=== PATIENT | female | born 1960 | race Caucasian/White ===

== ENCOUNTER 2019-04-28 18:33 | Emergency (ER) | payer SELFPAY ==
[2019-04-28] MEDS ORDERED: MORPHINE 4 MG/ML SYR ONE (19:11)
[2019-04-28] MEDS ORDERED: ONDANSETRON 4 MG (ODT) TAB ONE (19:12)
--- NOTE | 2019-04-28 19:28 | ER ---
Nurse's Notes [facility] Name: Emilee Wright Age: 59 yrs Sex: Female : 1960 Arrival Date: 04/28/2019 Time: 18:36 Bed 18 Private MD: Diagnosis: Zoster [herpes zoster] Presentation: 04/28 18:39 Presenting complaint: Painful rash on left flank and abdomen x 1 week. Seen by PCP, hb told she has shingles. Transition of care: patient was not received from another setting of care. Onset of symptoms was April 28, 2019. Risk Assessment: Do you want to hurt yourself or someone else? Patient reports no desire to harm self or others. Initial Sepsis Screen: Does the patient meet any 2 criteria? No. Patient's initial sepsis screen is negative. Does the patient have a suspected source of infection? No. Patient's initial sepsis screen is negative. Care prior to arrival: None. 18:39 Method Of Arrival: Ambulatory hb 18:39 Acuity: CARLYLE 4 hb Historical: - Allergies: 18:41 diphenhydramine HCl; hb 18:41 loratadine; hb - Home Meds: 18:41 Metformin Oral [Active]; indapamide oral oral [Active]; unknown insulin [Active]; hb unknown HTN med [Active]; - PMHx: 18:41 Diabetes - IDDM; Hypertension; hb - PSHx: 18:41 Cholecystectomy; hb - Immunization history:: Adult Immunizations up to date. - Social history:: Smoking status: Patient/guardian denies using tobacco. - Ebola Screening: : No symptoms or risks identified at this time. Screenin:20 Abuse screen: Denies threats or abuse. Nutritional screening: No deficits noted. ea Tuberculosis screening: No symptoms or risk factors identified. Fall Risk None identified. Assessment: 19:18 General: Appears in no apparent distress. Behavior is calm, cooperative, appropriate ea for age. Pain: Complains of pain in left flank. Neuro: Level of Consciousness is awake, alert, obeys commands, Oriented to person, place, time, situation. Respiratory: Airway is patent Respiratory effort is even, unlabored, Respiratory pattern is regular, symmetrical. Derm: Skin is pink, warm \T\ dry. 19:52 Reassessment: Patient and/or family updated on plan of care and expected duration. Pain ea level reassessed. Patient is alert, oriented x 3, equal unlabored respirations, skin warm/dry/pink. Discharge instruction given to patient, verbalized the understanding of instruction. Pt left ED ambulatory accompanied by family, tolerating well. Vital Signs: 18:41 BP 165 / 74; Pulse 83; Resp 16; Temp 97.5; Pulse Ox 100% on R/A; Weight 65.32 kg; hb Height 5 ft. 3 in. (160.02 cm); Pain 10/10; 18:41 Body Mass Index 25.51 (65.32 kg, 160.02 cm) hb ED Course: 18:36 Patient arrived in ED. as 18:40 Triage completed. hb 18:41 Arm band placed on. hb 18:51 Evgeny Carrillo NP is PHCP. pm1 18:51 Lazaro Simpson MD is Attending Physician. pm1 19:20 Patient has correct armband on for positive identification. Bed in low position. Call ea light in reach. 19:53 No provider procedures requiring assistance completed. Patient did not have IV access ea during this emergency room visit. 19:55 Chrissy West RN is Primary Nurse. ea Administered Medications: 19:20 Drug: morphine 4 mg {Note: RASS 0.} Route: IM; Site: right deltoid; ea 19:52 Follow up: Response: No adverse reaction; RASS: Alert and Calm (0) ea 19:20 Drug: Zofran 4 mg Route: PO; ea 19:52 Follow up: Response: No adverse reaction; Nausea is decreased ea 19:52 Drug: Neurontin 300 mg Route: PO; ea 19:53 Follow up: Response: Medication administered at discharge. ea 19:52 Drug: Valtrex 1000 mg Route: PO; ea 19:53 Follow up: Response: Medication administered at discharge. ea Outcome: 19:27 Discharge ordered by MD. pm1 19:54 Discharged to home ambulatory, with family. ea 19:54 Condition: stable 19:54 Discharge instructions given to patient, Instructed on discharge instructions, follow up and referral plans. medication usage, Demonstrated understanding of instructions, follow-up care, medications, Prescriptions given X 3. 19:55 Patient left the ED. ea Signatures: Parul Daniel Patrick, NP PASSENGER SERVICE AGENT pm1 Stephanie Guadarrama RN RN Chrissy West RN RN ea Corrections: (The following items were deleted from the chart) 19:34 19:20 morphine 4 mg IM in right deltoid angelika 19:52 19:52 Response: No adverse reaction angelika carney
--- NOTE | 2019-04-28 19:28 | EDPHYS ---
Physician Documentation [facility] Name: Emilee Wright Age: 59 yrs Sex: Female : 1960 Arrival Date: 04/28/2019 Time: 18:36 Bed 18 Private MD: ED Physician Lazaro Simpson HPI: 04/28 19:15 This 59 yrs old Female presents to ER via Ambulatory with complaints of pm1 Shingles. 19:15 The patient's rash thought to be caused by shingles. The rash is located on the left pm1 mid back and left side abdomen. The rash can be described as vesicular. Onset: The symptoms/episode began/occurred 9 day(s) ago. Associated signs and symptoms: Pertinent negatives: fever. Severity of symptoms: in the emergency department the symptoms are worse. Treatment given at home: Has been taking Tramadol but not effective. The patient has not experienced similar symptoms in the past. The patient has been recently seen by a physician: the patient's primary care provider, Dr. Whitfield. Recommended continuation of Tramadol for shingles. Historical: - Allergies: 18:41 diphenhydramine HCl; hb 18:41 loratadine; hb - Home Meds: 18:41 Metformin Oral [Active]; indapamide oral oral [Active]; unknown insulin [Active]; hb unknown HTN med [Active]; - PMHx: 18:41 Diabetes - IDDM; Hypertension; hb - PSHx: 18:41 Cholecystectomy; hb - Immunization history:: Adult Immunizations up to date. - Social history:: Smoking status: Patient/guardian denies using tobacco. - Ebola Screening: : No symptoms or risks identified at this time. ROS: 19:16 Constitutional: Negative for fever, chills, and weight loss, Eyes: Negative for injury, pm1 pain, redness, and discharge, ENT: Negative for injury, pain, and discharge, Neck: Negative for injury, pain, and swelling, Cardiovascular: Negative for chest pain, palpitations, and edema, Respiratory: Negative for shortness of breath, cough, wheezing, and pleuritic chest pain, Abdomen/GI: Negative for abdominal pain, nausea, vomiting, diarrhea, and constipation, Back: Negative for injury and pain, MS/Extremity: Negative for injury and deformity. 19:16 Neuro: Negative for headache, weakness, numbness, tingling, and seizure. 19:16 Skin: Positive for rash, of the left mid back and left side of abdomen. Exam: 19:16 Constitutional: This is a well developed, well nourished patient who is awake, alert, pm1 and in no acute distress. Head/Face: Normocephalic, atraumatic. Chest/axilla: Normal chest wall appearance and motion. Nontender with no deformity. No lesions are appreciated. Cardiovascular: Regular rate and rhythm with a normal S1 and S2. No gallops, murmurs, or rubs. Normal PMI, no JVD. No pulse deficits. Respiratory: Lungs have equal breath sounds bilaterally, clear to auscultation and percussion. No rales, rhonchi or wheezes noted. No increased work of breathing, no retractions or nasal flaring. Abdomen/GI: Soft, non-tender, with normal bowel sounds. No distension or tympany. No guarding or rebound. No evidence of tenderness throughout. Back: No spinal tenderness. No costovertebral tenderness. Full range of motion. 19:16 Skin: Appearance: normal except for affected area, consistent with zoster. Vital Signs: 18:41 BP 165 / 74; Pulse 83; Resp 16; Temp 97.5; Pulse Ox 100% on R/A; Weight 65.32 kg; hb Height 5 ft. 3 in. (160.02 cm); Pain 10/10; 18:41 Body Mass Index 25.51 (65.32 kg, 160.02 cm) hb MDM: 19:02 Patient medically screened. pm1 19:26 Data reviewed: vital signs. Data interpreted: Pulse oximetry: on room air is 100 %. pm1 Interpretation: normal. Counseling: I had a detailed discussion with the patient and/or guardian regarding: the historical points, exam findings, and any diagnostic results supporting the discharge/admit diagnosis, the need for outpatient follow up, to return to the emergency department if symptoms worsen or persist or if there are any questions or concerns that arise at home. 19:44 ED course: Patient reports increased pain with new blister to left back area. Will pm1 discharge patient with valtrex and gabapentin . Administered Medications: 19:20 Drug: morphine 4 mg {Note: RASS 0.} Route: IM; Site: right deltoid; ea 19:52 Follow up: Response: No adverse reaction; RASS: Alert and Calm (0) ea 19:20 Drug: Zofran 4 mg Route: PO; ea 19:52 Follow up: Response: No adverse reaction; Nausea is decreased ea 19: Drug: Neurontin 300 mg Route: PO; ea 19:53 Follow up: Response: Medication administered at discharge. ea 19: Drug: Valtrex 1000 mg Route: PO; ea 19:53 Follow up: Response: Medication administered at discharge. ea Disposition: 04/28/19 19:27 Discharged to Home. Impression: Zoster [herpes zoster]. - Condition is Stable. - Discharge Instructions: Shingles. - Prescriptions for Neurontin 300 mg Oral Capsule - take 1 capsule by ORAL route every 8 hours; 30 capsule. Valtrex 1 g Oral Tablet - take 1 tablet by ORAL route every 8 hours for 7 days; 21 tablet. Tylenol- Codeine #3 300-30 mg Oral Tablet - take 2 tablets by ORAL route every 6 hours As needed; 20 tablet. - Medication Reconciliation Form, Thank You Letter, Antibiotic Education, Prescription Opioid Use form. - Follow up: Emergency Department; When: As needed; Reason: Worsening of condition. Follow up: Private Physician; When: 2 - 3 days; Reason: Recheck today's complaints, Continuance of care, Re-evaluation by your physician. - Problem is new. - Symptoms have improved. Addendum: 04/30/2019 07:40 Co-signature as Attending Physician, Lazaro Simpson MD. r n Signatures: Lazaro Simpson MD MD rn Marinas, Patrick, MERA CHEESE GRADER pm1 Stephanie Guadarrama RN RN hb Antunez, Elena, RN RN ea Corrections: (The following items were deleted from the chart) 04/28 19:55 19:27 04/28/2019 19:27 Discharged to Home. Impression: Zoster [herpes zoster]. ea Condition is Stable. Forms are Medication Reconciliation Form, Thank You Letter, Antibiotic Education, Prescription Opioid Use. Follow up: Emergency Department; When: As needed; Reason: Worsening of condition. Follow up: Private Physician; When: 2 - 3 days; Reason: Recheck today's complaints, Continuance of care, Re-evaluation by your physician. Problem is new. Symptoms have improved. pm1
[2019-04-28] MEDS ORDERED: VALACYCLOVIR 500 MG TAB ONE (19:48)
[2019-04-28] MEDS ORDERED: GABAPENTIN 300 MG CAP ONE (19:48)
[2019-04-28 20:11] VITALS: BP 165/74; TEMP 97.5; O2SAT 100
== END 2019-04-28 19:55 | disposition home or self-care (01) ==
LOC: ER 18:33
DX: B02.9 Zoster without complications (principal); I10 Essential (primary) hypertension; E11.9 Type 2 diabetes mellitus without complications; Z88.8 Allergy status to other drugs, medicaments and biological substances; Z79.4 Long term (current) use of insulin
CPT/HCPCS: 96372; 99283

== ENCOUNTER 2019-12-23 14:52 | Emergency (ER) | payer SELFPAY ==
--- OUTSIDE RECORDS SUMMARY | 2019-12-23 14:54 | XMS REPORT | Summary of Care ---
:1960 Author Organization [facility] Address [address] [place] [id number] Care Team Providers Name Role Phone Chandra Hopson MD Primary Care Provider Reason for Visit Reason Comments Results Encounter Details Date Type Department Care Team Description 09/27/2019 Telephone [facility] Family Medicine Chandra Espinoza MD Results - [place] [address] [address] [facility] [address] [facility] [place] [address] [place] [address] [phone] Allergies Active Allergy Reactions Severity Noted Date Comments Diphenhydramine Hcl Swelling 07/25/2015 Loratadine Other - See comments 07/25/2015 documented as of this encounter (statuses as of 09/27/2019) Medications Medication Sig Dispensed Refills Start Date End Date Status ondansetron (ZOFRAN, Take 1 Tab by 12 Tab 0 07/25/2015 Active HYDROCHLORIDE,) 4 mouth every 8 mg tablet (eight) hours as needed for Nausea and Vomiting (N/V). pioglitazone 15 mg Take 1 tablet by 90 tablet 3 04/04/2018 Active tabletIndications: mouth daily. Type 2 diabetes mellitus, uncontrolled, with neuropathy Lancets (ONETOUCH Use as directed. E 300 Each 3 04/04/2018 Active ULTRASOFT LANCETS) 11.40. Three times MiscIndications: Type daily 2 diabetes mellitus, uncontrolled, with neuropathy blood sugar Use as directed. E 300 Strip 3 04/04/2018 Active diagnostic (ONETOUCH 11.40. Check three VERIO) times daily stripIndications: Type 2 diabetes mellitus, uncontrolled, with neuropathy Blood-Glucose Meter Use as directed 1 Each 0 04/04/2018 Active (ADAPTIX VERIO IQ METER) MiscIndications: Type 2 diabetes mellitus, uncontrolled, with neuropathy Insulin NPH-Regular inject 30 Units 54 mL 1 04/10/2018 Active Human Rec (HUMULIN under the skin 2 70/30 U-100 KWIKPEN) (two) times daily 100 unit/mL (70-30) before breakfast injectionIndications: and dinner. Type 2 diabetes mellitus, uncontrolled, with neuropathy aspirin 81 mg Take 1 tablet by 30 tablet 2 05/12/2018 Active chewable tablet mouth daily. rosuvastatin 20 mg Take 1 tablet by 90 tablet 1 06/29/2018 Active tabletIndications: mouth at bedtime. Dyslipidemia lisinopril 5 mg Take 1 tablet by 90 tablet 1 06/29/2018 Active tabletIndications: mouth daily. Essential hypertension metformin ER 500 mg Take 1 tablet by 180 tablet 3 08/15/2018 Active 24 hr mouth 2 (two) tabletIndications: times daily with Type 2 diabetes meals. mellitus, uncontrolled, with neuropathy Insulin Use as directed 60 Syringe 5 04/23/2019 Ac tive Syringe-Needle U-100 0.3 mL 30 SyrgIndications: Type 2 diabetes mellitus, uncontrolled, with neuropathy INDAPAMIDE 2.5 mg TAKE 1 TABLET BY 90 tablet 1 05/21/2019 Active tabletIndications: MOUTH DAILY Essential hypertension TRAMADOL 50 mg TAKE 1 TABLET BY 120 tablet 0 09/24/2019 Active tabletIndications: MOUTH EVERY 6 Arthritis HOURS NEEDED FOR PAIN. insulin NPH and ADMINISTER 30 10 mL 0 09/22/2019 Active regular human 70-30 UNITS UNDER THE (NOVOLIN 70/30 U-100 SKIN TWICE DAILY INSULIN) 100 unit/mL BEFORE BREAKFAST (70-30) AND DINNER injectionIndications: Type 2 diabetes mellitus, uncontrolled, with neuropathy documented as of this encounter (statuses as of 09/27/2019) Active Problems Problem Noted Date Chest pain 05/10/2018 Family history of coronary artery disease 05/10/2018 Type 2 diabetes mellitus, uncontrolled, with neuropath y 04/04/2018 Neuropathy 04/04/2018 Dyslipidemia 04/04/2018 Arthritis 11/25/2015 Essential hypertension 05/28/2015 documented as of this encounter (statuses as of 09/27/2019) Resolved Problems Problem Noted Date Resolved Date Type 2 diabetes mellitus without complication 05/28/2015 04/04/2018 documented as of this encounter (statuses as of 09/27/2019) Immunizations Name Administration Dates Next Due Influenza Virus Vaccine Quad IM Multi-dose 6+ MO 04/04/2018 documented as of this encounter Social History Tobacco Use Types Packs/Day Years Used Date Former Smoker Smokeless Tobacco: Never Used Sex Assigned at Date Recorded Not on file Job Start Date Occupation Industry Not on file Not on file Not on file Travel History Travel Start Travel End No recent travel history available. COVID-19 Exposure Response Date Recorded In the last month, have you been in contact with No / Unsure 09/25/2019 8:11 AM CDT someone who was confirmed or suspected to have Coronavirus / COVID-19? documented as of this encounter Last Filed Vital Signs Not on filedocumented in this encounter Plan of Treatment Date Type Specialty Care Team Description 10/04/2019 Telemedicine Visit Family Medicine Jyotsna Hopson MD [address] [id number] [phone] Health Maintenance Due Date Last Done Comments HEPATITIS C (HCV) SCREEN 1960 PNEUMOCOCCAL 0-64 YEARS COMBINED 1967 SERIES (1 of 1 - PPSV23) DTaP,Tdap,and Td Vaccines (1 - 1972 Tdap) PAP SMEAR 1982 Breast Cancer Screening 2001 (MAMMOGRAM) COLONOSCOPY 2011 Zoster Recombinant Vaccine 2011 (SHINGRIX) (1 of 2) LUNG CANCER SCREEN: Recommended 2016 for age 55-80 with 30 + pack year history URINE MICROALBUMIN 10/26/2018 10/26/2017 INFLUENZA VACCINE (#1) 2019 04/04/2018 FOOT EXAM 04/04/2019 04/04/2018, 04/04/2018, 10/26/2017, Additional history exists LDL-C 04/04/2019 04/04/2018, 10/21/2017, 04/26/2017, Additional history exists EYE EXAM 04/07/2019 04/07/2018 CREATININE (SERUM) 05/11/2019 05/11/2018, 05/10/2018, 04/04/2018, Additional history exists HgA1C 03/26/2020 09/25/2019, 05/11/2018, 04/04/2018, Additional history exists documented as of this encounter Results Not on filedocumented in this encounter
--- OUTSIDE RECORDS SUMMARY | 2019-12-23 14:54 | XMS REPORT | Summary of Care ---
:1960 Author Organization [facility] Address [address] [place] [address] Care Team Providers Name Role Phone Chandra Hopson MD Primary Care Provider Reason for Visit Reason Comments LAB Encounter Details Date Type Department Care Team Description 09/25/2019 Color Control Supervisor Visit [facility] Chandra Hopson MD [address] [place] [address] Type 2 diabetes Professional Office 2, Adc Lab mellitus, Building Phlebotomy [facility], with Lab neuropathy Professional Office Building [address] , [address] [place] [address] Allergies Active Allergy Reactions Severity Noted Date Comments Diphenhydramine Hcl Swelling 07/25/2015 Loratadine Other - See comments 07/25/2015 documented as of this encounter (statuses as of 09/25/2019) Medications Medication Sig Dispensed Refills Start Date [...] as directed 1 Each 0 04/04/2018 Active (AmiareTOUCH VERIO IQ METER) MiscIndications: Type 2 diabetes [...] as of this encounter (statuses as of 09/25/2019) Active Problems Problem Noted Date Chest pain 05/10/2018 Family history of coronary artery disease 05/10/2018 Type 2 diabetes mellitus, uncontrolled, with neuropath y 04/04/2018 Neuropathy 04/04/2018 Dyslipidemia 04/04/2018 Arthritis 11/25/2015 Essential hypertension 05/28/2015 documented as of this encounter (statuses as of 09/25/2019) Resolved Problems Problem Noted Date Resolved Date Type 2 diabetes mellitus without complication 05/28/2015 04/04/2018 documented as of this encounter (statuses as of 09/25/2019) Immunizations Name Administration Dates Next Due Influenza [...] filedocumented in this encounter Plan of Treatment Health Maintenance Due Date Last Done Comments [...] pack year history URINE MICROALBUMIN 10/26/2018 10/26/2017 HgA1C 11/09/2018 05/11/2018, 04/04/2018, 10/21/2017, Additional history exists INFLUENZA VACCINE (#1) 2019 04/04/2018 FOOT EXAM 04/04/2019 04/04/2018, 04/04/2018, 10/26/2017, Additional history exists LDL-C 04/04/2019 04/04/2018, 10/21/2017, 04/26/2017, Additional history exists EYE EXAM 04/07/2019 04/07/2018 CREATININE (SERUM) 05/11/2019 05/11/2018, 05/10/2018, 04/04/2018, Additional history exists documented as of this encounter Results Not on filedocumented in this encounter Visit Diagnoses Diagnosis Type 2 diabetes mellitus, uncontrolled, with neuropathy Type II or unspecified type diabetes albaro litus with neurological manifestations, uncontrolled documented in this encounter
--- OUTSIDE RECORDS SUMMARY | 2019-12-23 14:54 | XMS REPORT | Continuity of Care Document ---
:1960 Author Organization [facility] t Address [address] [place] [place] [address] Care Team Providers Name Role Phone Mark Anthony SCHREIBER Attending Clinician 2, Lab Attending Clinician Unavailable Doctor Unassigned, Name Attending Clinician Unavailable Problems This patient has no known problems. Allergies, Adverse Reactions, Alerts This patient has no known allergies or adverse reactions. Medications This patient has no known medications. Procedures This patient has no known procedures. Encounters Start End Encounter Admission Attending Care Care Encounter Source Date/Time Date/Time Type Type Clinicians Facility Department ID 2019-12-18 2019-12-18 JIL Figueredo [id number] 00:00:00 00:00:00 [facility] [id number] [place] [id number] Professio [phone] nal [facility] Office Building One 2019-10-22 2019-10-22 JIL Figueredo [id number] 00:00:00 00:00:00 [facility] [id number] [place] [id number] Professio [phone] nal 044 Office Building One 2019-10-05 2019-10-05 YEIMI Figueredo [id number] 00:00:00 00:00:00 Chandra POPE [id number] [facility] [id number] [id number] 2019-10-04 2019-10-04 Telemedici Mark Anthony [facility] [id number] 07:10:36 07:25:36 ne Visit Chandra Chun [id number] [place] [id number] Professio [phone] 2019-09-27 2019-09-27 Telephone Mark Anthony [facility] [id number] 00:00:00 00:00:00 Chandra [facility] [id number] [place] [id number] Professio [phone] [place] [address] [address] One 2019-09-25 2019-09-25 Commissary Steward 2, Adc Lab [facility] [id number] 08:11:42 08:26:42 Visit Lay [id number] [place] [id number] Professio [phone] [address] 2019-09-04 2019-09-04 Refill Mark Anthony [facility] [id number] 00:00:00 00:00:00 Chandra [facility] [id number] [place] [id number] Professio [phone] [place] [address] Office [address] One 2019-08-16 2019-08-16 Refshu Hopson [facility] [id number] 00:00:00 00:00:00 [facility]andra [facility] [id number] [place] [id number] Professio [phone] [place] [address] Office [address] One 2019-08-16 2019-08-16 Refshu Hopson [facility] [id number] 00:00:00 00:00:00 [facility] [id number] [place] [id number] Professio [phone] [place] [address] Office [address] One 2019-08-07 2019-08-07 Refshu Hopson [facility] [id number] 00:00:00 00:00:00 [facility]andra [facility] [id number] [place] [id number] Professio [phone] [place] [address] Office [address] One 2019-06-24 2019-06-24 JIL Figueredo [id number] 00:00:00 00:00:00 Chandra [facility] [id number] [place] [id number] Professio [phone] nal 044 Office Building One 2019-05-21 2019-05-21 Orders Doctor YEIMI [id number] 00:00:00 00:00:00 Only Unassigned, TOSHIA [id number] [place] [facility] [id number] [phone] 009 2019-05-02 2019-05-02 Orders Doctor YEIMI [id number] 00:00:00 00:00:00 Only Unassigned, TOSHIA [id number] [place] [facility] [id number] [id number] 2019-01-18 2019-01-18 Brii Hopson [place] [id number] 00:00:00 00:00:00 Chandra [facility] [id number] [place] [id number] Professio [phone] nal 044 Office Building One Results This patient has no known results.
--- OUTSIDE RECORDS SUMMARY | 2019-12-23 14:55 | XMS REPORT | Summary of Care ---
:1960 Author Organization [facility] Address [address] [place] [id number] Care Team Providers Name Role Phone Chandra Hopson MD Primary Care Provider Reason for Visit Reason Comments Diabetes Mellitus II Encounter Details Date Type Department Care Team Description 10/04/2019 Telemedicine Visit [facility] Chadnra Hopson, Type 2 diabetes Pediatric and Adult MD mellitus, Primary Care- [address] uncontrolled , with [employer] [address] neuropathy (Primary [address] [place], [place]) , [address] [address] [place], [place] [phone] [address] Allergies Active Allergy Reactions Severity Noted Date Comments Diphenhydramine Hcl Swelling 07/25/2015 Loratadine Other - See comments 07/25/2015 documented as of this encounter (statuses as of 10/04/2019) Medications Medication Sig Dispensed Refills Start Date [...] as directed 1 Each 0 04/04/2018 Active ([employer] Pharm[employer]TOUCH VERIO IQ METER) MiscIndications: Type 2 diabetes [...] as of this encounter (statuses as of 10/04/2019) Active Problems Problem Noted Date Chest pain 05/10/2018 Family history of coronary artery disease 05/10/2018 Type 2 diabetes mellitus, uncontrolled, with neuropath y 04/04/2018 Neuropathy 04/04/2018 Dyslipidemia 04/04/2018 Arthritis 11/25/2015 Essential hypertension 05/28/2015 documented as of this encounter (statuses as of 10/04/2019) Resolved Problems Problem Noted Date Resolved Date Type 2 diabetes mellitus without complication 05/28/2015 04/04/2018 documented as of this encounter (statuses as of 10/04/2019) Immunizations Name Administration Dates Next Due Influenza [...] Signs Not on filedocumented in this encounter Progress Notes Chandra Hopson MD - 10/04/2019 8:45 AM CDT TELEHEALTH NOTE Verbal consent obtained from Patient: Emilee Wright due to the COVID-19 pandemic for telehealth services provided below. Communication with patient was conducted via Telephone due to patient unable to obtain video call option. Location of Patient: Home Location of Provider: Office Date of Service: 10/04/2019 Chief Complaint: DM HPI: Emilee Wright is a 59 year old female with DMII, on insulin, glucose running high Past Medical History: Diagnosis Date Diabetes mellitus Hx of cholecystectomy Hypertension MEDICATIONS: Current Outpatient Medications Medication Sig Dispense Refill TRAMADOL 50 mg tablet TAKE 1 TABLET BY MOUTH EVERY 6 HOURS NEEDED FOR PAIN. 120 tablet 0 insulin NPH and regular human 70-30 (NOVOLIN 70/30 U-100 INSULIN) 100 unit/mL (70-30) injection ADMINISTER 30 UNITS UNDER THE SKIN TWICE DAILY BEFORE BREAKFAST AND DINNER 10 mL 0 INDAPAMIDE 2.5 mg tablet TAKE 1 TABLET BY MOUTH DAILY 90 tablet 1 Insulin Syringe-Needle U-100 0.3 mL 30 Syrg Use as directed 60 Syringe 5 metformin ER 500 mg 24 hr tablet Take 1 tablet by mouth 2 (two) times daily with meals. 180 tablet 3 lisinopril 5 mg tablet Take 1 tablet by mouth daily. 90 tablet 1 rosuvastatin 20 mg tablet Take 1 tablet by mouth at bedtime. 90 tablet 1 aspirin 81 mg chewable tablet Take 1 tablet by mouth daily. 30 tablet 2 Insulin NPH-Regular Human Rec (HUMULIN 70/30 U-100 KWIKPEN) 100 unit/mL (70- 30) injection [id number] Units under the skin 2 (two) times daily before breakfast and dinner. 54 mL 1 blood sugar diagnostic (ONETOUCH VERIO) strip Use as directed. E 11.40. Check three times daily 300 Strip 3 Blood-Glucose Meter (ONETOUCH VERIO IQ METER) Misc Use as directed 1 Each 0 Lancets (ONETOUCH ULTRASOFT LANCETS) Misc Use as directed. E 11.40. Three times daily 300 Each 3 pioglitazone 15 mg tablet Take 1 tablet by mouth daily. 90 tablet 3 ondansetron (ZOFRAN, HYDROCHLORIDE,) 4 mg tablet Take 1 Tab by mouth every 8 (eight) hours asneeded for Nausea and Vomiting (N/V). 12 Tab 0 No current facility-administered medications for this visit. ROS negative TELEHEALTH EXAM Alert, no distress ASSESSMENT/ PLAN Emilee Wright is a 59 year old female with PMH as above presenting with: poorly controlled diabetes, will increase insulin, moniter glucose, f/u 3 months. After visit summary (AVS ) documentation will be available through [employer] for this encounter. A total of 15 minutes was spent on the Telephone due to patient unable to obtain video call option. Chandra Hopson MD documented in this encounter Plan of Treatment Health [...] pack year history URINE MICROALBUMIN 10/26/2018 10/26/2017 FOOT EXAM 04/04/2019 04/04/2018, 04/04/2018, 10/26/2017, Additional history exists LDL-C 04/04/2019 04/04/2018, 10/21/2017, 04/26/2017, Additional history exists EYE EXAM 04/07/2019 04/07/2018 CREATININE (SERUM) 05/11/2019 05/11/2018, 05/10/2018, 04/04/2018, Additional history exists INFLUENZA VACCINE (Season Ended) 2020 04/04/2018 HgA1C 03/26/2020 09/25/2019, 05/11/2018, 04/04/2018, Additional history exists documented as of this encounter Results Not on filedocumented in this encounter Visit Diagnoses Diagnosis Type 2 diabetes mellitus, uncontrolled, with neuropathy - Primary Type II or unspecified type diabetes albaro litus with neurological manifestations, uncontrolled documented in this encounter
--- OUTSIDE RECORDS SUMMARY | 2019-12-23 14:55 | XMS REPORT | Summary of Care ---
:1960 Author Organization [facility] Address [address] [place] [id number] Care Team Providers Name Role Phone Chandra Hopson MD Primary Care Provider Reason for Visit Reason Comments Refill Request Encounter Details Date Type Department Care Team Description 10/05/2019 Refill [facility] Chandra Hopson MD Refill Request [address] [address] [place] [phone] Allergies Active Allergy Reactions Severity Noted Date Comments Diphenhydramine Hcl Swelling 07/25/2015 Loratadine Other - See comments 07/25/2015 documented as of this encounter (statuses as of 10/08/2019) Medications Medication Sig Dispensed Refills Start End Date Status Date ondansetron Take 1 Tab by mouth 12 Tab 0 Active (ZOFRAN, every 8 (eight) 6 HYDROCHLORIDE,) 4 hours as needed for mg tablet Nausea and Vomiting (N/V). pioglitazone 15 Take 1 tablet by 90 tablet 3 Active mg mouth daily. 8 tabletIndications : Type 2 diabetes mellitus, uncontrolled, with neuropathy Lancets (ONETOUCH Use as directed. E 300 Each 3 Active ULTRASOFT 11.40. Three times 8 LANCETS) daily MiscIndications: Type 2 diabetes mellitus, uncontrolled, with neuropathy blood sugar Use as directed. E 300 Strip 3 Active diagnostic 11.40. Check three 8 (ONETOUCH VERIO) times daily stripIndications: Type 2 diabetes mellitus, uncontrolled, with neuropathy Blood-Glucose Use as directed 1 Each 0 Active Meter (ONETOUCH 8 VERIO IQ METER) MiscIndications: Type 2 diabetes mellitus, uncontrolled, with neuropathy Insulin inject 30 Units 54 mL 1 Acti ve NPH-Regular Human under the skin 2 8 Rec (HUMULIN (two) times daily 70/30 U-100 before breakfast KWIKPEN) 100 and dinner. unit/mL (70-30) injectionIndicati ons: Type 2 diabetes mellitus, uncontrolled, with neuropathy aspirin 81 mg Take 1 tablet by 30 tablet 2 Active chewable tablet mouth daily. 8 rosuvastatin 20 Take 1 tablet by 90 tablet 1 Active mg mouth at bedtime. 9 tabletIndications : Dyslipidemia lisinopril 5 mg Take 1 tablet by 90 tablet 1 Active tabletIndications mouth daily. 9 : Essential hypertension metformin ER 500 Take 1 tablet by 180 tablet 3 Active mg 24 hr mouth 2 (two) times 9 tabletIndications daily with meals. : Type 2 diabetes mellitus, uncontrolled, with neuropathy Insulin Use as directed 60 Syringe 5 Act genet Syringe-Needle 9 U-100 0.3 mL 30 SyrgIndications: Type 2 diabetes mellitus, uncontrolled, with neuropathy INDAPAMIDE 2.5 mg TAKE 1 TABLET BY 90 tablet 1 Active tabletIndications MOUTH DAILY 9 : Essential hypertension TRAMADOL 50 mg TAKE 1 TABLET BY 120 tablet 0 Active tabletIndications MOUTH EVERY 6 HOURS 0 : Arthritis NEEDED FOR PAIN. insulin NPH and INJECT 30 UNITS 10 mL 0 Active regular human SUBCUTANEOUSLY 0 70-30 (NOVOLIN TWICE DAILY BEFORE 70/30 U-100 BREAKFAST AND INSULIN) 100 BEFORE SUPPER unit/mL (70-30) injectionIndicati ons: Type 2 diabetes mellitus, uncontrolled, with neuropathy insulin NPH and ADMINISTER 30 UNITS 10 mL 0 09/27 Discontinued regular human UNDER THE SKIN 0 20 70-30 (NOVOLIN TWICE DAILY BEFORE 70/30 U-100 BREAKFAST AND INSULIN) 100 DINNER unit/mL (70-30) injectionIndicati ons: Type 2 diabetes mellitus, uncontrolled, with neuropathy documented as of this encounter (statuses as of 10/08/2019) Active Problems Problem Noted Date Chest pain 05/10/2018 Family history of coronary artery disease 05/10/2018 Type 2 diabetes mellitus, uncontrolled, with neuropath y 04/04/2018 Neuropathy 04/04/2018 Dyslipidemia 04/04/2018 Arthritis 11/25/2015 Essential hypertension 05/28/2015 documented as of this encounter (statuses as of 10/08/2019) Resolved Problems Problem Noted Date Resolved Date Type 2 diabetes mellitus without complication 05/28/2015 04/04/2018 documented as of this encounter (statuses as of 10/08/2019) Immunizations Name Administration Dates Next Due Influenza [...] neurological manifestations, uncontrolled documented in this encounter Insurance Payer Benefit Plan / Subscriber ID Effective Dates Phone Addre ss Type Group [id number] HRSA [id number] HRSA [id number] Through Emiliana cy UNINSURED TESTING UNINSURED 2019 AND TREATMENT FUND documented as of this encounter
--- OUTSIDE RECORDS SUMMARY | 2019-12-23 14:56 | XMS REPORT | Summary of Care ---
:1960 Author Organization [facility] Address [address] [place] [address] Care Team Providers Name Role Phone Chandra Hopson MD Primary Care Provider Reason for Visit Reason Comments Refill Request Encounter Details Date Type Department Care Team Description 10/22/2019 Refill [facility] Chandra Espinoza MD Refill Request - [address] [address] [place] [address] [place] [address] [phone] Allergies Active Allergy Reactions Severity Noted Date Comments Diphenhydramine Hcl Swelling 07/25/2015 Loratadine Other - See comments 07/25/2015 documented as of this encounter (statuses as of 10/23/2019) Medications Medication Sig Dispensed Refills Start End [...] tabletIndications MOUTH DAILY 9 : Essential hypertension insulin NPH and INJECT 30 UNITS 10 mL 0 Active regular human SUBCUTANEOUSLY 0 70-30 (NOVOLIN TWICE DAILY BEFORE 70/30 U-100 BREAKFAST AND INSULIN) 100 BEFORE SUPPER unit/mL (70-30) injectionIndicati ons: Type 2 diabetes mellitus, uncontrolled, with neuropathy TRAMADOL 50 mg TAKE 1 TABLET BY 120 tablet 1 Active tabletIndications MOUTH EVERY 6 HOURS 0 : Arthritis NEEDED FOR PAIN TRAMADOL 50 mg TAKE 1 TABLET BY 120 tablet 0 0 Discontinued tabletIndications MOUTH EVERY 6 HOURS 0 20 : Arthritis NEEDED FOR PAIN. documented as of this encounter (statuses as of 10/23/2019) Active Problems Problem Noted Date Chest pain 05/10/2018 Family history of coronary artery disease 05/10/2018 Type 2 diabetes mellitus, uncontrolled, with neuropath y 04/04/2018 Neuropathy 04/04/2018 Dyslipidemia 04/04/2018 Arthritis 11/25/2015 Essential hypertension 05/28/2015 documented as of this encounter (statuses as of 10/23/2019) Resolved Problems Problem Noted Date Resolved Date Type 2 diabetes mellitus without complication 05/28/2015 04/04/2018 documented as of this encounter (statuses as of 10/23/2019) Immunizations Name Administration Dates Next Due Influenza [...] filedocumented in this encounter Visit Diagnoses Diagnosis Arthritis Arthropathy, unspecified, site unspecifi ed documented in this encounter Insurance Payer Benefit Plan / Subscriber ID Effective Dates Phone Addre ss Type Group [id number] HRSA [id number] HRSA [id number] Through Emiliana sanders UNINSURED TESTING UNINSURED 2019 AND TREATMENT FUND documented as of this encounter
--- OUTSIDE RECORDS SUMMARY | 2019-12-23 14:56 | XMS REPORT | Summary of Care ---
:1960 Author Organization [facility] Address [address] [place] [address] Care Team Providers Name Role Phone Chandra Hopson MD Primary Care Provider Reason for Visit Reason Comments Refill Request Encounter Details Date Type Department Care Team Description 12/18/2019 Refill [facility] Chandra Espinoza MD Refill Request - [address] [place] [address] [place] [address] [phone] Allergies Active Allergy Reactions Severity Noted Date Comments Diphenhydramine Hcl Swelling 07/25/2015 Loratadine Other - See comments 07/25/2015 documented as of this encounter (statuses as of 12/19/2019) Medications Medication Sig Dispensed Refills Start End [...] TAKE 1 TABLET BY 120 tablet 1 0 Discontinued tabletIndications MOUTH EVERY 6 HOURS 0 20 : Arthritis NEEDED FOR PAIN documented as of this encounter (statuses as of 12/19/2019) Active Problems Problem Noted Date Chest pain 05/10/2018 Family history of coronary artery disease 05/10/2018 Type 2 diabetes mellitus, uncontrolled, with neuropath y 04/04/2018 Neuropathy 04/04/2018 Dyslipidemia 04/04/2018 Arthritis 11/25/2015 Essential hypertension 05/28/2015 documented as of this encounter (statuses as of 12/19/2019) Resolved Problems Problem Noted Date Resolved Date Type 2 diabetes mellitus without complication 05/28/2015 04/04/2018 documented as of this encounter (statuses as of 12/19/2019) Immunizations Name Administration Dates Next Due Influenza [...] Travel End No recent travel history available. documented as of this encounter Last Filed Vital Signs Not on filedocumented in this encounter Plan of Treatment Health Maintenance Due Date Last Done Comments HEPATITIS C (HCV) SCREEN 1960 PNEUMOCOCCAL 0-64 YEARS COMBINED 1967 SERIES (1 of 1 - PPSV23) DTaP,Tdap,and Td Vaccines (1 - 1972 Tdap) Depression Screening 1973 PAP SMEAR 1982 Breast Cancer Screening 2001 [...] 05/10/2018, 04/04/2018, Additional history exists INFLUENZA VACCINE (#1) 2020 04/04/2018 HgA1C 03/26/2020 09/25/2019, 05/11/2018, 04/04/2018, Additional history exists documented as of this encounter Results Not on filedocumented in this encounter Visit Diagnoses Diagnosis Arthritis Arthropathy, unspecified, site unspecifi ed documented in this encounter
[2019-12-23] MEDS ORDERED: LIDOCAINE 1% MPF 30 ML VIAL ONE (16:05)
--- NOTE | 2019-12-23 16:20 | ER ---
Nurse's Notes [facility] Name: Emilee Wright Age: 59 yrs Sex: Female : 1960 Arrival Date: 12/23/2019 Time: 14:56 Bed 13 Private MD: Chandra Hopson S Diagnosis: Cutaneous abscess of groin Presentation: 12/22 15:13 Chief complaint: Right groin abscess x 1 week. Coronavirus screen: Proceed with normal hb triage. Ebola Screen: No symptoms or risks identified at this time. Initial Sepsis Screen: Does the patient meet any 2 criteria? No. Patient's initial sepsis screen is negative. Does the patient have a suspected source of infection? No. Patient's initial sepsis screen is negative. Risk Assessment: Do you want to hurt yourself or someone else? Patient reports no desire to harm self or others. Onset of symptoms was December 16, 2019. 15:13 Method Of Arrival: Ambulatory hb 15:13 Acuity: CARLYLE 4 hb Historical: - Allergies: 15:14 diphenhydramine HCl; hb 15:14 loratadine; hb - PMHx: 15:14 Diabetes - IDDM; Hypertension; hb - PSHx: 15:14 Cholecystectomy; hb - Immunization history:: Adult Immunizations up to date. - Social history:: Smoking status: Patient denies any tobacco usage or history of. Screenin:22 Abuse screen: Denies threats or abuse. Denies injuries from another. Nutritional ca1 screening: No deficits noted. Tuberculosis screening: No symptoms or risk factors identified. Fall Risk None identified. Assessment: 15:22 General: Appears in no apparent distress. comfortable, Behavior is calm, cooperative, ca1 appropriate for age. Pain: Complains of pain in groin Pain currently is 6 out of 10 on a pain scale. Pain began 5 days ago. Neuro: Level of Consciousness is awake, alert, obeys commands. GI: Abdomen is round non-distended, Bowel sounds present X 4 quads. Abd is soft and non tender X 4 quads. : No signs and/or symptoms were reported regarding the genitourinary system. EENT: No signs and/or symptoms were reported regarding the EENT system. Derm: Skin is intact, is healthy with good turgor, Skin is pink, warm \T\ dry. Abscess located on groin is dime sized, has no drainage, is hot to touch, is red, is raised. Musculoskeletal: Circulation, motion, and sensation intact. Capillary refill < 3 seconds. 16:20 Reassessment: Patient appears in no apparent distress at this time. Patient and/or ca1 family updated on plan of care and expected duration. Pain level reassessed. Patient is alert, oriented x 3, equal unlabored respirations, skin warm/dry/pink. Vital Signs: 15:13 BP 153 / 68; Pulse 84; Resp 16; Temp 100(TE); Pulse Ox 98% on R/A; Weight 68.04 kg; hb Height 5 ft. 3 in. (160.02 cm); Pain 8/10; 16:15 BP 120 / 99; Pulse 81; Resp 15 S; Pulse Ox 98% on R/A; ca1 15:13 Body Mass Index 26.57 (68.04 kg, 160.02 cm) hb ED Course: 14:56 Patient arrived in ED. ag5 14:57 Chandra Hopson MD is Private Physician. [facility] 15:08 Carlos Rucker [facility] 15:08 Sherman Schwartz MD is Attending Physician. [facility] 15:09 Micki Pierce RN is Primary Nurse. ca1 15:14 Triage completed. hb 15:22 Patient has correct armband on for positive identification. Placed in gown. Bed in low ca1 position. Call light in reach. Side rails up X 1. Pulse ox on. NIBP on. Warm blanket given. 15:24 Arm band placed on. ca1 16:27 Assist provider with I \T\ D: of an abscess on right groin area Set up I\T\D tray. ca 1 Performed by Carlos AUGUSTINE Wound packed. iodoform gauze, Patient tolerated well. 16:38 Patient did not have IV access during this emergency room visit. ca1 Administered Medications: 16:13 Drug: Lidocaine (1 %) 20 ml {Note: by FAWN Gonzalez.} Volume: 20 ml; Route: Infiltration; ca1 Outcome: 16:19 Discharge ordered by . [facility] 16:38 Discharged to home ambulatory. ca1 16:38 Condition: stable 16:38 Discharge instructions given to patient, Instructed on discharge instructions, follow up and referral plans. medication usage, wound care, Demonstrated understanding of instructions, follow-up care, medications, wound care, Prescriptions given X 2. 16:39 Patient left the ED. ca1 Signatures: Carlos Rucker PA PA jmm Baxter, Heather, JULIO RN Micki Pierce RN RN ca1 Jaimee Mena ag5
--- NOTE | 2019-12-23 16:20 | EDPHYS ---
Physician Documentation [facility] Name: Emilee Wright Age: 59 yrs Sex: Female : 1960 Arrival Date: 12/23/2019 Time: 14:56 Bed 13 Private MD: Chandra Hopson S ED Physician Sherman Schwartz HPI: 12/22 15:37 This 59 yrs old Female presents to ER via Ambulatory with complaints of Groin jmm Pain, Leg Pain, Abdominal Pain. 15:37 The patient presents with cellulitis of the groin. Onset: The symptoms/episode jmm began/occurred gradually, 1 week(s) ago. Possible cause(s): unknown. Associated signs and symptoms: Pertinent positives: erythema, Pertinent negatives: fever. This is a 59 year old female with a history of DM, HTN that presents to the ED with complaints of right groin pain for the past week. Patient is concerned it may be due to insulin injection. Denies fever. . Historical: - Allergies: 15:14 diphenhydramine HCl; hb 15:14 loratadine; hb - PMHx: 15:14 Diabetes - IDDM; Hypertension; hb - PSHx: 15:14 Cholecystectomy; hb - Immunization history:: Adult Immunizations up to date. - Social history:: Smoking status: Patient denies any tobacco usage or history of. ROS: 15:37 Constitutional: Negative for fever, chills, and weight loss, Cardiovascular: Negative jmm for chest pain, palpitations, and edema, Respiratory: Negative for shortness of breath, cough, wheezing, and pleuritic chest pain. 15:37 Skin: Positive for erythema. 15:37 All other systems are negative. Exam: 15:37 Constitutional: This is a well developed, well nourished patient who is awake, alert, jmm and in no acute distress. Head/Face: atraumatic. Eyes: EOMI, no conjunctival erythema appreciated ENT: Moist Mucus Membranes Neck: Trachea midline, Supple Chest/axilla: Normal chest wall appearance and motion. Cardiovascular: Regular rate and rhythm. No edema appreciated Respiratory: Normal respirations, no respiratory distress appreciated Abdomen/GI: Non distended, soft Back: Normal ROM 15:37 Skin: erythema noted to the right groin. 15:37 Neuro: Orientation: is normal, Mentation: is normal, Memory: is normal. 15:37 Psych: Behavior/mood is pleasant, cooperative. Vital Signs: 15:13 BP 153 / 68; Pulse 84; Resp 16; Temp 100(TE); Pulse Ox 98% on R/A; Weight 68.04 kg; hb Height 5 ft. 3 in. (160.02 cm); Pain 8/10; 16:15 BP 120 / 99; Pulse 81; Resp 15 S; Pulse Ox 98% on R/A; ca1 15:13 Body Mass Index 26.57 (68.04 kg, 160.02 cm) hb Procedures: 16:13 I \T\ D: Incision and drainage was performed for an abscess of the groin Prepped with [facility] Betadine, Incised with #11 blade. Drained moderate amount purulent fluid. Packed with sterile gauze, Dressing: sterile 4x4 gauze, the patient tolerated the procedure well. MDM: 15:09 Patient medically screened. gilbert 16:13 Data reviewed: vital signs, nurses notes. Counseling: I had a detailed discussion with [facility] the patient and/or guardian regarding: the historical points, exam findings, and any diagnostic results supporting the discharge/admit diagnosis, the need for outpatient follow up, to return to the emergency department if symptoms worsen or persist or if there are any questions or concerns that arise at home. ED course: Patient is alert and non toxic in appearance in the ED. Patient is advised to follow up with gen surgery for reevaluation. Patient is otherwise given strict return precautions. Patient understood and agrees with the plan of care. . 12/22 15:26 Order name: Incision \T\ Drainage Setup; Complete Time: 15:56 [facility] Administered Medications: 16:13 Drug: Lidocaine (1 %) 20 ml {Note: by PA. Carlos} Volume: 20 ml; Route: Infiltration; ca1 Disposition: 12/23 05:36 Co-signature as Attending Physician, Sherman Schwartz MD I agree with the assessment and [facility] plan of care. Disposition: 12/23/19 16:19 Discharged to Home. Impression: Cutaneous abscess of groin. - Condition is Stable. - Discharge Instructions: Skin Abscess, Incision and Drainage, Care After. - Prescriptions for Doxycycline Hyclate 100 mg Oral Tablet - take 1 tablet by ORAL route every 12 hours; 20 tablet. Bactrim DS 800- 160 mg Oral Tablet - take 1 tablet by ORAL route every 12 hours for 10 days; 20 tablet. - Medication Reconciliation Form, Thank You Letter, Antibiotic Education, Prescription Opioid Use form. - Follow up: Private Physician; When: 2 - 3 days; Reason: Recheck today's complaints, Continuance of care, Re-evaluation by your physician. Signatures: Sherman Schwartz MD MD cha Mickail, Joel, PA PA jmm Baxter, Heather, RN RN Micki Pierce RN RN ca1 Corrections: (The following items were deleted from the chart) 12/22 16:39 16:19 12/23/2019 16:19 Discharged to Home. Impression: Cutaneous abscess of groin. ca1 Condition is Stable. Forms are Medication Reconciliation Form, Thank You Letter, Antibiotic Education, Prescription Opioid Use. Follow up: Private Physician; When: 2 - 3 days; Reason: Recheck today's complaints, Continuance of care, Re-evaluation by your physician. cheikh
[2019-12-23 16:45] VITALS: TEMP 100; O2SAT 98
[2019-12-23 16:47] VITALS: BP 120/99
== END 2019-12-23 16:39 | disposition home or self-care (01) ==
LOC: ER 14:52
PROC: 0J9C0ZZ Drainage of Pelvic Region Subcutaneous Tissue and Fascia, Open Approach (ICD-10-PCS; principal; 2019-12-23)
DX: L02.214 Cutaneous abscess of groin (principal); I10 Essential (primary) hypertension; Z88.8 Allergy status to other drugs, medicaments and biological substances
CPT/HCPCS: 99284

== ENCOUNTER 2019-12-24 08:32 | Emergency (ER) | payer SELFPAY ==
[2019-12-24] MEDS ORDERED: NA CHLORIDE 0.9% 500 ML ONE (09:08)
[2019-12-24] MEDS ORDERED: ONDANSETRON 4 MG/2 ML VIAL ONE (09:08)
[2019-12-24 09:16] LABS: Absolute Lymphocytes (CBC) 1.3 K/uL (0.7-4.9); Basophils % 0.3 % (0-1.3); Hematocrit 36.9 % (36.0-45.0); Lymphocytes % 22.1 % (15.3-44.8); MPV 8.6 fL (7.6-11.3); RBC Red Blood Cell Count 4.34 M/uL (3.86-4.86)
[2019-12-24 09:35] LABS: Albumin 2.9 g/dL (3.4-5.0); Bilirubin Direct 0.1 mg/dL (0-0.2); Bilirubin Total 0.4 mg/dL (0.2-1.0); Potassium 3.6 mmol/L (3.5-5.1); Protein, Total 7.8 g/dL (6.4-8.2)
[2019-12-24] MEDS ORDERED: MEPERIDINE HCL 50 MG/ML ONE (09:41)
--- OUTSIDE RECORDS SUMMARY | 2019-12-24 09:47 | XMS REPORT | Continuity of Care Document ---
:1960 Author Organization [facility] t Address [address] [place] [address] Care Team Providers Name Role Phone Mark [...] Type Clinicians Facility Department ID 2019-12-18 2019-12-18 Brii Hopson [facility] 1.2.840.114 [id number] 80 00:00:00 00:00:00 [facility] [id number] [place] [id number] Professio [phone] nal 044 Office Building One 2019-10-22 2019-10-22 Brii Hopson [place] 1.2.840.114 [id number] 00:00:00 00:00:00 [facility] [id number] [place] [id number] Professio [phone] nal 044 Office Building One 2019-10-05 2019-10-05 Brii Hopson YEIMI 1.2.840.114 [id number] 00:00:00 00:00:00 Chandra POPE [id number] [facility] [id number] [phone] [id number] 2019-10-04 2019-10-04 Telemedici Mark Anthony [facility] 1.2.840.114 [id number] 07:10:36 07:25:36 ne Visit Chandra Chun [id number] [place] [id number] Professio [phone] [address] 2019-09-27 2019-09-27 [facility]phone [facility] [id number] 00:00:00 00:00:00 [facility] [id number] [place] [id number] Professio [phone] [place] [address] Office [facility] 2019-09-25 2019-09-25 Wire Bound Box Machine Helper 2, Adc Lab [facility] 1.2.840.114 [id number] 08:11:42 08:26:42 Visit Lay [id number] [place] [id number] Professio [phone] [address] 2019-09-04 2019-09-04 [facility] 1.2.840.114 [id number] 69 00:00:00 00:00:00 [facility] [id number] [place] [id number] Professio [phone] [place] [address] Office [facility] 2019-08-16 2019-08-16 [facility] 1.2.840.114 [id number] 00:00:00 00:00:00 [facility] [id number] [place] [id number] Professio [phone] [place] [address] Office [facility] 2019-08-16 2019-08-16 [facility] 1.2.840.114 [id number] 89 00:00:00 00:00:00 [facility] [id number] [place] [id number] Professio [phone] [place] [address] Office [facility] 2019-08-07 2019-08-07 [facility] 1.2.840.114 [id number] 95 00:00:00 00:00:00 [facility] [id number] [place] [id number] Professio [phone] [place] [address] Office [address] One 2019-06-24 2019-06-24 Brii Hopson [facility] 1.2.840.114 [id number] 95 00:00:00 00:00:00 [facility] [id number] [place] [id number] Professio [phone] [place] [address] Office [address] One 2019-05-21 2019-05-21 Orders Doctor YEIMI 1.2.840.114 [id number] 00:00:00 00:00:00 Only Unassigned, TOSHIA [id number] [place] [facility] [id number] [phone] 009 2019-05-02 2019-05-02 Orders Doctor YEIMI 1.2.840.114 [id number] 00:00:00 00:00:00 Only Unassigned, TOSHIA [id number] [place] [facility] [id number] [phone] [phone] 2019-01-18 [facility] 1.2.840.114 [id number] 00:00:00 00:00:00 [facility] [id number] [place] [id number] Professio [phone] [place] [address] Office [address] One Results This patient has no known results.
--- NOTE | 2019-12-24 10:01 | EDPHYS ---
Physician Documentation [facility] Name: Emilee Wright Age: 59 yrs Sex: Female : 1960 Arrival Date: 12/24/2019 Time: 08:37 Bed 7 Private MD: Chandra Hopson S ED Physician Lazaro Simpson HPI: 12/23 08:51 This 59 yrs old Female presents to ER via Unassigned with complaints of rn Vomiting. 08:51 The patient presents to the emergency department with nausea, vomiting. Onset: The rn symptoms/episode began/occurred 1 week(s) ago. Possible causes: unknown. The symptoms are aggravated by nothing. The symptoms are alleviated by nothing. Severity of symptoms: At their worst the symptoms were mild in the emergency department the symptoms are unchanged. The patient has not experienced similar symptoms in the past. Reports seen here yesterday, + s/p I\T\D vaginal abscess, which is improving, 1 week of nausea, worsened she thinks by abx, not able to hold anything down, has not had nausea medication. NO fever, no loss of taste/smell. No diarrhea. . Historical: - Allergies: 08:53 diphenhydramine HCl; iw 08:53 loratadine; iw 08:54 Phenergan; iw - PMHx: 08:53 Diabetes - IDDM; Hypertension; Pancreatitis; iw - PSHx: 08:53 Cholecystectomy; iw - Immunization history:: Adult Immunizations up to date. - Family history:: not pertinent. - Social history:: Smoking status: Patient/guardian denies using tobacco, but has a distant history of tobacco abuse. - Hospitalizations: : No recent hospitalization is reported. ROS: 08:51 Constitutional: Negative for fever, chills, and weight loss, Eyes: Negative for injury, rn pain, redness, and discharge, Cardiovascular: Negative for chest pain, palpitations, and edema, Respiratory: Negative for shortness of breath, cough, wheezing, and pleuritic chest pain, Abdomen/GI: Negative for diarrhea, and constipation, Back: Negative for injury and pain, MS/Extremity: Negative for injury and deformity, Skin: Negative for injury, rash, and discoloration, Neuro: Negative for headache, weakness, numbness, tingling, and seizure. Exam: 08:51 Constitutional: This is a well developed, well nourished patient who is awake, alert, rn and in no acute distress. Ambulatory to room without assistance or difficulty Head/Face: Normocephalic, atraumatic. Cardiovascular: Regular rate and rhythm. No pulse deficits. Respiratory: No increased work of breathing, no retractions or nasal flaring. Abdomen/GI: soft, non-tender Female : + right paravaginal/labial abscess s/p I\T\D with gauze packing, looks good. MS/ Extremity: Pulses equal, no cyanosis. Neurovascular intact. Full, normal range of motion. Equal circumference. Neuro: Awake and alert, GCS 15, oriented to person, place, time, and situation. Cranial nerves II-XII grossly intact. Motor strength 5/5 in all extremities. Sensory grossly intact. Cerebellar exam normal. Normal gait. Vital Signs: 08:52 BP 156 / 72; Pulse 89; Resp 16; Temp 98.4; Pulse Ox 97% on R/A; Weight 68.04 kg; Height iw 5 ft. 3 in. (160.02 cm); Pain 8/10; 09:27 BP 147 / 64; Pulse 88; Resp 18; Pulse Ox 95% ; sv 08:52 Body Mass Index 26.57 (68.04 kg, 160.02 cm) iw MDM: 08:40 Patient medically screened. rn 09:58 Differential diagnosis: medication side effect, DKA, viral syndrome. Data reviewed: rn vital signs, nurses notes, lab test result(s), and as a result, I will discharge patient. Counseling: I had a detailed discussion with the patient and/or guardian regarding: the historical points, exam findings, and any diagnostic results supporting the discharge/admit diagnosis, lab results, the need for outpatient follow up, to return to the emergency department if symptoms worsen or persist or if there are any questions or concerns that arise at home. Response to treatment: the patient's symptoms have markedly improved after treatment, and as a result, I will discharge patient. Special discussion: I discussed with the patient/guardian in detail that at this point there is no indication for admission to the hospital. It is understood, however, that if the symptoms persist or worsen the patient needs to return immediately for re-evaluation. ED course: Improved, tolerating PO, will dc home with prn zofran, no elevation of WBC or Creatinine, needs abx given location of infection and diabetic, return precautions given if still cannot keep abx down will return here. . 12/23 08:50 Order name: Basic Metabolic Panel; Complete Time: 09:36 rn 12/23 08:50 Order name: CBC with Diff; Complete Time: 09:28 rn 12/23 08:50 Order name: Hepatic Function; Complete Time: 09:36 rn 12/23 08:50 Order name: Lipase; Complete Time: 09:36 rn 12/23 09:01 Order name: Glucose, Ancillary Testing; Complete Time: 09:28 EDMS 12/23 08:50 Order name: IV Saline Lock; Complete Time: 09: rn 12/23 08:50 Order name: Labs collected and sent; Complete Time: : rn 12/23 08:50 Order name: Glucose Level; Complete Time: 08:52 rn Administered Medications: 09:02 Drug: Zofran (Ondansetron) 4 mg Route: IVP; Site: right forearm; iw 09:34 Follow up: Response: No adverse reaction; Marked relief of symptoms sv 09:02 Drug: NS 0.9% 500 ml Route: IV; Rate: bolus; Site: right forearm; iw 09:34 Drug: Demerol 12.5 mg {Note: rass0.} Route: IVP; Site: right forearm; sv 10:10 Follow up: Response: No adverse reaction; Pain is decreased iw Point of Care Testing: Blood Glucose: 08:52 Blood Glucose: 146 mg/dL; iw Ranges: Critical Glucose Levels:Adult <50 mg/dl or >400 mg/dl <40 mg/dl or >180 mg/dl Disposition: 12/24/19 10:00 Discharged to Home. Impression: Nausea with vomiting, unspecified. - Condition is Stable. - Discharge Instructions: Nausea and Vomiting, Adult. - Prescriptions for Zofran ODT 4 mg Oral tablet,disintegrating - place 1 tablet by TRANSLINGUAL route every 8 hours As needed; 20 tablet. - Medication Reconciliation Form, Thank You Letter, Antibiotic Education, Prescription Opioid Use form. - Follow up: Private Physician; When: As needed; Reason: Recheck today's complaints, Re-evaluation by your physician. - Problem is new. - Symptoms have improved. Signatures: Dispatcher [employer] EDOpal Arce, RN RN sv Alyson Portillo RN RN iw Lazaro Simpson MD MD welder journeyman: (The following items were deleted from the chart) 10: 10:00 12/24/2019 10:00 Discharged to Home. Impression: Nausea with vomiting, iw unspecified. Condition is Stable. Forms are Medication Reconciliation Form, Thank You Letter, Antibiotic Education, Prescription Opioid Use. Follow up: Private Physician; When: As needed; Reason: Recheck today's complaints, Re-evaluation by your physician. Problem is new. Symptoms have improved. rn
--- NOTE | 2019-12-24 10:01 | ER ---
Nurse's Notes [facility] Name: Emilee Wright Age: 59 yrs Sex: Female : 1960 Arrival Date: 12/24/2019 Time: 08:37 Bed 7 Private MD: Chandra Hopson S Diagnosis: Nausea with vomiting, unspecified Presentation: 12/23 08:50 Chief complaint: Patient states: was seen here yesterday and had boil lanced in her iw genital area, vomited 4 times last night, was nauseated before she came in since last Tuesday. Coronavirus screen: Patient denies a cough. Patient denies shortness of breath or difficulty breathing. Patient denies measured and/or subjective temperature greater than 100.4F prior to today's visit. Patient denies travel on a cruise ship or to a country the [facility] currently lists as an affected area. Patient denies contact with known and/or suspected case of COVID-19. Proceed with normal triage. 08:50 Method Of Arrival: Ambulatory iw 08:55 Ebola Screen: Patient negative for fever greater than or equal to 101.5 degrees iw Fahrenheit, and additional compatible Ebola Virus Disease symptoms Patient denies exposure to infectious person. Patient denies travel to an Ebola-affected area in the 21 days before illness onset. No symptoms or risks identified at this time. Initial Sepsis Screen: Does the patient meet any 2 criteria? No. Patient's initial sepsis screen is negative. Does the patient have a suspected source of infection? No. Patient's initial sepsis screen is negative. Risk Assessment: Do you want to hurt yourself or someone else? Patient reports no desire to harm self or others. Onset of symptoms was December 17, 2019. 08:55 Acuity: CARLYLE 3 iw Historical: - Allergies: 08:53 diphenhydramine HCl; iw 08:53 loratadine; iw 08:54 Phenergan; iw - PMHx: 08:53 Diabetes - IDDM; Hypertension; Pancreatitis; iw - PSHx: 08:53 Cholecystectomy; iw - Immunization history:: Adult Immunizations up to date. - Family history:: not pertinent. - Social history:: Smoking status: Patient/guardian denies using tobacco, but has a distant history of tobacco abuse. - Hospitalizations: : No recent hospitalization is reported. Screenin:56 Abuse screen: Denies threats or abuse. Denies injuries from another. Nutritional iw screening: No deficits noted. Tuberculosis screening: No symptoms or risk factors identified. Fall Risk IV access (20 points). Assessment: 08:55 General: Appears in no apparent distress. Behavior is calm, cooperative. Pain: iw Complains of pain in abdomen. Neuro: Level of Consciousness is awake, alert, obeys commands, Oriented to person, place, time, situation, Moves all extremities. Full function. Cardiovascular: Patient's skin is warm and dry. Respiratory: Respiratory effort is even, unlabored, Respiratory pattern is regular, symmetrical. GI: Abdomen is non-distended, Reports nausea, vomiting. Derm: Skin is intact, is healthy with good turgor. Musculoskeletal: Range of motion: intact in all extremities. Vital Signs: 08:52 BP 156 / 72; Pulse 89; Resp 16; Temp 98.4; Pulse Ox 97% on R/A; Weight 68.04 kg; Height iw 5 ft. 3 in. (160.02 cm); Pain 8/10; 09:27 BP 147 / 64; Pulse 88; Resp 18; Pulse Ox 95% ; sv 08:52 Body Mass Index 26.57 (68.04 kg, 160.02 cm) iw ED Course: 08:37 Patient arrived in ED. mr 08:37 Chandra Hopson MD is Private Physician. mr 08:40 Lazaro Simpson MD is Attending Physician. rn 08:49 Alyson Portillo, JULIO is Primary Nurse. iw 08:55 Triage completed. iw 08:58 Initial lab(s) drawn, by me, sent to lab. Inserted saline lock: 20 gauge in right dh3 forearm, using aseptic technique. Blood collected. 09:00 Arm band placed on. sv 09:00 Patient has correct armband on for positive identification. Bed in low position. Call sv light in reach. Pulse ox on. NIBP on. 10:21 No provider procedures requiring assistance completed. IV discontinued, intact, iw bleeding controlled, No redness/swelling at site. Pressure dressing applied. Administered Medications: 09:02 Drug: Zofran (Ondansetron) 4 mg Route: IVP; Site: right forearm; iw 09:34 Follow up: Response: No adverse reaction; Marked relief of symptoms sv 09:02 Drug: NS 0.9% 500 ml Route: IV; Rate: bolus; Site: right forearm; iw 09:34 Drug: Demerol 12.5 mg {Note: rass0.} Route: IVP; Site: right forearm; sv 10:10 Follow up: Response: No adverse reaction; Pain is decreased iw Point of Care Testing: Blood Glucose: 08:52 Blood Glucose: 146 mg/dL; iw Ranges: Outcome: 10:00 Discharge ordered by . rn 10:21 Discharged to home ambulatory. iw 10:21 Condition: good 10:21 Discharge instructions given to patient, Instructed on discharge instructions, follow up and referral plans. medication usage, Demonstrated understanding of instructions, follow-up care, medications, Prescriptions given X 1. 10:22 Patient left the ED. iw Signatures: Opal Gorman RN Jalyn Alex, Alyson, RN JULIO iw Lazaro Simpson MD MD rn Herrera, Ryanne dh3 Corrections: (The following items were deleted from the chart) 09:03 08:52 BP 156 / 72; Pulse 89bpm; Resp 16bpm; Pulse Ox 97% RA; Temp 98.4F; iw iw
[2019-12-24 10:28] VITALS: BP 147/64; O2SAT 95
[2019-12-24 10:29] VITALS: TEMP 98.4
== END 2019-12-24 10:22 | disposition home or self-care (01) ==
LOC: ER 08:32
DX: R11.2 Nausea with vomiting, unspecified (principal); I10 Essential (primary) hypertension; Z88.8 Allergy status to other drugs, medicaments and biological substances
CPT/HCPCS: 36415; 80048; 80076; 82947; 83690; 85025; 96374; 96375; 99284; J2175; J2405; J7040

== ENCOUNTER 2019-12-26 17:29 | Emergency (ER) | payer SELFPAY ==
--- OUTSIDE RECORDS SUMMARY | 2019-12-26 17:31 | XMS REPORT | Continuity of Care Document ---
:1960 Author Organization [facility] t Address [address] [place] [address] Care Team Providers Name Role Phone Mark [...] Department ID 2019-12-18 2019-12-18 JIL Figueredo 1.2.840.114 [id number] 00:00:00 00:00:00 [facility] [id number] [place] [id number] Professio [phone] nal [facility] Office Building One 2019-10-22 2019-10-22 Brii Hopson [place] 1.2.840.114 [id number] 00:00:00 00:00:00 [facility] [id number] [place] [id number] Professio [phone] nal 044 Office Building One 2019-10-05 2019-10-05 YEIMI Figueredo 1.2.840.114 [id number] 00:00:00 00:00:00 Chandra POPE 350.1.13.10 [facility] [phone] [id number] 2019-10-04 2019-10-04 Telemedici Mark Anthony [facility] 1.2.840.114 [id number] 07:10:36 07:25:36 ne Visit Chandra Chun 350.1.13.10 [place] [id number] Professio [phone] [place] [address] Building 2019-09-27 2019-09-27 [facility]phone [facility] [id number] 00:00:00 00:00:00 [facility] 350.1.13.10 [place] [id number] Professio [phone] [place] [address] Office Building One 2019-09-25 2019-09-25 Roof Slater 2, Adc Lab [facility] 1.2.840.114 [id number] 08:11:42 08:26:42 Visit Lay 350.1.13.10 [place] [id number] Professio [phone] [address] 2019-09-04 2019-09-04 [facility]ill [facility] 1.2.840.114 [id number] 00:00:00 00:00:00 [facility] 350.1.13.10 [place] [id number] Professio [phone] [place] [address] Office Building One 2019-08-16 2019-08-16 [facility]ill [facility] 1.2.840.114 [id number] 00:00:00 00:00:00 [facility] 350.1.13.10 [place] [id number] Professio [phone] [place] [address] Office Building One 2019-08-16 2019-08-16 Refill [facility] 1.2.840.114 [id number] 89 00:00:00 00:00:00 [facility] 350.1.13.10 [place] 4.2.7.2.686 Professio [phone] [place] [address] Office Building One 2019-08-07 2019-08-07 Refshu Hopson [facility] 1.2.840.114 [id number] 95 00:00:00 00:00:00 [facility] 350.1.13.10 [place] 4.2.7.2.686 Professio [phone] [place] [address] Office Building One 2019-06-24 2019-06-24 Refshu Hopson [facility] 1.2.840.114 [id number] 95 00:00:00 00:00:00 [facility] 350.1.13.10 [place] [id number] Professio [phone] nal 044 Office Building One 2019-05-21 2019-05-21 Orders Doctor YEIMI 1.2.840.114 [id number] 05 00:00:00 00:00:00 Only Unassigned, TOSHIA 350.1.13.10 [place] [facility] 4.2.7.2.686 [phone] [id number] 2019-05-02 2019-05-02 Orders Doctor YEIMI 1.2.840.114 [id number] 64 00:00:00 00:00:00 Only Unassigned, TOSHIA 350.1.13.10 [place] [facility] 4.2.7.2.686 [id number] [id number] 2019-01-18 2019-01-18 Marcelinashu [facility] 1.2.840.114 [id number] 00:00:00 00:00:00 [facility] 350.1.13.10 [place] [id number] Professio [phone] nal 044 Office Building One Results This patient has no known results.
[2019-12-26] MEDS ORDERED: NA CHLORIDE 0.9% 1,000 ML ONE (19:13)
[2019-12-26 19:16] LABS: Absolute Lymphocytes (CBC) 1.9 K/uL (0.7-4.9); Basophils % 0.4 % (0-1.3); Hematocrit 35.7 % (36.0-45.0); Lymphocytes % 33.9 % (15.3-44.8); MPV 8.7 fL (7.6-11.3); RBC Red Blood Cell Count 4.21 M/uL (3.86-4.86)
[2019-12-26 19:26] LABS: ALT/SGPT 22 U/L (12-78); AST/SGOT 30 U/L (15-37); Albumin 2.9 g/dL (3.4-5.0); Alkaline Phosphatase 75 U/L (45-117); BUN Blood Urea Nitrogen 19 mg/dL (7-18); Bicarbonate 28 mmol/L (21-32); Bilirubin Direct < 0.1 mg/dL (0-0.2); Bilirubin Total 0.3 mg/dL (0.2-1.0); Glucose Level 87 mg/dL (74-106); Lipase 81 U/L (73-393); Potassium 3.4 mmol/L (3.5-5.1); Protein, Total 7.7 g/dL (6.4-8.2); Sodium Level 140 mmol/L (136-145)
[2019-12-26] MEDS ORDERED: D50W 25 GM/50 ML SYRINGE/VIAL IV ONE (19:38)
--- NOTE | 2019-12-26 23:39 | ER ---
Nurse's Notes [facility] Name: Emilee Wright Age: 59 yrs Sex: Female : 1960 Arrival Date: 12/26/2019 Time: 17:30 Bed 24 Private MD: Chandra Hopson S Diagnosis: Hypoglycemia, unspecified;Upper abdominal pain, unspecified Presentation: 12/25 17:43 Chief complaint: Patient states: Upper abdominal pain x 3-4 days, worst in the last 2 ca1 days. Reports N/V/constipation. Last BM Tuesday. Coronavirus screen: Patient denies a cough. Patient denies shortness of breath or difficulty breathing. Patient denies measured and/or subjective temperature greater than 100.4F prior to today's visit. Patient denies travel on a cruise ship or to a country the [facility] currently lists as an affected area. Patient denies contact with known and/or suspected case of COVID-19. Proceed with normal triage. Ebola Screen: Patient negative for fever greater than or equal to 101.5 degrees Fahrenheit, and additional compatible Ebola Virus Disease symptoms Patient denies exposure to infectious person. Patient denies travel to an Ebola-affected area in the 21 days before illness onset. No symptoms or risks identified at this time. Initial Sepsis Screen: Does the patient meet any 2 criteria? No. Patient's initial sepsis screen is negative. Does the patient have a suspected source of infection? No. Patient's initial sepsis screen is negative. Risk Assessment: Do you want to hurt yourself or someone else? Patient reports no desire to harm self or others. Onset of symptoms was December 26, 2019. 17:43 Method Of Arrival: Ambulatory ca1 17:43 Acuity: CARLYLE 2 ca1 Triage Assessment: 17:52 General: Appears in no apparent distress. comfortable, Behavior is calm, cooperative, ca1 appropriate for age. Neuro: Level of Consciousness is awake, alert, obeys commands, Oriented to person, place, time, situation. Historical: - Allergies: 17:46 diphenhydramine HCl; ca1 17:46 loratadine; ca1 17:46 Phenergan; ca1 - PMHx: 17:46 Diabetes - IDDM; Hypertension; Pancreatitis; ca1 - PSHx: 17:46 Cholecystectomy; ca1 - Immunization history:: Adult Immunizations up to date. - Social history:: Smoking status: Patient denies any tobacco usage or history of. Screenin:41 Abuse screen: Denies threats or abuse. Denies injuries from another. Nutritional ls4 screening: No deficits noted. Tuberculosis screening: No symptoms or risk factors identified. Fall Risk None identified. Assessment: 19:40 Pain: Complains of pain in left upper quadrant and epigastric area Pain currently is 9 ls4 out of 10 on a pain scale. GI: Bowel sounds present X 4 quads. Abd is soft X 4 quads Abdomen is tender to palpation in right upper quadrant and left upper quadrant. 21:05 Reassessment: pt sitting up in bed, c/o of continued abd pain 8/10. ks7 22:05 Reassessment: Patient and/or family updated on plan of care and expected duration. Pain ls4 level reassessed. Patient is alert, oriented x 3, equal unlabored respirations, skin warm/dry/pink. 23:05 Reassessment: Patient appears in no apparent distress at this time. Patient and/or ls4 family updated on plan of care and expected duration. Pain level reassessed. Patient is alert, oriented x 3, equal unlabored respirations, skin warm/dry/pink. Patient states feeling better. Patient states symptoms have improved. Vital Signs: 17:43 BP 99 / 68; Pulse 73; Resp 15 S; Temp 97.3(TE); Pulse Ox 95% on R/A; Weight 68.04 kg ca1 (R); Height 5 ft. 3 in. (160.02 cm) (R); Pain 9/10; 18:00 BP 178 / 70; Pulse 74; Resp 16; Pulse Ox 98% on R/A; Pain 6/10; ls4 19:00 BP 136 / 78; Pulse 78; Resp 16; Temp 97.5(O); Pulse Ox 98% on R/A; Pain 6/10; ls4 21:04 BP 188 / 71; Pulse 72; Resp 18; Pulse Ox 93% ; Pain 8/10; ks7 23:22 BP 138 / 60; Pulse 72; Resp 16; Temp 97.4(O); Pulse Ox 99% on R/A; Pain 5/10; ls4 17:43 Body Mass Index 26.57 (68.04 kg, 160.02 cm) ca1 ED Course: 17:30 Patient arrived in ED. as 17:30 Chandra Hopson MD is Private Physician. as 17:45 Triage completed. ca1 17:46 Arm band placed on right wrist. ca1 17:53 Diet: Patient given juice. ca1 18:06 Katia Domínguez, JULIO is Primary Nurse. ls4 18:32 Deysi Wang F[facility]-C [facility]. snw 18:32 Chavo Bryan MD is Attending Physician. snw 18:42 Inserted saline lock: 18 gauge in right antecubital area, using aseptic technique. ls4 Blood collected. 18:42 Patient maintains SpO2 saturation greater than 95% on room air. ls4 19:41 Patient has correct armband on for positive identification. Bed in low position. Call ls4 light in reach. Side rails up X 1. quality assurance monitor body on. Pulse ox on. NIBP on. Warm blanket given. Pillow given. 19:41 No provider procedures requiring assistance completed. Initial lab(s) drawn, by al, ls4 sent to lab. 23:22 Diet: Patient given snack. Patient given water. Tolerated well. ls4 12/26 00:01 IV discontinued, intact, bleeding controlled, No redness/swelling at site. Pressure ls4 dressing applied. Administered Medications: 12/25 19:31 Drug: NS 0.9% 1000 ml Route: IV; Rate: 75 ml/hr; Site: right antecubital; ls4 23:30 Follow up: IV Status: Completed infusion; IV Intake: 300ml ls4 19:31 Drug: NS 0.9% 500 ml Route: IV; Rate: bolus; Site: right antecubital; ls4 20:08 Follow up: IV Status: Completed infusion; IV Intake: 500ml ls4 19:38 Drug: D50W 25 ml Route: IVP; Site: right antecubital; ls4 20:10 Follow up: Response: No adverse reaction; Blood sugar is elevated ls4 23:10 Drug: D50W 25 ml Route: IVP; Site: right antecubital; ls4 23:19 Follow up: Response: No adverse reaction; Marked relief of symptoms ls4 Point of Care Testing: Blood Glucose: 17:49 Blood Glucose: 69 mg/dL; ca1 Ranges: Intake: 20:08 IV: 500ml; Total: 500ml. ls4 23:30 IV: 300ml; Total: 800ml. ls4 Outcome: 23:38 Discharge ordered by MD. jackson 12/26 00:01 Patient left the ED. ls4 00:01 Discharged to home ambulatory. ls4 00:01 Condition: good 00:01 Discharge instructions given to patient, Instructed on discharge instructions, follow up and referral plans. safety practices. Signatures: Deysi Wang, TEENAGE BABYSITTER-C TEENAGE BABYSITTER-CsnParul Mahmood Lisa, RN RN ls4 Micki Pierce RN RN ca1 Aicha Morelos RN RN ks7 Corrections: (The following items were deleted from the chart) 12/25 17:49 17:43 Acuity: CARLYLE 3 ca1 ca1 19:42 19:41 Inserted saline lock: 18 gauge in right antecubital area, using aseptic ls4 technique. Blood collected. ls4 12/26 00:16 12/25 23:00 IV Status: Completed infusion; IV Intake: 300ml ls4 ls4 12/26 00:16 12/25 23:30 Response: No adverse reaction; Blood sugar is elevated ls4 ls4 12/26 00:17 12/25 23:30 IV Status: Completed infusion; IV Intake: 300ml ls4 ls4 12/26 00:17 00:13 Patient left the ED. ls4 ls4
--- NOTE | 2019-12-26 23:39 | EDPHYS ---
Physician Documentation [facility] Name: Emilee Wright Age: 59 yrs Sex: Female : 1960 Arrival Date: 12/26/2019 Time: 17:30 Bed 24 Private MD: Chandra Hopson S ED Physician Chavo Bryan HPI: 12/25 18:48 This 59 yrs old Female presents to ER via Ambulatory with complaints of snw Abdominal Pain, Vomiting. 18:48 The patient presents with abdominal pain in the epigastric area, in the upper abdomen. snw Onset: The symptoms/episode began/occurred suddenly, yesterday. The symptoms do not radiate. Associated signs and symptoms: Pertinent positives: nausea and vomiting. The symptoms are described as achy, sharp, stabbing. Severity of pain: At its worst the pain was moderate severe. The patient has experienced similar episodes in the past. It is unknown whether or not the patient has recently seen a physician. Historical: - Allergies: 17:46 diphenhydramine HCl; ca1 17:46 loratadine; ca1 17:46 Phenergan; ca1 - PMHx: 17:46 Diabetes - IDDM; Hypertension; Pancreatitis; ca1 - PSHx: 17:46 Cholecystectomy; ca1 - Immunization history:: Adult Immunizations up to date. - Social history:: Smoking status: Patient denies any tobacco usage or history of. ROS: 18:46 Constitutional: Negative for fever, chills, and weight loss, Eyes: Negative for injury, snw pain, redness, and discharge, ENT: Negative for injury, pain, and discharge, Neck: Negative for injury, pain, and swelling, Cardiovascular: Negative for chest pain, palpitations, and edema, Respiratory: Negative for shortness of breath, cough, wheezing, and pleuritic chest pain, Back: Negative for injury and pain, : Negative for injury, bleeding, discharge, and swelling, MS/Extremity: Negative for injury and deformity, Skin: Negative for injury, rash, and discoloration, Neuro: Negative for headache, weakness, numbness, tingling, and seizure. 18:46 Abdomen/GI: Positive for abdominal pain, nausea and vomiting, of the epigastric area and left upper quadrant. Exam: 18:46 Constitutional: This is a well developed, well nourished patient who is awake, alert, snw and in no acute distress. Head/Face: Normocephalic, atraumatic. Eyes: Pupils equal round and reactive to light, extra-ocular motions intact. Lids and lashes normal. Conjunctiva and sclera are non-icteric and not injected. Cornea within normal limits. Periorbital areas with no swelling, redness, or edema. ENT: Nares patent. No nasal discharge, no septal abnormalities noted. Tympanic membranes are normal and external auditory canals are clear. Oropharynx with no redness, swelling, or masses, exudates, or evidence of obstruction, uvula midline. Mucous membranes moist. Neck: Trachea midline, no thyromegaly or masses palpated, and no cervical lymphadenopathy. Supple, full range of motion without nuchal rigidity, or vertebral point tenderness. No Meningismus. Chest/axilla: Normal chest wall appearance and motion. Nontender with no deformity. No lesions are appreciated. Cardiovascular: Regular rate and rhythm with a normal S1 and S2. No gallops, murmurs, or rubs. Normal PMI, no JVD. No pulse deficits. Respiratory: Lungs have equal breath sounds bilaterally, clear to auscultation and percussion. No rales, rhonchi or wheezes noted. No increased work of breathing, no retractions or nasal flaring. Back: No spinal tenderness. No costovertebral tenderness. Full range of motion. Skin: Warm, dry with normal turgor. Normal color with no rashes, no lesions, and no evidence of cellulitis. MS/ Extremity: Pulses equal, no cyanosis. Neurovascular intact. Full, normal range of motion. Neuro: Awake and alert, GCS 15, oriented to person, place, time, and situation. Cranial nerves II-XII grossly intact. Motor strength 5/5 in all extremities. Sensory grossly intact. Cerebellar exam normal. Normal gait. Psych: Awake, alert, with orientation to person, place and time. Behavior, mood, and affect are within normal limits. 18:46 Abdomen/GI: Inspection: abdomen appears normal, Bowel sounds: normal, Palpation: moderate abdominal tenderness, in the epigastric area, no appreciated organomegaly. Vital Signs: 17:43 BP 99 / 68; Pulse 73; Resp 15 S; Temp 97.3(TE); Pulse Ox 95% on R/A; Weight 68.04 kg ca1 (R); Height 5 ft. 3 in. (160.02 cm) (R); Pain 9/10; 18:00 BP 178 / 70; Pulse 74; Resp 16; Pulse Ox 98% on R/A; Pain 6/10; ls4 19:00 BP 136 / 78; Pulse 78; Resp 16; Temp 97.5(O); Pulse Ox 98% on R/A; Pain 6/10; ls4 21:04 BP 188 / 71; Pulse 72; Resp 18; Pulse Ox 93% ; Pain 8/10; ks7 23:22 BP 138 / 60; Pulse 72; Resp 16; Temp 97.4(O); Pulse Ox 99% on R/A; Pain 5/10; ls4 17:43 Body Mass Index 26.57 (68.04 kg, 160.02 cm) ca1 MDM: 18:38 Patient medically screened. snw 23:40 Data reviewed: vital signs, nurses notes. Data interpreted: Pulse oximetry: on room air snw is 99 %. Interpretation: normal. Counseling: I had a detailed discussion with the patient and/or guardian regarding: the historical points, exam findings, and any diagnostic results supporting the discharge/admit diagnosis, lab results, the need for outpatient follow up, to return to the emergency department if symptoms worsen or persist or if there are any questions or concerns that arise at home. Response to treatment: the patient's symptoms have markedly improved after treatment. Special discussion: Based on the patient's Hx, exam, and Dx evaluation, there is no indication for emergent surgery or inpatient Tx. It is understood by the patient/guardian that if the Sx's persist or worsen they need to return immediately for re-evaluation. Based on the history and exam findings, there is no indication for further emergent testing or inpatient evaluation. I discussed with the patient/guardian the need to see the primary care provider for further evaluation of the symptoms. ED course: evaluate blood sugar in am before administering insulin. . 12/25 18:00 Order name: Glucose, Ancillary Testing; Complete Time: 18:32 EDMS 12/25 18:33 Order name: Basic Metabolic Panel; Complete Time: 19:28 snw 12/25 18:33 Order name: CBC with Diff; Complete Time: 19:20 snw 12/25 18:33 Order name: Hepatic Function; Complete Time: 19:28 snw 12/25 18:33 Order name: Lipase; Complete Time: 19:28 snw 12/25 22:47 Order name: Glucose, Ancillary Testing; Complete Time: 23:23 EDMS 12/25 18:33 Order name: IV Saline Lock; Complete Time: 19:17 snw 12/25 18:33 Order name: Labs collected and sent; Complete Time: 19:17 snw 12/25 21:48 Order name: FSBS; Complete Time: 23:20 snw 12/25 23:37 Order name: Glucose, Ancillary Testing; Complete Time: 23:41 EDMS 12/25 22:43 Order name: PO challenge; Complete Time: 23:10 snw Administered Medications: 19:31 Drug: NS 0.9% 1000 ml Route: IV; Rate: 75 ml/hr; Site: right antecubital; ls4 23:30 Follow up: IV Status: Completed infusion; IV Intake: 300ml ls4 19:31 Drug: NS 0.9% 500 ml Route: IV; Rate: bolus; Site: right antecubital; ls4 20:08 Follow up: IV Status: Completed infusion; IV Intake: 500ml ls4 19:38 Drug: D50W 25 ml Route: IVP; Site: right antecubital; ls4 20:10 Follow up: Response: No adverse reaction; Blood sugar is elevated ls4 23:10 Drug: D50W 25 ml Route: IVP; Site: right antecubital; ls4 23:19 Follow up: Response: No adverse reaction; Marked relief of symptoms ls4 Point of Care Testing: Blood Glucose: 17:49 Blood Glucose: 69 mg/dL; ca1 Ranges: Critical Glucose Levels:Adult <50 mg/dl or >400 mg/dl <40 mg/dl or >180 mg/dl Disposition: 12/26 05:47 Co-signature as Attending Physician, Chavo Bryan MD I agree with the assessment and kdr plan of care. Disposition: 12/26/19 23:38 Discharged to Home. Impression: Hypoglycemia, unspecified, Upper abdominal pain, unspecified. - Condition is Stable. - Discharge Instructions: Abdominal Pain, Adult, Hypoglycemia, Form - Daily Diabetes Record, Rehydration, Adult. - Prescriptions for Zofran 4 mg Oral Tablet - take 1 tablet by ORAL route every 12 hours As needed; 6 tablet. - Work release form, Medication Reconciliation Form, Thank You Letter, Antibiotic Education, Prescription Opioid Use form. - Follow up: Emergency Department; When: As needed; Reason: Worsening of condition. Follow up: Private Physician; When: 1 - 2 days; Reason: Recheck today's complaints, Continuance of care, Re-evaluation by your physician. Signatures: Dispatcher [employer] EDMS Chavo Bryan MD MD [facility] Deysi Wang, PREDATORY HUNTER-C PREDATORY HUNTER-CsnKatia Marcus, RN RN ls4 Micki Pierce RN RN ca1 Corrections: (The following items were deleted from the chart) 00:13 12/25 23:38 12/26/2019 23:38 Discharged to Home. Impression: Hypoglycemia, unspecified; ls4 Upper abdominal pain, unspecified. Condition is Stable. Forms are Medication Reconciliation Form, Thank You Letter, Antibiotic Education, Prescription Opioid Use. Follow up: Emergency Department; When: As needed; Reason: Worsening of condition. Follow up: Private Physician; When: 1 - 2 days; Reason: Recheck today's complaints, Continuance of care, Re-evaluation by your physician. snw
[2019-12-27 00:26] VITALS: BP 138/60; TEMP 97.4; O2SAT 99
== END 2019-12-27 00:13 | disposition home or self-care (01) ==
LOC: ER 17:29
DX: E11.649 Type 2 diabetes mellitus with hypoglycemia without coma (principal); I10 Essential (primary) hypertension; Z88.8 Allergy status to other drugs, medicaments and biological substances
CPT/HCPCS: 36415; 80048; 80076; 82947; 83690; 85025; 96361; 96374; 99285; J7030

== ENCOUNTER 2024-09-02 07:48 | Emergency (ER) | payer SELFPAY ==
--- OUTSIDE RECORDS SUMMARY | 2024-09-02 08:10 | XMS REPORT | Continuity of Care Document ---
Author Name Unknown Address [address] [facility] [address] [facility] [address] [place] [address] [facility] Address [address] [facility] 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 Role Phone YANETH HOPSON Primary Care Physician Unavailab DAHLIA Buck Attending Clinician Unavailable DAHLIA MOHR Attending Clinician Unavailable YAKOV CUADRA Attending Clinician Unav JOHN Quesada Attending Clinician Unava ilYANETH Neal Attending Clinician Unavailable JOSE ALBERTO SIU Attending Clinician Unavailable JOSE ALBERTO SIU Attending Clinician Unavailable Salbador SCHREIBER, Jose Alberto Attending Clinician [phone] Hedy Dempsey MD Attending Clinician +[phone] Yaneth Hopson MD Attending Clinician + [phone] Concepcion Tierney Attending Clinician Unavailable Missy Zhou Attending Clinician Unavailable José Dickson Attending Clinician Unavailable Winifred Marion Attending Clinician UnavailMushtaq Norris Attending Clinician Unavailable Yakov Wilson Attending Clinician Unavailable CARLA GAYLE Attending Clinician Unavailable Luis Armando SCHREIBER, Dahlia Attending Clinician + Yakov Cuadra MD Attending Clinician + Rubens SCHREIBER, John Cordero Attending Clinician [phone] Mitch SCHREIBER, Carla Attending Clinician + [phone] Resource, [facility] Attending Clinician Unavailable Services, [facility], [facility] Attending Clinician Unav ailable DEBBIE COBB Attending Clinician Unavailable Jaime Paris PA-C Attending Clinician + Unknown, Attending Attending Clinician Unavailab JAIME Marr Attending Clinician Unavailable HEDY DEMPSEY Attending Clinician Unavailable Jaden Fam MD Attending Clinician + Bailey Brandt Attending Clinician + [phone] Yaneth Hopson MD Attending Clinician + [phone] DIO VARGAS Attending Clinician Unavailable Pepe BROOKE Attending Clinician Unavailable Pepe Fatima Attending Clinician + [phone] Nurse, Garfield Cohen Attending Clinician Unavailable [email or web address] Attending Clinician Unavailjoe Vargas MD, Renae Fletcher Attending Clinician Jaden Fam MD Attending Clinician +[phone] Bailey Brandt Attending Clinician + [phone] BAILEY CATHERINE Attending Clinician Unavailable Joanne Travis RN Attending Clinician Unavailable Only, Ang Db Test Attending Clinician Unavailabl e Unknown, Attending Attending Clinician Unavailab samira Doctor Unassigned, [place] Attending Clinician U navailable Kat SAUSAGE LINKER, Paula Ace Attending Clinician Unava ilable Pob, [facility] Attending Clinician Unavailabl e Lab, Ad[facility] Fam Pob I Attending Clinician Unavailab samira Dempsey MD, Hedy Attending Clinician [phone] Monik Carranza RN Attending Clinician Unavailabl e Ashly CAD DESIGN ENGINEERJani Attending Clinician + [phone] JANI KLEIN Attending Clinician Unavailable 2, [facility] Attending Clinician Unavailable UNKNOWN, ATTENDING Attending Clinician Unavailab YAKOV Johnson Admitting Clinician Unav JOSE ALBERTO Ayers Admitting Clinician Unavailable Concepcion Tierney Admitting Clinician Unavailable Yaneth Hopson Admitting Clinician Unavailabl Winifred Phillips Admitting Clinician Unavailabl Mushtaq Cortes Admitting Clinician Unavailable Khalif SCHREIBER, Yakov Callaway Admitting Clinician + [email or web address] Admitting Clinician Unavaila ble Payers Payer Name Policy Type Policy Number Effective Date Expirati on Date Source HIM [facility] BL[facility] ADVANTAGE O [id number] 2024 00:00:00 Problems Condition Name Condition Details Condition Category Status Onset Date Resolution Date Last Treatment Date Treating Clinician Comments Source Pleuritic chest pain Pleuritic chest pain Disease Active 2023-05 00:00: [address] elevation myocardial infarction (STEMI) of inferior wall ST elevation myocardial infarction (STEMI) of inferior wall Disease Active 2023-05 00:00: 00 Alfonso Jeffries On mechanical ly assisted ventilatio n (CMS/HCC) On mechanical ly assisted ventilatio n (CMS/HCC) Disease Active 2023-05 00:00: 00 Alfonso Jeffries Fall Fall Disease Active 2023-05 00:00: 00 Alfonso Jeffries GUILHERME (acute kidney injury) GUILHERME (acute kidney injury) Disease Active 2023-05 0 00:00: 00 Alfonso Jeffries Acute respirator y alkalosis Acute respirator y alkalosis Disease Active 2023-05 00:00: 00 Alfonso Jeffries Anemia of chronic disease Anemia of chronic disease Disease Active 2023-05 00:00: 00 Alfonso Jeffries Toxic metabolic encephalop athy Toxic metabolic encephalop athy Disease Active 2023-05 00:00: 00 Alfonso Jeffries Acute hypoxemic respirator y failure Acute hypoxemic respirator y failure Disease Active 2023-05 00:00: 00 Alfonso Jeffries Atelectasi s Atelectasi s Disease Active 2023-05 00:00: 00 Alfonso Jeffries Cardiogeni c shock Cardiogeni c shock Disease Active 2023-05 00:00: 00 Alfonso Jeffries Severe sepsis Severe sepsis Disease Active 2023-05 00:00: 00 Alfonso Jeffries Shock liver Shock liver Disease Active 2023-05 00:00: 00 Alfonso Jeffries Hyperkalem ia Hyperkalem ia Disease Active 2023-05 00:00: 00 Alfonso Jeffries Pleural effusion, bilateral Pleural effusion, bilateral Disease Active 2023-05 00:00: 00 Alfonso Jeffries Adrenal nodule Adrenal nodule Disease Active 2023-05 00:00: 00 Alfonso Jeffries Shock (CMS/HCC) Shock (CMS/HCC) Disease Active 2023-05 00:00: 00 Alfonso Jeffries Heart block Heart block Disease Active 2023-05 00:00: 00 Alfonso Jeffries 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) 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) Disease Active 2023-05 00:00: 00 Alfonso Jeffries Type 2 diabetes mellitus without complicati on, with long-term current use of insulin Type 2 diabetes mellitus without complicati on, with long-term current use of insulin Disease Active 09-14 00:00: 00 [facility] Type 2 diabetes mellitus without complicati on, with long-term current use of insulin Type 2 diabetes mellitus without complicati on, with long-term current use of insulin Disease Active 09-14 00:00: 00 [facility] Chest pain Chest pain Disease Active 2017-05 00:00: 00 [facility] Family history of coronary artery disease Family history of coronary artery disease Disease Active 2017-05 00:00: 00 [facility] Neuropathy Neuropathy Disease Active 2017-05 00:00: 00 [facility] Dyslipidem ia Dyslipidem ia Disease Active 2017-05 00:00: 00 [facility] Arthritis Arthritis Disease Active 11-24 00:00: 00 [facility] Essential hypertensi on Essential hypertensi on Disease Active 2014-05 00:00: 00 [facility] Type 2 diabetes mellitus, uncontroll ed, with neuropathy Type 2 diabetes mellitus, uncontroll ed, with neuropathy Disease Resolve d 2017-05 00:00: 00 2023-09-15 00:00:00 2023-09-15 12:29:06 [facility] Type 2 diabetes mellitus, uncontroll ed, with neuropathy Type 2 diabetes mellitus, uncontroll ed, with neuropathy Disease Resolve d 2017-05 00:00: 00 2023-09-15 00:00:00 2023-09-15 12:29:06 [facility] Type 2 diabetes mellitus without complicati on Type 2 diabetes mellitus without complicati on Disease Resolve d 2014-05 00:00: 00 2018-04-04 00:00:00 2018-04-04 09:24:08 [facility] Type 2 diabetes mellitus without complicati on Type 2 diabetes mellitus without complicati on Disease Resolve d 2014-05 00:00: 00 2018-04-04 00:00:00 2018-04-04 09:24:08 [facility] Allergies, Adverse Reactions, Alerts Allergy Name Allergy Type Status Severity Reaction(s) Onset Date Inactive Date Treating Clinician Comments Source No Known Allergie s DA Active U 2023-05 00:00: 00 [facility] are [facility] No Known Allergie s DA Active U 2023-05 00:00: 00 [facility] DRUG INGREDI Active Unknown-Cmnt 2022-05 00:00: 00 [facility] Fentanyl Propensi ty to adverse reaction s Active 2022-05 00:00: 00 Other Reaction( s): Unknown - See comments Alfonso Jeffries DIPHENHY DRAMINE HCL DRUG INGREDI Active Swelling 07-25 00:00: 00 [facility] LORATADI NE DRUG INGREDI Active Other-Cmnt 07-25 00:00: 00 [facility] Loratadi ne Propensi ty to adverse reaction s Active Other - See comments 07-25 00:00: 00 [facility] Diphenhy dramine Propensi ty to adverse reaction s Active Swelling 07-25 00:00: 00 Alfonso Jeffries Loratadi ne Propensi ty to adverse reaction s Active Other 07-25 00:00: 00 Alfonso Jeffries Social History Social Habit Start Date Stop Date Quantity Comments Source History of tobacco use Current smoker [facility] ASSERTION Possible [facility] Gender identity Parviz carlene Daniels [facility] Sexual orientation [facility] History of Social function 2024-03-28 00:00:00 2024-03-28 00:00:00 [facility] Exposure to SARS-CoV-2 (event) 2022-09-26 00:00:00 2022-10-06 06:48:00 Not sure [facility] Tobacco use and exposure 2022-10-06 00:00:00 2022-10-06 00:00:00 Smokeless tobacco non-user [facility] Sex assigned at 1960 00:00:00 1960 00:00:00 [facility] Smoking Status Start Date Stop Date Source Tobacco smoking consumption unknown [facility] c Ex-smoker 2022-10-06 00:00:00 2022-10-06 00:00:00 [facility] Medications Ordered Medication Name Filled Medication Name Start Date Stop Date Current Medication? Ordering Clinician Indication Dosage Frequency Signature (SIG) Comments Components Source ondansetron 4 mg disintegrat ing tablet 08-22 00:00: 00 Yes [id number] 4mg Take 1 tablet by mouth every 4 (four) hours as needed for Nausea and Vomiting (N/V). [facility] traMADoL 50 mg tablet 08-22 00:00: 00 Yes [id number] 50mg Take 1 tablet by mouth every 6 (six) hours as needed for Pain (scale 4-6). Indication s: acute pain [facility] mupirocin 2 % ointment 08-14 00:00: 00 Yes [id number] Apply to area(s) 3 (three) times daily. [facility] cephALEXin 500 mg capsule 08-14 00:00: 00 08-25 04:59 :00 Yes [id number] 500mg Take 1 capsule by mouth 4 (four) times daily for 10 days. [facility] TRAMADOL 50 mg tablet 06-18 00:00: 00 08-22 00:00 :00 No [id number] TAKE 1 TABLET BY MOUTH EVERY 6 HOURS NEEDED FOR MODERATE OR CHRONIC PAIN INDICATION S: CHRONIC PAIN [facility] sodium zirconium cyclosilica te (Lokelma) packet 10 g sodium zirconium cyclosilica te (Lokelma) packet 10 g 2023-05 09:00: 00 Yes 10g QD 10 g, Oral, Daily, First dose (after last modificati on) on Tue04/12/24 at 0900, Empty entire contents of packet(s) into 45 mL water. Stir well and administer immediatel y. If powder remains, rinse glass with water and administer . Alfonso Daniels [facility] clopidogrel (Plavix) 75 MG tablet clopidogrel (Plavix) 75 MG tablet 2023-05 00:00: 00 07-11 23:59 :00 No 75mg QD Take 1 tablet by mouth 1 time each day. Alfonso Daniels [facility] sodium zirconium cyclosilica te (Lokelma) 10 g packet sodium zirconium cyclosilica te (Lokelma) 10 g packet 2023-05 00:00: 00 04-11 00:00 :00 No 10g QD Take 10 g by mouth 1 time each day. Do not start before April 12, 2024. Alfonso Daniels [facility] apixaban (Eliquis) tablet 5 mg apixaban (Eliquis) tablet 5 mg 2023-05 21:00: 00 Yes 5mg Q.5D 5 mg, Oral, Every 12 hours scheduled, First dose (after last modificati on) on Tue04/11/24 at 2100 Alfonso Daniels [facility] indapamide (Lozol) 2.5 MG tablet indapamide (Lozol) 2.5 MG tablet 2023-05 11:46: 11 Yes 2.5mg Take 2.5 mg by mouth every morning. Alfonso Daniels [facility] bumetanide (Bumex) tablet 2 mg bumetanide (Bumex) tablet 2 mg 2023-05 11:45: 00 Yes 2mg 2 mg, Oral, Once, On Tue04/11/24 at 1145, For 1 dose Alfonso Daniels [facility] sodium bicarbonate tablet 650 mg sodium bicarbonate tablet 650 mg 2023-05 10:30: 00 Yes 650mg Q.25D 650 mg, Oral, 4 times daily, First dose on Tue04/11/24 at 1030 Alfonso Daniels [facility] aspirin EC EC tablet 81 mg aspirin EC EC tablet 81 mg 2023-05 09:45: 00 Yes 81mg QD 81 mg, Oral, Daily, First dose on Tue04/11/24 at 0945, Do not crush, chew, or split. Alfonso Daniels [facility] insulin syringe-nee dle U-100 31G X 5/16" 1 mL misc insulin syringe-nee dle U-100 31G X 5/16" 1 mL misc 2023-05 00:00: 00 04-11 23:59 :00 No Use to inject 1-4 times daily as directed. Alfonso Daniels [employer] Blood Glucose Monitoring Suppl (Blood Glucose Monitor System) w/Device kit Blood Glucose Monitoring Suppl (Blood Glucose Monitor System) w/Device kit 2023-05 00:00: 00 04-11 23:59 :00 No Use daily or as directed for monitoring of diabetes. Alfonso Daniels [facility] apixaban (Eliquis) 5 MG tablet apixaban (Eliquis) 5 MG tablet 2023-05 00:00: 00 07-10 23:59 :00 No 5mg Q.5D Take 1 tablet by mouth in the morning and 1 tablet before bedtime. Alfonso Jeffries gabapentin (Neurontin) 100 MG capsule gabapentin (Neurontin) 100 MG capsule 2023-05 00:00: 00 07-10 23:59 :00 No 200mg Q.5D Take 2 capsules by mouth in the morning and 2 capsules in the evening. Alfonso Jeffries insulin NPH-insulin regular (NovoLIN 70/30) (70-30) 100 UNIT/ML injection [id number] 1-13 00:00: 00 07-10 23:59 :00 No 15U Inject 15 Units under the skin in the morning and 15 Units in the evening. Inject before meals. Alfonso Jeffries methocarbam ol (Robaxin) 500 MG tablet methocarbam ol (Robaxin) 500 MG tablet 2023-05 00:00: 00 07-10 23:59 :00 No 500mg Q.25D Take 1 tablet by mouth in the morning and 1 tablet at noon and 1 tablet in the evening and 1 tablet before bedtime. Alfonso Jeffries bumetanide (Bumex) 2 MG tablet bumetanide (Bumex) 2 MG tablet 2023-05 00:00: 00 07-10 23:59 :00 No 2mg QD Take 1 tablet by mouth 1 time each day. Alfonso Jeffries rosuvastati n (Crestor) 20 MG tablet rosuvastati n (Crestor) 20 MG tablet 2023-05 00:00: 00 07-10 23:59 :00 No 20mg QD Take 1 tablet by mouth 1 time each day. Alfonso Jeffries ezetimibe (Zetia) 10 MG tablet ezetimibe (Zetia) 10 MG tablet 2023-05 00:00: 00 07-10 23:59 :00 No 10mg QD Take 1 tablet by mouth 1 time each day. Alfonso Jeffries sevelamer carbonate (Renvela) 800 MG tablet sevelamer carbonate (Renvela) 800 MG tablet 2023-05 00:00: 00 07-10 23:59 :00 No 800mg Take 1 tablet by mouth in the morning and 1 tablet at noon and 1 tablet in the evening. Take with meals. Swallow tablet whole; do not crush, break, or chew.. Alfonso Daniels Epic sodium bicarbonate 650 MG tablet sodium bicarbonate 650 MG tablet 2023-05 00:00: 00 04-11 00:00 :00 No 650mg Q.25D Take 1 tablet by mouth in the morning and 1 tablet at noon and 1 tablet in the evening and 1 tablet before bedtime. Alfonso Daniels Epic insulin glargine (Lantus) injection 23 Units insulin glargine (Lantus) injection 23 Units 2023-05 18:00: 00 Yes 23U 23 Units, Subcutaneo us, User specified (Daily), First dose (after last modificati on) on Tue04/10/24 at 1800, Check with prescriber prior to holding the dose. Alfonso Daniels [facility] sodium zirconium cyclosilica te (Lokelma) packet 5 g sodium zirconium cyclosilica te (Lokelma) packet 5 g 2023-05 11:45: 00 04-11 10:24 :39 No 5g QD 5 g, Oral, Daily, First dose on Tue04/10/24 at 1145, Empty entire contents of packet(s) into 45 mL water. Stir well and administer immediatel y. If powder remains, rinse glass with water and administer . Administer other meds at least 2 hours before or after dose to prevent decreases in their absorption . Alfonso Daniels Epic insulin glargine (Lantus) injection 20 Units insulin glargine (Lantus) injection 20 Units 2023-05 18:00: 00 04-10 10:57 :05 No 20U 20 Units, Subcutaneo us, User specified (Daily), First dose on Tue04/09/24 at 1800, Check with prescriber prior to holding the dose. Alfonso Daniels Epic insulin lispro (HumaLOG, Admelog) injection 3-12 Units insulin lispro (HumaLOG, Admelog) injection 3-12 Units 2023-05 12:58: 12 Yes 3U [id number] 3D 3-12 Units, Subcutaneo us, 3 times daily PRN, high blood sugar, with meals, Starting on Tue04/09/24 at 1258, For BG < 70, follow hypoglycem ia protocol and notify ordering provider. If patient can eat or drink, give oral carbohydra te as ordered per hypoglycem ia protocol. If patient NPO, give dextrose 50 % IV as ordered per hypoglycem ia protocol. If NPO and no IV access, give glucagon IM as ordered per hypoglycem ia protocol. Check BG every 15 minutes and repeat treatment if continued BG < 80., Correction Insulin Dosing: (DO NOT CHANGE DEFAULT SELECTION/ VALUES): Medium, BG < 70 instructio ns: Follow Hypoglycem ia Orders, BG 70-149 instructio ns: No Dose Needed, BG 150-199: 3, BG 200-249: 6, BG 250-299: 9, BG >/= 300: 12, BG > 300 instructio ns: Contact Provider Alfonso Jeffries glucagon injection 1 mg glucagon injection 1 mg 2023-05 12:57: 24 Yes 1mg 1 mg, Intramuscu lar, As needed, For BG < 70 mg/dL if no IV access and patient is either Unconsciou s, unable to swallow or npo, Starting on Tue04/09/24 at 1257, For BG < 70 mg/dL if no IV access and patient is either Unconsciou s, unable to swallow or npo and notify . Alfonso Daniels Epic dextrose 50 % solution 25 g dextrose 50 % solution 25 g 2023-05 12:57: 24 Yes 25g 25 g, Intravenou s, As needed, other, if Blood Glucose </= 50 mg/dL, Starting on Tue04/09/24 at 1257, If BG </=50 mg/dL, give 50 mL of D50W IV push STAT and notify MD. Alfonso Daniels Epic dextrose 50 % solution 12.5 g dextrose 50 % solution 12.5 g 2023-05 12:57: 24 Yes 12.5g 12.5 g, Intravenou s, As needed, low blood sugar, if Blood Glucose 51- 69 mg/dL, Starting on Tue04/09/24 at 1257, For BG 51-69 mg/dL and patient UNCONSCIOU S OR UNABLE TO SWALLOW OR NPO: Give 25 mL of D50W IV push and notify MD. Alfonso Jeffries calcium gluconate in NaCl 50mL IVPB 1 g calcium gluconate in NaCl 50mL IVPB 1 g 2023-05 03:45: 00 04-09 07:00 :00 No 1g 1 g, Intravenou s, Administer over 30 Minutes, Once, On Tue04/09/24 at 0345, For 1 dose Alfonso Daniels Epic sodium zirconium cyclosilica te (Lokelma) packet 5 g sodium zirconium cyclosilica te (Lokelma) packet 5 g 2023-05 07:00: 00 04-08 07:57 :00 No 5g 5 g, Oral, Once, On Tue04/08/24 at 0700, For 1 dose, Empty entire contents of packet(s) into 45 mL water. Stir well and administer immediatel y. If powder remains, rinse glass with water and administer . Administer other meds at least 2 hours before or after dose to prevent decreases in their absorption . Alfonso Jeffries insulin lispro (Humalog, Admelog) injection 9 Units insulin lispro (Humalog, Admelog) injection 9 Units 2023-05 21:45: 00 04-06 21:41 :00 No 9U 9 Units, Subcutaneo us, Once, On Tue04/06/24 at 2145, For 1 dose Alfonso Jeffries apixaban (Eliquis) tablet 2.5 mg apixaban (Eliquis) tablet 2.5 mg 2023-05 21:00: 00 04-11 09:33 :33 No 2.5mg Q.5D 2.5 mg, Oral, Every 12 hours scheduled, First dose on Tue04/06/24 at 2100 Alfonso Jeffries insulin glargine (Lantus) injection 20 Units insulin glargine (Lantus) injection 20 Units 2023-05 18:00: 00 04-09 12:59 :00 No 20U 20 Units, Subcutaneo us, Every evening, First dose on Tue04/06/24 at 1800 Alfonso Jeffries heparin flush injection heparin flush injection 2023-05 15:40: 00 04-06 16:20 :[address], As needed, Starting on Tue04/06/24 at 1540, Intraproce dure Alfonso Jeffries lidocaine (Xylocaine) 1 % injection lidocaine (Xylocaine) 1 % injection 2023-05 15:28: 00 04-06 16:20 :00 No As needed, Starting on Tue04/06/24 at 1528, Intraproce dure Alfonso Jeffries midazolam (Versed) injection midazolam (Versed) injection 2023-05 15:28: 00 04-06 16:20 :00 No Intravenou s, As needed, Starting on Tue04/06/24 at 1528, Intraproce dure Alfonso Jeffries ceFAZolin (Ancef) injection ceFAZolin (Ancef) injection 2023-05 15:26: 00 04-06 16:20 :00 No As needed, Starting on Tue04/06/24 at 1526, Intraproce dure Alfonso Jeffries clopidogrel (Plavix) tablet 75 mg clopidogrel (Plavix) tablet 75 mg 2023-05 09:00: 00 Yes 75mg QD 75 mg, Oral, Daily, First dose on Tue04/06/24 at 0900 Alfonso Jeffries aspirin EC EC tablet 162 mg aspirin EC EC tablet 162 mg 2023-05 21:45: 00 04-11 09:33 :32 No 162mg Q8H 162 mg, Oral, Every 8 hours, First dose on Tue04/05/24 at 2145, Do not crush, chew, or split. Alfonso Jeffries gabapentin (Neurontin) capsule 200 mg gabapentin (Neurontin) capsule 200 mg 2023-05 12:26: 06 Yes 200mg Q.5D 200 mg, Oral, 2 times daily, First dose (after last modificati on) on Tue04/05/24 at 1700 Alfonso Jeffries clopidogrel (Plavix) tablet 600 mg clopidogrel (Plavix) tablet 600 mg 2023-05 09:00: 00 Yes 600mg 600 mg, Oral, Once, On Tue04/05/24 at 0900, For 1 dose Alfonso Jeffries melatonin tablet 3 mg melatonin tablet 3 mg 2023-05 03:04: 13 Yes 3mg Q24H 3 mg, Oral, Daily PRN, sleep, Starting on Tue04/05/24 at 0304 Alfonso Jeffries aspirin 81 MG chewable tablet - Pyxis Override Pull aspirin 81 MG chewable tablet - Pyxis Override Pull 2023-05 22:35: 40 04-04 22:51 :00 No Starting on Tue04/04/24 at 2235, For 1 dose, Created by cabinet override Alfonso Jeffries ticagrelor (Brilinta) tablet 90 mg ticagrelor (Brilinta) tablet 90 mg 2023-05 21:00: 00 04-04 22:38 :00 No 90mg 90 mg, Oral, Once, On Tue04/04/24 at 2100, For 1 dose Alfonso Jeffries insulin glargine (Lantus) injection 15 Units insulin glargine (Lantus) injection 15 Units 2023-05 17:00: 00 04-06 03:25 :07 No 15U 15 Units, Subcutaneo us, Every evening, First dose (after last modificati on) on Tue04/04/24 at 1700 Alfonso Jeffries bisacodyl (Dulcolax) suppository 10 mg bisacodyl (Dulcolax) suppository 10 mg 2023-05 11:45: 00 Yes 10mg QD 10 mg, Rectal, Daily, First dose on Tue04/04/24 at 1145 Alfonso Jeffries GI cocktail (aluminum hydroxide/m agnesium hydroxide/l idocaine/si methicone) GI cocktail (aluminum hydroxide/m agnesium hydroxide/l idocaine/si methicone) 2023-05 19:45: 00 04-03 19:55 :00 No 30mL 30 mL, Oral, Once, On Tue04/03/24 at 1945, For 1 dose Alfonso Daniels Epic insulin lispro (HumaLOG, Admelog) injection 3-12 Units [id number] 1-05 18:29: 11 04-09 12:59 :00 No 3U [id number] 3D 3-12 Units, Subcutaneo us, 3 times daily PRN, high blood sugar, with meals, Starting on Tue04/03/24 at 1829, 1. IF 2 consecutiv e BG are >160 mg/dL, notify provider. 2. IF 2 consecutiv e BG are < 110 mg/dL, notify provider. 3. IF 2 consecutiv e BG are >200 mg/dL or 1 BG is > or = to 300 mg/dL, notify provider then INITIATE Insulin drip 4. When initiating the Insulin Infusion Orders for ICU MPP, please discontinu e the ICU insulin Sub Q lexi ection dose MPP and any orders for basal SQ insulin. Select the order communicat ion type as secondary. 5. When transferri ng out of ICU please inform MD to discontinu e critical care Sub-Q orders and initiate floor Sub-Q orders , Correction Insulin Dosing: (DO NOT CHANGE DEFAULT SELECTION/ VALUES): Medium, BG < 70 instructio ns: Follow Hypoglycem ia Orders, BG 70-149 instructio ns: No Dose Needed, BG 150-199: 3, BG 200-249: 6, BG 250-299: 9, BG >/= 300: 12, BG > 300 instructio ns: Contact Provider Alfonso Daniels Epic insulin glargine (Lantus) injection 10 Units insulin glargine (Lantus) injection 10 Units 2023-05 17:00: 00 04-03 17:15 :01 No 10U 10 Units, Subcutaneo us, Every evening, First dose (after last modificati on) on Tue04/03/24 at 1700 Alfonso Daniels Epic insulin glargine (Lantus) injection 5 Units insulin glargine (Lantus) injection 5 Units 2023-05 16:30: 00 04-03 17:27 :00 No 5U 5 Units, Subcutaneo us, Once, On Tue04/03/24 at 1630, For 1 dose Alfonso Jeffries ipratropium -albuterol (Duo-Neb) 0.5-2.5 mg/3 mL nebulizer solution 3 mL ipratropium -albuterol (Duo-Neb) 0.5-2.5 mg/3 mL nebulizer solution 3 mL 2023-05 10:52: 47 Yes 3mL Q6H 3 mL, Nebulizati on, Every 6 hours PRN, wheezing, Starting on Tue04/03/24 at 1052 Alfonso Jeffries heparin 1000 units/mL injection 500 Units heparin 1000 units/mL injection 500 Units 2023-05 06:05: 33 Yes 500U 500 Units, Intracathe ter, As needed, Line Care, Starting on Tue04/03/24 at 0605, To pack IV Catheter , not flush Alfonso Jeffries hydrALAZINE (Apresoline ) tablet 25 mg hydrALAZINE (Apresoline ) tablet 25 mg 2023-05 04:15: 00 04-03 04:27 :00 No 25mg 25 mg, Oral, Once, On Tue04/03/24 at 0415, For 1 dose Alfonso Jeffries oxyCODONE (Roxicodone ) immediate release tablet 5 mg oxyCODONE (Roxicodone ) immediate release tablet 5 mg 2023-05 04:00: 00 04-03 04:10 :00 No 5mg 5 mg, Oral, Once, On Tue04/03/24 at 0400, For 1 dose Alfonso Jeffries hydrALAZINE (Apresoline ) tablet 25 mg hydrALAZINE (Apresoline ) tablet 25 mg 2023-05 15:30: 00 04-09 11:56 :57 No 25mg Q8H 25 mg, Oral, Every 8 hours, First dose (after last modificati on) on Tue04/02/24 at 1530, On hold since Tue04/05/2024 at 0933 until manually unheld Alfonso Jeffries iohexol (OMNIPaque) 350 MG/ML injection 100 mL iohexol (OMNIPaque) 350 MG/ML injection 100 mL 2023-05 14:09: 38 04-02 14:09 :00 No 100mL 100 mL, Intravenou s, Once in imaging, Starting on Tue04/02/24 at 1409, [facility] Ensure Enlive liquid 1 Container Ensure Enlive liquid 1 Container 2023-05 13:45: 00 Yes 1{conta iner} Q.5D 1 Container, Oral, 2 times daily, First dose on Tue04/02/24 at 1345 [facility] polyethylen e glycol (PEG) 3350 (Miralax) packet 17 g polyethylen e glycol (PEG) 3350 (Miralax) packet 17 g 2023-05 13:15: 00 Yes 17g QD 17 g, Oral, Daily, First dose on Tue04/02/24 at 1315, Dissolve 17 g in 120 to 240 mL (4 to 8 ounces) of beverage. [facility] sennosides (Senokot) tablet 17.2 mg sennosides (Senokot) tablet 17.2 mg 2023-05 13:15: 00 Yes 2{tbl} QD 17.2 mg (2 tablet), Oral, Daily, First dose on Tue04/02/24 at 1315 [facility] vancomycin (Vancocin) 500 mg in sodium chloride 0.9 % 100 mL IVPB-MB+ vancomycin (Vancocin) 500 mg in sodium chloride 0.9 % 100 mL IVPB-MB+ 2023-05 18:00: 00 04-03 08:50 :31 No 500mg Q12H 500 mg, Intravenou s, at 100 mL/hr, Administer over 60 Minutes, Every 12 hours, First dose on Tue04/01/24 at 1800, For 7 days, Mini-Bag Plus bag. Break seal and mix before use, as follows: For liquid drug vials, skip to step 2. 1. Hold bag with vial down. Squeeze solution into vial until half-full. Shake to suspend drug in solution. 2. Hold bag with vial upside down. Squeeze bag to force air into vial, then release to drain suspended drug from vial into bag. 3. Repeat above until vial is empty of drug and solution is thoroughly mixed. Ensure drug is completely dissolved. Do not remove drug vial. 4. Remove port protector, attach admin set per its instructio ns, then hang container from IV pole and prime set per directions . Do not use in series connection s. 5. Ensure the vial is empty of drug and in solution, then administer medication as ordered. Use within specified BUD., Suspected Indication (Select all that apply): Bloodstrea m Infection Alfonso Daniels Epic hydrALAZINE (Apresoline ) tablet 50 mg hydrALAZINE (Apresoline ) tablet 50 mg 2023-05 05:00: 00 04-02 14:28 :58 No 50mg QD 50 mg, Oral, Daily, First dose on 04/01/24 at 0500 Alfonso shavon Jeronimo Epic hydrALAZINE (Apresoline ) tablet 25 mg hydrALAZINE (Apresoline ) tablet 25 mg 2023-05 01:30: 00 04-01 01:50 :00 No 25mg 25 mg, Oral, Once, On 04/01/24 at 0130, For 1 dose Alfonso shavon [place] Epic heparin 50 units/mL in sodium chloride 0.45 % heparin 50 units/mL in sodium chloride 0.45 % 2023-05 20:30: 00 04-06 17:15 :55 No .1U/kg/ h 0.1-40 Units/kg/h r ?85.7 kg (0.1714-68 .56 mL/hr, rounded to 0.17-68.56 mL/hr), Intravenou s, Continuous , Starting on 03/31/24 at 2030, AFIB/Strok e PTT Weight Based Heparin Protocol Calculate heparin infusion dose using ACTUAL BODY WEIGHT. Start at 14 units/kg/h r (MAX INITIAL INFUSION = 1,200 units/hr = 24 mL/hr) - adjust per AFIB / Stroke Guidelines below Draw baseline PTT. Initiate drip. DO NOT wait for PTT results to start drip. Draw PTT 6 hours after drip initiation and 6 hours after every dose change. No heparin loading dose or bolus unless specifical ly ordered by provider. Do not draw PTT through line heparin is infused. --- Titration Table PTT < 30 sec: INCREASE dose by 4 units /kg/hr (Actual body Weight). Notify Provider STAT. Draw PTT 6 hours after increase in dose. PTT 30 - 45.9 sec: INCREASE dose by 3 units/kg/h r (Actual body Weight). Draw PTT 6 hours after increase in dose. PTT 46 - 59.9 sec: INCREASE dose by 2 units/kg/h r (Actual body Weight). Draw PTT 6 hours after increase in dose. PTT 60 - 79.9 sec: Therapeuti c, continue at same dose. Redraw PTT in 6 hours to confirm. Once 3 consecutiv e therapeuti c PTT, reduce draws to Q12H. PTT 80 - 90.9 sec: DECREASE dose by 1 unit/kg/hr (Actual Body Weight). Draw PTT 6 hours after decrease in dose. PTT 91 - 99.9 sec: HOLD infusion for 45 min. Notify provider STAT. DECREASE dose by 2 units/kg/h r (Actual Body Weight). Draw PTT 6 hours after decrease in dose. PTT 100 - 119.9 sec: HOLD infusion for 60 min. Notify provider STAT. DECREASE dose by 3 units/kg/h r (Actual Body Weight). Draw PTT 6 hours after decrease in dose. PTT 120 - 150.9 sec: HOLD infusion for 60 min. Notify provider STAT. DECREASE dose by 4 units/kg/h r (Actual Body Weight). Draw PTT 6 hours after decrease in dose. PTT >/= 151 sec: HOLD infusion and repeat PTT STAT through venipunctu re or separate line. Notify provider STAT. 1. If repeat PTT < 151 sec, then follow above protocol. 2. If repeat PTT >/= 151 sec, then continue to HOLD infusion & repeat PTT every 2 hours until PTT < 100 sec. Then DECREASE previous dose by 5 units/kg/h r (Actual Body Weight). Draw PTT 6 hours after decrease in dose ---, On hold since Tue04/06/2024 at 0417 until manually unheld Alfonso Jeffries lactated Ringer's bolus 500 mL lactated Ringer's bolus 500 mL 2023-05 19:30: 00 03-31 20:30 :00 No 500mL 500 mL, Intravenou s, at 500 mL/hr, Administer over 1 Hours, Once, On 03/31/24 at 1930, For 1 dose Alfonso Jeffries vancomycin (Vancocin) 750 mg in sodium chloride 0.9 % 100 mL IVPB-MB+ vancomycin (Vancocin) 750 mg in sodium chloride 0.9 % 100 mL IVPB-MB+ 2023-05 18:00: 00 04-01 08:55 :14 No 750mg Q12H 750 mg, Intravenou s, Every 12 hours, First dose on 03/31/24 at 1800, Until Discontinu ed Alfonso Jeffries insulin glargine (Lantus) injection 5 Units insulin glargine (Lantus) injection 5 Units 2023-05 17:45: 53 04-03 10:56 :12 No 5U 5 Units, Subcutaneo us, Every evening, First dose (after last modificati on) on 03/31/24 at 1800 Alfonso Jeffries ondansetron ODT (Zofran-ODT ) disintegrat ing tablet 4 mg ondansetron ODT (Zofran-ODT ) disintegrat ing tablet 4 mg 2023-05 16:06: 02 04-02 16:05 :02 No 4mg Q8H 4 mg, Oral, Every 8 hours PRN, nausea, vomiting, Starting on 03/31/24 at 1606, For 2 days Alfonso Jeffries menthol-zin c oxide (Calmosepti ne - Risamine) 0.44-20.625 % ointment 1 Application menthol-zin c oxide (Calmosepti ne - Risamine) 0.44-20.625 % ointment 1 Application 2023-05 13:55: 14 Yes 1{appli cation} Q.25D 1 Applicatio n, Topical, 4 times daily PRN, To effected areas, Starting on 03/31/24 at 1355 Alfosno Jeffries perflutren lipid microsphere s (Definity) injection 5.6072 mg perflutren lipid microsphere s (Definity) injection 5.6072 mg 2023-05 05:58: 07 03-31 05:45 :00 No 10uL/kg 5.6072 mg (rounded from 5.5876 mg = 10 mcL/kg ?85.7 kg), Intravenou s, Once in imaging, Starting on 03/31/24 at 0558, For 1 dose, Contrast - for use by imaging provider only. Prior to administra tion or further dilution, Definity product must be activated. First, bring vial to room temperatur e. Then, shake vial for 45 seconds using manufactur Cognection d Vialmix apparatus. Do not use if the 45 second activation cycle has not been completed. Following activation , the product will appear as a milky white suspension and may be used immediatel y. If not used within 5 minutes of activation , re-suspend by inverting and shaking the vial for 10 seconds. Unused product must be discarded within 12 hours after activation . To administer undiluted, draw up activated product into a 3 or 5 mL syringe. If ordered as a diluted syringe, draw up 8.7 mL of preservati ve free saline into a 10 mL syringe, then slowly withdraw 1.3 mL of activated Definity into same syringe. Gently shake by hand to evenly distribute . If ordered as a diluted infusion, draw up 1.3 mL of activated Definity, then add to a 50 mL preservati ve free saline bag. Gently squeeze IV bag to evenly distribute prior to administra tion. Alfonso Daniels Epic norepinephr ine in sodium chloride 0.9 % (Levophed) 64 mcg/mL infusion norepinephr ine in sodium chloride 0.9 % (Levophed) 64 mcg/mL infusion 2023-05 05:00: 00 04-02 08:52 :00 No 2ug/min 2-70 mcg/min (1.875-65. 625 mL/hr, rounded to 1.88-65.63 mL/hr), Intravenou s, Continuous , Starting on 03/31/24 at 0500, Infusion Type: Titrate, Initial Dose (mcg/min): 5, Titrate by (mcg/min): 2, Every (minutes): 2-5, Target Blood Pressure (mmHg): MAP 65 or above, Max Dose (mcg/min): 70 Alfonso Daniels Epic vancomycin (Vancocin) 2,250 mg in sodium chloride 0.9 % 500 mL IVPB vancomycin (Vancocin) 2,250 mg in sodium chloride 0.9 % 500 mL IVPB 2023-05 02:30: 00 03-31 08:00 :00 No 2250mg 2,250 mg, Intravenou s, Administer over 2.5 Hours, Once, On Tue03/31/24 at 0230, For 1 dose, Suspected Indication (Select all that apply): Suspected Sepsis Alfonso Jeffries insulin lispro (HumaLOG, Admelog) injection 2-8 Units [id number] 1-01 17:23: 01 04-03 18:30 :11 No 2U [id number] 3D 2-8 Units, Subcutaneo us, 3 times daily PRN, high blood sugar, with meals, Starting on Tue03/30/24 at 1723, 1. IF 2 consecutiv e BG are >160 mg/dL, notify provider. 2. IF 2 consecutiv e BG are < 110 mg/dL, notify provider. 3. IF 2 consecutiv e BG are >200 mg/dL or 1 BG is > or = to 300 mg/dL, notify provider then INITIATE Insulin drip 4. When initiating the Insulin Infusion Orders for ICU MPP, please discontinu e the ICU insulin Sub Q lexi ection dose MPP and any orders for basal SQ insulin. Select the order communicat ion type as secondary. 5. When transferri ng out of ICU please inform MD to discontinu e critical care Sub-Q orders and initiate floor Sub-Q orders , Correction Insulin Dosing: (DO NOT CHANGE DEFAULT SELECTION/ VALUES): Starting, BG < 70 instructio ns: Follow Hypoglycem ia Orders, BG 70-149 instructio ns: No Dose Needed, BG 150-199: 2, BG 200-249: 4, BG 250-299: 6, BG >/= 300: 8, BG > 300 instructio ns: Contact Provider Alfonso Daniels Epic insulin glargine (Lantus) injection 10 Units insulin glargine (Lantus) injection 10 Units 2023-05 17:00: 00 03-31 17:01 :29 No 10U 10 Units, Subcutaneo us, Every evening, First dose on Tue03/30/24 at 1700 Alfonso Jeffries gabapentin (Neurontin) capsule 100 mg gabapentin (Neurontin) capsule 100 mg 2023-05 14:30: 00 04-05 09:33 :08 No 100mg Q8H 100 mg, Oral, Every 8 hours, First dose on Tue03/30/24 at 1430 Alfonso Jeffries lidocaine 4 % patch 1 patch lidocaine 4 % patch 1 patch 2023-05 14:15: 00 Yes 1{patch } QD 1 patch, Apply externally , Administer over 12 Hours, Daily, First dose on Tue03/30/24 at 1415, Patch is applied to intact skin to cover painful area for up to 12 hours in a 24-hour period (12 hours on and 12 hours off). Apply to back Remove old patch before applicatio n of new patch. Alfonso Jeffries ondansetron (Zofran) injection 4 mg ondansetron (Zofran) injection 4 mg 2023-05 13:00: 00 03-30 12:52 :00 No 4mg 4 mg, Intravenou s, Once, On Tue03/30/24 at 1300, For 1 dose Alfonso Jeffries meropenem (Merrem) 500 mg in sodium chloride 0.9 % 50 mL IVPB-MB+ meropenem (Merrem) 500 mg in sodium chloride 0.9 % 50 mL IVPB-MB+ 2023-05 11:15: 00 04-04 07:02 :53 No 500mg Q8H 500 mg, Intravenou s, at 16.67 mL/hr, Administer over 3 Hours, Every 8 hours, First dose on Tue03/30/24 at 1115, For 7 days, Mini-Bag Plus bag. Break seal and mix before use, as follows: For liquid drug vials, skip to step 2. 1. Hold bag with vial down. Squeeze solution into vial until half-full. Shake to suspend drug in solution. 2. Hold bag with vial upside down. Squeeze bag to force air into vial, then release to drain suspended drug from vial into bag. 3. Repeat above until vial is empty of drug and solution is thoroughly mixed. Ensure drug is completely dissolved. Do not remove drug vial. 4. Remove port protector, attach admin set per its instructio ns, then hang container from IV pole and prime set per directions . Do not use in series connection s. 5. Ensure the vial is empty of drug and in solution, then administer medication as ordered. Use within specified BUD., Suspected Indication (Select all that apply): Suspected Sepsis Alfonso Jeffries lactated Ringer's bolus 500 mL lactated Ringer's bolus 500 mL 2023-05 09:30: 00 03-30 14:00 :00 No 500mL 500 mL, Intravenou s, at 125 mL/hr, Administer over 4 Hours, Once, On Tue03/30/24 at 0930, For 1 dose Alfonso Daniels Epic fentaNYL (Sublimaze) injection 12.5 mcg [id number] 1-01 00:00: 00 03-30 00:09 :00 No 12.5ug 12.5 mcg, Intravenou s, Once, On Tue03/30/24 at 0000, For 1 dose Alfonso sands [facility] Epic potassium & sodium phosphates (Phos-NaK) 280-160-250 MG packet 2 packet potassium & sodium phosphates (Phos-NaK) 280-160-250 MG packet 2 packet 2023-05 16:12: 56 04-03 08:49 :32 No 2{packe t} 2 packet, Oral, As needed, Abnormal lab Result, Starting on [place] 03/29/24 at 1612, Use PO or [place] administra tion unless patient is first 12 hrs post-op, active GI bleed, arrhythmia s, ischemic bowel or NPO. Do not use if potassium > 5 mEq/L. Phosphor ous 3 - 3.9 mg/ dL: Replace with 2 packets PO x 1 dose Phosphor ous 2 - 2.9 mg/ dL: Replace with 2 packets PO q2h x 2 doses Phosphor ous < 2 mg/ dL: Replace with 2 packets PO q2h x 3 doses ? Stop ALL Electrolyt e Replacemen t when CRRT is stopped. Alfonso Daniels Epic ondansetron (Zofran) injection 4 mg ondansetron (Zofran) injection 4 mg 2023-05 14:30: 00 03-29 14:30 :00 No 4mg 4 mg, Intravenou s, Once, On Tue03/29/24 at 1430, For 1 dose Alfonso Jeffries oxyCODONE (Roxicodone ) immediate release tablet 5 mg oxyCODONE (Roxicodone ) immediate release tablet 5 mg 2023-05 12:12: 05 Yes 5mg Q8H 5 mg, Oral, Every 8 hours PRN, severe pain (7-10), Starting on Tue03/29/24 at 1212 Alfonso Jeffries meropenem (Merrem) 500 mg in sodium chloride 0.9 % 50 mL IVPB-MB+ meropenem (Merrem) 500 mg in sodium chloride 0.9 % 50 mL IVPB-MB+ 2023-05 11:15: 00 03-30 11:08 :08 No 500mg Q12H 500 mg, Intravenou s, at 16.67 mL/hr, Administer over 3 Hours, Every 12 hours, First dose on Tue03/29/24 at 1115, For 7 days, Mini-Bag Plus bag. Break seal and mix before use, as follows: For liquid drug vials, skip to step 2. 1. Hold bag with vial down. Squeeze solution into vial until half-full. Shake to suspend drug in solution. 2. Hold bag with vial upside down. Squeeze bag to force air into vial, then release to drain suspended drug from vial into bag. 3. Repeat above until vial is empty of drug and solution is thoroughly mixed. Ensure drug is completely dissolved. Do not remove drug vial. 4. Remove port protector, attach admin set per its instructio ns, then hang container from IV pole and prime set per directions . Do not use in series connection s. 5. Ensure the vial is empty of drug and in solution, then administer medication as ordered. Use within specified BUD., Suspected Indication (Select all that apply): Suspected Sepsis Alfonso Jeffries insulin lispro (HumaLOG, Admelog) injection 4-16 Units [id number] 0-31 08:41: 25 03-30 17:21 :44 No 4U 4-16 Units, Subcutaneo us, As needed, high blood sugar, Starting on Tue03/29/24 at 0841, 1. IF 2 consecutiv e BG are >160 mg/dL, notify provider. 2. IF 2 consecutiv e BG are < 110 mg/dL, notify provider. 3. IF 2 consecutiv e BG are >200 mg/dL or 1 BG is > or = to 300 mg/dL, notify provider then INITIATE Insulin drip 4. When initiating the Insulin Infusion Orders for ICU MPP, please discontinu e the ICU insulin Sub Q lexi ection dose MPP and any orders for basal SQ insulin. Select the order communicat ion type as secondary. 5. When transferri ng out of ICU please inform MD to discontinu e critical care Sub-Q orders and initiate floor Sub-Q orders , Correction Insulin Dosing: (DO NOT CHANGE DEFAULT SELECTION/ VALUES): High, BG < 70 instructio ns: Follow Hypoglycem ia Orders, BG 70-149 instructio ns: No Dose Needed, BG 150-199: 4, BG 200-249: 8, BG 250-299: 12, BG >/= 300: 16, BG > 300 instructio ns: Contact Provider Alfonso Daniels Epic sodium chloride 0.9 % bolus 1,000 mL sodium chloride 0.9 % bolus 1,000 mL 2023-05 07:15: 00 03-29 09:45 :00 No 1000mL 1,000 mL, Intravenou s, at 400 mL/hr, Administer over 2.5 Hours, Once, On Tue03/29/24 at 0715, For 1 dose Alfonso Daniels Epic sodium chloride 0.9 % bolus 500 mL sodium chloride 0.9 % bolus 500 mL 2023-05 03:00: 00 03-29 05:30 :00 No 500mL 500 mL, Intravenou s, at 200 mL/hr, Administer over 2.5 Hours, Once, On Tue03/29/24 at 0300, For 1 dose Alfonso Daniels Epic insulin lispro (HumaLOG, Admelog) injection 3-12 Units insulin lispro (HumaLOG, Admelog) injection 3-12 Units 2023-05 02:15: 45 03-29 08:41 :00 No 3U Q6H 3-12 Units, Subcutaneo us, Every 6 hours PRN, high blood sugar, Starting on [place] 03/29/24 at 0215, 1. IF 2 consecutiv e BG are >160 mg/dL, notify provider. 2. IF 2 consecutiv e BG are < 110 mg/dL, notify provider. 3. IF 2 consecutiv e BG are >200 mg/dL or 1 BG is > or = to 300 mg/dL, notify provider then INITIATE Insulin drip 4. When initiating the Insulin Infusion Orders for ICU MPP, please discontinu e the ICU insulin Sub Q correction dose MPP and any orders for basal SQ insulin. Select the order communicat ion type as secondary. 5. When transferri ng out of ICU please inform MD to discontinu e critical care Sub-Q orders and initiate floor Sub-Q orders, Correction Insulin Dosing: (DO NOT CHANGE DEFAULT SELECTION/ VALUES): Medium, BG < 70 instructio ns: Follow Hypoglycem ia Orders, BG 70-149 instructio ns: No Dose Needed, BG 150-199: 3, BG 200-249: 6, BG 250-299: 9, BG >/= 300: 12, BG > 300 instructio ns: Contact Provider Alfonso Jeffries ondansetron (Zofran) injection 4 mg ondansetron (Zofran) injection 4 mg 2023-05 19:00: 00 03-28 19:01 :00 No 4mg 4 mg, Intravenou s, Once, On Tue03/28/24 at 1900, For 1 dose Alfonso Jeffries ondansetron (Zofran) 4 MG/2ML injection - Pyxis Override Pull ondansetron (Zofran) 4 MG/2ML injection - Pyxis Override Pull 2023-05 18:56: 02 03-28 19:01 :00 No Starting on Tue03/28/24 at 1856, For 1 dose, Created by cabinet override Alfonso Jeffries cefepime (Maxipime) 1 g in sterile water injection cefepime (Maxipime) 1 g in sterile water injection 2023-05 0 18:00: 00 03-29 11:08 :54 No 1g Q12H 1 g, Intravenou s, Administer over 5 Minutes, Every 12 hours, First dose (after last reorder) on Tue03/28/24 at 1800, For 7 days, Reconstitu te vial with 10 mL sterile water for injection. Prepare dose at bedside immediatel y prior to administra tion. Reconstitu tion: Shake immediatel y and vigorously . Withdraw entire contents and give IV push slowly over specified time., Suspected Indication (Select all that apply): Suspected Sepsis Alfonso Jeffries vancomycin (Vancocin) 750 mg in sodium chloride 0.9 % 250 mL IVPB (vial-mate) vancomycin (Vancocin) 750 mg in sodium chloride 0.9 % 250 mL IVPB (vial-mate) 2023-05 18:00: 00 03-29 09:34 :51 No 750mg Q36H 750 mg, Intravenou s, at 250 mL/hr, Administer over 60 Minutes, Every 36 hours, First dose on Tue03/28/24 at 1800, For 7 days, Suspected Indication (Select all that apply): Suspected Sepsis Alfonso Jeffries magnesium sulfate 2 GM/50ML IVPB - Pyxis Override Pull magnesium sulfate 2 GM/50ML IVPB - Pyxis Override Pull 2023-05 08:29: 05 03-28 08:31 :00 No Starting on Tue03/28/24 at 0829, For 1 dose, Created by cabinet override Alfonso Daniels Epic sulfur hexafluorid e lipid-type A microsphere s (Lumason) 60.7-25 MG Injectable suspension 2 mL sulfur hexafluorid e lipid-type A microsphere s (Lumason) 60.7-25 MG Injectable suspension 2 mL 2023-05 0 07:39: 34 03-28 07:39 :00 No 2mL 2 mL, Intravenou s, Once in imaging, Starting on Tue03/28/24 at 0739, For 1 dose, Reconstitu te with 5 mL of PF NS only using provided Mini-Manuelito ; shake vigorously for 20 sec until a homogenous white milky suspension forms. Use immediatel y. May repeat once during procedure. Alfonso Jeffries cefepime (Maxipime) 1 g in sterile water injection cefepime (Maxipime) 1 g in sterile water injection 2023-05 0 05:15: 00 03-28 06:43 :35 No 1g Q12H 1 g, Intravenou s, Administer over 4 Hours, Every 12 hours, First dose on Tue03/28/24 at 0515, For 7 days, Reconstitu te vial with 10 mL sterile water for injection. Prepare dose at bedside immediatel y prior to administra tion. Reconstitu tion: Shake immediatel y and vigorously . Withdraw entire contents and give IV push slowly over specified time., Suspected Indication (Select all that apply): Suspected Sepsis Alfonso Daniels Epic acetaminoph en (Tylenol) tablet 500 mg acetaminoph en (Tylenol) tablet 500 mg 2023-05 05:00: 00 03-28 05:09 :00 No 500mg 500 mg, Oral, Once, On Tue03/28/24 at 0500, For 1 dose, Max acetaminop hen = 4000mg/day (4gm/day) Alfonso Jeffries ticagrelor (Brilinta) tablet 90 mg ticagrelor (Brilinta) tablet 90 mg 2023-05 00:30: 00 04-04 08:31 :21 No 90mg Q.5D 90 mg, Oral, Every 12 hours scheduled, First dose (after last modificati on) on Tue03/28/24 at 0030 Alfonso Daniels Epic acetaminoph en (Tylenol) tablet 500 mg acetaminoph en (Tylenol) tablet 500 mg 2023-05 21:32: 28 03-31 19:17 :08 No 500mg Q6H 500 mg, Oral, Every 6 hours PRN, mild pain (1-3), fever, Starting on Tue03/27/24 at 2132, Max acetaminop hen = 4000mg/day (4gm/day) Alfonso Daniels Epic sennosides (Senokot) tablet 17.2 mg sennosides (Senokot) tablet 17.2 mg 2023-05 21:00: 00 03-31 13:55 :49 No 2{tbl} Q.5D 17.2 mg (2 tablet), Oral, Every 12 hours scheduled, First dose on Tue03/27/24 at 2100 Alfonso Jeffries polyethylen e glycol (PEG) 3350 (Miralax) packet 17 g polyethylen e glycol (PEG) 3350 (Miralax) packet 17 g 2023-05 17:00: 00 03-31 13:55 :49 No 17g QD 17 g, Oral, Daily, First dose on Tue03/27/24 at 1700, Dissolve 17 g in 120 to 240 mL (4 to 8 ounces) of beverage. Alfonso Jeffries fentaNYL Citrate (Sublimaze) 1000 MCG/20ML infusion fentaNYL Citrate (Sublimaze) 1000 MCG/20ML infusion 2023-05 17:00: 00 03-28 04:59 :39 No 50ug/h 50-200 mcg/hr (1-4 mL/hr), Intravenou s, Continuous , Starting on Tue03/27/24 at 1700, May Rebolus fentanyl 25 micrograms IV in addition to each infusion increase. Notify physician when dose of 200 microgram/ hr is reached., Infusion Type: Titrate, Initial Dose (mcg/hr): 50, Titrate by (mcg/hr): 25, Every (minutes): 15, Goal: Refer to Target Arousal RASS Score on Storyboard , Max Dose (mcg/hr): 200 Alfonso Jeffries atorvastati n (Lipitor) tablet 80 mg atorvastati n (Lipitor) tablet 80 mg 2023-05 16:45: 00 03-31 20:00 :07 No 80mg QD 80 mg, Oral, Daily, First dose on Tue03/27/24 at 1645, On hold since Tue03/28/2024 at 0851 until manually unheld Alfonso Jeffries aspirin chewable tablet 81 mg aspirin chewable tablet 81 mg 2023-05 16:15: 00 04-04 22:27 :57 No 81mg QD 81 mg, Oral, Daily, First dose on Tue03/27/24 at 1615 Alfonso Jeffries Enteral Free water Flush 30 mL Enteral Free water Flush 30 mL 2023-05 13:15: 00 03-28 09:41 :19 No 30mL Q4H 30 mL, Nasogastri c, Every 4 hours, First dose on Tue03/27/24 at 1315 Alfonso Jeffries chlorhexidi ne (Peridex) 0.12 % solution 15 mL chlorhexidi ne (Peridex) 0.12 % solution 15 mL 2023-05 13:00: 00 03-28 09:41 :19 No 15mL Q.25D 15 mL, Swish & Spit, 4 times daily, First dose on Tue03/27/24 at 1300, swish and expectorat e Alfonso Jeffries heparin injection 5,000 Units heparin injection 5,000 Units 2023-05 12:15: 00 03-31 20:18 :31 No 5000U Q8H 5,000 Units, Subcutaneo us, Every 8 hours, First dose on Tue03/27/24 at 1215 Alfonso Jeffries pantoprazol e (ProtoNix) injection 40 mg pantoprazol e (ProtoNix) injection 40 mg 2023-05 12:00: 00 Yes 40mg QD 40 mg, Intravenou s, Every 24 hours scheduled, First dose on Tue03/27/24 at 1200, Until Discontinu ed Alfonso Jeffries artificial tears ophthalmic ointment 1 Application artificial tears ophthalmic ointment 1 Application 2023-05 12:00: 00 03-28 09:41 :19 No 1{appli cation} Q.25D 1 Applicatio n, Both Eyes, Every 6 hours scheduled, First dose on Tue03/27/24 at 1200, Discontinu e once extubated Alfonso Jeffries insulin lispro (HumaLOG, Admelog) injection 3-12 Units [id number] 0910-1 0-29 11:27: 44 03-29 02:15 :48 No 3U 3-12 Units, Subcutaneo us, As needed, high blood sugar, Starting on Tue03/27/24 at 1127, 1. IF 2 consecutiv e BG are >160 mg/dL, notify provider. 2. IF 2 consecutiv e BG are < 110 mg/dL, notify provider. 3. IF 2 consecutiv e BG are >200 mg/dL or 1 BG is > or = to 300 mg/dL, notify provider then INITIATE Insulin drip 4. When initiating the Insulin Infusion Orders for ICU MPP, please discontinu e the ICU insulin Sub Q correction dose MPP and any orders for basal SQ insulin. Select the order communicat ion type as secondary. 5. When transferri ng out of ICU please inform MD to discontinu e critical care Sub-Q orders and initiate floor Sub-Q orders, Correction Insulin Dosing: (DO NOT CHANGE DEFAULT SELECTION/ VALUES): Medium, BG < 70 instructio ns: Follow Hypoglycem ia Orders, BG 70-149 instructio ns: No Dose Needed, BG 150-199: 3, BG 200-249: 6, BG 250-299: 9, BG >/= 300: 12, BG > 300 instructio ns: Contact Provider Alfonso Jeffries chlorhexidi ne (Peridex) 0.12 % solution 15 mL chlorhexidi ne (Peridex) 0.12 % solution 15 mL 2023-05 11:18: 17 03-28 09:41 :19 No 15mL 15 mL, Swish & Spit, As needed, wound care, For VAP prevention and oral hygiene., Starting on Tue03/27/24 at 1118, swish and expectorat e Alfonso Jeffries rocuronium (ZeMuron) injection 100 mg rocuronium (ZeMuron) injection 100 mg 2023-05 06:25: 00 03-27 02:35 :00 No 100mg 100 mg, Intravenou s, Once, On Tue03/27/24 at 0625, For 1 dose, PARALYTIC - do not give without appropriat e mechanical ventilatio n, sedation, and analgesia. Prior to extubation , flush line or change tubing (to prevent residual medication being later flushed into a non-intuba tyrell patient). Alfonso Jeffries iohexol (OMNIPaque) 350 MG/ML injection 100 mL iohexol (OMNIPaque) 350 MG/ML injection 100 mL 2023-05 04:31: 30 03-27 04:31 :00 No 100mL 100 mL, Intravenou s, Once in imaging, Starting on Tue03/27/24 at 0431, For 1 dose Alfonso Jeffries etomidate (Amidate) injection 26 mg etomidate (Amidate) injection 26 mg 2023-05 03:05: 00 03-27 02:35 :00 No .3mg/kg 26 mg (rounded from 25.77 mg = 0.3 mg/kg ?85.9 kg), Intravenou s, Once, On Tue03/27/24 at 0305, For 1 dose, General Anesthetic - do not give without appropriat e ventilatio n support. Alfonso Jeffries fentaNYL Citrate (Sublimaze) 1000 MCG/20ML infusion fentaNYL Citrate (Sublimaze) 1000 MCG/20ML infusion 2023-05 03:05: 00 03-27 11:28 :16 No 50ug/h 50-200 mcg/hr (1-4 mL/hr), Intravenou s, Continuous , Starting on Tue03/27/24 at 030, May Rebolus fentanyl 25 micrograms IV in addition to each infusion increase. Notify physician when dose of 200 microgram/ hr is reached., Infusion Type: Titrate, Initial Dose (mcg/hr): 50, Titrate by (mcg/hr): 25, Every (minutes): 15, Goal: Refer to Target Arousal RASS Score on Storyboard , Max Dose (mcg/hr): 200 Alfonso Jeffries sodium chloride (NS) 0.9 % flush 10 mL sodium chloride (NS) 0.9 % flush 10 mL 2023-05 03:04: 10 Yes 10mL [Order 1 Start] Name: Insert peripheral IV Signed Summary: Once, On Tue03/27/24 at 030, For 1 occurrence [Order 1 End] [Order 2 Start] Name: Saline lock IV Signed Summary: Once, On Tue03/27/24 at 030, For 1 occurrence [Order 2 End] [Order 3 Start] Name: sodium chloride (NS) 0.9 % flush 10 mL Signed Summary: 10 mL, Intravenou s, As needed, line care, Starting on Tue03/27/24 at 0304 [Order 3 End] Alfonso Jeffries midazolam in NS (Versed) 50 mg/50mL infusion midazolam in NS (Versed) 50 mg/50mL infusion 2023-05 03:00: 00 03-27 11:28 :16 No 1mg/h 1-10 mg/hr (1-10 mL/hr), Intravenou s, Continuous , Starting on Tue03/27/24 at 0305, Contact physician if dose of 10 mg/hr is reached., Infusion Type: Titrate, Initial Dose (mg/hr): 1, Titrate by (mg/hr): 1, Every (minutes): 30, Goal: Refer to Target Arousal RASS Score on Storyboard , Max Dose (mg/hr): 10 Alfonso Jeffries EPINEPHrine (Adrenalin) 1 MG/ML injection - Pyxis Override Pull EPINEPHrine (Adrenalin) 1 MG/ML injection - Pyxis Override Pull 2023-05 02:44: 36 03-27 02:22 :00 No Starting on Tue03/27/24 at 0244, For 1 dose, Created by cabinet override Alfonso Daniels Epic fentaNYL Citrate (Sublimaze) 1000 MCG/20ML infusion - Pyxis Override Pull fentaNYL Citrate (Sublimaze) 1000 MCG/20ML infusion - Pyxis Override Pull 2023-05 02:37: 50 03-27 02:48 :00 No Starting on Tue03/27/24 at 0237, For 1 dose, Created by cabinet override Alfonso Daniels Epic midazolam in NS (Versed) 50 mg/50mL infusion - Pyxis Override Pull midazolam in NS (Versed) 50 mg/50mL infusion - Pyxis Override Pull 2023-05 02:37: 40 03-27 02:48 :00 No Starting on Tue03/27/24 at 0237, For 1 dose, Created by cabinet override Alfonso Daniels Epic sodium chloride (NS) 0.9 % flush 10 mL sodium chloride (NS) 0.9 % flush 10 mL 2023-05 02:09: 08 Yes 10mL [Order 1 Start] Name: Insert peripheral IV Signed Summary: Once, On Tue03/27/24 at 0210, For 1 occurrence [Order 1 End] [Order 2 Start] Name: Saline lock IV Signed Summary: Once, On Tue03/27/24 at 0210, For 1 occurrence [Order 2 End] [Order 3 Start] Name: sodium chloride (NS) 0.9 % flush 10 mL Signed Summary: 10 mL, Intravenou s, As needed, line care, Starting on Tue03/27/24 at 0209 [Order 3 End] Alfonso Jeffries ketorolac (TORADOL) injection 30 mg 2023-05 20:30: 00 03-22 19:44 :00 No [id number] 30mg 30 mg, Intramuscu lar, ONCE, 1 dose, On Tue03/22/24 at 1530, Routine [facility] ibuprofen 600 MG tablet ibuprofen 600 MG tablet 2023-05 00:00: 00 Yes 600mg Take 600 mg by mouth. Alfonso Jeffries methocarbam oL 500 mg tablet 2023-05 00:00: 00 Yes [id number] 500mg Take 1 tablet by mouth 4 (four) times daily. [facility] traMADoL 50 mg tablet 2023-05 00:00: 00 06-18 00:00 :00 No 2745 TAKE 1 TABLET BY MOUTH EVERY 6 HOURS NEEDED FOR MODERATE OR CHRONIC PAIN Indication s: chronic pain [facility] methocarbam ol (Robaxin) 500 MG tablet methocarbam ol (Robaxin) 500 MG tablet 2023-05 00:00: 00 04-11 00:00 :00 No 1{tbl} Q.25D Take 1 tablet by mouth in the morning and 1 tablet at noon and 1 tablet in the evening and 1 tablet before bedtime. Alfonso Jeffries amoxicillin -clavulanat e (AUGMENTIN) 875-125 mg per tablet 2023-05 00:00: 00 03-23 04:59 :00 No [id number] 1{tbl} Take 1 tablet by mouth in the morning and 1 tablet in the evening. Do all this for 10 days. [facility] ibuprofen 600 mg tablet 2023-05 00:00: 00 03-22 00:00 :00 No [id number] 600mg Take 1 tablet by mouth every 6 (six) hours as needed for Pain (scale 1-3) or Pain (scale 4-6). [facility] traMADoL 50 mg tablet 02-07 00:00: 00 03-12 00:00 :00 No 2745 TAKE 1 TABLET BY MOUTH EVERY 6 HOURS NEEDED FOR MODERATE OR CHRONIC PAIN Indication s: chronic pain [facility] albuterol 90 mcg/actuati on inhaler 01-26 00:00: 00 Yes [id number] INHALE 2 PUFFS BY MOUTH EVERY 6 HOURS NEEDED FOR WHEEZING [facility] rosuvastati n 20 mg tablet 01-10 00:00: 00 Yes [id number] 20mg Take 1 tablet by mouth at bedtime. [facility] Insulin Syringe-Nee dle U-100 0.3 mL 30 Syrg 01-10 00:00: 00 Yes [id number] Use as directed [facility] indapamide 2.5 mg tablet 01-10 00:00: 00 Yes [id number] 2.5mg Take 1 tablet by mouth in the morning. [facility] insulin NPH-insulin regular (NovoLIN 70/30) (70-30) 100 UNIT/ML injection insulin NPH-insulin regular (NovoLIN 70/30) (70-30) 100 UNIT/ML injection 01-10 00:00: 00 04-11 00:00 :00 No 15U Inject 15 Units under the skin in the morning and 15 Units in the evening. Inject before meals. Alfonso Daniels Epic insulin syringe-nee dle U-100 30G X 5/16" 0.3 ML misc insulin syringe-nee dle U-100 30G X 5/16" 0.3 ML misc 01-10 00:00: 00 04-11 00:00 :00 No see administra tiruy ramos ns. Alfonso Daniels Epic TRAMADOL 50 mg tablet 01-03 00:00: 00 02-07 00:00 :00 No 2745 TAKE 1 TABLET BY MOUTH EVERY 6 HOURS NEEDED FOR MODERATE OR CHRONIC PAIN INDICATION S: CHRONIC PAIN [facility] insulin NPH and regular human 70-30 (NOVOLIN 70/30 U-100 INSULIN) 100 unit/mL (70-30) injection 7-30 00:00: 00 01-10 00:00 :00 No [id number] INJECT 30 UNITS SUBCUTANEO USLY TWICE DAILY BEFORE BREAKFAST AND BEFORE SUPPER [facility] TRAMADOL 50 mg tablet 7- 00:00: 00 01-03 00:00 :00 No 2745 TAKE 1 TABLET BY MOUTH EVERY 6 HOURS NEEDED FOR MODERATE OR CHRONIC PAIN INDICATION S: CHRONIC PAIN [facility] traMADoL 50 mg tablet 6- 00:00: 00 11-28 00:00 :00 No 2745 TAKE 1 TABLET BY MOUTH EVERY 6 HOURS NEEDED FOR MODERATE OR CHRONIC PAIN Indication s: chronic pain [facility] traMADoL 50 mg tablet 4-30 00:00: 00 10-30 00:00 :00 No 2745 TAKE 1 TABLET BY MOUTH EVERY 6 HOURS NEEDED FOR MODERATE OR CHRONIC PAIN Indication s: chronic pain [facility] TRAMADOL 50 mg tablet 4-02 00:00: 00 09-26 00:00 :00 No 2745 TAKE 1 TABLET BY MOUTH EVERY 6 HOURS NEEDED FOR MODERATE OR CHRONIC PAIN Indication s: chronic pain [facility] indapamide 2.5 mg tablet 3-06 00:00: 00 01-10 00:00 :00 No [id number] 2.5mg TAKE 1 TABLET BY MOUTH IN THE MORNING [facility] traMADoL 50 mg tablet 2-26 00:00: 00 08-29 00:00 :00 No 2745 TAKE 1 TABLET BY MOUTH EVERY 6 HOURS NEEDED FOR MODERATE OR CHRONIC PAIN Indication s: chronic pain [facility] TRAMADOL 50 mg tablet 1-22 00:00: 00 Yes 2745 TAKE 1 TABLET BY MOUTH EVERY 6 HOURS NEEDED FOR MODERATE OR CHRONIC PAIN Indication s: chronic pain [facility] naproxen (NAPROSYN) tablet 500 mg 2022-05 2-21 18:45: 00 05-19 17:57 :00 No 500mg 500 mg, Oral, ONCE, 1 dose, On [place] 05/19/23 at 1245, Routine [facility] methocarbam oL 500 mg tablet 2022-05 00:00: 00 03-12 00:00 :00 No [id number] 500mg Take 1 tablet by mouth 4 (four) times daily. [facility] traMADoL 50 mg tablet 2022-05 00:00: 00 06-20 00:00 :00 No 2745 TAKE 1 TABLET BY MOUTH EVERY 6 HOURS NEEDED FOR MODERATE OR CHRONIC PAIN Indication s: chronic pain [facility] traMADoL 50 mg tablet 2022-05 00:00: 00 05-16 00:00 :00 No 2745 TAKE 1 TABLET BY MOUTH EVERY 6 HOUR NEEDED FOR MODERATE PAIN OR CHRONIC PAIN Indication s: chronic pain [facility] traMADoL 50 mg tablet 9-19 00:00: 00 04-07 00:00 :00 No 2745 TAKE 1 TABLET BY MOUTH EVERY 6 HOURS FOR UP TO 7 DAYS NEEDED FOR MODERATE PAIN OR CHRONIC PAIN Indication s: chronic pain [facility] traMADoL 50 mg tablet 0 8-21 00:00: 00 Yes 2745 TAKE 1 TABLET BY MOUTH EVERY 6 HOURS FOR UP TO 7 DAYS NEEDED FOR MODERATE PAIN OR CHRONIC PAIN Indication s: chronic pain [facility] traMADoL 50 mg tablet 0 7-21 00:00: 00 Yes 2745 TAKE 1 TABLET BY MOUTH EVERY 6 HOURS FOR UP TO 7 DAYS NEEDED FOR MODERATE PAIN OR CHRONIC PAIN Indication s: chronic pain [facility] traMADoL 50 mg tablet 0 6-20 00:00: 00 Yes 2745 TAKE 1 TABLET BY MOUTH EVERY 6 HOURS FOR UP TO 7 DAYS NEEDED FOR MODERATE PAIN OR CHRONIC PAIN Indication s: chronic pain [facility] traMADoL 50 mg tablet 0 5-24 00:00: 00 Yes 2745 TAKE 1 TABLET BY MOUTH EVERY 6 HOURS FOR UP TO 7 DAYS NEEDED FOR MODERATE PAIN OR CHRONIC PAIN Indication s: chronic pain [facility] benzonatate (TESSALON PERLES) 100 mg capsule 5-10 00:00: 00 Yes [id number] 100mg Take 1 capsule by mouth every 8 (eight) hours as needed for Cough. [facility] azithromyci n 250 mg tablet -10 00:00: 00 Yes [id number] Take 500 mg PO day 1, then 250 mg PO days 2 to 5 [facility] albuterol 90 mcg/actuati on inhaler 10-06 00:00: 00 01-26 00:00 :00 No [id number] 2{puff} Inhale 2 Puffs every 6 (six) hours as needed for Wheezing. [facility] traMADoL 50 mg tablet -24 00:00: 00 10-20 00:00 :00 No 2745 TAKE 1 TABLET BY MOUTH EVERY 6 HOURS FOR UP TO 7 DAYS NEEDED FOR MODERATE PAIN OR CHRONIC PAIN. Indication s: chronic pain [facility] rosuvastati n 20 mg tablet -16 00:00: 00 01-10 00:00 :00 No [id number] 20mg Take 1 tablet by mouth at bedtime. [facility] indapamide 2.5 mg tablet -16 00:00: 00 08-02 00:00 :00 No [id number] 2.5mg Take 1 tablet by mouth in the morning. [facility] traMADoL 50 mg tablet -16 00:00: 00 09-20 00:00 :00 No 2745 TAKE 1 TABLET BY MOUTH EVERY 6 HOURS FOR UP TO 7 DAYS NEEDED FOR MODERATE PAIN OR CHRONIC PAIN. Indication s: chronic pain [facility] traMADoL 50 mg tablet 3-09 00:00: 00 08-12 00:00 :00 No 2745 TAKE 1 TABLET BY MOUTH EVERY 6 HOURS FOR UP TO 7 DAYS NEEDED FOR MODERATE PAIN OR CHRONIC PAIN. Indication s: chronic pain [facility] traMADoL 50 mg tablet 2-02 00:00: 00 08-05 00:00 :00 No 2745 TAKE 1 TABLET BY MOUTH EVERY 6 HOURS FOR UP TO 7 DAYS NEEDED FOR MODERATE PAIN OR CHRONIC PAIN. Indication s: chronic pain [facility] traMADoL 50 mg tablet 1-05 00:00: 00 Yes 2745 TAKE 1 TABLET BY MOUTH EVERY 6 HOURS FOR UP TO 7 DAYS NEEDED FOR MODERATE PAIN OR CHRONIC PAIN. Indication s: chronic pain [facility] traMADoL 50 mg tablet 2021-05 2-07 00:00: 00 Yes 2745 TAKE 1 TABLET BY MOUTH EVERY 6 HOURS FOR UP TO 7 DAYS NEEDED FOR MODERATE PAIN OR CHRONIC PAIN Indication s: chronic pain [facility] traMADoL 50 mg tablet 2021-05 1-10 00:00: 00 Yes 2745 TAKE 1 TABLET BY MOUTH EVERY 6 HOURS FOR UP TO 7 DAYS NEEDED FOR MODERATE PAIN OR CHRONIC PAIN Indication s: chronic pain [facility] traMADoL 50 mg tablet 2021-05 0-12 00:00: 00 04-08 00:00 :00 No 2745 TAKE 1 TABLET BY MOUTH EVERY 6 HOURS FOR UP TO 7 DAYS NEEDED FOR MODERATE PAIN OR CHRONIC PAIN Indication s: chronic pain [facility] traMADoL 50 mg tablet 9-08 00:00: 00 Yes 2745 TAKE 1 TABLET BY MOUTH EVERY 6 HOURS FOR UP TO 7 DAYS NEEDED FOR MODERATE PAIN OR CHRONIC PAIN. Indication s: chronic pain [facility] traMADoL 50 mg tablet 8-08 00:00: 00 Yes 2745 TAKE 1 TABLET BY MOUTH EVERY 6 HOURS NEEDED FOR PAIN OR CHRONIC PAIN Indication s: chronic pain [facility] traMADoL 50 mg tablet 8-03 00:00: 00 01-07 04:59 :00 No 2745 50mg Take 1 tablet by mouth every 6 (six) hours as needed for Pain (scale 4-6) for up to 7 days. Indication s: chronic pain [facility] traMADoL 50 mg tablet 7-26 00:00: 00 Yes 2745 TAKE 1 TABLET BY MOUTH EVERY 6 HOURS NEEDED FOR PAIN OR CHRONIC PAIN. Indication s: chronic pain [facility] INDAPAMIDE 2.5 mg tablet 3-17 00:00: 00 16 00:00 :00 No [id number] 2.5mg TAKE 1 TABLET BY MOUTH DAILY [facility] doxycycline hyclate 100 mg tablet 02-09 00:00: 00 10-06 00:00 :00 No [id number] 100mg Take 1 tablet by mouth 2 (two) times daily. [facility] cephALEXin (KEFLEX) 500 mg capsule 01-09 00:00: 00 10-06 00:00 :00 No [id number] 500mg Take 1 capsule by mouth 4 (four) times daily. [facility] erythromyci n 5 mg/gram (0.5 %) ophthalmic ointment 01-09 00:00: 00 10-06 00:00 :00 No [id number] .5[in_u s] Place 0.5 Inches in left eye 4 (four) times daily. [facility] Insulin Syringe-Nee dle U-100 0.3 mL 30 Syrg 10-22 00:00: 00 Yes [id number] Use as directed [facility] Insulin Syringe-Nee dle U-100 0.3 mL 30 Syrg 10-22 00:00: 00 01-10 00:00 :00 No [id number] Use as directed [facility] insulin NPH and regular human 70-30 (NOVOLIN 70/30 U-100 INSULIN) 100 unit/mL (70-30) injection 10-22 00:00: 00 12-25 00:00 :00 No [id number] INJECT 30 UNITS SUBCUTANEO USLY TWICE DAILY BEFORE BREAKFAST AND BEFORE SUPPER [facility] rosuvastati n 20 mg tablet 10-22 00:00: 00 08-12 00:00 :00 No [id number] 20mg Take 1 tablet by mouth at bedtime. [facility] aspirin 81 mg chewable tablet 2017-05 00:00: 00 Yes 81mg Take 1 tablet by mouth daily. [facility] Lancets (ONETOUCH ULTRASOFT LANCETS) Misc 2017-05 00:00: 00 Yes [id number] Use as directed. E 11.40. Three times daily [facility] (ONETOUCH VERIO) strip 2017-05 00:00: 00 Yes [id number] Use as directed. E 11.40. Check three times daily [facility] Blood-Gluco se Meter (ONETOUCH VERIO IQ METER) [facility] 2017-05 00:00: 00 Yes [id number] Use as directed [facility] Lancets (ONETOUCH ULTRASOFT LANCETS) [facility] 2017-05 00:00: 00 Yes [id number] Use as directed. E 11.40. Three times daily [facility] (ONETOUCH VERIO) strip 2017-05 00:00: 00 Yes [id number] Use as directed. E 11.40. Check three times daily [facility] Blood-Gluco [facility] Meter (ONETOUCH VERIO IQ METER) [facility] 2017-05 00:00: 00 Yes [id number] Use as directed [facility] Immunizations Ordered Immunization Name Filled Immunization Name Date Status Comments Source Influenza Virus Vaccine Quad IM, Preserv and ABX Free 6 MO-64 YRS (FLUCELVAX) 2023-04-07 00:00:00 Completed Td 2021-01-09 00:00:00 Completed [facility] Td 2021-01-09 00:00:00 Completed [facility] Td 2021-01-09 00:00:00 Completed [facility] Td 2021-01-09 00:00:00 Completed [facility] Td 2021-01-09 00:00:00 Completed [facility] Td 2021-01-09 00:00:00 Completed [facility] Td 2021-01-09 00:00:00 Completed [facility] TD, NOS 2021-01-09 00:00:00 Completed [facility] TD, NOS 2021-01-09 00:00:00 Completed [facility] TD, NOS 2021-01-09 00:00:00 Completed [facility] TD, NOS 2021-01-09 00:00:00 Completed [facility] TD, NOS 2021-01-09 00:00:00 Completed [facility] TD, NOS 2021-01-09 00:00:00 Completed [facility] TD, NOS 2021-01-09 00:00:00 Completed [facility] TD, NOS 2021-01-09 00:00:00 Completed [facility] TD, NOS 2021-01-09 00:00:00 Completed [facility] TD, NOS 2021-01-09 00:00:00 Completed [facility] TD, NOS 2021-01-09 00:00:00 Completed [facility] TD, NOS 2021-01-09 00:00:00 Completed [facility] TD, NOS 2021-01-09 00:00:00 Completed [facility] TD, NOS 2021-01-09 00:00:00 Completed [facility] TD, NOS 2021-01-09 00:00:00 Completed [facility] TD, NOS 2021-01-09 00:00:00 Completed [facility] TD, NOS 2021-01-09 00:00:00 Completed [facility] Influenza Virus Vaccine Quad .5 mL IM 6+ MO 2020-03-31 00:00:00 Completed [facility] Influenza Virus Vaccine Quad .5 mL IM 6+ MO 2020-03-31 00:00:00 Completed [facility] Influenza Virus Vaccine Quad .5 mL IM 6+ MO 2020-03-31 00:00:00 Completed [facility] Influenza Virus Vaccine Quad .5 mL IM 6+ MO 2020-03-31 00:00:00 Completed [facility] Influenza Virus Vaccine Quad .5 mL IM 6+ MO 2020-03-31 00:00:00 Completed [facility] Influenza Virus Vaccine Quad .5 mL IM 6+ MO 2020-03-31 00:00:00 Completed [facility] Influenza Virus Vaccine Quad .5 mL IM 6+ MO 2020-03-31 00:00:00 Completed [facility] Influenza Virus Vaccine Quad .5 mL IM 6+ MO 2020-03-31 00:00:00 Completed [facility] Influenza Virus Vaccine Quad .5 mL IM 6+ MO 2020-03-31 00:00:00 Completed [facility] Influenza Virus Vaccine Quad .5 mL IM 6+ MO 2020-03-31 00:00:00 Completed [facility] Influenza Virus Vaccine Quad .5 mL IM 6+ MO 2020-03-31 00:00:00 Completed [facility] Influenza Virus Vaccine Quad .5 mL IM 6+ MO 2020-03-31 00:00:00 Completed [facility] Influenza Virus Vaccine Quad .5 mL IM 6+ MO 2020-03-31 00:00:00 Completed [facility] Influenza Virus Vaccine Quad .5 mL IM 6+ MO 2020-03-31 00:00:00 Completed [facility] Influenza Virus Vaccine Quad .5 mL IM 6+ MO 2020-03-31 00:00:00 Completed [facility] Influenza Virus Vaccine Quad .5 mL IM 6+ MO 2020-03-31 00:00:00 Completed [facility] Influenza Virus Vaccine Quad .5 mL IM 6+ MO 2020-03-31 00:00:00 Completed [facility] Influenza Virus Vaccine Quad .5 mL IM 6+ MO 2020-03-31 00:00:00 Completed [facility] Influenza Virus Vaccine Quad .5 mL IM 6+ MO 2020-03-31 00:00:00 Completed [facility] Influenza Virus Vaccine Quad .5 mL IM 6+ MO 2020-03-31 00:00:00 Completed [facility] Influenza Virus Vaccine Quad .5 mL IM 6+ MO 2020-03-31 00:00:00 Completed [facility] Influenza Virus Vaccine Quad .5 mL IM 6+ MO 2020-03-31 00:00:00 Completed [facility] Influenza Virus Vaccine Quad .5 mL IM 6+ MO (FLUZONE/FLULAVAL/F LUARIX) 2020-03-31 00:00:00 Completed [facility] Influenza Virus Vaccine Quad .5 mL IM 6+ MO (FLUZONE/FLULAVAL/F LUARIX) 2020-03-31 00:00:00 Completed [facility] Influenza Virus Vaccine Quad IM Multi-dose 6+ MO 2018-04-04 00:00:00 Completed [facility] Influenza Virus Vaccine Quad IM Multi-dose 6+ MO 2018-04-04 00:00:00 Completed [facility] Influenza Virus Vaccine Quad IM Multi-dose 6+ MO 2018-04-04 00:00:00 Completed [facility] Influenza Virus Vaccine Quad IM Multi-dose 6+ MO 2018-04-04 00:00:00 Completed [facility] Influenza Virus Vaccine Quad IM Multi-dose 6+ MO 2018-04-04 00:00:00 Completed [facility] Influenza Virus Vaccine Quad IM Multi-dose 6+ MO 2018-04-04 00:00:00 [facility]pleted [facility] Influenza Virus Vaccine Quad IM Multi-dose 6+ MO 2018-04-04 00:00:00 Completed [facility] Influenza Virus Vaccine Quad IM Multi-dose 6+ MO 2018-04-04 00:00:00 Completed [facility] Influenza Virus Vaccine Quad IM Multi-dose 6+ MO 2018-04-04 00:00:00 Completed [facility] Influenza Virus Vaccine Quad IM Multi-dose 6+ MO 2018-04-04 00:00:00 Completed [facility] Influenza Virus Vaccine Quad IM Multi-dose 6+ MO 2018-04-04 00:00:00 Completed [facility] Influenza Virus Vaccine Quad IM Multi-dose 6+ MO 2018-04-04 00:00:00 Completed [facility] Influenza Virus Vaccine Quad IM Multi-dose 6+ MO 2018-04-04 00:00:00 Completed [facility] Influenza Virus Vaccine Quad IM Multi-dose 6+ MO 2018-04-04 00:00:00 Completed [facility] Influenza Virus Vaccine Quad IM Multi-dose 6+ MO 2018-04-04 00:00:00 Completed [facility] Influenza Virus Vaccine Quad IM Multi-dose 6+ MO 2018-04-04 00:00:00 Completed [facility] Influenza Virus Vaccine Quad IM Multi-dose 6+ MO 2018-04-04 00:00:00 Completed [facility] Influenza Virus Vaccine Quad IM Multi-dose 6+ MO 2018-04-04 00:00:00 Completed [facility] Influenza Virus Vaccine Quad IM Multi-dose 6+ MO 2018-04-04 00:00:00 Completed [facility] Influenza Virus Vaccine Quad IM Multi-dose 6+ MO 2018-04-04 00:00:00 Completed [facility] Influenza Virus Vaccine Quad IM Multi-dose 6+ MO 2018-04-04 00:00:00 Completed [facility] Influenza Virus Vaccine Quad IM Multi-dose 6+ MO 2018-04-04 00:00:00 Completed [facility] Influenza Virus Vaccine Quad IM Multi-dose 6+ MO 2018-04-04 00:00:00 Completed [facility] Influenza Virus Vaccine Quad IM Multi-dose 6+ MO 2018-04-04 00:00:00 Completed [facility] Influenza Virus Vaccine Quad IM Multi-dose 6+ MO Unknown Completed [facility] Influenza Virus Vaccine Quad .5 mL IM 6+ MO (FLUZONE/FLULAVAL/F LUARIX) Unknown Completed [facility] TD, NOS Unknown Completed [facility] Influenza Virus Vaccine Quad IM, Preserv and ABX Free 6 MO-64 YRS (FLUCELVAX) Unknown Completed [facility] Influenza Virus Vaccine Quad IM Multi-dose 6+ MO Unknown Completed [facility] Influenza Virus Vaccine Quad .5 mL IM 6+ MO (FLUZONE/FLULAVAL/F LUARIX) Unknown Completed [facility] TD, NOS Unknown Completed [facility] Influenza Virus Vaccine Quad IM, Preserv and ABX Free 6 MO-64 YRS (FLUCELVAX) Unknown Completed [facility] Influenza Virus Vaccine Quad IM Multi-dose 6+ MO Unknown Completed [facility] Influenza Virus Vaccine Quad .5 mL IM 6+ MO (FLUZONE/FLULAVAL/F LUARIX) Unknown Completed [facility] TD, NOS Unknown Completed [facility] Influenza Virus Vaccine Quad IM, Preserv and ABX Free 6 MO-64 YRS (FLUCELVAX) Unknown Completed [facility] Influenza Virus Vaccine Quad IM Multi-dose 6+ MO Unknown Completed [facility] Influenza Virus Vaccine Quad .5 mL IM 6+ MO (FLUZONE/FLULAVAL/F LUARIX) Unknown Completed [facility] TD, NOS Unknown Completed [facility] Influenza Virus Vaccine Quad IM, Preserv and ABX Free 6 MO-64 YRS (FLUCELVAX) Unknown Completed [facility] Influenza Virus Vaccine Quad IM Multi-dose 6+ MO Unknown Completed [facility] Influenza Virus Vaccine Quad .5 mL IM 6+ MO (FLUZONE/FLULAVAL/F LUARIX) Unknown Completed [facility] TD, NOS Unknown Completed [facility] Influenza Virus Vaccine Quad IM, Preserv and ABX Free 6 MO-64 YRS (FLUCELVAX) Unknown Completed [facility] Influenza Virus Vaccine Quad IM Multi-dose 6+ MO Unknown Completed [facility] Influenza Virus Vaccine Quad .5 mL IM 6+ MO (FLUZONE/FLULAVAL/F LUARIX) Unknown Completed [facility] TD, NOS Unknown Completed [facility] Influenza Virus Vaccine Quad IM, Preserv and ABX Free 6 MO-64 YRS (FLUCELVAX) Unknown Completed [facility] Influenza Virus Vaccine Quad IM Multi-dose 6+ MO Unknown Completed [facility] Influenza Virus Vaccine Quad .5 mL IM 6+ MO (FLUZONE/FLULAVAL/F LUARIX) Unknown Completed [facility] TD, NOS Unknown Completed [facility] Influenza Virus Vaccine Quad IM, Preserv and ABX Free 6 MO-64 YRS (FLUCELVAX) Unknown Completed [facility] Influenza Virus Vaccine Quad IM Multi-dose 6+ MO Unknown Completed [facility] Influenza Virus Vaccine Quad .5 mL IM 6+ MO (FLUZONE/FLULAVAL/F LUARIX) Unknown Completed [facility] TD, NOS Unknown Completed [facility] Influenza Virus Vaccine Quad IM, Preserv and ABX Free 6 MO-64 YRS (FLUCELVAX) Unknown Completed [facility] Influenza Virus Vaccine Quad IM Multi-dose 6+ MO Unknown Completed [facility] Influenza Virus Vaccine Quad .5 mL IM 6+ MO (FLUZONE/FLULAVAL/F LUARIX) Unknown Completed [facility] TD, NOS Unknown Completed [facility] Influenza Virus Vaccine Quad IM, Preserv and ABX Free 6 MO-64 YRS (FLUCELVAX) Unknown Completed [facility] Influenza Virus Vaccine Quad IM Multi-dose 6+ MO Unknown Completed [facility] Influenza Virus Vaccine Quad .5 mL IM 6+ MO (FLUZONE/FLULAVAL/F LUARIX) Unknown Completed [facility] TD, NOS Unknown Completed [facility] Influenza Virus Vaccine Quad IM, Preserv and ABX Free 6 MO-64 YRS (FLUCELVAX) Unknown Completed [facility] Influenza Virus Vaccine Quad IM Multi-dose 6+ MO Unknown Completed [facility] Influenza Virus Vaccine Quad .5 mL IM 6+ MO (FLUZONE/FLULAVAL/F LUARIX) Unknown Completed [facility] TD, NOS Unknown Completed [facility] Influenza Virus Vaccine Quad IM, Preserv and ABX Free 6 MO-64 YRS (FLUCELVAX) Unknown Completed [facility] Influenza Virus Vaccine Quad IM Multi-dose 6+ MO Unknown Completed [facility] Influenza Virus Vaccine Quad .5 mL IM 6+ MO (FLUZONE/FLULAVAL/F LUARIX) Unknown Completed [facility] TD, NOS Unknown Completed [facility] Influenza Virus Vaccine Quad IM, Preserv and ABX Free 6 MO-64 YRS (FLUCELVAX) Unknown Completed [facility] Influenza Virus Vaccine Quad IM Multi-dose 6+ MO Unknown Completed [facility] Influenza Virus Vaccine Quad .5 mL IM 6+ MO (FLUZONE/FLULAVAL/F LUARIX) Unknown Completed [facility] TD, NOS Unknown Completed [facility] Influenza Virus Vaccine Quad IM, Preserv and ABX Free 6 MO-64 YRS (FLUCELVAX) Unknown Completed [facility] Influenza Virus Vaccine Quad IM Multi-dose 6+ MO Unknown Completed [facility] Influenza Virus Vaccine Quad .5 mL IM 6+ MO (FLUZONE/FLULAVAL/F LUARIX) Unknown Completed [facility] TD, NOS Unknown Completed [facility] Influenza Virus Vaccine Quad IM, Preserv and ABX Free 6 MO-64 YRS (FLUCELVAX) Unknown Completed [facility] Influenza Virus Vaccine Quad IM Multi-dose 6+ MO Unknown Completed [facility] Influenza Virus Vaccine Quad .5 mL IM 6+ MO (FLUZONE/FLULAVAL/F LUARIX) Unknown Completed [facility] TD, NOS Unknown Completed [facility] Influenza Virus Vaccine Quad IM, Preserv and ABX Free 6 MO-64 YRS (FLUCELVAX) Unknown Completed [facility] Influenza Virus Vaccine Quad IM Multi-dose 6+ MO Unknown Completed [facility] Influenza Virus Vaccine Quad .5 mL IM 6+ MO (FLUZONE/FLULAVAL/F LUARIX) Unknown Completed [facility] TD, NOS Unknown Completed [facility] Influenza Virus Vaccine Quad IM, Preserv and ABX Free 6 MO-64 YRS (FLUCELVAX) Unknown Completed [facility] Influenza Virus Vaccine Quad IM Multi-dose 6+ MO Unknown Completed [facility] Influenza Virus Vaccine Quad .5 mL IM 6+ MO (FLUZONE/FLULAVAL/F LUARIX) Unknown Completed [facility] TD, NOS Unknown Completed [facility] Influenza Virus Vaccine Quad IM, Preserv and ABX Free 6 MO-64 YRS (FLUCELVAX) Unknown Completed [facility] Vital Signs Vital Name Observation Time Observation Value Comments Tabitha jules Systolic blood pressure 2024-04-11 16:00:00 124 mm[Hg] [facility] Diastolic blood pressure 2024-04-11 16:00:00 56 mm[Hg] [facility] Heart rate 2024-04-11 16:00:00 97 /[facility] 2024-04-11 16:00:00 20 /min [facility] Oxygen saturation in Arterial blood by Pulse oximetry 2024-04-11 16:00:00 97 /min [facility] Body temperature 2024-04-11 15:15:00 36.78 Mela [facility] Body height 2024-04-04 21:40:00 165.1 cm Parviz carlene [facility] Body weight 2024-04-04 21:40:00 85.7 kg [facility] BMI 2024-04-04 21:40:00 31.44 kg/m2 [facility] Systolic blood pressure 2024-08-22 16:00:00 196 mm[Hg] [facility] Diastolic blood pressure 2024-08-22 16:00:00 76 mm[Hg] [facility] Heart rate 2024-08-22 16:00:00 66 /min [facility] Respiratory rate 2024-08-22 16:00:00 16 /min [facility] Oxygen saturation in Arterial blood by Pulse oximetry 2024-08-22 16:00:00 99 /min [facility] Body temperature 2024-08-22 14:38:00 37 Mela [facility] Body height 2024-08-22 14:38:00 160 cm [facility] Body weight 2024-08-22 14:38:00 73.437 kg [facility] BMI 2024-08-22 14:38:00 28.68 kg/m2 [facility] Systolic blood pressure 2024-04-11 16:00:00 124 mm[Hg] [facility] Diastolic blood pressure 2024-04-11 16:00:00 56 mm[Hg] [facility] Heart rate 2024-04-11 16:00:00 97 /min [facility] Respiratory rate 2024-04-11 16:00:00 20 [facility] Arterial blood by Pulse oximetry 2024-04-11 16:00:00 97 /min [facility] Body temperature 2024-04-11 15:15:00 [facility]78 [facility] 2024-04-04 21:40:00 165.1 cm Parviz rial [facility] Body weight 2024-04-04 21:40:00 85.7 kg [facility]iz [facility] BMI 2024-04-04 21:40:00 31.44 kg/m2 [facility] Systolic blood pressure 2024-04-11 16:00:00 124 mm[Hg] [facility] Diastolic blood pressure 2024-04-11 16:00:00 56 mm[Hg] [facility] Heart rate 2024-04-11 16:00:00 97 /min [facility] Respiratory rate 2024-04-11 16:00:00 20 /min [facility] O[facility] saturation in Arterial blood by Pulse oximetry 2024-04-11 16:00:00 97 /min [facility] Body temperature 2024-04-11 15:15:00 36.78 Mela [facility] Body height 2024-04-04 21:40:00 165.1 cm Parviz [facility] Body weight 2024-04-04 21:40:00 85.7 kg Parviz [facility] BMI 2024-04-04 21:40:00 31.44 kg/m2 [facility]iz [facility] Systolic blood pressure 2024-03-22 19:16:00 201 mm[Hg] [facility] Diastolic blood pressure 2024-03-22 19:16:00 78 mm[Hg] [facility] Heart rate 2024-03-22 19:15:00 92 /min [facility] Body temperature 2024-03-22 19:15:00 37.06 Mela [facility] Respiratory rate 2024-03-22 19:15:00 18 /min [facility] Body height 2024-03-22 19:15:00 160 cm [facility] Body weight 2024-03-22 19:15:00 77.701 kg [facility] BMI 2024-03-22 19:15:00 30.34 kg/m2 [facility] Oxygen saturation in Arterial blood by Pulse oximetry 2024-03-22 19:15:00 98 /min [facility] Systolic blood pressure 2024-03-12 14:20:00 215 mm[Hg] [facility] Diastolic blood pressure 2024-03-12 14:20:00 87 mm[Hg] [facility] Heart rate 2024-03-12 14:18:00 93 /min [facility] Body temperature 2024-03-12 14:18:00 36.94 Mela [facility] Respiratory rate 2024-03-12 14:18:00 16 /min [facility] Body height 2024-03-12 14:18:00 160 cm [facility] Body weight 2024-03-12 14:18:00 74.39 kg [facility] BMI 2024-03-12 14:18:00 29.05 kg/m2 [facility] Oxygen saturation in Arterial blood by Pulse oximetry 2024-03-12 14:18:00 98 /min [facility] Systolic blood pressure 2024-01-11 20:02:00 183 mm[Hg] [facility] Diastolic blood pressure 2024-01-11 20:02:00 76 mm[Hg] [facility] Heart rate 2024-01-11 20:01:00 63 /min [facility] Body height 2024-01-11 20:01:00 160 cm [facility] Body weight 2024-01-11 20:01:00 78.881 kg [facility] BMI 2024-01-11 20:01:00 30.81 kg/m2 [facility] Oxygen saturation in Arterial blood by Pulse oximetry 2024-01-11 20:01:00 97 /min [facility] Systolic blood pressure 2023-09-15 17:09:00 180 mm[Hg] [facility] Diastolic blood pressure 2023-09-15 17:09:00 80 mm[Hg] [facility] Heart rate 2023-09-15 17:08:00 80 /min [facility] Body height 2023-09-15 17:08:00 160 cm [facility] Body weight 2023-09-15 17:08:00 75.524 kg [facility] BMI 2023-09-15 17:08:00 29.49 kg/m2 [facility] Oxygen saturation in Arterial blood by Pulse oximetry 2023-09-15 17:08:00 96 /min [facility] Systolic blood pressure 2023-05-19 17:07:00 170 mm[Hg] [facility] Diastolic blood pressure 2023-05-19 17:07:00 82 mm[Hg] [facility] Heart rate 2023-05-19 17:07:00 83 /min [facility] Body temperature 2023-05-19 17:07:00 36.5 Mela [facility] Respiratory rate 2023-05-19 17:07:00 18 /min [facility] Body height 2023-05-19 17:07:00 160 cm [facility] Body weight 2023-05-19 17:07:00 74.844 kg [facility] BMI 2023-05-19 17:07:00 29.23 kg/m2 [facility] Oxygen saturation in Arterial blood by Pulse oximetry 2023-05-19 17:07:00 98 /min [facility] Systolic blood pressure 2023-04-07 13:23:00 184 mm[Hg] [facility] Diastolic blood pressure 2023-04-07 13:23:00 90 mm[Hg] [facility] Heart rate 2023-04-07 13:22:00 81 /min [facility] 2023-04-07 13:22:00 18 /min [facility] Body height 2023-04-07 13:22:00 160 cm [facility] Body weight 2023-04-07 13:22:00 76.204 kg [facility] BMI 2023-04-07 13:22:00 29.76 kg/m2 [facility] Oxygen saturation in Arterial blood by Pulse oximetry 2023-04-07 13:22:00 98 /min [facility] Systolic blood pressure 2022-10-06 12:16:00 182 mm[Hg] [facility] Diastolic blood pressure 2022-10-06 12:16:00 80 mm[Hg] [facility] Heart rate 2022-10-06 12:15:00 72 /min [facility] Body temperature 2022-10-06 12:15:00 36.78 Mela [facility] Body height 2022-10-06 12:15:00 160 cm [facility] Body weight 2022-10-06 12:15:00 75.66 kg [facility] BMI 2022-10-06 12:15:00 29.55 kg/m2 [facility] Oxygen saturation in Arterial blood by Pulse oximetry 2022-10-06 12:15:00 98 /min [facility] Systolic blood pressure 2022-08-12 19:34:00 177 mm[Hg] [facility] Diastolic blood pressure 2022-08-12 19:34:00 78 mm[Hg] [facility] Heart rate 2022-08-12 19:30:00 81 /min [facility] Body weight 2022-08-12 19:30:00 76.34 kg [facility] BMI 2022-08-12 19:30:00 29.81 [facility]m2 [facility] Oxygen saturation in Arterial blood by Pulse oximetry 2022-08-12 19:30:00 96 /min [facility] Systolic blood pressure 2021-12-30 18:53:00 144 mm[Hg] [facility] Diastolic blood pressure 2021-12-30 18:53:00 74 mm[Hg] [facility] Heart rate 2021-12-30 18:52:00 79 /min [facility] Body height 2021-12-30 18:52:00 160 cm [facility] Body weight 2021-12-30 18:52:00 74.844 kg [facility] BMI 2021-12-30 18:52:00 29.23 kg/m2 [facility] Procedures Procedure Date / Time Performed Performing Clinician Source CT ABDOMEN PELVIS WO CONTRAST 2024-08-22 15:52:50 Salbador [facility] LIPASE 2024-08-22 15:22:00 Salbador [facility] COMP. METABOLIC PANEL (47315) 2024-08-22 15:22:00 Salbador [facility] CBC WITH DIFF 2024-08-22 15:22:00 Salbador [facility] URINALYSIS 2024-08-22 15:22:00 Salbador [facility] PERFORMANCE OF URINARY FILTRATION, <6 HRS/DAY 2024-06-05 00:00:00 RASSU [facility] PERFORMANCE OF URINARY FILTRATION, <6 HRS/DAY 2024-05-11 00:00:00 SAMKA.01 [facility] DILATION OF CORONARY ARTERY, ONE ARTERY, PERC APPR 2024-05-10 00:00:00 KUMAR01 [facility] MEASURE CARDIAC SAMPL PRESSURE, BILATERAL, PERC 2024-05-10 00:00:00 [id number] [facility] ULTRASONOGRAPHY OF SINGLE CORONARY ARTERY, INTRAVA 2024-05-10 00:00:00 [id number] [facility] FLUOROSCOPY OF MULT COR ART USING L OSM CONTRAST 2024-05-10 00:00:00 [id number] [facility] ULTRASONOGRAPHY OF LEFT HEART 2024-05-10 00:00:00 [id number] [facility] POCT Glucose 2024-05-09 00:00:00 [facility] PERFORMANCE OF URINARY FILTRATION, <6 HRS/DAY 2024-05-09 00:00[facility]00 [facility] PERFORMANCE OF URINARY FILTRATION, <6 HRS/DAY 2024-05-07 00:00:00 [facility] INSERTION OF INFUSION DEV INTO R SUBCLAV VEIN, PER 2024-05-05 00:00:00 [facility] PERFORMANCE OF URINARY FILTRATION, <6 HRS/DAY 2024-05-03 00:00:[address] PERFORMANCE OF URINARY FILTRATION, <6 HRS/DAY 2024-05-02 00:00:[address] PERFORMANCE OF URINARY FILTRATION, <6 HRS/DAY 2024-05-01 00:00:[address] PERFORMANCE OF URINARY FILTRATION, <6 HRS/DAY 2024-04-30 00:00:[address] POCT Glucose 2024-04-29 00:00:00 [facility] PERFORMANCE OF URINARY FILTRATION, <6 HRS/DAY 2024-04-29 00:00:[address] ECG 12-LEAD 2024-04-18 16:40:15 Henrique Oh [facility] ECG 12-LEAD 2024-04-18 16:38:51 Eleno Ohstantinos [facility] Basic metabolic panel 2024-04-18 00:00:00 [facility] POC GLUCOSE UNSOLICITED RESULTS 2024-04-11 07:34:00 Carla Gayle [facility] BASIC METABOLIC PANEL 2024-04-11 02:20:00 Soo Gregg [facility] COMPLETE BLOOD COUNT W/DIFF AND PLATELET 2024-04-11 02:20:00 Soo Gregg [facility] PT AND PTT 2024-04-11 02:20:00 Yakov Cuadra [facility] COMPLETE BLOOD COUNT 2024-04-11 02:20:00 Soo Gregg [facility] AUTOMATED DIFFERENTIAL 2024-04-11 02:20:00 Soo Gregg [facility] HEMODIALYSIS INPATIENT 2024-04-11 00:30:23 EileenKirt metz Andre [facility] Cardiac event monitor 2024-04-11 00:00:00 [facility] POC GLUCOSE UNSOLICITED RESULTS 2024-04-10 21:30:00 Darius Gaylejeet [facility] ECG 12-LEAD 2024-04-10 16:48:22 ArronTabitha foreman [facility] POC GLUCOSE UNSOLICITED RESULTS 2024-04-10 16:44:00 Ab Mitchhijeet [facility] BASIC METABOLIC PANEL 2024-04-10 14:35:00 Maria Victoria Jorge Luisomid Mota [facility] ECG 12-LEAD 2024-04-10 13:44:41 Ab Mitchhijeet [facility] POC GLUCOSE UNSOLICITED RESULTS 2024-04-10 11:44:00 Ab Mitchhijeet [facility] POC GLUCOSE UNSOLICITED RESULTS 2024-04-10 07:42:00 Ab Mitchhijeet [facility] COMPREHENSIVE METABOLIC PANEL 2024-04-10 04:16:00 Uri [facility] COMPLETE BLOOD COUNT W/DIFF AND PLATELET 2024-04-10 04:16:00 Uri [facility] COMPLETE BLOOD COUNT 2024-04-10 04:16:00 Uri [facility] AUTOMATED DIFFERENTIAL 2024-04-10 04:16:00 Uri [facility] POC GLUCOSE UNSOLICITED RESULTS 2024-04-09 20:18:00 Ab Mitchhijeet [facility] POC GLUCOSE UNSOLICITED RESULTS 2024-04-09 16:18:00 Ab Mitchhijeet [facility] BASIC METABOLIC PANEL 2024-04-09 14:45:00 Shashank Pizano [facility] CREATINE KINASE (CK TOTAL) 2024-04-09 14:45:00 Uri [facility] POC GLUCOSE UNSOLICITED RESULTS 2024-04-09 13:24:00 Ab Mitchhijeet [facility] XR CHEST 1 VIEW 2024-04-09 11:28:31 Uri [facility] POC GLUCOSE UNSOLICITED RESULTS 2024-04-09 10:58:00 [facility] 2024-04-09 10:10:10 Kirt Hall [facility] ECG 12-LEAD 2024-04-09 10:06:39 Jayla Grewal [facility] Epic POC GLUCOSE UNSOLICITED RESULTS 2024-04-09 07:25:00 Darius Gaylejeet [facility] ECG 12-LEAD 2024-04-09 06:03:14 Soo Gregg [facility] BASIC METABOLIC PANEL 2024-04-09 06:02:00 Soo Gregg [facility] CREATINE KINASE (CK TOTAL) 2024-04-09 06:02:00 Arturo Guillen [facility] ECG 12-LEAD 2024-04-09 03:16:11 Soo Gregg [facility] COMPREHENSIVE METABOLIC PANEL 2024-04-09 01:15:00 Uri Jayla [facility] COMPLETE BLOOD COUNT W/DIFF AND PLATELET 2024-04-09 01:15:00 Uri Jayla [facility] COMPLETE BLOOD COUNT 2024-04-09 01:15:00 Uri Jayla [facility] AUTOMATED DIFFERENTIAL 2024-04-09 01:15:00 Uri [facility] POC GLUCOSE UNSOLICITED RESULTS 2024-04-08 22:02:00 Mitch [facility] Epic POC GLUCOSE UNSOLICITED RESULTS 2024-04-08 16:56:00 [facility] POC GLUCOSE UNSOLICITED RESULTS 2024-04-08 11:16:00 Ab Mitchhijeet [facility] ECG 12-LEAD 2024-04-08 07:31:16 Uri [facility] POC GLUCOSE UNSOLICITED RESULTS 2024-04-08 07:09:00 Mitch Carla [facility] COMPREHENSIVE METABOLIC PANEL 2024-04-08 00:09:00 Uri [facility] COMPLETE BLOOD COUNT W/DIFF AND PLATELET 2024-04-08 00:09:00 UriJayla [facility] COMPLETE BLOOD COUNT 2024-04-08 00:09:00 Uri Jayla White [facility] AUTOMATED DIFFERENTIAL 2024-04-08 00:09:00 Uri Jayla White [facility] Cardiac event monitor 2024-04-08 00:00:00 [facility] POC GLUCOSE UNSOLICITED RESULTS 2024-04-07 21:02:00 Yakov Cuadra [facility] POC GLUCOSE UNSOLICITED RESULTS 2024-04-07 17:28:00 Ab Mitchhijeet [facility] ECG 12-LEAD 2024-04-07 12:36:02 Niels Verdugo [facility] POC GLUCOSE UNSOLICITED RESULTS 2024-04-07 12:34:00 Ab Mitchhijeet [facility] HEMODIALYSIS INPATIENT 2024-04-07 09:22:40 Kirt Hall [facility] POC GLUCOSE UNSOLICITED RESULTS 2024-04-07 07:52:00 Ab Mitchhijeet [facility] POC GLUCOSE UNSOLICITED RESULTS 2024-04-07 06:46:00 Ab Mitchhijeet [facility] COMPREHENSIVE METABOLIC PANEL 2024-04-07 02:15:00 Uri Jayla Gonzalezbles [facility] MAGNESIUM LEVEL 2024-04-07 02:15:00 Ivette Bond [facility] PHOSPHORUS LEVEL 2024-04-07 02:15:00 Ivette Bond [facility] COMPLETE BLOOD COUNT W/DIFF AND PLATELET 2024-04-07 02:15:00 Ivette Bond [facility] CALCIUM LEVEL IONIZED WHOLE BLOOD 2024-04-07 02:15:00 Ivette Bond [facility] COMPLETE BLOOD COUNT 2024-04-07 02:15:00 Ivette Bodn [facility] AUTOMATED DIFFERENTIAL 2024-04-07 02:15:00 Ivette Bond [facility] Check puncture site for bleeding or hematoma with each vital sign check. If bleeding or hematoma occurs, apply manual pressure immediately. 2024-04-07 00:00:00 [facility] POC GLUCOSE UNSOLICITED RESULTS 2024-04-06 21:31:00 Mitch Carla [facility] POC GLUCOSE UNSOLICITED RESULTS 2024-04-06 18:44:00 Ab Mitchhijeet [facility] IR CVC TUNNELED 2024-04-06 16:01:35 Soo Gregg [facility] POC GLUCOSE UNSOLICITED RESULTS 2024-04-06 12:24:00 Mitch Carla [facility] HEMODIALYSIS INPATIENT 2024-04-06 09:43:14 Shashank Pizano [facility] XR CHEST 1 VIEW 2024-04-06 04:40:00 Ronda Ivette Bethany [facility] COMPREHENSIVE METABOLIC PANEL 2024-04-06 01:47:00 Ivette Bond [facility] MAGNESIUM LEVEL 2024-04-06 01:47:00 Ronda, Ivette Chisholmn [facility] PHOSPHORUS LEVEL 2024-04-06 01:47:00 Alicia Bondica Bethany [facility] TYPE AND SCREEN 2024-04-06 01:47:00 Isaac BondIvette Bethany [facility] COMPLETE BLOOD COUNT W/DIFF AND PLATELET 2024-04-06 01:47:00 Ivette Bond [facility] PTT 2024-04-06 01:47:00 Ivette Bond [facility] CALCIUM LEVEL IONIZED WHOLE BLOOD 2024-04-06 01:47:00 Ronda Ivette Chisholmn [facility] COMPLETE BLOOD COUNT 2024-04-06 01:47:00 Ronda Ivette Bethany [facility] AUTOMATED DIFFERENTIAL 2024-04-06 01:47:00 Ronda Ivette Chisholmn [facility] POC GLUCOSE UNSOLICITED RESULTS 2024-04-05 22:21:00 Mitch Carla [facility] POC GLUCOSE UNSOLICITED RESULTS 2024-04-05 18:05:00 Mitch [facility] PT AND PTT 2024-04-05 17:26:00 Mitch, [facility] PT AND PTT 2024-04-05 11:52:00 Mitch [facility] FERRITIN 2024-04-05 11:49:00 Arturo Guillen [facility] IRON + TRANSFERRIN + TIBC 2024-04-05 11:49:00 Arturo Guillen [facility] HEPATITIS B CORE ANTIBODY 2024-04-05 11:49:00 Brent Ирина Radha [facility] HEPATITIS B SURFACE ANTIBODY, QUALITATIVE 2024-04-05 11:49:00 David Kennedyison Radha [facility] HEMODIALYSIS INPATIENT 2024-04-05 06:35:49 Kiara Hall [facility] POC GLUCOSE UNSOLICITED RESULTS 2024-04-05 06:21:00 Carla Gayle [facility] MAGNESIUM LEVEL 2024-04-05 05:16:00 Tabitha Bedoya [facility] PHOSPHORUS LEVEL 2024-04-05 05:16:00 [facility]24-04-05 05:16:00 [facility] P[facility] VENOUS BLOOD GAS AND COMPREHENSIVE PANEL UNSOLICITED RESULTS 2024-04-05 03:50:00 Carla Gayle [facility] COMPREHENSIVE METABOLIC PANEL 2024-04-05 00:32:00 Uri [facility] COMPLETE BLOOD COUNT W/DIFF AND PLATELET 2024-04-05 00:32:00 Uri [facility] TROPONIN I HIGH SENSITIVITY (SINGLE ORDER) 2024-04-05 00:32:00 Tabitha Bedoya [facility] COMPLETE BLOOD COUNT 2024-04-05 00:32:00 Uri [facility] AUTOMATED DIFFERENTIAL 2024-04-05 00:32:00 Uri [facility] TRANSTHORACIC ECHO (TTE) COMPLETE 2024-04-04 23:00:00 Uri [facility] ECG 12-LEAD 2024-04-04 22:29:56 Tabitha Bedoya [facility] XR CHEST 1 VIEW 2024-04-04 21:27:00 [facility] VENOUS BLOOD GAS AND COMPREHENSIVE PANEL UNSOLICITED RESULTS 2024-04-04 20:40:00 Carla Gayle [facility] IRON + TRANSFERRIN + TIBC 2024-04-04 20:17:00 Ирина Kennedy [facility] TROPONIN I HIGH SENSITIVITY CARESET 2024-04-04 20:17:00 Arronrosalvaaaliyah Tabitha [facility] TROPONIN I HIGH SENSITIVITY CARESET (BASELINE) 2024-04-04 20:17:00 Elke [facility] PT AND PTT 2024-04-04 20:17:00 Irina Barreto [facility] ECG 12-LEAD 2024-04-04 20:16:53 Elke Tabitha [facility] POC GLUCOSE UNSOLICITED RESULTS 2024-04-04 19:48:00 Mitch Carla [facility] POC GLUCOSE UNSOLICITED RESULTS 2024-04-04 16:51:00 Ab Mitchhijeet [facility] XR CHEST 1 VIEW 2024-04-04 14:31:31 Ирина Kennedy [facility] POC GLUCOSE UNSOLICITED RESULTS 2024-04-04 11:09:00 Carla Gayle [facility] PT AND PTT 2024-04-04 09:04:00 Irina Barreto [facility] ECG 12-LEAD 2024-04-04 07:27:13 Madisyn Prather [facility] HEMODIALYSIS INPATIENT 2024-04-04 07:15:16 Kirt Hall [facility] POC GLUCOSE UNSOLICITED RESULTS 2024-04-04 05:47:00 Carla Gayle [facility] COMPLETE BLOOD COUNT W/DIFF AND PLATELET 2024-04-04 05:42:[address] [facility] MANUAL DIFFERENTIAL 2024-04-04 05:42:[address] [facility] COMPLETE BLOOD COUNT 2024-04-04 05:42:00 Alexia [facility] AUTOMATED DIFFERENTIAL 2024-04-04 05:42:00 Alexia [facility] REFLEX MAN DIFF AND MORPH - DO NOT ORDER 2024-04-04 05:42:[address] [facility] COMPREHENSIVE METABOLIC PANEL 2024-04-04 00:11:00 Smithhart, [facility] MAGNESIUM LEVEL 2024-04-04 00:11:00 Tabitha Bedoya [facility] PHOSPHORUS LEVEL 2024-04-04 00:11:00 Tabitha Bedoya [facility] COMPLETE BLOOD COUNT W/DIFF AND PLATELET 2024-04-04 00:11:00 Uri [facility] MANUAL DIFFERENTIAL 2024-04-04 00:11:00 Uri [facility] HIV 4TH GEN WITH REFLEX 2024-04-04 00:11:00 Madyson Sutton [facility] HEPATITIS B SURFACE ANTIBODY, QUALITATIVE 2024-04-04 00:11:00 Madyson Sutton [facility] PT AND PTT 2024-04-04 00:11:00 Tabitha Bedoya [facility] COMPLETE BLOOD COUNT 2024-04-04 00:11:00 Uri [facility] AUTOMATED DIFFERENTIAL 2024-04-04 00:11:00 Uri [facility] REFLEX MAN DIFF AND MORPH - DO NOT ORDER 2024-04-04 00:11:00 Uri [facility] POC GLUCOSE UNSOLICITED RESULTS 2024-04-03 19:38:00 Ab Mitchhijeet [facility] PT AND PTT 2024-04-03 18:14:00 Ab Mitchhijeet [facility] POC GLUCOSE UNSOLICITED RESULTS 2024-04-03 16:19:00 Carla Gayle [facility] HEMODIALYSIS INPATIENT 2024-04-03 12:50:55 Shashank [facility]iz[facility] Epic PT AND PTT 2024-04-03 11:41:00 [facility] 2024-04-03 11:31:00 Ирина Kennedy [facility] POC GLUCOSE UNSOLICITED RESULTS 2024-04-03 11:11:00 Ab Mitchhijeet [facility] POC GLUCOSE UNSOLICITED RESULTS 2024-04-03 07:23:00 Ab Mitchhijeet [facility] VANCOMYCIN LEVEL 2024-04-03 05:22:00 Doug Hale [facility] PT AND PTT 2024-04-03 05:22:00 TaveraChandlerraissa Andrew Mitchell [facility] ECG 12-LEAD 2024-04-03 03:41:34 Dung Wells [facility] COMPLETE BLOOD COUNT W/DIFF AND PLATELET 2024-04-03 00:16:00 [facility] Andrew Stephen [facility] COMPLETE BLOOD COUNT 2024-04-03 00:16:00 Odalys Andrew [facility] AUTOMATED DIFFERENTIAL 2024-04-03 00:16:00 [facility] System[facility] Andrew [facility] COMPREHENSIVE METABOLIC PANEL 2024-04-03 00:15:00 Andrew Morrow [facility] MAGNESIUM LEVEL 2024-04-03 00:15:00 Odalys Andrew [facility] PHOSPHORUS LEVEL 2024-04-03 00:15:00 Odalys [place] [facility] CALCIUM LEVEL IONIZED WHOLE BLOOD 2024-04-03 00:15:00 Odalys [place] [facility] PT AND PTT 2024-04-03 00:15:00 Odalys [place] [facility] POC GLUCOSE UNSOLICITED RESULTS 2024-04-02 20:50:00 Darius Gaylejeet [facility] POC GLUCOSE UNSOLICITED RESULTS 2024-04-02 16:17:00 Carla Gayle [facility] PTT 2024-04-02 16:11:00 [facility]ILL[facility]AC[facility] W IV CONTRAST 2024-04-02 14:08:47 Madyson Sutton [facility] POC ARTERIAL BLOOD GAS AND COMPREHENSIVE PANEL UNSOLICITED RESULTS 2024-04-02 11:25:00 Yakov Cuadra [facility] MAGNESIUM LEVEL 2024-04-02 11:14:00 Josh Vanessa [facility] PHOSPHORUS LEVEL 2024-04-02 11:14:00 Josh Vanessa [facility] CALCIUM LEVEL IONIZED WHOLE BLOOD 2024-04-02 11:14:00 Josh Vanessa [facility] BASIC METABOLIC PANEL 2024-04-02 11:14:00 Josh Vanessa [facility] COMPLETE BLOOD COUNT W/DIFF AND PLATELET 2024-04-02 10:48:00 [facility] 2024-04-02 10:48:00 Yakov Cuadra [facility] COMPLETE BLOOD COUNT 2024-04-02 10:48:[address] [facility] AUTOMATED DIFFERENTIAL 2024-04-02 10:48:00 [facility] ARTERIAL BLOOD GAS AND COMPREHENSIVE PANEL UNSOLICITED RESULTS 2024-04-02 03:23:00 Yakov Cuadra [facility] COMPREHENSIVE METABOLIC PANEL 2024-04-02 03:14:00 Yakov Cuadra [facility] MAGNESIUM LEVEL 2024-04-02 03:14:00 Yakov Cuadra [facility] COMPLETE BLOOD COUNT W/DIFF AND PLATELET 2024-04-02 03:14:00 Yakov Cuadra [facility] CALCIUM LEVEL IONIZED WHOLE BLOOD 2024-04-02 03:14:00 Yakov Cuadra [facility] PT AND PTT 2024-04-02 03:14:00 Yakov Cuadra [facility] COMPLETE BLOOD COUNT 2024-04-02 03:14:00 Yakov Cuadra [facility] AUTOMATED DIFFERENTIAL 2024-04-02 03:14:00 Yakov Cuadra [facility] POC ARTERIAL BLOOD GAS AND COMPREHENSIVE PANEL UNSOLICITED RESULTS 2024-04-01 19:41:00 Yakov Cuadra [facility] MAGNESIUM LEVEL 2024-04-01 19:33:00 Yakov Cuadra [facility] PHOSPHORUS LEVEL 2024-04-01 19:33:00 Yakov Cuadra [facility] PTT 2024-04-01 19:33:00 Yakov Cuadra [facility] CALCIUM LEVEL IONIZED WHOLE BLOOD 2024-04-01 19:33:00 Yakov Cuadra [facility] BASIC METABOLIC PANEL 2024-04-01 19:33:00 Yakov Cuadra [facility] POC ARTERIAL BLOOD GAS AND COMPREHENSIVE PANEL UNSOLICITED RESULTS 2024-04-01 18:20:00 Yakov Cuadra [facility] POC GLUCOSE UNSOLICITED RESULTS 2024-04-01 17:24:00 Yakov Cuadra [facility] POC ARTERIAL BLOOD GAS AND COMPREHENSIVE PANEL UNSOLICITED RESULTS 2024-04-01 11:46:00 Yakov Cuadra [facility] MAGNESIUM LEVEL 2024-04-01 11:40:00 Yakov Cuadra [facility] PHOSPHORUS LEVEL 2024-04-01 11:40:00 Yakov Cuadra [facility] PTT 2024-04-01 11:40:00 Yakov Cuadra [facility] CALCIUM LEVEL IONIZED WHOLE BLOOD 2024-04-01 11:40:00 Yakov Cuadra [facility] POC GLUCOSE UNSOLICITED RESULTS 2024-04-01 11:40:00 Yakov Cuadra [facility] BASIC METABOLIC PANEL 2024-04-01 11:40:00 Yakov Cuadra [facility] POC GLUCOSE UNSOLICITED RESULTS 2024-04-01 08:58:00 Yakov Cuadra [facility] XR CHEST 1 VIEW 2024-04-01 08:10:00 Tabitha Bedoya [facility] POC ARTERIAL BLOOD GAS AND COMPREHENSIVE PANEL UNSOLICITED RESULTS 2024-04-01 03:32:00 Yakov Cuadra [facility] COMPREHENSIVE METABOLIC PANEL 2024-04-01 03:22:00 Yakov Cuadra [facility] VANCOMYCIN LEVEL 2024-04-01 03:22:00 Doug Hale [facility] LACTIC ACID LEVEL 2024-04-01 03:22:00 Yakov Cuadra [facility] MAGNESIUM LEVEL 2024-04-01 03:22:00 Yakov Cuadra [facility] B-TYPE NATRIURETIC PEPTIDE 2024-04-01 03:22:00 Quang Lay [facility] PHOSPHORUS LEVEL 2024-04-01 03:22:00 [facility] W/DIFF AND PLATELET 2024-04-01 03:22:[address] [facility] CALCIUM LEVEL IONIZED WHOLE BLOOD 2024-04-01 03:22:00 Yakov Cuadra [facility] TROPONIN I HIGH SENSITIVITY (SINGLE ORDER) 2024-04-01 03:22:00 Yakov Cuadra [facility] PT AND PTT 2024-04-01 03:22:00 Yakov Cuadra [facility] COMPLETE BLOOD COUNT 2024-04-01 03:22:00 Alexia[facility] 2024-04-01 03:22:00 Alexia, [facility] TROPONIN I HIGH SENSITIVITY (SINGLE ORDER) 2024-03-31 21:41:00 Yakov Cuadra [facility] PROTIME-INR 2024-03-31 20:58:00 Alexia[facility] 2024-03-31 20:58:00 Alexia, [facility] COMPLETE BLOOD COUNT 2024-03-31 20:58:00 Alexia, [facility] Complete Blood Count w/Manual Diff 2024-03-31 20:58:00 Alexia, [facility] MANUAL DIFFERENTIAL (FOR CBC W/MAN DIFF) 2024-03-31 20:58:00 [facility] POC GLUCOSE UNSOLICITED RESULTS 2024-03-31 20:24:00 [facility] LACTIC ACID LEVEL 2024-03-31 19:41:00 Yakov Cuadra [facility] MAGNESIUM LEVEL 2024-03-31 19:41:00 [facility]CI[facility] LEVEL IONIZED WHOLE BLOOD 2024-03-31 19:41:00 [facility] BASIC METABOLIC PANEL 2024-03-31 19:41:00 Yakov Cuadra [facility] POC ARTERIAL BLOOD GAS AND COMPREHENSIVE PANEL UNSOLICITED RESULTS 2024-03-31 19:22:00 Yakov Cuadra [facility] TYPE AND SCREEN 2024-03-31 19:17:00 Yakov Cuadra [facility] POC VENOUS BLOOD GAS AND COMPREHENSIVE PANEL UNSOLICITED RESULTS 2024-03-31 18:12:00 Yakov Cuadra [facility] MAGNESIUM LEVEL 2024-03-31 18:09:00 Yakov Cuadra [facility] PHOSPHORUS LEVEL 2024-03-31 18:09:00 Yakov Cuadra [facility] TROPONIN I HIGH SENSITIVITY (SINGLE ORDER) 2024-03-31 18:09:00 Soo Gregg [facility] BASIC METABOLIC PANEL 2024-03-31 18:09:00 Arturo Guillen [facility] POC GLUCOSE UNSOLICITED RESULTS 2024-03-31 18:07:00 Yakov Cuadra [facility] XR ABDOMEN 1 VIEW 2024-03-31 17:30:00 Soo Gregg [facility] POC GLUCOSE UNSOLICITED RESULTS 2024-03-31 16:43:00 Yakov Cuadra [facility] MAGNESIUM LEVEL 2024-03-31 12:18:00 Saroj Hernández [facility] PHOSPHORUS LEVEL 2024-03-31 12:18:00 Saroj Hernández [facility] CALCIUM LEVEL IONIZED WHOLE BLOOD 2024-03-31 12:18:00 Saroj Hernández [facility] BASIC METABOLIC PANEL 2024-03-31 12:18:00 Arturo Guillen [facility] TRANSTHORACIC ECHO (TTE) COMPLETE W/ STRAIN 2024-03-31 12:00:00 Madyson Sutton [facility] TRANSPLANT RESPIRATORY VIRAL PANEL [facility] 2024-03-31 11:38:00 Saroj Hernández [facility] POC GLUCOSE UNSOLICITED RESULTS 2024-03-31 11:18:00 Yakov Cuadra [facility] POC ARTERIAL BLOOD GAS AND COMPREHENSIVE PANEL UNSOLICITED RESULTS 2024-03-31 09:07:00 Yakov Cuadra [facility] LACTIC ACID LEVEL 2024-03-31 08:11:00 Yakov Cuadra [facility] TROPONIN I HIGH SENSITIVITY (SINGLE ORDER) 2024-03-31 08:11:00 Jayla Grewal [facility] BASIC METABOLIC PANEL 2024-03-31 08:11:00 Arturo Guillen [facility] ECG 12-LEAD 2024-03-31 07:14:30 Arturo Guillen Chavo [facility] POC GLUCOSE UNSOLICITED RESULTS 2024-03-31 07:06:00 [facility] TRANSTHORACIC ECHO (TTE) LIMITED W/ DOPPLER, COLOR AND CONTRAST 2024-03-31 05:58:00 Arturo Guillen [facility] ECG 12-LEAD 2024-03-31 05:29:10 Arturo Guillen Chavo [facility] SARAH/PEDS INSERT ARTERIAL LINE 2024-03-31 05:15:19 Doug Hale [facility] POC ARTERIAL BLOOD GAS AND COMPREHENSIVE PANEL UNSOLICITED RESULTS 2024-03-31 04:25:00 Yakov Cuadra [facility] COMPREHENSIVE METABOLIC PANEL 2024-03-31 04:14:00 Jayla Grewal [facility] LACTIC ACID LEVEL 2024-03-31 04:14:00 Yakov Cuadra [facility] MAGNESIUM LEVEL 2024-03-31 04:14:00 Yakov Cuadra [facility] PHOSPHORUS LEVEL 2024-03-31 04:14:00 Yakov Cuadra [facility] COMPLETE BLOOD COUNT W/DIFF AND PLATELET 2024-03-31 04:14:00 Yakov Cuadra [facility] CALCIUM LEVEL IONIZED WHOLE BLOOD 2024-03-31 04:14:00 [facility] 2024-03-31 04:14:00 Yakov Cuadra [facility] COMPLETE BLOOD COUNT 2024-03-31 04:14:00 Yakov Cuadra [facility] AUTOMATED DIFFERENTIAL 2024-03-31 04:14:00 Yakov Cuadra [facility] POC ARTERIAL BLOOD GAS AND COMPREHENSIVE PANEL UNSOLICITED RESULTS 2024-03-31 01:57:00 Y[facility]ra [facility] [facility] LACTIC ACID LEVEL 2024-03-31 01:53:00 Yakov Cuadra [facility] TROPONIN I HIGH SENSITIVITY (SINGLE ORDER) 2024-03-31 01:53:00 Yakov Cuadra [facility] XR CHEST 1 VIEW 2024-03-31 00:12:00 Kameron Mccarty [facility] POC VENOUS BLOOD GAS AND COMPREHENSIVE PANEL UNSOLICITED RESULTS 2024-03-30 22:57:00 Yakov Cuadra [facility] POC VENOUS BLOOD GAS AND COMPREHENSIVE PANEL UNSOLICITED RESULTS 2024-03-30 21:53:00 Yakov Cuadra [facility] LACTIC ACID LEVEL 2024-03-30 21:47:00 Arturo Guillen [facility] POC VENOUS BLOOD GAS AND COMPREHENSIVE PANEL UNSOLICITED RESULTS 2024-03-30 20:24:00 Yakov Cuadra [facility] MAGNESIUM LEVEL 2024-03-30 20:09:00 Yakov Cuadra [facility] PHOSPHORUS LEVEL 2024-03-30 20:09:00 Yakov Cuadra [facility] CALCIUM LEVEL IONIZED WHOLE BLOOD 2024-03-30 20:09:00 Yakov Cuadra [facility] TROPONIN I HIGH SENSITIVITY (SINGLE ORDER) 2024-03-30 20:09:00 Jayla Grewal [facility] BASIC METABOLIC PANEL 2024-03-30 20:09:00 Arturo Guillen [facility] POC GLUCOSE UNSOLICITED RESULTS 2024-03-30 16:25:00 Yakov Cuadra [facility] PARAINFLUENZA 1-4 PCR 2024-03-30 14:19:00 Yakov Cuadra [facility] INFLUENZA A/B/RSV PCR 2024-03-30 14:19:00 Yakov Cuadra [facility] POC GLUCOSE UNSOLICITED RESULTS 2024-03-30 13:01:00 Yakov Cuadra [facility] MAGNESIUM LEVEL 2024-03-30 12:58:00 Darline Cuadraomar ArizaCallaway [facility] PHOSPHORUS LEVEL 2024-03-30 12:58:00 Darline Cuadray Callaway [facility] CALCIUM LEVEL IONIZED WHOLE BLOOD 2024-03-30 12:58:00 Darline Cuadraomar ArizaCallaway [facility] BASIC METABOLIC PANEL 2024-03-30 12:58:00 Yakov Cuadra [facility] US UPPER EXTREMITY VENOUS DOPPLER RIGHT 2024-03-30 12:00:00 Ирина Kennedy [facility] ECG 12-LEAD 2024-03-30 11:46:39 Soo Gregg [facility] POC GLUCOSE UNSOLICITED RESULTS 2024-03-30 11:36:00 Yakov Cuadra Callaway [facility] TROPONIN I HIGH SENSITIVITY (SINGLE ORDER) 2024-03-30 10:18:00 Soo Gregg [facility] POC GLUCOSE UNSOLICITED RESULTS 2024-03-30 08:29:00 Yakov Cuadra [facility] LACTIC ACID LEVEL 2024-03-30 03:05:00 Yakov Cuadra [facility] COMPREHENSIVE METABOLIC PANEL 2024-03-30 03:01:00 Uri [facility] MAGNESIUM LEVEL 2024-03-30 03:01:00 Kirt Hall Andre [facility] PHOSPHORUS LEVEL 2024-03-30 03:01:00 Kirt Hall Andre [facility] COMPLETE BLOOD COUNT W/DIFF AND PLATELET 2024-03-30 03:01:00 Uri [facility] IRON + TRANSFERRIN + TIBC 2024-03-30 03:01:00 Leonila Olsen [facility] CALCIUM LEVEL IONIZED WHOLE BLOOD 2024-03-30 03:01:00 Kirt Hall Andre [facility] COMPLETE BLOOD COUNT 2024-03-30 03:01:00 Uri [facility] AUTOMATED DIFFERENTIAL 2024-03-30 03:01:00 Uri [facility] BASIC METABOLIC PANEL 2024-03-30 03:01:00 Kirt Hall [facility] Potassium Level Urine 2024-03-30 00:00:00 [facility] Sodium Level Urine 2024-03-30 00:00:00 [facility] Chloride Level Urine 2024-03-30 00:00:00 [facility] Creatinine Urine 2024-03-30 00:00:00 [facility] Albumin-Creatinine Ratio Urine 2024-03-30 00:00:00 [facility] Osmolality Urine 2024-03-30 00:00:00 [facility] CONTINUOUS VENOVENOUS HEMODIALYSIS 2024-03-29 21:20:10 Wesley Cristina [facility] POC GLUCOSE UNSOLICITED RESULTS 2024-03-29 18:01:00 Yakov Cuadra [facility] MAGNESIUM LEVEL 2024-03-29 16:39:00 Kirt Hall Andre [facility] PHOSPHORUS LEVEL 2024-03-29 16:39:00 Kirt Hall Andre [facility] BASIC METABOLIC PANEL 2024-03-29 16:39:00 Kirt Hall [facility] CALCIUM LEVEL IONIZED WHOLE BLOOD 2024-03-29 16:38:00 Kirt Hall [facility] XR CHEST 1 VIEW 2024-03-29 14:05:00 Ирина Kennedy [facility] POC GLUCOSE UNSOLICITED RESULTS 2024-03-29 12:04:00 Yakov Cuadra [facility] POC ARTERIAL BLOOD GAS AND COMPREHENSIVE PANEL UNSOLICITED RESULTS 2024-03-29 11:31:00 Yakov Cuadra [facility] COMPLETE BLOOD COUNT W/DIFF AND PLATELET 2024-03-29 08:57:00 Yakov Cuadra [facility] COMPLETE BLOOD COUNT 2024-03-29 08:57:00 Yakov Cuadra [facility] AUTOMATED DIFFERENTIAL 2024-03-29 08:57:00 Yakov Cuadra [facility] POC GLUCOSE UNSOLICITED RESULTS 2024-03-29 07:22:00 Yakov Cuadra [facility] PREPARE RBC 2024-03-29 03:51:22 John Jeffers [facility] Transfuse RBC 2024-03-29 03:49:00 John Jeffers [facility] POC GLUCOSE UNSOLICITED RESULTS 2024-03-29 03:40:00 Yakov Cuadra [facility] POTASSIUM LEVEL 2024-03-29 03:31:00 KinjalMary haynesisrael [facility] TROPONIN I HIGH SENSITIVITY (SINGLE ORDER) 2024-03-29 03:31:00 Yakov Cuadra [facility] POC ARTERIAL BLOOD GAS AND COMPREHENSIVE PANEL UNSOLICITED RESULTS 2024-03-29 02:04:00 Yakov Cuadra [facility] XR CHEST 1 VIEW 2024-03-29 01:42:00 Isaac BondIvettedon Sims [facility] TROPONIN I HIGH SENSITIVITY CARESET (1ST HR) 2024-03-29 01:29:00 John Jeffers [facility] COMPREHENSIVE METABOLIC PANEL 2024-03-29 01:27:00 Jayla Grewal Christopher [facility] VANCOMYCIN LEVEL 2024-03-29 01:27:00 Madyson Sutton [facility] LACTATE DEHYDROGENASE 2024-03-29 01:27:00 Yakov Cuadra [facility] TYPE AND SCREEN 2024-03-29 01:27:00 Madyson Sutton [facility] COMPLETE BLOOD COUNT W/DIFF AND PLATELET 2024-03-29 01:27:00 Jayla Grewal [facility] CALCIUM LEVEL IONIZED WHOLE BLOOD 2024-03-29 01:27:00 Yakov Cuadra [facility] PT AND PTT 2024-03-29 01:27:00 Yakov Cuadra [facility] COMPLETE BLOOD COUNT 2024-03-29 01:27:00 Jayla Grewal Christopher [facility] AUTOMATED DIFFERENTIAL 2024-03-29 01:27:00 Jayla Grewal Christopher [facility] POC VENOUS BLOOD GAS AND COMPREHENSIVE PANEL UNSOLICITED RESULTS 2024-03-29 01:21:00 Yakov Cuadra [facility] POC GLUCOSE UNSOLICITED RESULTS 2024-03-29 00:42:00 Yakov Cuadra [facility] Troponin I High Sensitivity Panel with 1 hour reflex 2024-03-29 00:00:00 [facility] Troponin I High Sensitivity Careset (Baseline) 2024-03-29 00:00:00 [facility] Basic Metabolic Panel 2024-03-29 00:00:00 [facility] Calcium Level Ionized Whole Blood 2024-03-29 00:00:00 [facility] MAGNESIUM LEVEL 2024-03-28 22:20:00 Yakov Cuadra [facility] PHOSPHORUS LEVEL 2024-03-28 22:20:00 Yakov Cuadra [facility] POTASSIUM LEVEL 2024-03-28 22:20:00 Mary Tolentino [facility] COMPLETE BLOOD COUNT W/DIFF AND PLATELET 2024-03-28 22:20:00 Arturo Guillen [facility] COMPLETE BLOOD COUNT 2024-03-28 22:20:00 Arturo Guillen Chavo [facility] AUTOMATED DIFFERENTIAL 2024-03-28 22:20:00 Arturo Guillen [facility] POC GLUCOSE UNSOLICITED RESULTS 2024-03-28 16:36:00 Yakov Cuadra [facility] US LIVER W VESSELS DOPPLER 2024-03-28 12:20:00 Mary Tolentino [facility] US RENAL COMPLETE 2024-03-28 12:10:00 Ирина Kennedy Radha [facility] STREP PNEUMONIAE ANTIGEN 2024-03-28 09:54:00 Ирина Kennedy [facility] RESPIRATORY CULTURE W/GRAM STAIN 2024-03-28 09:54:00 Ирина Kennedy [facility] VANCOMYCIN LEVEL 2024-03-28 09:53:00 Madyson Sutton [facility] FERRITIN 2024-03-28 09:53:00 Soo Gregg [facility] ACUTE HEPATITIS PANEL 2024-03-28 09:53:00 Mary Tolentino [facility] PROCALCITONIN LEVEL 2024-03-28 09:53:00 Ирина Kennedy [facility] IRON + TRANSFERRIN + TIBC 2024-03-28 09:53:00 Soo Gregg [facility] HEPATITIS C ANTIBODY W/HCV RNA PCR IF INDICATED 2024-03-28 09:53:00 Kinjaldallas Kyrieisrael Teshabessy [facility] MRSA BY PCR 2024-03-28 09:52:00 Brent Иринаbranden Garcia [facility] POC GLUCOSE UNSOLICITED RESULTS 2024-03-28 08:00:00 Yakov Cuadra [facility] TRANSTHORACIC ECHO (TTE) COMPLETE W/ CONTRAST 2024-03-28 07:39:20 Jayla Grewal [facility] XR CHEST 1 VIEW 2024-03-28 06:44:00 Ivette Bond [facility] URINE CULTURE 2024-03-28 05:55:00 Ivette Bond [facility] UA WITH CULTURE IF INDICATED 2024-03-28 05:55:00 Ivette Bond [facility] BLOOD CULTURE 2024-03-28 05:49:00 Madyson Sutton [facility] COMPREHENSIVE METABOLIC PANEL 2024-03-28 01:59:00 Uri [facility] MAGNESIUM LEVEL 2024-03-28 01:59:00 John Jeffers [facility] PHOSPHORUS LEVEL 2024-03-28 01:59:00 [facility] W/DIFF AND PLATELET 2024-03-28 01:59:00 Uri [facility] CALCIUM LEVEL IONIZED WHOLE BLOOD 2024-03-28 01:59:00 John Jeffers [facility] COMPLETE BLOOD COUNT 2024-03-28 01:59:00 Uri [facility] AUTOMATED DIFFERENTIAL 2024-03-28 01:59:00 Uri [facility] MANUAL DIFFERENTIAL (FOR CBC W/MAN DIFF) 2024-03-28 01:59:00 John Jeffers [facility] Complete Blood Count w/Manual Diff 2024-03-28 00:00:00 [facility] Complete Blood Count 2024-03-28 00:00:00 [facility] Protein and Creatinine Random Urine with Ratio 2024-03-28 00:00:00 [facility] Sodium Level Urine 2024-03-28 00:00:00 [facility] Chloride Level Urine 2024-03-28 00:00:00 [facility] Potassium Level Urine 2024-03-28 00:00:00 [facility] Creatinine Urine 2024-03-28 00:00:00 [facility] Osmolality Urine 2024-03-28 00:00:00 [facility] Basic Metabolic Panel AM 2024-03-28 00:00:00 [facility] XR ABDOMEN 1 VIEW 2024-03-27 17:40:30 Mary Tolentino [facility] POC GLUCOSE UNSOLICITED RESULTS 2024-03-27 17:10:00 Yakov Cuadra [facility] LEFT HEART CATH 2024-03-27 16:19:56 Leonila Olsen [facility] POC ARTERIAL BLOOD GAS AND COMPREHENSIVE PANEL UNSOLICITED RESULTS 2024-03-27 15:56:00 Yakov Cuadra [facility] POC ACTIVATED CLOTTING TIME UNSOLICITED RESULTS 2024-03-27 15:55:00 Yakov Cuadra [facility] POCT Glucose 2024-03-27 15:33:59 Ирина Kennedy [facility] POC GLUCOSE UNSOLICITED RESULTS 2024-03-27 15:31:00 Yakov Cuadra [facility] TROPONIN I HIGH SENSITIVITY CARESET (1ST HR) 2024-03-27 14:41:00 Saroj Hernández [facility] LACTIC ACID LEVEL 2024-03-27 12:23:00 Saroj Hernández [facility] Troponin I High Sensitivity Panel with 1 hour reflex 2024-03-27 12:23:00 Saroj Hernández [facility] TROPONIN I HIGH SENSITIVITY CARESET (BASELINE) 2024-03-27 12:23:00 Saroj Hernández [facility] LIPID PANEL W/CALCULATED LDL 2024-03-27 12:20:00 Hermann Birch [facility] HEMOGLOBIN A1C 2024-03-27 12:20:00 Mary Tolentino [facility] MAGNESIUM LEVEL 2024-03-27 12:20:00 AicMary haynes [facility] PHOSPHORUS LEVEL 2024-03-27 12:20:00 KinjalMary haynes [facility] POTASSIUM LEVEL 2024-03-27 12:20:00 RajanMaryhiisrael [facility] THYROID STIMULATING HORMONE W/ REFLEX FREE T4 2024-03-27 12:20:00 Richard Lobo [facility] TROPONIN I HIGH SENSITIVITY (SINGLE ORDER) 2024-03-27 12:20:00 Jayla Grewal [facility] POC GLUCOSE UNSOLICITED RESULTS 2024-03-27 12:01:00 Yakov Cuadra [facility] POC ARTERIAL BLOOD GAS AND COMPREHENSIVE PANEL UNSOLICITED RESULTS 2024-03-27 11:17:00 Yakov Cuadra [facility] BLOOD GAS, VENOUS 2024-03-27 08:37:00 Tricia Grant [facility] MAGNESIUM LEVEL 2024-03-27 08:37:00 Aicdallas Kyrieisrael Diya [facility] PHOSPHORUS LEVEL 2024-03-27 08:37:00 KinjalMary hayneshiisrael [facility] TROPONIN I HIGH SENSITIVITY (SINGLE ORDER) 2024-03-27 08:37:00 Tricia Grant [facility] BASIC METABOLIC PANEL 2024-03-27 08:37:00 Tricia Grant [facility] CORONAVIRUS (COVID-19) POONAM ICU/ISOLATION 2024-03-27 06:37:00 Tricia Grant [facility] BLOOD CULTURE 2024-03-27 04:29:00 Dahlia Mohr [facility] BLOOD GAS, ARTERIAL 2024-03-27 04:23:00 Dahlia Mohr [facility] ELECTROLYTE PANEL 2024-03-27 04:20:00 Dahlia Mohr [facility] BLOOD CULTURE 2024-03-27 04:20:00 Dahlia Mohr [facility] PROCALCITONIN LEVEL WITH REFLEX IF ABNORMAL 2024-03-27 04:20:00 Dahlia Mohr [facility] LACTIC ACID WITH 2 HOUR REFLEX 2024-03-27 04:20:00 Dahlia Mohr [facility] DRUG SCREEN URINE (8 DRUGS) 2024-03-27 04:10:00 Dahlia Mohr [facility] UA WITH CULTURE IF INDICATED 2024-03-27 04:10:00 Dhalia Mohr [facility] CT BRAIN WO IV CONTRAST 2024-03-27 03:30:00 Madisyn Prather [facility] CT CERVICAL SPINE WO IV CONTRAST 2024-03-27 03:30:00 Madisyn Prather [facility] CT CHEST ABDOMEN PELVIS W IV CONTRAST 2024-03-27 03:30:00 Dahlia Mohr [facility] PROTIME-INR 2024-03-27 03:28:00 Dahlia Mohr [facility] PTT 2024-03-27 03:28:00 Dahlia Mohr [facility] POTASSIUM WHOLE BLOOD 2024-03-27 03:17:00 Dahlia Mohr [facility] HEPATIC FUNCTION PANEL 2024-03-27 03:13:00 Dahlia Mohr [facility] TROPONIN I HIGH SENSITIVITY (SINGLE ORDER) 2024-03-27 03:13:00 Dahlia Mohr [facility] XR ABDOMEN 1 VIEW 2024-03-27 02:55:00 Dahlia Mohr [facility] XR CHEST 1 VIEW 2024-03-27 02:53:00 Dahlia Mohr [facility] XR CHEST 1 VIEW 2024-03-27 02:50:00 Dahlia Mohr [facility] BLOOD GAS, VENOUS 2024-03-27 02:21:00 Dahlia Mohr [facility] ETHANOL LEVEL 2024-03-27 02:20:00 Dahlia Mohr [facility] CREATINE KINASE (CK TOTAL) 2024-03-27 02:20:00 Dahlia Mohr [facility] TYPE AND SCREEN 2024-03-27 02:20:00 Dahlia Mohr [facility] COMPLETE BLOOD COUNT W/DIFF AND PLATELET 2024-03-27 02:20:00 Dahlia Mohr [facility] THROMBOELASTOGRAPH RAPID 2024-03-27 02:20:00 [facility] L[facility] WITH 2 HOUR REFLEX 2024-03-27 02:20:00 Dalhia Mohr [facility] COMPLETE BLOOD COUNT 2024-03-27 02:20:00 Dahlia Mohr [facility] AUTOMATED DIFFERENTIAL 2024-03-27 02:20:00 Dahlia Mohr [facility] BASIC METABOLIC PANEL 2024-03-27 02:20:00 Dahlia Mohr [facility] HC INSERT NON-TUNNEL CV CATH 2024-03-27 02:14:00 Madisyn Prather [facility] HC INSERT EMERGENCY ENDOTRACH AIRWAY 2024-03-27 02:14:00 Madisyn Prather [facility] HC INSERT CATH,ART,PERCUT,SHORTTERM 2024-03-27 02:14:00 Madisyn Prather [facility] UA with microscopic no culture 2024-03-27 00:00:00 [facility] POCT URINALYSIS 2024-03-22 19:19:00 Jaime Paris [facility] NOTICE OF PRIVACY PRACTICES 2023-05-19 16:46:49 Doctor Unassigned, [place] [facility] CONSENT/REFUSAL FOR DIAGNOSIS AND TREATMENT 2023-05-19 16:43:52 Doctor Unassigned, [place] [facility] FLU VACC ([id number]), 6 MO-64 YRS, .5ML, IM, QUAD (FLUCELVAX) 2023-04-07 13:55:17 Doctor Unassigned, [place] [facility] EXTERNAL PROVIDER RECORDS 2022-03-22 05:01:00 Doctor Unassigned, [place] [facility] Oxygen Therapy - Patient Type: Adult; Device: Nasal Cannula; Rate in liters per minute: 5 Lpm; Follow Respiratory Pathway: Yes [facility] Complete Blood Count w/Diff and Platelet AM [facility] ECG 12 lead [facility] Encounters Start Date/Time End Date/Time Encounter Type Admission Type Attending Clinicians Care Facility Care Department Encounter ID Source 2024-03-27 02:14:00 Inpatient Trauma Center DAHLIA MOHR VICTORIA OWEN, JOHN HERNANDEZ [facility] General Medicine [id number] [facility] 2021-03-30 15:17:44 Emergency [facility] [id number] [facility] 2024-08-22 09:43:00 2024-08-22 11:38:00 Emergency Shahbaz [facility], JOSE ALBERTO [facility]ERS [facility] ERT [id number] [facility] 2024-08-22 09:43:00 2024-08-22 11:38:00 Emergency Jose Alberto Siu [facility] [id number] [facility] 2024-08-14 04:40:00 2024-08-14 06:05:00 Emergency X JOSE ALBERTO SIU DONNELL [facility] ERT [id number] [facility] 2024-06-25 00:00:00 2024-06-25 10:32:39 Refill Hedy Dempsey [facility]?[employer] [facility] [id number] [facility] 2024-06-16 00:00:00 2024-06-18 10:05:29 Refill Yaneth Hopson [facility]?[employer] [facility] [id number] [facility] 2024-06-05 08:30:00 2024-06-06 15:10:00 Inpatient EM Concepcion Tierney [facility] [id number] [facility] 2024-06-05 00:56:00 2024-06-05 06:24:00 Emergency EM Missy Zhou [facility] [id number] [facility] 2024-05-06 05:22:00 2024-05-06 05:22:00 Outpatient [facility]cepcion Tierney [facility] [id number] [facility] 2024-05-05 15:24:00 2024-05-05 22:06:00 Emergency EM José Dickson [facility] MELY [id number] [facility] 2024-05-05 17:38:00 2024-05-05 17:38:00 Outpatient oJsé Dickson HCACL LABO [id number] 49 [facility] 2024-04-30 14:23:00 2024-05-03 17:55:00 Inpatient EM Winifred Marion HCAPM INTE.02 [id number] [facility] 2024-04-19 16:11:00 2024-04-24 19:45:00 Inpatient EM Mushtaq Mayorga HCAPM INTE.02 [id number] [facility] 2024-04-23 00:00:00 2024-04-23 13:11:30 Referral Triage Yakov Wilson Brittany Larry D. [facility] [id number] [id number] Memoria l Jeronimo [facility] 2024-03-27 02:14:00 2024-04-11 16:56:00 Inpatient Elective [facility] [id number] [facility] 2024-03-27 02:14:00 2024-04-11 16:56:00 Hospital Encounter Dahlia Mohr Brittany McDonald Bower, Rachel Chevraux Dhoble, Abhijeet Larry D. [facility] 1.840.114 [id number] [id number] Memoria l Jeronimo [facility] 2024-04-18 16:40:15 2024-04-09 23:59:00 Inpatient [facility] E[facility]VI [id number] [facility] 2024-04-09 14:35:00 2024-04-09 23:59:00 Hospital Encounter Resource, Hvi V Ecg Icu Ecg Dontae Quintanilla [facility] 1.840.114 [id number] [id number] Memoria l Jeronimo Epic 2024-04-18 16:38:51 2024-04-07 23:59:00 Inpatient [facility] [id number] [facility] 2024-04-07 12:20:00 2024-04-07 23:59:00 Hospital Encounter Resource, Hvi V Ecg Icu Ecg Dontae [facility] [id number] [id number] Alfonso Daniels [facility] 2024-03-29 17:44:55 2024-03-27 02:13:00 Outpatient Elective [facility] [id number] [facility] 2024-03-27 01:15:00 2024-03-27 02:13:00 Hospital Encounter Services, [facility] [id number] Alfonso Daniels [facility] 2024-03-23 13:00:00 2024-03-23 13:00:00 Outpatient DEBBIE AGUIRRE [facility] [id number] [facility] 2024-03-22 14:00:00 2024-03-22 14:20:00 Urgent Care Jaime Paris Unknown, Attending [facility] MEDICAL OFFICE BUILDING 1.2.840.114 350.1.13.10 4.2.7.2.686 [id number] [facility] 2024-03-22 14:00:00 2024-03-22 14:00:00 Outpatient JAIME REDMAN [facility] [id number] [facility] 2024-03-12 09:00:00 2024-03-12 09:38:37 Outpatient HEDY ACEVEDO [facility] [id number] [facility] 2024-03-12 09:00:00 2024-03-12 09:38:37 Urgent Care Hedy Dempsey Unknown, Attending [facility] MEDICAL OFFICE BUILDING 1.2.840.114 350.1.13.10 4.2.7.2.686 [id number] [facility] 2024-03-10 00:00:00 2024-03-12 08:19:59 Refill Sarwat Jaden Dumontvangie [facility] MEDICAL OFFICE BUILDING 1.2.840.114 350.1.13.10 4.2.7.2.686 [id number] 044 [id number] [facility] 2024-02-08 00:00:00 2024-02-08 16:48:36 Refill Mark Anthony Yaneth [facility] MEDICAL OFFICE BUILDING 1.2.840.114 350.1.13.10 4.2.7.2.686 [id number] 044 [id number] [facility] 2024-01-26 00:00:00 2024-01-27 08:29:02 Refill Bailey Catherine [facility] MEDICAL OFFICE BUILDING 1.2.840.114 350.1.13.10 4.2.7.2.686 [id number] 044 [id number] [facility] 2024-01-11 15:15:00 2024-01-11 15:30:00 Office Visit Yaneth Hopson [facility] MEDICAL OFFICE BUILDING 1.2.840.114 350.1.13.10 4.2.7.2.686 [id number] 044 [id number] [facility] 2024-01-11 15:15:00 2024-01-11 15:15:00 Outpatient YANETH TENORIO [facility] [id number] [facility] 2024-01-05 10:00:00 2024-01-05 10:00:00 Outpatient YANETH TENORIO [facility] [id number] [facility] 2024-01-03 00:00:00 2024-01-04 08:32:36 [facility] BU[facility] 1.2.840.114 350.1.13.10 4.2.7.2.686 [id number] 044 [id number] [facility] 2023-12-26 00:00:00 2023-12-27 06:49:51 Telephone [facility] 1.2.840.114 350.1.13.10 4.2.7.2.686 [id number] 044 [id number] [facility] 2023-11-29 00:00:00 2023-11-29 09:34:54 RefYaneth Alexis [facility] BU[facility] 1.2.840.114 350.1.13.10 4.2.7.2.686 [id number] 044 [id number] [facility] 2023-10-28 00:00:00 2023-10-31 07:53:42 [facility]u [facility] [employer] [facility] MEDICAL OFFICE BUILDING 1.2.840.114 350.1.13.10 4.2.7.2.686 [id number] [id number] [facility] 2023-09-30 08:30:00 2023-09-30 08:30:00 Outpatient DIO VELAZQUEZ [facility] [id number] [facility] 2023-09-26 00:00:00 2023-09-26 00:00:00 Refshu Hopson [facility] VINCE?[employer] [facility] MEDICAL OFFICE BUILDING 1.2.840.114 350.1.13.10 4.2.7.2.686 [id number] 044 [id number] [facility] 2023-09-15 12:15:00 2023-09-15 14:27:16 Outpatient YANETH TENORIO [facility] [id number] [facility] 2023-09-15 12:15:00 2023-09-15 14:27:16 Office Visit Yaneth Hopson [facility] 1.2.840.114 350.1.13.10 4.2.7.2.686 [id number] 044 [id number] [facility] 2023-08-29 00:00:00 2023-08-29 00:00:00 [facility] BU[facility] 1.2.840.114 350.1.13.10 4.2.7.2.686 [id number] 044 [id number] [facility] 2023-08-03 00:00:00 2023-08-03 00:00:00 Refill Mark Anthony Yaneth [facility] MEDICAL OFFICE BUILDING 1.2.840.114 350.1.13.10 4.2.7.2.686 [id number] 044 [id number] [facility] 2023-07-25 00:00:00 2023-07-25 00:00:00 Refill Mark Anthony Yaneth [facility] 1.2.840.114 350.1.13.10 4.2.7.2.686 [id number] 044 [id number] [facility] 2023-06-18 00:00:00 2023-06-18 00:00:00 Refill Mark Anthony [facility] VINCE?[facility] MEDICAL OFFICE BUILDING 1.2.840.114 350.1.13.10 4.2.7.2.686 [id number] 044 [id number] [facility] 2023-05-19 11:09:00 2023-05-19 12:08:00 Emergency X Pepe BROOKE [facility] [id number] [facility] 2023-05-19 11:09:00 2023-05-19 12:08:00 Emergency Pepe Brooke [facility] 1.840.114 350.1.13.10 4.2.7.2.686 [id number] 084 [id number] [facility] 2023-05-12 00:00:00 2023-05-12 00:00:00 [facility] 1.84.114 350.1.13.10 4.2.7.2.686 [id number] 044 [id number] [facility] 2023-04-07 08:20:00 2023-04-07 08:40:00 Imm/Inj Visit Nurse, Garfield Cohen Mark Anthony [facility]?[employer] MEDICAL OFFICE BUILDING 1.84.114 350.1.13.10 4.2.7.2.686 [id number] 044 [id number] [facility] 2023-04-07 07:45:00 2023-04-07 07:56:09 Outpatient R YANETH HOPSON [facility] [id number] [facility] 2023-04-07 07:45:00 2023-04-07 07:56:09 Office Visit [facility] OFF[facility] BUILD[facility] 1.84.114 350.1.13.10 4.2.7.2.686 [id number] 044 [id number] [facility] 2023-03-29 00:00:00 2023-03-29 00:00:00 Outpatient GC_[id number] diyala_S PRIV PRIV [id number] [facility] 2023-02-15 00:00:00 2023-02-15 00:00:00 Refill Mark Anthony [facility] 1.84.114 350.1.13.10 4.2.7.2.686 [id number] 044 [id number] [facility] 2023-01-17 00:00:00 2023-01-17 00:00:00 Refill Sam Renae M [facility]?[employer] [facility] MEDICAL OFFICE BUILDING 1.2.840.114 350.1.13.10 4.2.7.2.686 [id number] 044 [id number] [facility] 2022-12-17 00:00:00 2022-12-17 00:00:00 Refill Sarwat Jaden Dumontvangie [facility] MEDICAL OFFICE BUILDING 1.2.840.114 350.1.13.10 4.2.7.2.686 [id number] 044 [id number] [facility] 2022-11-15 00:00:00 2022-11-15 00:00:00 Refill Mark Anthony Yaneth [facility] MEDICAL OFFICE BUILDING 1.2.840.114 350.1.13.10 4.2.7.2.686 [id number] 044 [id number] [facility] 2022-10-19 00:00:00 2022-10-19 00:00:00 Refill Mark Anthony Yaneth [facility] MEDICAL OFFICE BUILDING 1.2.840.114 350.1.13.10 4.2.7.2.686 [id number] 044 [id number] [facility] 2022-10-11 00:00:00 2022-10-11 00:00:00 Telephone Bailey Catherine [facility]?[employer] [facility] MEDICAL OFFICE BUILDING 1.2.840.114 350.1.13.10 4.2.7.2.686 [id number] 044 [id number] [facility] 2022-10-06 07:41:58 2022-10-06 23:59:00 Outpatient R BAILEY CATHERINE [facility] [id number] [facility] 2022-10-06 07:00:00 2022-10-06 07:40:23 Office Visit Bailey Catherine [facility] MEDICAL OFFICE BUILDING 1.840.114 350.1.13.10 4.2.7.2.686 [id number] 044 [id number] [facility] 2022-10-05 00:00:00 2022-10-05 00:00:00 Letter (Out) Joanne Travis [facility] 1.840.114 350.1.13.10 4.2.7.2.686 [id number] [facility] 2022-10-04 09:15:00 2022-10-04 09:30:00 Laboratory Only Only, Ang Db Test Unknown, Attending [facility]?[employer] [facility] MEDICAL OFFICE BUILDING 1.84.114 350.1.13.10 4.2.7.2.686 [id number] [facility] 2022-10-04 09:15:00 2022-10-04 09:24:15 Outpatient HEDY ACEVEDO [facility] [id number] [facility] 2022-09-16 00:00:00 2022-09-16 00:00:00 Jaden Yeh [facility] V[facility]CE?[employer] [facility] MEDICAL OFFICE BUILDING 1.114 350.1.13.10 4.2.7.2.686 [id number] 044 [id number] [facility] 2022-08-16 00:00:00 2022-08-16 00:00:00 Jaden Yeh [facility]?[employer] [facility] MEDICAL OFFICE BUILDING 1..114 350.1.13.10 4.2.7.2.686 [id number] 044 [id number] [facility] 2022-08-12 14:45:00 2022-08-12 15:00:00 Office Visit Yaneth Hopson [facility]?[employer] [facility] MEDICAL OFFICE BUILDING 1.840.114 350.1.13.10 4.2.7.2.686 [id number] 044 [id number] [facility] 2022-08-12 14:45:00 2022-08-12 14:45:00 Outpatient R YANETH HOPSON [facility] [id number] [facility] 2022-08-02 00:00:00 2022-08-02 00:00:00 [facility] [facility] MEDICAL OFFICE BUILDING 1.2840.114 350.1.13.10 4.2.7.2.686 [id number] 044 [id number] [facility] 2022-07-30 00:00:00 2022-07-30 00:00:00 Refill Yaneth [facility] MEDICAL OFFICE BUILDING 1.2840.114 350.1.13.10 4.2.7.2.686 [id number] 044 [id number] [facility] 2022-06-30 00:00:00 2022-06-30 00:00:00 Refill Yaneth Hopson [facility]?[employer] [facility] MEDICAL OFFICE BUILDING 1.20.114 350.1.13.10 4.2.7.2.686 [id number] 044 [id number] [facility] 2022-06-03 00:00:00 2022-06-03 00:00:00 Refill Yaneth Hopson [facility] MEDICAL OFFICE BUILDING 1.2840.114 350.1.13.10 4.2.7.2.686 [id number] 044 [id number] [facility] 2022-05-04 00:00:00 2022-05-04 00:00:00 Refill Jaden Fam [facility] [employer] [facility] MEDICAL OFFICE BUILDING 1.2840.114 350.1.13.10 4.2.7.2.686 [id number] 044 [id number] [facility] 2022-04-07 00:00:00 2022-04-07 00:00:00 Refill Jaden Fam [facility] MED[facility] OFFICE BUILDING 1.2840.114 350.1.13.10 4.2.7.2.686 [id number] 044 [id number] [facility] 2022-03-22 00:00:00 2022-03-22 00:00:00 Orders Only Doctor Unassigned, [place] [facility] 1.2840.114 350.1.13.10 4.2.7.2.686 [id number] [facility] 2022-03-09 00:00:00 2022-03-09 00:00:00 Refill Jaden Fam [facility] 1.2840.114 350.1.13.10 4.2.7.2.686 [id number] 044 [id number] [facility] 2022-02-04 00:00:00 2022-02-04 00:00:00 Refill Mark Anthony [facility] OFF[facility] BUILD[facility] 1.2840.114 350.1.13.10 4.2.7.2.686 [id number] 044 [id number] [facility] 2022-01-01 00:00:00 2022-01-01 00:00:00 Refill Yaneth Hopson [facility] BUILD[facility] 1.2840.114 350.1.13.10 4.2.7.2.686 [id number] 044 [id number] [facility] 2021-12-30 13:45:00 2021-12-30 14:00:00 Office Visit Yaneth [facility] OFF[facility] BUILDING 1.2840.114 350.1.13.10 4.2.7.2.686 [id number] 044 [id number] [facility] 2021-12-30 13:45:00 2021-12-30 13:45:00 Outpatient R YANETH HOPSON [facility] [id number] [facility] 2021-12-30 00:00:00 2021-12-30 00:00:00 Orders Only Doctor Unassigned, [place] [facility] 1.2840.114 350.1.13.10 4.2.7.2.686 [id number] [facility] 2021-12-29 00:00:00 2021-12-29 00:00:00 Letter (Out) Mark Anthony Yaneth [facility] MEDICAL OFFICE BUILDING 1.2840.114 350.1.13.10 4.2.7.2.686 [id number] 044 [id number] [facility] 2021-12-22 00:00:00 2021-12-22 00:00:00 Telephone Mark Anthony Yaneth [facility] MEDICAL OFFICE BUILDING 1.840.114 350.1.13.10 4.2.7.2.686 [id number] 044 [id number] [facility] 2021-12-18 00:00:00 2021-12-18 00:00:00 Refill Hopson Yaneth [facility] MEDICAL OFFICE BUILDING 1.2840.114 350.1.13.10 4.2.7.2.686 [id number] 044 [id number] [facility] 2021-12-14 00:00:00 2021-12-14 00:00:00 Refill [facility] [facility] MEDICAL OFFICE BUILDING 1.2840.114 350.1.13.10 4.2.7.2.686 [id number] 044 [id number] [facility] 2021-11-15 00:00:00 2021-11-15 00:00:00 Refill [facility] MEDICAL OFFICE BUILDING 1.2.840.114 350.1.13.10 4.2.7.2.686 [id number] 044 [id number] [facility] 2021-10-17 00:00:00 2021-10-17 00:00:00 Brii Hopson [facility] 1.840.114 350.1.13.10 4.2.7.2.686 [id number] 044 [id number] [facility] 2021-09-17 00:00:00 2021-09-17 00:00:00 Brii Hopson [facility] OFFICE BUILDING ONE 1.0.114 350.1.13.10 4.2.7.2.686 [id number] 044 [id number] [facility] 2021-08-21 00:00:00 2021-08-21 00:00:00 Brii Hopson [facility] OFFICE BUILDING ONE 1.0.114 350.1.13.10 4.2.7.2.686 [id number] 044 [id number] [facility] 2021-08-13 00:00:00 2021-08-13 00:00:00 Brii Hopson [facility] OFFICE BUILDING ONE ..114 350.1.13.10 4.2.7.2.686 [id number] 044 [id number] [facility] 2021-08-10 00:00:00 2021-08-10 00:00:00 Case Management Paula Stephens 1.840.114 350.1.13.10 4.2.7.2.686 [id number] [facility] 2021-07-19 00:00:00 2021-07-19 00:00[facility] 1.114 350.1.13.10 4.2.7.2.686 [id number] 044 [id number] [facility] 2021-06-26 10:30:00 2021-06-26 10:45:00 Medical Office Scheduler Visit Pob, Adc Lab Main Yaneth Hopson [facility] BUILDING 1.114 350.1.13.10 4.2.7.2.686 [id number] [facility] 2021-06-26 10:30:00 2021-06-26 10:30:00 Outpatient YANETH TENORIO [facility] [id number] [facility] 2021-06-26 00:00:00 2021-06-26 00:00:00 Orders Only Doctor Unassigned, [place] [facility] 1.114 350.1.13.10 4.2.7.2.686 [id number] [facility] 2021-06-25 15:00:00 2021-06-25 15:15:00 Office Visit Yaneht Hopson [facility] OFFICE BUILDING 1.114 350.1.13.10 4.2.7.2.686 [id number] 044 [id number] [facility] 2021-06-25 15:00:00 2021-06-25 15:09:58 Outpatient YANETH TENORIO [facility] [id number] [facility] 2021-06-25 15:00:00 2021-06-25 15:00:00 Outpatient YANETH TENORIO [facility] [id number] [facility] 2021-06-21 00:00:00 2021-06-21 00:00:00 Refill Yaneth Hopson [facility] OFFICE BUILDING ONE 1.114 350.1.13.10 4.2.7.2.686 [id number] 044 [id number] [facility] 2021-05-19 00:00:00 2021-05-19 00:00:00 Refill Yaneth Hopson [facility] OFFICE BUILDING ONE 1.2840.114 350.1.13.10 4.2.7.2.686 [id number] 044 [id number] [facility] 2021-04-20 00:00:00 2021-04-20 00:00:00 Refill Mark Anthony [facility] OFFICE BUILDING ONE 1.840.114 350.1.13.10 4.2.7.2.686 [id number] 044 [id number] [facility] 2021-03-20 00:00:00 2021-03-20 00:00:00 Refill Mark Anthony [facility] Office Building One 1.840.114 350.1.13.10 4.2.7.2.686 [id number] 044 [id number] [facility] 2021-02-16 00:00:00 2021-02-16 00:00:00 Refill Mark Anthony Yaneth [facility] Office Building One 1.2840.114 350.1.13.10 4.2.7.2.686 [id number] 044 [id number] [facility] 2021-02-09 13:32:33 2021-02-09 13:47:33 Office Visit Yaneth Hopson [facility] Vince?[facility] 1.2840.114 350.1.13.10 4.2.7.2.686 [id number] 044 [id number] [facility] 2021-02-09 13:45:00 2021-02-09 13:45:00 Outpatient R YANETH HOPSON [facility] [id number] [facility] 2021-02-09 00:00:00 2021-02-09 00:00:00 Orders Only Doctor Unassigned, [place] [facility] 1.2.840.114 350.1.13.10 4.2.7.2.686 [id number] [id number] [facility] 2021-01-20 00:00:00 2021-01-20 00:00:00 Refshu Hopson [facility] Office Building One 1.840.114 350.1.13.10 4.2.7.2.686 [id number] 044 [id number] [facility] 2021-01-20 00:00:00 2021-01-20 00:00:00 Refill Mark Anthony [facility] Office Building One 1.0.114 350.1.13.10 4.2.7.2.686 [id number] 044 [id number] [facility] 2021-01-09 09:09:00 2021-01-09 10:06:00 Emergency Jose Alberto Siu [facility] 1.840.114 350.1.13.10 4.2.7.2.686 [id number] 084 [id number] [facility] 2021-01-09 08:21:05 2021-01-09 09:08:06 Office Visit Bailey Catherine [facility] Office Building One 1.840.114 350.1.13.10 4.2.7.2.686 [id number] 044 [id number] [facility] 2021-01-09 08:30:00 2021-01-09 08:30:00 Outpatient R BAILEY CATHERINE [facility] [id number] [facility] 2021-01-09 00:00:00 2021-01-09 00:00:00 Orders Only Doctor Unassigned, [place] [facility] 1.840.114 350.1.13.10 4.2.7.2.686 [id number] [facility] 2021-01-07 18:09:21 2021-01-07 18:29:21 Laboratory Only Lab, Adc Fam [facility] .114 350.1.13.10 4.2.7.2.686 [id number] 044 [id number] [facility] 2021-01-07 18:20:00 2021-01-07 18:20:00 Outpatient R KESHIRLEYHEDY [facility] [id number] [facility] 2021-01-07 00:00:00 2021-01-07 00:00:00 Letter (Out) Doctor Unassigned, [place] [facility] 1..114 350.1.13.10 4.2.7.2.686 [id number] 044 [id number] [facility] 2021-01-07 00:00:00 2021-01-07 00:00:00 Letter (Out) Doctor Unassigned, [place] [facility] 1.114 350.1.13.10 4.2.7.2.686 [id number] 044 [id number] [facility] 2020-12-21 00:00:00 2020-12-21 00:00:00 [facility] .114 350.1.13.10 4.2.7.2.686 [id number] 044 [id number] [facility] 2020-10-25 00:00:00 2020-10-25 00:00:00 [facility] .114 350.1.13.10 4.2.7.2.686 [id number] 044 [id number] [facility] 2020-10-22 14:19:08 2020-10-22 14:34:08 Office Visit Hopson [facility] Office Building One 1.2.840.114 350.1.13.10 4.2.7.2.686 [id number] 044 [id number] [facility] 2020-10-22 14:30:00 2020-10-22 14:30:00 Outpatient YANETH TENORIO [facility] [id number] [facility] 2020-10-22 00:00:00 2020-10-22 00:00:00 Orders Only Doctor Unassigned, [place] [facility] 1.2840.114 350.1.13.10 4.2.7.2.686 [id number] [facility] 2020-10-20 12:30:00 2020-10-20 12:30:00 Outpatient YANETH TENORIO [facility] [id number] [facility] 2020-10-10 00:00:00 2020-10-10 00:00:00 Refshu Ngers [facility] Office Building One 1..114 350.1.13.10 4.2.7.2.686 [id number] 044 [id number] [facility] 2020-10-07 00:00:00 2020-10-07 00:00:00 Refshu [facility] 1..114 350.1.13.10 4.2.7.2.686 [id number] [facility] 2020-10-06 00:00:00 2020-10-06 00:00:00 Refshu [facility] 1.0.114 350.1.13.10 4.2.7.2.686 [id number] [id number] [facility] 2020-08-28 00:00:00 2020-08-28 00:00:00 Refshu [facility] 1..114 350.1.13.10 4.2.7.2.686 [id number] [facility] 2020-07-30 00:00:00 2020-07-30 00:00:00 Refill Mark Anthony Yaneth [facility] 1.840.114 350.1.13.10 4.2.7.2.686 [id number] [facility] 2020-06-30 00:00:00 2020-06-30 00:00:00 Refill [facility] 1.0.114 350.1.13.10 4.2.7.2.686 [id number] [facility] 2020-06-02 00:00:00 2020-06-02 00:00:00 Refill Mark Anthony Yaneth [facility] 1.0.114 350.1.13.10 4.2.7.2.686 [id number] [id number] [facility] 2020-03-31 15:14:02 2020-03-31 15:59:37 Office Visit Yaneth Hopson [facility] 1..114 350.1.13.10 4.2.7.2.686 [id number] [facility] 2020-03-31 15:15:00 2020-03-31 15:15:00 Outpatient R YANETH HOPSON [facility] [id number] [facility] 2020-03-26 00:00:00 2020-03-26 00:00:00 Refill [facility] 1..114 350.1.13.10 4.2.7.2.686 [id number] [id number] [facility] 2020-03-24 00:00:00 2020-03-24 00:00:00 Refill [facility] 1.0.114 350.1.13.10 4.2.7.2.686 [id number] [id number] [facility] 2020-01-17 00:00:00 2020-01-17 00:00:00 Refill [facility] 1.0.114 350.1.13.10 4.2.7.2.686 [id number] [id number] [facility] 2020-01-02 10:30:00 2020-01-02 10:30:00 Outpatient R [facility] [id number] [facility] 2019-12-31 00:00:00 2019-12-31 00:00:00 [facility] 1.[facility].114 350.1.13.10 4.2.7.2.686 [id number] [id number] [facility] 2019-12-30 00:00:00 2019-12-30 00:00:[facility] 1.2.840.114 350.1.13.10 4.2.7.2.686 [id number] [facility] 2019-12-30 00:00:00 2019-12-30 00:00:00 [facility] 1.2840.114 350.1.13.10 4.2.7.2.686 [id number] [facility] 2019-12-28 15:57:08 2019-12-28 16:17:08 Laboratory Only Lab, Adc Fam Pob Jani Bowens [facility] Office Building One 1..114 350.1.13.10 4.2.7.2.686 [id number] [id number] [facility] 2019-12-28 16:00:00 2019-12-28 16:00:00 Outpatient JANI RAMSEY [facility] [id number] [facility] 2019-12-18 00:00:00 2019-12-18 00:00:00 [facility] 1.2.840.114 350.1.13.10 4.2.7.2.686 [id number] 044 [id number] 2019-12-18 00:00:00 2019-12-18 00:00:00 [facility] 1.2.840.114 350.1.13.10 4.2.7.2.686 [id number] 044 [id number] [facility] 2019-10-22 00:00:00 2019-10-22 00:00:00 [facility] 1.2.840.114 350.1.13.10 4.2.7.2.686 [id number] 044 [id number] 2019-10-22 00:00:00 2019-10-22 00:00:00 [facility] 1.2.840.114 350.1.13.10 4.2.7.2.686 [id number] [facility] 2019-10-05 00:00:00 2019-10-05 00:00:00 Refill [facility] 1.2.840.114 350.1.13.10 4.2.7.2.686 [id number] [id number] 2019-10-05 00:00:00 2019-10-05 00:00:00 [facility] 1.2.840.114 350.1.13.10 4.2.7.2.686 [id number] [id number] [facility] 2019-10-04 08:45:00 2019-10-04 08:45:00 Outpatient R YANETH HOPSON [facility] [id number] [facility] 2019-10-04 07:10:36 2019-10-04 07:25:36 Telemedici ne Visit Yaneth Hopson [facility] Building 1.2.840.114 350.1.13.10 4.2.7.2.686 [id number] 2019-10-04 07:10:36 2019-10-04 07:25:36 Telemedici ne Visit Yaneth Hopson [facility] Building 1.2.840.114 350.1.13.10 4.2.7.2.686 [id number] 044 [id number] [facility] 2019-09-27 00:00:00 2019-09-27 00:00:00 Telephone Yaneth Hopson [facility] Office Building One 1.2.840.114 350.1.13.10 4.2.7.2.686 [id number] 044 [id number] 2019-09-27 00:00:00 2019-09-27 00:00:00 Telephone Yaneth Hopson [facility] Office Building One 1.2.840.114 350.1.13.10 4.2.7.2.686 [id number] 044 [id number] [facility] 2019-09-25 08:11:42 2019-09-25 08:26:42 Medical Office Scheduler Visit 2, Adc Lab [facility] Building 1.2.840.114 350.1.13.10 4.2.7.2.686 [id number] 2019-09-25 08:11:42 2019-09-25 08:26:42 Medical Office Scheduler Visit 2, Adc Lab Yaneth Hopson [facility] Building 1.2.840.114 350.1.13.10 4.2.7.2.686 [id number] [facility] 2019-09-25 08:00:00 2019-09-25 08:00:00 Outpatient R YANETH HOPSON [facility] [id number] [facility] 2019-09-22 12:20:00 2019-09-22 12:20:00 Outpatient R UNKNOWN, SRAVANTHI [facility] [id number] [facility] 2019-09-04 00:00:00 2019-09-04 00:00:00 Refill Yaneth Hopson [facility] Office [facility] One 1.840.114 350.1.13.10 4.2.7.2.686 [id number] 2019-09-04 00:00:00 2019-09-04 00:00:00 RefYaneth Alexis [facility] Office Building One 1.840.114 350.1.13.10 4.2.7.2.686 [id number] [facility] 2019-08-16 00:00:00 2019-08-16 00:00:00 RefYaneth Alexis [facility] Office [facility] One 1.2840.114 350.1.13.10 4.2.7.2.686 [id number] 2019-08-16 00:00:00 2019-08-16 00:00:00 RefYaneth Alexis [facility] Office [facility] One 1.2840.114 350.1.13.10 4.2.7.2.686 [id number] [id number] 2019-08-16 00:00:00 2019-08-16 00:00:00 Refill Yaneth Hopson [facility] Office Building One 1.2840.114 350.1.13.10 4.2.7.2.686 [id number] 044 [id number] [facility] 2019-08-16 00:00:00 2019-08-16 00:00:00 Refill Mark Anthony [facility] Office Building One 1.2.840.114 350.1.13.10 4.2.7.2.686 [id number] 044 [id number] [facility] 2019-08-07 00:00:00 2019-08-07 00:00:00 Brii Hopson [facility] Office Building One 1.2.840.114 350.1.13.10 4.2.7.2.686 [id number] 2019-08-07 00:00:00 2019-08-07 00:00:00 Brii Hopson [facility] Building One 1.2.840.114 350.1.13.10 4.2.7.2.686 [id number] [facility] 2019-06-24 00:00:00 2019-06-24 00:00:00 Brii Hopson [facility] Office Building One 1.2.840.114 350.1.13.10 4.2.7.2.686 [id number] 2019-06-24 00:00:00 2019-06-24 00:00:00 Brii Hopson [facility] Office Building One 1.2.840.114 350.1.13.10 4.2.7.2.686 [id number] 044 [id number] [facility] 2019-05-21 00:00:00 2019-05-21 00:00:00 Orders Only Doctor Unassigned, [place] [facility] 1.2.840.114 350.1.13.10 4.2.7.2.686 [id number] 2019-05-21 00:00:00 2019-05-21 00:00:00 Orders Only Doctor Unassigned, [place] [facility] 1.2.840.114 350.1.13.10 4.2.7.2.686 [id number] [facility] 2019-05-02 00:00:00 2019-05-02 00:00:00 Orders Only Doctor Unassigned, [place] [facility] 1.2.840.114 350.1.13.10 4.2.7.2.686 [id number] 2019-05-02 00:00:00 2019-05-02 00:00:00 Orders Only Doctor Unassigned, [place] [facility] 1.2.840.114 350.1.13.10 4.2.7.2.686 [id number] [facility] 2019-01-18 00:00:00 2019-01-18 00:00:00 [facility] 1.2.840.114 350.1.13.10 4.2.7.2.686 [id number] 044 [id number] 2019-01-18 00:00:00 2019-01-18 00:00:00 [facility] 1.2.840.114 350.1.13.10 4.2.7.2.686 [id number] 044 [id number] [facility] Results Test Description Test Time Test Comments Results Result Co mments Source [facility] 16:17:37* Test Item Value Reference Range Interpretation Comme nts LIPASE (test code = 4687200545) 81 U/L 0-220 Lab Interpretation (test cod e = 86933-5) Normal [facility] ResourcesCT Abdomen pelvis wo [id number] 16:00:31CT Abdomen and Pelvis without contrast. CLINICAL HISTORY: Nausea and vomiting. TECHNIQUE: Multidetector helical CT acquisition was obtained from the lungbases to the greater trochanters without oral and IV contrast. ?The imageswere reviewed in lung, bone, and soft tissue windows. FINDINGS: ?Absenceof intravenous contrast limits evaluation of the solidorgans. Evaluation of the bowel is also limited by lack of oral contrast. Lower lungs: Minimal fibrosis in right lower lung. Small hiatal herniasuspected. Minimal pericardial effusion suspected. No pleural effusion.Cardiac permanent pacemakers and mitral annular calcifications noted. Liver, Gallbladder and Spleen: S/P cholecystectomy. Liver isenlarged, 22.1cm in length. Spleen is approximately 12 x 4.9 cm in size. No focal liverlesions appreciated. Small amount of fluid is seen surrounding the liverand there is minimal fluid noted surrounding the spleen. Peritoneum: ?No free air. Small amount of free fluid is seen in the pelvis.No lymphadenopathy. Pancreas and Adrenals: ?Unremarkable pancreas and right adrenal gland. Leftadrenal glandshowed 3.4 cm sized tumor of uncertain etiology but likelyincidental benign adenoma. Kidneys and Ureters: Multiple calcifications in both kidneys, mostlyvascular but some 2 to 3 mm nonobstructing stones also suspected. Nohydroureter or hydronephrosis. ? Vessels: Moderate diffuse atherosclerosis. Noabdominal aortic aneurysm. Retroperitoneum: No abnormal fluid. Subcentimeter lymph nodes are seenthroughout retroperitoneum, likely nonspecific reactive lymphadenopathy. Bowel: ?Mild constipation. Normal appendix visualized. Dense fecal materialis seen in the sigmoid colon. Minimal diverticulosis is noted in thesigmoid/descending colon without any acute changes. Small bowel gas patternis unremarkable. Food material and fluid is seen in the stomach which couldbe due to recent meal. Bladder ?and Reproductive Organs: Thickened bladder rai could be due toincomplete luminal distention. Bulky uterus noted for the patient's age. Bones: ?No acute bony abnormalities. Degenerative changes are seen in bothhip joints. Soft tissues: Congested appearance of the abdominal wall fat could besecondary moon disease. CONCLUSION:1. Hepatomegaly with small amount of fluid surrounding the liver, in thepelvis and minimal fluid surrounding the spleen.2. S/P cholecystectomy.3. Multiple calcifications in both kidneys, mostly vascular but some 2 to 3mm size nonobstructing stones also suspected. No hydronephrosis.4. 3.4 cm left adrenal gland tumor, of uncertain etiology but likelyincidental nonfunctioning adenoma. [facility] WITH [id number] 15:59:56* Test Item Value Reference Range Interpretation Comme nts WBC (test code = 6690-2) 7.94 4.30-11.10 RBC (test code = 789-8) 3.76 3.93-5.25 L HGB (test code = 718-7) 10.6 g/dL 11.6-15.0 L HCT (test code = 4544-3) 35.4 % 35.7-45.2 L MCV (test code = 787-2) 94.1 fL 80.6-95.5 MCH (test code = 785-6) 28.2 pg 25.9-32.8 MCHC (test code = 786-4) 29.9 g/dL 31.6-35.1 L RDW-SD (test code = 53843-3) 61.5 fL 39.0-49.9 H RDW-CV (test code = 788-0) 18.7 % 12.0-15.5 H PLT (test code = 777-3) 309 166-358 MPV (test code = 47242-5) 10.9 fL 9.5-12.9 NRBC/100 WBC (test code = 9167472606) 0.0 0.0-10.0 NRBC x10^3 (test code = 1568464930) See_Comment [Automated messa ge] The system which generated this result transmitted reference range: 10*3/?L. The reference range was not used to interpret this result as normal/abnormal. GRAN MAT (NEUT) % (test code = 770-8) 65.4 % IMM GRAN % (test code = 8218621845) 0.50 % LYMPH % (test code = 736-9) 21.3 % MONO % (test code = 5905-5) 10.3 % EOS % (test code = 713-8) 2.0 % BASO % (test code = 706-2) 0.5 % GRAN MAT x10^3(ANC) (test code = 4624477769) 5.19 10*3/uL 1.88-7.09 IMM GRAN x10^3 (test code = 7060629553) 0.04 10*3/uL 0.00-0.06 LYMPH x10^3 (test code = 731-0) 1.69 10*3/uL 1.32-3.29 MONO x10^3 (test code = 742-7) 0.82 10*3/uL 0.33-0.92 EOS x10^3 (test code = 711-2) 0.16 10*3/uL 0.03-0.39 BASO x10^3 (test code = 704-7) 0.04 10*3/uL 0.01-0.07 Lab Interpretation (test code = 58585-4) Abnormal [facility]MIS[facility]LLANEOUS LAB SEND [id number] 02:37:00 * Test Item Value Reference Range Interpretation Comme nts MISCELLANEOUS LAB SEND OUT (test code = MISCLABSO) APPROVED-IN LAB MOD Test: Fibersure testOrdering physician contact information: Deyvi Melchor Jr.,BORAZJUN4525-56-31 11:05:00* Test Item Value Reference Range Interpretation Comme nts GLUBED (test code = GLUBED) 301 MG/DL 70-105 HH [id number] 07:18:00* Test Item Value Reference Range Interpretation Comme nts GLUBED (test code = GLUBED) 175 MG/DL 70-105 H [id number] 20:51:00* Test Item Value Reference Range Interpretation Comme nts GLUBED (test code = GLUBED) 283 MG/DL 70-105 H [id number] 17:02:00* Test Item Value Reference Range Interpretation Comme nts GLUBED (test code = GLUBED) 221 MG/DL 70-105 H [id number] 15:12:00* Test Item Value Reference Range Interpretation Comme nts TROPONIN-I (test code = TROPI) 124.4 pg/mL 27.36-66.23 HH Critical Value r eported toFirst Name:JOSHUA Last Name:RESULTS READ BACK AND VERIFIEDby [id number], on 06/05/24, @ 1512. [id number] 14:52:00* Test Item Value Reference Range Interpretation Comme nts GLUBED (test code = GLUBED) 130 MG/DL 70-105 H [id number] 12:17:00* Test Item Value Reference Range Interpretation Comme nts TROPONIN-I (test code = TROPI) 123.5 pg/mL 27.36-66.23 HH Critical Value r eported toFirst Name:JOSHUA Last Name:BUSHRESULTS READ BACK AND VERIFIEDby [id number], on 06/05/24, @ 1217. AB HEPATITIS B [id number] 10:29:00* Test Item Value Reference Range Interpretation Comme nts AB HEPATITIS B SURFACE (test code = HBSAB) REACTIVE Nonreactive A AG HEPATITIS B [id number] 10:29:00* Test Item Value Reference Range Interpretation Comme nts AG HEPATITIS B SURFACE (test code = HBSAG) Nonreactive Nonreactive AB HEPATITIS B [id number] 10:29:00* Test Item Value Reference Range Interpretation Comme nts AB HEPATITIS B CORE (test co de = HBCAB) Nonreactive Nonreactive [id number] 09:54:00* Test Item Value Reference Range Interpretation Comme nts TROPONIN-I (test code = TROPI) 125.5 pg/mL 27.36-66.23 HH Critical Value r eported toFirst Name:EVON Last Name:K RESULTS READ BACK AND VERIFIEDby [id number], on 06/05/24, @ 0952. [id number] 09:01:00* Test Item Value Reference Range Interpretation Comme nts TROPONIN-I (test code = TROPI) 126.3 pg/mL 27.36-66.23 HH Critical Value r eported toFirst Name:JOSHUA Last Name:QUINCYRESULTS READ BACK AND VERIFIEDby [id number], on 06/05/24, @ 0901. BASIC METABOLIC [id number] 08:59:00* Test Item Value Reference Range Interpretation Comme nts SODIUM (test code = NA) 138 mmol/L 136-145 N POTASSIUM (test code = K) 3.4 mmol/L 3.5-5.1 L CHLORIDE (test code = CL) 98 mmol/l 98-107 N CARBON DIOXIDE (test code = CO2) 31 mmol/L 20-31 N GLUCOSE (test code = GLU) 110 mg/dL 74-106 H BLOOD UREA NITROGEN (test code = BUN) 19 mg/dL 9-23 N GLOMERULAR FILTRATION RATE (test code = GFR) 20 mL/min >60 L The Glomerular Filtration Rate is a calculated parameterbased on serum Creatinine, patient age and sex. GFR valuesless than 60 mL/min/1.73 square meters are indicative ofChronic Kidney Disease. Values less than 15 mL/min/1.73square meters indicate Kidney failure. The calculation forGFR is based on the CKD-EPI (2020) calculation. This formulais race indifferent and is the recommended formula for GFRby the National Kidney Foundation for Adults.The GFR will not calculate if the sex is unknown or if thepatient's age is <18 years. CREATININE (test code = CREAT) 2.60 mg/dL 0.55-1.02 H CALCIUM (test code = CA) 8.5 mg/dL 8.7-10.4 L LIPID PROFILE (CORONARY RISK)2024-06-05 08:59:00* Test Item Value Reference Range Interpretation Comme nts TRIGLYCERIDES (test code = TRIG) 104 mg/dL <150 N CHOLESTEROL (test code = CHOL) 76 mg/dL <200 N HDL CHOLESTEROL (test code = HDL) 39 mg/dL >60 L Please note New Reference Interval Jan 2023 REFERENCE INTERVALLow (undesirable, high risk): < 40 mg/dLHigh (desirable, low risk): >/= 60 mg/dL LIPOPROTEIN LDL (test code = LDLC) 17 mg/dL <100 N INTERPRETATIVE DATA:LDL Cholesterol: Reference RangesOptimal: <100 mg/dLNear Optimal: 100 -129 mg/dLBorderline High: 130 - 159 mg/dLHigh: 160 - 189 mg/dLVery High: = or > 190 mg/dL CORONARY RISK FACTOR (test code = RISK) 1.95 CHOL/HDL RISK MALE: 1/2 AVG 3.43 FEMALE: 1/2 AVG 3.27 AVG 4.97 AVG 4.44 2X AVG 9.55 2X AVG 7.05 3X AVG 23.39 3X AVG 11.04~~~~~~~~~~~~~~~~~ ~~~~~~~~~~~~~~~~~~~~~~ ~~~~~~~~~~~~~~~~~~~~~N ational Cholesterol Education (NCEP) Guidelines:~~~~~~~~~~~ ~~~~~~~~~~~~~~~~~~~~~~ ~~~~~~~~~~~~~~~~~~~~~~ ~~~~~ HDL Cholesterol<40mg/dL: HDL Cholesterol (Major risk factor for CHD)>60mg/dL: HDL Cholesterol (Negative risk factor for CHD)40-59mg/dL: Borderline Risk LDL Cholesterol<100mg/dL : Desirable LDL-C sefvufhmbzdtu889-077th /dL: Borderline High Risk LDL-C yagsfosuzprdn883-613zh /dL: High risk LDL-C concentration HDL-LDL Cholesterol is affected by a number of factors suchas smoking, age and sex.~~~~~~~~~~~~~~~~~~ ~~~~~~~~~~~~~~~~~~~~~~ ~~~~~~~~~~~~~~~~~~~~ B-TYPE NATRIURETIC [id number] 08:59:00* Test Item Value Reference Range Interpretation Comme nts B-TYPE NATRIURETIC PEPTIDE ( test code = BNP) 600 pg/mL <100 H CBC W/O [id number] 08:43:00* Test Item Value Reference Range Interpretation Comme nts WHITE BLOOD CELL (test code = WBC) 9.3 x10 3/uL 4.8-10.8 N RED BLOOD CELL (test code = RBC) 3.40 x10 6/uL 4.20-5.40 L HEMOGLOBIN (test code = HGB) 8.4 g/dL 12.0-16.0 L HEMATOCRIT (test code = HCT) 29.1 % 37.0-47.0 L MEAN CELL VOLUME (test code = MCV) 85.6 fL 81.0-99.0 N MEAN CELL HGB (test code = MCH) 24.7 pg 27-31 L MEAN CELL HGB CONCENTRATION (test code = MCHC) 28.9 G/DL 33-36.5 L RED CELL DISTRIBUTION WIDTH (test code = RDW) 17.5 % 12.9-16.9 H PLATELET COUNT (test code = PLT) 298 x10 3/uL 150-440 N BASIC METABOLIC [id number] 02:24:00* Test Item Value Reference Range Interpretation Comme nts SODIUM (test code = NA) 136 mmol/L 136-145 N POTASSIUM (test code = K) 3.7 mmol/L 3.4-5.0 N CHLORIDE (test code = CL) 97 mmol/L 98-107 L CARBON DIOXIDE (test code = CO2) 34 mmol/L 21-32 H ANION GAP (test code = GAP) 5 GAP calc 4-15 N GLUCOSE (test code = GLU) 185 MG/DL 70-110 H BLOOD UREA NITROGEN (test code = BUN) 20 MG/DL 7-18 H GLOMERULAR FILTRATION RATE (test code = GFR) 19 estGFR >60 L The Glomerular Filtration Rate is a calculated parameterbased on serum Creatinine, patient age and sex. GFR valuesless than 60 mL/min/1.73 square meters are indicative ofChronic Kidney Disease. Values less than 15 mL/min/1.73square meters indicate Kidney failure. The calculation forGFR is based on the CKD-EPI (2020) calculation. This formulais race indifferent and is the recommended formula for GFRby the National Kidney Foundation for Adults.The GFR will not calculate if the sex is unknown or if thepatient's age is <18 years. CREATININE (test code = CREAT) 2.7 MG/DL 0.6-1.0 H CALCIUM (test code = CA) 9.6 MG/DL 8.5-10.1 N HEPATIC FUNCTION [id number] 02:24:00* Test Item Value Reference Range Interpretation Comme nts TOTAL PROTEIN (test code = PROT) 7.7 G/DL 6.4-8.2 N ALBUMIN (test code = ALB) 2.7 G/DL 3.4-5.0 L BILIRUBIN TOTAL (test code = BILT) 0.4 MG/DL 0.0-1.0 N BILIRUBIN DIRECT (test code = BILD) 0.2 MG/DL 0.0-0.3 N BILIRUBIN INDIRECT (test cod e = BILIND) 0.20 MG/DL 0.2-1.2 N SGOT/AST (test code = AST) 27 Unit/L 15-37 N SGPT/ALT (test code = ALT) 38 Unit/L 30-65 N ALKALINE PHOSPHATASE TOTAL ( test code = ALKP) 126 Unit/L 50-136 N [id number] 02:24:00* Test Item Value Reference Range Interpretation Comme nts PHOSPHOROUS (test code = PHOS) 3.1 MG/DL 2.5-4.9 N CREATINE KINASE (CK)2024-06-05 02:24:00* Test Item Value Reference Range Interpretation Comme nts CREATINE KINASE (CK) (test c ode = CK) 37 Unit/L 21-215 N [id number] 02:24:00* Test Item Value Reference Range Interpretation Comme nts LIPASE (test code = LIP) 83 Unit/L 13-75 H [id number] 02:24:00* Test Item Value Reference Range Interpretation Comme nts MAGNESIUM (test code = MAG) 1.7 MG/DL 1.8-2.4 L TROP-I HIGH [id number] 02:24:00* Test Item Value Reference Range Interpretation Comme nts TROP-I HIGH SENSITIVITY (test code = TROPIHS) 233.3 ng/L 0-54 HH RESULTS CALLED Mónica BARROSO RNREAD BACK & CONFIRMED? YESBY [id number] 06/05/24 0224CAUTION: Units of the current test methodology (ng/L) differfrom the prior test methodology (ng/mL) by a factor of 1000. 99th Percentile Upper Reference Limit (URL):Females: 54 ng/LMales: 79 ng/L In order to distinguish acute elevations of high sensitivitytroponin from other clinical conditions, the FourthUniversal Definition of Myocardial Infarction stressesclinical assessment and the demonstration of a rise and/orfall in serial troponin results above the URL. Results from different methodologies should not be comparedto one another as quantitative results and URLs may varyby method. CBC W/O [id number] 02:19:00* Test Item Value Reference Range Interpretation Comme nts WHITE BLOOD CELL (test code = WBC) 9.7 K/mm3 3.5-11.0 N RED BLOOD CELL (test code = RBC) 3.66 M/mm3 4.70-6.10 L HEMOGLOBIN (test code = HGB) 9.1 G/DL 10.4-14.9 L HEMATOCRIT (test code = HCT) 31.1 % 31.5-44.1 L MEAN CELL VOLUME (test code = MCV) 85.0 Fl 84.5-98.6 N MEAN CELL HGB (test code = MCH) 24.9 pg 27.0-34.2 L MEAN CELL HGB CONCETRATION ( test code = MCHC) 29.3 G/DL 31.5-34.0 L RED CELL DISTRIBUTION WIDTH (test code = RDW) 17.6 SD 11.5-14.5 H PLATELET COUNT (test code = PLT) 336 K/mm3 150-450 N MEAN PLATELET VOLUME (test c ode = MPV) 12.00 fL 7.0-10.5 H PROTHROMBIN [id number] 02:09:00* Test Item Value Reference Range Interpretation Comme nts PT PATIENT (test code = PTP) 14.4 SECONDS 9.3-12.9 H INTERNATIONAL NORMAL RATIO (test code = INR) 1.29 INR Unit 0.8-1.2 H TARGET INR BY INDICATION Indication INR1. Prophylaxis of venous thrombosis 2.0 - 3.0 (orthopedic surgery), Prophylaxis of venous thrombosis (other than high-risk surgery), Treatment of Deep Vein Thrombosis/Pulmonary Embolism, Prevention of systemic embolism - Tissue heart valves, Acute Myocardial Infarction (to prevent systemic embolism), Valvular heart disease, Acute Myocardial Infarction (to prevent systemic embolism), Valvular heart disease, Atrial Fibrillation, Bileaflet mechanical valve in aortic position.2. Mechanical prosthetic valves (high risk), 2.5 - 3.5 Presence of Lupus Anticoagulant or Antiphospholipid Antibodies, Prevention of systemic embolism - Acute Myocardial Infarction (to prevent recurrent infarct). THROMBOPLASTIN TIME [id number] 02:09:00* Test Item Value Reference Range Interpretation Comme nts THROMBOPLASTIN TIME PARTIAL (test code = PTT) 32.7 SECONDS 26-35 N RESPIRATORY VIRUS PANEL [id number] 09:33:00* Test Item Value Reference Range Interpretation Comme nts RSV A PCR (test code = RSV A) NEGATIVE RSV B PCR (test code = RSV B) NEGATIVE INFLUENZA A PCR (test code = FLUAPCR) POSITIVE INFLUENZA A SUBTYPE H1 (test code = FLUAH1) POSITIVE Not Detected Previously reported result: Not Detected Edited by: [id number] on 05/16/24:0932 INFLUENZA A SUBTYPE H3 (test code = FLUAH3) Not Detected Not Detected INFLUENZA B PCR (test code = FLUBPCR) NEGATIVE PARAINFLUENZA TYPE 1 PCR (test code = PIF1) NEGATIVE PARAINFLUENZA TYPE 2 PCR (test code = PIF2) NEGATIVE PARAINFLUENZA TYPE 3 PCR (test code = PIF3) NEGATIVE PARAINFLUENZA TYPE 4 PCR (test code = PIF4) NEGATIVE RHINOVIRUS PCR (test code = RHINO) NEGATIVE METAPNEUMOVIRUS PCR (test code = METAPNEU) NEGATIVE ADENOVIRUS PCR (test code = ADENOPCR) NEGATIVE BORDETELLA PERTUSSIS DNA PCR (test code = BORDPERDNA) NEGATIVE B PARAPERTUSSIS DNA (test code = BPARAPCR) NEGATIVE BORDETELLA HOLMESII (test code = BORDHOLM) Test not performed RVP RESULT COMMENT (test code = RVPCOMM) Test not performed PER GORDY WILL DO A REPLACEMENT CODE FOR RVP PCRIs the plan to admit the patient: YesFLU/COVID +/-RSV result negative prior to ordering RVP: YesDesired post - result action: De-escalate antibioticsCMV DNA [id number] 19:08:00* Test Item Value Reference Range Interpretation Comme nts CMV DNA PCR (test code = CMVDNA) Positive < 200 IU/mL Negative CMV DNA detected.The quantitative range of this assay is 200 to 1 millionIU/mL. JAMISON-ATWOOD DNA [id number] 20:07:00* Test Item Value Reference Range Interpretation Comme nts JAMISON-ATWOOD DNA QUANT (test code = EBVDNAQTT) Negative IU/mL Negative No EBV DNA detected.The linear range of this assay is 35 - 100,000,000 IU/mLPerformed At: [facility] travelfoxChandler Regional Medical [id number] [id number] Lu MD Ph:[phone] HSV DNA QUAL [id number] 15:11:00* Test Item Value Reference Range Interpretation Comme nts HSV 1 BY PCR (test code = [id number]) Negative Negative HSV 2 BY PCR (test code = EPS2XBO) Negative Negative This test was de veloped and its performance characteristicsdetermined by [facility]. It has not been clearedor approved by the U.S. Food and Drug Administration. TheFDA has determined that such clearance or approval is notnecessary. This test is used for clinical purposes. Itshould not be regarded as investigational or research.Performed At: [facility] LabSoutheastern [facility] Behavior[facility] Health Servicesx5005 [address] [id number] Earle S MD Ph:[phone] [id number] 12:53:00* Test Item Value Reference Range Interpretation Comme nts GLUBED (test code = GLUBED) 101 MG/DL 70-105 N [id number] 07:33:00* Test Item Value Reference Range Interpretation Comme nts GLUBED (test code = GLUBED) 124 MG/DL 70-105 H THROMBOPLASTIN TIME [id number] 04:39:00* Test Item Value Reference Range Interpretation Comme nts THROMBOPLASTIN TIME PARTIAL (test code = PTT) 38.9 secs 23.8-34.8 H INTERPRETATIVE D MARIA DE JESUS: Therapeutic range: Unfractionated Heparin: 60-90 seconds Argatroban: 60-90 seconds CBC W/AUTO [id number] 04:27:00* Test Item Value Reference Range Interpretation Comme nts WHITE BLOOD CELL (test code = WBC) 7.0 x10 3/uL 4.8-10.8 N RED BLOOD CELL (test code = RBC) 3.19 x10 6/uL 4.20-5.40 L HEMOGLOBIN (test code = HGB) 7.6 g/dL 12.0-16.0 L HEMATOCRIT (test code = HCT) 27.0 % 37.0-47.0 L MEAN CELL VOLUME (test code = MCV) 84.6 fL 81.0-99.0 N MEAN CELL HGB (test code = MCH) 23.8 pg 27-31 L MEAN CELL HGB CONCENTRATION (test code = MCHC) 28.1 G/DL 33-36.5 L RED CELL DISTRIBUTION WIDTH (test code = RDW) 17.7 % 12.9-16.9 H PLATELET COUNT (test code = PLT) 350 x10 3/uL 150-440 N MEAN PLATELET VOLUME (test c ode = MPV) 10.8 fL 8.9-12.4 N NEUTROPHIL % (test code = NT%) 52.1 % 42.2-75.2 N LYMPHOCYTE % (test code = LY%) 37.2 % 20.5-51.1 N MONOCYTE % (test code = MO%) 8.3 % 1.7-9.3 N EOSINOPHIL % (test code = EO%) 0.7 % 0.0-7.0 N BASOPHIL % (test code = BA%) 0.7 % 0-2.5 N NEUTROPHIL # (test code = NT#) 3.66 x10 3/uL 1.80-7.70 N LYMPHOCYTE # (test code = LY#) 2.61 x10 3/uL 1.00-4.80 N MONOCYTE # (test code = MO#) 0.58 x10 3/uL 0.00-0.80 N EOSINOPHIL # (test code = EO#) 0.05 x10 3/uL 0.00-0.45 N BASOPHIL # (test code = BA#) 0.05 x10 3/uL 0.0-0.20 N QUANTIFERON TB [id number] 22:07:00* Test Item Value Reference Range Interpretation Comme nts QFT INCUBATION (test code = QFTI) INFCE Result: Incubation performed.INFCE Result Reference Range: () QUANTIFERON TEST (test code = QFTT) Negative Negative No response t o M tuberculosis antigens detected.Infection with M tuberculosis is unlikely, but high riskindividuals should be considered for additional testing(ATS/IDSA/CDC Clinical Practice Guidelines, 2017). Thereference range is an Antigen minus Nil result of <0.35IU/mL.Chemiluminescen ce immunoassay methodologyPerformed At: [facility] [address] [id number] Kyle L MD Ph:[phone] At: [facility] CenterDhdfueb0249 [address] [id number] Earle MD Ph:[phone] QFT POSITIVE CRITERIA (test code = QFTPOS) Comment See_Comment QuantiFERON-TB G old Plus is a qualitative indirect test forM tuberculosis infection (including disease) and isintended for use in conjunction with risk assessment,radiography, and other medical and diagnostic evaluations.The QuantiFERON-TB Gold Plus result is determined bysubtracting the Nil value from either TB antigen (Ag)value. The Mitogen tube serves as a control for the test. [Automated message] The system which generated this result transmitted reference range: (). The reference range was not used to interpret this result as normal/abnormal. QFT TB AG VALUE (test code = QFTTB) 0.05 IU/mL See_Comment [Automated messa ge] The system which generated this result transmitted reference range: (). The reference range was not used to interpret this result as normal/abnormal. QFT NIL VALUE (test code = QFTNIL) 0.04 IU/mL See_Comment [Automated messa ge] The system which generated this result transmitted reference range: (). The reference range was not used to interpret this result as normal/abnormal. QFT MITOGEN VALUE (test code = QFTMIT) 7.82 IU/mL See_Comment [Automated messa ge] The system which generated this result transmitted reference range: (). The reference range was not used to interpret this result as normal/abnormal. QFT TB AG MINUS NIL VALUE (test code = QFTTBAG) 0.04 IU/mL See_Comment [Automated messa ge] The system which generated this result transmitted reference range: (). The reference range was not used to interpret this result as normal/abnormal. [id number] 20:48:00* Test Item Value Reference Range Interpretation Comme nts GLUBED (test code = GLUBED) 180 MG/DL 70-105 H [id number] 16:46:00* Test Item Value Reference Range Interpretation Comme nts GLUBED (test code = GLUBED) 127 MG/DL 70-105 H COAGULATION TIME [id number] 12:23:00* Test Item Value Reference Range Interpretation Comme nts COAGULATION TIME ACTIVATED ( test code = ACT) 251 SECONDS 74-137 H THROMBOPLASTIN TIME [id number] 08:54:00* Test Item Value Reference Range Interpretation Comme nts THROMBOPLASTIN TIME PARTIAL (test code = PTT) 70.1 secs 23.8-34.8 H INTERPRETATIVE D MARIA DE JESUS: Therapeutic range: Unfractionated Heparin: 60-90 seconds Argatroban: 60-90 seconds THROMBOPLASTIN TIME [id number] 07:52:00* Test Item Value Reference Range Interpretation Comme nts THROMBOPLASTIN TIME PARTIAL (test code = PTT) 119.7 secs 23.8-34.8 HH Critical Value reported toFirst Name:CALI Last Name:BRENESRESULTS READ BACK AND VERIFIEDby [id number], on 05/10/24, @ 3591.INTERPRETATIVE DATA: Therapeutic range: Unfractionated Heparin: 60-90 seconds Argatroban: 60-90 seconds [id number] 07:48:00* Test Item Value Reference Range Interpretation Comme nts GLUBED (test code = GLUBED) 78 MG/DL 70-105 N BASIC METABOLIC [id number] 05:28:00* Test Item Value Reference Range Interpretation Comme nts SODIUM (test code = NA) 133 mmol/L 136-145 L POTASSIUM (test code = K) 4.4 mmol/L 3.5-5.1 N CHLORIDE (test code = CL) 101 mmol/l 98-107 N CARBON DIOXIDE (test code = CO2) 29 mmol/L 20-31 N GLUCOSE (test code = GLU) 81 mg/dL 74-106 N BLOOD UREA NITROGEN (test code = BUN) 22 mg/dL 9-23 N GLOMERULAR FILTRATION RATE (test code = GFR) 12 mL/min >60 L The Glomerular Filtration Rate is a calculated parameterbased on serum Creatinine, patient age and sex. GFR valuesless than 60 mL/min/1.73 square meters are indicative ofChronic Kidney Disease. Values less than 15 mL/min/1.73square meters indicate Kidney failure. The calculation forGFR is based on the CKD-EPI (2020) calculation. This formulais race indifferent and is the recommended formula for GFRby the National Kidney Foundation for Adults.The GFR will not calculate if the sex is unknown or if thepatient's age is <18 years. CREATININE (test code = CREAT) 3.90 mg/dL 0.55-1.02 H CALCIUM (test code = CA) 8.4 mg/dL 8.7-10.4 L THROMBOPLASTIN TIME [id number] 05:22:00* Test Item Value Reference Range Interpretation Comme nts THROMBOPLASTIN TIME PARTIAL (test code = PTT) 273.5 secs 23.8-34.8 HH Critical Value reported toFirst Name:RAJANI Last Name:TRA READ BACK AND VERIFIEDby [id number], on 05/10/24, @ 7010.INTERPRETATIVE DATA: Therapeutic range: Unfractionated Heparin: 60-90 seconds Argatroban: 60-90 seconds CBC W/AUTO [id number] 04:51:00* Test Item Value Reference Range Interpretation Comme nts WHITE BLOOD CELL (test code = WBC) 5.8 x10 3/uL 4.8-10.8 N RED BLOOD CELL (test code = RBC) 3.31 x10 6/uL 4.20-5.40 L HEMOGLOBIN (test code = HGB) 8.0 g/dL 12.0-16.0 L HEMATOCRIT (test code = HCT) 28.2 % 37.0-47.0 L MEAN CELL VOLUME (test code = MCV) 85.2 fL 81.0-99.0 N MEAN CELL HGB (test code = MCH) 24.2 pg 27-31 L MEAN CELL HGB CONCENTRATION (test code = MCHC) 28.4 G/DL 33-36.5 L RED CELL DISTRIBUTION WIDTH (test code = RDW) 17.5 % 12.9-16.9 H PLATELET COUNT (test code = PLT) 390 x10 3/uL 150-440 N MEAN PLATELET VOLUME (test c ode = MPV) 10.6 fL 8.9-12.4 N NEUTROPHIL % (test code = NT%) 40.2 % 42.2-75.2 L LYMPHOCYTE % (test code = LY%) 46.0 % 20.5-51.1 N MONOCYTE % (test code = MO%) 11.0 % 1.7-9.3 H EOSINOPHIL % (test code = EO%) 0.9 % 0.0-7.0 N BASOPHIL % (test code = BA%) 0.9 % 0-2.5 N NEUTROPHIL # (test code = NT#) 2.35 x10 3/uL 1.80-7.70 N LYMPHOCYTE # (test code = LY#) 2.68 x10 3/uL 1.00-4.80 N MONOCYTE # (test code = MO#) 0.64 x10 3/uL 0.00-0.80 N EOSINOPHIL # (test code = EO#) 0.05 x10 3/uL 0.00-0.45 N BASOPHIL # (test code = BA#) 0.05 x10 3/uL 0.0-0.20 N HCV LIVER FIBROSIS [id number] 02:07:00* Test Item Value Reference Range Interpretation Comments FIBROSIS SCORE (test code = HCVFSC) 0.32 0.00-0.21 H FIBROSIS STAGE (test code = HCVFST) F1-F2 See_Comment [Automated messa ge] The system which generated this result transmitted reference range: (). The reference range was not used to interpret this result as normal/abnormal. ACTIVITY SCORE (test code = HCVFNAS) 0.10 0.00-0.17 ACTIVITY GRADE (test code = HCVFGR) A0-No activity See_Comment [Automated message] The system which generated this result transmitted reference range: (). The reference range was not used to interpret this result as normal/abnormal. HAPTAOGLOBIN HCVF (test code = HCVFHAP) 184 mg/dL 37-355 BILIRUBIN TOTAL (test code = BILT) 0.3 mg/dL 0.0-1.2 SGPT/ALT (test code = ALT) 23 IU/L 0-40 GAMMA GLUTAMYL TRANSPEPTIDASE (test code = GGT) 26 IU/L 0-60 APOLIPOPROTEIN A1 (test code = APOA1) 97 mg/dL 116-209 L ROOWO-9-NCANACPFFRB IN (test code = ALPH2) 261 mg/dL 110-276 INTERPRETATIONS (test code = HCVFINT) Comment See_Comment Quantitative res ults of 6 biochemical tests are analyzedusing a computational algorithm to provide a quantitativesurrogate marker (0.0-1.0) for liver fibrosis (METAVIR F0-F4) and for necroinflammatory activity (METAVIR A0-A3). [Automated message] The system which generated this result transmitted reference range: (). The reference range was not used to interpret this result as normal/abnormal. SCORE COMMENT (test code = HCVFSCC) Comment See_Comment <=0.21 = Stage F 0 - No fibrosis0.21 - 0.27 = Stage F0 - F10.27 - 0.31 = Stage F1 - Portal fibrosis0.31 - 0.48 = Stage F1 - F20.48 - 0.58 = Stage F2 - Bridging fibrosis with few septa0.58 - 0.72 = Stage F3 - Bridging fibrosis with many septa0.72 - 0.74 = Stage F3 - F4 >0.74 = Stage F4 - Cirrhosis [Automated message] The system which generated this result transmitted reference range: (). The reference range was not used to interpret this result as normal/abnormal. ACTIVITY COMMENT (test code = HCVFNASC) Comment See_Comment <0.17 = Grade A0 - No Activity0.17 - 0.29 = Grade A0 - A10.29 - 0.36 = Grade A1 - Minimal activity0.36 - 0.52 = Grade A1 - A20.52 - 0.60 = Grade A2 - Moderate activity0.60 - 0.62 = Grade A2 - A3 >0.62 = Grade A3 - Severe activity [Automated message] The system which generated this result transmitted reference range: (). The reference range was not used to interpret this result as normal/abnormal. LIMITATIONS (test code = HCVFLIM) Comment See_Comment The negative pre dictive value of a Fibrotest score <0.31(absence of clinically significant fibrosis) was 85% whencompared to liver biopsy in 1,270 HCV infected patientswith a 38% prevalence of significant liver fibrosis (F2, 3or 4). The positive predictive value of a Fibro-test score>0.48 (F2, 3, 4) was 61% in that same patient cohort. HCVFibroSURE is not recommended in patients with GilbertDisease, acute hemolysis (e.g. HCV ribavirin therapymediated hemolysis) acute hepa-titis of the liver, extra-hepatic cholestasis, transplant patients, and/or renalinsufficiency patients. Any of these clinical situationsmay lead to inaccurate quantitative predictions offibrosis and necroinflammatory activity in the liver. [Automated message] The system which generated this result transmitted reference range: (). The reference range was not used to interpret this result as normal/abnormal. COMMENT HCVF (test code = HCVFCMT) Comment See_Comment This test was de veloped and its performance characteristicsdetermined by [employer]. It has not been cleared or approvedby the Food and Drug Administration. The FDA hasdetermined that such clearance or approval is notnecessary.For questions regarding this report please contact customerservice at .Performed At: [address] [id number] Lyons MD Ph:[phone] [Automated message] The system which generated this result transmitted reference range: (). The reference range was not used to interpret this result as normal/abnormal. THROMBOPLASTIN TIME [id number] 22:14:00* Test Item Value Reference Range Interpretation Comme nts THROMBOPLASTIN TIME PARTIAL (test code = PTT) 94.6 secs 23.8-34.8 H INTERPRETATIVE D MARIA DE JESUS: Therapeutic range: Unfractionated Heparin: 60-90 seconds Argatroban: 60-90 seconds [id number] 20:19:00* Test Item Value Reference Range Interpretation Comme nts GLUBED (test code = GLUBED) 143 MG/DL 70-105 H THROMBOPLASTIN TIME [id number] 19:36:00* Test Item Value Reference Range Interpretation Comme nts THROMBOPLASTIN TIME PARTIAL (test code = PTT) 213.4 secs 23.8-34.8 HH Critical Value reported toFirst Name:POLY Last Name:VIK Lu READ BACK AND VERIFIEDby P.LAB.IXH, on 05/09/24, @ 1935.INTERPRETATIVE DATA: Therapeutic range: Unfractionated Heparin: 60-90 seconds Argatroban: 60-90 seconds THROMBOPLASTIN TIME [id number] 18:22:00* Test Item Value Reference Range Interpretation Comme nts THROMBOPLASTIN TIME PARTIAL (test code = PTT) > 400.0 secs 23.8-34.8 HH Critical Value reported toFirst Name:GORDY Last Name:ABIDA READ BACK AND VERIFIEDby P.LAB.IXH, on 05/09/24, @ 6982.INTERPRETATIVE DATA: Therapeutic range: Unfractionated Heparin: 60-90 seconds Argatroban: 60-90 seconds [id number] 16:49:00* Test Item Value Reference Range Interpretation Comme nts GLUBED (test code = GLUBED) 173 MG/DL 70-105 H THROMBOPLASTIN TIME [id number] 15:56:00* Test Item Value Reference Range Interpretation Comme nts THROMBOPLASTIN TIME PARTIAL (test code = PTT) > 400.0 secs 23.8-34.8 HH Critical Value reported toFirst Name:JOSE R Last Name:UZMA READ BACK AND VERIFIEDby P.LAB.IXH, on 05/09/24, @ 6816.INTERPRETATIVE DATA: Therapeutic range: Unfractionated Heparin: 60-90 seconds Argatroban: 60-90 seconds [id number] 12:13:00* Test Item Value Reference Range Interpretation Comme nts GLUBED (test code = GLUBED) 79 MG/DL 70-105 N AB [id number] 09:12:00* Test Item Value Reference Range Interpretation Comme nts AB TREPONEMA (test code = TREPAB) NONREACTIVE NONREACTIVE [id number] 07:46:00* Test Item Value Reference Range Interpretation Comme nts GLUBED (test code = GLUBED) 70 MG/DL 70-105 N [id number] 05:42:00* Test Item Value Reference Range Interpretation Comme nts AMMONIA (test code = AMM) 27 mcmol/L 11-32 N COMPREHENSIVE METABOLIC [id number] 05:42:00* Test Item Value Reference Range Interpretation Comme nts SODIUM (test code = NA) 132 mmol/L 136-145 L POTASSIUM (test code = K) 4.1 mmol/L 3.5-5.1 N CHLORIDE (test code = CL) 98 mmol/l 98-107 N CARBON DIOXIDE (test code = CO2) 28 mmol/L 20-31 N GLUCOSE (test code = GLU) 78 mg/dL 74-106 N BLOOD UREA NITROGEN (test code = BUN) 29 mg/dL 9-23 H GLOMERULAR FILTRATION RATE (test code = GFR) 9 mL/min >60 L The Glomerular Filtration Rate is a calculated parameterbased on serum Creatinine, patient age and sex. GFR valuesless than 60 mL/min/1.73 square meters are indicative ofChronic Kidney Disease. Values less than 15 mL/min/1.73square meters indicate Kidney failure. The calculation forGFR is based on the CKD-EPI (2020) calculation. This formulais race indifferent and is the recommended formula for GFRby the National Kidney Foundation for Adults.The GFR will not calculate if the sex is unknown or if thepatient's age is <18 years. CREATININE (test code = CREAT) 5.20 mg/dL 0.55-1.02 H TOTAL PROTEIN (test code = PROT) 5.8 g/dL 5.7-8.2 N ALBUMIN (test code = ALB) 3.2 g/dL 3.2-4.8 N CALCIUM (test code = CA) 8.3 mg/dL 8.7-10.4 L BILIRUBIN TOTAL (test code = BILT) 0.3 mg/dL 0.3-1.2 N SGOT/AST (test code = AST) 25 U/L <34 N SGPT/ALT (test code = ALT) 9 U/L 10-49 L ALKALINE PHOSPHATASE (test code = ALKP) 66.0 U/L 46-116 N THROMBOPLASTIN TIME [id number] 05:41:00* Test Item Value Reference Range Interpretation Comme nts THROMBOPLASTIN TIME PARTIAL (test code = PTT) 54.8 secs 23.8-34.8 H INTERPRETATIVE D MARIA DE JESUS: Therapeutic range: Unfractionated Heparin: 60-90 seconds Argatroban: 60-90 seconds CBC W/AUTO [id number] 05:29:00* Test Item Value Reference Range Interpretation Comme nts WHITE BLOOD CELL (test code = WBC) 5.5 x10 3/uL 4.8-10.8 N RED BLOOD CELL (test code = RBC) 3.13 x10 6/uL 4.20-5.40 L HEMOGLOBIN (test code = HGB) 7.5 g/dL 12.0-16.0 L HEMATOCRIT (test code = HCT) 26.4 % 37.0-47.0 L MEAN CELL VOLUME (test code = MCV) 84.3 fL 81.0-99.0 N MEAN CELL HGB (test code = MCH) 24.0 pg 27-31 L MEAN CELL HGB CONCENTRATION (test code = MCHC) 28.4 G/DL 33-36.5 L RED CELL DISTRIBUTION WIDTH (test code = RDW) 17.4 % 12.9-16.9 H PLATELET COUNT (test code = PLT) 393 x10 3/uL 150-440 N MEAN PLATELET VOLUME (test c ode = MPV) 10.9 fL 8.9-12.4 N NEUTROPHIL % (test code = NT%) 36.1 % 42.2-75.2 L LYMPHOCYTE % (test code = LY%) 49.4 % 20.5-51.1 N MONOCYTE % (test code = MO%) 11.9 % 1.7-9.3 H EOSINOPHIL % (test code = EO%) 0.6 % 0.0-7.0 N BASOPHIL % (test code = BA%) 0.7 % 0-2.5 N NEUTROPHIL # (test code = NT#) 1.97 x10 3/uL 1.80-7.70 N LYMPHOCYTE # (test code = LY#) 2.69 x10 3/uL 1.00-4.80 N MONOCYTE # (test code = MO#) 0.65 x10 3/uL 0.00-0.80 N EOSINOPHIL # (test code = EO#) 0.03 x10 3/uL 0.00-0.45 N BASOPHIL # (test code = BA#) 0.04 x10 3/uL 0.0-0.20 N THROMBOPLASTIN TIME [id number] 22:34:00* Test Item Value Reference Range Interpretation Comme nts THROMBOPLASTIN TIME PARTIAL (test code = PTT) 62.7 secs 23.8-34.8 H INTERPRETATIVE D MARIA DE JESUS: Therapeutic range: Unfractionated Heparin: 60-90 seconds Argatroban: 60-90 seconds [id number] 21:04:00* Test Item Value Reference Range Interpretation Comme nts GLUBED (test code = GLUBED) 83 MG/DL 70-105 N [id number] 16:32:00* Test Item Value Reference Range Interpretation Comme nts GLUBED (test code = GLUBED) 125 MG/DL 70-105 H THROMBOPLASTIN TIME [id number] 15:02:00* Test Item Value Reference Range Interpretation Comme nts THROMBOPLASTIN TIME PARTIAL (test code = PTT) 36.8 secs 23.8-34.8 H INTERPRETATIVE D MARIA DE JESUS: Therapeutic range: Unfractionated Heparin: 60-90 seconds Argatroban: 60-90 seconds [id number] 15:02:00* Test Item Value Reference Range Interpretation Comme nts AMMONIA (test code = AMM) 55 mcmol/L 11-32 H [id number] 11:54:00* Test Item Value Reference Range Interpretation Comme nts GLUBED (test code = GLUBED) 128 MG/DL 70-105 H FE W/TOTAL IRON BINDING [id number] 07:19:00* Test Item Value Reference Range Interpretation Comme nts IRON (test code = IRON) 19 mcg/dL 50-175 L TOTAL IRON BINDING CAPACITY (test code = TIBC) 314 mcg/dL 250-425 N IRON SATURATION (test code = FESAT) 6 % 15-50 L THROMBOPLASTIN TIME [id number] 06:19:00* Test Item Value Reference Range Interpretation Comme nts THROMBOPLASTIN TIME PARTIAL (test code = PTT) 35.0 secs 23.8-34.8 H INTERPRETATIVE D MARIA DE JESUS: Therapeutic range: Unfractionated Heparin: 60-90 seconds Argatroban: 60-90 seconds COMPREHENSIVE METABOLIC [id number] 05:58:00* Test Item Value Reference Range Interpretation Comme nts SODIUM (test code = NA) 137 mmol/L 136-145 N POTASSIUM (test code = K) 4.7 mmol/L 3.5-5.1 N CHLORIDE (test code = CL) 102 mmol/l 98-107 N CARBON DIOXIDE (test code = CO2) 24 mmol/L 20-31 N GLUCOSE (test code = GLU) 83 mg/dL 74-106 N BLOOD UREA NITROGEN (test code = BUN) 14 mg/dL 9-23 N GLOMERULAR FILTRATION RATE (test code = GFR) 13 mL/min >60 L The Glomerular Filtration Rate is a calculated parameterbased on serum Creatinine, patient age and sex. GFR valuesless than 60 mL/min/1.73 square meters are indicative ofChronic Kidney Disease. Values less than 15 mL/min/1.73square meters indicate Kidney failure. The calculation forGFR is based on the CKD-EPI (2020) calculation. This formulais race indifferent and is the recommended formula for GFRby the National Kidney Foundation for Adults.The GFR will not calculate if the sex is unknown or if thepatient's age is <18 years. CREATININE (test code = CREAT) 3.70 mg/dL 0.55-1.02 H TOTAL PROTEIN (test code = PROT) 6.5 g/dL 5.7-8.2 N ALBUMIN (test code = ALB) 3.5 g/dL 3.2-4.8 N CALCIUM (test code = CA) 9.0 mg/dL 8.7-10.4 N BILIRUBIN TOTAL (test code = BILT) 0.4 mg/dL 0.3-1.2 N SGOT/AST (test code = AST) 26 U/L <34 N SGPT/ALT (test code = ALT) 12 U/L 10-49 N ALKALINE PHOSPHATASE (test code = ALKP) 75.0 U/L 46-116 N CBC W/AUTO [id number] 05:28:00* Test Item Value Reference Range Interpretation Comme nts WHITE BLOOD CELL (test code = WBC) 6.3 x10 3/uL 4.8-10.8 N RED BLOOD CELL (test code = RBC) 3.24 x10 6/uL 4.20-5.40 L HEMOGLOBIN (test code = HGB) 7.8 g/dL 12.0-16.0 L HEMATOCRIT (test code = HCT) 28.1 % 37.0-47.0 L MEAN CELL VOLUME (test code = MCV) 86.7 fL 81.0-99.0 N MEAN CELL HGB (test code = MCH) 24.1 pg 27-31 L MEAN CELL HGB CONCENTRATION (test code = MCHC) 27.8 G/DL 33-36.5 L RED CELL DISTRIBUTION WIDTH (test code = RDW) 17.3 % 12.9-16.9 H PLATELET COUNT (test code = PLT) 416 x10 3/uL 150-440 N MEAN PLATELET VOLUME (test c ode = MPV) 11.2 fL 8.9-12.4 N NEUTROPHIL % (test code = NT%) 47.3 % 42.2-75.2 N LYMPHOCYTE % (test code = LY%) 36.3 % 20.5-51.1 N MONOCYTE % (test code = MO%) 13.2 % 1.7-9.3 H EOSINOPHIL % (test code = EO%) 1.6 % 0.0-7.0 N BASOPHIL % (test code = BA%) 0.8 % 0-2.5 N NEUTROPHIL # (test code = NT#) 2.97 x10 3/uL 1.80-7.70 N LYMPHOCYTE # (test code = LY#) 2.28 x10 3/uL 1.00-4.80 N MONOCYTE # (test code = MO#) 0.83 x10 3/uL 0.00-0.80 H EOSINOPHIL # (test code = EO#) 0.10 x10 3/uL 0.00-0.45 N BASOPHIL # (test code = BA#) 0.05 x10 3/uL 0.0-0.20 N THROMBOPLASTIN TIME [id number] 21:25:00* Test Item Value Reference Range Interpretation Comme nts THROMBOPLASTIN TIME PARTIAL (test code = PTT) 119.3 secs 23.8-34.8 HH First Name:Kerri Name:FAVIOLA READ BACK AND VERIFIEDby CONSTANCE, on 05/07/24, @ 3851.INTERPRETATIVE DATA: Therapeutic range: Unfractionated Heparin: 60-90 seconds Argatroban: 60-90 seconds [id number] 21:14:00* Test Item Value Reference Range Interpretation Comme nts GLUBED (test code = GLUBED) 93 MG/DL 70-105 N [id number] 16:34:00* Test Item Value Reference Range Interpretation Comme nts GLUBED (test code = GLUBED) 102 MG/DL 70-105 N THROMBOPLASTIN TIME [id number] 13:33:00* Test Item Value Reference Range Interpretation Comme nts THROMBOPLASTIN TIME PARTIAL (test code = PTT) 31.1 secs 23.8-34.8 N INTERPRETATIVE D MARIA DE JESUS: Therapeutic range: Unfractionated Heparin: 60-90 seconds Argatroban: 60-90 seconds [id number] 11:56:00* Test Item Value Reference Range Interpretation Comme nts GLUBED (test code = GLUBED) 78 MG/DL 70-105 N WINTROBE SED [id number] 10:36:00* Test Item Value Reference Range Interpretation Comme nts WINTROBE SED RATE (test code = SEDWI) 44 mm/HR 0-20 H AB HEPATITIS B [id number] 10:34:00* Test Item Value Reference Range Interpretation Comme nts AB HEPATITIS B SURFACE (test code = HBSAB) REACTIVE Nonreactive A AG HEPATITIS B [id number] 10:34:00* Test Item Value Reference Range Interpretation Comme nts AG HEPATITIS B SURFACE (test code = HBSAG) Nonreactive Nonreactive AB HEPATITIS B [id number] 10:34:00* Test Item Value Reference Range Interpretation Comme nts AB HEPATITIS B CORE (test co de = HBCAB) Nonreactive Nonreactive AB HEPATITIS [id number] 10:34:00* Test Item Value Reference Range Interpretation Comme nts AB HEPATITIS C (test code = HCVAB) Nonreactive Nonreactive C REACTIVE [id number] 09:55:00* Test Item Value Reference Range Interpretation Comme nts C REACTIVE PROTEIN (test code = CRP) 25 mg/L <10 H COVID 19 INHOUSE [id number] 08:14:00* Test Item Value Reference Range Interpretation Comme nts COVID 19 INHOUSE AG (test co de = [id number]) NEGATIVE NEGATIVE PROTHROMBIN [id number] 05:07:00* Test Item Value Reference Range Interpretation Comme nts PROTHROMBIN TIME PATIENT (test code = PTP) 23.7 SECONDS 10.3-12.9 H INTERNATIONAL NORMAL RATIO (test code = INR) 2.15 0.9-1.11 H INR goals are individualized based on patient specificfactors. The following are only general guidelines: Indications: INR Goal:1. Treatment of venous thromboembolism and 2.0 - 3.0 systemic anticoagulation in a variety of conditions, including atrial fibrillation and mechanical heart valves 2. Mechanical mitral and tricuspid valves, 2.5 - 3.5 systemic anticoagulation for high-risk conditions COMPREHENSIVE METABOLIC [id number] 04:53:00* Test Item Value Reference Range Interpretation Comme nts SODIUM (test code = NA) 134 mmol/L 136-145 L POTASSIUM (test code = K) 4.7 mmol/L 3.5-5.1 N CHLORIDE (test code = CL) 101 mmol/l 98-107 N CARBON DIOXIDE (test code = CO2) 27 mmol/L 20-31 N GLUCOSE (test code = GLU) 82 mg/dL 74-106 N BLOOD UREA NITROGEN (test code = BUN) 19 mg/dL 9-23 N GLOMERULAR FILTRATION RATE (test code = GFR) 11 mL/min >60 L The Glomerular Filtration Rate is a calculated parameterbased on serum Creatinine, patient age and sex. GFR valuesless than 60 mL/min/1.73 square meters are indicative ofChronic Kidney Disease. Values less than 15 mL/min/1.73square meters indicate Kidney failure. The calculation forGFR is based on the CKD-EPI (2020) calculation. This formulais race indifferent and is the recommended formula for GFRby the National Kidney Foundation for Adults.The GFR will not calculate if the sex is unknown or if thepatient's age is <18 years. CREATININE (test code = CREAT) 4.30 mg/dL 0.55-1.02 H TOTAL PROTEIN (test code = PROT) 6.4 g/dL 5.7-8.2 N ALBUMIN (test code = ALB) 3.5 g/dL 3.2-4.8 N CALCIUM (test code = CA) 9.1 mg/dL 8.7-10.4 N BILIRUBIN TOTAL (test code = BILT) 0.4 mg/dL 0.3-1.2 N SGOT/AST (test code = AST) 20 U/L <34 N SGPT/ALT (test code = ALT) 13 U/L 10-49 N ALKALINE PHOSPHATASE (test code = ALKP) 81.0 U/L 46-116 N CBC W/AUTO [id number] 04:36:00* Test Item Value Reference Range Interpretation Comme nts WHITE BLOOD CELL (test code = WBC) 9.1 x10 3/uL 4.8-10.8 N RED BLOOD CELL (test code = RBC) 3.00 x10 6/uL 4.20-5.40 L HEMOGLOBIN (test code = HGB) 7.2 g/dL 12.0-16.0 L HEMATOCRIT (test code = HCT) 25.6 % 37.0-47.0 L MEAN CELL VOLUME (test code = MCV) 85.3 fL 81.0-99.0 N MEAN CELL HGB (test code = MCH) 24.0 pg 27-31 L MEAN CELL HGB CONCENTRATION (test code = MCHC) 28.1 G/DL 33-36.5 L RED CELL DISTRIBUTION WIDTH (test code = RDW) 17.1 % 12.9-16.9 H PLATELET COUNT (test code = PLT) 450 x10 3/uL 150-440 H MEAN PLATELET VOLUME (test c ode = MPV) 11.1 fL 8.9-12.4 N NEUTROPHIL % (test code = NT%) 68.8 % 42.2-75.2 N LYMPHOCYTE % (test code = LY%) 16.4 % 20.5-51.1 L MONOCYTE % (test code = MO%) 13.0 % 1.7-9.3 H EOSINOPHIL % (test code = EO%) 0.2 % 0.0-7.0 N BASOPHIL % (test code = BA%) 0.8 % 0-2.5 N NEUTROPHIL # (test code = NT#) 6.29 x10 3/uL 1.80-7.70 N LYMPHOCYTE # (test code = LY#) 1.50 x10 3/uL 1.00-4.80 N MONOCYTE # (test code = MO#) 1.19 x10 3/uL 0.00-0.80 H EOSINOPHIL # (test code = EO#) 0.02 x10 3/uL 0.00-0.45 N BASOPHIL # (test code = BA#) 0.07 x10 3/uL 0.0-0.20 N [id number] 20:24:00* Test Item Value Reference Range Interpretation Comme nts GLUBED (test code = GLUBED) 106 MG/DL 70-105 H LACTIC [id number] 17:21:00* Test Item Value Reference Range Interpretation Comme nts LACTIC ACID (test code = LACT) 1.10 mmol/L 0.5-2.0 N [id number] 16:58:00* Test Item Value Reference Range Interpretation Comme nts GLUBED (test code = GLUBED) 197 MG/DL 70-105 H [id number] 11:50:00* Test Item Value Reference Range Interpretation Comme nts GLUBED (test code = GLUBED) 199 MG/DL 70-105 H AB HEPATITIS B [id number] 09:55:00* Test Item Value Reference Range Interpretation Comme nts AB HEPATITIS B SURFACE (test code = HBSAB) REACTIVE Nonreactive A AG HEPATITIS B [id number] 09:55:00* Test Item Value Reference Range Interpretation Comme nts AG HEPATITIS B SURFACE (test code = HBSAG) Nonreactive Nonreactive AB HEPATITIS [id number] 09:55:00* Test Item Value Reference Range Interpretation Comme nts AB HEPATITIS C (test code = HCVAB) Nonreactive Nonreactive [id number] 07:24:00* Test Item Value Reference Range Interpretation Comme nts GLUBED (test code = GLUBED) 126 MG/DL 70-105 H B-TYPE NATRIURETIC [id number] 01:46:00* Test Item Value Reference Range Interpretation Comme nts B-TYPE NATRIURETIC PEPTIDE ( test code = BNP) 953 pg/mL <100 H LIVER FUNCTION [id number] 01:42:00* Test Item Value Reference Range Interpretation Comme nts BILIRUBIN DIRECT (test code = BILD) 0.2 mg/dL <0.3 N [id number] 01:42:00* Test Item Value Reference Range Interpretation Comme nts PHOSPHOROUS (test code = PHOS) 3.8 mg/dL 2.4-5.1 N URIC [id number] 01:42:00* Test Item Value Reference Range Interpretation Comme nts URIC ACID (test code = URIC) 3.3 mg/dL 3.1-7.8 N CREATINE KINASE (CK)2024-05-06 01:42:00* Test Item Value Reference Range Interpretation Comme nts CREATINE KINASE (CK) (test code = CK) 40 U/L 34-171 N [id number] 01:42:00* Test Item Value Reference Range Interpretation Comme nts MAGNESIUM (test code = MAG) 2.4 mg/dL 1.6-2.6 N THYROID STIMULATING [id number] 01:42:00* Test Item Value Reference Range Interpretation Comme nts THYROID STIMULATING HORMONE (test code = TSH) 0.66 uIU/mL 0.55-4.78 N [id number] 01:42:00* Test Item Value Reference Range Interpretation Comme nts AMMONIA (test code = AMM) 108 mcmol/L 11-32 HH Critical Value reported toFirst Name:FLOYD Last Name:DUNGORESULTS READ BACK AND VERIFIEDby [id number], on 05/06/24, @ 0142. [id number] 01:42:00* Test Item Value Reference Range Interpretation Comme nts TROPONIN-I (test code = TROPI) 72.5 pg/mL 27.36-66.23 HH Critical Value r eported toFirst Name:FLOYD Last Name:IMORESULTS READ BACK AND VERIFIEDby [id number], on 05/06/24, @ 0142. COMPREHENSIVE METABOLIC [id number] 01:42:00* Test Item Value Reference Range Interpretation Comme nts SODIUM (test code = NA) 136 mmol/L 136-145 N POTASSIUM (test code = K) 4.6 mmol/L 3.5-5.1 N CHLORIDE (test code = CL) 102 mmol/l 98-107 N CARBON DIOXIDE (test code = CO2) 27 mmol/L 20-31 N GLUCOSE (test code = GLU) 176 mg/dL 74-106 H BLOOD UREA NITROGEN (test code = BUN) 11 mg/dL 9-23 N GLOMERULAR FILTRATION RATE (test code = GFR) 18 mL/min >60 L The Glomerular Filtration Rate is a calculated parameterbased on serum Creatinine, patient age and sex. GFR valuesless than 60 mL/min/1.73 square meters are indicative ofChronic Kidney Disease. Values less than 15 mL/min/1.73square meters indicate Kidney failure. The calculation forGFR is based on the CKD-EPI (2020) calculation. This formulais race indifferent and is the recommended formula for GFRby the National Kidney Foundation for Adults.The GFR will not calculate if the sex is unknown or if thepatient's age is <18 years. CREATININE (test code = CREAT) 2.80 mg/dL 0.55-1.02 H TOTAL PROTEIN (test code = PROT) 6.6 g/dL 5.7-8.2 N ALBUMIN (test code = ALB) 3.5 g/dL 3.2-4.8 N CALCIUM (test code = CA) 8.4 mg/dL 8.7-10.4 L BILIRUBIN TOTAL (test code = BILT) 0.4 mg/dL 0.3-1.2 N SGOT/AST (test code = AST) 24 U/L <34 N SGPT/ALT (test code = ALT) 18 U/L 10-49 N ALKALINE PHOSPHATASE (test code = ALKP) 93.0 U/L 46-116 N LIPID PROFILE (CORONARY RISK)2024-05-06 01:42:00* Test Item Value Reference Range Interpretation Comme nts TRIGLYCERIDES (test code = TRIG) 78 mg/dL <150 N CHOLESTEROL (test code = CHOL) 65 mg/dL <200 N HDL CHOLESTEROL (test code = HDL) 34 mg/dL >60 L Please note New Reference Interval Jan 2023 REFERENCE INTERVALLow (undesirable, high risk): < 40 mg/dLHigh (desirable, low risk): >/= 60 mg/dL LIPOPROTEIN LDL (test code = LDLC) 15 mg/dL <100 N INTERPRETATIVE D MARIA DE JESUS:LDL Cholesterol: Reference RangesOptimal: <100 mg/dLNear Optimal: 100 -129 mg/dLBorderline High: 130 - 159 mg/dLHigh: 160 - 189 mg/dLVery High: = or > 190 mg/dL CORONARY RISK FACTOR (test code = RISK) 1.91 CHOL/HDL RISK MALE: 1/2 AVG 3.43 FEMALE: 1/2 AVG 3.27 AVG 4.97 AVG 4.44 2X AVG 9.55 2X AVG 7.05 3X AVG 23.39 3X AVG 11.04~~~~~~~~~~~~~~~~~~ ~~~~~~~~~~~~~~~~~~~~~~~ ~~~~~~~~~~~~~~~~~~~Yen onal Cholesterol Education (NCEP) Guidelines:~~~~~~~~~~~~ ~~~~~~~~~~~~~~~~~~~~~~~ ~~~~~~~~~~~~~~~~~~~~~~~ ~~ HDL Cholesterol<40mg/dL: HDL Cholesterol (Major risk factor for CHD)>60mg/dL: HDL Cholesterol (Negative risk factor for CHD)40-59mg/dL: Borderline Risk LDL Cholesterol<100mg/dL: Desirable LDL-C [id number]/ dL: Borderline High Risk LDL-C [id number]/ dL: High risk LDL-C concentration HDL-LDL Cholesterol is affected by a number of factors suchas smoking, age and sex.~~~~~~~~~~~~~~~~~~~ ~~~~~~~~~~~~~~~~~~~~~~~ ~~~~~~~~~~~~~~~~~~ HGBA1C - GLYCOSYLATED [id number] 01:40:00* Test Item Value Reference Range Interpretation Comme nts GLYCOSYLATED HEMOGLOBIN (HA1C) (test code = GLYHGB) 8.0 % <5.7 H Diabetic >/= 6.5%Prediabetes 5.7-6.4%Normal < 5.7% PROTHROMBIN [id number] 01:39:00* Test Item Value Reference Range Interpretation Comme nts PROTHROMBIN TIME PATIENT (test code = PTP) 32.4 SECONDS 10.3-12.9 H INTERNATIONAL NORMAL RATIO (test code = INR) 2.95 0.9-1.11 H INR goals are individualized based on patient specificfactors. The following are only general guidelines: Indications: INR Goal:1. Treatment of venous thromboembolism and 2.0 - 3.0 systemic anticoagulation in a variety of conditions, including atrial fibrillation and mechanical heart valves 2. Mechanical mitral and tricuspid valves, 2.5 - 3.5 systemic anticoagulation for high-risk conditions CBC W/O [id number] 01:22:00* Test Item Value Reference Range Interpretation Comme nts WHITE BLOOD CELL (test code = WBC) 9.9 x10 3/uL 4.8-10.8 N RED BLOOD CELL (test code = RBC) 3.08 x10 6/uL 4.20-5.40 L HEMOGLOBIN (test code = HGB) 7.4 g/dL 12.0-16.0 L HEMATOCRIT (test code = HCT) 25.8 % 37.0-47.0 L MEAN CELL VOLUME (test code = MCV) 83.8 fL 81.0-99.0 N MEAN CELL HGB (test code = MCH) 24.0 pg 27-31 L MEAN CELL HGB CONCENTRATION (test code = MCHC) 28.7 G/DL 33-36.5 L RED CELL DISTRIBUTION WIDTH (test code = RDW) 16.9 % 12.9-16.9 N PLATELET COUNT (test code = PLT) 511 x10 3/uL 150-440 H CBC W/AUTO [id number] 17:59:00* Test Item Value Reference Range Interpretation Comme nts WHITE BLOOD CELL (test code = WBC) 12.8 K/mm3 3.5-11.0 H RED BLOOD CELL (test code = RBC) 3.14 M/mm3 4.70-6.10 L HEMOGLOBIN (test code = HGB) 7.6 G/DL 10.4-14.9 L HEMATOCRIT (test code = HCT) 26.4 % 31.5-44.1 L MEAN CELL VOLUME (test code = MCV) 84.1 Fl 84.5-98.6 L MEAN CELL HGB (test code = MCH) 24.2 pg 27.0-34.2 L MEAN CELL HGB CONCETRATION (test code = MCHC) 28.8 G/DL 31.5-34.0 L RED CELL DISTRIBUTION WIDTH (test code = RDW) 16.9 SD 11.5-14.5 H PLATELET COUNT (test code = PLT) 483 K/mm3 150-450 H MEAN PLATELET VOLUME (test c ode = MPV) 10.70 fL 7.0-10.5 H NEUTROPHIL % (test code = NT%) 81.2 % 40-76 H IMMATURE GRANULOCYTE % (test code = IG%) 0.6 % 0.0-5.0 N LYMPHOCYTE % (test code = LY%) 10.6 % 20.5-51.1 L MONOCYTE % (test code = MO%) 5.8 % 1.7-9.3 N EOSINOPHIL % (test code = EO%) 1.0 % 0.0-6.0 N BASOPHIL % (test code = BA%) 0.8 % 0.0-2.0 N NUCLEATED RBC % (test code = NRBC%) 0.0 /100WBC% 0.0-1.0 N NEUTROPHIL # (test code = NT#) 10.4 K/mm3 1.8-7.6 H IMMATURE GRANULOCYTE # (test code = IG#) 0.08 x10 3/uL 0.00-0.03 H LYMPHOCYTE # (test code = LY#) 1.4 K/mm3 0.6-3.2 N MONOCYTE # (test code = MO#) 0.7 K/mm3 0.3-1.1 N EOSINOPHIL # (test code = EO#) 0.1 K/mm3 0.0-0.4 N BASOPHIL # (test code = BA#) 0.1 K/mm3 0.0-0.1 N NUCLEATED RBC # (test code = NRBC#) 0.0 K/mm3 0.0-0.1 N MANUAL DIFF REQUIRED (test c ode = MDIFF) NO DIFF/SCN CRITERIA RBC [id number] 17:59:00* Test Item Value Reference Range Interpretation Comme nts HYPOCHROMIA (test code = HYPO) 1+ ON SCAN NONE PLATELET ESTIMATE (test code = PLTEST) ADEQUATE THOUSAND ADEQUATE PLATELET MORPHOLOGY (test code = PLTMORPH) NORMAL BASIC METABOLIC [id number] 16:47:00* Test Item Value Reference Range Interpretation Comme nts SODIUM (test code = NA) 136 mmol/L 136-145 N POTASSIUM (test code = K) 3.6 mmol/L 3.4-5.0 N CHLORIDE (test code = CL) 97 mmol/L 98-107 L CARBON DIOXIDE (test code = CO2) 27 mmol/L 21-32 N ANION GAP (test code = GAP) 12 GAP calc 4-15 N GLUCOSE (test code = GLU) 174 MG/DL 70-110 H BLOOD UREA NITROGEN (test code = BUN) 9 MG/DL 7-18 N GLOMERULAR FILTRATION RATE (test code = GFR) 23 estGFR >60 L The Glomerular Filtration Rate is a calculated parameterbased on serum Creatinine, patient age and sex. GFR valuesless than 60 mL/min/1.73 square meters are indicative ofChronic Kidney Disease. Values less than 15 mL/min/1.73square meters indicate Kidney failure. The calculation forGFR is based on the CKD-EPI (2020) calculation. This formulais race indifferent and is the recommended formula for GFRby the National Kidney Foundation for Adults.The GFR will not calculate if the sex is unknown or if thepatient's age is <18 years. CREATININE (test code = CREAT) 2.3 MG/DL 0.6-1.0 H CALCIUM (test code = CA) 8.6 MG/DL 8.5-10.1 N HEPATIC FUNCTION [id number] 16:47:00* Test Item Value Reference Range Interpretation Comme nts TOTAL PROTEIN (test code = PROT) 7.2 G/DL 6.4-8.2 N ALBUMIN (test code = ALB) 2.5 G/DL 3.4-5.0 L BILIRUBIN TOTAL (test code = BILT) 0.5 MG/DL 0.0-1.0 N BILIRUBIN DIRECT (test code = BILD) 0.2 MG/DL 0.0-0.3 N BILIRUBIN INDIRECT (test cod e = BILIND) 0.30 MG/DL 0.2-1.2 N SGOT/AST (test code = AST) 31 Unit/L 15-37 N SGPT/ALT (test code = ALT) 30 Unit/L 30-65 N ALKALINE PHOSPHATASE TOTAL ( test code = ALKP) 102 Unit/L 50-136 N [id number] 16:47:00* Test Item Value Reference Range Interpretation Comme nts LIPASE (test code = LIP) 61 Unit/L 13-75 N NT PRO-BRAIN NATRIURETIC [id number] 16:47:00* Test Item Value Reference Range Interpretation [facility] NT PRO-BRAIN NATRIURETIC PEP TI (test code = PROBNP) 7204 PG/ML 0-100 H TROP-I HIGH [id number] 16:47:00* Test Item Value Reference Range Interpretation [facility] TROP-I HIGH SENSITIVITY (test code = TROPIHS) 97.7 ng/L 0-54 H CAUTION: Units o f the current test methodology (ng/L) differfrom the prior test methodology (ng/mL) by a factor of 1000. 99th Percentile Upper Reference Limit (URL):Females: 54 ng/LMales: 79 ng/L In order to distinguish acute elevations of high sensitivitytroponin from other clinical conditions, the FourthUniversal Definition of Myocardial Infarction stressesclinical assessment and the demonstration of a rise and/orfall in serial troponin results above the URL. Results from different methodologies should not be comparedto one another as quantitative results and URLs may varyby method. LACTIC [id number] 16:40:00* Test Item Value Reference Range Interpretation [facility] LACTIC ACID (test code = LACT) 1.6 mmol/L 0.4-1.9 N PROTHROMBIN [id number] 16:20:00* Test Item Value Reference Range Interpretation [facility] PT PATIENT (test code = PTP) 32.4 SECONDS 9.3-12.9 H INTERNATIONAL NORMAL RATIO (test code = INR) 3.01 INR Unit 0.8-1.2 H TARGET INR BY INDICATION Indication INR1. Prophylaxis of venous thrombosis 2.0 - 3.0 (orthopedic surgery), Prophylaxis of venous thrombosis (other than high-risk surgery), Treatment of Deep Vein Thrombosis/Pulmonary Embolism, Prevention of systemic embolism - Tissue heart valves, Acute Myocardial Infarction (to prevent systemic embolism), Valvular heart disease, Acute Myocardial Infarction (to prevent systemic embolism), Valvular heart disease, Atrial Fibrillation, Bileaflet mechanical valve in aortic position.2. Mechanical prosthetic valves (high risk), 2.5 - 3.5 Presence of Lupus Anticoagulant or Antiphospholipid Antibodies, Prevention of systemic embolism - Acute Myocardial Infarction (to prevent recurrent infarct). THROMBOPLASTIN TIME [id number] 16:20:00* Test Item Value Reference Range Interpretation Comme nts THROMBOPLASTIN TIME PARTIAL (test code = PTT) 44.6 SECONDS 26-35 H GLUCOSE BEDSIDE [id number] 17:10:00* Test Item Value Reference Range Interpretation Comme nts GLUCOSE BEDSIDE TESTING (micha t code = GLUBED) 102 mg/dL 70-110 N GLUCOSE BEDSIDE [id number] 11:45:00* Test Item Value Reference Range Interpretation Comme nts GLUCOSE BEDSIDE TESTING (micha t code = GLUBED) 203 mg/dL 70-110 H GLUCOSE BEDSIDE [id number] 08:12:00* Test Item Value Reference Range Interpretation Comme nts GLUCOSE BEDSIDE TESTING (micha t code = GLUBED) 163 mg/dL 70-110 H RBC [id number] 06:51:00* Test Item Value Reference Range Interpretation Comme nts HYPOCHROMIA (test code = HYPO) 2+ ON SCAN NONE A ANISOCYTOSIS (test code = ANISO) 2+ NONE A TEAR DROP CELLS (test code = TEAR) 1+ ON SCAN NONE STOMATOCYTES (test code = STO) 1+ ON SCAN NONE A PLATELET ESTIMATE (test code = PLTEST) INCREASED THOUSAND ADEQUATE PLATELET MORPHOLOGY (test code = PLTMORPH) NORMAL CBC W/AUTO [id number] 06:50:00* Test Item Value Reference Range Interpretation Comme nts WHITE BLOOD CELL (test code = WBC) 10.4 K/mm3 3.5-11.0 N RED BLOOD CELL (test code = RBC) 2.94 M/mm3 4.70-6.10 L HEMOGLOBIN (test code = HGB) 7.0 G/DL 10.4-14.9 L HEMATOCRIT (test code = HCT) 24.6 % 31.5-44.1 L MEAN CELL VOLUME (test code = MCV) 83.7 Fl 84.5-98.6 L MEAN CELL HGB (test code = MCH) 23.8 pg 27.0-34.2 L MEAN CELL HGB CONCETRATION (test code = MCHC) 28.5 G/DL 31.5-34.0 L RED CELL DISTRIBUTION WIDTH (test code = RDW) 16.7 SD 11.5-14.5 H PLATELET COUNT (test code = PLT) 499 K/mm3 150-450 H MEAN PLATELET VOLUME (test c ode = MPV) 11.00 fL 7.0-10.5 H NEUTROPHIL % (test code = NT%) 63.8 % 40-76 N IMMATURE GRANULOCYTE % (test code = IG%) 0.5 % 0.0-5.0 N LYMPHOCYTE % (test code = LY%) 23.1 % 20.5-51.1 N MONOCYTE % (test code = MO%) 9.8 % 1.7-9.3 H EOSINOPHIL % (test code = EO%) 2.0 % 0.0-6.0 N BASOPHIL % (test code = BA%) 0.8 % 0.0-2.0 N NUCLEATED RBC % (test code = NRBC%) 0.0 /100WBC% 0.0-1.0 N NEUTROPHIL # (test code = NT#) 6.7 K/mm3 1.8-7.6 N IMMATURE GRANULOCYTE # (test code = IG#) 0.05 x10 3/uL 0.00-0.03 H LYMPHOCYTE # (test code = LY#) 2.4 K/mm3 0.6-3.2 N MONOCYTE # (test code = MO#) 1.0 K/mm3 0.3-1.1 N EOSINOPHIL # (test code = EO#) 0.2 K/mm3 0.0-0.4 N BASOPHIL # (test code = BA#) 0.1 K/mm3 0.0-0.1 N NUCLEATED RBC # (test code = NRBC#) 0.0 K/mm3 0.0-0.1 N BASIC METABOLIC [id number] 03:38:00* Test Item Value Reference Range Interpretation Comme nts SODIUM (test code = NA) 135 mmol/L 136-145 L POTASSIUM (test code = K) 3.9 mmol/L 3.4-5.0 N CHLORIDE (test code = CL) 99 mmol/L 98-107 N CARBON DIOXIDE (test code = CO2) 26 mmol/L 21-32 N ANION GAP (test code = GAP) 10 GAP calc 4-15 N GLUCOSE (test code = GLU) 233 MG/DL 70-110 H BLOOD UREA NITROGEN (test code = BUN) 16 MG/DL 7-18 N GLOMERULAR FILTRATION RATE (test code = GFR) 16 estGFR >60 L The Glomerular Filtration Rate is a calculated parameterbased on serum Creatinine, patient age and sex. GFR valuesless than 60 mL/min/1.73 square meters are indicative ofChronic Kidney Disease. Values less than 15 mL/min/1.73square meters indicate Kidney failure. The calculation forGFR is based on the CKD-EPI (2020) calculation. This formulais race indifferent and is the recommended formula for GFRby the National Kidney Foundation for Adults.The GFR will not calculate if the sex is unknown or if thepatient's age is <18 years. CREATININE (test code = CREAT) 3.2 MG/DL 0.6-1.0 H CALCIUM (test code = CA) 8.7 MG/DL 8.5-10.1 N GLUCOSE BEDSIDE [id number] 20:27:00* Test Item Value Reference Range Interpretation Comme nts GLUCOSE BEDSIDE TESTING (micha t code = GLUBED) 192 mg/dL 70-110 H GLUCOSE BEDSIDE [id number] 17:02:00* Test Item Value Reference Range Interpretation Comme nts GLUCOSE BEDSIDE TESTING (micha t code = GLUBED) 128 mg/dL 70-110 H GLUCOSE BEDSIDE [id number] 12:12:00* Test Item Value Reference Range Interpretation Comme nts GLUCOSE BEDSIDE TESTING (micha t code = GLUBED) 171 mg/dL 70-110 H GLUCOSE BEDSIDE [id number] 09:06:00* Test Item Value Reference Range Interpretation Comme nts GLUCOSE BEDSIDE TESTING (micha t code = GLUBED) 307 mg/dL 70-110 H CBC W/AUTO [id number] 07:34:00* Test Item Value Reference Range Interpretation Comme nts WHITE BLOOD CELL (test code = WBC) 11.2 K/mm3 3.5-11.0 H RED BLOOD CELL (test code = RBC) 3.13 M/mm3 4.70-6.10 L HEMOGLOBIN (test code = HGB) 7.5 G/DL 10.4-14.9 L HEMATOCRIT (test code = HCT) 26.4 % 31.5-44.1 L MEAN CELL VOLUME (test code = MCV) 84.3 Fl 84.5-98.6 L MEAN CELL HGB (test code = MCH) 24.0 pg 27.0-34.2 L MEAN CELL HGB CONCETRATION ( test code = MCHC) 28.4 G/DL 31.5-34.0 L RED CELL DISTRIBUTION WIDTH (test code = RDW) 16.7 SD 11.5-14.5 H PLATELET COUNT (test code = PLT) 546 K/mm3 150-450 H MEAN PLATELET VOLUME (test c ode = MPV) 11.10 fL 7.0-10.5 H NEUTROPHIL % (test code = NT%) % 40-76 N IMMATURE GRANULOCYTE % (test code = IG%) % 0.0-5.0 N LYMPHOCYTE % (test code = LY%) % 20.5-51.1 L MONOCYTE % (test code = MO%) % 1.7-9.3 H EOSINOPHIL % (test code = EO%) % 0.0-6.0 N BASOPHIL % (test code = BA%) % 0.0-2.0 N NUCLEATED RBC % (test code = NRBC%) /100WBC% 0.0-1.0 N NEUTROPHIL # (test code = NT#) K/mm3 1.8-7.6 N IMMATURE GRANULOCYTE # (test code = IG#) x10 3/uL 0.00-0.03 H LYMPHOCYTE # (test code = LY#) K/mm3 0.6-3.2 N MONOCYTE # (test code = MO#) K/mm3 0.3-1.1 H EOSINOPHIL # (test code = EO#) K/mm3 0.0-0.4 N BASOPHIL # (test code = BA#) K/mm3 0.0-0.1 N NUCLEATED RBC # (test code = NRBC#) K/mm3 0.0-0.1 N MANUAL DIFF REQUIRED (test c ode = MDIFF) YES DIFF/SCN CRITERIA WBC [id number] 07:34:00* Test Item Value Reference Range Interpretation Comme nts SEGMENTED NEUTROPHILS (test code = SEG) 74 % 40-75 N LYMPHOCYTE (test code = LYMPH) 13 % 18.7-40.6 L ATYPICAL LYMPH (test code = ALYMPH) 3 % 0-0 H MONOCYTE (test code = MON) 8 % 3.8-11.4 N HYPOCHROMIA (test code = HYPO) 2+ ON SCAN NONE A ANISOCYTOSIS (test code = ANISO) 1+ NONE MICROCYTOSIS (test code = MICR) 1+ ON SCAN NONE MACROCYTOSIS (test code = MACR) 1+ ON SCAN NONE TEAR DROP CELLS (test code = TEAR) 1+ ON SCAN NONE PLATELET ESTIMATE (test code = PLTEST) ADEQUATE THOUSAND ADEQUATE PLATELET MORPHOLOGY (test code = PLTMORPH) NORMAL BASIC METABOLIC [id number] 05:59:00* Test Item Value Reference Range Interpretation Comme nts SODIUM (test code = NA) 134 mmol/L 136-145 L POTASSIUM (test code = K) 4.5 mmol/L 3.4-5.0 N CHLORIDE (test code = CL) 99 mmol/L 98-107 N CARBON DIOXIDE (test code = CO2) 27 mmol/L 21-32 N ANION GAP (test code = GAP) 8 GAP calc 4-15 N GLUCOSE (test code = GLU) 180 MG/DL 70-110 H BLOOD UREA NITROGEN (test code = BUN) 15 MG/DL 7-18 N GLOMERULAR FILTRATION RATE (test code = GFR) 18 estGFR >60 L The Glomerular Filtration Rate is a calculated parameterbased on serum Creatinine, patient age and sex. GFR valuesless than 60 mL/min/1.73 square meters are indicative ofChronic Kidney Disease. Values less than 15 mL/min/1.73square meters indicate Kidney failure. The calculation forGFR is based on the CKD-EPI (2020) calculation. This formulais race indifferent and is the recommended formula for GFRby the National Kidney Foundation for Adults.The GFR will not calculate if the sex is unknown or if thepatient's age is <18 years. CREATININE (test code = CREAT) 2.9 MG/DL 0.6-1.0 H CALCIUM (test code = CA) 9.3 MG/DL 8.5-10.1 N [id number] 05:59:00* Test Item Value Reference Range Interpretation Comme nts MAGNESIUM (test code = MAG) 1.9 MG/DL 1.8-2.4 N GLUCOSE BEDSIDE [id number] 21:31:00* Test Item Value Reference Range Interpretation Comme nts GLUCOSE BEDSIDE TESTING (micha t code = GLUBED) 219 mg/dL 70-110 H GLUCOSE BEDSIDE [id number] 16:18:00* Test Item Value Reference Range Interpretation Comme nts GLUCOSE BEDSIDE TESTING (micha t code = GLUBED) 208 mg/dL 70-110 H GLUCOSE BEDSIDE [id number] 11:50:00* Test Item Value Reference Range Interpretation Comme nts GLUCOSE BEDSIDE TESTING (micha t code = GLUBED) 193 mg/dL 70-110 H BASIC METABOLIC [id number] 09:51:00* Test Item Value Reference Range Interpretation Comme nts SODIUM (test code = NA) 134 mmol/L 136-145 L POTASSIUM (test code = K) 3.8 mmol/L 3.4-5.0 N CHLORIDE (test code = CL) 100 mmol/L 98-107 N CARBON DIOXIDE (test code = CO2) 31 mmol/L 21-32 N ANION GAP (test code = GAP) 3 GAP calc 4-15 L GLUCOSE (test code = GLU) 219 MG/DL 70-110 H BLOOD UREA NITROGEN (test code = BUN) 15 MG/DL 7-18 N GLOMERULAR FILTRATION RATE (test code = GFR) 20 estGFR >60 L The Glomerular Filtration Rate is a calculated parameterbased on serum Creatinine, patient age and sex. GFR valuesless than 60 mL/min/1.73 square meters are indicative ofChronic Kidney Disease. Values less than 15 mL/min/1.73square meters indicate Kidney failure. The calculation forGFR is based on the CKD-EPI (2020) calculation. This formulais race indifferent and is the recommended formula for GFRby the National Kidney Foundation for Adults.The GFR will not calculate if the sex is unknown or if thepatient's age is <18 years. CREATININE (test code = CREAT) 2.6 MG/DL 0.6-1.0 H CALCIUM (test code = CA) 8.5 MG/DL 8.5-10.1 N [id number] 09:51:00* Test Item Value Reference Range Interpretation Comme nts PHOSPHOROUS (test code = PHOS) 3.3 MG/DL 2.5-4.9 N [id number] 09:51:00* Test Item Value Reference Range Interpretation Comme nts MAGNESIUM (test code = MAG) 1.6 MG/DL 1.8-2.4 L GLUCOSE BEDSIDE [id number] 08:01:00* Test Item Value Reference Range Interpretation Comme nts GLUCOSE BEDSIDE TESTING (micha t code = GLUBED) 123 mg/dL 70-110 H AB HEPATITIS B [id number] 00:07:00* Test Item Value Reference Range Interpretation Comme nts AB HEPATITIS B SURFACE (test code = HBSAB) 232.0 mIU/mL See_Comment Status of Immuni ty Anti-HBs Level Inconsi stent with Immunity 0.0 - 10.0Consistent with Immunity >10.0Performed At: [facility] [address] [id number] Kyle L MD Ph:[phone] [Automated message] The system which generated this result transmitted reference range: Immunity>10. The reference range was not used to interpret this result as normal/abnormal. AG HEPATITIS B [id number] 00:07:00* Test Item Value Reference Range Interpretation Comme nts AG HEPATITIS B SURFACE (test code = HBSAG) NEGATIVE SCREEN NEGATIVE SED [id number] 21:49:00* Test Item Value Reference Range Interpretation Comme nts SED RATE (test code = SEDW) 62 mm/hr 0-20 H SED RATE [id number] 21:48:00* Test Item Value Reference Range Interpretation Comme nts SED RATE WESTERGREN (test co de = SEDW) 62 mm/hr 0-20 H GLUCOSE BEDSIDE [id number] 20:25:00* Test Item Value Reference Range Interpretation Comme nts GLUCOSE BEDSIDE TESTING (micha t code = GLUBED) 193 mg/dL 70-110 H C REACTIVE [id number] 18:35:00* Test Item Value Reference Range Interpretation Comme nts C REACTIVE PROTEIN (test cod e = CRP) 3.8 MG/DL 0-0.9 H [id number] 18:32:00* Test Item Value Reference Range Interpretation Comme nts MAGNESIUM (test code = MAG) 1.8 MG/DL 1.8-2.4 N GLUCOSE BEDSIDE [id number] 16:56:00* Test Item Value Reference Range Interpretation Comme nts GLUCOSE BEDSIDE TESTING (micha t code = GLUBED) 111 mg/dL 70-110 H GLUCOSE BEDSIDE [id number] 12:20:00* Test Item Value Reference Range Interpretation Comme nts GLUCOSE BEDSIDE TESTING (micha t code = GLUBED) 237 mg/dL 70-110 H GLUCOSE BEDSIDE [id number] 08:26:00* Test Item Value Reference Range Interpretation Comme nts GLUCOSE BEDSIDE TESTING (micha t code = GLUBED) 262 mg/dL 70-110 H GLUCOSE BEDSIDE [id number] 21:09:00* Test Item Value Reference Range Interpretation Comme nts GLUCOSE BEDSIDE TESTING (micha t code = GLUBED) 325 mg/dL 70-110 H GLUCOSE BEDSIDE [id number] 16:44:00* Test Item Value Reference Range Interpretation Comme nts GLUCOSE BEDSIDE TESTING (micha t code = GLUBED) 187 mg/dL 70-110 H COVID 19 INHOUSE [id number] 15:51:00* Test Item Value Reference Range Interpretation Comme nts COVID 19 INHOUSE AG (test code = [id number]) NEGATIVE Negative Per [employer]ometric[employer] professor , negative results should be treated aspresumptive and, if inconsistent with clinical signs andsymptoms or necessary for patient management, should betested with an alternative molecular assay. Negative resultsdo not preclude SARS-CoV-2 infection and should not be usedas the sole basis for patient management decisions. Negative results should be considered in the context of apatient's recent exposures, history, presence of clinicalsigns and symptoms consistent with COVID-19. [id number] 09:07:00* Test Item Value Reference Range Interpretation Comme [facility] D-DIMER (test code = DDIMER) 6653 ng/mLFEU 215-500 HH THROMBOSIS AND/O R PULMONARY EMBOLISM AND THE CLINICAL CUT-OFF VALUE FOR EXCLUSION (500 ng/mL FEU) OF THESE CONDITIONSIS VALIDATED BY THE OPERATIONS RESEARCH DIRECTOR OF THE METHOD. A NEGATIVE D-DIMER RESULT WHEN COMBINED WITH A CLINICALASSESSMENT OF LOW PRETEST PROBABILITY HAS BEEN SHOWN TO HAVEA HIGH NEGATIVE PREDICTIVE VALUE OF DVT OR PE. D-DIMER VALUES >500 ng/mL FEU ARE NOT DIAGNOSTIC FOR DVT, PEor DIC WITHOUT OTHER CONFIRMATORY TESTS AND APPROPRIATECLINICAL EUALUATIONS. GLUCOSE BEDSIDE [id number] 09:04:00* Test Item Value Reference Range Interpretation Comme nts GLUCOSE BEDSIDE TESTING (micha t code = GLUBED) 379 mg/dL 70-110 H TROP-I HIGH [id number] 07:04:00* Test Item Value Reference Range Interpretation Comme nts TROP-I HIGH SENSITIVITY (test code = TROPIHS) 119.4 ng/L 0-54 H CAUTION: Units o f the current test methodology (ng/L) differfrom the prior test methodology (ng/mL) by a factor of 1000. 99th Percentile Upper Reference Limit (URL):Females: 54 ng/LMales: 79 ng/L In order to distinguish acute elevations of high sensitivitytroponin from other clinical conditions, the FourthUniversal Definition of Myocardial Infarction stressesclinical assessment and the demonstration of a rise and/orfall in serial troponin results above the URL. Results from different methodologies should not be comparedto one another as quantitative results and URLs may varyby method. BASIC METABOLIC [id number] 05:59:00* Test Item Value Reference Range Interpretation Comme nts SODIUM (test code = NA) 133 mmol/L 136-145 L POTASSIUM (test code = K) 4.1 mmol/L 3.4-5.0 N CHLORIDE (test code = CL) 96 mmol/L 98-107 L CARBON DIOXIDE (test code = CO2) 30 mmol/L 21-32 N ANION GAP (test code = GAP) 7 GAP calc 4-15 N GLUCOSE (test code = GLU) 428 MG/DL 70-110 H BLOOD UREA NITROGEN (test code = BUN) 25 MG/DL 7-18 H GLOMERULAR FILTRATION RATE (test code = GFR) 17 estGFR >60 L The Glomerular Filtration Rate is a calculated parameterbased on serum Creatinine, patient age and sex. GFR valuesless than 60 mL/min/1.73 square meters are indicative ofChronic Kidney Disease. Values less than 15 mL/min/1.73square meters indicate Kidney failure. The calculation forGFR is based on the CKD-EPI (2020) calculation. This formulais race indifferent and is the recommended formula for GFRby the National Kidney Foundation for Adults.The GFR will not calculate if the sex is unknown or if thepatient's age is <18 years. CREATININE (test code = CREAT) 3.0 MG/DL 0.6-1.0 H CALCIUM (test code = CA) 8.7 MG/DL 8.5-10.1 N NT PRO-BRAIN NATRIURETIC [id number] 05:59:00* Test Item Value Reference Range Interpretation Comme nts NT PRO-BRAIN NATRIURETIC PEP TI (test code = PROBNP) 8899 PG/ML 0-100 H TROP-I HIGH [id number] 05:59:00* Test Item Value Reference Range Interpretation Comme nts TROP-I HIGH SENSITIVITY (test code = TROPIHS) 134.7 ng/L 0-54 HH RESULTS CALLED Mónica SHERIDAN RNREAD BACK & CONFIRMED? [facility] 04/29/24 0558CAUTION: Units of the current test methodology (ng/L) differfrom the prior test methodology (ng/mL) by a factor of 1000. 99th Percentile Upper Reference Limit (URL):Females: 54 ng/LMales: 79 ng/L In order to distinguish acute elevations of high sensitivitytroponin from other clinical conditions, the FourthUniversal Definition of Myocardial Infarction stressesclinical assessment and the demonstration of a rise and/orfall in serial troponin results above the URL. Results from different methodologies should not be comparedto one another as quantitative results and URLs may varyby method. CBC W/AUTO [id number] 05:47:00* Test Item Value Reference Range Interpretation Comme nts WHITE BLOOD CELL (test code = WBC) 9.2 K/mm3 3.5-11.0 N RED BLOOD CELL (test code = RBC) 3.19 M/mm3 4.70-6.10 L HEMOGLOBIN (test code = HGB) 7.8 G/DL 10.4-14.9 L HEMATOCRIT (test code = HCT) 27.0 % 31.5-44.1 L MEAN CELL VOLUME (test code = MCV) 84.6 Fl 84.5-98.6 N MEAN CELL HGB (test code = MCH) 24.5 pg 27.0-34.2 L MEAN CELL HGB CONCETRATION (test code = MCHC) 28.9 G/DL 31.5-34.0 L RED CELL DISTRIBUTION WIDTH (test code = RDW) 16.3 SD 11.5-14.5 H PLATELET COUNT (test code = PLT) 412 K/mm3 150-450 N MEAN PLATELET VOLUME (test c ode = MPV) 11.40 fL 7.0-10.5 H NEUTROPHIL % (test code = NT%) 66.3 % 40-76 N IMMATURE GRANULOCYTE % (test code = IG%) 0.7 % 0.0-5.0 N LYMPHOCYTE % (test code = LY%) 17.8 % 20.5-51.1 L MONOCYTE % (test code = MO%) 12.0 % 1.7-9.3 H EOSINOPHIL % (test code = EO%) 2.2 % 0.0-6.0 N BASOPHIL % (test code = BA%) 1.0 % 0.0-2.0 N NUCLEATED RBC % (test code = NRBC%) 0.0 /100WBC% 0.0-1.0 N NEUTROPHIL # (test code = NT#) 6.1 K/mm3 1.8-7.6 N IMMATURE GRANULOCYTE # (test code = IG#) 0.06 x10 3/uL 0.00-0.03 H LYMPHOCYTE # (test code = LY#) 1.6 K/mm3 0.6-3.2 N MONOCYTE # (test code = MO#) 1.1 K/mm3 0.3-1.1 N EOSINOPHIL # (test code = EO#) 0.2 K/mm3 0.0-0.4 N BASOPHIL # (test code = BA#) 0.1 K/mm3 0.0-0.1 N NUCLEATED RBC # (test code = NRBC#) 0.0 K/mm3 0.0-0.1 N GLUCOSE BEDSIDE [id number] 12:02:00* Test Item Value Reference Range Interpretation Comme nts GLUCOSE BEDSIDE TESTING (micha t code = GLUBED) 249 mg/dL 70-110 H BASIC METABOLIC [id number] 05:43:00* Test Item Value Reference Range Interpretation Comme nts SODIUM (test code = NA) 133 mmol/L 136-145 L POTASSIUM (test code = K) 4.0 mmol/L 3.4-5.0 N CHLORIDE (test code = CL) 98 mmol/L 98-107 N CARBON DIOXIDE (test code = CO2) 29 mmol/L 21-32 N ANION GAP (test code = GAP) 6 GAP calc 4-15 N GLUCOSE (test code = GLU) 142 MG/DL 70-110 H BLOOD UREA NITROGEN (test code = BUN) 20 MG/DL 7-18 H GLOMERULAR FILTRATION RATE (test code = GFR) 12 estGFR >60 L The Glomerular Filtration Rate is a calculated parameterbased on serum Creatinine, patient age and sex. GFR valuesless than 60 mL/min/1.73 square meters are indicative ofChronic Kidney Disease. Values less than 15 mL/min/1.73square meters indicate Kidney failure. The calculation forGFR is based on the CKD-EPI (2020) calculation. This formulais race indifferent and is the recommended formula for GFRby the National Kidney Foundation for Adults.The GFR will not calculate if the sex is unknown or if thepatient's age is <18 years. CREATININE (test code = CREAT) 4.1 MG/DL 0.6-1.0 H CALCIUM (test code = CA) 8.7 MG/DL 8.5-10.1 N [id number] 05:43:00* Test Item Value Reference Range Interpretation Comme nts VANCOMYCIN (test code = VANCO) 8 mcG/ML 5-40 N THROMBOPLASTIN TIME [id number] 05:37:00* Test Item Value Reference Range Interpretation Comme nts THROMBOPLASTIN TIME PARTIAL (test code = PTT) 53.6 SECONDS 26-35 H CBC W/AUTO [id number] 05:30:00* Test Item Value Reference Range Interpretation Comme nts WHITE BLOOD CELL (test code = WBC) 10.6 K/mm3 3.5-11.0 N RED BLOOD CELL (test code = RBC) 3.01 M/mm3 4.70-6.10 L HEMOGLOBIN (test code = HGB) 7.4 G/DL 10.4-14.9 L HEMATOCRIT (test code = HCT) 25.2 % 31.5-44.1 L MEAN CELL VOLUME (test code = MCV) 83.7 Fl 84.5-98.6 L MEAN CELL HGB (test code = MCH) 24.6 pg 27.0-34.2 L MEAN CELL HGB CONCETRATION (test code = MCHC) 29.4 G/DL 31.5-34.0 L RED CELL DISTRIBUTION WIDTH (test code = RDW) 16.6 SD 11.5-14.5 H PLATELET COUNT (test code = PLT) 331 K/mm3 150-450 N MEAN PLATELET VOLUME (test c ode = MPV) 10.80 fL 7.0-10.5 H NEUTROPHIL % (test code = NT%) 67.2 % 40-76 N IMMATURE GRANULOCYTE % (test code = IG%) 0.4 % 0.0-5.0 N LYMPHOCYTE % (test code = LY%) 17.8 % 20.5-51.1 L MONOCYTE % (test code = MO%) 13.1 % 1.7-9.3 H EOSINOPHIL % (test code = EO%) 0.9 % 0.0-6.0 N BASOPHIL % (test code = BA%) 0.6 % 0.0-2.0 N NUCLEATED RBC % (test code = NRBC%) 0.0 /100WBC% 0.0-1.0 N NEUTROPHIL # (test code = NT#) 7.1 K/mm3 1.8-7.6 N IMMATURE GRANULOCYTE # (test code = IG#) 0.04 x10 3/uL 0.00-0.03 H LYMPHOCYTE # (test code = LY#) 1.9 K/mm3 0.6-3.2 N MONOCYTE # (test code = MO#) 1.4 K/mm3 0.3-1.1 H EOSINOPHIL # (test code = EO#) 0.1 K/mm3 0.0-0.4 N BASOPHIL # (test code = BA#) 0.1 K/mm3 0.0-0.1 N NUCLEATED RBC # (test code = NRBC#) 0.0 K/mm3 0.0-0.1 N AB MYCOPLASMA [id number] 23:07:00* Test Item Value Reference Range Interpretation Comme nts AB MYCOPLASMA IGM (test code = MYCOMAB) <770 U/mL 0-769 Negative < 770Clinically significant amount of M. pneumoniae antibodynot detected. Low Positive 770 - 950M. pneumoniae specific IgM presumptively detected. Itis recommended that another sample be collected 1-2weeks later to assure reactivity. Positive >950Highly significant amount of M. pneumoniae specificIgM antibody detected.Performed At: [address] [id number] Lyons MD Ph:[phone] AB MYCOPLASMA [id number] 23:07:00* Test Item Value Reference Range Interpretation Comme nts AB MYCOPLASMA IGM (test code = MYCOMAB) <770 U/mL 0-769 Negative < 770Clinically significant amount of M. pneumoniae antibodynot detected. Low Positive 770 - 950M. pneumoniae specific IgM presumptively detected. Itis recommended that another sample be collected 1-2weeks later to assure reactivity. Positive >950Highly significant amount of M. pneumoniae specificIgM antibody detected.Performed At: [address] [id number] Lyons MD Ph:[phone] GLUCOSE BEDSIDE [id number] 21:18:00* Test Item Value Reference Range Interpretation Comme nts GLUCOSE BEDSIDE TESTING (micha t code = GLUBED) 264 mg/dL 70-110 H GLUCOSE BEDSIDE [id number] 16:32:00* Test Item Value Reference Range Interpretation Comme nts GLUCOSE BEDSIDE TESTING (micha t code = GLUBED) 267 mg/dL 70-110 H GLUCOSE BEDSIDE [id number] 12:18:00* Test Item Value Reference Range Interpretation Comme nts GLUCOSE BEDSIDE TESTING (micha t code = GLUBED) 184 mg/dL 70-110 H GLUCOSE BEDSIDE [id number] 09:05:00* Test Item Value Reference Range Interpretation Comme nts GLUCOSE BEDSIDE TESTING (micha t code = GLUBED) 164 mg/dL 70-110 H THROMBOPLASTIN TIME [id number] 06:01:00* Test Item Value Reference Range Interpretation Comme nts THROMBOPLASTIN TIME PARTIAL (test code = PTT) 51.1 SECONDS 26-35 H CBC W/AUTO [id number] 05:48:00* Test Item Value Reference Range Interpretation Comme nts WHITE BLOOD CELL (test code = WBC) 10.4 K/mm3 3.5-11.0 N RED BLOOD CELL (test code = RBC) 3.16 M/mm3 4.70-6.10 L HEMOGLOBIN (test code = HGB) 7.8 G/DL 10.4-14.9 L HEMATOCRIT (test code = HCT) 26.6 % 31.5-44.1 L MEAN CELL VOLUME (test code = MCV) 84.2 Fl 84.5-98.6 L MEAN CELL HGB (test code = MCH) 24.7 pg 27.0-34.2 L MEAN CELL HGB CONCETRATION (test code = MCHC) 29.3 G/DL 31.5-34.0 L RED CELL DISTRIBUTION WIDTH (test code = RDW) 16.4 SD 11.5-14.5 H PLATELET COUNT (test code = PLT) 365 K/mm3 150-450 N MEAN PLATELET VOLUME (test c ode = MPV) 10.60 fL 7.0-10.5 H NEUTROPHIL % (test code = NT%) 65.2 % 40-76 N IMMATURE GRANULOCYTE % (test code = IG%) 0.3 % 0.0-5.0 N LYMPHOCYTE % (test code = LY%) 19.5 % 20.5-51.1 L MONOCYTE % (test code = MO%) 12.1 % 1.7-9.3 H EOSINOPHIL % (test code = EO%) 1.9 % 0.0-6.0 N BASOPHIL % (test code = BA%) 1.0 % 0.0-2.0 N NUCLEATED RBC % (test code = NRBC%) 0.0 /100WBC% 0.0-1.0 N NEUTROPHIL # (test code = NT#) 6.8 K/mm3 1.8-7.6 N IMMATURE GRANULOCYTE # (test code = IG#) 0.03 x10 3/uL 0.00-0.03 N LYMPHOCYTE # (test code = LY#) 2.0 K/mm3 0.6-3.2 N MONOCYTE # (test code = MO#) 1.3 K/mm3 0.3-1.1 H EOSINOPHIL # (test code = EO#) 0.2 K/mm3 0.0-0.4 N BASOPHIL # (test code = BA#) 0.1 K/mm3 0.0-0.1 N NUCLEATED RBC # (test code = NRBC#) 0.0 K/mm3 0.0-0.1 N GLUCOSE BEDSIDE [id number] 21:23:00* Test Item Value Reference Range Interpretation Comme nts GLUCOSE BEDSIDE TESTING (micha t code = GLUBED) 309 mg/dL 70-110 H GLUCOSE BEDSIDE [id number] 17:04:00* Test Item Value Reference Range Interpretation Comme nts GLUCOSE BEDSIDE TESTING (micha t code = GLUBED) 289 mg/dL 70-110 H GLUCOSE BEDSIDE [id number] 12:06:00* Test Item Value Reference Range Interpretation Comme nts GLUCOSE BEDSIDE TESTING (micha t code = GLUBED) 221 mg/dL 70-110 H GLUCOSE BEDSIDE [id number] 08:12:00* Test Item Value Reference Range Interpretation Comme nts GLUCOSE BEDSIDE TESTING (micha t code = GLUBED) 179 mg/dL 70-110 H RBC [id number] 06:10:00* Test Item Value Reference Range Interpretation Comme nts POLYCHROMASIA (test code = POLC) TRACE ON SCAN NONE HYPOCHROMIA (test code = HYPO) 2+ ON SCAN NONE A ANISOCYTOSIS (test code = ANISO) 2+ NONE A MICROCYTOSIS (test code = MICR) 1+ ON SCAN NONE MACROCYTOSIS (test code = MACR) 2+ ON SCAN NONE A SPHEROCYTES (test code = SPH) TRACE ON SCAN NONE TARGET CELLS (test code = TGT) 2+ ON SCAN NONE A TEAR DROP CELLS (test code = TEAR) 1+ ON SCAN NONE OVALOCYTES (test code = OVAL) 1+ ON SCAN NONE SCHISTOCYTES (test code = DIRK) TRACE ON SCAN NONE PLATELET ESTIMATE (test code = PLTEST) ADEQUATE THOUSAND ADEQUATE PLATELET MORPHOLOGY (test code = PLTMORPH) NORMAL CBC W/AUTO [id number] 06:09:00* Test Item Value Reference Range Interpretation Comme nts WHITE BLOOD CELL (test code = WBC) 9.7 K/mm3 3.5-11.0 N RED BLOOD CELL (test code = RBC) 3.12 M/mm3 4.70-6.10 L HEMOGLOBIN (test code = HGB) 7.6 G/DL 10.4-14.9 L HEMATOCRIT (test code = HCT) 26.5 % 31.5-44.1 L MEAN CELL VOLUME (test code = MCV) 84.9 Fl 84.5-98.6 N MEAN CELL HGB (test code = MCH) 24.4 pg 27.0-34.2 L MEAN CELL HGB CONCETRATION (test code = MCHC) 28.7 G/DL 31.5-34.0 L RED CELL DISTRIBUTION WIDTH (test code = RDW) 16.4 SD 11.5-14.5 H PLATELET COUNT (test code = PLT) 386 K/mm3 150-450 N MEAN PLATELET VOLUME (test c ode = MPV) 10.50 fL 7.0-10.5 N NEUTROPHIL % (test code = NT%) 65.2 % 40-76 N IMMATURE GRANULOCYTE % (test code = IG%) 0.3 % 0.0-5.0 N LYMPHOCYTE % (test code = LY%) 20.4 % 20.5-51.1 L MONOCYTE % (test code = MO%) 10.8 % 1.7-9.3 H EOSINOPHIL % (test code = EO%) 2.0 % 0.0-6.0 N BASOPHIL % (test code = BA%) 1.3 % 0.0-2.0 N NUCLEATED RBC % (test code = NRBC%) 0.0 /100WBC% 0.0-1.0 N NEUTROPHIL # (test code = NT#) 6.3 K/mm3 1.8-7.6 N IMMATURE GRANULOCYTE # (test code = IG#) 0.03 x10 3/uL 0.00-0.03 N LYMPHOCYTE # (test code = LY#) 2.0 K/mm3 0.6-3.2 N MONOCYTE # (test code = MO#) 1.1 K/mm3 0.3-1.1 N EOSINOPHIL # (test code = EO#) 0.2 K/mm3 0.0-0.4 N BASOPHIL # (test code = BA#) 0.1 K/mm3 0.0-0.1 N NUCLEATED RBC # (test code = NRBC#) 0.0 K/mm3 0.0-0.1 N BASIC METABOLIC [id number] 05:26:00* Test Item Value Reference Range Interpretation Comme nts SODIUM (test code = NA) 135 mmol/L 136-145 L POTASSIUM (test code = K) 3.6 mmol/L 3.4-5.0 N CHLORIDE (test code = CL) 98 mmol/L 98-107 N CARBON DIOXIDE (test code = CO2) 28 mmol/L 21-32 N ANION GAP (test code = GAP) 9 GAP calc 4-15 N GLUCOSE (test code = GLU) 176 MG/DL 70-110 H BLOOD UREA NITROGEN (test code = BUN) 14 MG/DL 7-18 N GLOMERULAR FILTRATION RATE (test code = GFR) 15 estGFR >60 L The Glomerular Filtration Rate is a calculated parameterbased on serum Creatinine, patient age and sex. GFR valuesless than 60 mL/min/1.73 square meters are indicative ofChronic Kidney Disease. Values less than 15 mL/min/1.73square meters indicate Kidney failure. The calculation forGFR is based on the CKD-EPI (2020) calculation. This formulais race indifferent and is the recommended formula for GFRby the National Kidney Foundation for Adults.The GFR will not calculate if the sex is unknown or if thepatient's age is <18 years. CREATININE (test code = CREAT) 3.3 MG/DL 0.6-1.0 H CALCIUM (test code = CA) 8.3 MG/DL 8.5-10.1 L THROMBOPLASTIN TIME [id number] 05:23:00* Test Item Value Reference Range Interpretation Comme nts THROMBOPLASTIN TIME PARTIAL (test code = PTT) 53.3 SECONDS 26-35 H THROMBOPLASTIN TIME [id number] 23:35:00* Test Item Value Reference Range Interpretation Comme nts THROMBOPLASTIN TIME PARTIAL (test code = PTT) 55.6 SECONDS 26-35 H GLUCOSE BEDSIDE [id number] 21:22:00* Test Item Value Reference Range Interpretation Comme nts GLUCOSE BEDSIDE TESTING (micha t code = GLUBED) 213 mg/dL 70-110 H THROMBOPLASTIN TIME [id number] 18:28:00* Test Item Value Reference Range Interpretation Comme nts THROMBOPLASTIN TIME PARTIAL (test code = PTT) 57.8 SECONDS 26-35 H GLUCOSE BEDSIDE [id number] 17:05:00* Test Item Value Reference Range Interpretation Comme nts GLUCOSE BEDSIDE TESTING (micha t code = GLUBED) 296 mg/dL 70-110 H GLUCOSE BEDSIDE [id number] 11:50:00* Test Item Value Reference Range Interpretation Comme nts GLUCOSE BEDSIDE TESTING (micha t code = GLUBED) 183 mg/dL 70-110 H THROMBOPLASTIN TIME [id number] 11:03:00* Test Item Value Reference Range Interpretation Comme nts THROMBOPLASTIN TIME PARTIAL (test code = PTT) 44.8 SECONDS 26-35 H GLUCOSE BEDSIDE [id number] 07:55:00* Test Item Value Reference Range Interpretation Comme nts GLUCOSE BEDSIDE TESTING (micha t code = GLUBED) 197 mg/dL 70-110 H AG HEPATITIS B [id number] 07:19:00* Test Item Value Reference Range Interpretation Comme nts AG HEPATITIS B SURFACE (test code = HBSAG) NEGATIVE SCREEN NEGATIVE AB HEPATITIS B [id number] 07:19:00* Test Item Value Reference Range Interpretation Comme nts AB HEPATITIS B CORE (test code = HBCAB) Negative Negative Performed At : [facility] [id number] Sands MD Ph:[phone] AB HEPATITIS B [id number] 07:19:00* Test Item Value Reference Range Interpretation Comme nts AB HEPATITIS B SURFACE (test code = HBSAB) 153.0 mIU/mL See_Comment Status of Immuni ty Anti-HBs Level Incons istent with Immunity 0.0 - 10.0Consistent with Immunity >10.0 [Automated message] The system which generated this result transmitted reference range: Immunity>10. The reference range was not used to interpret this result as normal/abnormal. AG HEPATITIS B [id number] 07:19:00* Test Item Value Reference Range Interpretation Comme nts AG HEPATITIS B SURFACE (test code = HBSAG) NEGATIVE SCREEN NEGATIVE AB HEPATITIS B [id number] 07:19:00* Test Item Value Reference Range Interpretation Comme nts AB HEPATITIS B CORE (test code = HBCAB) Negative Negative Performed At : [facility] [id number] Kyle L MD Ph:[phone] RBC [id number] 04:16:00* Test Item Value Reference Range Interpretation Comme nts POLYCHROMASIA (test code = POLC) 1+ ON SCAN NONE HYPOCHROMIA (test code = HYPO) 3+ ON SCAN NONE A ANISOCYTOSIS (test code = ANISO) 2+ NONE A MICROCYTOSIS (test code = MICR) 1+ ON SCAN NONE MACROCYTOSIS (test code = MACR) 2+ ON SCAN NONE A SPHEROCYTES (test code = SPH) TRACE ON SCAN NONE TARGET CELLS (test code = TGT) 2+ ON SCAN NONE A TEAR DROP CELLS (test code = TEAR) 1+ ON SCAN NONE OVALOCYTES (test code = OVAL) 1+ ON SCAN NONE PLATELET ESTIMATE (test code = PLTEST) SLIGHTLY INCREASED THOUSAND ADEQUATE PLATELET MORPHOLOGY (test code = PLTMORPH) NORMAL CBC W/AUTO [id number] 04:15:00* Test Item Value Reference Range Interpretation Comme nts WHITE BLOOD CELL (test code = WBC) 10.9 K/mm3 3.5-11.0 N RED BLOOD CELL (test code = RBC) 3.08 M/mm3 4.70-6.10 L HEMOGLOBIN (test code = HGB) 7.5 G/DL 10.4-14.9 L HEMATOCRIT (test code = HCT) 26.2 % 31.5-44.1 L MEAN CELL VOLUME (test code = MCV) 85.1 Fl 84.5-98.6 N MEAN CELL HGB (test code = MCH) 24.4 pg 27.0-34.2 L MEAN CELL HGB CONCETRATION (test code = MCHC) 28.6 G/DL 31.5-34.0 L RED CELL DISTRIBUTION WIDTH (test code = RDW) 16.4 SD 11.5-14.5 H PLATELET COUNT (test code = PLT) 406 K/mm3 150-450 N MEAN PLATELET VOLUME (test c ode = MPV) 10.30 fL 7.0-10.5 N NEUTROPHIL % (test code = NT%) 66.3 % 40-76 N IMMATURE GRANULOCYTE % (test code = IG%) 0.4 % 0.0-5.0 N LYMPHOCYTE % (test code = LY%) 17.9 % 20.5-51.1 L MONOCYTE % (test code = MO%) 11.1 % 1.7-9.3 H EOSINOPHIL % (test code = EO%) 2.4 % 0.0-6.0 N BASOPHIL % (test code = BA%) 1.9 % 0.0-2.0 N NUCLEATED RBC % (test code = NRBC%) 0.0 /100WBC% 0.0-1.0 N NEUTROPHIL # (test code = NT#) 7.2 K/mm3 1.8-7.6 N IMMATURE GRANULOCYTE # (test code = IG#) 0.04 x10 3/uL 0.00-0.03 H LYMPHOCYTE # (test code = LY#) 1.9 K/mm3 0.6-3.2 N MONOCYTE # (test code = MO#) 1.2 K/mm3 0.3-1.1 H EOSINOPHIL # (test code = EO#) 0.3 K/mm3 0.0-0.4 N BASOPHIL # (test code = BA#) 0.2 K/mm3 0.0-0.1 H NUCLEATED RBC # (test code = NRBC#) 0.0 K/mm3 0.0-0.1 N THROMBOPLASTIN TIME [id number] 03:49:00* Test Item Value Reference Range Interpretation Comme nts THROMBOPLASTIN TIME PARTIAL (test code = PTT) 115.0 SECONDS 26-35 HH BASIC METABOLIC [id number] 03:29:00* Test Item Value Reference Range Interpretation Comme nts SODIUM (test code = NA) 136 mmol/L 136-145 N POTASSIUM (test code = K) 3.5 mmol/L 3.4-5.0 N CHLORIDE (test code = CL) 99 mmol/L 98-107 N CARBON DIOXIDE (test code = CO2) 26 mmol/L 21-32 N ANION GAP (test code = GAP) 11 GAP calc 4-15 N GLUCOSE (test code = GLU) 152 MG/DL 70-110 H BLOOD UREA NITROGEN (test code = BUN) 15 MG/DL 7-18 N GLOMERULAR FILTRATION RATE (test code = GFR) 15 estGFR >60 L The Glomerular Filtration Rate is a calculated parameterbased on serum Creatinine, patient age and sex. GFR valuesless than 60 mL/min/1.73 square meters are indicative ofChronic Kidney Disease. Values less than 15 mL/min/1.73square meters indicate Kidney failure. The calculation forGFR is based on the CKD-EPI (2020) calculation. This formulais race indifferent and is the recommended formula for GFRby the National Kidney Foundation for Adults.The GFR will not calculate if the sex is unknown or if thepatient's age is <18 years. CREATININE (test code = CREAT) 3.4 MG/DL 0.6-1.0 H CALCIUM (test code = CA) 8.3 MG/DL 8.5-10.1 L TROP-I HIGH [id number] 22:16:00* Test Item Value Reference Range Interpretation Comme [facility] TROP-I HIGH SENSITIVITY (test code = TROPIHS) 536.0 ng/L 0-54 HH RESULTS CALLED Mónica Estela TACO VALENCIABAHMAN BACK & CONFIRMED? YBY [id number] 04/20/24 2216CAUTION: Units of the current test methodology (ng/L) differfrom the prior test methodology (ng/mL) by a factor of 1000. 99th Percentile Upper Reference Limit (URL):Females: 54 ng/LMales: 79 ng/L In order to distinguish acute elevations of high sensitivitytroponin from other clinical conditions, the FourthUniversal Definition of Myocardial Infarction stressesclinical assessment and the demonstration of a rise and/orfall in serial troponin results above the URL. Results from different methodologies should not be comparedto one another as quantitative results and URLs may varyby method. THROMBOPLASTIN TIME [id number] 21:42:00* Test Item Value Reference Range Interpretation Comme [facility] THROMBOPLASTIN TIME PARTIAL (test code = PTT) 83.2 SECONDS 26-35 H GLUCOSE BEDSIDE [id number] 20:37:00* Test Item Value Reference Range Interpretation Comme [facility] GLUCOSE BEDSIDE TESTING (micha t code = GLUBED) 258 mg/dL 70-110 H GLUCOSE BEDSIDE [id number] 17:08:00* Test Item Value Reference Range Interpretation Comme nts GLUCOSE BEDSIDE TESTING (micha t code = GLUBED) 134 mg/dL 70-110 H PROTHROMBIN [id number] 14:06:00* Test Item Value Reference Range Interpretation Comme [facility] PT PATIENT (test code = PTP) 28.5 SECONDS 9.3-12.9 H INTERNATIONAL NORMAL RATIO (test code = INR) 2.64 INR Unit 0.8-1.2 H TARGET INR BY INDICATION Indication INR1. Prophylaxis of venous thrombosis 2.0 - 3.0 (orthopedic surgery), Prophylaxis of venous thrombosis (other than high-risk surgery), Treatment of Deep Vein Thrombosis/Pulmonary Embolism, Prevention of systemic embolism - Tissue heart valves, Acute Myocardial Infarction (to prevent systemic embolism), Valvular heart disease, Acute Myocardial Infarction (to prevent systemic embolism), Valvular heart disease, Atrial Fibrillation, Bileaflet mechanical valve in aortic position.2. Mechanical prosthetic valves (high risk), 2.5 - 3.5 Presence of Lupus Anticoagulant or Antiphospholipid Antibodies, Prevention of systemic embolism - Acute Myocardial Infarction (to prevent recurrent infarct). THROMBOPLASTIN TIME [id number] 14:06:00* Test Item Value Reference Range Interpretation Comme [facility] THROMBOPLASTIN TIME PARTIAL (test code = PTT) 36.5 SECONDS 26-35 H GLUCOSE BEDSIDE [id number] 11:59:00* Test Item Value Reference Range Interpretation Comme [facility] GLUCOSE BEDSIDE TESTING (micha t code = GLUBED) 217 mg/dL 70-110 H GLUCOSE BEDSIDE [id number] 08:23:00* Test Item Value Reference Range Interpretation Comme [facility] GLUCOSE BEDSIDE TESTING (micha t code = GLUBED) 189 mg/dL 70-110 H VANCOMYCIN [id number] 04:59:00* Test Item Value Reference Range Interpretation Comme [facility] VANCOMYCIN TROUGH (test code = VANCT) 26 mcG/ML 5-15 HH TROP-I HIGH [id number] 03:45:00* Test Item Value Reference Range Interpretation Comme [facility] TROP-I HIGH SENSITIVITY (test code = TROPIHS) 605.8 ng/L 0-54 HH RESULTS CALLED Mónica CUBA RNREAD BACK & CONFIRMED? YESBY [id number] 04/20/24 0344CAUTION: Units of the current test methodology (ng/L) differfrom the prior test methodology (ng/mL) by a factor of 1000. 99th Percentile Upper Reference Limit (URL):Females: 54 ng/LMales: 79 ng/L In order to distinguish acute elevations of high sensitivitytroponin from other clinical conditions, the FourthUniversal Definition of Myocardial Infarction stressesclinical assessment and the demonstration of a rise and/orfall in serial troponin results above the URL. Results from different methodologies should not be comparedto one another as quantitative results and URLs may varyby method. BASIC METABOLIC [id number] 03:35:00* Test Item Value Reference Range Interpretation Comme nts SODIUM (test code = NA) 136 mmol/L 136-145 N POTASSIUM (test code = K) 4.0 mmol/L 3.4-5.0 N CHLORIDE (test code = CL) 99 mmol/L 98-107 N CARBON DIOXIDE (test code = CO2) 27 mmol/L 21-32 N ANION GAP (test code = GAP) 10 GAP calc 4-15 N GLUCOSE (test code = GLU) 172 MG/DL 70-110 H BLOOD UREA NITROGEN (test code = BUN) 18 MG/DL 7-18 N GLOMERULAR FILTRATION RATE (test code = GFR) 14 estGFR >60 L The Glomerular Filtration Rate is a calculated parameterbased on serum Creatinine, patient age and sex. GFR valuesless than 60 mL/min/1.73 square meters are indicative ofChronic Kidney Disease. Values less than 15 mL/min/1.73square meters indicate Kidney failure. The calculation forGFR is based on the CKD-EPI (2020) calculation. This formulais race indifferent and is the recommended formula for GFRby the National Kidney Foundation for Adults.The GFR will not calculate if the sex is unknown or if thepatient's age is <18 years. CREATININE (test code = CREAT) 3.6 MG/DL 0.6-1.0 H CALCIUM (test code = CA) 8.5 MG/DL 8.5-10.1 N CBC W/AUTO [id number] 03:17:00* Test Item Value Reference Range Interpretation Comme nts WHITE BLOOD CELL (test code = WBC) 10.5 K/mm3 3.5-11.0 N RED BLOOD CELL (test code = RBC) 3.04 M/mm3 4.70-6.10 L HEMOGLOBIN (test code = HGB) 7.6 G/DL 10.4-14.9 L HEMATOCRIT (test code = HCT) 25.8 % 31.5-44.1 L MEAN CELL VOLUME (test code = MCV) 84.9 Fl 84.5-98.6 N MEAN CELL HGB (test code = MCH) 25.0 pg 27.0-34.2 L MEAN CELL HGB CONCETRATION (test code = MCHC) 29.5 G/DL 31.5-34.0 L RED CELL DISTRIBUTION WIDTH (test code = RDW) 16.7 SD 11.5-14.5 H PLATELET COUNT (test code = PLT) 437 K/mm3 150-450 N MEAN PLATELET VOLUME (test c ode = MPV) 10.20 fL 7.0-10.5 N NEUTROPHIL % (test code = NT%) 67.3 % 40-76 N IMMATURE GRANULOCYTE % (test code = IG%) 0.4 % 0.0-5.0 N LYMPHOCYTE % (test code = LY%) 18.8 % 20.5-51.1 L MONOCYTE % (test code = MO%) 12.1 % 1.7-9.3 H EOSINOPHIL % (test code = EO%) 0.3 % 0.0-6.0 N BASOPHIL % (test code = BA%) 1.1 % 0.0-2.0 N NUCLEATED RBC % (test code = NRBC%) 0.0 /100WBC% 0.0-1.0 N NEUTROPHIL # (test code = NT#) 7.1 K/mm3 1.8-7.6 N IMMATURE GRANULOCYTE # (test code = IG#) 0.04 x10 3/uL 0.00-0.03 H LYMPHOCYTE # (test code = LY#) 2.0 K/mm3 0.6-3.2 N MONOCYTE # (test code = MO#) 1.3 K/mm3 0.3-1.1 H EOSINOPHIL # (test code = EO#) 0.0 K/mm3 0.0-0.4 N BASOPHIL # (test code = BA#) 0.1 K/mm3 0.0-0.1 N NUCLEATED RBC # (test code = NRBC#) 0.0 K/mm3 0.0-0.1 N GLUCOSE BEDSIDE [id number] 21:03:00* Test Item Value Reference Range Interpretation Comme nts GLUCOSE BEDSIDE TESTING (micha t code = GLUBED) 176 mg/dL 70-110 H TROP-I HIGH [id number] 19:11:00* Test Item Value Reference Range Interpretation Comme nts TROP-I HIGH SENSITIVITY (test code = TROPIHS) 631.8 ng/L 0-54 HH RESULTS CALLED Mónica Palmer VIKA KORYVERONICA BACK & CONFIRMED? YBY [id number] 04/19/24 1911CAUTION: Units of the current test methodology (ng/L) differfrom the prior test methodology (ng/mL) by a factor of 1000. 99th Percentile Upper Reference Limit (URL):Females: 54 ng/LMales: 79 ng/L In order to distinguish acute elevations of high sensitivitytroponin from other clinical conditions, the FourthUniversal Definition of Myocardial Infarction stressesclinical assessment and the demonstration of a rise and/orfall in serial troponin results above the URL. Results from different methodologies should not be comparedto one another as quantitative results and URLs may varyby method. LACTIC [id number] 19:08:00* Test Item Value Reference Range Interpretation Comme nts LACTIC ACID (test code = LACT) 1.0 mmol/L 0.4-1.9 GLUCOSE BEDSIDE [id number] 18:16:00* Test Item Value Reference Range Interpretation Comme nts GLUCOSE BEDSIDE TESTING (micha t code = GLUBED) 177 mg/dL 70-110 H TROP-I HIGH [id number] 15:30:00* Test Item Value Reference Range Interpretation Comme nts TROP-I HIGH SENSITIVITY (test code = TROPIHS) 691.5 ng/L 0-54 HH RESULTS CALLED Mónica Palmer BLAKE GUY BACK & CONFIRMED? YBY [id number] 04/19/24 1530CAUTION: Units of the current test methodology (ng/L) differfrom the prior test methodology (ng/mL) by a factor of 1000. 99th Percentile Upper Reference Limit (URL):Females: 54 ng/LMales: 79 ng/L In order to distinguish acute elevations of high sensitivitytroponin from other clinical conditions, the Fourthiversal Definition of Myocardial Infarction stressesclinical assessment and the demonstration of a rise and/orfall in serial troponin results above the URL. Results from different methodologies should not be comparedto one another as quantitative results and URLs may varyby method. LACTIC [id number] 15:24:00* Test Item Value Reference Range Interpretation Comme [facility] LACTIC ACID (test code = LACT) 2.5 mmol/L 0.4-1.9 HH RESULTS CALLED Mónica GUY BACK & CONFIRMED? YBY [id number] 04/19/24 1524 COVID 19 INHOUSE [id number] 13:54:00* Test Item Value Reference Range Interpretation Comme [facility] COVID 19 INHOUSE AG (test code = [id number]) NEGATIVE Negative Per [employer] professor , negative results should be treated aspresumptive and, if inconsistent with clinical signs andsymptoms or necessary for patient management, should betested with an alternative molecular assay. Negative resultsdo not preclude SARS-CoV-2 infection and should not be usedas the sole basis for patient management decisions. Negative results should be considered in the context of apatient's recent exposures, history, presence of clinicalsigns and symptoms consistent with COVID-19. TROP-I HIGH [id number] 13:23:00* Test Item Value Reference Range Interpretation Comme [facility] TROP-I HIGH SENSITIVITY (test code = TROPIHS) 690.9 ng/L 0-54 HH RESULTS CALLED Mónica NIETO RNREAD BACK & CONFIRMED? YESBY [email or web address].[email or web address] 04/19/24 1319CAUTION: Units of the current test methodology (ng/L) differfrom the prior test methodology (ng/mL) by a factor of 1000. 99th Percentile Upper Reference Limit (URL):Females: 54 ng/LMales: 79 ng/L In order to distinguish acute elevations of high sensitivitytroponin from other clinical conditions, the FourthUniversal Definition of Myocardial Infarction stressesclinical assessment and the demonstration of a rise and/orfall in serial troponin results above the URL. Results from different methodologies should not be comparedto one another as quantitative results and URLs may varyby method. [id number] 13:23:00* Test Item Value Reference Range Interpretation Comme nts ALCOHOL (test code = ALC) < 3 MG/DL 0-10 N LACTIC [id number] 13:23:00* Test Item Value Reference Range Interpretation Comme nts LACTIC ACID (test code = LACT) 2.4 mmol/L 0.4-1.9 HH RESULTS CALLED Mónica NIETO RNREAD BACK & CONFIRMED? YESBY a.[email or web address] 04/19/24 1319 BASIC METABOLIC [id number] 13:23:00* Test Item Value Reference Range Interpretation Comme nts SODIUM (test code = NA) 134 mmol/L 136-145 L POTASSIUM (test code = K) 4.1 mmol/L 3.4-5.0 N CHLORIDE (test code = CL) 95 mmol/L 98-107 L CARBON DIOXIDE (test code = CO2) 28 mmol/L 21-32 N ANION GAP (test code = GAP) 11 GAP calc 4-15 N GLUCOSE (test code = GLU) 152 MG/DL 70-110 H BLOOD UREA NITROGEN (test code = BUN) 28 MG/DL 7-18 H GLOMERULAR FILTRATION RATE (test code = GFR) 10 estGFR >60 L The Glomerular Filtration Rate is a calculated parameterbased on serum Creatinine, patient age and sex. GFR valuesless than 60 mL/min/1.73 square meters are indicative ofChronic Kidney Disease. Values less than 15 mL/min/1.73square meters indicate Kidney failure. The calculation forGFR is based on the CKD-EPI (2020) calculation. This formulais race indifferent and is the recommended formula for GFRby the National Kidney Foundation for Adults.The GFR will not calculate if the sex is unknown or if thepatient's age is <18 years. CREATININE (test code = CREAT) 4.8 MG/DL 0.6-1.0 H CALCIUM (test code = CA) 8.3 MG/DL 8.5-10.1 L HEPATIC FUNCTION [id number] 13:23:00* Test Item Value Reference Range Interpretation Comme [facility] TOTAL PROTEIN (test code = PROT) 6.4 G/DL 6.4-8.2 N ALBUMIN (test code = ALB) 2.0 G/DL 3.4-5.0 L BILIRUBIN TOTAL (test code = BILT) 0.8 MG/DL 0.0-1.0 N BILIRUBIN DIRECT (test code = BILD) 0.3 MG/DL 0.0-0.3 N BILIRUBIN INDIRECT (test cod e = BILIND) 0.50 MG/DL 0.2-1.2 N SGOT/AST (test code = AST) 22 Unit/L 15-37 N SGPT/ALT (test code = ALT) 28 Unit/L 30-65 L ALKALINE PHOSPHATASE TOTAL ( test code = ALKP) 84 Unit/L 50-136 N [id number] 13:23:00* Test Item Value Reference Range Interpretation [facility] LIPASE (test code = LIP) 210 Unit/L 13-75 H NT PRO-BRAIN NATRIURETIC [id number] 13:23:00* Test Item Value Reference Range Interpretation [facility] NT PRO-BRAIN NATRIURETIC PEP TI (test code = PROBNP) 98442 PG/ML 0-100 H PROTHROMBIN [id number] 13:05:00* Test Item Value Reference Range Interpretation [facility] PT PATIENT (test code = PTP) 35.4 SECONDS 9.3-12.9 H INTERNATIONAL NORMAL RATIO (test code = INR) 3.29 INR Unit 0.8-1.2 H TARGET INR BY INDICATION Indication INR1. Prophylaxis of venous thrombosis 2.0 - 3.0 (orthopedic surgery), Prophylaxis of venous thrombosis (other than high-risk surgery), Treatment of Deep Vein Thrombosis/Pulmonary Embolism, Prevention of systemic embolism - Tissue heart valves, Acute Myocardial Infarction (to prevent systemic embolism), Valvular heart disease, Acute Myocardial Infarction (to prevent systemic embolism), Valvular heart disease, Atrial Fibrillation, Bileaflet mechanical valve in aortic position.2. Mechanical prosthetic valves (high risk), 2.5 - 3.5 Presence of Lupus Anticoagulant or Antiphospholipid Antibodies, Prevention of systemic embolism - Acute Myocardial Infarction (to prevent recurrent infarct). THROMBOPLASTIN TIME [id number] 13:05:00* Test Item Value Reference Range Interpretation Comme nts THROMBOPLASTIN TIME PARTIAL (test code = PTT) 37.4 SECONDS 26-35 H ECG 12 [id number] 13:21:19* Test Item Value Reference Range Interpretation Comme nts Ventricular Rate (test code = 8244901636) BPM QRS Duration (test code = 5432636241) 82 ms QT/QTc (test code = 3160668124) 352 ms QTc Calculation (test code = 9186093370) 408 ms R-[place] (test code = 5616861217) degrees T[place] (test code = 7026204669) degrees CINDY (test code = CINDY) PXN (test code = PXN) [facility] 12 [id number] 12:59:05* Test Item Value Reference Range Interpretation Comme nts Ventricular Rate (test code = 7482859459) BPM QRS Duration (test code = 8470340827) 74 ms QT/QTc (test code = 9483075130) 370 ms QTc Calculation (test code = 9287926435) 450 ms R-[place] (test code = 5428505170) degrees T[place] (test code = 7664931637) degrees CINDY (test code = CINDY) PXN (test code = PXN) [facility] [id number] 07:47:55* Test Item Value Reference Range Interpretation Comme nts POC Glu (test code = 2666147415) 151 mg/dL 70-99 H POC Performing Location (micha t code = 3558879484) HV8 CVICU Lab Interpretation (test cod e = 59269-3) Abnormal [facility] [id number] 21:34:30* Test Item Value Reference Range Interpretation Comme nts POC Glu (test code = 2385669548) 237 mg/dL 70-99 H POC Performing Location (micha t code = 4834795087) HV4 CIMU Lab Interpretation (test cod e = 20751-9) Abnormal [facility] [id number] 16:51:29* Test Item Value Reference Range Interpretation Comme nts POC Glu (test code = 9472977746) 126 mg/dL 70-99 H POC Glu Comment 1 (test code = 3029999279) Notified RN/MD POC Performing Location (micha t code = 8512980821) [facility] (test cod e = 92500-6) Abnormal [address]2024-11-12 13:25:02* Test Item Value Reference Range Interpretation Comme nts Ventricular Rate (test code = 4376671611) BPM QRS Duration (test code = 4822262989) 80 ms QT/QTc (test code = 5266796196) 362 ms QTc Calculation (test code = 4911891522) 422 ms [place] (test code = 7910314710) degrees [place] (test code = 6547426803) degrees CINDY (test code = CINDY) PXN (test code = PXN) [address]2024-11-12 13:09:51* Test Item Value Reference Range Interpretation Comme nts Ventricular Rate (test code = 4056105949) BPM QRS Duration (test code = 4249773580) 88 ms QT/QTc (test code = 4660274366) 328 ms QTc Calculation (test code = 5082465752) 407 ms [place] (test code = 1189536846) degrees [place] (test code = 4523751290) degrees CINDY (test code = CINDY) PXN (test code = PXN) [address]2024-11-12 13:01:38* Test Item Value Reference Range Interpretation Comme nts Ventricular Rate (test code = 9118253877) BPM QRS Duration (test code = 9940001893) 82 ms QT/QTc (test code = 1363301934) 330 ms QTc Calculation (test code = 5593152590) 412 ms [place] (test code = 1126169644) degrees [place] (test code = 0650785838) degrees CINDY (test code = CINDY) PXN (test code = PXN) [address]2024-11-12 12:25:46* Test Item Value Reference Range Interpretation Comme nts Ventricular Rate (test code = 9790195711) BPM Atrial Rate (test code = 1601348900) BPM QRS Duration (test code = 0913695485) 78 ms QT/QTc (test code = 5711043614) 340 ms QTc Calculation (test code = 7480967570) 389 ms [place] (test code = 4816887351) degrees [place] (test code = 0453734952) degrees CINDY (test code = CINDY) PXN (test code = PXN) [facility] 12 [id number] 12:08:14* Test Item Value Reference Range Interpretation Comme nts Ventricular Rate (test code = 3825791112) BPM Atrial Rate (test code = 3495061426) BPM [place] Interval (test code = 8394579026) 326 ms QRS Duration (test code = 2662189704) 74 ms QT/QTc (test code = 5266429626) 420 ms QTc Calculation (test code = 8811583137) 390 ms P-[place] (test code = 2866222538) degrees R[place] (test code = 0657655407) degrees T[place] (test code = 7824523343) degrees CINDY (test code = CINDY) PXN (test code = PXN) [facility]2024-11-12 11:47:28* Test Item Value Reference Range Interpretation Comme nts POC Glu (test code = 9705371177) 203 mg/dL 70-99 H POC Performing Location (micha t code = 9096873944) HV4 CIMU Lab Interpretation (test cod e = 55596-2) Abnormal [facility]2024-11-12 07:50:06* Test Item Value Reference Range Interpretation Comme nts POC Glu (test code = 7888222794) 201 mg/dL 70-99 H POC Performing Location (micha t code = 7592744066) HV4 [facility]U Lab Interpretation (test cod e = 59814-0) Abnormal [facility]2024-11-11 21:06:49* Test Item Value Reference Range Interpretation Comme nts POC Glu (test code = 4386785483) 301 mg/dL 70-99 H POC Performing Location (micha t code = 9505997693) HV4 C[facility]U Lab Interpretation (test cod e = 63464-7) Abnormal [facility]2024-11-11 16:19:57* Test Item Value Reference Range Interpretation Comme nts POC Glu (test code = 1514200423) 253 mg/dL 70-99 H POC Performing Location (micha t code = 2262714866) HV4 [facility] Lab Interpretation (test cod e = 38843-0) Abnormal [facility] Rdrimlx9366-20-70 13:26:48* Test Item Value Reference Range Interpretation Comme nts POC Glu (test code = 0645584965) 164 mg/dL 70-99 H POC Performing Location (micha t code = 5856649831) 4 CIMU Lab Interpretation (test cod e = 97927-8) Abnormal [facility] Mwanpwl6904-44-09 11:02:31* Test Item Value Reference Range Interpretation Comme nts POC Glu (test code = 8446207244) 178 mg/dL 70-99 H POC Performing Location (micha t code = 1409814321) 4 CIMU Lab Interpretation (test cod e = 72654-7) Abnormal [facility] Yjnfdea3568-81-18 08:53:56* Test Item Value Reference Range Interpretation Comme nts POC Glu (test code = 4793496362) 296 mg/dL 70-99 H POC Glu Comment 1 (test code = 8572967583) Notified RN/MD POC Performing Location (micha t code = 9540067706) 4 CIMU Lab Interpretation (test cod e = 42806-3) Abnormal [facility] Mnanpso7578-55-15 22:14:29* Test Item Value Reference Range Interpretation Comme nts POC Glu (test code = 7758306092) 335 mg/dL 70-99 H POC Glu Comment 1 (test code = 2948420019) Notified RN/MD POC Performing Location (micha t code = 5893037418) 4 CIMU Lab Interpretation (test cod e = 70302-7) Abnormal [facility] Fyjuecb5902-47-19 17:12:29* Test Item Value Reference Range Interpretation Comme nts POC Glu (test code = 7911703650) 306 mg/dL 70-99 H POC Performing Location (micha t code = 9837323479) 4 CIMU Lab Interpretation (test cod e = 35377-1) Abnormal [facility] Myjlyrd4439-89-06 11:47:29* Test Item Value Reference Range Interpretation Comme nts POC Glu (test code = 4533921295) 196 mg/dL 70-99 H POC Performing Location (micha t code = 6364341086) 4 CIMU Lab Interpretation (test cod e = 27948-2) Abnormal [facility] Llvoric1176-42-97 07:29:23* Test Item Value Reference Range Interpretation Comme nts POC Glu (test code = 6286850084) 208 mg/dL 70-99 H POC Performing Location (micha t code = 1740120239) HV8 CVICU Lab Interpretation (test cod e = 00661-6) Abnormal [facility] Vswlopx2584-99-16 21:31:43* Test Item Value Reference Range Interpretation Comme nts POC Glu (test code = 3912771437) 222 mg/dL 70-99 H POC Glu Comment 1 (test code = 9766926144) Notified RN/MD POC Performing Location (micha t code = 6657739721) HV8 CVICU Lab Interpretation (test cod e = 00825-7) Abnormal [facility] Bnjillm6209-22-88 17:52:50* Test Item Value Reference Range Interpretation Comme nts POC Glu (test code = 4928981934) 195 mg/dL 70-99 H POC Performing Location (micha t code = 3914790465) HV4 CCU Lab Interpretation (test cod e = 88874-0) Abnormal [facility] Pkouasc5521-04-36 12:39:14* Test Item Value Reference Range Interpretation Comme nts POC Glu (test code = 2049362225) 237 mg/dL 70-99 H POC Performing Location (micha t code = 8647853133) HV4 CCU Lab Interpretation (test cod e = 68342-2) Abnormal [facility] Zkrmlot1448-61-34 07:53:51* Test Item Value Reference Range Interpretation Comme nts POC Glu (test code = 9934674626) 174 mg/dL 70-99 H POC Performing Location (micha t code = 9184563059) HV4 CCU Lab Interpretation (test cod e = 24992-8) Abnormal [facility] Wkzchde0856-29-68 06:48:17* Test Item Value Reference Range Interpretation Comme nts POC Glu (test code = 3703973898) 165 mg/dL 70-99 H POC Performing Location (micha t code = 0401977867) HV4 CCU Lab Interpretation (test cod e = 82543-8) Abnormal [facility] Aymfuhh9512-43-40 21:32:57* Test Item Value Reference Range Interpretation Comme nts POC Glu (test code = 9138316291) 290 mg/dL 70-99 H POC Performing Location (micha t code = 3328599732) HV4 CCU Lab Interpretation (test cod e = 83037-6) Abnormal [facility] Zvrkbvb1049-07-35 18:46:01* Test Item Value Reference Range Interpretation Comme nts POC Glu (test code = 1184262432) 247 mg/dL 70-99 H POC Performing Location (micha t code = 6873944985) 4 CCU Lab Interpretation (test cod e = 60179-0) Abnormal [facility] Nwceatt4565-00-19 12:35:17* Test Item Value Reference Range Interpretation Comme nts POC Glu (test code = 5395862964) 175 mg/dL 70-99 H POC Glu Comment 1 (test code = 1150960811) Notified RN/MD POC Performing Location (micha t code = 8522584739) 4 CCU Lab Interpretation (test cod e = 70069-0) Abnormal [facility] Saidpkf8202-10-07 22:31:28* Test Item Value Reference Range Interpretation Comme nts POC Glu (test code = 9714996584) 184 mg/dL 70-99 H POC Performing Location (micha t code = 8920982798) 4 CCU Lab Interpretation (test cod e = 76597-6) Abnormal [facility] Hllwwdo4142-55-67 19:17:47* Test Item Value Reference Range Interpretation Comme nts POC Glu (test code = 0853461299) 123 mg/dL 70-99 H POC Performing Location (micha t code = 4263730320) 4 CCU Lab Interpretation (test cod e = 52586-4) Abnormal [facility] 12 vtza0547-48-28 19:00:39* Test Item Value Reference Range Interpretation Comme nts Ventricular Rate (test code = 9050329703) BPM Atrial Rate (test code = 5635836223) BPM QRS Duration (test code = 9523286384) 80 ms QT/QTc (test code = 7001783249) 492 ms QTc Calculation (test code = 2572050277) 380 ms P-[place] (test code = 5511254437) degrees R-[place] (test code = 4714288702) degrees T[place] (test code = 3982214806) degrees CINDY (test code = CINDY) PXN (test code = PXN) [facility] 12 ilif1824-75-01 18:52:23* Test Item Value Reference Range Interpretation Comme nts Ventricular Rate (test code = 5173294647) BPM QRS Duration (test code = 4826594269) 78 ms QT/QTc (test code = 8111200520) 372 ms QTc Calculation (test code = 7419086239) 439 ms R-[place] (test code = 2160822382) degrees T[place] (test code = 3535650736) degrees CINDY (test code = CINDY) PXN (test code = PXN) [facility] 12 yhdh3585-33-98 17:17:24* Test Item Value Reference Range Interpretation Comme nts Ventricular Rate (test code = 9762816621) BPM QRS Duration (test code = 1989382989) 80 ms QT/QTc (test code = 6519200910) 360 ms QTc Calculation (test code = 2788054156) 433 ms R-[place] (test code = 0838602699) degrees T[place] (test code = 5717367845) degrees CINDY (test code = CINDY) PXN (test code = PXN) [facility] yfnnksue1683-02-93 15:10:58* Test Item Value Reference Range Interpretation Comme nts RVOT Vmean (test code = 7228799783) 0.52 m/s LVOT Vmax/AV Vmax (test code = 0649245214) 0.75 {ratio} Ao Root diam diastole (test code = 2033691065) 27 mm LVOT Vmean (test code = 3706687907) 0.52 m/s LV SV (A4C) (test code = 2253039405) 47.9 ml LV SI (A2C) (test code = 2449912162) 37.6 ml LV SV (BP) (test code = 0056754025) 42.7 ml LVLs (A4C) (test code = 5864746623) 58.6 mm LVLs (A2C) (test code = 1035909854) 52.5 mm LVLd (A4C) (test code = 6672365595) 70.8 mm LVLd (A2C) (test code = 7562886835) 70.3 mm PV mn kayla (test code = 5076243094) 0.66 m/s LV ESV A2C (test code = 4267219148) 13.4 mL LV EDV A4C (test code = 4282854867) 85.9 mL LA area A4C (test code = 4363679017) 17.9 cm2 LA area A2C (test code = 3851063346) 21.9 cm2 LV ESV A4C (test code = 5011300532) 38 mL LV EDV A2C (test code = 3819790312) 51 mL TR pk grad (test code = 1542614180) mmHg LA ESV A2C (test code = 1297315831) 69.804550000616209 mL LA ESV A4C (test code = 8781142625) 69.833323041102225 mL LV est EF (test code = 4570514039) 38 % LV EDV BP (test code = 3235225738) 66.3 mL LV ESV BP (test code = 0646072326) 23.6 mL MV A pk kayla (test code = 9081889672) 0.43 m/s MV PHT (test code = 3944929939) 63 ms MV E pk kayla (test code = 1158201803) 1.54 m/s PV mn grad (test code = 1674736221) mmHg AV pk grad (test code = 7087183245) mmHg LV stroke vol (test code = 5333037897) 45 ml RVOT VTI (test code = 0490875027) 14 cm RVOT pk kayla (test code = 0557943622) 0.77 m/s AV VTI (test code = 6310909514) 20.9 cm AV pk kayla (test code = 0036709708) 1.1 m/s LVOT VTI (test code = 7528464611) 16 cm LVOT pk kayla (test code = 0870197799) 0.82 m/s LVOT area (test code = 6696717501) 2.84 cm2 LVOT diam (test code = 3170100089) 19 mm MV DT (test code = 4573594534) 216 ms MV E/A ratio (test code = 9372943880) PV pk grad (test code = 0110884494) mmHg MV area PHT (test code = 4298509586) 3.49 cm2 LVOT pk grad (test code = 6588483343) mmHg AV mn grad (test code = 5442734181) mmHg RVOT mn grad (test code = 9508713787) mmHg RVOT pk grad (test code = 3808436874) mmHg TR pk kayla (test code = 9593580468) 2.77 m/s AV area pk kayla (test code = 8113035190) 2.12 cm2 AV area cont VTI (test code = 7180583291) 2.17 cm2 LVOT mn grad (test code = 9739284757) mmHg RV-rela mid diam (test code = 3278655673) 29 cm RV-real basal diam (test code = 3430367613) 37 cm RV-real longitudinal diam (test code = 9845769531) 73 cm LV A4C EF (test code = 5682292017) 56 % LV A2C EF (test code = 2695742446) 74 % AV mn kayla (test code = 4005228727) 0.85 m/s LVPWd (test code = 2823558709) 12 mm LA size (test code = 4873724144) 36 mm Ascending aorta (test code = 2963695795) [address] junction (test code = 2223943814) 20 mm LA vol BP (test code = 0844103764) 58.8 ml LV biplane EF (test code = 9897943285) 64.4 % Fractional Shortening 2D (test code = 2655439485) 18 % LVIDs (test code = 1398435567) 36 mm IVSd (test code = 1237331803) 11 mm LVIDd (test code = 3638268103) 44 mm PV pk kayla (test code = 0273788346) 0.98 m/s PV VTI (test code = 4341557) 16.2 cm LV ESV 2D (test code = 4166993) 54.1 mL LV EDV 2D (test code = 2477251) 87.7 mL IVSd 2D (test code = 4767341) 10.5 cm BSA (test code = 7863924529) 1.98 m2 RVSP (test code = 5338781) mmHg Radiology Study observation (narrative) (test code = 98191-8) CINDY (test code = CINDY) [facility] Zqwyirz9622-35-15 06:24:11* Test Item Value Reference Range Interpretation Comme nts POC Glu (test code = 6723069878) 215 mg/dL 70-99 H POC Glu Comment 1 (test code = 3753377993) Notified RN/MD POC Performing Location (micha t code = 8347601702) HV4 CCU Lab Interpretation (test cod e = 49639-3) Abnormal [facility] Venous Blood Gas and Comprehensive Abifj0799-85-82 03:52:10* Test Item Value Reference Range Interpretation Comme nts POC V Temp (test code = 2377119731) DegC POC V Source (test code = 3072727611) JOHANNA POC V PO2 (test code = 2705-2) See_Comment [[employer]ated [employer]] The system which generated this result transmitted reference range: 20 - 49 mmHg. The reference range was not used to interpret this result as normal/abnormal. POC V pH (test code = 2746-6) 7.28-7.42 POC V PCO2 (test code = 2021-) See_Comment [Automated [employer]] The system which generated this result transmitted reference range: 38 - 52 mmHg. The reference range was not used to interpret this result as normal/abnormal. POC V Oxyhgb (test code = 1674922968) 48.1 % 95-100 L POC V O2 Sat (vanna) (test code = 9548061306) 48.8 % 40.0-70.0 POC V O2 Sat (calc) (test code = 2711-0) 60 % 40-70 POC V HCO3 (test code = 22749-3) 26 mmol/L 22-26 POC V Carboxy (test code = 7755603957) Non-Smoker: 0.0-2.0 Smoker: 0.0-9.0 % Reference RangeNon-Smoker 0.0-2.0 ? ?Smoker 0.0-9.0 POC V BE (test code = 1927-3) 1 mmol/L -2-2 POC V Methgb (test code = 2617-9) 1.3 % 0.0-1.4 POC V Hgb Tot (test code = 09905-6) 8.7 g/dL 11.2-15.7 L POC V Hct (calc) (test code = 08233-3) 26 % 34.1-44.9 L POC V Na (test code = 36100-7) See_Comment L [Automated messa ge] The system which generated this result transmitted reference range: 135 - 145 mEq/L. The reference range was not used to interpret this result as normal/abnormal. POC V K (test code = 47828-2) See_Comment [Automated messa ge] The system which generated this result transmitted reference range: 3.5 - 5.1 mEq/L. The reference range was not used to interpret this result as normal/abnormal. POC V Cl (test code = 36449-7) See_Comment [Automated messa ge] The system which generated this result transmitted reference range: 95 - 109 mEq/L. The reference range was not used to interpret this result as normal/abnormal. POC V Glu (test code = 57155-1) 265 mg/dL 70-99 H POC V LA (test code = 2519-7) See_Comment [Automated messa ge] The system which generated this result transmitted reference range: 0.5 - 2.2 mMol/L. The reference range was not used to interpret this result as normal/abnormal. POC V Ca Ion (test code = 64432-7) See_Comment [Automated messa ge] The system which generated this result transmitted reference range: 1.05 - 1.25 mMol/L. The reference range was not used to interpret this result as normal/abnormal. POC V Ca Ion (7.4) (test code = 4222717754) See_Comment [Automated messa ge] The system which generated this result transmitted reference range: 1.05 - 1.25 mMol/L. The reference range was not used to interpret this result as normal/abnormal. POC V Mode #1 (test code = 4182976827) BiPAP POC V %FIO2 (test code = 6264706943) 30 % POC V BIPAP(I) (test code = 3412694688) cmH20 POC V BIPAP(E) (test code = 0201124731) cmH20 POC Performing Location (test code = 3562555837) HVI BG CLI Lab Interpretation (test code = 82328-4) Abnormal [facility] Venous Blood Gas and Comprehensive Cojyy6587-24-32 20:42:41* Test Item Value Reference Range Interpretation Comme nts POC V Temp (test code = 0064107026) DegC POC V Source (test code = 8496824167) JOHANNA POC V PO2 (test code = 2705-2) See_Comment [Automated messa ge] The system which generated this result transmitted reference range: 20 - 49 mmHg. The reference range was not used to interpret this result as normal/abnormal. POC V pH (test code = 2746-6) 7.28-7.42 POC V PCO2 (test code = 1-4) See_Comment [Automated messa ge] The system which generated this result transmitted reference range: 38 - 52 mmHg. The reference range was not used to interpret this result as normal/abnormal. POC V Oxyhgb (test code = 1491428359) 53.2 % 95-100 L POC V O2 Sat (vanna) (test code = 5435746608) 54 % 40.0-70.0 POC V O2 Sat (calc) (test code = 2711-0) 63 % 40-70 POC V HCO3 (test code = 87019-8) 27 mmol/L 22-26 H POC V Carboxy (test code = 2933055218) 0.8 % Non-Smoker: 0.0-2.0 Smoker: 0.0-9.0 Reference RangeNon-Smoker 0.0-2.0 ? ?Smoker 0.0-9.0 POC V BE (test code = 1927-3) 2 mmol/L -2-2 POC V Methgb (test code = 2617-9) 0.7 % 0.0-1.4 POC V Hgb Tot (test code = 57692-8) 9.1 g/dL 11.2-15.7 L POC V Hct (calc) (test code = 24243-8) 27 % 34.1-44.9 L POC V Na (test code = 84950-6) See_Comment L [Automated messa ge] The system which generated this result transmitted reference range: 135 - 145 mEq/L. The reference range was not used to interpret this result as normal/abnormal. POC V K (test code = 48311-0) See_Comment [Automated messa ge] The system which generated this result transmitted reference range: 3.5 - 5.1 mEq/L. The reference range was not used to interpret this result as normal/abnormal. POC V Cl (test code = 96989-4) See_Comment [Automated messa ge] The system which generated this result transmitted reference range: 95 - 109 mEq/L. The reference range was not used to interpret this result as normal/abnormal. POC V Glu (test code = 77641-0) 232 mg/dL 70-99 H POC V LA (test code = 2519-7) See_Comment [Automated messa ge] The system which generated this result transmitted reference range: 0.5 - 2.2 mMol/L. The reference range was not used to interpret this result as normal/abnormal. POC V Ca Ion (test code = 61718-7) See_Comment [Automated messa ge] The system which generated this result transmitted reference range: 1.05 - 1.25 mMol/L. The reference range was not used to interpret this result as normal/abnormal. POC V Ca Ion (7.4) (test code = 6808250735) See_Comment [Automated messa ge] The system which generated this result transmitted reference range: 1.05 - 1.25 mMol/L. The reference range was not used to interpret this result as normal/abnormal. POC V Mode #1 (test code = 0755658874) NC 4L POC Performing Location (test code = 6123911403) HVI BG CLI Lab Interpretation (test code = 54607-1) Abnormal [facility] Teutbhd4906-73-24 20:06:53* Test Item Value Reference Range Interpretation Comme [facility] POC Glu (test code = 2505373210) 188 mg/dL 70-99 H POC Glu Comment 1 (test code = 0784781492) Notified RN/MD POC Performing Location (micha t code = 9109873677) HV4 CCU Lab Interpretation (test cod e = 01026-9) Abnormal [facility] Dvbizkb4005-00-01 17:01:23* Test Item Value Reference Range Interpretation Comme nts POC Glu (test code = 3227598945) 161 mg/dL 70-99 H POC Glu Comment 1 (test code = 9724624370) Notified RN/MD POC Performing Location (micha t code = 3775046655) HV4 CCU Lab Interpretation (test cod e = 47462-5) Abnormal [facility] Hvberjg7380-14-57 11:12:42* Test Item Value Reference Range Interpretation Comme nts POC Glu (test code = 8935483132) 194 mg/dL 70-99 H POC Glu Comment 1 (test code = 4016090709) Notified RN/MD POC Performing Location (micha t code = 6048677117) HV4 CCU Lab Interpretation (test cod e = 14630-4) Abnormal [facility] Kgcoeyi5744-81-79 05:48:48* Test Item Value Reference Range Interpretation Comme nts POC Glu (test code = 1286477405) 168 mg/dL 70-99 H POC Performing Location (micha t code = 8979584767) HV4 CCU Lab Interpretation (test cod e = 03054-9) Abnormal [facility] Ijniboh3560-90-17 19:42:16* Test Item Value Reference Range Interpretation Comme nts POC Glu (test code = 1167147749) 325 mg/dL 70-99 H POC Performing Location (micha t code = 9240324315) HV4 CCU Lab Interpretation (test cod e = 06682-1) Abnormal [facility] Rweplep1397-74-73 16:21:49* Test Item Value Reference Range Interpretation Comme nts POC Glu (test code = 4754573357) 330 mg/dL 70-99 H POC Glu Comment 1 (test code = 6007433698) Notified RN/MD POC Performing Location (micha t code = 7219698233) HV4 CCU Lab Interpretation (test cod e = 85936-3) Abnormal [facility] Bwaefzw3341-68-67 11:16:00* Test Item Value Reference Range Interpretation Comme nts POC Glu (test code = 4520397266) 267 mg/dL 70-99 H POC Glu Comment 1 (test code = 5635624940) Notified RN/MD POC Performing Location (micha t code = 2832386195) HV4 CCU Lab Interpretation (test cod e = 60675-0) Abnormal [facility] 12 pnrm0023-08-56 10:37:51* Test Item Value Reference Range Interpretation Comme nts Ventricular Rate (test code = 1389265473) BPM Atrial Rate (test code = 3327396902) BPM QRS Duration (test code = 3402292585) 94 ms QT/QTc (test code = 8672636533) 360 ms QTc Calculation (test code = 5344133814) 469 ms R-[place] (test code = 6036603382) degrees T-[place] (test code = 2627729640) degrees CINDY (test code = CINDY) PXN (test code = PXN) [facility] Srasamb1930-92-10 07:25:51* Test Item Value Reference Range Interpretation Comme nts POC Glu (test code = 3636408060) 218 mg/dL 70-99 H POC Glu Comment 1 (test code = 6704036312) Notified RN/MD POC Performing Location (micha t code = 5753131253) HV4 CIMU Lab Interpretation (test cod e = 45266-9) Abnormal [facility] Guwotax8441-35-28 07:15:21* Test Item Value Reference Range Interpretation Comme nts POC Glu (test code = 7753815425) 251 mg/dL 70-99 H POC Glu Comment 1 (test code = 1610412788) Notified RN/MD POC Glu Comment 2 (test code = 6833211687) Cleaned Meter POC Performing Location (micha t code = 0072530076) HV4 CCU Lab Interpretation (test cod e = 18540-6) Abnormal [facility] Lruwesd4044-91-32 16:21:02* Test Item Value Reference Range Interpretation Comme nts POC Glu (test code = 5588800872) 159 mg/dL 70-99 H POC Performing Location (micha t code = 6753656345) HV4 CIMU Lab Interpretation (test cod e = 64004-2) Abnormal [facility] Arterial Blood Gas and Comprehensive Wattd4916-67-61 11:27:22* Test Item Value Reference Range Interpretation Comme nts POC A Temp (test code = 5265616201) DegC POC A Source (test code = 1892775863) ART POC A pH (test code = 2744-1) 7.35-7.45 POC A PCO2 (test code = 2019-8) See_Comment L [Automated messa ge] The system which generated this result transmitted reference range: 35 - 45 mmHg. The reference range was not used to interpret this result as normal/abnormal. POC A PO2 (test code = 2703-7) See_Comment [Automated messa ge] The system which generated this result transmitted reference range: 80 - 100 mmHg. The reference range was not used to interpret this result as normal/abnormal. POC A HCO3 (test code = 1960-4) See_Comment [Automated messa ge] The system which generated this result transmitted reference range: 22 - 26 mMol/L. The reference range was not used to interpret this result as normal/abnormal. POC A BE (test code = 1925-7) See_Comment [Automated messa ge] The system which generated this result transmitted reference range: -2 - 2 mMol/L. The reference range was not used to interpret this result as normal/abnormal. POC A O2 Sat (calc) (test code = 2708-6) 98.5 % 95-100 POC A O2 Sat (vanna) (test code = 8637590939) 99 % 95.0-100.0 POC A Oxyhgb (test code = 4234495821) 98.2 % 95-100 POC A Carboxy (test code = 2073014533) 0.5 % Non-Smoker: 0.0-2.0 Smoker: 0.0-9.0 Reference RangeNon-Smoker 0.0-2.0 ? ?Smoker 0.0-9.0 POC A Methgb (test code = 2615-3) 0.0-1.4 POC A Hgb Tot (test code = 24544-5) 10.2 g/dL 11.2-15.7 L POC A Hct (calc) (test code = 08107-8) 31 % 34.1-44.9 L POC A Na (test code = 15161-9) See_Comment L [Automated messa ge] The system which generated this result transmitted reference range: 135 - 145 mEq/L. The reference range was not used to interpret this result as normal/abnormal. POC A K (test code = 6147615) See_Comment [Automated messa ge] The system which generated this result transmitted reference range: 3.5 - 5.1 mEq/L. The reference range was not used to interpret this result as normal/abnormal. POC Chloride (test code = 5018969) See_Comment [Automated messa ge] The system which generated this result transmitted reference range: 95 - 109 mEq/L. The reference range was not used to interpret this result as normal/abnormal. POC A Glu (test code = 2339-0) 184 mg/dL 70-99 H POC A LA (test code = 224) See_Comment [Automated messa ge] The system which generated this result transmitted reference range: 0.5 - 2.2 mMol/L. The reference range was not used to interpret this result as normal/abnormal. POC A Ca Ion (test code = 53795-5) See_Comment [Automated messa ge] The system which generated this result transmitted reference range: 1.05 - 1.25 mMol/L. The reference range was not used to interpret this result as normal/abnormal. POC A Ca Ion (7.4) (test code = 0244612045) 1.24 mmol/L 1.05-1.25 POC Performing Location (test code = 1269803463) HVI BG CLI Lab Interpretation (test code = 12882-5) Abnormal [facility] Arterial Blood Gas and Comprehensive Ugtoj3837-40-58 03:27:59* Test Item Value Reference Range Interpretation Comme nts POC A Temp (test code = 7594851531) DegC POC A Source (test code = 3532037889) ART POC A pH (test code = 2744-1) 7.35-7.45 POC A PCO2 (test code = 2019-8) See_Comment L [Automated messa ge] The system which generated this result transmitted reference range: 35 - 45 mmHg. The reference range was not used to interpret this result as normal/abnormal. POC A PO2 (test code = 2703-7) See_Comment [Automated messa ge] The system which generated this result transmitted reference range: 80 - 100 mmHg. The reference range was not used to interpret this result as normal/abnormal. POC A HCO3 (test code = 1960-4) See_Comment [Automated messa ge] The system which generated this result transmitted reference range: 22 - 26 mMol/L. The reference range was not used to interpret this result as normal/abnormal. POC A BE (test code = 1925-7) See_Comment [Automated messa ge] The system which generated this result transmitted reference range: -2 - 2 mMol/L. The reference range was not used to interpret this result as normal/abnormal. POC A O2 Sat (calc) (test code = 2708-6) 97.2 % 95-100 POC A O2 Sat (vanna) (test code = 7163885672) 98 % 95.0-100.0 POC A Oxyhgb (test code = 4164225656) 96.5 % 95-100 POC A Carboxy (test code = 8558444778) 0.8 % Non-Smoker: 0.0-2.0 Smoker: 0.0-9.0 Reference RangeNon-Smoker 0.0-2.0 ? ?Smoker 0.0-9.0 POC A Methgb (test code = 2615-3) 0.7 % 0.0-1.4 POC A Hgb Tot (test code = 79964-7) 10.1 g/dL 11.2-15.7 L POC A Hct (calc) (test code = 13315-5) 30 % 34.1-44.9 L POC A Na (test code = 37668-0) See_Comment L [Automated messa ge] The system which generated this result transmitted reference range: 135 - 145 mEq/L. The reference range was not used to interpret this result as normal/abnormal. POC A K (test code = 4282211) See_Comment [Automated messa ge] The system which generated this result transmitted reference range: 3.5 - 5.1 mEq/L. The reference range was not used to interpret this result as normal/abnormal. POC Chloride (test code = 0457193) See_Comment [Automated messa ge] The system which generated this result transmitted reference range: 95 - 109 mEq/L. The reference range was not used to interpret this result as normal/abnormal. POC A Glu (test code = 2339-0) 196 mg/dL 70-99 H POC A LA (test code = 224) See_Comment [Automated messa ge] The system which generated this result transmitted reference range: 0.5 - 2.2 mMol/L. The reference range was not used to interpret this result as normal/abnormal. POC A Ca Ion (test code = 60353-0) See_Comment [Automated messa ge] The system which generated this result transmitted reference range: 1.05 - 1.25 mMol/L. The reference range was not used to interpret this result as normal/abnormal. POC A Ca Ion (7.4) (test code = 3616907806) 1.22 mmol/L 1.05-1.25 POC A O2 Device #1 (test code = 9644063491) Cannula POC Performing Location (test code = 8428406551) HVI BG CLI Lab Interpretation (test code = 82114-3) Abnormal [facility] 12 hxwj2439-66-87 21:09:15* Test Item Value Reference Range Interpretation Comme nts Ventricular Rate (test code = 2582032098) BPM QRS Duration (test code = 8275363771) 80 ms QT/QTc (test code = 7573201929) 422 ms QTc Calculation (test code = 0049711293) 458 ms R-[place] (test code = 0215102174) degrees T-[place] (test code = 2232297463) degrees CINDY (test code = CINDY) PXN (test code = PXN) [facility] Arterial Blood Gas and Comprehensive Zxfhs0737-51-74 19:43:07* Test Item Value Reference Range Interpretation Comme nts POC A Temp (test code = 6287033622) DegC POC A Source (test code = 5346458679) ART POC A pH (test code = 2744-1) 7.35-7.45 POC A PCO2 (test code = 2018-8) See_Comment L [Automated messa ge] The system which generated this result transmitted reference range: 35 - 45 mmHg. The reference range was not used to interpret this result as normal/abnormal. POC A PO2 (test code = 2703-7) See_Comment [Automated messa ge] The system which generated this result transmitted reference range: 80 - 100 mmHg. The reference range was not used to interpret this result as normal/abnormal. POC A HCO3 (test code = 1960-4) See_Comment L [Automated messa ge] The system which generated this result transmitted reference range: 22 - 26 mMol/L. The reference range was not used to interpret this result as normal/abnormal. POC A BE (test code = 1925-7) See_Comment L [Automated messa ge] The system which generated this result transmitted reference range: -2 - 2 mMol/L. The reference range was not used to interpret this result as normal/abnormal. POC A O2 Sat (calc) (test code = 2708-6) 99.2 % 95-100 POC A O2 Sat (vanna) (test code = 9062367102) 98.8 % 95.0-100.0 POC A Oxyhgb (test code = 6773767832) 97.2 % 95-100 POC A Carboxy (test code = 4577144120) 0.5 % Non-Smoker: 0.0-2.0 Smoker: 0.0-9.0 Reference RangeNon-Smoker 0.0-2.0 ? ?Smoker 0.0-9.0 POC A Methgb (test code = 2615-3) 1.1 % 0.0-1.4 POC A Hgb Tot (test code = 08821-9) 9.9 g/dL 11.2-15.7 L POC A Hct (calc) (test code = 67728-0) 30 % 34.1-44.9 L POC A Na (test code = 01858-3) See_Comment L [Automated messa ge] The system which generated this result transmitted reference range: 135 - 145 mEq/L. The reference range was not used to interpret this result as normal/abnormal. POC A K (test code = 3752544) See_Comment [Automated messa ge] The system which generated this result transmitted reference range: 3.5 - 5.1 mEq/L. The reference range was not used to interpret this result as normal/abnormal. POC Chloride (test code = 2657236) See_Comment [Automated messa ge] The system which generated this result transmitted reference range: 95 - 109 mEq/L. The reference range was not used to interpret this result as normal/abnormal. POC A Glu (test code = 2339-0) 123 mg/dL 70-99 H POC A LA (test code = 224) See_Comment [Automated messa ge] The system which generated this result transmitted reference range: 0.5 - 2.2 mMol/L. The reference range was not used to interpret this result as normal/abnormal. POC A Ca Ion (test code = 35283-4) See_Comment [Automated messa ge] The system which generated this result transmitted reference range: 1.05 - 1.25 mMol/L. The reference range was not used to interpret this result as normal/abnormal. POC A Ca Ion (7.4) (test code = 6765060859) 1.22 mmol/L 1.05-1.25 POC A O2 Device #1 (test code = 9199943282) Cannula POC Performing Location (test code = 7809476894) [facility] CLI Lab Interpretation (test code = 45209-7) Abnormal [facility] Arterial Blood Gas and Comprehensive Ddbeh5331-74-61 18:21:33* Test Item Value Reference Range Interpretation Comme nts POC A Temp (test code = 1599629672) DegC POC A Source (test code = 9540790158) ART POC A pH (test code = 2744-1) 7.35-7.45 POC A PCO2 (test code = 2019-) See_Comment L [Automated messa ge] The system which generated this result transmitted reference range: 35 - 45 mmHg. The reference range was not used to interpret this result as normal/abnormal. POC A PO2 (test code = 2703-7) See_Comment L [Automated messa ge] The system which generated this result transmitted reference range: 80 - 100 mmHg. The reference range was not used to interpret this result as normal/abnormal. POC A HCO3 (test code = 1960-4) See_Comment L [Automated messa ge] The system which generated this result transmitted reference range: 22 - 26 mMol/L. The reference range was not used to interpret this result as normal/abnormal. POC A BE (test code = 1925-7) See_Comment L [Automated messa ge] The system which generated this result transmitted reference range: -2 - 2 mMol/L. The reference range was not used to interpret this result as normal/abnormal. POC A O2 Sat (calc) (test code = 2708-6) 94.7 % 95-100 L POC A O2 Sat (vanna) (test code = 6675450484) 96 % 95.0-100.0 POC A Oxyhgb (test code = 3089543557) 94.1 % 95-100 L POC A Carboxy (test code = 4577279226) 1.2 % Non-Smoker: 0.0-2.0 Smoker: 0.0-9.0 Reference RangeNon-Smoker 0.0-2.0 ? ?Smoker 0.0-9.0 POC A Methgb (test code = 2615-3) 0.8 % 0.0-1.4 POC A Hgb Tot (test code = 94754-8) 9.5 g/dL 11.2-15.7 L POC A Hct (calc) (test code = 24366-6) 29 % 34.1-44.9 L POC A Na (test code = 46395-0) See_Comment L [Automated messa ge] The system which generated this result transmitted reference range: 135 - 145 mEq/L. The reference range was not used to interpret this result as normal/abnormal. POC A K (test code = 4936529) See_Comment [Automated messa ge] The system which generated this result transmitted reference range: 3.5 - 5.1 mEq/L. The reference range was not used to interpret this result as normal/abnormal. POC Chloride (test code = 1136287) See_Comment [Automated messa ge] The system which generated this result transmitted reference range: 95 - 109 mEq/L. The reference range was not used to interpret this result as normal/abnormal. POC A Glu (test code = 2339-0) 121 mg/dL 70-99 H POC A LA (test code = 224) See_Comment [Automated messa ge] The system which generated this result transmitted reference range: 0.5 - 2.2 mMol/L. The reference range was not used to interpret this result as normal/abnormal. POC A Ca Ion (test code = 23894-4) See_Comment [Automated messa ge] The system which generated this result transmitted reference range: 1.05 - 1.25 mMol/L. The reference range was not used to interpret this result as normal/abnormal. POC A Ca Ion (7.4) (test code = 3023546038) 1.2 mmol/L 1.05-1.25 POC A O2 Device #1 (test code = 5703149678) 5L NC POC Performing Location (test code = 9980562923) [facility] CLI Lab Interpretation (test code = 33300-9) Abnormal [facility] Xdawdvo8676-51-57 17:25:43* Test Item Value Reference Range Interpretation Comme nts POC Glu (test code = 0434304199) 89 mg/dL 70-99 POC Performing Location (micha t code = 9559342015) HV4 CCU [facility] Arterial Blood Gas and Comprehensive [id number] 11:51:53* Test Item Value Reference Range Interpretation Comme nts POC A Temp (test code = 8330797933) DegC POC A Source (test code = 1346247215) ART POC A pH (test code = 2744-1) 7.35-7.45 H POC A PCO2 (test code = 2019-) See_Comment LL [Automated messa ge] The system which generated this result transmitted reference range: 35 - 45 mmHg. The reference range was not used to interpret this result as normal/abnormal. POC A PO2 (test code = 2703-7) See_Comment [Automated messa ge] The system which generated this result transmitted reference range: 80 - 100 mmHg. The reference range was not used to interpret this result as normal/abnormal. POC A HCO3 (test code = 1960-4) See_Comment L [Automated messa ge] The system which generated this result transmitted reference range: 22 - 26 mMol/L. The reference range was not used to interpret this result as normal/abnormal. POC A BE (test code = 1925-7) See_Comment L [Automated messa ge] The system which generated this result transmitted reference range: -2 - 2 mMol/L. The reference range was not used to interpret this result as normal/abnormal. POC A O2 Sat (calc) (test code = 2708-6) 99.2 % 95-100 POC A O2 Sat (vanna) (test code = 4169663786) 98.3 % 95.0-100.0 POC A Oxyhgb (test code = 1557613474) 97.2 % 95-100 POC A Carboxy (test code = 9135597835) Non-Smoker: 0.0-2.0 Smoker: 0.0-9.0 % Reference RangeNon-Smoker 0.0-2.0 ? ?Smoker 0.0-9.0 POC A Methgb (test code = 2615-3) 1 % 0.0-1.4 POC A Hgb Tot (test code = 69161-3) 9.1 g/dL 11.2-15.7 L POC A Hct (calc) (test code = 16429-3) 27 % 34.1-44.9 L POC A Na (test code = 79236-1) See_Comment L [Automated messa ge] The system which generated this result transmitted reference range: 135 - 145 mEq/L. The reference range was not used to interpret this result as normal/abnormal. POC A K (test code = 9486933) See_Comment [Automated messa ge] The system which generated this result transmitted reference range: 3.5 - 5.1 mEq/L. The reference range was not used to interpret this result as normal/abnormal. POC Chloride (test code = 3256317) See_Comment [Automated messa ge] The system which generated this result transmitted reference range: 95 - 109 mEq/L. The reference range was not used to interpret this result as normal/abnormal. POC A Glu (test code = 2339-0) 102 mg/dL 70-99 H POC A LA (test code = 224) See_Comment [Automated messa ge] The system which generated this result transmitted reference range: 0.5 - 2.2 mMol/L. The reference range was not used to interpret this result as normal/abnormal. POC A Ca Ion (test code = 13875-8) See_Comment [Automated messa ge] The system which generated this result transmitted reference range: 1.05 - 1.25 mMol/L. The reference range was not used to interpret this result as normal/abnormal. POC A Ca Ion (7.4) (test code = 0848900000) 1.24 mmol/L 1.05-1.25 POC A O2 Device #1 (test code = 4412191887) 5L NC POC Performing Location (test code = 0584975046) [facility] CLI Lab Interpretation (test code = 46051-2) Abnormal [facility] Mhlniab5055-26-55 11:43:09* Test Item Value Reference Range Interpretation Comme [facility] POC Glu (test code = 2553694293) 99 mg/dL 70-99 POC Performing Location (micha t code = 3330395524) HV4 CIMU [facility] Alfcqso2882-18-82 09:00:23* Test Item Value Reference Range Interpretation Comme nts POC Glu (test code = 2130060354) 100 mg/dL 70-99 H POC Performing Location (micha t code = 3922567108) 4 CCU Lab Interpretation (test cod e = 03914-5) Abnormal [facility] Arterial Blood Gas and Comprehensive Dhmez0533-94-77 03:45:54* Test Item Value Reference Range Interpretation Comme nts POC A Temp (test code = 7619154815) DegC POC A Source (test code = 5731978256) ART POC A pH (test code = 2744-1) 7.35-7.45 H POC A PCO2 (test code = 2019-) See_Comment L [Automated messa ge] The system which generated this result transmitted reference range: 35 - 45 mmHg. The reference range was not used to interpret this result as normal/abnormal. POC A PO2 (test code = 2703-7) See_Comment [Automated messa ge] The system which generated this result transmitted reference range: 80 - 100 mmHg. The reference range was not used to interpret this result as normal/abnormal. POC A HCO3 (test code = 1960-4) See_Comment [Automated messa ge] The system which generated this result transmitted reference range: 22 - 26 mMol/L. The reference range was not used to interpret this result as normal/abnormal. POC A BE (test code = 1925-7) See_Comment [Automated messa ge] The system which generated this result transmitted reference range: -2 - 2 mMol/L. The reference range was not used to interpret this result as normal/abnormal. POC A O2 Sat (calc) (test code = 2708-6) 96.4 % 95-100 POC A O2 Sat (vanna) (test code = 2928753608) 97.1 % 95.0-100.0 POC A Oxyhgb (test code = 0216558091) 95 % 95-100 POC A Carboxy (test code = 5280805554) 1.5 % Non-Smoker: 0.0-2.0 Smoker: 0.0-9.0 Reference RangeNon-Smoker 0.0-2.0 ? ?Smoker 0.0-9.0 POC A Methgb (test code = 2615-3) 0.8 % 0.0-1.4 POC A Hgb Tot (test code = 25566-0) 13.3 g/dL 11.2-15.7 POC A Hct (calc) (test code = 22389-8) 40 % 34.1-44.9 POC A Na (test code = 94383-0) See_Comment L [Automated messa ge] The system which generated this result transmitted reference range: 135 - 145 mEq/L. The reference range was not used to interpret this result as normal/abnormal. POC A K (test code = 4472855) See_Comment [Automated messa ge] The system which generated this result transmitted reference range: 3.5 - 5.1 mEq/L. The reference range was not used to interpret this result as normal/abnormal. POC Chloride (test code = 2424537) See_Comment [Automated messa ge] The system which generated this result transmitted reference range: 95 - 109 mEq/L. The reference range was not used to interpret this result as normal/abnormal. POC A Glu (test code = 2339-0) 96 mg/dL 70-99 POC A LA (test code = 224) See_Comment [Automated messa ge] The system which generated this result transmitted reference range: 0.5 - 2.2 mMol/L. The reference range was not used to interpret this result as normal/abnormal. POC A Ca Ion (test code = 47304-7) See_Comment [Automated messa ge] The system which generated this result transmitted reference range: 1.05 - 1.25 mMol/L. The reference range was not used to interpret this result as normal/abnormal. POC A Ca Ion (7.4) (test code = 9647585386) 1.26 mmol/L 1.05-1.25 H POC Performing Location (test code = 6752205466) [facility] CLI Lab Interpretation (test code = 40293-0) Abnormal [facility] Yzkjjez5801-68-18 20:27:23* Test Item Value Reference Range Interpretation Comme nts POC Glu (test code = 8635079603) 111 mg/dL 70-99 H POC Glu Comment 1 (test code = 9605736795) Notified RN/MD POC Performing Location (micha t code = 6198219359) HV4 CCU Lab Interpretation (test cod e = 08979-5) Abnormal [facility] Arterial Blood Gas and Comprehensive Piqwp9678-70-01 19:23:58* Test Item Value Reference Range Interpretation Comme nts POC A Temp (test code = 3384616142) DegC POC A Source (test code = 9279671047) ART POC A pH (test code = 2744-1) 7.35-7.45 H POC A PCO2 (test code = 2018-12) See_Comment LL [Automated messa ge] The system which generated this result transmitted reference range: 35 - 45 mmHg. The reference range was not used to interpret this result as normal/abnormal. POC A PO2 (test code = 2703-7) See_Comment L [Automated messa ge] The system which generated this result transmitted reference range: 80 - 100 mmHg. The reference range was not used to interpret this result as normal/abnormal. POC A HCO3 (test code = 1960-4) See_Comment [Automated messa ge] The system which generated this result transmitted reference range: 22 - 26 mMol/L. The reference range was not used to interpret this result as normal/abnormal. POC A BE (test code = 1925-7) See_Comment [Automated messa ge] The system which generated this result transmitted reference range: -2 - 2 mMol/L. The reference range was not used to interpret this result as normal/abnormal. POC A O2 Sat (calc) (test code = 2708-6) 96.1 % 95-100 POC A O2 Sat (vanna) (test code = 3877630905) 96.8 % 95.0-100.0 POC A Oxyhgb (test code = 3953618624) 95 % 95-100 POC A Carboxy (test code = 4555875727) 1.3 % Non-Smoker: 0.0-2.0 Smoker: 0.0-9.0 Reference RangeNon-Smoker 0.0-2.0 ? ?Smoker 0.0-9.0 POC A Methgb (test code = 2615-3) 0.0-1.4 POC A Hgb Tot (test code = 54404-3) 8.8 g/dL 11.2-15.7 L POC A Hct (calc) (test code = 61551-7) 26 % 34.1-44.9 L POC A Na (test code = 56698-8) See_Comment L [Automated messa ge] The system which generated this result transmitted reference range: 135 - 145 mEq/L. The reference range was not used to interpret this result as normal/abnormal. POC A K (test code = 5039325) See_Comment [Automated messa [employer]] The system which generated this result transmitted reference range: 3.5 - 5.1 mEq/L. The reference range was not used to interpret this result as normal/abnormal. POC Chloride (test code = 4287108) See_Comment [Automated [employer]] The system which generated this result transmitted reference range: 95 - 109 mEq/L. The reference range was not used to interpret this result as normal/abnormal. POC A Glu (test code = 2339-0) 119 mg/dL 70-99 H POC A LA (test code = 224) See_Comment [Automated [employer]] The system which generated this result transmitted reference range: 0.5 - 2.2 mMol/L. The reference range was not used to interpret this result as normal/abnormal. POC A Ca Ion (test code = 69866-4) See_Comment [Automated [employer]] The system which generated this result transmitted reference range: 1.05 - 1.25 mMol/L. The reference range was not used to interpret this result as normal/abnormal. POC A Ca Ion (7.4) (test code = 6081211810) 1.28 mmol/L 1.05-1.25 H POC Performing Location (test code = 1144754583) [facility] CLI Lab Interpretation (test code = 38536-2) [facility] kmedzojx8868-52-19 18:33:01* Test Item Value Reference Range Interpretation Comme nts RVOT Vmean (test code = 4046888699) 0.63 m/s LA Vol I (A4C) BSA (test code = 5538618186) 30.8 ml/m2 LA Vol I BSA (test code = 2120858450) 42.7 ml/m2 LVOT Vmax/AV Vmax (test code = 8800107698) 0.54 {ratio} Ao Root diam diastole (test code = 2493483973) 27 mm LVOT Vmean (test code = 8449254497) 0.48 m/s LV SV (A4C) (test code = 0895135270) 51.9 ml LV SI (A2C) (test code = 2134364441) 36.6 ml LV SV (BP) (test code = 5877622862) 46.9 ml LV SI (A4C) (test code = 0315103284) 26.9 ml/m2 LV SI (A2C) (test code = 3878515746) 19 ml/m2 LV SI (BP) (test code = 0582343706) 24.3 ml/m2 LVLs (A4C) (test code = 7511715350) 62.4 mm LVLs (A2C) (test code = 6568676270) 65.4 mm LVLd (A4C) (test code = 1373290030) 77.4 mm LVLd (A2C) (test code = 8906673824) 69.9 mm PV mn kayla (test code = 2725454497) 0.67 m/s LV ESV A2C (test code = 7252114474) 20 mL LV EDV A4C (test code = 9826708906) 71.1 mL LA area A4C (test code = 3725437958) 21.1 cm2 LA area A2C (test code = 2035226728) 23.9 cm2 LV ESV A4C (test code = 9697076144) 19.2 mL LV EDV A2C (test code = 2268260838) 56.5 mL MV max kayla (test code = 4163324651) 2.19 cm/s TR pk grad (test code = 6088002289) mmHg RV FAC 2D (test code = 5165717329) LA ESV A2C (test code = 7380122875) 82.976824096860149 mL LA ESV A4C (test code = 0355356452) 82.685941554177974 mL RV BONIFACIO (test code = 9149915705) 5.79 cm2 MV mn kayla (test code = 5788676082) 1.11 m/s LV est EF (test code = 4485728517) 61 % LA vol index (test code = 6978766031) 37 mL/m2 LV EDV BP (test code = 4918981340) 66 mL LV ESV BP (test code = 3164836127) 19.1 mL MV A pk kayla (test code = 9718850363) 0.28 m/s MV PHT (test code = 9547311532) 75 ms MV VTI (test code = 1236008418) 40.6 cm MV E pk kayla (test code = 7474091579) 1.78 m/s PV mn grad (test code = 0819387708) mmHg MV pk grad (test code = 3463494386) mmHg AV pk grad (test code = 0217215549) mmHg LV stroke vol (test code = 6136020823) 42 ml RVOT VTI (test code = 7746558778) 14.9 cm RVOT pk kayla (test code = 6356312416) 0.82 m/s AV VTI (test code = 7025728381) 19.7 cm AV pk kayla (test code = 9320891506) 1.47 m/s LVOT VTI (test code = 9323825342) 13.5 cm LVOT pk kayla (test code = 8076363415) 0.8 m/s LVOT area (test code = 0086120799) 3.14 cm2 LVOT diam (test code = 9869532168) 20 mm MV DT (test code = 2987609081) 183 ms MV e' lateral kayla (test code = 4971226770) 9.73 cm/s MV E/A ratio (test code = 2925347960) PV pk grad (test code = 0089280095) mmHg MV area cont eq (test code = 8914711063) 1.04 cm2 MV area PHT (test code = 6193521877) 2.93 cm2 MV mn grad (test code = 2006633657) mmHg LVOT pk grad (test code = 7958845543) mmHg AV mn grad (test code = 7312271643) mmHg RVOT mn grad (test code = 7496052739) mmHg RVOT pk grad (test code = 5977759491) mmHg MV E/e' septal (test code = 6196989851) RA vol (test code = 8027296470) 15.4 mL/m2 TR pk kayla (test code = 3317093101) 2.86 m/s AV area pk kayla (test code = 1457728683) 1.7 cm2 AV area cont VTI (test code = 6357114552) 2.15 cm2 LVOT mn grad (test code = 5844919755) mmHg RV CRISTAL (test code = 7218567391) 10.9 cm2 RV-real mid diam (test code = 5262856865) 19 cm RV-real basal diam (test code = 7715905822) 30 cm RV-real longitudinal diam (test code = 9305668344) 62 cm LV A4C EF (test code = 7891765677) 73 % LV A2C EF (test code = 8011979800) 65 % AV mn kayla (test code = 5558877515) 0.88 m/s LVPWd (test code = 4467404253) 11 mm LA size (test code = 7039309527) 37 mm Ascending aorta (test code = 4694678429) 29 mm LA vol BP (test code = 5125038347) 71.4 ml LV biplane EF (test code = 8157380048) 71.1 % Fractional Shortening 2D (test code = 3764006052) 32 % LVIDs (test code = 3316376314) 25 mm IVSd (test code = 9012446450) 10 mm LVIDd (test code = 5077471080) 37 mm PV pk kayla (test code = 1569021241) 0.98 m/s PV VTI (test code = 7637064) 17.2 cm MV E/e' lateral (test code = 4921898) MV e' septal kayla (test code = 6203200) 10.6 cm/s LV ESV 2D (test code = 9649149) 22.3 mL LV EDV 2D (test code = 2813732) 56.6 mL IVSd 2D (test code = 1532154) 10.719885165943445 cm BSA (test code = 6778111208) 1.98 m2 LV GLS (test code = 3452890826) -18.3 % RVSP (test code = 0648777) mmHg Est RA pressure (test code = 0985401526) mmHg Radiology Study observation (narrative) (test code = 91930-8) CINDY (test code = CINDY) [facility] Venous Blood Gas and Comprehensive Pbkdv4388-02-79 18:15:02* Test Item Value Reference Range Interpretation Comme nts POC V Temp (test code = 7135859723) DegC POC V Source (test code = 6048141860) JOHANNA POC V PO2 (test code = 2705-2) See_Comment [Automated [employer] ge] The system which generated this result transmitted reference range: 20 - 49 mmHg. The reference range was not used to interpret this result as normal/abnormal. POC V pH (test code = 2746-6) 7.28-7.42 POC V PCO2 (test code = 2020-) See_Comment [Automated messa ge] The system which generated this result transmitted reference range: 38 - 52 mmHg. The reference range was not used to interpret this result as normal/abnormal. POC V Oxyhgb (test code = 2073189427) 44.1 % 95-100 L POC V O2 Sat (vanna) (test code = 0729393718) 44.8 % 40.0-70.0 POC V O2 Sat (calc) (test code = 2711-0) 60 % 40-70 POC V HCO3 (test code = 59235-5) 25 mmol/L 22-26 POC V Carboxy (test code = 6001218685) 0.9 % Non-Smoker: 0.0-2.0 Smoker: 0.0-9.0 Reference RangeNon-Smoker 0.0-2.0 ? ?Smoker 0.0-9.0 POC V BE (test code = 1927-3) 1 mmol/L -2-2 POC V Methgb (test code = 2617-9) 0.8 % 0.0-1.4 POC V Hgb Tot (test code = 08699-7) 10 g/dL 11.2-15.7 L POC V Hct (calc) (test code = 94070-5) 30 % 34.1-44.9 L POC V Na (test code = 90973-0) See_Comment L [Automated messa ge] The system which generated this result transmitted reference range: 135 - 145 mEq/L. The reference range was not used to interpret this result as normal/abnormal. POC V K (test code = 10434-5) See_Comment [Automated messa ge] The system which generated this result transmitted reference range: 3.5 - 5.1 mEq/L. The reference range was not used to interpret this result as normal/abnormal. POC V Cl (test code = 17425-9) See_Comment [Automated messa ge] The system which generated this result transmitted reference range: 95 - 109 mEq/L. The reference range was not used to interpret this result as normal/abnormal. POC V Glu (test code = 02232-1) 117 mg/dL 70-99 H POC V LA (test code = 2519-7) See_Comment [Automated messa ge] The system which generated this result transmitted reference range: 0.5 - 2.2 mMol/L. The reference range was not used to interpret this result as normal/abnormal. POC V Ca Ion (test code = 65220-9) See_Comment [Automated messa ge] The system which generated this result transmitted reference range: 1.05 - 1.25 mMol/L. The reference range was not used to interpret this result as normal/abnormal. POC V Ca Ion (7.4) (test code = 1380734504) See_Comment H [Automated messa ge] The system which generated this result transmitted reference range: 1.05 - 1.25 mMol/L. The reference range was not used to interpret this result as normal/abnormal. POC Performing Location (test code = 4981250327) [facility]VI BG CLI Lab Interpretation (test code = 46016-9) Abnormal [facility] Mxzcqhr7381-26-32 18:09:20* Test Item Value Reference Range Interpretation Comme nts POC Glu (test code = 4908310965) 116 mg/dL 70-99 H POC Performing Location (micha t code = 3191392845) 4 CCU Lab Interpretation (test cod e = 27536-5) Abnormal [facility] Pscpzan6405-95-66 16:55:43* Test Item Value Reference Range Interpretation Comme nts POC Glu (test code = 4994305367) 119 mg/dL 70-99 H POC Performing Location (micha t code = 2671893561) 4 CIMU Lab Interpretation (test cod e = 40745-3) Abnormal [place] [address] pkfx0836-50-45 15:14:06* Test Item Value Reference Range Interpretation Comme nts Ventricular Rate (test code = 5021275486) BPM Atrial Rate (test code = 6777081450) BPM QRS Duration (test code = 2777288582) 82 ms QT/QTc (test code = 2385835273) 394 ms QTc Calculation (test code = 5391601530) 465 ms R-[place] (test code = 0153575274) degrees T-[place] (test code = 7129413611) degrees CINDY (test code = CINDY) PXN (test code = PXN) [place] [address] abcg0197-45-74 15:12:46* Test Item Value Reference Range Interpretation Comme nts Ventricular Rate (test code = 7966770090) BPM QRS Duration (test code = 3571374730) 76 ms QT/QTc (test code = 1738099476) 390 ms QTc Calculation (test code = 4221265329) 466 ms R-[place] (test code = 2916817747) degrees T-[place] (test code = 4266178538) degrees CINDY (test code = CINDY) PXN (test code = PXN) [facility] Kppippu3790-46-14 11:20:42* Test Item Value Reference Range Interpretation Comme nts POC Glu (test code = 6957928732) 116 mg/dL 70-99 H POC Performing Location (micha t code = 2489987427) HV4 CCU Lab Interpretation (test cod e = 19427-1) [facility] wpenlud0685-34-82 09:46:23* Test Item Value Reference Range Interpretation Comme nts TR pk grad (test code = 0388963701) mmHg LV est EF (test code = 4711306249) 60 % TR pk kayla (test code = 7330806231) 1.96 m/s LVPWd (test code = 5511259965) 12 mm Fractional Shortening 2D (test code = 6217635941) 31 % LVIDs (test code = 4282314479) 26 mm IVSd (test code = 5743493324) 10 mm LVIDd (test code = 2793558066) 38 mm LV ESV 2D (test code = 2455040) 25.3 mL LV EDV 2D (test code = 9497444) 63.1 mL IVSd 2D (test code = 9015346) 10.734005174619612 cm BSA (test code = 2789169669) 1.98 m2 Radiology Study observation (narrative) (test code = 80376-8) CINDY (test code = CINDY) [facility] Arterial Blood Gas and Comprehensive Nhuxw8261-83-77 09:09:03* Test Item Value Reference Range Interpretation Comme nts POC A Temp (test code = 6473867850) DegC POC A Source (test code = 7066445943) ART POC A pH (test code = 2744-1) 7.35-7.45 H POC A PCO2 (test code = 2019-) See_Comment LL [Automated messa ge] The system which generated this result transmitted reference range: 35 - 45 mmHg. The reference range was not used to interpret this result as normal/abnormal. POC A PO2 (test code = 2703-7) See_Comment [Automated messa ge] The system which generated this result transmitted reference range: 80 - 100 mmHg. The reference range was not used to interpret this result as normal/abnormal. POC A HCO3 (test code = 1960-4) See_Comment [Automated messa ge] The system which generated this result transmitted reference range: 22 - 26 mMol/L. The reference range was not used to interpret this result as normal/abnormal. POC A BE (test code = 1925-7) See_Comment [Automated messa ge] The system which generated this result transmitted reference range: -2 - 2 mMol/L. The reference range was not used to interpret this result as normal/abnormal. POC A O2 Sat (calc) (test code = 2708-6) 96.7 % 95-100 POC A O2 Sat (vanna) (test code = 2894536972) 97.4 % 95.0-100.0 POC A Oxyhgb (test code = 7261238661) 95.3 % 95-100 POC A Carboxy (test code = 6953546919) 1.5 % Non-Smoker: 0.0-2.0 Smoker: 0.0-9.0 Reference RangeNon-Smoker 0.0-2.0 ? ?Smoker 0.0-9.0 POC A Methgb (test code = 2615-3) 0.7 % 0.0-1.4 POC A Hgb Tot (test code = 68161-3) 9.1 g/dL 11.2-15.7 L POC A Hct (calc) (test code = 48564-7) 27 % 34.1-44.9 L POC A Na (test code = 61833-3) See_Comment L [Automated messa ge] The system which generated this result transmitted reference range: 135 - 145 mEq/L. The reference range was not used to interpret this result as normal/abnormal. POC A K (test code = 4464249) See_Comment [Automated messa ge] The system which generated this result transmitted reference range: 3.5 - 5.1 mEq/L. The reference range was not used to interpret this result as normal/abnormal. POC Chloride (test code = 2867099) See_Comment [Automated messa ge] The system which generated this result transmitted reference range: 95 - 109 mEq/L. The reference range was not used to interpret this result as normal/abnormal. POC A Glu (test code = 2339-0) 121 mg/dL 70-99 H POC A LA (test code = 224) See_Comment [Automated messa ge] The system which generated this result transmitted reference range: 0.5 - 2.2 mMol/L. The reference range was not used to interpret this result as normal/abnormal. POC A Ca Ion (test code = 19762-0) See_Comment [Automated messa ge] The system which generated this result transmitted reference range: 1.05 - 1.25 mMol/L. The reference range was not used to interpret this result as normal/abnormal. POC A Ca Ion (7.4) (test code = 4777753868) 1.27 mmol/L 1.05-1.25 H POC Performing Location (test code = 3874881428) [facility] CLI Lab Interpretation (test code = 66899-1) Abnormal [facility] Vgfsrhd1527-23-03 07:24:09* Test Item Value Reference Range Interpretation Comme nts POC Glu (test code = 6385083926) 130 mg/dL 70-99 H POC Performing Location (micha t code = 6359520267) HV4 CCU Lab Interpretation (test cod e = 63454-6) Abnormal [facility] Arterial Blood Gas and Comprehensive Hrceu4950-15-24 04:27:39* Test Item Value Reference Range Interpretation Comme nts POC A Temp (test code = 6366072421) DegC POC A Source (test code = 8369091436) ART POC A pH (test code = 2744-1) 7.35-7.45 H POC A PCO2 (test code = 2019-8) See_Comment LL [Automated messa ge] The system which generated this result transmitted reference range: 35 - 45 mmHg. The reference range was not used to interpret this result as normal/abnormal. POC A PO2 (test code = 2703-7) See_Comment [Automated messa ge] The system which generated this result transmitted reference range: 80 - 100 mmHg. The reference range was not used to interpret this result as normal/abnormal. POC A HCO3 (test code = 1960-4) See_Comment L [Automated messa ge] The system which generated this result transmitted reference range: 22 - 26 mMol/L. The reference range was not used to interpret this result as normal/abnormal. POC A BE (test code = 1925-7) See_Comment [Automated messa ge] The system which generated this result transmitted reference range: -2 - 2 mMol/L. The reference range was not used to interpret this result as normal/abnormal. POC A O2 Sat (calc) (test code = 2708-6) 98.4 % 95-100 POC A O2 Sat (vanna) (test code = 0156399534) 98.9 % 95.0-100.0 POC A Oxyhgb (test code = 0838552233) 96.7 % 95-100 POC A Carboxy (test code = 0159392929) 1.1 % Non-Smoker: 0.0-2.0 Smoker: 0.0-9.0 Reference RangeNon-Smoker 0.0-2.0 ? ?Smoker 0.0-9.0 POC A Methgb (test code = 2615-3) 1.1 % 0.0-1.4 POC A Hgb Tot (test code = 35664-1) 9 g/dL 11.2-15.7 L POC A Hct (calc) (test code = 44685-9) 27 % 34.1-44.9 L POC A Na (test code = 36444-3) See_Comment [Automated messa ge] The system which generated this result transmitted reference range: 135 - 145 mEq/L. The reference range was not used to interpret this result as normal/abnormal. POC A K (test code = 1562413) See_Comment [Automated messa ge] The system which generated this result transmitted reference range: 3.5 - 5.1 mEq/L. The reference range was not used to interpret this result as normal/abnormal. POC Chloride (test code = 1896648) See_Comment [Automated messa ge] The system which generated this result transmitted reference range: 95 - 109 mEq/L. The reference range was not used to interpret this result as normal/abnormal. POC A Glu (test code = 2339-0) 154 mg/dL 70-99 H POC A LA (test code = 224) See_Comment [Automated messa ge] The system which generated this result transmitted reference range: 0.5 - 2.2 mMol/L. The reference range was not used to interpret this result as normal/abnormal. POC A Ca Ion (test code = 39211-8) See_Comment H [Automated messa ge] The system which generated this result transmitted reference range: 1.05 - 1.25 mMol/L. The reference range was not used to interpret this result as normal/abnormal. POC A Ca Ion (7.4) (test code = 7742156393) 1.33 mmol/L 1.05-1.25 H POC Performing Location (test code = 9761140637) [facility] CLI Lab Interpretation (test code = 34950-3) Abnormal [facility] Arterial Blood Gas and Comprehensive Ypqom4748-20-83 01:59:13* Test Item Value Reference Range Interpretation Comme nts POC A Temp (test code = 1461302362) DegC POC A Source (test code = 9182877395) ART POC A pH (test code = 2744-1) 7.35-7.45 POC A PCO2 (test code = 2019-8) See_Comment L [Automated messa ge] The system which generated this result transmitted reference range: 35 - 45 mmHg. The reference range was not used to interpret this result as normal/abnormal. POC A PO2 (test code = 2703-7) See_Comment L [Automated messa ge] The system which generated this result transmitted reference range: 80 - 100 mmHg. The reference range was not used to interpret this result as normal/abnormal. POC A HCO3 (test code = 1960-4) See_Comment L [Automated messa ge] The system which generated this result transmitted reference range: 22 - 26 mMol/L. The reference range was not used to interpret this result as normal/abnormal. POC A BE (test code = 1925-7) See_Comment L [Automated messa ge] The system which generated this result transmitted reference range: -2 - 2 mMol/L. The reference range was not used to interpret this result as normal/abnormal. POC A O2 Sat (calc) (test code = 2708-6) 94.3 % 95-100 L POC A O2 Sat (vanna) (test code = 4202609099) 95.1 % 95.0-100.0 POC A Oxyhgb (test code = 1456597788) 93.5 % 95-100 L POC A Carboxy (test code = 1749951255) 1.2 % Non-Smoker: 0.0-2.0 Smoker: 0.0-9.0 Reference RangeNon-Smoker 0.0-2.0 ? ?Smoker 0.0-9.0 POC A Methgb (test code = 2615-3) 0.0-1.4 POC A Hgb Tot (test code = 45773-4) 9.1 g/dL 11.2-15.7 L POC A Hct (calc) (test code = 18271-9) 27 % 34.1-44.9 L POC A Na (test code = 16779-8) See_Comment L [Automated messa ge] The system which generated this result transmitted reference range: 135 - 145 mEq/L. The reference range was not used to interpret this result as normal/abnormal. POC A K (test code = 4060254) See_Comment [Automated messa ge] The system which generated this result transmitted reference range: 3.5 - 5.1 mEq/L. The reference range was not used to interpret this result as normal/abnormal. POC Chloride (test code = 2954534) See_Comment [Automated messa ge] The system which generated this result transmitted reference range: 95 - 109 mEq/L. The reference range was not used to interpret this result as normal/abnormal. POC A Glu (test code = 2339-0) 161 mg/dL 70-99 H POC A LA (test code = 224) See_Comment H [Automated messa ge] The system which generated this result transmitted reference range: 0.5 - 2.2 mMol/L. The reference range was not used to interpret this result as normal/abnormal. POC A Ca Ion (test code = 75302-9) See_Comment [Automated messa ge] The system which generated this result transmitted reference range: 1.05 - 1.25 mMol/L. The reference range was not used to interpret this result as normal/abnormal. POC A Ca Ion (7.4) (test code = 3329895431) 1.22 mmol/L 1.05-1.25 POC Performing Location (test code = 9082204577) [facility] CLI Lab Interpretation (test code = 32231-9) Abnormal [facility] Venous Blood Gas and Comprehensive Vokee8409-61-79 22:59:32* Test Item Value Reference Range Interpretation Comme nts POC V Temp (test code = 2444448791) DegC POC V Source (test code = 9563031126) JOHANNA POC V PO2 (test code = 2705-2) See_Comment [Automated messa ge] The system which generated this result transmitted reference range: 20 - 49 mmHg. The reference range was not used to interpret this result as normal/abnormal. POC V pH (test code = 2746-6) 7.28-7.42 POC V PCO2 (test code = 2020-) See_Comment [Automated messa ge] The system which generated this result transmitted reference range: 38 - 52 mmHg. The reference range was not used to interpret this result as normal/abnormal. POC V Oxyhgb (test code = 9830161039) 35 % 95-100 L POC V O2 Sat (vanna) (test code = 9244997308) 35.3 % 40.0-70.0 L POC V O2 Sat (calc) (test code = 2711-0) 50 % 40-70 POC V HCO3 (test code = 05100-1) 23 mmol/L 22-26 POC V Carboxy (test code = 0854735450) 0.9 % Non-Smoker: 0.0-2.0 Smoker: 0.0-9.0 Reference RangeNon-Smoker 0.0-2.0 ? ?Smoker 0.0-9.0 POC V BE (test code = 1927-3) -3 mmol/L -2-2 L POC V Methgb (test code = 2617-9) 0.0-1.4 POC V Hgb Tot (test code = 06178-4) 8.7 g/dL 11.2-15.7 L POC V Hct (calc) (test code = 14332-1) 26 % 34.1-44.9 L POC V Na (test code = 97996-0) See_Comment [Automated messa ge] The system which generated this result transmitted reference range: 135 - 145 mEq/L. The reference range was not used to interpret this result as normal/abnormal. POC V K (test code = 93430-9) See_Comment H [Automated messa ge] The system which generated this result transmitted reference range: 3.5 - 5.1 mEq/L. The reference range was not used to interpret this result as normal/abnormal. POC V Cl (test code = 98119-6) See_Comment [Automated messa ge] The system which generated this result transmitted reference range: 95 - 109 mEq/L. The reference range was not used to interpret this result as normal/abnormal. POC V Glu (test code = 12265-5) 158 mg/dL 70-99 H POC V LA (test code = 2519-7) See_Comment H [Automated messa ge] The system which generated this result transmitted reference range: 0.5 - 2.2 mMol/L. The reference range was not used to interpret this result as normal/abnormal. POC V Ca Ion (test code = 28539-1) See_Comment H [Automated messa ge] The system which generated this result transmitted reference range: 1.05 - 1.25 mMol/L. The reference range was not used to interpret this result as normal/abnormal. POC V Ca Ion (7.4) (test code = 4610270608) See_Comment H [Automated messa ge] The system which generated this result transmitted reference range: 1.05 - 1.25 mMol/L. The reference range was not used to interpret this result as normal/abnormal. POC Performing Location (test code = 1403566514) [facility] CLI Lab Interpretation (test code = 05847-7) Abnormal [facility] Venous Blood Gas and Comprehensive Xmzlk9187-73-23 21:55:45* Test Item Value Reference Range Interpretation Comme nts POC V Temp (test code = 3371621669) DegC POC V Source (test code = 3452326053) JOHANNA POC V PO2 (test code = 2705-2) See_Comment [Automated messa ge] The system which generated this result transmitted reference range: 20 - 49 mmHg. The reference range was not used to interpret this result as normal/abnormal. POC V pH (test code = 2746-6) 7.28-7.42 POC V PCO2 (test code = 2020-) See_Comment L [Automated messa ge] The system which generated this result transmitted reference range: 38 - 52 mmHg. The reference range was not used to interpret this result as normal/abnormal. POC V Oxyhgb (test code = 4287349352) 32.4 % 95-100 L POC V O2 Sat (vanna) (test code = 9367812443) 32.7 % 40.0-70.0 L POC V O2 Sat (calc) (test code = 2711-0) 44 % 40-70 POC V HCO3 (test code = 46384-2) 24 mmol/L 22-26 POC V Carboxy (test code = 2193772418) 0.3 % Non-Smoker: 0.0-2.0 Smoker: 0.0-9.0 Reference RangeNon-Smoker 0.0-2.0 ? ?Smoker 0.0-9.0 POC V BE (test code = 1927-3) -1 mmol/L -2-2 POC V Methgb (test code = 2617-9) 0.0-1.4 POC V Hgb Tot (test code = 63762-0) 8.9 g/dL 11.2-15.7 L POC V Hct (calc) (test code = 97011-5) 27 % 34.1-44.9 L POC V Na (test code = 94593-7) See_Comment [Automated messa ge] The system which generated this result transmitted reference range: 135 - 145 mEq/L. The reference range was not used to interpret this result as normal/abnormal. POC V K (test code = 96639-9) See_Comment H [Automated messa ge] The system which generated this result transmitted reference range: 3.5 - 5.1 mEq/L. The reference range was not used to interpret this result as normal/abnormal. POC V Cl (test code = 39863-5) See_Comment [Automated messa ge] The system which generated this result transmitted reference range: 95 - 109 mEq/L. The reference range was not used to interpret this result as normal/abnormal. POC V Glu (test code = 09568-9) 135 mg/dL 70-99 H POC V LA (test code = 2519-7) See_Comment H [Automated messa ge] The system which generated this result transmitted reference range: 0.5 - 2.2 mMol/L. The reference range was not used to interpret this result as normal/abnormal. POC V Ca Ion (test code = 80264-1) See_Comment [Automated messa ge] The system which generated this result transmitted reference range: 1.05 - 1.25 mMol/L. The reference range was not used to interpret this result as normal/abnormal. POC V Ca Ion (7.4) (test code = 8859288411) See_Comment H [Automated messa ge] The system which generated this result transmitted reference range: 1.05 - 1.25 mMol/L. The reference range was not used to interpret this result as normal/abnormal. POC Performing Location (test code = 3864902646) [facility] CLI Lab Interpretation (test code = 22486-2) Abnormal [facility] Venous Blood Gas and Comprehensive Egqiw4457-25-88 20:27:17* Test Item Value Reference Range Interpretation Comme nts POC V Temp (test code = 5345412746) DegC POC V Source (test code = 5007803134) JOHANNA POC V PO2 (test code = 2705-2) See_Comment [Automated messa ge] The system which generated this result transmitted reference range: 20 - 49 mmHg. The reference range was not used to interpret this result as normal/abnormal. POC V pH (test code = 2746-6) 7.28-7.42 POC V PCO2 (test code = 1-4) See_Comment L [Automated messa ge] The system which generated this result transmitted reference range: 38 - 52 mmHg. The reference range was not used to interpret this result as normal/abnormal. POC V Oxyhgb (test code = 8740126474) 33.1 % 95-100 L POC V O2 Sat (vanna) (test code = 1652873106) 33.5 % 40.0-70.0 L POC V O2 Sat (calc) (test code = 2711-0) 47 % 40-70 POC V HCO3 (test code = 28471-0) 23 mmol/L 22-26 POC V Carboxy (test code = 4323628621) Non-Smoker: 0.0-2.0 Smoker: 0.0-9.0 % Reference RangeNon-Smoker 0.0-2.0 ? ?Smoker 0.0-9.0 POC V BE (test code = 1927-3) -2 mmol/L -2-2 POC V Methgb (test code = 2617-9) 1 % 0.0-1.4 POC V Hgb Tot (test code = 48757-4) 9.1 g/dL 11.2-15.7 L POC V Hct (calc) (test code = 26997-6) 27 % 34.1-44.9 L POC V Na (test code = 41901-9) See_Comment L [Automated messa ge] The system which generated this result transmitted reference range: 135 - 145 mEq/L. The reference range was not used to interpret this result as normal/abnormal. POC V K (test code = 16044-1) See_Comment H [Automated messa ge] The system which generated this result transmitted reference range: 3.5 - 5.1 mEq/L. The reference range was not used to interpret this result as normal/abnormal. POC V Cl (test code = 98702-8) See_Comment [Automated messa ge] The system which generated this result transmitted reference range: 95 - 109 mEq/L. The reference range was not used to interpret this result as normal/abnormal. POC V Glu (test code = 15630-6) 138 mg/dL 70-99 H POC V LA (test code = 2519-7) See_Comment HH [Automated messa ge] The system which generated this result transmitted reference range: 0.5 - 2.2 mMol/L. The reference range was not used to interpret this result as normal/abnormal. POC V Ca Ion (test code = 88862-1) See_Comment [Automated messa ge] The system which generated this result transmitted reference range: 1.05 - 1.25 mMol/L. The reference range was not used to interpret this result as normal/abnormal. POC V Ca Ion (7.4) (test code = 5142180854) See_Comment [Automated messa ge] The system which generated this result transmitted reference range: 1.05 - 1.25 mMol/L. The reference range was not used to interpret this result as normal/abnormal. POC Performing Location (test code = 1927046748) [facility] CLI Lab Interpretation (test code = 29654-5) Abnormal [facility] Wrfxtnr1766-72-19 16:27:34* Test Item Value Reference Range Interpretation Comme nts POC Glu (test code = 4763857659) 144 mg/dL 70-99 H POC Glu Comment 1 (test code = 3837513929) Notified RN/MD POC Performing Location (micha t code = 7093701610) 4 CCU Lab Interpretation (test cod e = 73885-5) Abnormal [facility] Jybnusf6852-10-00 13:04:32* Test Item Value Reference Range Interpretation Comme nts POC Glu (test code = 7804801514) 227 mg/dL 70-99 H POC Glu Comment 1 (test code = 8332064854) Notified RN/MD POC Performing Location (micha t code = 4176127635) 4 CCU Lab Interpretation (test cod e = 06129-6) Abnormal [facility] Fkufyox8340-86-48 11:40:35* Test Item Value Reference Range Interpretation Comme nts POC Glu (test code = 9285367874) 231 mg/dL 70-99 H POC Glu Comment 1 (test code = 9351991259) Notified RN/MD POC Performing Location (micha t code = 9070418198) 4 CIMU Lab Interpretation (test cod e = 43305-9) Abnormal [facility] Yfppjqf3182-98-74 08:30:59* Test Item Value Reference Range Interpretation Comme nts POC Glu (test code = 8900046414) 216 mg/dL 70-99 H POC Glu Comment 1 (test code = 5778804482) Notified RN/MD POC Performing Location (micha t code = 0580581665) 4 CCU Lab Interpretation (test cod e = 86898-6) Abnormal [facility] Activated Clotting Szrl5659-94-74 06:39:02* Test Item Value Reference Range Interpretation Comme nts POC Activated Clotting Time (test code = 239) seconds POC Performing Location (micha t code = 0443638096) [facility] Ikpyqdd6908-81-03 18:16:08* Test Item Value Reference Range Interpretation Comme nts POC Glu (test code = 7118636558) 186 mg/dL 70-99 H POC Glu Comment 1 (test code = 1658565341) Notified RN/MD POC Performing Location (micha t code = 7959387793) HV4 CCU Lab Interpretation (test cod e = 69872-5) [facility] Feyidho9257-64-89 15:56:13* Test Item Value Reference Range Interpretation Comme nts Strep pneumoniae Ag (test co de = 85109-2) Negative Negative Lab Interpretation (test cod e = 61588-2) Normal [facility] Czhqaqc2016-17-30 12:20:08* Test Item Value Reference Range Interpretation Comme nts POC Glu (test code = 6640579084) 238 mg/dL 70-99 H POC Glu Comment 1 (test code = 6916772866) Notified RN/MD POC Performing Location (micha t code = 3205996321) HV4 CCU Lab Interpretation (test cod e = 70873-5) Abnormal [facility] Arterial Blood Gas and Comprehensive Foqfq5399-68-80 11:33:43* Test Item Value Reference Range Interpretation Comme nts POC A Temp (test code = 0829757974) DegC POC A Source (test code = 4492546222) ART POC A pH (test code = 2744-1) 7.35-7.45 POC A PCO2 (test code = 2018-) See_Comment LL [Automated messa ge] The system which generated this result transmitted reference range: 35 - 45 mmHg. The reference range was not used to interpret this result as normal/abnormal. POC A PO2 (test code = 2703-7) See_Comment L [Automated messa ge] The system which generated this result transmitted reference range: 80 - 100 mmHg. The reference range was not used to interpret this result as normal/abnormal. POC A HCO3 (test code = 1960-4) See_Comment L [Automated messa ge] The system which generated this result transmitted reference range: 22 - 26 mMol/L. The reference range was not used to interpret this result as normal/abnormal. POC A BE (test code = 1925-7) See_Comment L [Automated messa ge] The system which generated this result transmitted reference range: -2 - 2 mMol/L. The reference range was not used to interpret this result as normal/abnormal. POC A O2 Sat (calc) (test code = 2708-6) 94.4 % 95-100 L POC A O2 Sat (vanna) (test code = 0339035022) 96.7 % 95.0-100.0 POC A Oxyhgb (test code = 7525547287) 94 % 95-100 L POC A Carboxy (test code = 1782730444) 2 % Non-Smoker: 0.0-2.0 Smoker: 0.0-9.0 Reference RangeNon-Smoker 0.0-2.0 ? ?Smoker 0.0-9.0 POC A Methgb (test code = 2615-3) 0.9 % 0.0-1.4 POC A Hgb Tot (test code = 10359-0) 8.8 g/dL 11.2-15.7 L POC A Hct (calc) (test code = 79713-4) 26 % 34.1-44.9 L POC A Na (test code = 91908-4) See_Comment L [Automated messa ge] The system which generated this result transmitted reference range: 135 - 145 mEq/L. The reference range was not used to interpret this result as normal/abnormal. POC A K (test code = 1980008) See_Comment [Automated messa ge] The system which generated this result transmitted reference range: 3.5 - 5.1 mEq/L. The reference range was not used to interpret this result as normal/abnormal. POC Chloride (test code = 6958024) See_Comment [Automated messa ge] The system which generated this result transmitted reference range: 95 - 109 mEq/L. The reference range was not used to interpret this result as normal/abnormal. POC A Glu (test code = 2339-0) 247 mg/dL 70-99 H POC A LA (test code = 224) See_Comment [Automated messa ge] The system which generated this result transmitted reference range: 0.5 - 2.2 mMol/L. The reference range was not used to interpret this result as normal/abnormal. POC A Ca Ion (test code = 49233-5) See_Comment [Automated messa ge] The system which generated this result transmitted reference range: 1.05 - 1.25 mMol/L. The reference range was not used to interpret this result as normal/abnormal. POC A Ca Ion (7.4) (test code = 8755735332) 1.21 mmol/L 1.05-1.25 POC Performing Location (test code = 4901310146) HVI BG CLI Lab Interpretation (test code = 36640-2) Abnormal [facility] Rjpoqtn2493-52-99 07:23:59* Test Item Value Reference Range Interpretation Comme [facility] POC Glu (test code = 1784811756) 189 mg/dL 70-99 H POC Performing Location (micha t code = 5074101150) HV4 CIMU Lab Interpretation (test cod e = 26252-8) [facility] 1 [id number] 03:51:22* Test Item Value Reference Range Interpretation Comme [facility] Product Code (test code = 25) [id number] Unit Number (test code = 1624) [id number] Unit ABO (test code = 7749858) A Unit RH (test code = 9876141) POS Crossmatch (test code = 9407223) Compatible Dispense Status (test code = 1623) Transfused Blood Expiration Date (test code = 530) Product Blood Type (test cod e = 532) Unit Volume (test code = 1322-7) 300 mL [facility] Vlomjfg9349-07-36 03:46:52* Test Item Value Reference Range Interpretation Comme [facility] POC Glu (test code = 6591953857) 192 mg/dL 70-99 H POC Performing Location (micha t code = 7833826425) HV4 CCU Lab Interpretation (test cod e = 53530-8) Abnormal [facility] Arterial Blood Gas and Comprehensive Mrdte0618-26-05 02:06:44* Test Item Value Reference Range Interpretation Comme nts POC A Temp (test code = 1051782443) DegC POC A Source (test code = 4625055836) ART POC A pH (test code = 2744-1) 7.35-7.45 POC A PCO2 (test code = 2019-) See_Comment [Automated messa ge] The system which generated this result transmitted reference range: 35 - 45 mmHg. The reference range was not used to interpret this result as normal/abnormal. POC A PO2 (test code = 2703-7) See_Comment L [Automated messa ge] The system which generated this result transmitted reference range: 80 - 100 mmHg. The reference range was not used to interpret this result as normal/abnormal. POC A HCO3 (test code = 1960-4) See_Comment L [Automated messa ge] The system which generated this result transmitted reference range: 22 - 26 mMol/L. The reference range was not used to interpret this result as normal/abnormal. POC A BE (test code = 1925-7) See_Comment L [Automated messa ge] The system which generated this result transmitted reference range: -2 - 2 mMol/L. The reference range was not used to interpret this result as normal/abnormal. POC A O2 Sat (calc) (test code = 2708-6) 94 % 95-100 L POC A O2 Sat (vanna) (test code = 6104497682) 95.4 % 95.0-100.0 POC A Oxyhgb (test code = 6161949707) 93.8 % 95-100 L POC A Carboxy (test code = 7036406034) 0.8 % Non-Smoker: 0.0-2.0 Smoker: 0.0-9.0 Reference RangeNon-Smoker 0.0-2.0 ? ?Smoker 0.0-9.0 POC A Methgb (test code = 2615-3) 0.8 % 0.0-1.4 POC A Hgb Tot (test code = 76004-6) 7.6 g/dL 11.2-15.7 L POC A Hct (calc) (test code = 88481-6) 23 % 34.1-44.9 L POC A Na (test code = 57547-5) See_Comment L [Automated messa ge] The system which generated this result transmitted reference range: 135 - 145 mEq/L. The reference range was not used to interpret this result as normal/abnormal. POC A K (test code = 8267299) See_Comment [Automated messa ge] The system which generated this result transmitted reference range: 3.5 - 5.1 mEq/L. The reference range was not used to interpret this result as normal/abnormal. POC Chloride (test code = 8373952) See_Comment [Automated messa ge] The system which generated this result transmitted reference range: 95 - 109 mEq/L. The reference range was not used to interpret this result as normal/abnormal. POC A Glu (test code = 2339-0) 252 mg/dL 70-99 H POC A LA (test code = 224) See_Comment [Automated messa ge] The system which generated this result transmitted reference range: 0.5 - 2.2 mMol/L. The reference range was not used to interpret this result as normal/abnormal. POC A Ca Ion (test code = 98662-4) See_Comment [Automated messa ge] The system which generated this result transmitted reference range: 1.05 - 1.25 mMol/L. The reference range was not used to interpret this result as normal/abnormal. POC A Ca Ion (7.4) (test code = 4841351634) 1.21 mmol/L 1.05-1.25 POC A O2 Device #1 (test code = 6838728558) 2L NC POC Performing Location (test code = 7448834953) HVI BG CLI Lab Interpretation (test code = 92434-9) Abnormal [facility] Venous Blood Gas and Comprehensive Yarpk0817-65-89 01:24:15* Test Item Value Reference Range Interpretation Comme nts POC V Temp (test code = 2989826290) DegC POC V Source (test code = 4673521842) JOHANNA POC V PO2 (test code = 2705-2) See_Comment [Automated messa ge] The system which generated this result transmitted reference range: 20 - 49 mmHg. The reference range was not used to interpret this result as normal/abnormal. POC V pH (test code = 2746-6) 7.28-7.42 POC V PCO2 (test code = 2021-4) See_Comment L [Automated messa ge] The system which generated this result transmitted reference range: 38 - 52 mmHg. The reference range was not used to interpret this result as normal/abnormal. POC V Oxyhgb (test code = 6274058227) 62.2 % 95-100 L POC V O2 Sat (vanna) (test code = 3492638681) 63 % 40.0-70.0 POC V O2 Sat (calc) (test code = 2711-0) 69 % 40-70 POC V HCO3 (test code = 18499-3) 20 mmol/L 22-26 L POC V Carboxy (test code = 9401400548) 0.7 % Non-Smoker: 0.0-2.0 Smoker: 0.0-9.0 Reference RangeNon-Smoker 0.0-2.0 ? ?Smoker 0.0-9.0 POC V BE (test code = 1927-3) -5 mmol/L -2-2 L POC V Methgb (test code = 2617-9) 0.0-1.4 POC V Hgb Tot (test code = 90884-8) 7.2 g/dL 11.2-15.7 L POC V Hct (calc) (test code = 54112-1) 22 % 34.1-44.9 L POC V Na (test code = 58969-3) See_Comment [Automated messa ge] The system which generated this result transmitted reference range: 135 - 145 mEq/L. The reference range was not used to interpret this result as normal/abnormal. POC V K (test code = 76123-0) See_Comment [Automated messa ge] The system which generated this result transmitted reference range: 3.5 - 5.1 mEq/L. The reference range was not used to interpret this result as normal/abnormal. POC V Cl (test code = 91327-3) See_Comment [Automated messa ge] The system which generated this result transmitted reference range: 95 - 109 mEq/L. The reference range was not used to interpret this result as normal/abnormal. POC V Glu (test code = 30891-3) 251 mg/dL 70-99 H POC V LA (test code = 2519-7) See_Comment [Automated messa ge] The system which generated this result transmitted reference range: 0.5 - 2.2 mMol/L. The reference range was not used to interpret this result as normal/abnormal. POC V Ca Ion (test code = 99025-4) See_Comment [Automated messa ge] The system which generated this result transmitted reference range: 1.05 - 1.25 mMol/L. The reference range was not used to interpret this result as normal/abnormal. POC V Ca Ion (7.4) (test code = 7046191570) See_Comment [Automated messa ge] The system which generated this result transmitted reference range: 1.05 - 1.25 mMol/L. The reference range was not used to interpret this result as normal/abnormal. POC Performing Location (test code = 2855270310) HVI BG CLI Lab Interpretation (test code = 79102-5) Abnormal [facility] Zsfxpev4579-19-94 00:44:47* Test Item Value Reference Range Interpretation Comme nts POC Glu (test code = 6797584693) 209 mg/dL 70-99 H POC Performing Location (micha t code = 1238715043) HV4 CIMU Lab Interpretation (test cod e = 73700-3) Abnormal [facility] Ebdozaj3163-39-53 18:30:25* Test Item Value Reference Range Interpretation Comme nts POC Glu (test code = 9737399178) 197 mg/dL 70-99 H POC Performing Location (micha t code = 2936973679) HV4 CCU Lab Interpretation (test cod e = 30841-2) Abnormal [facility] Xjggxif7225-84-96 16:49:09* Test Item Value Reference Range Interpretation Comme nts POC Glu (test code = 7004394787) 180 mg/dL 70-99 H POC Performing Location (micha t code = 0655125214) HV4 CCU Lab Interpretation (test cod e = 40283-5) [facility] fntssdsw7117-41-11 08:26:09* Test Item Value Reference Range Interpretation Comme nts BSA (test code = 5688417767) 1.98 m2 LV est EF (test code = 1768447481) 46 % LV A4C EF (test code = 2736510773) 50 % LV stroke vol (test code = 8827357526) 41 ml LV SI (A4C) (test code = 1708215834) 24.2 ml/m2 LV SV (A4C) (test code = 5333185143) 46.8 ml LVIDd (test code = 5035194899) 54 mm LVIDs (test code = 9356944998) 42 mm LV ESV A4C (test code = 2764587028) 47.1 mL LV EDV A4C (test code = 0091019838) 93.9 mL LV ESV 2D (test code = 0879725) 77.3 mL LV EDV 2D (test code = 4777764) 143 mL IVSd (test code = 2849759379) 10 mm LVPWd (test code = 6199204688) 9 mm LVOT diam (test code = 5509561407) 18 mm LVOT area (test code = 7218959809) 2.54 cm2 Fractional Shortening 2D (test code = 4157564105) 23 % LVLd (A4C) (test code = 1086628665) 75.2 mm LVLs (A4C) (test code = 0381574724) 65.1 mm MV E pk kayla (test code = 7159181223) 1.07 m/s MV A pk kayla (test code = 8122178857) 1.41 m/s MV E/A ratio (test code = 1144390282) MV DT (test code = 9849174167) 61 ms LVOT pk kayla (test code = 4280140961) 1.02 m/s LVOT mn grad (test code = 6187902933) mmHg LVOT Vmean (test code = 1191506655) 0.69 m/s LVOT VTI (test code = 2508476845) 16 cm LA size (test code = 8664798829) 34 mm RVOT VTI (test code = 6050050109) 18.1 cm RVOT pk kayla (test code = 8410763498) 0.98 m/s RVOT Vmean (test code = 4546617365) 0.67 m/s AV mn grad (test code = 0043756989) mmHg AV pk grad (test code = 7843501538) mmHg AV mn kayla (test code = 3043851147) 0.81 m/s AV pk kayla (test code = 7424936456) 1.19 m/s AV VTI (test code = 9140032392) 19.7 cm LVOT pk grad (test code = 4193247224) mmHg AV area cont VTI (test code = 6587713833) 2.06 cm2 AV area pk kayla (test code = 0572250817) 2.18 cm2 LVOT Vmax/AV Vmax (test code = 3570656557) 0.86 {ratio} MV mn grad (test code = 0651009552) mmHg MV pk grad (test code = 5894153267) mmHg MV mn kayla (test code = 8189122617) 0.941 m/s MV area cont eq (test code = 9746914453) 1.52 cm2 MV VTI (test code = 6148486210) 26.7 cm TR pk kayla (test code = 3588338381) 1.05 m/s TR pk grad (test code = 4210972230) mmHg PV mn grad (test code = 1088837901) mmHg PV pk kayla (test code = 6158525711) 1.15 m/s PV pk grad (test code = 5492898270) mmHg PV VTI (test code = 1226320) 20.1 cm RVOT mn grad (test code = 0290809123) mmHg RVOT pk grad (test code = 7083197402) mmHg PV mn kayla (test code = 1924602326) 0.79 m/s Ao Root diam diastole (test code = 3732771960) 29 mm MV max kayla (test code = 8687071545) 1.48 cm/s IVSd 2D (test code = 2949718) 9.594384154248312 cm Radiology Study observation (narrative) (test code = 59711-9) CINDY (test code = CINDY) [facility] Rsyqrhf6642-11-30 05:05:24* Test Item Value Reference Range Interpretation Comme [facility] POC Glu (test code = 0609904010) 203 mg/dL 70-99 H POC Performing Location (micha t code = 4708954993) HV2 teacher's aide Interpretation (test cod e = 67678-2) Abnormal [facility] Nmwrgvw1893-08-89 17:17:10* Test Item Value Reference Range Interpretation Comme [facility] POC Glu (test code = 7699779381) 131 mg/dL 70-99 H POC Glu Comment 1 (test code = 4052665689) Notified RN/MD POC Performing Location (micha t code = 1127753655) HV4 CIMU Lab Interpretation (test cod e = 77239-9) Abnormal [facility] Arterial Blood Gas and Comprehensive Hjsut1597-78-90 15:58:48* Test Item Value Reference Range Interpretation Comme nts POC A Temp (test code = 3051910932) DegC POC A Source (test code = 6721201350) ART POC A pH (test code = 2744-1) 7.35-7.45 POC A PCO2 (test code = 2019-) See_Comment H [Automated messa ge] The system which generated this result transmitted reference range: 35 - 45 mmHg. The reference range was not used to interpret this result as normal/abnormal. POC A PO2 (test code = 2703-7) See_Comment [Automated messa ge] The system which generated this result transmitted reference range: 80 - 100 mmHg. The reference range was not used to interpret this result as normal/abnormal. POC A HCO3 (test code = 1960-4) See_Comment H [Automated messa ge] The system which generated this result transmitted reference range: 22 - 26 mMol/L. The reference range was not used to interpret this result as normal/abnormal. POC A BE (test code = 1925-7) See_Comment H [Automated messa ge] The system which generated this result transmitted reference range: -2 - 2 mMol/L. The reference range was not used to interpret this result as normal/abnormal. POC A O2 Sat (calc) (test code = 2708-6) 98.6 % 95-100 POC A O2 Sat (vanna) (test code = 0596658888) 98.3 % 95.0-100.0 POC A Oxyhgb (test code = 1166072107) 97.3 % 95-100 POC A Carboxy (test code = 9737356495) 0.4 % Non-Smoker: 0.0-2.0 Smoker: 0.0-9.0 Reference RangeNon-Smoker 0.0-2.0 ? ?Smoker 0.0-9.0 POC A Methgb (test code = 2615-3) 0.7 % 0.0-1.4 POC A Hgb Tot (test code = 10354-6) 8.4 g/dL 11.2-15.7 L POC A Hct (calc) (test code = 33689-4) 25 % 34.1-44.9 L POC A Na (test code = 05184-0) See_Comment [Automated messa ge] The system which generated this result transmitted reference range: 135 - 145 mEq/L. The reference range was not used to interpret this result as normal/abnormal. POC A K (test code = 2883935) See_Comment [Automated messa ge] The system which generated this result transmitted reference range: 3.5 - 5.1 mEq/L. The reference range was not used to interpret this result as normal/abnormal. POC Chloride (test code = 8655564) See_Comment [Automated messa ge] The system which generated this result transmitted reference range: 95 - 109 mEq/L. The reference range was not used to interpret this result as normal/abnormal. POC A Glu (test code = 2339-0) 176 mg/dL 70-99 H POC A LA (test code = 224) See_Comment [Automated messa ge] The system which generated this result transmitted reference range: 0.5 - 2.2 mMol/L. The reference range was not used to interpret this result as normal/abnormal. POC A Ca Ion (test code = 62617-3) See_Comment [Automated [employer] ge] The system which generated this result transmitted reference range: 1.05 - 1.25 mMol/L. The reference range was not used to interpret this result as normal/abnormal. POC A Ca Ion (7.4) (test code = 0721488459) 1.23 mmol/L 1.05-1.25 POC Performing Location (test code = 6863587879) HVI BG CLI Lab Interpretation (test code = 82411-3) Abnormal [facility] Ehmpqkf6477-57-31 15:33:59* Test Item Value Reference Range Interpretation Comme [facility] POC Glucose (test code = 2340-8) 203 mg/dL 70-99 A Lab Interpretation (test cod e = 63905-7) Abnormal [facility] Xjmecuj6043-85-72 12:06:31* Test Item Value Reference Range Interpretation Comme [facility] POC Glu (test code = 5009305940) 306 mg/dL 70-99 H POC Glu Comment 1 (test code = 4100548250) Notified RN/MD POC Performing Location (micha t code = 6884841265) HV4 CCU Lab Interpretation (test cod e = 11754-3) Abnormal [facility] Arterial Blood Gas and Comprehensive Idzdr6435-44-79 11:19:38* Test Item Value Reference Range Interpretation Comme nts POC A Temp (test code = 2432929242) DegC POC A Source (test code = 2172921051) ART POC A pH (test code = 2744-1) 7.35-7.45 H POC A PCO2 (test code = 2019-) See_Comment L [Automated message] The system which generated this result transmitted reference range: 35 - 45 mmHg. The reference range was not used to interpret this result as normal/abnormal. POC A PO2 (test code = 2703-7) See_Comment [Automated message] The system which generated this result transmitted reference range: 80 - 100 mmHg. The reference range was not used to interpret this result as normal/abnormal. POC A HCO3 (test code = 1960-4) See_Comment [Automated message] The system which generated this result transmitted reference range: 22 - 26 mMol/L. The reference range was not used to interpret this result as normal/abnormal. POC A BE (test code = 1925-7) See_Comment [Automated message] The system which generated this result transmitted reference range: -2 - 2 mMol/L. The reference range was not used to interpret this result as normal/abnormal. POC A O2 Sat (calc) (test code = 2708-6) 97.4 % 95-100 POC A O2 Sat (vanna) (test code = 6558658197) 98.5 % 95.0-100.0 POC A Oxyhgb (test code = 2797671928) 96.6 % 95-100 POC A Carboxy (test code = 9052742774) 1.3 % Non-Smoker: 0.0-2.0 Smoker: 0.0-9.0 Reference RangeNon-Smoker 0.0-2.0 ? ?Smoker 0.0-9.0 POC A Methgb (test code = 2615-3) 0.0-1.4 POC A Hgb Tot (test code = 98362-5) 7.8 g/dL 11.2-15.7 L POC A Hct (calc) (test code = 77886-1) 23 % 34.1-44.9 L POC A Na (test code = 56354-3) See_Comment [Automated message] The system which generated this result transmitted reference range: 135 - 145 mEq/L. The reference range was not used to interpret this result as normal/abnormal. POC A K (test code = 1353756) See_Comment [Automated message] The system which generated this result transmitted reference range: 3.5 - 5.1 mEq/L. The reference range was not used to interpret this result as normal/abnormal. POC Chloride (test code = 3024487) See_Comment [Automated message] The system which generated this result transmitted reference range: 95 - 109 mEq/L. The reference range was not used to interpret this result as normal/abnormal. POC A Glu (test code = 2339-0) 346 mg/dL 70-99 H POC A LA (test code = 224) See_Comment [Automated message] The system which generated this result transmitted reference range: 0.5 - 2.2 mMol/L. The reference range was not used to interpret this result as normal/abnormal. POC A Ca Ion (test code = 56151-5) See_Comment H [Automated message] The system which generated this result transmitted reference range: 1.05 - 1.25 mMol/L. The reference range was not used to interpret this result as normal/abnormal. POC A Ca Ion (7.4) (test code = 8306859981) 1.32 mmol/L 1.05-1.25 H POC A Mode #1 (test code = 9918932934) ACVC PLUS, TI-0.9S POC A Mech R (bpm) (test code = 6649866123) bpm POC A Mech VT (test code = 3949210532) 450 mL POC A PEEP (test code = 3257738443) cmH20 POC A %FIO2 (test code = 0741740147) 30 % POC Performing Location (test code = 8344146791) HVI BG CLI Lab Interpretation (test code = 77284-4) Abnormal [facility] with culture if hzkalemng6961-16-50 04:59:52* Test Item Value Reference Range Interpretation Comme nts UA Color (test code = 6824-7) Light Yellow Yellow UA Turbidity (test code = 6635171565) Slight Cloudy Clear A UA Spec Grav (test code = 8588491) <=1.030 UA pH (test code = 9658711) 5.0-8.0 UA Protein (test code = 2887-8) >=300 Negative mg/dL A UA Glucose (test code = 2349-9) 500 mg/dL Negative A UA Ketones (test code = 1607673535) Trace Negative mg/dL A UA Bilirubin (test code = 4154342) Negative Negative mg/dL UA Blood (test code = 3720739424) Small Negative A UA Urobilinogen (test code = 9101380557) <=1.0 mg/dL UA Nitrite (test code = 24178-3) Negative Negative UA Leuk Esterase (test code = 5799-2) Negative Negative UA Ascorbic Acid (test code = 1576664023) Negative Negative UA Sq Epi (test code = 8394899949) Few Few /LPF UA WBC (test code = 4178203827) See_Comment H [Automated message] The system which generated this result transmitted reference range: 0 - 5 /HPF. The reference range was not used to interpret this result as normal/abnormal. UA RBC (Num) (test code = 4658117751) See_Comment H [Automated message] The system which generated this result transmitted reference range: 0 - 2 /HPF. The reference range was not used to interpret this result as normal/abnormal. UA Bacteria (test code = 5769-5) Occasional None Seen /HPF UA Mucus (test code = 8521716812) Few None Seen Lab Interpretation (test code = 24094-3) Abnormal [facility] Urinalysis W Specific Kbejbtt2360-27-42 19:30:00* Test Item Value Reference Range Interpretation Comme nts POCT U SP GRAV (test code = 3255) 1.015 mg/dl 1.005-1.025 POCT PH U (test code = 3254) 5 mg/dl 5-8 POCT U LEUK EST (test code = 3263) negative Negative - Negative POCT U NIT (test code = 3262) negative Negative - Negati ve POCT U PROT (test code = 3259) 500 Negative - Negative POCT U GLU (test code = 3256) 1000 Negative - Negati ve POCT U KETONE (test code = 3258) negative Negative - Negative POCT U UROBILI (test code = 3260) 0.2 mg/dl 0.2-1 POCT U BILI (test code = 3261) negative Negative - Negative POCT U BLD (test code = 3257) trace Negative - Negati ve POCT U COLOR (test code = 3266) POCT U APPEAR (test code = 3267) Lab Interpretation (test cod e = 94730-4) Abnormal [facility] Consult Notes Date/Time Note Provider Source 2024-04-09 12:19:15 Associated Order(s): IP CONSULT TO MAILING MANAGER Diabetes education note: Patient education Areas of instructions Blood glucose control: Blood glucose monitoring schedule- Check 2 times a day before breakfast and bedtime. Make a logbook and bring this to the follow up visit with PCP or Bobbin Presser, result interpretation/record keeping, and type of glucose monitor (pt has own glucometer). Blood glucose target: 80-130 before meals. Patient's A1C is Lab Results Component Value Date Hgb A1C 10.41 (H) 03/27/2024 and goal is <7%. Complications: Acute complication- risk for infection and wound may not heal properly if blood sugar is not controlled. Chronic complications- cardiovascular disease, neuropathy, retinopathy, and nephropathy. Prevention and management: Hyperglycemia- cause/signs/symptoms, proper prevention, and management. Hypoglycemia- awareness, cause/signs/symptoms, and proper prevention and treatment. Diet: Eat <4 portions or < 60 grams of carbohydrate per meal. Avoid sugary beverages like regular soda, Gatorade, fruit juice, honey, and switch to using diet, zero, or sugar-free drinks and use sugar substitute. Follow the diabetes nutrition placemat and food list as a guide to make portion-controlled meals. Foot care: Examine feet/skin daily for any blisters, redness, or sores. Cost issue: Provided a copy of [employer] list and cost of supplies- glucometer kit Medication administration: Dosage, route, scheduling (Please listen carefully on discharge for frequency and dosing of your medicine. We are still adjusting your insulin needs while in the hospital (patient is currently on Glargine), label reading / pre-administration procedures, purpose, action, precautions / side effects, and special administration storage. Insulin administration: Administration/site/drawing ; site rotation. Person instructed: Patient. Barriers of learning: None evident. Method of instruction: Handouts, listening/conversation, explanation, and demonstration. Outcome of instructions: Return demonstration correctly. Verbalizes understanding. Education handouts provided: Blood glucose numbers chart; Hyper/hypoglycemia signs and symptoms; Acute and chronic complications; Caring for Your Feet; Diabetes supplies list ([employer] flyer); How to check your blood glucose illustration; Safety with needles; Diabetes nutrition placemat; Lantus picture+ instructions; Insulin administration via syringe and pen needle illustration. Diabetes Education Comment Seen pt in bed with dialysis in progress. Son was at bedside. Per patient and son, she has diabetes since 2005, at home she is on Novolin 70/30 which she buys from [employer]. Patient has a glucometer at home and knows how to check blood glucose. Son lives with mom. Teaching points above discussed. We reviewed glucose monitoring, insulin injection plus administration, low-carb diet, sugar-free beverages, hyper/hypoglycemia management, and PCP follow up visit with glucose log. Son was able to return demonstrate insulin injection both via syringe and pen needle correctly. Contact information provided for any questions even after discharge. Please write scripts for: DME Prescription/diabetic testing supplies: Blood glucose monitor, blood glucose test strips, and lancets DME Prescription/Insulin administration supplies: Insulin needle/syringe combo misc Mini pen needles Bree James RN, [facility] Certified Diabetes Care and Archaeology Professor Office / pager [phone] L PRESSER Nutrition [facility] 2024-04-05 12:32:15 Interventional radiology brief consult note [facility] Reason for consult: Interventional radiology has been consulted for tunneled dialysis catheter placement in the setting of end-stage renal disease. Images and case has been reviewed and approved by interventional radiology attendings. Elvis Freeman is a 63 y.o. female with a past medical history significant of complete heart block, now s/p placement of temporary pacer. Whom presents for image guided tunneled dialysis catheter placement under moderate sedation. The benefits, risk and alternatives for the procedure have been discussed in detail with the patient who verbalizes understanding and consents to proceed. Patient has been n.p.o. since midnight in preparation for the procedure. There are no acute changes in history and physical exam from the documented date on 04/05/24 by MERA Kennedy . Primary/Ordering team has been updated in regards to the scheduled procedure. Please contact interventional radiology with any questions at extension [phone]. Thank you for your consultation. Mallampati score: Sedation Plan ASA 2 Mallampati class: II. Risks, benefits, and alternatives discussed with patient. Images: XR chest 1 view Result Date: 04/05/2024 EXAM: XR CHEST 1 VIEW DATE: 04/04/2024 21:22 INDICATION: shortness of breath COMPARISON: Same day chest x-ray TECHNIQUE: AP chest Right IJ catheter remains in place. Stable enlarged cardiomediastinal silhouette. There are stable bilateral retrocardiac opacities obscuring the hemidiaphragms and silhouette of the descending thoracic aorta which may represent bilateral pleural effusions with or without underlying atelectasis or consolidation of both lower lobes. Stable at least small bilateral pleural effusions. Stable diffuse dependent predominant bilateral airspace opacities. No pneumothorax in this portable radiograph. Osseous structures are unchanged. XR chest 1 view Result Date: 04/04/2024 EXAM: XR CHEST 1 VIEW DATE: 04/04/2024 INDICATION: abnormal breath sounds COMPARISON: 04/01/2024 TECHNIQUE: AP chest Stable right hemodialysis catheter. Stable enlarged cardiomediastinal silhouette. Aortic arch calcifications. Improvement in lung aeration with decreased atelectatic changes and hazy opacities compared to most recent radiograph. No definite pleural effusion. No pneumothorax in this portable radiograph. Regional skeleton is unchanged. Labs: Pertinent Labs : Labs in chart were reviewed. Lab Results Component Value Date WBC 13.28 (H) 04/05/2024 POC V Hgb Tot 8.7 (L) 04/05/2024 Hgb 8.4 (L) 04/05/2024 POC V Hct (calc) 26.0 (L) 04/05/2024 Hct 27.3 (L) 04/05/2024 Plt Count 184 (L) 04/05/2024 Lab Results Component Value Date POC V Na 128 (L) 04/05/2024 Sodium Lvl 134 (L) 04/05/2024 POC V K 4.5 04/05/2024 Potassium Lvl 4.3 04/05/2024 POC V Cl 98 04/05/2024 Chloride Lvl 101 04/05/2024 CO2 Lvl 25.5 04/05/2024 BUN 28 (H) 04/05/2024 Creatinine Lvl 3.34 (H) 04/05/2024 POC V Glu 265 (H) 04/05/2024 Glucose Lvl 260 (H) 04/05/2024 POC Glu 215 (H) 04/05/2024 Lab Results Component Value Date PTT 34.5 04/05/2024 Prothrombin Time (PT) 15.5 (H) 04/05/2024 INR 1.20 (H) 04/05/2024 Vitals: Vitals: 04/05/24 1130 04/05/24 1145 04/05/24 1200 04/05/24 1215 BP: 116/84 (!) 173/98 (!) 178/105 109/63 Pulse: 81 78 81 80 Resp: (!) 32 (!) 31 (!) 36 24 Temp: SpO2: 96% 96% 99% 100% Current anticoagulation: Last Anticoag Admin heparin 50 units/mL in sodium chloride 0.45 % New Bag 13 Units/kg/hr at 0333 Frequency: Continuous There are additional administrations since 04/02/24 1232 that are not shown. Orders not given: heparin 1000 units/mL injection 500 Units Diet: Dietary Orders (From admission, onward) Start Ordered 04/05/24 0001 NPO Diet NPO except: Sips with meds Diet effective midnight Comments: For IR procedure Question: NPO except: Answer: Sips with meds 04/04/24 1950 Carlos Langston APRN, CAD DESIGN ENGINEER-C, [facility]-BC, [facility] Department of interventional radiology [facility] L PRESSER Nurse Practitioner [facility] 2024-04-03 17:16:23 TRAUMA SURGERY ~ HISTORY & PHYSICAL / CONSULT NOTE Date of Evaluation: 04/03/24 Trauma Level: Routine Consult Origin: Cardiac critical care Injury History / HPI: Elvis Freeman is a 63 y.o. female admitted to the cardiac ICU, after being found unresponsive, determined to have complete heart block and had placement of temporary pacemaker and was intubated on scene for airway protection, had a C collar in place in the ED that was removed in the ED on 04/27 before patient was transferred to the ICU. Patient now extubated and doing well on room air. She has been walking with physical therapy. She denies back pain, extremity pain, pain with movement. History Past Medical History: None Past Surgical Hx: None Social Hx: Allergies: No known allergies. Medications: None Last Meal: Unknown Review of Systems: 12 point ROS negative other than that mentioned in HPI Primary Survey Airway Patent Airway Interventions: AirwayInterventions: None Breathing Respiratory Distress: No Right Breath Sounds: Breath: Present Left Breath Sounds: Breath: Present Subcutaneous Emphysema: YES / NO: No Chest Wall Deformity: YES / NO: No Breathing Interventions: None Circulation ED Triage Vitals Temp Heart Rate Resp BP 03/27/2421403/27/2421403/27/2421403/27/24219 (!) 35.7 ?C (96.3 ?F) (!) 39 25 84/60 SpO2 Temp Source Heart Rate Source Patient Position 03/27/2421403/27/24214 -- 03/27/24219 98 % Axillary Sitting BP Location FiO2 (%) 03/27/2421903/27/24234 Right arm 50 % Circulation Interventions: CircInterventions: Other: None Transfusions: Transfusions: None Disability Eye Opening: Spontaneously (4) Verbal: Verbal: Oriented (5) Motor: Normal motor (6) GCS: 15 Grossly Moves: Moving: RUE, LUE, RLE, and LLE Exposure Back: Exam: Normal Secondary Survey Neurological Power: RUE: Power: 5: Normal Power LUE: Power: 5: Normal Power RLE: Power: 5: Normal Power LLE: Power: 5: Normal Power Sensation: RUE: N/R/A: Normal LUE: N/R/A: Normal RLE: N/R/A: Normal LLE: N/R/A: Normal Right Pupil: Pupil: Reactive Left Pupil: Pupil: Reactive Head HeadExam: Normal Neck NeckExam: Normal Spine C-spine: Spine: Normal T-spine: Spine: Normal L-spine: Spine: Normal Chest Right: Chest: Normal Left: Chest: Normal Abdomen Abdomen: Normal Pelvis Pelvis: Stable Genitourinary Deferred Vascular Right Radial: Pulse: Normal Left Radial: Pulse: Normal Right Carotid: Pulse: Normal Left Carotid: Pulse: Normal Right Femoral: Pulse: Normal Right PT: Pulse: Normal Right DP: Pulse: Normal Left Femoral: Pulse: Normal Left PT: Pulse: Normal Left DP: Pulse: Normal Lab Results CBC Lab Results Component Value Date WBC 13.97 (H) 04/03/2024 Hgb 9.1 (L) 04/03/2024 MCV 85.2 04/03/2024 Plt Count 191 04/03/2024 Chemistry Lab Results Component Value Date Sodium Lvl 132 (L) 04/03/2024 Potassium Lvl 4.4 04/03/2024 Chloride Lvl 102 04/03/2024 CO2 Lvl 20.9 04/03/2024 Creatinine Lvl 2.20 (H) 04/03/2024 Calcium Lvl 8.1 (L) 04/03/2024 Albumin Lvl 2.0 (L) 04/03/2024 Magnesium 2.22 04/03/2024 Phosphorus Lvl 2.3 (L) 04/03/2024 Lab Results Component Value Date INR 1.24 (H) 04/03/2024 PTT 81.4 (H) 04/03/2024 CK Total 124 03/27/2024 Natriuretic Peptide B 1,175 (H) 04/01/2024 LFTs Lab Results Component Value Date AST 200 (H) 04/03/2024 ALT 1,078 (H) 04/03/2024 Alkaline Phosphatase 199 (H) 04/03/2024 Albumin Lvl 2.0 (L) 04/03/2024 Blood Gas Lab Results Component Value Date POC V pH 7.41 03/31/2024 POC V PCO2 40 03/31/2024 POC V PO2 31 03/31/2024 POC V HCO3 25 03/31/2024 POC V BE 1 03/31/2024 POC V O2 Sat (calc) 60 03/31/2024 POC V O2 Sat (vanna) 44.8 03/31/2024 POC V Oxyhgb 44.1 (L) 03/31/2024 Potassium Lvl 4.4 04/03/2024 Chloride Lvl 102 04/03/2024 Sodium Lvl 132 (L) 04/03/2024 POC Glu 330 (H) 04/03/2024 POC A LA 0.7 04/02/2024 TEG Toxicology No components found for: "ETH", "ACETA", "JAVIER", "LABOSMO", "OSMOLGAP" @UDS@ IMAGING [x] CXR: Encounter Date: 03/27/24 XR chest 1 view Narrative EXAM: XR CHEST 1 VIEW DATE: 04/01/2024 8:05 INDICATION: dyspnea . TECHNIQUE: Chest 1 view FINDINGS: Comparison is made to March 31. Impression Cardiomediastinal silhouette is unchanged. A right jugular CVC remains in place. There are increasing bilateral infrahilar airspace opacities that could be due to atelectasis, aspiration or pneumonia. No pleural effusions. [] Pelvic XR: [] FAST: [x] Cross-Sectional (CT) Imaging: EXAM: CT BRAIN WITHOUT CONTRAST DATE: 03/27/2024 3:10 INDICATION: Fall, intubated . COMPARISON: None. TECHNIQUE: Axial CT images of the brain were obtained. Sagittal and coronal reformats. IV contrast: None DLP: Refer to CT protocol form FINDINGS: No acute intracranial hemorrhage or extra-axial collection. No midline shift or mass effect. No brain parenchymal edema. The ventricles are normal in size, with no hydrocephalus or effacement. The skull base, calvarium, and included facial bones have no acute fracture. The paranasal sinuses and mastoid air cells are predominantly clear. Partially visualized endotracheal tube and gastric tube. IMPRESSION: * No acute intracranial hemorrhage. EXAM: CT CERVICAL SPINE WITHOUT CONTRAST DATE: 03/27/2024 3:10 INDICATION: Fall, intubated. COMPARISON: None TECHNIQUE: Volumetric CT of the cervical spine is acquired without contrast. Axial, coronal and sagittal images are provided. ... Impression 1. No acute fracture or traumatic malalignment of the cervical spine. 2. Multilevel facet hypertrophy and ligamentum flavum thickening/calcifications. This report was dictated by a Mobile Engineer/Fellow/KENYON: Sally Bobby RES, MD 03/27/2024 4:44 I have personally reviewed the images as well as the interpretation and agree with the findings. Dictation Date/time: 03/27/2024 4:40 Electronically Signed by: Clark Alford MD 03/27/2024 5:31 EXAM: CT CHEST WITH CONTRAST EXAM: CT ABDOMEN AND PELVIS WITH CONTRAST DATE: 03/27/2024 3:10 INDICATION: fall, found down, heart block COMPARISON: None TECHNIQUE: Volumetric CT of the chest, abdomen and pelvis is acquired following intravenous administration of contrast. Axial, coronal and sagittal images are provided. FINDINGS: Tourist Cabin Keeper: Noncontributory. Lower Neck: Endotracheal tube above the level of the feliz. Thoracic Aorta and Mediastinum: No mediastinal hematoma or thoracic aortic injury. Normal heart and pericardium. Lungs, Pleura, Diaphragm: No pulmonary contusions. Bilateral dependent atelectasis with partial atelectasis of lower lobes. Trace pleural effusions. No pneumothorax. No diaphragmatic injury. Liver and biliary tree: No injury. Hepatomegaly. No focal lesions. Mild periportal edema is noted. Gallbladder: Surgically absent. Pancreas: No injury. Spleen: No injury. Adrenals: No injury. Heterogeneously enhancing left adrenal nodule measuring 3.2 cm (series 8 image 28). Additional small lipid rich adenoma is noted within the left adrenal gland. Kidneys and ureters: No injury. Mild bilateral perinephric fat stranding is nonspecific. Bladder: No injury. Reproductive organs: No injury. Gastrointestinal tract: No injury. Enteric tube with tip terminating in the stomach. Peritoneum and retroperitoneum: No fluid collections or free air. Lymph nodes: Normal. Vasculature: No vascular injury. Spine/ Bones: No acute osseous abnormality. Multilevel degenerative changes of the thoracolumbar spine are visualized. Soft tissues: Normal. IMPRESSION: 1. No acute traumatic abnormality. 2. Trace pleural effusions. 3. Bilateral dependent atelectasis with partial atelectasis of lower lobes. 4. Heterogeneous left adrenal nodule measuring 3.2 cm. Recommend nonemergent adrenal protocol CT/MRI for further evaluation. This report was dictated by a Mobile Engineer/Fellow/KENYON: Kyle Armstrong, DANA 03/27/2024 4:54 I have personally reviewed the images as well as the interpretation and agree with the findings. Dictation Date/time: 03/27/2024 4:40 Electronically Signed by: Clark Alford MD 03/27/2024 5:56 Summary of Injuries Plans Neuro / Spine ( TBI, BCVI, spine # / SCI ) - No injuries or focal neurological deficits. Can DC spinal precautions - No other injuires noticed on head to toe exam. Additional Diagnoses & Plans: 63F admitted to CCU with complete heart block. She was found down unresponsive at home and brought to the ER. Since the pre-hospital circumstances were unclear, a c-collar was placed and trauma imaging was obtained. The cspine CT was negative and the remainder of her scans showed no traumatic injuries. The collar was removed in the ER. Today, the CCU noted she had an order for spinal precautions (placed 03/27 in the ER) and consulted trauma for evaluation. She is GCS 15 with no cervical spinal tenderness, full ROM in all directions, and has been walking with PT without any complaints. No indication for spinal precautions. Trauma to sign off. Case was discussed with Chief resident Dr Michel who agrees with the plan. Aryan Stokes MD PGY 1 General Surgery [facility] [employer]. Cosigned by Keanu Joseph MD at 04/05/2024 10:54 AM WHEEL PRESSER L PRESSER L PRESSER Associated attestation - Keanu Joseph MD - 04/05/2024 10:54 AM WHEEL PRESSER I reviewed the case with the resident but did not see the patient. I agree with the assessment and plan as documented in the resident's note. General Surgery [facility] 2024-04-03 13:58:42 Reason For Consult Bradycardia History Of Present Illness Layo Ferrer is an elderly female with history of diabetes presented by EMS after being found down and unresponsive by family and determined to be in complete heart block, now s/p placement of temporary pacer and intubated for airway protection in the ED. Per discussion with family, For the last three days she has been vomiting, and "unable to keep anything down." She had no other sympoms in the days proceeding the event. After going to bed the son and heard a loud crash during the middle of the night and found her face down in the bathroom. She was breathing but otherwise unresponsive. She apparently opened her eyes once. EMS was called and she was life flighted to [facility]. No CPR was initiated. Her family is unsure of her PMHx but report she takes insulin and "water pills". They report she has no history of cardiac, kidney, anemia or thyroid problems. They will try and bring her medications when they come to the hospital Trauma workup negative in the ED. In the ED she was found to have complete heart block with a narrow complex escape rhythm at 36, blood pressure was soft with a MAP in the 50s on arterial line. She was transcutaneously paced with concomitant improvement in her heart rate and blood pressure. Currently paced at 80. EP consulted for complete heart block Interval Events - Patient continues to be in sinus rhythm with prolonged TN - Net negative ~800cc in the past 24 hours - Reports lightheadedness with PT Past Medical History She has no past medical history on file. Surgical History She has no past surgical history on file. Social History She has no history on file for tobacco use, alcohol use, and drug use. Allergies Patient has no known allergies. Medications No medications prior to admission. Review of Systems Unable to obtain, intubated and sedated Physical Exam Gen: NAD, laying suprine in bed, appears stated age HEENT: Intubated, PERRLA Neck: supple neck, trachea midline CV: nl s1/s2, RRR, no m/r/g Lung: Normal work of breathing, CTAB Abd: Soft, nt/nd, no masses Ext: Moves all extremities equally, 2+ radial pulse, no edema noted Neuro: AOx3, CN II-XII grossly intact Skin: cool, well perfused, no jaundice, non-erythematous Psych:unable to assess Last Recorded Vitals Blood pressure 115/71, pulse 95, temperature 37.3 ?C (99.1 ?F), resp. rate 23, height 1.651 m (5' 5"), weight 85.7 kg (188 lb 15 oz), SpO2 97%. Relevant Results Encounter Date: 03/27/24 ECG 12 lead Result Value Ventricular Rate 102 Atrial Rate 97 QRS Duration 94 QT/QTc 360 QTc Calculation 469 R-[place] 15 T-[place] 72 Narrative SINUS TACHYCARDIA WITH 1ST DEGREE A-V BLOCK LOW QRS VOLTAGE -- CONSIDER PULMONARY DISEASE, PERICARDIAL EFFUSION, OR NORMAL VARIANT INFERIOR INFARCTION (CITED ON OR BEFORE 29-MAR-2024) NONSPECIFIC ST-T WAVE ABNORMALITY(IES) ABNORMAL ECG WHEN COMPARED WITH ECG OF 31-MAR-2024 19:15, SINUS TACHYCARDIA HAS REPLACED ATRIAL FIBRILLATION QUESTIONABLE CHANGE IN INITIAL FORCES OF INFERIOR LEADS Confirmed by Manny Wiggins ([id number]) on 04/03/2024 10:37:49 AM Transthoracic echo (TTE) complete Result Date: 03/31/2024 Left Ventricle: Left ventricle is smaller than normal. Normal wall thickness in the left ventricle. Left ventricular mass is normal. Normal systolic function with an estimated EF of 60 - 65%. Global longitudinal strain is normal. LV GLS is -18.3%. Unable to assess diastolic function in the left ventricle due to mitral annular calcification. Right Ventricle: Right ventricle size is normal. Normal systolic function in the right ventricle. Left Atrium: Left atrium is mildly dilated. Aortic Valve: Aortic valve is trileaflet. Mildly thickened leaflets in the aortic valve. Mildly calcified leaflets in the aortic valve. Mitral Valve: No leaflet thickening in the mitral valve. No leaflet calcification in the mitral valve. Severe posterior mitral annular calcification. Mild mitral regurgitation present. Mild mitral stenosis present. Mean transmitral gradient 7 mmHg at HR 85 bpm Tricuspid Valve: Mild tricuspid regurgitation present. RVSP is 41.00 mmHg. Mild pulmonary hypertension present. RVSP is 41.00 mmHg. Aorta: Normal sized sinus of Valsalva present. Pericardium: No pericardial effusion present. Transthoracic echo (TTE) limited Result Date: 03/31/2024 Left Ventricle: Left ventricle size is normal. Septal thickening in the left ventricle. Left ventricular regional wall motion abnormalities present. See diagram for wall motion findings. Normal systolic function with an estimated EF of 55 - 60%. Right Ventricle: Right ventricle size is normal. Mildly reduced systolic function in the right ventricle. Aortic Valve: Trileaflet aortic valve sclerosis is present. Mildly thickened leaflets in the aortic valve. Mitral Valve: Moderate posterior mitral annular calcification. Tricuspid Valve: Mild tricuspid regurgitation present. Pulmonary hypertension is not present. Pericardium: No pericardial effusion present. Overall normal LV function, though with inferior/posterior and inferoseptal WMA as noted above; remaining rai appear hyperdynamic. Mildly reduced RV function. Transthoracic echo (TTE) complete Result Date: 03/28/2024 Left ventricle is normal in size with mildly reduced global systolic function and an estimated ejection fraction of 45-50%, by the method of discs. Diastolic function is indeterminate. Right ventricle is normal in size and systolic function. Left atrium appears normal in size. Right atrium is normal in size Aortic valve is trileaflet and sclerotic with normal function. There is mild mitral valve stenosis and a heavily calcified annulus. The transvalvular mean gradient is 4 mmHg, at a HR of 90 bpm. and the MV area by continuity eq is 1.5 cm 2. No significant mitral valve regurgitation is observed. Tricuspid valve leaflets are normal. There is trace tricuspid regurgitation. Unable to estimate right ventricular systolic pressure due to an insufficient TR jet. Pulmonic valve appears normal in structure with trace regurgitation. Aortic root is normal in diameter. Inferior vena cava is normal in diameter with >50% respiratory variation in size. No pericardial effusion is seen. No prior study is currently available for comparison. Assessment & Plan Principal Problem: ST elevation myocardial infarction (STEMI) of inferior wall (HCC) Active Problems: Heart block Hyperglycemia due to diabetes mellitus (CMS/HCC) (HCC) On mechanically assisted ventilation (CMS/HCC) (HCC) Fall GUILHERME (acute kidney injury) (HCC) Acute respiratory alkalosis Anemia of chronic disease Toxic metabolic encephalopathy Acute hypoxemic respiratory failure (HCC) Atelectasis Cardiogenic shock (HCC) Severe sepsis (HCC) Shock liver Hyperkalemia Pleural effusion, bilateral Adrenal nodule (HCC) Shock (CMS/HCC) (HCC) Elvis Freeman is an elderly female with history of diabetes presented by EMS after being found down and unresponsive by family and determined to be in complete heart block. Balloon tip pacemaker placed in the ED with good capture and improvement in HR. At time of presentation EKG showed a narrow complex QRS ~80ms regular escape. Presentation concerning for metabolic etiology of complete heart block which has now resolved with first-degree AV block and intermittent junctional rhythm. Patient has also developed paroxysmal atrial fibrillation seen on EKG as well as telemetry. Her stay has been complicated by hypotension likely secondary to sepsis which may be from a odontogenic source. She has been able to work with PT but reports lightheadedness which is unclear if it is from progress worsening of AV block or deconditioning. # Post-STEMI high degree AV block -Patient's complete heart block has recovered and now developed prolonged first-degree AV block - EKG showing TN ~320 ms but unclear if this is causing symptoms - LHC revealed mid RCA s/p PCI HARI 03/27 - Given that her symptoms are unclear if they are from progress AV block or deconditioning, would recommend 30 day event monitor upon discharge # Paroxysmal atrial fibrillation - Patient is rate controlled as is and not on any medications - [id number] score of at least 4 (hypertension, Diabetes, female, CAD) - Recommend anticoagulation given her stroke risk - Will defer antiplatelet therapy combination to primary team - Maintain magnesium above 2, potassium above 4. TSH within normal limits Thank you for this interesting consult. EP will sign off at this time. Patient was staffed with Dr. Milton. Dung Wells MD Perfusionist Cosigned by Howard Milton MD at 04/06/2024 11:59 PM WHEEL PRESSER L PRESSER L PRESSER L PRESSER Internal Medicine Physician Weston Daniels 2024-04-03 10:02:02 Associated Order(s): IP SCREENING REFERRAL TO NUTRITION SERVICES 04/09: Received SR for PI? No WOCN RN note in at this time. Recommend adding Richard if pt with stage 2 or greater. Continue PO diet. PO intake 0-75%. NUTRITION ASSESSMENT - ADULT Unit: CCU Reason for RD Encounter: PO F/U Findings Nutrition Diagnosis: Nutrition Diagnosis: Inadequate oral intake related to respiratory distress as evidenced by requiring enteral nutrition for nutrient. * Interventions and Recommendation: 1: PLAN: Continue current nutrition plan : 2. Ensure Enlive BID - continue NUTRITION RISK: Low, in 8-10 days Next Date for Nutrition Services Follow Up: 04/10/24 Current Nutrition: Dietary Orders (From admission, onward) Start Ordered 04/01/24 1407 Adult Diet Heart Healthy Diet effective now Question: Diet type Answer: Heart Healthy 04/01/24 1406 Orderered Tube Feeds and Supplements Medication Dose Route Frequency Provider Last Rate Last Admin Ensure Enlive liquid 1 Container 1 Container Oral BID Ирина Kennedy NP 1 Container at 04/02/24 1345 PO/EN/PN Intakes: No data found. Nutrition Visit Information: 04/03: Pt on PO diet and ate 100% of her breakfast. Family encouraging PO intake. Continue ONS. 03/28: TF was never started yesterday. Pt is now extubated. AHA diet ordered. No deficits noted on NFPE 03/27: Intubated. +OGT. 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 Anthropometrics: Height: 165.1 cm (5' 5") Height Method: Stated Weight: Weight Method: Bed scale 85.9kg Body mass index is 31.44 kg/m?. [place] body weight: 57 kg (125 lb 10.6 oz) Adjusted ideal body weight: 68.5 kg (150 lb 15.5 oz) Wt Readings from Last 10 Encounters: 03/31/24 85.7 kg (188 lb 15 oz) Estimated Nutrition Needs: Calculated Energy Needs Using Equations Temp: 37.3 ?C (99.1 ?F) Nutrition Physical Findings per sales & service associate: Orientation Level: Oriented X4 O2 Delivery Method: Nasal cannula Gastrointestinal (WDL): WDL Abdomen Inspection: Soft Abdominal Tenderness: Nontender Bowel Sounds: All quadrants Bowel Sounds (All Quadrants): Active Last BM Date: 04/02/24 Gastrointestinal Symptoms: Nausea; Vomiting LUE: Full movement RUE: Full movement LLE: Full movement RLE: Full movement LUE Edema: Non-pitting RUE Edema: Non-pitting Nutrition Focused Physical Exam - Muscles and Fat: Assessment of Muscle Status Date Assessed: 03/28/24 Muscle Status: No change from prior exam (04/03) Assessment of Fat Status Date Assessed: 03/28/24 Fat Status: No change from prior exam (04/03) Basic Information: Admitting diagnosis: Heart block [I45.9] Clinical course: Principal Problem: Heart block Active Problems: Hyperglycemia due to diabetes mellitus (CMS/HCC) (HCC) On mechanically assisted ventilation (CMS/HCC) (HCC) Fall GUILHERME (acute kidney injury) ([facility]) Acute respiratory alkalosis Anemia of chronic disease Toxic metabolic encephalopathy Acute hypoxemic respiratory failure (HCC) Atelectasis Cardiogenic shock (HCC) Severe sepsis ([facility]) Shock liver Hyperkalemia Pleural effusion, bilateral Medications: aspirin, 81 mg, Oral, Daily calcium gluconate, 2 g, Intravenous, Once Ensure Enlive, 1 Container, Oral, BID gabapentin, 100 mg, Oral, q8h hydrALAZINE, 25 mg, Oral, q8h insulin glargine, 5 Units, Subcutaneous, q PM lidocaine, 1 patch, Apply externally, Daily meropenem, 500 mg, Intravenous, q8h pantoprazole, 40 mg, Intravenous, q24h DIRK polyethylene glycol (PEG) 3350, 17 g, Oral, Daily sennosides, 2 tablet, Oral, Daily sodium chloride, 500 mL, Intravenous, Once ticagrelor, 90 mg, Oral, q12h DIRK heparin, 0.1-40 Units/kg/hr, Last Rate: 19 Units/kg/hr (04/03/24 0711) physiological irrigating solution, 2,500 mL/hr PRN medications: dextrose, dextrose, glucagon, heparin, insulin lispro, menthol-zinc oxide, oxyCODONE, [COMPLETED] Insert peripheral IV AND [COMPLETED] Saline lock IV AND sodium chloride, [COMPLETED] Insert peripheral IV AND [COMPLETED] Saline lock IV AND sodium chloride, Pharmacy to dose vancomycin AND Vancomycin Pharmacy Dosing Labs: Pertinent Labs : Labs in chart were reviewed. Lab Results Component Value Date Hgb A1C 10.41 (H) 03/27/2024 Review / Management: I/O 24 HRS: Intake/Output Summary (Last 24 hours) at 04/03/2024 1003 Last data filed at 04/03/2024 0600 Gross per 24 hour Intake 1011.6 ml Output 1520 ml Net -508.4 ml Unmeasured Stool Occurrence: 1 Monitoring and Evaluation: MONITORING AND EVALUATION: Nutrition Intake : EN intake and tolerance GOAL: Initiate nutrition: Katelyn Mak MPH, RD Tuesday-Tuesday pager [phone] Weekend/Oncall pager [phone] L PRESSER L PRESSER [facility] 2024-04-02 17:11:56 GPR Consult - Problem Focused Patient: ELVIS FREEMAN : 1960 Date/Time: 04/02/2024 5:12 PM Room: [address] CC: General dentistry paged for Hand off from OMFS --> possible septic shock due to odontogenic source HPI: ELVIS FREEMAN is a 63 y.o.F who was presented by EMS after being found unresponsive by family and determined to be in complete heart block, now has tempoary pacer placed and was intubated in the ED. Patien is now back in normal sinus rhythm with prolonged TN and has developed hypotension which is presumed to be caused by an odontogenic source and possible cause of sepsis PMH: Significant for GUILHERME, Heart block, Hyperglycemia due to DM, recent STEMI PSH: pt denies Social Hx: unknown Med: aspirin, 81 mg, Oral, Daily calcium gluconate, 2 g, Intravenous, Once Ensure Enlive, 1 Container, Oral, BID gabapentin, 100 mg, Oral, q8h hydrALAZINE, 25 mg, Oral, q8h insulin glargine, 5 Units, Subcutaneous, q PM lidocaine, 1 patch, Apply externally, Daily meropenem, 500 mg, Intravenous, q8h pantoprazole, 40 mg, Intravenous, q24h DIRK polyethylene glycol (PEG) 3350, 17 g, Oral, Daily sennosides, 2 tablet, Oral, Daily sodium chloride, 500 mL, Intravenous, Once ticagrelor, 90 mg, Oral, q12h DIRK vancomycin, 500 mg, Intravenous, q12h heparin, 0.1-40 Units/kg/hr, Last Rate: 18 Units/kg/hr (04/02/24 0446) physiological irrigating solution, 2,500 mL/hr PRN medications: calcium chloride OR calcium chloride, dextrose, dextrose, glucagon, insulin lispro, magnesium sulfate OR magnesium sulfate, menthol-zinc oxide, oxyCODONE, potassium & sodium phosphates, potassium chloride OR Potassium chloride, potassium phosphate OR potassium phosphate OR potassium phosphate, [COMPLETED] Insert peripheral IV AND [COMPLETED] Saline lock IV AND sodium chloride, [COMPLETED] Insert peripheral IV AND [COMPLETED] Saline lock IV AND sodium chloride, sodium phosphates 15 mmol in sodium chloride 0.9 % 100 mL IVPB OR sodium phosphates 30 mmol in sodium chloride 0.9 % 100 mL IVPB OR sodium phosphates 45 mmol in sodium chloride 0.9 % 100 mL IVPB, Pharmacy to dose vancomycin AND Vancomycin Pharmacy Dosing No Known Allergies Vitals: 04/02/24 1210 04/02/24 1212 04/02/24 1214 04/02/24 1218 BP: 138/75 Pulse: 94 Resp: 26 Temp: 37 ?C (98.6 ?F) 36.8 ?C (98.2 ?F) SpO2: 99% Pertinent Labs : Labs in chart were reviewed. ROS: Negative for odynophagia, dysphagia, dysgeusia, dyspnea, dysphonia, lymphadenopathy. Obj EOE: Head: normocephalic, atraumatic Ears: hearing intact bilaterally Eyes: PERRLA, EOMI Nose: nares patent Throat: lymph nodes soft and mobile Mx/Md: occ stable and reproducible, --trismus IOE: [place] moist mucosa with some missing dentition and healing extraction sites with granulation tissue UL and LL . Patient has no pain on palpation and no current pain present introrally. No abscess present IO. Patient does have caries present on some teeth and retained root tips but no active infection present. Tonsils, FOM, tongue, buccal mucosa, palate, vestibules all WNL --FOM ecchymosis, --[place], --CN V3 paresthesia OCS nl Radiographic: Significantly: There is active periodontal disease in the left mandible with periapical lucency and surrounding sclerosis involving the left first molar. There is active periodontal disease in the right maxilla involving the second and third molars and in the left maxilla involving the second and third molars. The left bicuspids have been extracted with recently healing sockets. There is some mild stranding in the left vestibular space and mild thickening of the left buccinator muscle. No discrete fluid collection is identified. Deep soft tissue spaces of the face and neck are unremarkable. The carotid and jugular vessels are patent. There is a dual-lumen catheter in the right jugular vein. The paranasal sinuses and mastoids are clear. IMPRESSION: Diffuse periodontal disease. Question some associated soft tissue swelling in the left vestibular/buccal space. No abscess identified. Correlation with clinical exam required. Assessment/Plan Patient is currently post STEMI and has recovered from her heart block but now presents with 1st degree AV block. Patient has retained root tips in maxillary arch that do required extractions but do not seem to be cause of any pain or sepsis risk. Patient should seek dental care in outpatient setting in regards to removing these deeply carious teeth as they have significant cortical breakthrough. Will discuss with my attending if further care is needed on dental/OMFS standpoint but currently patient is stable in regards to any active dental infections and their affect on her hypotension. Pt informed in general of their oral health and rec a comprehensive exam w/ a general dentist or a specialist when necessary. Pt agrees w/ and understands all discussion. Pt given opportunity for questions. April Gonzalez DMD General Dentistry, PGY-1 Pager #[phone] Attending: Keanu Cleaning DDS [facility] [address] [address] Attending Note: I have discussed the findings on this patient in detail with the dental resident. I have reviewed the clinical data and note above. I agree with the findings and plan of care as outlined by Dr. Gonzalez. Keanu Cleaning DDS L PRESSER L PRESSER [employer] Concierge Physician Weston Daniels 2024-04-02 10:36:03 Reason For Consult Bradycardia History Of Present Illness Layo Ferrer is an elderly female with history of diabetes presented by EMS after being found down and unresponsive by family and determined to be in complete heart block, now s/p placement of temporary pacer and intubated for airway protection in the ED. Per discussion with family, For the last three days she has been vomiting, and "unable to keep anything down." She had no other sympoms in the days proceeding the event. After going to bed the son and heard a loud crash during the middle of the night and found her face down in the bathroom. She was breathing but otherwise unresponsive. She apparently opened her eyes once. EMS was called and she was life flighted to [facility]. No CPR was initiated. Her family is unsure of her PMHx but report she takes insulin and "water pills". They report she has no history of cardiac, kidney, anemia or thyroid problems. They will try and bring her medications when they come to the hospital Trauma workup negative in the ED. In the ED she was found to have complete heart block with a narrow complex escape rhythm at 36, blood pressure was soft with a MAP in the 50s on arterial line. She was transcutaneously paced with concomitant improvement in her heart rate and blood pressure. Currently paced at 80. EP consulted for complete heart block Interval Events -Patient developed paroxysmal atrial fibrillation with rates in the 70s - Patient is now back in sinus rhythm with prolonged TN - Patient also developed hypotension with concern for sepsis with a dental abscess source - Currently undergoing CRRT with net negative goals Past Medical History She has no past medical history on file. Surgical History She has no past surgical history on file. Social History She has no history on file for tobacco use, alcohol use, and drug use. Allergies Patient has no known allergies. Medications No medications prior to admission. Review of Systems Unable to obtain, intubated and sedated Physical Exam Gen: NAD, laying suprine in bed, appears stated age HEENT: Intubated, PERRLA Neck: supple neck, trachea midline CV: nl s1/s2, RRR, no m/r/g Lung: Normal work of breathing, CTAB Abd: Soft, nt/nd, no masses Ext: Moves all extremities equally, 2+ radial pulse, no edema noted Neuro: AOx3, CN II-XII grossly intact Skin: cool, well perfused, no jaundice, non-erythematous Psych:unable to assess Last Recorded Vitals Blood pressure 150/65, pulse 86, temperature 37.1 ?C (98.8 ?F), resp. rate 21, height 1.651 m (5' 5"), weight 85.7 kg (188 lb 15 oz), SpO2 96%. Relevant Results Encounter Date: 03/27/24 ECG 12 lead Result Value Ventricular Rate 86 QRS Duration 76 QT/QTc 390 QTc Calculation 466 R-[place] 23 T-[place] 25 Narrative ACCELERATED JUNCTIONAL RHYTHM LOW QRS VOLTAGE -- CONSIDER PULMONARY DISEASE, PERICARDIAL EFFUSION, OR NORMAL VARIANT INFERIOR INFARCTION , POSSIBLY ACUTE CANNOT RULE OUT ANTEROLATERAL INJURY PATTERN ABNORMAL ECG NO PREVIOUS ECGS AVAILABLE Confirmed by Asad Resendez ([id number]) on 03/31/2024 3:12:43 PM Transthoracic echo (TTE) complete Result Date: 03/31/2024 Left Ventricle: Left ventricle is smaller than normal. Normal wall thickness in the left ventricle. Left ventricular mass is normal. Normal systolic function with an estimated EF of 60 - 65%. Global longitudinal strain is normal. LV GLS is -18.3%. Unable to assess diastolic function in the left ventricle due to mitral annular calcification. Right Ventricle: Right ventricle size is normal. Normal systolic function in the right ventricle. Left Atrium: Left atrium is mildly dilated. Aortic Valve: Aortic valve is trileaflet. Mildly thickened leaflets in the aortic valve. Mildly calcified leaflets in the aortic valve. Mitral Valve: No leaflet thickening in the mitral valve. No leaflet calcification in the mitral valve. Severe posterior mitral annular calcification. Mild mitral regurgitation present. Mild mitral stenosis present. Mean transmitral gradient 7 mmHg at HR 85 bpm Tricuspid Valve: Mild tricuspid regurgitation present. RVSP is 41.00 mmHg. Mild pulmonary hypertension present. RVSP is 41.00 mmHg. Aorta: Normal sized sinus of Valsalva present. Pericardium: No pericardial effusion present. Transthoracic echo (TTE) limited Result Date: 03/31/2024 Left Ventricle: Left ventricle size is normal. Septal thickening in the left ventricle. Left ventricular regional wall motion abnormalities present. See diagram for wall motion findings. Normal systolic function with an estimated EF of 55 - 60%. Right Ventricle: Right ventricle size is normal. Mildly reduced systolic function in the right ventricle. Aortic Valve: Trileaflet aortic valve sclerosis is present. Mildly thickened leaflets in the aortic valve. Mitral Valve: Moderate posterior mitral annular calcification. Tricuspid Valve: Mild tricuspid regurgitation present. Pulmonary hypertension is not present. Pericardium: No pericardial effusion present. Overall normal LV function, though with inferior/posterior and inferoseptal WMA as noted above; remaining rai appear hyperdynamic. Mildly reduced RV function. Transthoracic echo (TTE) complete Result Date: 03/28/2024 Left ventricle is normal in size with mildly reduced global systolic function and an estimated ejection fraction of 45-50%, by the method of discs. Diastolic function is indeterminate. Right ventricle is normal in size and systolic function. Left atrium appears normal in size. Right atrium is normal in size Aortic valve is trileaflet and sclerotic with normal function. There is mild mitral valve stenosis and a heavily calcified annulus. The transvalvular mean gradient is 4 mmHg, at a HR of 90 bpm. and the MV area by continuity eq is 1.5 cm 2. No significant mitral valve regurgitation is observed. Tricuspid valve leaflets are normal. There is trace tricuspid regurgitation. Unable to estimate right ventricular systolic pressure due to an insufficient TR jet. Pulmonic valve appears normal in structure with trace regurgitation. Aortic root is normal in diameter. Inferior vena cava is normal in diameter with >50% respiratory variation in size. No pericardial effusion is seen. No prior study is currently available for comparison. Assessment & Plan Principal Problem: ST elevation myocardial infarction (STEMI) of inferior wall (HCC) Active Problems: Heart block Hyperglycemia due to diabetes mellitus (CMS/HCC) (HCC) On mechanically assisted ventilation (CMS/HCC) (HCC) Fall GUILHERME (acute kidney injury) (HCC) Acute respiratory alkalosis Anemia of chronic disease Toxic metabolic encephalopathy Acute hypoxemic respiratory failure (HCC) Atelectasis Cardiogenic shock (HCC) Severe sepsis (HCC) Shock liver Hyperkalemia Pleural effusion, bilateral Adrenal nodule (HCC) Shock (CMS/HCC) (HCC) Elvis Freeman is an elderly female with history of diabetes presented by EMS after being found down and unresponsive by family and determined to be in complete heart block. Balloon tip pacemaker placed in the ED with good capture and improvement in HR. At time of presentation EKG showed a narrow complex QRS ~80ms regular escape. Presentation concerning for metabolic etiology of complete heart block which has now resolved with first-degree AV block and intermittent junctional rhythm. Patient has also developed paroxysmal atrial fibrillation seen on EKG as well as telemetry. Her stay has been complicated by hypotension likely secondary to sepsis which may be from a odontogenic source. # Post-STEMI high degree AV block -Patient's complete heart block has recovered and now developed prolonged first-degree AV block - Obtain EKG to assess TN interval - LHC revealed mid RCA s/p PCI HARI 03/27 # Paroxysmal atrial fibrillation - Patient is rate controlled as is and not on any medications - [id number] score of at least 4 (hypertension?, Diabetes, female, CAD) - Recommend anticoagulation given her stroke risk - Will defer antiplatelet therapy combination to primary team - Maintain magnesium above 2, potassium above 4. TSH within normal limits Patient was staffed with Dr. Milton. Dung Wells MD Perfusionist Cosigned by Howard Milton MD at 04/07/2024 12:01 AM WHEEL PRESSER L PRESSER L PRESSER L PRESSER Associated attestation - Howard Milton MD - 04/07/2024 12:01 AM WHEEL PRESSER I have seen and examined the patient with Dr. Wells on 04/02/2024. I have reviewed all the clinical information, lab investigation and imaging data. I agree with the above findings, assessment and plan. [facility] 2024-03-30 14:27:02 Reason For Consult Bradycardia History Of Present Illness [employer] is an elderly female with history of diabetes presented by EMS after being found down and unresponsive by family and determined to be in complete heart block, now s/p placement of temporary pacer and intubated for airway protection in the ED. Per discussion with family, For the last three days she has been vomiting, and "unable to keep anything down." She had no other sympoms in the days proceeding the event. After going to bed the son and heard a loud crash during the middle of the night and found her face down in the bathroom. She was breathing but otherwise unresponsive. She apparently opened her eyes once. EMS was called and she was life flighted to [facility]. No CPR was initiated. Her family is unsure of her PMHx but report she takes insulin and "water pills". They report she has no history of cardiac, kidney, anemia or thyroid problems. They will try and bring her medications when they come to the hospital Trauma workup negative in the ED. In the ED she was found to have complete heart block with a narrow complex escape rhythm at 36, blood pressure was soft with a MAP in the 50s on arterial line. She was transcutaneously paced with concomitant improvement in her heart rate and blood pressure. Currently paced at 80. EP consulted for complete heart block Interval Events - Patient no longer in CHB - Patient remains in high degree AV block with junctional escape Past Medical History She has no past medical history on file. Surgical History She has no past surgical history on file. Social History She has no history on file for tobacco use, alcohol use, and drug use. Allergies Patient has no known allergies. Medications No medications prior to admission. Review of Systems Unable to obtain, intubated and sedated Physical Exam Gen: NAD, laying suprine in bed, appears stated age HEENT: Intubated, PERRLA Neck: supple neck, trachea midline CV: nl s1/s2, RRR, no m/r/g Lung: Normal work of breathing, CTAB Abd: Soft, nt/nd, no masses Ext: Moves all extremities equally, 2+ radial pulse, no edema noted Neuro: AOx3, CN II-XII grossly intact Skin: cool, well perfused, no jaundice, non-erythematous Psych:unable to assess Last Recorded Vitals Blood pressure 132/61, pulse 97, temperature 36.7 ?C (98 ?F), temperature source Oral, resp. rate 20, height 1.651 m (5' 5"), weight 85.7 kg (189 lb), SpO2 94%. Relevant Results No results found for this or any previous visit (from the past 4464 hours). Transthoracic echo (TTE) complete Result Date: 03/28/2024 Left ventricle is normal in size with mildly reduced global systolic function and an estimated ejection fraction of 45-50%, by the method of discs. Diastolic function is indeterminate. Right ventricle is normal in size and systolic function. Left atrium appears normal in size. Right atrium is normal in size Aortic valve is trileaflet and sclerotic with normal function. There is mild mitral valve stenosis and a heavily calcified annulus. The transvalvular mean gradient is 4 mmHg, at a HR of 90 bpm. and the MV area by continuity eq is 1.5 cm 2. No significant mitral valve regurgitation is observed. Tricuspid valve leaflets are normal. There is trace tricuspid regurgitation. Unable to estimate right ventricular systolic pressure due to an insufficient TR jet. Pulmonic valve appears normal in structure with trace regurgitation. Aortic root is normal in diameter. Inferior vena cava is normal in diameter with >50% respiratory variation in size. No pericardial effusion is seen. No prior study is currently available for comparison. Assessment & Plan Principal Problem: ST elevation myocardial infarction (STEMI) of inferior wall (HCC) Active Problems: Heart block Hyperglycemia due to diabetes mellitus (CMS/HCC) (HCC) On mechanically assisted ventilation (CMS/HCC) (HCC) Fall GUILHERME (acute kidney injury) (HCC) Acute respiratory alkalosis Anemia of chronic disease Toxic metabolic encephalopathy Acute hypoxemic respiratory failure (HCC) Atelectasis Cardiogenic shock (HCC) Severe sepsis (HCC) Shock liver Hyperkalemia Pleural effusion, bilateral Adrenal nodule (HCC) Elvis Freeman is an elderly female with history of diabetes presented by EMS after being found down and unresponsive by family and determined to be in complete heart block. Balloon tip pacemaker placed in the ED with good capture and improvement in HR. At time of presentation EKG showed a narrow complex QRS ~80ms regular escape. Presentation concerning for metabolic etiology of complete heart block. Symptomatic Bradycardia Post-STEMI high degree AV block - CHB now resolved. Possible AV samaria recovery - Concern for metabolic etiology of complete heart block infx, hypothroid, DKA, myocardial ischemia - LHC revealed mid RCA s/p PCI HARI 03/27 - Will allow 5 days for AV samaria recovery after revascularization Patient was staffed with Dr. Will. Dung Wells MD Perfusionist I personally saw and examined the patient with Dr. Wells on 03-30-24 and agree with the above note and assessment. -[facility] Lobby Concierge Physician Weston Daniels 2024-03-29 13:25:00 Patient coded and was attended by the medical staff. As family returned to the room, electronic sales and service technician offered support to them until they could get an update from the staff. Patient appeared stable as family was invited back into the patient's room. Vasiliy Kay [facility] Subjective Reason For Visit Reason for Visit: Code/Rapid response HVI Research Neuropsychologist [facility] 2024-03-29 12:28:05 Associated Order(s): IP CONSULT TO NEPHROLOGY ME Nephrology Initial Consult Note Reason for consult: Nephrology consulted for: Acute Kidney Injury Requesting Physician/Service: CCU Consulting Physician: SPENCER Nephrology Date of Consultation: 03/29/2024 Admission Diagnosis: Heart block [I45.9] Chief Complaint: Chief Complaint Patient presents with Fall History Obtained From: patient Assessment & Plan: Patient Elvis Freeman is a 63 y.o. female with PMHx significant for has no past medical history on file. who was admitted 03/27/2024 2:14 AM for Heart block [I45.9]. Nephrology consulted for the evaluation and management of GUILHERME. Recommendations: - Will initiate CRRT for clearance, volume goal of net even - Continue strict I/Os - Infectious work-up and management per CCU and PCCM - Follow up iron panel - Send urine electrolytes and osmolality if able to collect urine GUILHERME - Likely ischemic ATN in setting of hemodynamic instability, sepsis and possible underlying chronic kidney disease - Unknown Cr baseline - Cr 2.77 on admission, now up to 5.22 - BUN 41 -> 53 - Renal U/S showed bilateral parenchymal disease - UA on admission: pH 6.0, spec grav 1.018, 500 glucose, >300 protein, small blood, 4 RBC, 6 WBC - Guevara in place, 13cc on bladder scan per RN at bedside - Little to no UOP over the past 24 hours - Pending urine electrolytes - IVC collapsible on TTE 03/27 and bedside POCUS 03/29 Volume status - Some slight signs of volume overload with congestive hepatopathy, pleural effusions, however IVC collapsible on bedside POCUS - Not on diuresis currently - Little to no UOP over the past 24 hours Electrolytes: Hyperphosphatemia - K 4.5, phos 6.3, Ca - No current need for phosphate binder, will CTM Acid-Base - ABG today 7.42 / / / 20 - CO2 19.6 Normocytic anemia - Hgb 6.8 -> 9.7 post-transfusion - Anemia workup pending - Ferritin 107.3 Plans explained to patient, all questions answered. Reza Perkins MD March 29, 2024 12:28 PM History of Present Illness: Ms. Freeman is a 63-year-old female presented by EMS after being found down and unresponsive by family and determined to be in complete heart block. She was found to have STEMI and was taken for PCI to RCA 03/27/24. Patient states she has never seen a ear nose throat surgeon in the past or been told she has kidney disease. She states she has had decreasing urine output since admission but denies any changes prior to that. She has had shortness of breath on and off for months. She denies chest pain, back pain, pain with urination. Guevara was placed on admission, bladder scan earlier showed ~13cc of urine, very little UOP over the last 24 hours. In the afternoon, patient had brief run of asystole during line placement, ROSC achieved after 20-30 seconds of compressions. Patient seen on afternoon rounds sitting at bedside, no acute distress. Patient complains of nausea only at the moment. Review of Systems: 14-point ROS was negative except as indicated in HPI. Past History: History reviewed. No pertinent past medical history. History reviewed. No pertinent surgical history. No family history on file. Social History Tobacco Use Smoking status: Unknown No Known Allergies Outpatient Medications: No medications prior to admission. Inpatient Medications: Scheduled: aspirin, 81 mg, Oral, Daily [Held by provider] atorvastatin, 80 mg, Oral, Daily atropine, , , DOPamine, , , heparin, 5,000 Units, Subcutaneous, q8h meropenem, 500 mg, Intravenous, q12h pantoprazole, 40 mg, Intravenous, q24h DIRK polyethylene glycol (PEG) 3350, 17 g, Oral, Daily sennosides, 2 tablet, Oral, q12h DIRK ticagrelor, 90 mg, Oral, q12h DIRK Infusions: Physical Exam: Vitals: 03/29/24 0500 03/29/24 0600 03/29/24 0755 03/29/24 0800 BP: 109/56 114/54 Pulse: (!) 48 (!) 47 103 Resp: 25 25 24 Temp: 36.3 ?C (97.3 ?F) SpO2: 99% 96% 95% Intake/Output Summary (Last 24 hours) at 03/29/2024 1228 Last data filed at 03/28/2024 1800 Gross per 24 hour Intake -- Output 200 ml Net -200 ml Physical Exam: Constitutional: Appearance: She is ill-appearing. HENT: Head: Normocephalic and atraumatic. Right Ear: External ear normal. Left Ear: External ear normal. Nose: No congestion or rhinorrhea. Mouth/Throat: Pharynx: No oropharyngeal exudate or posterior oropharyngeal erythema. Eyes: General: Right eye: No discharge. Left eye: No discharge. Cardiovascular: Rate and Rhythm: Bradycardia present. Rhythm irregular. Pulses: Normal pulses. Heart sounds: No murmur heard. No gallop. Pulmonary: Effort: Pulmonary effort is normal. No respiratory distress. Breath sounds: No wheezing. Abdominal: General: There is no distension. Tenderness: There is no abdominal tenderness. Musculoskeletal: Right lower leg: No edema. Left lower leg: No edema. Skin: Coloration: Skin is not jaundiced. Findings: No bruising or lesion. Neurological: General: No focal deficit present. Mental Status: She is alert and oriented to person, place, and time. Data: Recent/relevant labs and imaging reviewed in EMR. Lab Results Component Value Date BUN 53 (H) 03/29/2024 Results from last 7 days Lab Units 03/29/24 0127 03/28/24 0159 03/27/24 0837 CREATININE mg/dL 5.22* 3.38* 2.75* Electrolytes: LYTES - Na/K/Cl/CO2: --/4.3/--/-- (03/29 033) Lab Results Component Value Date Calcium Lvl 8.9 03/29/2024 Phosphorus Lvl 6.3 (H) 03/28/2024 Lab Results Component Value Date Hgb 9.7 (L) 03/29/2024 Cosigned by Angel Blue MD at 04/03/2024 5:13 PM WHEEL PRESSER L PRESSER Associated attestation - Angel Blue MD - 04/03/2024 5:13 PM WHEEL PRESSER Nephrology Attending Note: I saw and evaluated this critically ill patient with complex medical problems; including GUILHERME, liekely due to ischemic ATN I examined the patient independently, labs/radiographic data and other providers/staff notes reviewed. I agree with the findings and the plan of care as documented in the Renal Fellow/Resident's note. Spoke with the primary team. Questions answered. Date of Service is 03/29/2024 This result has been reviewed by Angel Blue MD, MD on 04/03/24 at 5:12 PM. [facility] 2024-03-27 14:12:02 Associated Order(s): IP CONSULT TO NUTRITION SERVICES; IP CONSULT TO NUTRITION SERVICES 03/28: TF was never started yesterday. Pt is now extubated. AHA diet ordered. No deficits noted on NFPE NUTRITION ASSESSMENT - ADULT Unit: CCU Reason for RD Encounter: EN Consult Findings Nutrition Diagnosis: Nutrition Diagnosis: Inadequate oral intake related to respiratory distress as evidenced by requiring enteral nutrition for nutrient. * Interventions and Recommendation: 1: ENTERAL NUTRITION: ENTERAL FORMULA: Peptamen AF @ 60mL/hr x22hr infusion time (Provides 1584kcal, 100g PRO) NUTRITION RISK: Moderate, in 5-7 days Next Date for Nutrition Services Follow Up: 04/03/24 Current Nutrition: Orderered Tube Feeds and Supplements Medication Dose Route Frequency Provider Last Rate Last Admin Enteral Free water Flush 30 mL 30 mL Nasogastric q4h Ирина Kennedy NP peptamen AF liquid Nasogastric Continuous Ирина Kennedy NP PO/EN/PN Intakes: No data found. Nutrition Visit Information: 03/27: Intubated. +OGT. 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 Anthropometrics: Height: 165.1 cm (5' 5") Height Method: Stated Weight: Weight Method: Bed scale 85.9kg Body mass index is 31.51 kg/m?. [place] body weight: 57 kg (125 lb 10.6 oz) Adjusted ideal body weight: 68.6 kg (151 lb 2.4 oz) Wt Readings from Last 10 Encounters: 03/27/24 85.9 kg (189 lb 6 oz) Estimated Nutrition Needs: Weight Used for Equation Calculations: 56 kg (123 lb 7.3 oz) (IBW) Calculated Energy Needs Using Equations Height: 1.651 m (5' 5") Weight Used for Equation Calculations: 56 kg (123 lb 7.3 oz) (IBW) Energy Equation Used: Rule of thumb (kcal/kg) Energy Lower Range: 25 (kcal/kg) Energy Upper Range: 30 (kcal/day) Energy Needs Lower Range: 1400 kcal/day (kcal/day) Energy Needs Upper Range: 1680 kcal/day [place] Equation (Critically Ill Patients): 145 Minute Ventilation (L/min): 7.9 L/min Temp: 37.1 ?C (98.8 ?F) Estimated Protein Needs (g/kg) Protein Lower Range: 1.2 (g/kg) Protein Upper Range: 1.5 (g/day) Protein Lower Range: 67 g/day (g/day) Protein Upper Range: 84 g/day Fluid Needs Fluid Needs Method: Or per MD; mL/kg/day (mL/kg) Fluid Needs: 25 (mL/day) Fluid Needs (Calculated): 2147 mL/kg/day Nutrition Physical Findings per sales & service associate: Orientation Level: Unable to assess O2 Delivery Method: Endotracheal tube Gastrointestinal (WDL): WDL RUE: Unable to assess Gastric Tube 03/27/24 Orogastric 16 Fr Right mouth (Active) Nutrition Focused Physical Exam - Muscles and Fat: PENDING Basic Information: Admitting diagnosis: Heart block [I45.9] Clinical course: Principal Problem: Heart block Active Problems: Hyperglycemia due to diabetes mellitus (CMS/HCC) (HCC) On mechanically assisted ventilation (CMS/HCC) (HCC) Fall GUILHERME (acute kidney injury) (HCC) Acute respiratory alkalosis Anemia of chronic disease Toxic metabolic encephalopathy Acute hypoxemic respiratory failure (HCC) Atelectasis Cardiogenic shock (HCC) Severe sepsis (HCC) Shock liver Hyperkalemia Pleural effusion, bilateral Medications: artificial tears, 1 Application, Both Eyes, q6h DIRK cefepime, 1 g, Intravenous, q12h chlorhexidine, 15 mL, Swish & Spit, 4x daily Enteral Free water Flush, 30 mL, Nasogastric, q4h EPINEPHrine in dextrose 5 %, , , heparin, 5,000 Units, Subcutaneous, q8h pantoprazole, 40 mg, Intravenous, q24h DIRK sennosides, 1 tablet, Oral, Nightly peptamen AF, PRN medications: chlorhexidine, dextrose, dextrose, EPINEPHrine in dextrose 5 %, fentaNYL, glucagon, insulin lispro, [COMPLETED] Insert peripheral IV AND [COMPLETED] Saline lock IV AND sodium chloride, [COMPLETED] Insert peripheral IV AND [COMPLETED] Saline lock IV AND sodium chloride, sodium chloride Labs: Pertinent Labs : Labs in chart were reviewed. No results found for: "HGBA1C" Review / Management: I/O 24 HRS: Intake/Output Summary (Last 24 hours) at 03/27/2024 1412 Last data filed at 03/27/2024 1159 Gross per 24 hour Intake 5 ml Output 400 ml Net -395 ml Monitoring and Evaluation: MONITORING AND EVALUATION: Nutrition Intake : EN intake and tolerance GOAL: Initiate nutrition: Katelyn Mak MPH RD LD Tuesday-Tuesday pager [phone] Weekend/Oncall pager [phone] Weston Daniels 2024-03-27 13:54:02 Reason For Consult Bradycardia History Of Present Illness Layo Ferrer is an elderly female with history of diabetes presented by EMS after being found down and unresponsive by family and determined to be in complete heart block, now s/p placement of temporary pacer and intubated for airway protection in the ED. Per discussion with family, For the last three days she has been vomiting, and "unable to keep anything down." She had no other sympoms in the days proceeding the event. After going to bed the son and heard a loud crash during the middle of the night and found her face down in the bathroom. She was breathing but otherwise unresponsive. She apparently opened her eyes once. EMS was called and she was life flighted to [facility]. No CPR was initiated. Her family is unsure of her PMHx but report she takes insulin and "water pills". They report she has no history of cardiac, kidney, anemia or thyroid problems. They will try and bring her medications when they come to the hospital Trauma workup negative in the ED. In the ED she was found to have complete heart block with a narrow complex escape rhythm at 36, blood pressure was soft with a MAP in the 50s on arterial line. She was transcutaneously paced with concomitant improvement in her heart rate and blood pressure. Currently paced at 80. EP consulted for complete heart block Past Medical History She has no past medical history on file. Surgical History She has no past surgical history on file. Social History She has no history on file for tobacco use, alcohol use, and drug use. Allergies Patient has no known allergies. Medications No medications prior to admission. Review of Systems Unable to obtain, intubated and sedated Physical Exam Gen: NAD, laying suprine in bed, appears stated age HEENT: Intubated, PERRLA Neck: supple neck, trachea midline CV: nl s1/s2, RRR, no m/r/g Lung: Normal work of breathing, CTAB Abd: Soft, nt/nd, no masses Ext: Moves all extremities equally, 2+ radial pulse, no edema noted Neuro: AOx3, CN II-XII grossly intact Skin: cool, well perfused, no jaundice, non-erythematous Psych:unable to assess Last Recorded Vitals Blood pressure 128/61, pulse 80, temperature 37.1 ?C (98.8 ?F), resp. rate 23, height 1.651 m (5' 5"), weight 85.9 kg (189 lb 6 oz), SpO2 98%. Relevant Results No results found for this or any previous visit (from the past 4464 hours). No echocardiogram results found for the past 12 months Assessment & Plan Principal Problem: Heart block Active Problems: Hyperglycemia due to diabetes mellitus (CMS/HCC) (HCC) On mechanically assisted ventilation (CMS/HCC) (HCC) Fall GUILHERME (acute kidney injury) (HCC) Acute respiratory alkalosis Anemia of chronic disease Toxic metabolic encephalopathy Acute hypoxemic respiratory failure (HCC) Atelectasis Cardiogenic shock (HCC) Severe sepsis (HCC) Shock liver Hyperkalemia Pleural effusion, bilateral Adrenal nodule (HCC) Layo Ferrer is an elderly female with history of diabetes presented by EMS after being found down and unresponsive by family and determined to be in complete heart block. Balloon tip pacemaker placed in the ED with good capture and improvement in HR. At time of presentation EKG showed a narrow complex QRS ~80ms regular escape. Presentation concerning for metabolic etiology of complete heart block. Complete heart block Symptomatic Bradycardia - Currently temporarily paced with balloon-tip catheter - HR 80; underlying 36 bpm CHB with QRS 80ms - Concern for metabolic etiology of complete heart block infx, hypothroid, DKA, myocardial ischemia - Pending echo, LHC, blood culture, TSH - Once workup is complete will discuss device implantation I personally saw and examined the patient with Dr. Lobo on 03-27-24 and agree with the above note and assessment. [facility] Jeronimo 2024-03-27 11:32:02 Consults PCCM History Of Present Illness Elvis Freeman ( 1960) is a 64 year old female who was brought in by EMS after being found down and unresponsive by family and determined to be in complete heart block, now s/p placement of temporary pacer and intubated for airway protection. No family is available in person or by phone at time of consult so little is known about the patient's medical history. Trauma samson scan in the ED was negative for acute abnormality. UDS also negative. On arrival to CCU patient is intubated and sedated on Fentanyl drip at 200 mcg/hr and Versed drip at 6mg/hr Past Medical History She has no past medical history on file. Surgical History She has no past surgical history on file. Social History She has no history on file for tobacco use, alcohol use, and drug use. Family History No family history on file. Allergies Patient has no known allergies. Medications No medications prior to admission. Review of Systems Reason unable to perform ROS: Unable to assess 2/2 clinical condition. Physical Exam: Constitutional: Appearance: Normal appearance. Comments: Mechanically ventilated and sedated Eyes: Pupils: Pupils are equal, round, and reactive to light. Cardiovascular: Rate and Rhythm: Normal rate and regular rhythm. Pulses: Normal pulses. Heart sounds: Normal heart sounds. Comments: Paced at 80 via right internal jugular temporary pacer Pulmonary: Effort: Pulmonary effort is normal. No respiratory distress. Breath sounds: Normal breath sounds. Abdominal: General: Bowel sounds are normal. There is no distension. Palpations: Abdomen is soft. Tenderness: There is no abdominal tenderness. Skin: General: Skin is warm and dry. Capillary Refill: Capillary refill takes less than 2 seconds. Comments: Stage 1 ulcer to sacrum Neurological: Comments: Sedated. + gag Last Recorded Vitals Blood pressure 108/66, pulse 80, temperature (!) 35.9 ?C (96.6 ?F), resp. rate 18, height 1.651 m (5' 5"), weight 85.9 kg (189 lb 6 oz), SpO2 97%. Assessment & Plan Heart block Hyperglycemia due to diabetes mellitus (CMS/HCC) (HCC) On mechanically assisted ventilation (CMS/HCC) (HCC) Fall GUILHERME (acute kidney injury) (HCC) Acute respiratory alkalosis Anemia Plan: Neuro/Psych: -Turn off sedation. Assess mental status. Now that hemodynamics are improved will proceed with vent weaning if patient is neurologically intact -CT brain showing no acute abnormality. CT cervical spine also showing no fracture or traumatic malalignment -Pain control with Tylenol PRN -Continue delirium precautions and adherence to sleep-wake cycle. CV: -s/p temp pacer. EP to evaluate for need for permanent pacemaker -Ischemic evaluation?? -Need ECHO Resp: -Continue on AC ventilation. Adjusted minute ventilation based on ABG. If patient wakes up off sedation will attempt vent weaning -CT chest showing no acute abnormalities with trace pleural effusions, atelectasis -Duonebs prn -Continue volume expansion protocol and incentive spirometry GI/Nutrition: -NPO. Nutrition consult for initiation of tube feeds -Advance tube feeds to goal and monitor for tolerance -Protonix ppx -Continue bowel regimen and titrate for 1-2 BMs daily -CT abdomen and pelvis showing no acute traumatic abnormalities and heterogeneous left adrenal nodule measuring 3.2 cm Renal/Electrolytes: -GUILHERME could be 2/2 ischemia in the setting of CHB -Monitor UOP with strict I's/O's -Trend BUN/Cr -Avoid nephrotoxic agents -Replace electrolytes as needed Endo: -Pending Hgb A1c -Continue strict glycemic control with sliding scale insulin to keep blood glucose 100-180 -If blood glucose does not get controlled with SSI will escalate to Insulin drip Heme/Onc: -Monitor for bleeding and coagulopathies -Maintain Hgb > 7 and Platelets > 10k ID: -Found down. Possible aspiration. Started on empiric Vancomycin and Cefepime day 1 -Procal mildly elevated. Cultures pending Musculoskeletal/Skin: -Continue wound care and sacral decubitus prevention -PT/OT and out of be to chair daily Prophylaxis: -DVT ppx: Heparin -PUD ppx: Protonix Vascular/ access: Peripheral IV 03/27/24 Right Antecubital (Active) Peripheral IV 03/27/24 Anterior;Left Wrist (Active) Arterial Line 03/27/24 Right Radial (Active) Urethral Catheter Temperature probe 16 Fr. (Active) Gastric Tube 03/27/24 Orogastric 16 Fr Right mouth (Active) Compliance: Restraints: Needed for pulling at lines and not redirectable Indwelling Guevara Catheter: Required for acute output, retention Central Venous Access: None Arterial Access: Arterial line required for strict hemodynamic monitoring / Frequent ABGs Code Status: Full Disposition: CCU I spent a total of 35 minutes of critical care time with this patient independently, not including procedure time, then plan was discussed with [facility] Attending Dr. Enrique Kennedy, MSN, AGACNP- MSO #[id number] Division of Pulmonary Critical Care Medicine [facility] / [facility] [email or web address] Cosigned by Kyle Nunez MD at 03/27/2024 1:30 PM CDT Associated attestation - Kyle Nunez MD - 03/27/2024 1:30 PM CDT I have reviewed the note written by MERA murphy and agree with the exam, assessment and plan documented in the chart except if stated below otherwise. I have seen, personally examined, and discussed the patient with the team. I have also personally reviewed the labs and diagnostic imaging. Below are any modifications or additions. This patient is critically ill due to presenting with an illness that impairs one or more vital organ systems. There was a high probability of imminent or life threatening deterioration in the patient's condition and continued critical care was required to prevent further deterioration. I spent a cumulative [45] minutes of non-concurrent critical care time directly related to this individual patient's care involving the evaluation, coordination, and management of the patient. This includes only time spent at the immediate bedside or elsewhere on the patient's floor or unit and is not inclusive of any time spent performing invasive procedures. ASSESSMENT/PLAN: Principal Problem: Heart block Active Problems: Hyperglycemia due to diabetes mellitus (CMS/HCC) (HCC) On mechanically assisted ventilation (CMS/HCC) (HCC) Fall GUILHERME (acute kidney injury) (HCC) Acute respiratory alkalosis Anemia of chronic disease Toxic metabolic encephalopathy Acute hypoxemic respiratory failure (HCC) Atelectasis Cardiogenic shock (HCC) Severe sepsis (HCC) Shock liver Hyperkalemia Pleural effusion, bilateral Patient Active Problem List Diagnosis Heart block Hyperglycemia due to diabetes mellitus (CMS/HCC) (HCC) On mechanically assisted ventilation (CMS/HCC) (HCC) Fall GUILHERME (acute kidney injury) (HCC) Acute respiratory alkalosis Anemia of chronic disease Toxic metabolic encephalopathy Acute hypoxemic respiratory failure (HCC) Atelectasis Cardiogenic shock (HCC) Severe sepsis (HCC) Shock liver Hyperkalemia Pleural effusion, bilateral Neuro/Psych: Sedation holiday, assess underlying neurologic status. GCS 3 on arrival. CV: Cardiogenic shock - s/p transvenous pacer. Pending EP further mgmt. Resp: Continue ventilator management. LTVV. GI/Nutrition: Initiate tube feeds. Bowel regimen. No diet orders on file No data recorded Renal/Electrolytes: Monitor UOP. Replete electrolytes per ICU protocol. Endo: Continue SSI to Maintain fingersticks <180. Adrenal nodule follow up as outpatient. Heme/Onc:Monitor counts. ID: Continue empiric/current therapy pending Cx Msk/Skin/Deconditioned: -Continue PT/OT.[-Continue wound care and sacral decubitus prevention]. Prophylaxis: -DVT ppx: [Heparin]. -GI ppx: [continue PPI]. Tubes/Lines/Drains: [-Continue Guevara and will remove when appropriate.] -Continue current lines for IV access, hemodynamic monitoring, and resuscitation. Code status: No Order Jaymie Nunez MD Sound Art Instructor Pulmonary, Critical Care, and Sleep Medicine [facility] History and Physical Notes Date/Time Note Provider Source 2024-03-27 12:31:47 CCU History and Physical CCU Day: 0 Problem List Principal Problem: Heart block Active Problems: Hyperglycemia due to diabetes mellitus (CMS/HCC) (HCC) On mechanically assisted ventilation (CMS/HCC) (HCC) Fall GUILHERME (acute kidney injury) (HCC) Acute respiratory alkalosis Anemia ASSESSMENT and PLAN Layo Ferrer is a 89 y.o. female presented by EMS after being found down and unresponsive by family and determined to be in complete heart block, now s/p placement of temporary pacer and intubated for airway protection in the ED. No family is available in person, but and son were able to be talked to via phone for collateral information. For the last three days she has been vomiting, and "unable to keep anything down." She had no other sympoms in the days proceeding the event. After going to bed the son and heard a loud crash during the middle of the night and found her face down in the bathroom. She was breathing but otherwise unresponsive. She apparently opened her eyes once. EMS was called and she was life flighted to [facility]. No CPR was initiated. Her family is unsure of her PMHx but report she takes insulin and "water pills". They report she has no history of cardiac, kidney, anemia or thyroid problems. They will try and bring her medications when they come to the hospital Trauma workup negative in the ED. In the ED she was found to have complete heart block with a narrow complex escape rhythm at 36, blood pressure was soft with a MAP in the 50s on arterial line. She was transcutaneously paced with concomitant improvement in her heart rate and blood pressure. Currently paced at 80. Neurology: - Pain control: Tyelenol prn - Sedation: Versed gtt 6mg/hr. Fentany gtt 200 mcg/hr - Fall precautions - CT head negative. Cardiovascular: - s/p temp pacer in ED - EP to evaluate for permanent pacemaker - EKG now paced - troponin initially 1846 > 2205 > 8000 - home medications: lisinopril? Indapamide? - MAPs stable now - Plan - LHC today - pending echo Volume Status: Intake/Output Summary (Last 24 hours) at 03/27/2024 1239 Last data filed at 03/27/2024 1159 Gross per 24 hour Intake 5 ml Output 400 ml Net -395 ml Respiratory: - Ventilator day 1 (03/27) - Vent settings AC ventilation - Aspiration precautions Gastroenterology: - Nutrition - PUD ppx - BM Renal: - Cr 2.75, unknown baseline - prerenal? Vomiting for 3 days - monitor UOP Infectious Disease: - Microbiology results - Antibiotics (start date) day# - Tmax, leukocytosis Hematology: #Anemia - family reports no hx - Hb 8.0, no obvious source of bleeding - Will transfuse to keep Hgb >7.0 Endocrinology: - on home insulin +/- metformin - Goal BS: 140-180 - glucose checks q4 - A1c pending - TSH pending DVT PPX: Heparin SubQ PUD PPX : Protonix Diet: NPO PT/OT indicated: no Lines: ET tube, day 1 Guevara: day 1 Code status: FULL Dispo: pending clinical stablility Contact: see separate note for contact info Patient seen and staffed with attending physician, MD Jayla Stauffer MD Internal Medicine, PGY-1 [facility] | [facility] History of Present Illness Layo Ferrer is a 89 y.o. female presented by EMS after being found down and unresponsive by family and determined to be in complete heart block, now s/p placement of temporary pacer and intubated for airway protection in the ED. No family is available in person, but and son were able to be talked to via phone for collateral information. For the last three days she has been vomiting, and "unable to keep anything down." She had no other sympoms in the days proceeding the event. After going to bed the son and heard a loud crash during the middle of the night and found her face down in the bathroom. She was breathing but otherwise unresponsive. She apparently opened her eyes once. EMS was called and she was life flighted to [facility]. No CPR was initiated. Her family is unsure of her PMHx but report she takes insulin and "water pills". They report she has no history of cardiac, kidney, anemia or thyroid problems. They will try and bring her medications when they come to the hospital Trauma workup negative in the ED. In the ED she was found to have complete heart block with a narrow complex escape rhythm at 36, blood pressure was soft with a MAP in the 50s on arterial line. She was transcutaneously paced with concomitant improvement in her heart rate and blood pressure. Currently paced at 80. PMH: History reviewed. No pertinent past medical history. PSH: History reviewed. No pertinent surgical history. FH: No family history on file. SH: Social History Tobacco Use Smoking Status Unknown Smokeless Tobacco Not on file Social History Substance and Sexual Activity Alcohol Use None Social History Substance and Sexual Activity Drug Use Not on file ALLERGIES: Patient has no known allergies. PRIOR TO ADMISSION MEDS: No current facility-administered medications on file prior to encounter. No current outpatient medications on file prior to encounter. ROS: General: See HPI, unable to obtain due to pt sedated and intubated. Vital Signs Current: Temp (24hrs), Av.8 ?C (96.4 ?F), Min:35.4 ?C (95.7 ?F), Max:36.6 ?C (97.9 ?F) BP 108/66 | Pulse 80 | Temp 36.6 ?C (97.9 ?F) | Resp 12 | Ht 1.651 m (5' 5") | Wt 85.9 kg (189 lb 6 oz) | SpO2 99% | BMI 31.51 kg/m? on 24 Hour: Systolic (24hrs), Av , Min:83 , Max:171 Diastolic (24hrs), Av, Min:55, Max:79 BP Min: 83/56 Max: 171/79 Temp Min: 35.4 ?C (95.7 ?F) Max: 36.6 ?C (97.9 ?F) Pulse Min: 39 Max: 80 Resp Min: 12 Max: 70 SpO2 Min: 61 % Max: 100 % Height Min: 165.1 cm (5' 5") Max: 165.1 cm (5' 5") Weight Min: 85.9 kg (189 lb 6 oz) Max: 85.9 kg (189 lb 6 oz) could not be evaluated. This SmartLink does not work with rows of the type: Intake/Output: I/O last 3 completed shifts: In: 5 (0.1 mL/kg) [IV Piggyback:5] Out: 0 (0 mL/kg) Weight: 85.9 kg Intake/Output Summary (Last 24 hours) at 03/27/2024 1239 Last data filed at 03/27/2024 1159 Gross per 24 hour Intake 5 ml Output 400 ml Net -395 ml PHYSICAL EXAM Gen: NAD, laying suprine in bed, appears stated age HEENT: Intubated, PERRLA Neck: supple neck, trachea midline CV: nl s1/s2, RRR, no m/r/g Lung: Normal work of breathing, CTAB Abd: Soft, nt/nd, no masses Ext: Moves all extremities equally, 2+ radial pulse, no edema noted Neuro: AOx3, CN II-XII grossly intact Skin: warm, well perfused, no jaundice, non-erythematous Psych: Appropriate mood and congruent affect SCHEDULED HOSPITAL MEDICATIONS artificial tears, 1 Application, Both Eyes, q6h DIRK cefepime, 1 g, Intravenous, q12h chlorhexidine, 15 mL, Swish & Spit, 4x daily EPINEPHrine in dextrose 5 %, , , heparin, 5,000 Units, Subcutaneous, q8h pantoprazole, 40 mg, Intravenous, q24h DIRK sennosides, 1 tablet, Oral, Nightly PRN Medications: PRN medications: chlorhexidine, dextrose, dextrose, EPINEPHrine in dextrose 5 %, fentaNYL, glucagon, insulin lispro, [COMPLETED] Insert peripheral IV AND [COMPLETED] Saline lock IV AND sodium chloride, [COMPLETED] Insert peripheral IV AND [COMPLETED] Saline lock IV AND sodium chloride, sodium chloride Drips: LABS Recent Labs 03/27/24219 WBC 16.30* HGB 8.0* MCV 88.6 Recent Labs 03/27/2421903/27/24 0317 03/27/24 0420 03/27/24 0837 03/27/24 1117 NA 138 -- 136 137 136 K 4.3 < > 4.8* 4.4 4.8 CL 104 -- 104 105 106 CO2 19.5* -- 21.8 22.6 -- BUN 41* -- -- 45* -- PHOS -- -- -- 3.7 -- < > = values in this interval not displayed. Recent Labs 03/27/24312 AST 262* ALT 166* Recent Labs 03/27/248 INR 1.20* PT 15.5* PTT 30.1 No results for input(s): "AHCO3", "XAVIER" in the last 72 hours. No lab exists for component: "APH", "APCO2", "APO2" No lab exists for component: "POCGLU" Intake/Output Summary (Last 24 hours) at 03/27/2024 1239 Last data filed at 03/27/2024 1159 Gross per 24 hour Intake 5 ml Output 400 ml Net -395 ml Radiology Review: Trauma CT BRAIN WO IV CONTRAST Final Result * No acute intracranial hemorrhage. This report was dictated by a Mobile Engineer/Fellow/KENYON: Sally Bobby RES, MD 03/27/2024 4:40 I have personally reviewed the images as well as the interpretation and agree with the findings. Dictation Date/time: 03/27/2024 4:39 Electronically Signed by: Dexter Cornell MD 03/27/2024 7:[address] CERVICAL SPINE WO IV CONTRAST Final Result 1. No acute fracture or traumatic malalignment of the cervical spine. 2. Multilevel facet hypertrophy and ligamentum flavum thickening/calcifications. This report was dictated by a Mobile Engineer/Fellow/KENYON: Sally Bobby RES, MD 03/27/2024 4:44 I have personally reviewed the images as well as the interpretation and agree with the findings. Dictation Date/time: 03/27/2024 4:40 Electronically Signed by: Clark Alford MD 03/27/2024 5:[address] CHEST ABDOMEN PELVIS W IV CONTRAST Final Result Addendum (preliminary) 1 of 1 Impression #5. Hepatomegaly Final 1. No acute traumatic abnormality. 2. Trace pleural effusions. 3. Bilateral dependent atelectasis with partial atelectasis of lower lobes. 4. Heterogeneous left adrenal nodule measuring 3.2 cm. Recommend nonemergent adrenal protocol CT/MRI for further evaluation. This report was dictated by a Mobile Engineer/Fellow/KENYON: Kyle Armstrong RES 03/27/2024 4:54 I have personally reviewed the images as well as the interpretation and agree with the findings. Dictation Date/time: 03/27/2024 4:40 Electronically Signed by: Clark Alford MD 03/27/2024 5:56 XR abdomen 1 view Final Result 1. Lower end of enteric tube is visualized with its sideport beyond the gastroesophageal junction and its distal tip projecting over the gastric fundus 2. Nonobstructive bowel gas pattern to the extent visualized 3. Right upper quadrant surgical clips XR chest 1 view Final Result 1. No acute abnormality. XR chest 1 view Final Result 1. Low lung volumes with diffuse bilateral pulmonary interstitial and right basilar alveolar opacities concerning for pulmonary edema. 2. Cardiomegaly and tortuous aorta with aortic arch calcifications. This report was dictated by a Mobile Engineer/Fellow/KENYON: Sally Bobby RES, MD 03/27/2024 4:59 I have personally reviewed the images as well as the interpretation and agree with the findings. Dictation Date/time: 03/27/2024 4:57 Electronically Signed by: Clark Alford MD 03/27/2024 6:59 Transthoracic echo (TTE) complete (Results Pending) Cosigned by Yakov Cuadra MD at 03/27/2024 6:51 PM CDT Associated attestation - Yakov Cuadra MD - 03/27/2024 6:51 PM CDT The patient was seen and examined with the resident. The relevant lab results, imaging and EKGs were personally reviewed, and the medications were reconciled. I agree with above mentioned assessment and plan. Total amount of critical care time spent throughout the day excluding procedural time was - 35 minutes. The patient remain critically ill, and requires ICU level of care. Patient Active Problem List Diagnosis Date Noted Heart block 03/27/2024 Hyperglycemia due to diabetes mellitus ([facility]/HCC) ([facility] 03/27/2024 On mechanically assisted ventilation ([facility]/HCC) ([facility]) 03/27/2024 Fall 03/27/2024 GUILHERME (acute kidney injury) ([facility]) 03/27/2024 Acute respiratory alkalosis 03/27/2024 Anemia of chronic disease 03/27/2024 Toxic metabolic encephalopathy 03/27/2024 Acute hypoxemic respiratory failure ([facility]) 03/27/2024 Atelectasis 03/27/2024 Cardiogenic shock ([facility]) 03/27/2024 Severe sepsis ([facility]) 03/27/2024 Shock liver 03/27/2024 Hyperkalemia 03/27/2024 Pleural effusion, bilateral 03/27/2024 Adrenal nodule ([facility]) 03/27/2024 [facility] Procedure Notes Date/Time Note Provider Source 2024-04-06 15:00:00 IntraOp Preprocedure Date/ Time: 04/06/2024 1500 Patient Arrival: Station: Location: Angio 1 , Arrival Time: 04/06/2024 1440 Arrival Mode: Bed, Siderails Up. Time Out: Correct patient, Correct procedure, Correct site and side, and Patient consented Performed by: Inder Brice MD IR Fellow Supervised by: Grant Salazar MD IR Attending Report received by: Nurse: Neisha Michael RN. Anesthesia Team: N/A Radiology techs: Leeroy Murdock RTR, Liat Collins RTR Informed consent: Obtained from Patient Procedure: Image guided tunneled dialysis catheter placement Indication: End stage renal disease Interventional Radiology Procedure Anesthesia Local, Moderate Sedation Medications See eMAR. Preparation and technique X-ray obtained prior to procedure. Medications prior to procedure: as recorded on the MAR, See anes records. Sterile preparation of site: solution allowed to passively dry, drapes used to expose affected area, full drapes, gown, gloves, and mask used, in usual fashion, 2% chlorhexidine glconate, and 70% alcohol Position: lying supine Monitoring during procedure: hospital monitor, continuous pulse oximetry, blood pressure, and EtCO2 Time Procedure start time: 04/06/2024 1528 Device inserted Reference number: [id number] Lot number: [id number] Product name: [employer] Long-Term Dialysis Catheter Log Haul Operator: Bard Size: 14.5 Fr Dressing applied Central line dressing Post Interventional Radiology Procedure Procedure end time: 04/06/2024 1544 Procedure tolerated: Well Estimated blood loss: none Complications: There were no complications Patient transported back to patient's room via patient's bed, and on patient's monitor. Patient accompanied by this RN, and perq's transport. Patient in no distress during transport. Handoff report given to LEONARD Larkin CCU 417 RN. Upon dropoff, patient exhibited minor bleeding where mitch catheter was taken out, minor bleeding also shown at surgical site. Occurrence reported to LEONARD Patten CCU RN. [facility] 2024-03-31 05:15:15 Associated Order(s): Arterial line insertion () Post-Procedure Diagnose(s): Severe sepsis (HCC) Arterial line insertion () Date/Time: 03/31/2024 5:15 AM Performed by: Doug Hale MD Authorized by: Doug Hale MD Consent: Consent obtained: Written and verbal Risks, benefits, and alternatives were discussed: yes Risks discussed: Bleeding, pain and infection N[place]isa protocol: Procedure explained and questions answered to patient or proxy's satisfaction: yes Relevant documents present and verified: yes Test results available: yes Imaging studies available: yes Required blood products, implants, devices, and special equipment available: yes Immediately prior to procedure, a time out was called: yes Patient identity confirmed: Verbally with patient and arm band Indications: Indications: hemodynamic monitoring Pre-procedure details: Skin preparation: Chlorhexidine Sedation: Sedation type: None Anesthesia: Anesthesia method: Local infiltration Local anesthetic: Lidocaine 1% WITH epi Procedure details: Location: Left radial Placement technique: Ultrasound guided Number of attempts: 1 Transducer: waveform confirmed Successful placement: yes Post-procedure details: Post-procedure: Secured with tape, sutured and sterile dressing applied CMS: Normal Procedure completion: Tolerated [facility] 2024-03-29 14:25:53 Pre-Procedure Diagnose(s): Acute renal failure with acute tubular necrosis superimposed on chronic kidney disease, unspecified CKD stage (CMS/HCC) (HCC) Post-Procedure Diagnose(s): Acute renal failure with acute tubular necrosis superimposed on chronic kidney disease, unspecified CKD stage (CMS/HCC) (HCC) Pulmonary Critical Care Procedure Note Non- Tunneled Hemodialysis Catheter Placement 03/29/24 2:27 PM Indications: Acute renal failure Consent: Informed consent was obtained for the procedure, including sedation. Risks of lung perforation, hemorrhage, arrhythmia, and adverse drug reaction were discussed. Time Out: Patient id, correct procedure, side, site, safety procedures followed Performed By: Self and FISH PROCESSING SUPERVISOR student Britney Paul Supervised By: Jessa Torres Preparation: Sterile technique was used including CHG preparation, sterile towels, drapes, and surgical gown/gloves Anesthesia: local, 1% xylocaine. Technique: catheter type (13 Fr, total catheter length 15 cm, 3 lumen catheter), location (right, internal jugular, 1 attempts), location confirmed via flashback, Seldinger method, catheter secured with suture, catheter flushed with saline, dressing applied, occlusive transparent Monitoring during procedure: Blood pressure, Cardiac, Continuous pulse oximetry Findings: Catheter was flushed with 10 cc NS. Patient did not tolerate procedure well. During advancement of wire patient went into asystole. Approximately 20 seconds of CPR performed and patient woke up. Did not require intubation. Mentation preserved. Baseline rhythm of 2nd degree heart block achieved. Vitals stable after arrest. The procedure was then completed with successful placement of Right internal jugular Mitch. EP notified as well as primary attending Dr[facility] Cuadra[facility], and family. Placement verified with CXR Complications: Cardiac arrest, resolved to baseline Ammon Kennedy [facility] Pulmonary Critical Care Cosigned by Jessa Torres MD at 03/29/2024 7:13 PM CDT [facility] Notes Date/Time Note Provider Source 2024-08-22 11:34:26 Patient discharged to home. Patient given printed and verbal discharge instructions regarding diagnosis. Instructed to follow up with PCP. Patient verbalized understanding of instructions. Patient awake, alert, oriented, respirations even and unlabored, skin warm and dry, color appropriate for race. No adverse reaction to meds given in ER noted upon discharge. PIV removed. Discussed medications. Advised to seek medical attention for new/prolonged/worsening of symptoms, patient ambulated from unit with steady gait in no apparent distress. Arturo Gomez RN [facility] 2024-08-22 09:38:10 Pt states she had dialysis yesterday, and now she is having left lower back and abdominal pain with nausea since 3am today. Pt using biofreeze with no relief, denies dysuria. Ryanne Earl RN [facility] 2024-06-16 09:53:00 [id number] [place] [address] PATIENT NAME: ELVIS FREEMAN ADMIT DATE: 06/05/24 ACCOUNT NO: [id number] ROOM NO: [facility]04 AGE: 64 REPORT TYPE: DISCHARGE SUMMARY SEX: F ADMITTING PHYSICIAN:Concepcion Tierney MD ATTENDING PHYSICIAN:oCncepcion Tierney MD ADMISSION DATE: 06/05/2024 08:30:00 DISCHARGE DATE: 06/06/2024 15:10:00 FINAL DIAGNOSES: 1. Acute on chronic systolic heart failure. 2. Atrial fibrillation. 3. End-stage renal disease. 4. Coronary artery disease status post percutaneous coronary intervention. 5. Anemia of chronic kidney disease. 6. Hypertension. 7. Hyperlipidemia. MEDICATIONS AT DISCHARGE: Per JUL. DISPOSITION: To home. CONDITION ON DISCHARGE: Stable. LEVEL OF CARE: Full code. DIET: Renal. ACTIVITY: As tolerated. CONSULTANTS: Jaime Medina. 2. Dr. Vanessa. PROCEDURE: None. COMPLICATIONS: None. INSTRUCTIONS: Instructions given to the patient, compliance with medications and outpatient followup stressed with her. Followup care with Dr. Medina in 1 week. Level of care, full code. COURSE OF HOSPITALIZATION: The patient was hospitalized, seen by Nephrology, Cardiology. The patient was volume overloaded. The patient tolerated hemodialysis. Course of the hospitalization was uneventful. The patient was awake and alert. The patient was seen and cared by Nephrology and discharged with outpatient followup. Dictated By: Concepcion Tierney MD PATIENT NAME: ELVIS FREEMAN Date Dictated: 06/16/2024 09:53:16 Date Transcribed: 06/16/2024 18:23:38 AMY/OBDULIO/DEBRA Receipt ID: [id number] Authenticated and Edited by Concepcion Tierney MD On 06/17/24 5:58:43 AM at 0601 PATIENT NAME: ELVIS FREEMAN [facility] 2024-06-13 03:52:00 [id number] [facility] [address] [place] [address] [place] [address] PATIENT NAME: ELVIS FREEMAN ADMIT DATE: 06/05/24 ACCOUNT NO: [id number] ROOM NO: [id number] AGE: 64 REPORT TYPE: 360 - QUERY RESPONSE DOCUMENT SEX: F ADMITTING PHYSICIAN:Concepcion Tierney MD ATTENDING PHYSICIAN:Concepcion Tierney MD Provider Query QUERY TEXT: Condition General 360MD Query related questions should be directed to: [facility] Coding Query Helpline Based on your medical judgement and the clinical indicators listed below kindly specify the underlying cause of the patient's Chest pain (CAD with unstable angina, CHF exacerbation, chest pain unspecified, or other more appropriate diagnosis)? The patient's Clinical Indicators include: Chest pain - ED PHYSICIAN RECORD 06/05/2024 Atherosclerotic heart disease of [place] coronary artery with unstable angina pectoris - Nephrology Consultation 06/05/2024 Coronary artery disease, continue Plavix, statin, ezetimibe - Internal Med. H and P 06/05/2024 [id number] systolic heart failure with volume overload.The patient was dialyzed last night and doing better.Dr. Medina, Nephrology following the patient. Dr. Vanessa, Cardiology consulted - PROGRESS NOTE 06/06/2024 BUMETANIDE 1 MG TABLET - MAR clopidogreL 75 MG TABLET - MAR Options provided: -- Respond - Create new note now -- Disagree - Not applicable / Not valid -- Disagree - Clinically unable to determine / Unknown -- Assign to another provider QUERY RESPONSE: CAD Query created by: Arslan Douglass on 06/12/2024 11:07 PM at 0352 PATIENT NAME: ELVIS FREEMAN [facility] 2024-06-06 13:11:00 [facility] ([facility]) Cardiology Progress Notes REPORT #: [id number] REPORT STATUS: Signed DATE: 06/06/24 TIME: 1311 PATIENT: ELVIS FREEMAN UNIT #: [id number] ROOM #: [facility] BED: 1 : 61 AGE: 64 SEX: F ATTEND: Concepcion Tierney MD ADM AUTHOR: Melyssa Arce MD CF1 ATTENT ION *EDITS and/or ADDENDA must be made in Patient Keeper for this note. * * Edits and ammendments created in [employer] are not visible * * in Patient Keeper or the legal medical record (HPF). * Attending: Celestino Vanessa MD 06/28/24 22:36 I have personally seen and examined the patient independently, and reviewed the patient's history, exam, and all cardiac and laboratory data on 06/06/24. I agree with the history, physical, and the assessment and plan as outlined by Melyssa Browning MD, Cardiovascular Fellow. Note Date: 06/06/24 13:11 -- ASSESSMENT/PLAN -- GENERAL ASSESSMENT: 64-year-old female with past medical history significant for hypertension, diabetes, paroxysmal A-fib on Eliquis, heart failure with preserved ejection fraction, ESRD was transferred from [facility] for chest pain. Patient is unclear if she was taking all the medications. She was unable to afford Eliquis. Cardiology is consulted for chest pain. Echo on 05/15/2024 showed ejection fraction 55 to 60%, grade 1 diastolic dysfunction, right atrium dilated, moderate-severe tricuspid regurgitation and a small pericardial effusion. LHC on 05/11/2024-showed 30% in-stent restenosis of the RCA, left main artery normal, LAD LAD 40-50% lesion, left circumflex had a 70% lesion in the proximal segment which was stented # Chest pain, resolved # Coronary artery disease status post stent to the x # Heart failure with preserved action fraction # Diabetes # Paroxysmal atrial fibrillation on Eliquis # ESRD On hemodialysis # Hypokalemia # Anemia of chronic disease Recommendations: Troponin up to 126.3, now downtrended EKG showed normal sinus rhythm Review echo as above Euvolemic Resume home Eliquis 5 Mg twice daily, rosuvastatin 20 Mg daily, clopidogrel 75 Mg daily, Bumex 2 Mg p.o. daily Start metoprolol tartrate 12.5 Mg twice a day Plan: Patient is advised to continue taking home Plavix and Eliquis. 1 month of Eliquis sample was provided as well. Patient is stable to be discharged from cardiology standpoint. Plan discussed with attending -- SUBJECTIVE -- CHIEF COMPLAINT: Patient denies any chest pain, shortness of breath HPI: 64-year-old female with past medical history significant for hypertension, diabetes, paroxysmal A-fib on Eliquis, heart failure with preserved ejection fraction, ESRD was transferred from [facility] for chest pain. Patient is unclear if she was taking all the medications. She was unable to afford Eliquis. Cardiology is consulted for chest pain. REVIEW OF SYSTEMS: Comment 13-point review of systems reviewed and negative except as mentioned HPI -- EXAM -- VITALS (06/05 13:11 - 06/06 13:11): Blood pressure: 115/65 (100/56 - 167/90) Respiratory rate: 16 (16 - 19) Temperature F: 97.8 Temperature C: 36.6 (36.4 - 37.4) Temperature source: Oral Pulse Rate: 64 (64 - 77) IOS (06/05 07:00-06/06 07:00): Net-2,000 Output2,000 HD net negative volume balance ml:2,000 HD volume in ml:0 HD volume out ml:2,000 EXAM: Other Constitutional: Well developed, in no acute distress. HEENT:moist mucous membranes Neck: Supple with no masses, no thyromegaly, No JVD. Respiratory: Clear to auscultation. Cardiovascular: S1S2 +, regular rate and rhythm. No murmurs, rubs, or gallops. No carotid bruits. Gastrointestinal: + Bowel sounds all quadrants. Soft, nontender with no masses or organomegaly. Musculoskeletal: Gait steady, Equal strength in all extremities. No weakness. Neurology: Alert and oriented X 3. No focal deficits. Extremities: 2+ peripheral pulses. no bilateral lower extremity edema. -- DATA -- MEDICATIONS APIXABAN 5 MG PO BID hydrALAZINE HCL 10 MG IV Q2H PRN BUMETANIDE 2 MG PO DAILY DEXTROSE 50%-WATER 25 ML IV ASDIR (PRN) clopidogreL 75 MG PO DAILY GLUCAGON 1 MG IM ASDIR (PRN) IPRATROPIUM/ALBUTEROL SULFATE 3 ML NEB RTQ4H PRN HYDROcodone BITARTRATE/APAP 1 TAB PO Q4H PRN ACETAMINOPHEN 650 MG PO Q4H PRN ONDANSETRON HCL/PF 4 MG IV Q6H PRN hydrALAZINE HCL 10 MG IV Q6H PRN METOPROLOL TARTRATE 12.5 MG PO Q12HR INSULIN LISPRO INSULIN SLIDING SCALE SUBQ C MEALS HS polyethylene glycoL 3350 1 PKT PO DAILY LAB RESULTS GLU BED (06/06/24 07:06) GLUBED 175 H GLU BED (06/06/24 10:54) GLUBED 301 *H at 2236 at 2236 ATTENT ION *EDITS and/or ADDENDA must be made in Patient Keeper for this note. * * Edits and ammendments created in [facility] are not visible * * in Patient Keeper or the legal medical record (HPF). * RPT #: [id number] END OF REPORT [facility] 2024-06-06 11:36:00 [facility] ([facility]) Med Order Sheet REPORT #: [id number] REPORT STATUS: Signed DATE: 06/06/24 TIME: 1136 PATIENT: ELVIS FREEMAN UNIT #: [id number] ROOM #: P.[id number] BED: 1 : 61 AGE: 64 SEX: F ATTEND: Concepcion Tierney MD ADM AUTHOR: Concepcion Tierney MD ATTENT ION *EDITS and/or ADDENDA must be made in Patient Keeper for this note. * * Edits and ammendments created in [facility] are not visible * * in Patient Keeper or the legal medical record (HPF). * Discharge Medication Reconciliation DISCHARGE MEDICATION LIST Apixaban Tab (Eliquis Tab) Dose: 5MG PO BID Bumetanide Tab (Bumex Tab) Dose: 2MG PO DAILY Clopidogrel Tab (Plavix Tab) Dose: 75MG PO DAILY Metoprolol Tartrate Tab (Lopressor Tab) Dose: 12.5MG PO Q12HR STOPPED HOSPITAL MEDICATIONS Dc'd: Acetaminophen Tab (Tylenol Tab) 650MG PO Q4H PRN pain (1-3) or temp>100.4Dc'd: Albuterol/Ipratrop Neb Soln (Duoneb Neb Soln) 3ML Neb RTQ4H PRN wheezing / shortness of breathDc'd: Dextrose 50% 50 ml Syringe (D50W 50 ml Syringe) 25ML IV ASDIR PRN hypoglycemiaDc'd: Glucagon Inj (Glucagon Inj) 1MG IM ASDIR PRN hypoglycemia if no iv/enteralDc'd: hydrALAZINE Inj (Apresoline Inj) 10MG IV Q2H PRN for sbp>170, dbp>105Dc'd: hydrALAZINE Inj (Apresoline Inj) 10MG IV Q6H PRN sbp greater than 160Dc'd: HYDROcodone/APAP 5/325 Tab ([place] 5/325 Tab) 1TAB PO Q4H PRN pain 4-10Dc'd: Insulin (Lispro) Inj (AdmeLOG Inj) INSULIN SLIDING SCALE SubQ C MEALS HSDc'd: Ondansetron Inj (Zofran Inj) 4MG IV Q6H PRN nausea and vomitingDc'd: Polyethylene Glycol Powder (Miralax Powder) 1PKT PO DAILY at 1136 ATTENT ION *EDITS and/or ADDENDA must be made in Patient Keeper for this note. * * Edits and ammendments created in [facility] are not visible * * in Patient Keeper or the legal medical record (HPF). * [facility] #: [id number] END OF REPORT [facility] 2024-06-06 06:53:00 [id number] [facility] [address] [place] [address] PATIENT NAME: ELVIS FREEMAN ADMIT DATE: 06/05/24 ACCOUNT NO: [id number] ROOM NO: [facility] AGE: 64 REPORT TYPE: PROGRESS NOTE SEX: F ADMITTING PHYSICIAN:Concepcion Tierney MD ATTENDING PHYSICIAN:Concepcion Tierney MD DATE: 06/06/2024 INTERNAL MEDICINE PROGRESS NOTE SUBJECTIVE: Events noted and doing better. Tolerated dialysis. Awake and responsive. Discussed with nursing staff at the bedside. No chest pain, no fever. OBJECTIVE: VITAL SIGNS: Blood pressure 113/60, heart rate 74, temperature 97.9, respiratory rate of 14. HEENT: Head normocephalic. NECK: Supple. CHEST AND LUNGS: Bilateral breathing sounds. HEART: Normal S1, S2. ABDOMEN: Soft. EXTREMITIES: No edema. ASSESSMENT AND PLAN: 1. Ztkir-vj-fgbxpqa systolic heart failure with volume overload. The patient was dialyzed last night and doing better. Dr. Medina, Nephrology following the patient. Dr. Vanessa, Cardiology consulted. 2. Atrial fibrillation, rate controlled. Continue the patient on metoprolol. 3. Coronary artery disease, status post percutaneous coronary intervention. Cardiology consulted. Trend troponin. The patient remains on telemetry. Continue the patient on Plavix 75 mg by mouth daily. The patient remains on Zetia 10 mg daily. Dictated By: Concepcion Tierney MD Date Dictated: 06/06/2024 06:53:16 Date Transcribed: 06/06/2024 07:13:01 AMY/CHARLES Receipt ID: [id number] Authenticated by Concepcion Tierney MD On 06/06/2024 10:18:41 AM at 1018 PATIENT NAME: ELVIS FREEMAN [facility] 2024-06-05 19:58:00 [facility] ([facility]) Internal Med. H P REPORT #: [id number] REPORT STATUS: Signed DATE: 06/05/24 TIME: 1957 PATIENT: ELVIS FREEMAN UNIT #: [id number] ROOM #: [facility] BED: 1 : 61 AGE: 64 SEX: F ATTEND: Concepcion Tierney MD ADM AUTHOR: Albertina Nowak NP ATTENT ION *EDITS and/or ADDENDA must be made in Patient Keeper for this note. * * Edits and ammendments created in [facility] are not visible * * in Patient Keeper or the legal medical record (HPF). * Note Date: 06/05/24 19:58 -- HISTORY -- ADMISSION DATE 06/05/2024 Primary care provider:Concepcion Tierney MD CHIEF COMPLAINT: Chest pain HPI: This is a 64 year old female with past medical history of atrial fibrillation, hypertension, ESRD on TTS schedule, coronary artery disease with PCI who presented to ED with complaints of chest pain. Pain is described as left sided. Labs revealed troponin 126.3, sodium 138, potassium 3.4, BUN 19, creatinine 2.60, glucose 110, WBC 9.3, hemoglobin 8.4, platelet 298, BNP 600. EKG revealed Normal sinus rhythm with a rate of 66 inferior Q waves. Lateral T wave flattening. No evidence of acute infarct. prolonged QTc at 524. Now admitted for ongoing management. HISTORY OBTAINED FROM: Records/patient PAST MEDICAL HISTORY: Atrial fibrillation with RVR, coronary artery disease, type 2 diabetes, ESRD, hypertension, HANNAH, congestive heart failure, hyperlipidemia, constrictive effusive pericarditis PAST SURGICAL HISTORY: Dialysis access, PCI IMMUNIZATION STATUS: None recent FAMILY HISTORY: Unknown. No early CAD in family members Social History Tobacco use: DETAILS/COMMENTS: Never smoked Vaping/Inhaled solvents: DETAILS/COMMENTS: Denies Alcohol use: DETAILS/COMMENTS: Deneis Drug use: DETAILS/COMMENTS: Denies ADDITIONAL SOCIAL HISTORY: NEG ETOH, NEG tobacco -- ALLERGIES/HOME MEDS -- Modifications made in this section do not update Allergy and Home Medication List ALLERGIES - No Known Allergies ( UNKNOWN - Allergy ) HOME MEDICATIONS - Amiodarone Tab (Cordarone Tab) (PO - DAILY - 200 MG) - Apixaban Tab (Eliquis Tab) (PO - BID - 5 MG) - Clopidogrel Tab (Plavix Tab) (PO - DAILY - 75 MG) - Ezetimibe Tab (Zetia Tab) (PO - DAILY - 10 MG) - Gabapentin Cap (Neurontin Cap) (PO - BID 9A 5P - 200 MG) - Methocarbamol Tab (Robaxin Tab) (PO - QID - 500 MG) - Novolin 70/30 susp (insulin NPH and regular human) (SubQ - BID AC - 15 UNITS) - Rosuvastatin Tab (Crestor Tab ) (PO - DAILY 1700 - 20 MG) - Sevelamer Carbonate Tab (Renvela Tab) (PO - TID MEALS - 800 MG) - bumetanide tablet (PO - DAILY - 2 MG) -- SUBJECTIVE -- REVIEW OF SYSTEMS: General: Negative for fever. Respiratory: Negative for dyspnea. Cardiovascular: Positive for chest pain. Gastrointestinal: Negative for abdominal pain. Musculoskeletal: Negative for joint stiffness. Skin: Negative for rashes. -- EXAM -- VITALS (06/04 19:58 - 06/05 19:58): Temperature C: 36.5 (36.4 - 36.5) Pulse Rate: 77 (66 - 77) Temperature source: Oral Respiratory rate: 18 (18 - 19) Temperature F: 97.8 (97.8 - 98.3) Blood pressure: 134/84 (132/70 - 167/90) EXAM: General: Awake, alert, and oriented. Head: Normocephalic, atraumatic. Eyes: PERRL, EOM intact, conjunctiva and sclera clear. Neck: No JVD, supple. Lungs: Clear bilaterally with normal respiratory effort. Heart: Regular rate and rhythm, normal S1, S2. Abdomen: Soft, non-tender, non-distended, bowel sounds present. Musculoskeletal: Bilateral lower extremity weakness. Extremities: No clubbing, no cyanosis, no edema. Neurological: No focal deficits, cranial nerves II-XII grossly intact. Pulses: Pulses normal in all extremities. Skin: Intact without significant lesion. -- DATA -- ALLERGIES LAB RESULTS TROPI (06/05/24 07:57) TROPONIN-I 126.3 *H BASIC METABOLIC PANEL (06/05/24 07:57) CALCIUM 8.5 L CREATININE 2.60H H GLOMERULAR FILTRATION RATE 20 L BLOOD UREA NITROGEN 19 GLUCOSE 110H H CARBON DIOXIDE 31 CHLORIDE 98 POTASSIUM 3.4L L SODIUM 138 CBC W/O DIFF (06/05/24 07:57) RED CELL DISTRIBUTION WIDTH 17.5 H PLATELET COUNT 298 HEMATOCRIT 29.1L L MEAN CELL VOLUME 85.6 MEAN CELL HGB 24.7 L MEAN CELL HGB CONCENTRATION 28.9 L WHITE BLOOD CELL 9.3 RED BLOOD CELL 3.4 L HEMOGLOBIN 8.4L L BNP (06/05/24 07:57) B-TYPE NATRIURETIC PEPTIDE 600 H LIPID PROFILE (CORONARY RISK) (06/05/24 07:57) CORONARY RISK FACTOR 1.95 LIPOPROTEIN LDL 17 HDL CHOLESTEROL 39 L CHOLESTEROL 76 TRIGLYCERIDES 104 HBSAG (06/05/24 09:16) AG HEPATITIS B SURFACE Nonreactive HBSAB (06/05/24 09:16) AB HEPATITIS B SURFACE REACTIVE A TROPI (06/05/24 09:16) TROPONIN-I 125.5 *H HBCAB (06/05/24 09:16) AB HEPATITIS B CORE Nonreactive TROPI (06/05/24 11:42) TROPONIN-I 123.5 *H TROPI (06/05/24 14:37) TROPONIN-I 124.4 *H GLU BED (06/05/24 14:41) GLUBED 130 H GLU BED (06/05/24 16:51) GLUBED 221 H -- ASSESSMENT/PLAN -- GENERAL ASSESSMENT: 1. Chest pain, trend troponin. Cardiology consulted. 2. Coronary artery disease, continue Plavix, statin, ezetimibe. 3. Atrial fibrillation, rate controlled. Currently on apixaban. EKG revealed NSR. 4. Type 2 diabetes, continue lispro. Check HA1C. 5. ESRD, HD dependence. Continue TTS schedule. Consult Nephrology. 6. Congestive heart failure, volume management per HD. A/P: CONSULTANTS: Cardiology, Nephrology at 0453 at 0453 ATTENT ION *EDITS and/or ADDENDA must be made in Patient Keeper for this note. * * Edits and ammendments created in [facility] are not visible * * in Patient Keeper or the legal medical record (HPF). * RPT #: [id number] END OF REPORT [facility] 2024-06-05 16:13:00 [facility] ([facility]) Cardiology Consultation REPORT #: [id number] REPORT STATUS: Signed DATE: 06/05/24 TIME: 1613 PATIENT: ELVIS FREEMAN UNIT #: [id number] ROOM #: P.[id number] BED: 1 : 61 AGE: 64 SEX: F ATTEND: Concepcion Tierney MD [facility] AUTHOR: Melyssa Arce MD [facility] ATTENT ION *EDITS and/or ADDENDA must be made in Patient Keeper for this note. * * Edits and ammendments created in [employer] are not visible * * in Patient Keeper or the legal medical record (HPF). * Attending: Celestino Vanessa MD 06/28/24 22:39 I have personally seen and examined the patient independently, and reviewed the patient's history, exam, and all cardiac and laboratory data on 06/05/24. I agree with the history, physical, and the assessment and plan as outlined by Melyssa Browning MD, Cardiovascular Fellow. Note Date: 06/05/24 16:13 -- ASSESSMENT/PLAN -- GENERAL ASSESSMENT: 64-year-old female with past medical history significant for hypertension, diabetes, paroxysmal A-fib on Eliquis, heart failure with preserved ejection fraction, ESRD was transferred from [facility] for chest pain. Patient is unclear if she was taking all the medications. She was unable to afford Eliquis. Cardiology is consulted for chest pain. Echo on 05/15/2024 showed ejection fraction 55 to 60%, grade 1 diastolic dysfunction, right atrium dilated, moderate-severe tricuspid regurgitation and a small pericardial effusion. [facility] on 05/11/2024-showed 30% in-stent restenosis of the RCA, left main artery normal, LAD LAD 40-50% lesion, left circumflex had a 70% lesion in the proximal segment which was stented # Chest pain # Coronary artery disease status post stent to the LCx # Heart failure with preserved action fraction # Diabetes # Paroxysmal atrial fibrillation on Eliquis # ESRD On hemodialysis # Hypokalemia # Anemia of chronic disease Recommendations: Troponin up to 126.3, now downtrended Order EKG Review echo as above Euvolemic Resume home Eliquis 5 Mg twice daily, rosuvastatin 20 Mg daily, clopidogrel 75 Mg daily, Bumex 2 Mg p.o. daily Start metoprolol tartrate 12.5 Mg twice a day Plan: Resume home medications. Order EKG Plan discussed with attending -- HISTORY -- REASON FOR CONSULT: Chest pain CHIEF COMPLAINT: Patient denies any chest pain HPI: 64-year-old female with past medical history significant for hypertension, diabetes, paroxysmal A-fib on Eliquis, heart failure with preserved ejection fraction, ESRD was transferred from [facility] for chest pain. Patient is unclear if she was taking all the medications. She was unable to afford Eliquis. Cardiology is consulted for chest pain. PAST MEDICAL HISTORY: Atrial fibrillation with RVR (03/2024) Coronary artery disease Diabetes ESRD Hypertension HFpEF PAST SURGICAL HISTORY: Dialysis access FAMILY HISTORY: Unknown. No early CAD in family members Social History Tobacco use: DETAILS/COMMENTS: Never smoked Vaping/Inhaled solvents: DETAILS/COMMENTS: Denies Alcohol use: DETAILS/COMMENTS: Deneis Drug use: DETAILS/COMMENTS: Denies -- ALLERGIES/HOME MEDS -- Modifications made in this section do not update Allergy and Home Medication List ALLERGIES - No Known Allergies ( UNKNOWN - Allergy ) HOME MEDICATIONS - Amiodarone Tab (Cordarone Tab) (PO - DAILY - 200 MG) - Apixaban Tab (Eliquis Tab) (PO - BID - 5 MG) - Clopidogrel Tab (Plavix Tab) (PO - DAILY - 75 MG) - Ezetimibe Tab (Zetia Tab) (PO - DAILY - 10 MG) - Gabapentin Cap (Neurontin Cap) (PO - BID 9A 5P - 200 MG) - Methocarbamol Tab (Robaxin Tab) (PO - QID - 500 MG) - Novolin 70/30 susp (insulin NPH and regular human) (SubQ - BID AC - 15 UNITS) - Rosuvastatin Tab (Crestor Tab ) (PO - DAILY 1700 - 20 MG) - Sevelamer Carbonate Tab (Renvela Tab) (PO - TID MEALS - 800 MG) - bumetanide tablet (PO - DAILY - 2 MG) -- SUBJECTIVE -- REVIEW OF SYSTEMS: Comment 13-point review of systems reviewed and negative except as mentioned HPI -- EXAM -- VITALS (06/04 16:13 - 06/05 16:13): Temperature source: Oral Pulse Rate: 72 (66 - 72) Respiratory rate: 18 (18 - 19) Temperature F: 97.9 (97.9 - 98.3) Temperature C: 36.4 Blood pressure: 162/90 (132/70 - 162/90) EXAM: Other: Constitutional: Well developed, in no acute distress. HEENT:moist mucous membranes Neck: Supple with no masses, no thyromegaly, No JVD. Respiratory: Clear to auscultation. Cardiovascular: S1S2 +, regular rate and rhythm. No murmurs, rubs, or gallops. No carotid bruits. Gastrointestinal: + Bowel sounds all quadrants. Soft, nontender with no masses or organomegaly. Musculoskeletal: Gait steady, Equal strength in all extremities. No weakness. Neurology: Alert and oriented X 3. No focal deficits. Extremities: 2+ peripheral pulses. no bilateral lower extremity edema. -- DATA -- ALLERGIES MEDICATIONS hydrALAZINE HCL 10 MG IV Q2H PRN HYDROcodone BITARTRATE/APAP 1 TAB PO Q4H PRN ACETAMINOPHEN 650 MG PO Q4H PRN LAB RESULTS TROPI (06/05/24 07:57) TROPONIN-I 126.3 *H LIPID PROFILE (CORONARY RISK) (06/05/24 07:57) CORONARY RISK FACTOR 1.95 LIPOPROTEIN LDL 17 HDL CHOLESTEROL 39 L CHOLESTEROL 76 TRIGLYCERIDES 104 BASIC METABOLIC PANEL (06/05/24 07:57) CALCIUM 8.5 L CREATININE 2.60H H GLOMERULAR FILTRATION RATE 20 L BLOOD UREA NITROGEN 19 GLUCOSE 110H H CARBON DIOXIDE 31 CHLORIDE 98 POTASSIUM 3.4L L SODIUM 138 CBC W/O DIFF (06/05/24 07:57) RED CELL DISTRIBUTION WIDTH 17.5 H PLATELET COUNT 298 HEMATOCRIT 29.1L L MEAN CELL VOLUME 85.6 MEAN CELL HGB 24.7 L MEAN CELL HGB CONCENTRATION 28.9 L WHITE BLOOD CELL 9.3 RED BLOOD CELL 3.4 L HEMOGLOBIN 8.4L L BNP (06/05/24 07:57) B-TYPE NATRIURETIC PEPTIDE 600 H HBSAG (06/05/24 09:16) AG HEPATITIS B SURFACE Nonreactive HBSAB (06/05/24 09:16) AB HEPATITIS B SURFACE REACTIVE A TROPI (06/05/24 09:16) TROPONIN-I 125.5 *H HBCAB (06/05/24 09:16) AB HEPATITIS B CORE Nonreactive TROPI (06/05/24 11:42) TROPONIN-I 123.5 *H TROPI (06/05/24 14:37) TROPONIN-I 124.4 *H GLU BED (06/05/24 14:41) GLUBED 130 H at 2239 at 2239 ATTENT ION *EDITS and/or ADDENDA must be made in Patient Keeper for this note. * * Edits and ammendments created in [facility] are not visible * * in Patient Keeper or the legal medical record (HPF). * [facility] #: [id number] END OF REPORT [facility] 2024-06-05 08:34:00 [facility] ([facility]) Nephrology Consultation REPORT #: [id number] REPORT STATUS: Signed DATE: 06/05/24 TIME: 833 PATIENT: ELVIS FREEMAN UNIT #: [id number] [facility] : [facility] AGE: 64 SEX: F ATTEND: Concepcion Tierney MD ADM AUTHOR: Kenzie Medina MD ATTENT ION *EDITS and/or ADDENDA must be made in Patient Keeper for this note. * * Edits and ammendments created in [employer] are not visible * * in Patient Keeper or the legal medical record (HPF). * Note Date: 06/05/24 08:34 -- ASSESSMENT/PLAN -- GENERAL ASSESSMENT: 64-year-old female with past medical history significant for hypertension, diabetes, paroxysmal A-fib on Eliquis, heart failure with preserved ejection fraction, ESRD was transferred from [facility] for chest pain. Patient is unclear if she was taking all the medications. She was unable to afford Eliquis. Cardiology is consulted for chest pain. Echo on 05/15/2024 showed ejection fraction 55 to 60%, grade 1 diastolic dysfunction, right atrium dilated, moderate-severe tricuspid regurgitation and a small pericardial effusion. [facility] on 05/11/2024-showed 30% in-stent restenosis of the RCA, left main artery normal, LAD LAD 40-50% lesion, left circumflex had a 70% lesion in the proximal segment which was stented # Chest pain # Coronary artery disease status post stent to the LCx # Heart failure with preserved action fraction # Diabetes # Paroxysmal atrial fibrillation on Eliquis # ESRD On hemodialysis # Hypokalemia # Anemia of chronic disease ASSESSMENT PLAN: 1: Atherosclerotic heart disease of [place] coronary artery with unstable angina pectoris 2: ESRD (end stage renal disease) 3: Hypertensive heart and chronic kidney disease without heart failure, with stage 5 chronic kidney disease, or end stage renal disease 4: Paroxysmal atrial fibrillation 5: Stenosis of coronary artery stent, initial encounter 6: Type 2 diabetes mellitus without complications 7: Unspecified diastolic (congestive) heart failure 8: Nonrheumatic mitral (valve) insufficiency 9: Other pericardial effusion (noninflammatory) 10: Rheumatic disorders of both mitral and tricuspid valves 11: Coronary artery disease 12: Dependence on renal dialysis 13: Nonrheumatic mitral (valve) annulus calcification 14: Nonrheumatic tricuspid (valve) insufficiency 15: Chest pain 16: Anemia in chronic kidney disease 17: Essential (primary) hypertension 18: Renal osteodystrophy ADDITIONAL COMMENTS: HD as scheduled -- HISTORY -- REASON FOR CONSULT: esrd CHIEF COMPLAINT: chest pain HPI: 64-year-old female with past medical history significant for hypertension, diabetes, paroxysmal A-fib on Eliquis, heart failure with preserved ejection fraction, ESRD was transferred from [facility] for chest pain. Patient is unclear if she was taking all the medications. She was unable to afford Eliquis. Renal consulted for ESRD on HD Past medical history: Atrial fibrillation with RVR (03/2024) Coronary artery disease Diabetes ESRD Hypertension HFpEF Past surgical history: Dialysis access Family history: Unknown. No early CAD in family members Social History Tobacco use: Details/comments: Never smoked Vaping/Inhaled solvents: Details/comments: Denies Alcohol use: Details/comments: Deneis Drug use: Details/comments: Denies PAST MEDICAL HISTORY: Atrial fibrillation with RVR (03/2024) Coronary artery disease Diabetes ESRD Hypertension HFpEF PAST SURGICAL HISTORY: Dialysis access FAMILY HISTORY: Unknown. No early CAD in family members Social History Tobacco use: DETAILS/COMMENTS: Never smoked Vaping/Inhaled solvents: DETAILS/COMMENTS: Denies Alcohol use: DETAILS/COMMENTS: Yue Drug use: DETAILS/COMMENTS: Denies -- ALLERGIES/HOME MEDS -- Modifications made in this section do not update Allergy and Home Medication List ALLERGIES - No Known Allergies ( UNKNOWN - Allergy ) HOME MEDICATIONS - Amiodarone Tab (Cordarone Tab) (PO - DAILY - 200 MG) - Apixaban Tab (Eliquis Tab) (PO - BID - 5 MG) - Clopidogrel Tab (Plavix Tab) (PO - DAILY - 75 MG) - Ezetimibe Tab (Zetia Tab) (PO - DAILY - 10 MG) - Gabapentin Cap (Neurontin Cap) (PO - BID 9A 5P - 200 MG) - Methocarbamol Tab (Robaxin Tab) (PO - QID - 500 MG) - Novolin 70/30 susp (insulin NPH and regular human) (SubQ - BID AC - 15 UNITS) - Rosuvastatin Tab (Crestor Tab ) (PO - DAILY 1700 - 20 MG) - Sevelamer Carbonate Tab (Renvela Tab) (PO - TID MEALS - 800 MG) - bumetanide tablet (PO - DAILY - 2 MG) -- SUBJECTIVE -- REVIEW OF SYSTEMS: Comment 10 Point ROS negative unless otherwise stated. -- EXAM -- EXAM: Other: Constitutional: Well developed, well nourished patient, in no acute distress. Derm/Integumentary: Warm and dry with no rashes, sores, or lesions. Mouth: Mucosa moist and pink with no lesions. Neck: supple with no masses, no thyromegaly, No JVD. Respiratory: Clear to auscultation. Heart: S1S2+, RRR, + systolic murmur Gastrointestinal: + Bowel Sounds all quadrants. Soft, nontender with no masses or organomegaly. Musculoskeletal: Equal strength in all extremities. No weakness. Neurology: Alert and oriented X 3. Calm, cooperative affect. No focal deficits. Extremities: + peripheral pulses. No clubbing, cyanosis. No lower extremity edema. -- DATA -- ALLERGIES MEDICATIONS hydrALAZINE HCL 10 MG IV Q2H PRN morphine SULFATE 4 MG IV Q4H PRN HYDROcodone BITARTRATE/APAP 1 TAB PO Q4H PRN ACETAMINOPHEN 650 MG PO Q4H PRN at 1852 ATTENT ION *EDITS and/or ADDENDA must be made in Patient Keeper for this note. * * Edits and ammendments created in [employer] are not visible * * in Patient Keeper or the legal medical record (HPF). * RPT #: [id number] END OF REPORT [facility] 2024-06-05 08:16:00 [facility] ([facility]) EMERGENCY PROVIDER REPORT REPORT#:[id number] REPORT STATUS: Signed DATE:06/05/24 TIME: 815 PATIENT: ELVIS FREEMAN UNIT #: [id number] ROOM: [facility] BED: : 61 AGE: 64 SEX: F PCP PHYS: Concepcion Tierney MD SERVICE AUTHOR: Mary Carballo MD REP SRV REP SRV TM: 0816 * ALL edits or amendments must be made on the electronic/computer document * HPI-Chest Pain 40 and Over Free Text HPI Notes Free Text HPI Notes Patient is a 64-year-old with a history of hypertension and CHF, constrictive effusive pericarditis, CAD status post PCI and ESRD on HD (TTHS) presenting to the ER as a transfer from [facility] for chest pain. Found to be 288. patient describes it as left-sided when it started. Resolved. Unclear who her ear nose throat surgeon is. General Initial Greet Date/Time 06/05/24724 Presentation Chief Complaint Chest pain Sudden in Onset? Yes Review of Systems ROS Statements All systems rev neg except as marked. Free Text ROS Notes Free Text ROS Notes Chest pain Past Medical History - Adult Stated Complaint NSTEMI Allergies Coded Allergies: No Known Allergies (05/05/24) Home Medications Active Scripts Lactulose (Lactulose 10 GM/15ML) 30 ML PO TID Lactulose (Lactulose 10 GM/15ML) 30 ML PO TID #250 ML Prov: 05/11/24 Doxycycline Monohydrate (Monodox) 100 MG PO Q12HR Doxycycline Monohydrate (Monodox) 100 MG PO Q12HR #20 CAP Prov: 05/11/24 Colchicine (Colcrys) 0.3 MG PO MOWEFR@1600 Colchicine (Colcrys) 0.3 MG PO MOWEFR@1600 #10 TAB Prov: 05/11/24 Reported Medications Clopidogrel Bisulfate (Plavix) 75 MG PO DAILY Amiodarone (Pacerone) 200 MG PO DAILY Bumetanide (Bumex) 2 MG PO DAILY Apixaban (Eliquis) 5 MG PO BID Ezetimibe (Zetia) 10 MG PO DAILY Gabapentin (Neurontin) 200 MG PO BID 9A 5P Methocarbamol (Robaxin) 500 MG PO QID Rosuvastatin 20 MG PO DAILY 1700 Sevelamer 800 MG PO TID MEALS Insulin Nph/Reg Insulin Hum (Novolin 70/30) 15 UNITS SUBQ BID AC Calculated Suicide Risk (nurs) No risk Smoking status for patients 13 years old or older: Never Smoker Physical Exam Vital Signs Review of Vital Signs Reviewed Free Text PE Notes Free Text PE Notes General/Const Awake, Alert, No acute distress, nontoxic Head Atraumatic, Normocephalic Ears/Nose/Throat Airway patent Neck Neck Supple Resp/Chest Breath sounds NL, No respiratory distress, No rales, No rhonchi, No wheezing Cardiovascular Heart rate NL, Regular rhythm, Heart sounds NL Abdomen/GI Soft, Non-tender, No distention MS No extremity swelling, NO gross deformity Skin Warm, Dry Neurologic Moving all extremities, Speech NL Psychiatric Affect NL, Mood NL Interpretation Diagnostics Lab Results Interpretation Results Laboratory Tests 06/05/24 0757: [Embedded Image Not Available] 06/05/24 0757: [Embedded Image Not Available] Laboratory Tests: 06/05 06/05 06/05 0757 [id number] Chemistry Sodium (136 - 145 mmol/L) 138 Potassium (3.5 - 5.1 mmol/L) 3.4 L Chloride (98 - 107 mmol/l) 98 Carbon Dioxide (20 - 31 mmol/L) 31 BUN (9 - 23 mg/dL) 19 Creatinine (0.55 - 1.02 mg/dL) 2.60 H Glomerular Filtr Rate (>60 mL/min) 20 L Glucose (74 - 106 mg/dL) 110 H Calcium (8.7 - 10.4 mg/dL) 8.5 L Troponin I High Sens (27.36 - 66.23 pg/mL) 126.3 *H B-Natriuretic Peptide (<100 pg/mL) 600 H Triglycerides (<150 mg/dL) 104 Cholesterol (<200 mg/dL) 76 LDL Cholesterol [place] (<100 mg/dL) 17 HDL Cholesterol (>60 mg/dL) 39 L Coronary Risk Interp 1.95 Hematology WBC (4.8 - 10.8 x10 3/uL) 9.3 RBC (4.20 - 5.40 x10 6/uL) 3.40 L Hgb (12.0 - 16.0 g/dL) 8.4 L Hct (37.0 - 47.0 %) 29.1 L MCV (81.0 - 99.0 fL) 85.6 MCH (27 - 31 pg) 24.7 L MCHC (33 - 36.5 G/DL) 28.9 L RDW (12.9 - 16.9 %) 17.5 H Plt Count (150 - 440 x10 3/uL) 298 ECG #1 Interpretation Text/Dict Note Normal sinus rhythm with a rate of 66 inferior Q waves. Lateral T wave flattening. No evidence of acute infarct. prolonged QTc at 524 Date 06/05/24 Time 0822 Re-Evaluation MDM Free Text MDM Notes Free Text MDM Notes 64-year-old female here with chest pain. Elevated troponin concerning for NSTEMI versus secondary to her ESRD. Discussed with cardiology Dr. Vanessa. Will consult ear nose throat surgeon. Discussed results with the patient as well as the plan to admit. Patient expressed understanding and agreement with the plan. ED Course Medication(s) Ordered Medication(s) Ordered: Cardiovascular Drugs Sig/Dirk Start time Last Medication Dose Route Stop Time Status Admin Hydralazine HCl 10 MG Q2H PRN PRN 06/05 829 AC IV 06/06 726 Central Nervous System Agents Sig/Dirk Start time Last Medication Dose Route Stop Time Status Admin Acetaminophen 650 MG Q4H PRN PRN 06/05 829 AC PO 06/06 726 Hydrocodone Bitart/ 1 TAB Q4H PRN PRN 06/05 829 AC Acetaminophen PO 06/06 726 Morphine Sulfate 4 MG Q4H PRN PRN 06/05 829 AC IV 06/05 1426 Patient Discharge Departure Vital Signs/Condition Vital Signs All vital signs available at the time of this entry have been reviewed. Clinical Impression Clinical Impression Primary Impression: NSTEMI (non-ST elevated myocardial infarction) Disposition Decision Hospitalize Hosp Physician Name Concepcion Teirney MD Hosp Physician Hospitalist Request Time 823 Request Date 06/05/24 )( Accepts Hospitalization Yes )( Reason for Hospitalization NSTEMI )( Accepted Time 823 )( Accepted Date 06/05/24 Call Information will see patient Discharge/Care Plan Admit Note I have spoken with the patient and/or caregivers. I have explained the patient's condition, diagnoses and treatment plan based on the information available to me at this time. I have answered the patient's and/or caregiver's questions and addressed any concerns. The patient and/or caregivers have as good an understanding of the patient's diagnosis, condition and treatment plan as can be expected at this point. The patient has been stabilized within the capability of the emergency department. The patient will be transported for further care and management or will be moved to an observation or inpatient service. I have communicated with the staff or medical practitioner taking over this patient's care. at 1122 RPT #:[id number] END OF REPORT [facility] 2024-06-05 04:20:00 [facility] ([facility]) EMERGENCY PROVIDER REPORT REPORT#:[id number] REPORT STATUS: Signed DATE:06/05/24 TIME:0420 PATIENT: ELVIS FREEMAN UNIT #: [id number] ROOM/BED: : 61 AGE: 64 SEX: F PCP PHYS: Yaneth Hopson MD SERVICE AUTHOR: Missy Zhou DO REP SRV REP SRV TM: 0056 * ALL edits or amendments must be made on the electronic/computer document * HPI-Chest Pain 40 and Over General Initial Greet Date/Time 06/05/24 0056 Presentation Chief Complaint Chest pain Sudden in Onset? No )( Migration/Movement None Free Text HPI Notes Free Text HPI Notes 64-year-old female with past medical history significant for hypertension, diabetes, CHF and ESRD on hemodialysis presents to the ER complaining of chest pain. Patient is complaining of increased swelling in her lower extremities for the past 3 days. Patient endorses that she is compliant with her dialysis. Risk-Chest Pain 40 and Over Risk Stratification )( Coronary Artery Disease Risk factors reviewed )( Thoracic Aortic Dissection Risk factors reviewed )( Pulmonary Embolism Risk factors reviewed )( HEART for MACE )( HEART for MACE Response Value History High index of suspicion [address]-depression 2 Age Age 45 - 65 1 Risk Factors for CAD 3+ CAD risk factors 2 Troponin > or = to 3x NL trop 2 Total 9 Review of Systems ROS Statements All systems rev neg except as marked. Past Medical History - Adult Stated Complaint HX HEART ATTACK, CHEST PAIN Allergies Coded Allergies: No Known Allergies (04/19/24) Home Medications Active Scripts AMIODARONE (PACERONE) 200 MG PO DAILY AMIODARONE (PACERONE) 200 MG PO DAILY #30 TAB Ref 3 Prov: 05/03/24 FUROSEMIDE (LASIX) 40 MG PO BID FUROSEMIDE (LASIX) 40 MG PO BID #32 TABS Ref 2 Prov: 05/03/24 Reported Medications APIXABAN (ELIQUIS) 5 MG PO BID methocarbamoL (ROBAXIN) 500 MG PO QID BUMETANIDE (BUMEX) 2 MG PO DAILY CLOPIDOGREL (PLAVIX) 75 MG PO DAILY EZETIMIBE 10 MG PO DAILY GABAPENTIN (NEURONTIN) 200 MG PO BID INSULIN NPH/REG INSULIN HUM (NovoLIN 70/30) 15 UNITS SUBQ BID ROSUVASTATIN 20 MG PO DAILY SEVELAMER CARBONATE (RENVELA) 800 MG PO TID MEALS INSULIN NPH/REG INSULIN HUM (NovoLIN 70/30) 15 UNITS SUBQ BID COLCHICINE (COLCRYS) 0.3 MG PO BID DOXYCYCLINE MONOHYDRATE (MONODOX) 100 MG PO Q12H Calculated Suicide Risk (nurs) No risk Additional Surgical History Reviewed. Additional Family History Noncontributory. Smoking status for patients 13 years old or older: Never Smoker Physical Exam Vital Signs Vital Signs First Documented: Result Date Time Pulse Ox 99 06/05 57 B/P 145/65 06/05 57 B/P Mean 91 06/05 57 O2 Delivery Room air 06/05 57 Temp 37.4 06/05 57 Pulse 69 06/05 57 Resp 18 06/05 57 Last Documented: Result Date Time Resp 06/05 Pulse Ox 98 06/05 229 B/P 102/61 06/05 229 B/P Mean 77 06/05 229 Pulse 70 06/05 229 O2 Delivery Room air 06/05 57 Temp 37.4 06/05 57 Review of Vital Signs Reviewed Free Text PE Notes Free Text PE Notes GENERAL: Nontoxic, alert, oriented x 3 HEENT: Normocephalic, atraumatic, NECK: supple, no rigidity. No lymphadenopathy LUNGS: Clear to auscultation bilaterally. CV: regular rate and rhythm GI: soft, nontender, normoactive bowel sounds, : no suprapubic or flank tenderness. BACK: no spinal or paraspinal tenderness. EXT: No cyanosis, clubbing or distal pitting edema, well perfused, peripheral edema bilateral SKIN: warm and dry, no ulcerations. NEURO: no focal neurodeficits Interpretation Diagnostics Lab Results Interpretation Results Laboratory Tests 06/05/24138: [Embedded Image Not Available] Laboratory Tests: 06/05 0138 Chemistry Sodium (136 - 145 mmol/L) 136 Potassium (3.4 - 5.0 mmol/L) 3.7 Chloride (98 - 107 mmol/L) 97 L Carbon Dioxide (21 - 32 mmol/L) 34 H Anion Gap (4 - 15 GAP calc) 5 BUN (7 - 18 MG/DL) 20 H Creatinine (0.6 - 1.0 MG/DL) 2.7 H Glomerular Filtr Rate (>60 estGFR) 19 L Glucose (70 - 110 MG/DL) 185 H Calcium (8.5 - 10.1 MG/DL) 9.6 Phosphorus (2.5 - 4.9 MG/DL) 3.1 Magnesium (1.8 - 2.4 MG/DL) 1.7 L Total Bilirubin (0.0 - 1.0 MG/DL) 0.4 Direct Bilirubin (0.0 - 0.3 MG/DL) 0.2 Indirect Bilirubin (0.2 - 1.2 MG/DL) 0.20 AST (15 - 37 Unit/L) 27 ALT (30 - 65 Unit/L) 38 Total Alk Phosphatase (50 - 136 Unit/L) 126 Total Creatine Kinase (21 - 215 Unit/L) 37 Troponin I High Sens (0 - 54 ng/L) 233.3 *H Total Protein (6.4 - 8.2 G/DL) 7.7 Albumin (3.4 - 5.0 G/DL) 2.7 L Lipase (13 - 75 Unit/L) 83 H Coagulation INR (0.8 - 1.2 INR Unit) 1.29 H PTT ([place]) (26 - 35 SECONDS) 32.7 PT Patient/Control Mix (9.3 - 12.9 SECONDS) 14.4 H Hematology WBC (3.5 - 11.0 K/mm3) 9.7 RBC (4.70 - 6.10 M/mm3) 3.66 L Hgb (10.4 - 14.9 G/DL) 9.1 L Hct (31.5 - 44.1 %) 31.1 L MCV (84.5 - 98.6 Fl) 85.0 MCH (27.0 - 34.2 pg) 24.9 L MCHC (31.5 - 34.0 G/DL) 29.3 L RDW (11.5 - 14.5 SD) 17.6 H Plt Count (150 - 450 K/mm3) 336 MPV (7.0 - 10.5 fL) 12.00 H Recent Impressions: RADIOLOGY - XR CHEST 1 V 06/05 0258 Report Impression - Status: SIGNED Entered: 06/05/2024 0329 IMPRESSION: Small to moderate left pleural effusion, associated with suspected compressive atelectasis of the left lung base, similar to the chest x-ray from 04/29/2024. Impression By: DeonnaBPViraj - Lazaro Diallo M.D. Re-Evaluation MDM ED Course Medication(s) Ordered Medication(s) Ordered: Cardiovascular Drugs Sig/Dirk Start time Last Medication Dose Route Stop Time Status Admin Nitroglycerin 0.4 MG X1ED STA 06/05 0129 DC 06/05 SL 06/05 0130 0151 Central Nervous System Agents Sig/Dirk Start time Last Medication Dose Route Stop Time Status Admin Aspirin 324 MG X1ED STA 06/05 0128 DC 06/05 PO 06/05 0129 0151 Differential Diagnosis )( Differential Diagnosis Acute coronary syndrome, Acute myocardial infarct, Anxiety disorder, Aortic dissection, Aortic stenosis, Asthma exacerbation, Bronchitis, Chest pain, Chest pain, acute, Cholecystitis, Cholelithiasis, Congestive heart failure, Contusion, Costochondritis, Dysrhythmia, Esophageal rupture, Esophagitis, Gastritis, GERD, Gun shot wound chest, Hiatal hernia, Hypertroph cardiomyopathy, Kenia-Falcon syndrome, Mitral stenosis, Mitral valve prolapse, Musculoskeletal pain, Myocardial infarction, Myocarditis, Peptic ulcer disease, Pericarditis, Pleurisy, Pneumomediastinum, Pneumonia, Pneumothorax, Pulmonary edema, Pulmonary embolism, Rib fracture, Stab wound chest, Stable angina, Unstable angina Free Text MDM Notes Free Text MDM Notes Patient given aspirin and nitro glycerin in the ER. MDM-Independent Interpretation My ECG Interpretation EKG was read and interpreted by me. Normal sinus rhythm rate 71, normal axis deviation, Q waves V1, V2, abnormal EKG. EKG was done on 05 June 2024 at 1:05 AM, Patient Discharge Departure Vital Signs/Condition Vital Signs First Documented: Result Date Time Pulse Ox 99 06/05 0058 B/P 145/65 06/05 0058 B/P Mean 91 06/05 0058 O2 Delivery Room air 06/05 57 Temp 37.4 06/05 005 Pulse 69 06/05 0058 Resp 18 06/05 57 Last Documented: Result Date Time Resp 06/05 0234 Pulse Ox 98 06/05 0230 B/P 102/61 06/05 0230 B/P Mean 77 06/05 0230 Pulse 70 06/05 0230 O2 Delivery Room air 06/05 57 Temp 37.4 06/05 0058 All vital signs available at the time of this entry have been reviewed. Clinical Impression Clinical Impression Primary Impression: Renal insufficiency Secondary Impressions: Chest pain, NSTEMI (non-ST elevated myocardial infarction ), Pleural effusion, left Disposition Decision Transfer )( Request Date 06/05/24 [facility] Transfer Accepted Yes Accepted by: Dr. Mayorga )( Acceptance Time 0435 )( Acceptance Date 06/05/24 Discharge/Care Plan Counseled Regarding Diagnosis, Lab results, Imaging studies, Need for transfer Critical Care Time Spent (minutes): 55 Services Performed Patient management by me, Time spent at bedside, Reviewing test results, Reviewing imaging, Discussing patient care, Documentation in record, Time with fam/surrogate Separately billable procedures excluded from time. Patient was critically ill due to: chest pain My treatment and management were: nstemi at 0455 RPT #: [id number] END OF REPORT [facility] 2024-05-24 09:41:00 [id number] [facility] [address] [place] [address] PATIENT NAME: ELVIS FREEMAN ADMIT DATE: 05/05/24 ACCOUNT NO: [id number] ROOM NO: P.0405 AGE: 64 REPORT TYPE: DISCHARGE SUMMARY SEX: F ADMITTING PHYSICIAN:Concepcion Tierney MD ATTENDING PHYSICIAN:Concepcion Tierney MD ADMISSION DATE: 05/05/2024 22:47:00 DISCHARGE DATE: 05/11/2024 14:46:00 FINAL DIAGNOSES: 1. End-stage renal disease, on hemodialysis Tuesday, Tuesday, Tuesday. 2. Anemia of CKD. 3. Coronary artery disease. 4. Hypertension. 5. Hyperlipidemia. 6. Chronic diastolic heart failure. MEDICATIONS AT DISCHARGE: Per JUL. DISPOSITION: To home. CONDITION ON DISCHARGE: Stable. LEVEL OF CARE: Full code. DIET: Renal. ACTIVITY: As tolerated. CONSULTANTS: 1. Dr. Pruitt. 2. Dr. Vanessa. 3. Alexandro. 3. Dr. Carrington. PROCEDURE: None. COMPLICATIONS: None. COURSE OF HOSPITALIZATION: The patient was hospitalized. Seen by Cardiology, seen by Nephrology and Infectious Disease consulted . Condition improved. The patient tolerated hemodialysis. The patient was chest pain free. The patient was seen and cleared by nephrology and cardiology and discharged home with outpaient follow up. Dictated By: Concepcion Tierney MD Date Dictated: 05/24/2024 09:41:10 PATIENT NAME: ELVIS FREEMAN Date Transcribed: 05/24/2024 11:25:47 AMY/CHARLES/RILEY/DEBRA Receipt ID: [id number] Authenticated and Edited by Concepcion Tierney MD On 05/25/24 1:38:41 AM at 0141 PATIENT NAME: ELVIS FREEMAN [facility] 2024-05-15 13:50:00 [id number] [place] [address] PATIENT NAME: ELVIS FREEMAN ADMIT DATE: 05/05/24 ACCOUNT NO: [id number] ROOM NO: P.[facility] AGE: 64 REPORT TYPE: eECHOCARDIOGRAM REPORT SEX: F ADMITTING PHYSICIAN: Concepcion Tierney MD ATTENDING PHYSICIAN: Concepcion Tierney MD *[facility]* [address] [place] [address] Transthoracic Echocardiogram Patient: Elvis Freeman Study Date: 05/07/2024 BP: 183 / 69 URN: [id number] Location: : 1960 Age: 64 Gender: F Height: 63 in / 160 cm Weight: 153 lb / 69.4 kg BMI/BSA: 27.1 kg/m 2 / 1.77 m 2 *Ordering Physician: * Walker Woods 1 *Interpreting Physician: * Celestino Vanessa MD *Environmental Sampling Technician: Shauna Bray -------- Indications: Pericardial effusion. -------- Study data: Transthoracic echocardiogram. Procedure: A transthoracic echocardiogram was performed. Images were obtained using a EZbuilding[employer] E Portable cardiac ultrasound machine. Image quality was good. The study was technically limited due to poor acoustic window availability, poor patient compliance, and restricted patient mobility. Complete 2D, complete spectral Doppler, color Doppler, and tissue Doppler. Location: Bedside. Patient status: Inpatient. Patient room number: 405. Study status: Routine. Heart rate: 133 bpm. Rhythm: Normal sinus rhythm. -------- Findings Left ventricle: The cavity size is normal. Wall thickness is normal. Systolic function is normal. The estimated ejection fraction is 55-60%. Wall PATIENT NAME: ELVIS FREEMAN motion is normal; there are no regional wall motion abnormalities. Grade I diastolic dysfunction. Right ventricle: The cavity size is normal. Systolic function is normal. Systolic pressure is moderately to severely increased. Ventricular septum: There is diastolic flattening and systolic flattening. Left atrium: The atrium is normal in size. Right atrium: The atrium is dilated. Aorta: Aortic root: The root is normal-sized. Aortic valve: The valve is structurally normal. The valve is trileaflet. There is no evidence of stenosis. There is no regurgitation. Mitral valve: The valve is structurally normal. There is no evidence of stenosis. There is mild regurgitation. Tricuspid valve: The valve is structurally normal. There is moderate-severe regurgitation. Pulmonic valve: The valve is structurally normal. There is no regurgitation. Pericardium: A small pericardial effusion is identified. Pulmonary arteries: The main pulmonary artery is normal-sized. Systemic veins: Inferior vena cava: The IVC is large. Respirophasic diameter changes are blunted (< 50%). -------- Measurements Left ventricle Value Ref 05/06/2024 TISH, LAX 4.2 cm 3.8 - 5.2 3.6 ESD, LAX 2.8 cm 2.2 - 3.5 2.6 FS, LAX 34 % 29 IVS, ED 1.1 cm 0.6 - 0.9 1.1 ESD 2.8 cm 2.2 - 3.5 2.6 FS 34 % 29 PW, ED 1.1 cm 0.6 - 0.9 1.0 IVS/PW, ED 1.01 --------- 1.16 EF 63 % 54 - 74 57 EF, MM on 2D Teich. 63 % >=55 57 E', lat víctor, TDI 4.4 cm/sec >=10.0 5.3 E/e', lat víctor, TDI 38 <=13 29 E', med víctor, TDI 7.7 cm/sec >=7.0 7.1 E/e', med víctor, TDI 22 --------- 21 E', avg, TDI 5.7 cm/sec --------- 6.6 E/e', avg, TDI 28 <=14 22 LVOT Value Ref 05/06/2024 Diam, S 1.75 cm --------- 1.84 Area 2.4 cm 2 --------- 2.7 Peak kayla, S 0.88 m/sec --------- 1.08 Mean kayla, S 0.61 m/sec --------- 0.68 VTI, S 16.3 cm --------- 19.7 Peak grad, S 3 mm Hg --------- 5 Mean grad, S 2 mm Hg --------- 2 SV 39 ml --------- 52 SV/bsa 22 ml/m 2 --------- 30 PATIENT NAME: ELVIS FREEMAN Right ventricle Value Ref 05/06/2024 TAPSE, 2D 1.7 cm >=1.7 TAPSE, MM 1.7 cm >=1.7 Left atrium Value Ref 05/06/2024 LA ID 3.9 cm --------- 4.3 AP dim, ES 3.9 cm 2.7 - 3.8 4.3 AP dim ES, LAX 3.9 cm 2.7 - 3.8 4.3 SI dim ES, LAX 3.9 cm --------- 4.3 LA/Ao root ratio 1.41 --------- 1.32 AP dim, ES MM 3.9 cm 2.7 - 3.8 4.3 LA/Ao root ratio, MM 1 --------- 1 Aortic valve Value Ref 05/06/2024 Peak v, S 1.6 m/sec --------- 1.2 Mean v, S 1.02 m/sec --------- 0.81 VTI, S 27.4 cm --------- 21.2 Mean grad, S 5 mm Hg --------- 3 Peak grad, S 9.9 mm Hg --------- 5.8 LVOT/AV, VTI ratio 0.6 --------- 0.93 KARLA, VTI 1.34 cm 2 --------- 2.23 LVOT/AV, Vpeak ratio 0.56 --------- 0.9 KARLA, Vmax 1.37 cm 2 --------- 2.31 Mitral valve Value Ref 05/06/2024 Mean v, D 1.1 m/sec --------- 0.84 Peak E 0.06 m/sec --------- 0.06 Peak A 1.23 m/sec --------- 1.24 VTI leaflet coapt 34.4 cm --------- 38.1 MiV/LVOT VTI 2.1 --------- 1.9 Decel time 181 ms --------- 224 Mean grad, D 6 mm Hg --------- 4 Peak grad, D 14.3 mm Hg --------- 9.3 Peak E/A ratio 1.35 --------- 1.11 Tricuspid valve Value Ref 05/06/2024 TR peak v 3.5 m/sec <=2.8 3.2 Peak RV-RA grad, S 48 mm Hg --------- 40 Aortic root Value Ref 05/06/2024 Root diam 2.8 cm 2.5 - 4.0 3.2 Root diam, ED MM 3.9 cm --------- 4.3 -------- Conclusions Summary: 1. Left ventricle: The cavity size is normal. Wall thickness is normal. Systolic function is normal. The estimated ejection fraction is 55-60%. Wall motion is normal; there are no regional wall motion abnormalities. Grade I diastolic dysfunction. 2. Right ventricle: Systolic pressure is moderately to severely increased. PATIENT NAME: ELVIS FREEMAN 3. Right atrium: The atrium is dilated. 4. Tricuspid valve: There is moderate-severe regurgitation. 5. Pericardium, extracardiac: A small pericardial effusion is identified. Electronically signed by Celestino Vanessa MD 05/15/2024 13:50 at 1350 PATIENT NAME: ELVIS FREEMAN [facility] 2024-05-13 12:08:00 [phone] [facility] [address] [place] [id number] PATIENT NAME: ELVIS FREEMAN ADMIT DATE: 05/05/24 ACCOUNT NO: [id number] ROOM NO: P.0405 AGE: 64 REPORT TYPE: eECHOCARDIOGRAM REPORT SEX: F ADMITTING PHYSICIAN: Concepcion Tierney MD ATTENDING PHYSICIAN: Concepcion Tierney MD *[facility]* [address] [place] [address] Transthoracic Echocardiogram Patient: Elvis Freeman Study Date: 05/06/2024 BP: 106 / 55 URN: [id number] Location: : 1960 Age: 64 Gender: F Height: 63 in / 160 cm Weight: 153 lb / 69.4 kg BMI/BSA: 27.1 kg/m 2 / 1.77 m 2 *Ordering Physician: * Concepcion Tierney *Interpreting Physician: * Celestino Vanessa MD *Environmental Sampling Technician: * Shauna Cruz -------- Indications: Congestive Heart Failure. -------- Study data: Transthoracic echocardiogram. Procedure: A transthoracic echocardiogram was performed. Images were obtained using a [employer] E Portable cardiac ultrasound machine. Image quality was adequate. Complete 2D, complete spectral Doppler, color Doppler, and tissue Doppler. Location: Bedside. Patient status: Inpatient. Patient room number: 405. Study status: Routine. Heart rate: 88 bpm. -------- Findings Left ventricle: The cavity size is normal. Wall thickness is normal. Systolic function is normal. The estimated ejection fraction is 55-60%. Wall motion is normal; there are no regional wall motion abnormalities. Left ventricular diastolic function parameters are normal for the patient's age. PATIENT NAME: ELVIS FREEMAN Right ventricle: The cavity size is normal. Systolic function is normal. Systolic pressure is increased. Left atrium: The atrium is mildly dilated. Right atrium: The atrium is normal in size. Aorta: Aortic root: The root is normal-sized. Aortic valve: The valve is structurally normal. The valve is trileaflet. There is no evidence of stenosis. There is no regurgitation. Mitral valve: The annulus is moderately calcified. There is no evidence of stenosis. There is mild regurgitation. Tricuspid valve: The valve is structurally normal. There is no regurgitation. Pulmonic valve: The valve is structurally normal. There is trivial regurgitation. Pericardium: A trivial pericardial effusion is identified. There is a moderate-sized right pleural effusion. Pulmonary arteries: The main pulmonary artery is normal-sized. Systemic veins: Inferior vena cava: The IVC is large. -------- Measurements Left ventricle Value Ref TISH, LAX 3.6 cm 3.8 - 5.2 ESD, LAX 2.6 cm 2.2 - 3.5 FS, LAX 29 % 27 - 45 TISH major ax, A2C 8.0 cm --------- ESD major ax, A2C 6.4 cm --------- IVS, ED 1.1 cm 0.6 - 0.9 ESD 2.6 cm 2.2 - 3.5 FS 29 % 27 - 45 PW, ED 1.0 cm 0.6 - 0.9 IVS/PW, ED 1.16 --------- EF 57 % 54 - 74 EF, MM on 2D Teich. 57 % >=55 E', lat víctor, TDI 5.3 cm/sec >=10.0 E/e', lat víctor, TDI 29 <=13 E', med víctor, TDI 7.1 cm/sec >=7.0 E/e', med víctor, TDI 21 --------- E', avg, TDI 6.6 cm/sec --------- E/e', avg, TDI 22 <=14 LVOT Value Ref Diam, S 1.84 cm --------- Area 2.7 cm 2 --------- Peak kayla, S 1.08 m/sec --------- Mean kayla, S 0.68 m/sec --------- VTI, S 19.7 cm --------- Peak grad, S 5 mm Hg --------- Mean grad, S 2 mm Hg --------- SV 52 ml --------- SV/bsa 30 ml/m 2 --------- PATIENT NAME: ELVIS FREEMAN Left atrium Value Ref LA ID 4.3 cm --------- AP dim, ES 4.3 cm 2.7 - 3.8 AP dim ES, LAX 4.3 cm 2.7 - 3.8 SI dim ES, LAX 4.3 cm --------- Vol/bsa, S 38 ml/m 2 16 - 34 Vol, ES, 2-p 72 ml --------- Vol/bsa, ES, 2-p 40 ml/m 2 16 - 34 LA/Ao root ratio 1.32 --------- AP dim, ES MM 4.3 cm 2.7 - 3.8 LA/Ao root ratio, MM 1 --------- Aortic valve Value Ref Peak v, S 1.2 m/sec --------- Mean v, S 0.81 m/sec --------- VTI, S 21.2 cm --------- Mean grad, S 3 mm Hg --------- Peak grad, S 5.8 mm Hg --------- LVOT/AV, VTI ratio 0.93 --------- KARLA, VTI 2.23 cm 2 --------- LVOT/AV, Vpeak ratio 0.9 --------- KARLA, Vmax 2.31 cm 2 --------- Mitral valve Value Ref Mean v, D 0.84 m/sec --------- Peak E 0.06 m/sec --------- Peak A 1.24 m/sec --------- VTI leaflet coapt 38.1 cm --------- MiV/LVOT VTI 1.9 --------- Decel time 224 ms --------- Mean grad, D 4 mm Hg --------- Peak grad, D 9.3 mm Hg --------- Peak E/A ratio 1.11 --------- MR peak v 4.52 m/sec --------- Pulmonic valve Value Ref TN peak v 0.88 m/sec --------- TN grad, ED 3 mm Hg --------- Tricuspid valve Value Ref TR peak v 3.2 m/sec <=2.8 Peak RV-RA grad, S 40 mm Hg --------- Aortic root Value Ref Root diam 3.2 cm 2.5 - 4.0 Root diam, ED MM 4.3 cm --------- Ascending aorta Value Ref AAo AP diam, S 2.8 cm --------- -------- Conclusions Summary: PATIENT NAME: ELVIS FREEMAN 1. Left ventricle: The cavity size is normal. Wall thickness is normal. Systolic function is normal. The estimated ejection fraction is 55-60%. Wall motion is normal; there are no regional wall motion abnormalities. Left ventricular diastolic function parameters are normal for the patient's age. 2. Right ventricle: Systolic pressure is increased. 3. Left atrium: The atrium is mildly dilated. 4. Mitral valve: The annulus is moderately calcified. 5. Pericardium, extracardiac: There is a moderate-sized right pleural effusion. Electronically signed by Celestino Vanessa MD 05/13/2024 12:08 at 1208 PATIENT NAME: ELVIS FREEMAN [facility] 2024-05-13 06:44:00 [phone] [facility] [address] [place] [address] [place] [address] PATIENT NAME: ELVIS FREEMAN ADMIT DATE: 05/05/24 ACCOUNT NO: [id number] ROOM NO: P.0405 AGE: 64 REPORT TYPE: 360 - QUERY RESPONSE DOCUMENT SEX: F ADMITTING PHYSICIAN:Concepcion Tierney MD ATTENDING PHYSICIAN:Concepcion Tierney MD Provider Query QUERY TEXT: Clarification Diagnostic Test 360MD Query related questions should be directed to: [facility] Coding Query Helpline Please clarify the condition or diagnosis for the clinical / diagnostic findings noted within the clinical indicators. HYPONATREMIA SIADH INSIGNIFICANT UNABLE TO DETERMINE The patient's Clinical Indicators include: SODIUM 134 L Cardiology Progress Notes 05/07/2024 (4) SODIUM 134 L Nephrology Progress Note 05/07/2024 (4) SODIUM 132 L Nephrology Progress Note 05/09/2024 (5) SODIUM 132 L Cardiology Progress Notes 05/09/2024 (5) HEPARIN SODIUM,PORCINE 2500 UNIT IV ASDIR PRN HEPARIN SODIUM,PORCINE 5000 UNIT IV ASDIR TN Nephrology Progress Note 05/07/2024 (4) Options provided: -- Respond - Create new note now -- Disagree - Not applicable / Not valid -- Disagree - Clinically unable to determine / Unknown -- Assign to another provider QUERY RESPONSE: hyponatremia POA Query created by: FARIDA SNIDER on 05/12/2024 11:44 AM at 0644 PATIENT NAME: ELVIS FREEMAN [facility] 2024-05-11 17:14:00 [phone] [address] PATIENT NAME: ELVIS FREEMAN ADMIT DATE: 04/30/24 ACCOUNT NO: [id number] ROOM NO: [id number] AGE: 64 REPORT TYPE: 360 - QUERY RESPONSE DOCUMENT SEX: F ADMITTING PHYSICIAN: Winifred Marion MD ATTENDING PHYSICIAN: Winifred Marion MD Provider Query QUERY TEXT: Clarification Infectious Status POA 360MD Query related questions should be directed to: [facility] Coding Query Hotline Based on your clinical judgment, please clarify the condition(s) that represent(s) the clinical indicators listed below and if the condition(s) are present on admission (POA). The following definitions are provided based on industry literature and in collaboration with [facility] Clinical Services Group for your reference only: --Localized Infection - An infection that affects only one organ or body part (e.g., UTI, Pneumonia) --Bacteremia - Nonspecific laboratory finding of bacteria in the blood --Sepsis - A presumed or confirmed systemic response to infectious process with >2 clinical indicators such as: Temperature >38.3C or <36.0C, tachycardia, > 20 respiratory rate, WBC >12,000 or < 4,000 or > 10% bands --Severe Sepsis - Sepsis with additional clinical indicators such as Organ failure with any of the following: systolic BP < 90 or MAP < 65 or SBP decrease more 40 mm Hg from last recorded SBP considered normal for patient, Creatinine > 2.0, urine output < 0.5 ml/kg/hour for 2 hours, Bilirubin > 2 mg/dL, platelet count < 100,000, INR > 1.5, PTT > 60 sec, lactate > 2 mmol/L --Septic Shock - Severe Sepsis with Lactic acid > 4 mmol/L or persistent hypotension The patient's Clinical Indicators include: Pulse 118 04/29 0442- ED notes on 04/30/24 Resp 27 04/29 09- ED notes on 04/30/24 Hypotension-Int. Cardiology Progress Note 05/01/2024 Community acquired pneumonia-Hospitalist Progress Note 05/02/2024 Acute hypoxemic respiratory failure- HP on 04/29/24 cefTRIAXone SODIUM 2000 MG VIAL-MAR Options provided: -- Sepsis, Please specify POA status (i.e., Y=Yes, N=No, W=Unable to clinically determine) and causative organism if known. -- Severe Sepsis, Please specify POA status (i.e., Y=Yes, N=No, W=Unable to clinically determine) and causative organism if known. -- Severe Sepsis with septic shock, Please specify POA status (i.e., Y=Yes, N=No, W=Unable to clinically determine) and causative organism if known. -- Localized infection, Please specify the infection and POA status (i.e., Y=Yes, N=No, W=Unable to clinically determine). -- Other - I will add my own diagnosis -- Disagree - Not applicable / Not valid -- Disagree - Clinically unable to determine / Unknown -- Assign to another provider QUERY RESPONSE: The patient has severe sepsis. Y Query created by: Yusef Domínguez on 05/11/2024 5:01 AM at [id number] PATIENT NAME: ELVIS FREEMAN [facility] 2024-05-11 12:49:00 [facility] ([facility]) Med Order Sheet REPORT #: [id number] REPORT STATUS: Signed DATE: 05/11/24 TIME: 1249 PATIENT: ELIVS FREEMAN UNIT #: [id number] ROOM #: P.0405 BED: A : 61 AGE: 64 SEX: F ATTEND: Concepcion Tierney MD ADM AUTHOR: Concepcion Tierney MD ATTENT ION *EDITS and/or ADDENDA must be made in Patient Keeper for this note. * * Edits and ammendments created in [facility] are not visible * * in Patient Keeper or the legal medical record ([facility]). * Discharge Medication Reconciliation DISCHARGE MEDICATION LIST Amiodarone Tab (Cordarone Tab) Dose: 200 MG PO DAILY Apixaban Tab (Eliquis Tab) Dose: 5 MG PO BID bumetanide tablet Dose: 2 MG PO DAILY Clopidogrel Tab (Plavix Tab) Dose: 75 MG PO DAILY Colchicine Tab (Colcrys Tab) Dose: 0.3MG PO MoWeFr@1600, Disp: 10 tablet, Refills: 0 Doxycycline Monohydrate Cap (Monodox Cap) Dose: 100MG PO Q12HR, Disp: 20 capsule, Refills: 0 Ezetimibe Tab (Zetia Tab) Dose: 10 MG PO DAILY Gabapentin Cap (Neurontin Cap) Dose: 200 MG PO BID 9A 5P Lactulose Oral Liquid (Enulose Oral Liquid) Dose: 30ML PO tid, Disp: 250 mL, Refills: 0 Methocarbamol Tab (Robaxin Tab) Dose: 500 MG PO QID Novolin 70/30 susp (insulin NPH and regular human) Dose: 15 UNITS SubQ BID AC Rosuvastatin Tab (Crestor Tab ) Dose: 20 MG PO DAILY 1700 Sevelamer Carbonate Tab (Renvela Tab) Dose: 800 MG PO TID MEALS STOPPED HOME MEDICATIONS Dc'd: Furosemide Tab (Lasix Tab) 40 MG PO BID (BID ON NON DIALYSIS DAYS ONLY (SPECIFICALLY TUESDAY, ...) STOPPED HOSPITAL MEDICATIONS Dc'd: Acetaminophen Tab (Tylenol Tab) 650MG PO Q4H PRN temp greater than 100f/37.8cDc'd: Albuterol/Ipratrop Neb Soln (Duoneb Neb Soln) 3ML Neb RTQ4H PRN wheezing / shortness of breathDc'd: Dextrose 50% 50 ml Syringe (D50W 50 ml Syringe) 25ML IV ASDIR PRN hypoglycemiaDc'd: diphenhydrAMINE Cap (Benadryl Cap) 25MG PO Q6H PRN itchingDc'd: Docusate Sodium Cap (Colace Cap) 100MG PO BIDDc'd: Glucagon Inj (Glucagon Inj) 1MG IM ASDIR PRN hypoglycemia if no iv/enteralDc'd: guaiFENesin/DM Syrup (Robitussin DM Oral Liquid) 5ML PO Q6H PRN coughDc'd: hydrALAZINE Inj (Apresoline Inj) 10MG IV Q6H PRN sbp greater than 160Dc'd: Insulin (Lispro) Inj (AdmeLOG Inj) INSULIN SLIDING SCALE SubQ C MEALS HSDc'd: Ondansetron Inj (Zofran Inj) 4MG IV Q4H PRN nausea and vomitingDc'd: Oseltamivir Cap (Tamiflu Cap) 30MG PO MoWeFr@1600Dc'd: Polyethylene Glycol Powder (Miralax Powder) 1PKT PO DAILYDc'd: Retacrit Inj (Epoetin Benitez-Epbx Inj) 90295VNRO IV MOWEFR@1700Dc'd: Sodium Ferric Gluconate Inj (Nulecit Inj) 125MG 110 MLS/HR IV DAILY X 8 dosesin Sodium Chloride 0.9% (NS) 100ML (Total 110 ML) Dc'd: traMADol Tab (Ultram Tab) 50MG PO Q6H PRN pain scale 4-6 at 1249 ATTENT ION *EDITS and/or ADDENDA must be made in Patient Keeper for this note. * * Edits and ammendments created in [facility] are not visible * * in Patient Keeper or the legal medical record ([facility]). * RPT #: [id number] END OF REPORT FORMERLY [facility] 2024-05-11 12:21:00 [facility] ([facility]) Cardiology Progress Notes REPORT #: [id number] REPORT STATUS: Signed DATE: 05/11/24 TIME: 1221 PATIENT: ELVIS FREEMAN UNIT #: [id number] ROOM #: [id number] BED: A : 61 AGE: 64 SEX: F ATTEND: Concepcion Tierney MD [facility] AUTHOR: Walker Woods DO CF1 ATTENT ION *EDITS and/or ADDENDA must be made in Patient Keeper for this note. * * Edits and ammendments created in [facility] are not visible * * in Patient Keeper or the legal medical record ([facility]). * Attending: Celestino Vanessa MD 05/17/24 12:06 I have personally seen and examined the patient independently, and reviewed the patient's history, exam, and all cardiac and laboratory data on 05/11/24. I agree with the history, physical, and the assessment and plan as outlined by Walker Todd DO, Cardiovascular Fellow. Note Date: 05/11/24 12:21 -- ASSESSMENT/PLAN -- GENERAL ASSESSMENT: The patient is a 64-year-old female with hypertension, diabetes, paroxysmal Afib (on Eliquis), heart failure with preserved ejection fraction (HFpEF), ESRD, who was admitted to [facility] on 04/29/2024 with worsening shortness of breath. She also has a history of coronary artery disease and has undergone PCI [place] in the past. She was found to have a moderate circumferential pericardial effusion septal shift. 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 Labs on admission there - NT-ProBNP 7204, Trop I 97.7, INR 3.01, Hgb 7.6, WBC 12.8, plt 483, Cr 2.3. CRP 3.8, ESR 62. ASSESSMENT / PLAN: 1: Chest pain A/P: -Trop 194 peak at [place], downtrended -EKG low voltage QRS, no signs of acute ST changers -Pericardial effusion noted on Echo. LVEF 50-55%, Grade 2 dd, moderate pericardial effusion, left pleural effusion, mild MR, mild TR. 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 -continue home bumex Patient cleared for discharge from cardiology standpoint and follow up outpatient with Dr. Vanessa. Discussed with Dr. Vanessa. -- SUBJECTIVE -- CHIEF COMPLAINT: chest pain HPI: No acute events overnight. Denies CP, dyspnea, palpitations. Pt s/p LHC, RHC yesterday. REVIEW OF SYSTEMS: Comment 10 Point ROS negative unless otherwise stated. -- EXAM -- VITALS (05/10 12:21 - 05/11 12:21): Temperature source: Oral Temperature C: 36.9 (36.6 - 36.9) Pulse Rate: 68 (64 - 77) Respiratory rate: 16 (9 - 31) Blood pressure: 151/89 (111/54 - 160/92) Blood pressure source: Monitor Temperature F: 98 (97.7 - 98) EXAM: Other Constitutional: Well developed, well nourished patient, in no acute distress. Derm/Integumentary: Warm and dry with no rashes, sores, or lesions. Mouth: Mucosa moist and pink with no lesions. Neck: supple with no masses, no thyromegaly, No JVD. Respiratory: Clear to auscultation. Heart: S1S2+, RRR, + systolic murmur Gastrointestinal: + Bowel Sounds all quadrants. Soft, nontender with no masses or organomegaly. Musculoskeletal: Equal strength in all extremities. No weakness. Neurology: Alert and oriented X 3. Calm, cooperative affect. No focal deficits. Extremities: + peripheral pulses. No clubbing, cyanosis. No lower extremity edema. Skin: Groin access site w/o signs of hematoma or bleeding -- DATA -- MEDICATIONS EPOETIN BENITEZ-EPBX 26511 UNIT IV MOWEFR@1700 LACTULOSE 30 ML PO Q6H DOCUSATE SODIUM 100 MG PO BID INSULINS,ISOPH 70:REG 30,H REC 7 UNIT SUBQ BID AC ASPIRIN 81 MG PO DAILY BUMETANIDE 2 MG PO DAILY clopidogreL 75 MG PO DAILY SEVELAMER CARBONATE 800 MG PO TID MEALS DEXTROSE 50%-WATER 25 ML IV ASDIR (PRN) polyethylene glycoL 3350 1 PKT PO DAILY AMIODARONE HCL 200 MG PO DAILY EZETIMIBE 10 MG PO DAILY GLUCAGON 1 MG IM ASDIR (PRN) diphenhydrAMINE HCL 25 MG PO Q6H PRN OSELTAMIVIR PHOSPHATE 30 MG PO MoWeFr@1600 methocarbamoL 500 MG PO QID GABAPENTIN 200 MG PO BID 9A 5P DOXYCYCLINE MONOHYDRATE 100 MG PO Q12HR ROSUVASTATIN CALCIUM 20 MG PO DAILY 1700 IPRATROPIUM/ALBUTEROL SULFATE 3 ML NEB RTQ4H PRN traMADol HCL 50 MG PO Q6H PRN ACETAMINOPHEN 650 MG PO Q4H PRN hydrALAZINE HCL 10 MG IV Q6H PRN INSULIN LISPRO INSULIN SLIDING SCALE SUBQ C MEALS HS ONDANSETRON HCL/PF 4 MG IV Q4H PRN COLCHICINE 0.3 MG PO MoWeFr@1600 guaiFENesin/D-METHORPHAN 5 ML PO Q6H PRN SOD FERRIC GLUC COMPLX/SUCROSE with/in SODIUM CHLORIDE 100 mL BAG 125 MG IV DAILY LAB RESULTS PTT (05/11/24 04:04) THROMBOPLASTIN TIME PARTIAL 38.9 D H CBC W/AUTO DIFF (05/11/24 04:04) EOSINOPHIL # 0.05 WHITE BLOOD CELL 7 RED BLOOD CELL 3.19 L HEMOGLOBIN 7.6L L BASOPHIL % 0.7 NEUTROPHIL # 3.66 LYMPHOCYTE # 2.61 MONOCYTE # 0.58 RED CELL DISTRIBUTION WIDTH 17.7 H PLATELET COUNT 350 BASOPHIL # 0.05 MEAN PLATELET VOLUME 10.8 HEMATOCRIT 27.0L L MEAN CELL VOLUME 84.6 MEAN CELL HGB 23.8 L MEAN CELL HGB CONCENTRATION 28.1 L NEUTROPHIL % 52.1 LYMPHOCYTE % 37.2 MONOCYTE % 8.3 EOSINOPHIL % 0.7 GLU BED (05/11/24 07:23) GLUBED 124 H -- ATTESTATION -- Care Activities / Care Coordination I have reviewed the history and repeated the desai elements I have seen and examined this patient I have reviewed the progress in the clinical course since the last examination I have discussed the patient's condition with other members of the care team at 1206 at 1206 ATTENT ION *EDITS and/or ADDENDA must be made in Patient Keeper for this note. * * Edits and ammendments created in [facility] are not visible * * in Patient Keeper or the legal medical record ([facility]). * [facility] #: [id number] END OF REPORT [facility] 2024-05-11 11:18:00 THIS REPORT HAS BEEN APPENDED [facility] ([facility]) Operative Report REPORT #: [id number] REPORT STATUS: Signed DATE: 05/11/24 TIME: 1118 PATIENT: ELVIS FREEMAN UNIT #: [id number] ROOM #: P.0405 BED: A : 61 AGE: 64 SEX: F ATTEND: Concepcion Tierney MD [facility] AUTHOR: Ceelstino Vanessa MD ATTENT ION *EDITS and/or ADDENDA must be made in Patient Keeper for this note. * * Edits and ammendments created in [employer] are not visible * * in Patient Keeper or the legal medical record ([facility]). * Note Date: 05/11/24 11:18 -- OPERATION -- SURGERY START DATE/TIME 05/10/2024 11:32 PRE-OPERATIVE DIAGNOSIS: 1. Chest pain. 2. Unstable angina. 3. Heart failure with preserved ejection fraction. 4. 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 POST-OPERATIVE DIAGNOSIS: 1. No significant pericardial effusion seen on transthoracic echocardiogram. 2. Hemodynamic tracings were not significant for constrictive pericarditis. 3. Severe coronary artery disease status post PCI of left circumflex artery. INDICATION(S): Ms. Freeman Is a 64-year-old female With extensive risk factors that include hypertension, diabetes, paroxysmal A-fib, heart failure with preserved eject fraction, ESRD who is admitted yet again - with worsening shortness of breath and chest pain to the hospital. 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 NAME OF PROCEDURE: 1. Moderate sedation. 2. Ultrasound guided access of right femoral artery. 3. Selective coronary angiogram x 2. 4. Left heart catheterization. 5. Ultrasound-guided access of the right femoral vein. 6. Right heart catheterization. 7. Invasive hemodynamic measurement for evaluation of constrictive pericarditis/constriction study/simultaneous measurement of LV and RV hemodynamic tracings. 8. iFR of left anterior descending artery (attempted). 9. Intravascular ultrasound of the AV groove left circumflex artery. 10. Percutaneous coronary intervention of the AV groove left circumflex artery. 11. Percutaneous coronary intervention of the obtuse marginal artery. 12. Percutaneous closure of the right femoral artery using a Perclose device. Time out completed:: Yes Surgeon:Celestino Vanessa MD PLANNING RN(S): Dr. Tra Mao ANESTHESIA: Moderate sedation ESTIMATED BLOOD LOSS 5 mls FINDINGS: Selective coronary angiogram: 1. Right coronary artery: The right coronary artery is a codominant artery. There is a stent in the mid RCA that has about 20 to 30% in-stent restenosis. 2. Left main artery: Normal. 3. Left anterior descending artery: The proximal LAD has a 40 to 50% lesion. 4. Left circumflex artery: The Left circumflex artery is a codominant artery. There is a mid bifurcation lesion. AV groove left circumflex artery has a 95 % lesion in the ostium that is likely the culprit lesion. The obtuse marginal also has a 70% lesion in the proximal segment. Left heart catheterization: 1. LVEDP = 16 mm Hg. 2. No significant aortic valve gradient. Right heart cath/Constriction study: 1. Simultaneous LV/RV hemodynamic tracings did not demonstrate significant respiratory interdependence. Intravascular ultrasound (IVUS) 1. IVUS of the left circumflex artery demonstrated an extremely significant lesion in the ostium of the AV groove circumflex. This is a bifurcation lesion that is close to another obtuse marginal artery. The lesion is mostly fibrotic in nature with some degree of calcification. The distal reference diameter is 2.5 mm. Percutaneous coronary intervention 1. Bifurcation PCI of the AV groove left circumflex artery using a 2.5 x 18 millimeter Bjorn frontier drug-eluting stent that was post-dilated using a 2.5X 10 mm NC balloon at high pressure. We recrossed into the obtuse marginal artery and dilated the left circumflex stent into the obtuse marginal artery using a 2.0 X 10 mm semi-compliant balloon. SPECIMENS(S) REMOVED AND/OR ALTERED: None COMPLICATION(S): None -- DESCRIPTION -- DESCRIPTION OF TECHNIQUE/PROCEDURE: Procedures performed 1. Moderate sedation. 2. Ultrasound guided access of right femoral artery. 3. Selective coronary angiogram x 2. 4. Left heart catheterization. 5. Ultrasound-guided access of the right femoral vein. 6. Right heart catheterization. 7. Invasive hemodynamic measurement for evaluation of constrictive pericarditis/constriction study/simultaneous measurement of LV and RV hemodynamic tracings. 8. iFR of left anterior descending artery (attempted). 9. Intravascular ultrasound of the AV groove left circumflex artery. 10. Percutaneous coronary intervention of the AV groove left circumflex artery. 11. Percutaneous coronary intervention of the obtuse marginal artery. 12. Percutaneous closure of the right femoral artery using a Perclose device. Informed consent was obtained after describing the risk and benefits of the procedure. After proper patient identification, the patient was brought to the cardiac Odd Shoe Examiner. Moderate sedation was initiated and monitored by myself. The right femoral access site was cleaned and draped in a sterile fashion. 1% lidocaine was administered to achieve local anesthesia at the femoral access site. Then, the right femoral artery was cannulated using a 6 Lithuanian sheath under ultrasound guidance. The right femoral vein was also accessed under ultrasound guidance using a micro-puncture needle and the sheath. Then, a 7 Lithuanian sheath was placed in the right femoral vein. Then, we used a PA [place] to measure chamber hemodynamics of PA and RV and RA - Hence performing a right heart catheterization. We parked the [place] in the right ventricle. Heparin was administered. Then, a 5 Lithuanian JR4 diagnostic catheter was used to cross the aortic valve, perform left heart catheterization and measure LVEDP. Then the JR4 diagnostic catheter was used to engage the right coronary artery and perform cine-angiograms of the RCA. We then used a 5 Lithuanian JL 4 diagnostic catheter to engage the left main coronary artery and perform selective coronary angiogram of the left coronary system. We then took a 4 Lithuanian pigtail and parked it in the left ventricle. We then performed a transthoracic echocardiogram that demonstrated almost no significant pericardial effusion. Then, we measured simultaneous waveforms of both LV and RV using 2 separate Manifolds. We also made sure that the patient does breathing and we had a continuous respiratory waveform while measuring the simultaneous LV and RV measurements thus performing the constriction study. Since, the proximal LAD demonstrated a 40 to 50% lesion, we engaged the left main artery using a 6 Lithuanian CLS 3.5 guide. After administrating intracoronary nitroglycerin, we advanced a Diallo Omni wire into the distal LAD to measure iFR. However, we had technical difficulties with the iFR readings as we were not able to calculate the aortic valve waveforms due to fault with the Odd Shoe Examiner equipment. Hence, we elected to proceed with the PCI of the AV groove left circumflex artery. We first used a minamo guidewire to cross the lesion. Then, we used a lavell blue wire to protect the large obtuse marginal artery. Then, we predilated The left circumflex lesion using a 2.0 X 10 mm semi-compliant balloon. We then performed intravascular ultrasound of the left circumflex lesion that demonstrated that The reference diameter was 2.5 mm. We further predilated this lesion using a 2.5 X 10 mm NC balloon and then placed a [place] frontier 2.5 X 18 mm drug-eluting stent. We then post-dilated the stent using a 2.5 X 10 mm NC balloon at high pressures. Since, there is a large obtuse marginal artery that originated very close to this bifurcation lesion, we then re-crossed into the obtuse marginal artery using a lavell blue wire. We then dilated the left circumflex struts into the obtuse marginal and performed POBA of the obtuse marginal lesion using a 2.0 X 10 mm semi-compliant balloon. At the end of the procedure, all equipment were taken out of the patient's body. A Perclose device was used to close the right femoral artery percutaneously. The patient, family and the primary team were updated with the findings of the procedure. Moderate sedation: "I attest that Moderate Conscious sedation was supervised by me, Celestino Vanessa MD. An independent trained observer pushed medications at my direction and monitored the patient's level of consciousness and physiological status throughout. 1.5 mg of intravenous Versed and 75 mcg of intravenous Fentanyl was given to sedate the patient. Start time 11:32 am and End time 12:54 for 82 minutes. There were no complications. See nurses sedation sheet I signed and dated for further details." Findings: Selective coronary angiogram: 1. Right coronary artery: The right coronary artery is a codominant artery. There is a stent in the mid RCA that has about 20 to 30% in-stent restenosis. 2. Left main artery: Normal. 3. Left anterior descending artery: The proximal LAD has a 40 to 50% lesion. 4. Left circumflex artery: The Left circumflex artery is a codominant artery. There is a mid bifurcation lesion. AV groove left circumflex artery has a 95 % lesion in the ostium that is likely the culprit lesion. The obtuse marginal also has a 70% lesion in the proximal segment. Left heart catheterization: 1. LVEDP = 16 mm Hg. 2. No significant aortic valve gradient. Right heart cath/Constriction study: 1. Simultaneous LV/RV hemodynamic tracings did not demonstrate significant respiratory interdependence. Intravascular ultrasound (IVUS) 1. IVUS of the left circumflex artery demonstrated an extremely significant lesion in the ostium of the AV groove circumflex. This is a bifurcation lesion that is close to another obtuse marginal artery. The lesion is mostly fibrotic in nature with some degree of calcification. The distal reference diameter is 2.5 mm. Percutaneous coronary intervention 1. Bifurcation PCI of the AV groove left circumflex artery using a 2.5 x 18 millimeter Bjorn frontier drug-eluting stent that was post-dilated using a 2.5X 10 mm NC balloon at high pressure. We recrossed into the obtuse marginal artery and dilated the left circumflex stent into the obtuse marginal artery using a 2.0 X 10 mm semi-compliant balloon. Plan Patient is doing well since undergoing percutaneous coronary intervention. Denies any further episodes of chest pain or shortness of breath with exertion. 1. Continue with Plavix 75 mg daily and aspirin 81 mg daily for at least 1 year. 2. Continue with high intensity statin. 3. Continue with GDMT for heart failure with preserved ejection fraction. 4. Kindly have the patient follow-up with my clinic in 1 to 2 weeks. 5. The patient will benefit from cardiac rehab -I have counseled the patient extensively about the the importance of cardiac rehab. 6. I have extensive counseled the patient regarding the benefits of lifestyle modifications, weight loss and dietary modifications, I have also counseled the patient regarding the importance of exercise. at 1240 SECTION 2 ADDENDUM 1: 05/11/24 1306 PTKEEPER Plan to discharge on Plavix and apixaban. Stop ASA on discharge. at 1306 ATTENT ION *EDITS and/or ADDENDA must be made in Patient Keeper for this note. * * Edits and ammendments created in [employer] are not visible * * in Patient Keeper or the legal medical record ([facility]). * [facility] #: [id number] END OF REPORT [facility] 2024-05-11 09:04:00 [id number] [facility] [address] [place] [address] [place] [address] PATIENT NAME: ELVIS FREEMAN ADMIT DATE: 05/05/24 ACCOUNT NO: [id number] ROOM NO: P.0405 AGE: 64 REPORT TYPE: PROGRESS NOTE SEX: F ADMITTING PHYSICIAN:Concepcion Tierney MD ATTENDING PHYSICIAN:Concepcion Tierney MD DATE: 05/11/2024 PROGRESS NOTE SUBJECTIVE: Events noted and doing well. Overall, awake and responsive. No chest pain, no fever. Discussed with Dr. Carrington. OBJECTIVE: VITAL SIGNS: Blood pressure 132/60, heart rate 74, temperature 97.9, respiratory rate of 17. HEENT: Head is normocephalic. NECK: Supple. CHEST AND LUNGS: Bilateral breathing sounds. HEART: Normal S1 and S2. ABDOMEN: Soft. EXTREMITIES: No edema. ASSESSMENT AND PLAN: 1. End-stage renal disease, on hemodialysis Tuesday, Tuesday. Dr. Medina, Nephrology following the patient. 2. Influenza. Dr. Carrington following the patient. Completing course of Tamiflu. 3. Level of care. The patient is full code. 4. Cardiomyopathy. Left heart catheterization scheduled. Cardiology following the patient. 5. Anemia of chronic kidney disease. Repeat CBC in the morning. Transfuse packed RBC if hemoglobin less than 7. Dictated By: Concepcion Tierney MD Date Dictated: 05/11/2024 09:04:34 Date Transcribed: 05/11/2024 09:31:36 PREM Receipt ID: [id number] Authenticated by Concepcion Tierney MD On 05/11/2024 01:14:52 PM at 0114 PATIENT NAME: ELVIS FREEMAN [facility] 2024-05-11 05:31:00 [id number] [place] [address] PATIENT NAME: ELVIS FREEMAN ADMIT DATE: 05/05/24 ACCOUNT NO: [id number] ROOM NO: [facility] AGE: 64 REPORT TYPE: PROGRESS NOTE SEX: F ADMITTING PHYSICIAN:Concepcion Tierney MD ATTENDING PHYSICIAN:Concepcion Tierney MD DATE: INFECTIOUS DISEASE PROGRESS NOTE SUBJECTIVE: The patient is afebrile and stable. Last day of antimicrobial agents is today. All notes from the team reviewed, read, acknowledged and understood. Discussed in detail with Dr. Tierney on same page concerning her care. No antibiotic changes are warranted at this time. We will continue to observe. Dictated By: Jose Carrington Jr, MD Date Dictated: 05/11/2024 05:31:56 Date Transcribed: 05/11/2024 05:57:43 NEENA Receipt ID: [id number] Authenticated by Jose Carrington MD On 05/13/2024 07:01:20 AM at 0701 PATIENT NAME: ELVIS FREEMAN [facility] 2024-05-10 15:36:00 [facility] ([facility]) Nephrology Progress Note REPORT #: [id number] REPORT STATUS: Signed DATE: 05/10/24 TIME: 1536 PATIENT: ELVIS FREEMAN UNIT #: [id number] ROOM #: P.0405 BED: A : 61 AGE: 64 SEX: F ATTEND: Concepcion Tierney MD ADM AUTHOR: Kenzie Medina MD ATTENT ION *EDITS and/or ADDENDA must be made in Patient Keeper for this note. * * Edits and ammendments created in [employer] are not visible * * in Patient Keeper or the legal medical record (HPF). * Note Date: 05/10/24 15:36 -- ASSESSMENT/PLAN -- GENERAL ASSESSMENT: The patient is a 64-year-old female with hypertension, diabetes, paroxysmal Afib (on Eliquis), heart failure with preserved ejection fraction (HFpEF), ESRD, who was admitted to [facility] on 04/29/2024 with worsening shortness of breath. She also has a history of coronary artery disease and has undergone PCI [place] in the past. She was found to have a moderate circumferential pericardial effusion septal shift. 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 Labs on admission there - NT-ProBNP 7204, Trop I 97.7, INR 3.01, Hgb 7.6, WBC 12.8, plt 483, Cr 2.3. CRP 3.8, ESR 62. ASSESSMENT / PLAN: 1: Chest pain 2: Coronary artery disease 3: Dependence on renal dialysis 4: ESRD (end stage renal disease) 5: Heart failure with preserved ejection fraction 6: Anemia in chronic kidney disease 7: Essential (primary) hypertension 8: Renal osteodystrophy ADDITIONAL COMMENTS: HD as scheduled -- SUBJECTIVE -- PATIENT NARRATIVE: no acute issues -- EXAM -- VITALS (05/09 15:36 - 05/10 15:36): Blood pressure source: Monitor Temperature C: 36.4 (36.3 - 37.0) Pulse Rate: 68 (64 - 73) Blood pressure: 151/70 (115/58 - 154/87) Respiratory rate: 16 (4 - 31) IOS (05/09 07:00-05/10 07:00): Net-1,264 [id number] Output2,000 Amount taken:100 HD net negative volume balance ml:2,000 HD volume in ml:0 HD volume out ml:2,000 Oral ml:736 EXAM: Other Constitutional: Well developed, well nourished patient, in no acute distress. Derm/Integumentary: Warm and dry with no rashes, sores, or lesions. Mouth: Mucosa moist and pink with no lesions. Neck: supple with no masses, no thyromegaly, No JVD. Respiratory: Clear to auscultation. Heart: S1S2+, RRR, + systolic murmur Gastrointestinal: + Bowel Sounds all quadrants. Soft, nontender with no masses or organomegaly. Musculoskeletal: Equal strength in all extremities. No weakness. Neurology: Alert and oriented X 3. Calm, cooperative affect. No focal deficits. Extremities: + peripheral pulses. No clubbing, cyanosis. No lower extremity edema. -- DATA -- MEDICATIONS EPOETIN BENITEZ-EPBX 24766 UNIT IV MOWEFR@1700 HEPARIN PHARMACY TO MONITOR 1 EACH IV ASDIR LACTULOSE 30 ML PO Q6H DOCUSATE SODIUM 100 MG PO BID INSULINS,ISOPH 70:REG 30,H REC 7 UNIT SUBQ BID AC ASPIRIN 81 MG PO DAILY BUMETANIDE 2 MG PO DAILY clopidogreL 75 MG PO DAILY HEPARIN/SOD CHLOR 0.45% 71920 UNITS IV TITRATE SEVELAMER CARBONATE 800 MG PO TID MEALS DEXTROSE 50%-WATER 25 ML IV ASDIR (PRN) polyethylene glycoL 3350 1 PKT PO DAILY AMIODARONE HCL 200 MG PO DAILY EZETIMIBE 10 MG PO DAILY GLUCAGON 1 MG IM ASDIR (PRN) diphenhydrAMINE HCL 25 MG PO Q6H PRN OSELTAMIVIR PHOSPHATE 30 MG PO MoWeFr@1600 methocarbamoL 500 MG PO QID HEPARIN SODIUM,PORCINE 2500 UNIT IV ASDIR PRN GABAPENTIN 200 MG PO BID 9A 5P DOXYCYCLINE MONOHYDRATE 100 MG PO Q12HR HEPARIN SODIUM,PORCINE 5000 UNIT IV ASDIR PRN ROSUVASTATIN CALCIUM 20 MG PO DAILY 1700 INSULIN LISPRO INSULIN SLIDING SCALE SUBQ AC HS IPRATROPIUM/ALBUTEROL SULFATE 3 ML NEB RTQ4H PRN traMADol HCL 50 MG PO Q6H PRN ACETAMINOPHEN 650 MG PO Q4H PRN ONDANSETRON HCL/PF 4 MG IV Q6H PRN hydrALAZINE HCL 10 MG IV Q6H PRN COLCHICINE 0.3 MG PO MoWeFr@1600 guaiFENesin/D-METHORPHAN 5 ML PO Q6H PRN SOD FERRIC GLUC COMPLX/SUCROSE with/in SODIUM CHLORIDE 100 mL BAG 125 MG IV DAILY LAB RESULTS BASIC METABOLIC PANEL (05/10/24 04:12) CREATININE 3.90H H CALCIUM 8.4 L BLOOD UREA NITROGEN 22 GLOMERULAR FILTRATION RATE 12 L CARBON DIOXIDE 29 GLUCOSE 81 POTASSIUM 4.4 CHLORIDE 101 SODIUM 133L L CBC W/AUTO DIFF (05/10/24 04:12) MEAN PLATELET VOLUME 10.6 BASOPHIL # 0.05 LYMPHOCYTE % 46.0 NEUTROPHIL % 40.2 L WHITE BLOOD CELL 5.8 EOSINOPHIL # 0.05 MONOCYTE # 0.64 LYMPHOCYTE # 2.68 NEUTROPHIL # 2.35 BASOPHIL % 0.9 EOSINOPHIL % 0.9 MONOCYTE % 11.0 H PLATELET COUNT 390 RED CELL DISTRIBUTION WIDTH 17.5 H MEAN CELL HGB CONCENTRATION 28.4 L MEAN CELL HGB 24.2 L MEAN CELL VOLUME 85.2 HEMATOCRIT 28.2L L HEMOGLOBIN 8.0L L RED BLOOD CELL 3.31 L PTT (05/10/24 04:12) THROMBOPLASTIN TIME PARTIAL 273.5 D*H PTT (05/10/24 06:20) THROMBOPLASTIN TIME PARTIAL 119.7 D*H GLU BED (05/10/24 07:36) GLUBED 78 PTT (05/10/24 08:15) THROMBOPLASTIN TIME PARTIAL 70.1 D H ACT (05/10/24 12:20) COAGULATION TIME ACTIVATED 251 H at 1537 ATTENT ION *EDITS and/or ADDENDA must be made in Patient Keeper for this note. * * Edits and ammendments created in [facility] are not visible * * in Patient Keeper or the legal medical record (HPF). * RPT #: [id number] END OF REPORT [facility] 2024-05-10 11:12:00 [facility] ([facility]) Cardiology Clinical Note REPORT #: [id number] REPORT STATUS: Signed DATE: 05/10/24 TIME: 111 PATIENT: ELVIS FREEMAN UNIT #: [id number] ROOM #: P.0405 BED: A : 61 AGE: 64 SEX: F ATTEND: Concepcion Tierney MD ADM AUTHOR: Walker Woods DO CF1 ATTENT ION *EDITS and/or ADDENDA must be made in Patient Keeper for this note. * * Edits and ammendments created in [facility] are not visible * * in Patient Keeper or the legal medical record ([facility]). * Note Date: 05/10/24 11:12 -- NOTATION -- NOTATION: I spoke with Ms. Freeman, with her and Nurse My at bedside present as witnesses, regarding her code status. The patient wishes to change her status to Full Code for the heart cath. I explained the risks and benefits of this decision, she understood and was agreeable with the change. The Resuscitation order change to Full Code was then made in the system. at 1208 at 1208 ATTENT ION *EDITS and/or ADDENDA must be made in Patient Keeper for this note. * * Edits and ammendments created in [facility] are not visible * * in Patient Keeper or the legal medical record ([facility]). * [facility] #: [id number] END OF REPORT [facility] 2024-05-10 07:49:00 [id number] [id number] [place] [address] PATIENT NAME: ELVIS FREEMAN ADMIT DATE: 05/05/24 ACCOUNT NO: [id number] ROOM NO: P.0405 AGE: 64 REPORT TYPE: PROGRESS NOTE SEX: F ADMITTING PHYSICIAN:Concepcion Tierney MD ATTENDING PHYSICIAN:Concepcion Tierney MD DATE: 05/10/2024 INTERNAL MEDICINE PROGRESS NOTE SUBJECTIVE: Events noted and doing well. Tolerated hemodialysis. Awake and responsive. No chest pain, no fever. Discussed with Dr. Melchor at the bedside. OBJECTIVE: VITAL SIGNS: Blood pressure 123/76, heart rate of 84, temperature 97.9, respiratory rate of 14. HEENT: Head normocephalic. NECK: Supple. CHEST AND LUNGS: Bilateral breathing sounds. HEART: Normal S1, S2. ABDOMEN: Soft. EXTREMITIES: No edema. NEUROLOGIC: Awake and alert. ASSESSMENT AND PLAN: 1. End-stage renal disease. On hemodialysis Tuesday, Tuesday. Dr. Medina, Nephrology following the patient. 2. Cardiomyopathy with coronary artery disease. Cardiology consulted. Off heparin drip for now. Cardiology workup is in progress. 3. Advanced liver disease. Ammonia is trending down. Discussed with Dr. Melchor. The patient has outpatient followup with Hepatology, he is aware of these findings. Gastroenterology following the patient. 4. Level of care. The patient remains do not resuscitate, own wishes. Continue supportive care. Dictated By: Concepcion Tierney MD Date Dictated: 05/10/2024 07:49:57 Date Transcribed: 05/10/2024 08:39:06 AMY/CHARLES Receipt ID: [id number] Authenticated by Concepcion Tierney MD On 05/10/2024 07:17:14 PM PATIENT NAME: ELVIS FREEMAN at 0717 PATIENT NAME: ELVIS FREEMAN [facility] 2024-05-10 06:09:00 [id number] [address] [place] [address] PATIENT NAME: ELVIS FREEMAN ADMIT DATE: 05/05/24 ACCOUNT NO: [id number] ROOM NO: P.0405 AGE: 64 REPORT TYPE: PROGRESS NOTE SEX: F ADMITTING PHYSICIAN:Concepcion Tierney MD ATTENDING PHYSICIAN:Concepcion Tierney MD DATE: 05/10/2024 PROGRESS NOTE PROBLEM: Transient elevation of ammonia. SUBJECTIVE: The patient indicates that she is feeling fine. She is not experiencing any abdominal pain. No nausea, no vomiting. OBJECTIVE: VITAL SIGNS: Stable. ABDOMEN: Soft and nontender. No guarding. LABORATORY STUDIES: H and H is 8.0 and 28.2 with a WBC of 5800. Elastography of the liver reveals either normal or F1 status of the liver. ASSESSMENT: The patient shows no evidence of cirrhosis of the liver. Her elastography suggest no evidence of significant fibrosis. Elevation of ammonia was probably of a non-hepatic origin. PLAN: DIAGNOSTIC: None further at this time. THERAPEUTIC: No further intervention planned. PATIENT EDUCATION: The patient advised status of the liver is normal. Dictated By: Deyvi Melchor Jr, MD Date Dictated: 05/10/2024 06:09:05 Date Transcribed: 05/10/2024 07:20:00 [facility] Receipt ID: [id number] Authenticated by Deyvi Melchor MD On 05/11/2024 07:58:50 AM at 0758 PATIENT NAME: ELVIS FREEMAN [facility] 2024-05-10 05:40:00 [id number] [id number] [place] [address] PATIENT NAME: ELVIS FREEMAN ADMIT DATE: 05/05/24 ACCOUNT NO: [id number] ROOM NO: P.0405 AGE: 64 REPORT TYPE: PROGRESS NOTE SEX: F ADMITTING PHYSICIAN:Concepcion Tierney MD ATTENDING PHYSICIAN:Concepcion Tierney MD DATE: INFECTIOUS DISEASE PROGRESS NOTE SUBJECTIVE: Resting comfortably at present time. Day #4 of 5 of the doxycycline and Tamiflu. She may stop the antimicrobial interventions on time. All notes have been reviewed, read, acknowledged, and understood. Discussed in detail with nighttime nursing personnel as well as Dr. Tierney. We will continue to follow while here, but so far so good. Dictated By: Jose Carrington Jr, MD Date Dictated: 05/10/2024 05:40:27 Date Transcribed: 05/10/2024 07:32:39 JCG/NAHUM/BJV Receipt ID: [id number] Authenticated by Jose Carrington MD On 05/13/2024 07:01:17 AM at 0701 PATIENT NAME: ELVIS FREEMAN [facility] 2024-05-09 15:16:00 [facility] ([facility]) Cardiology Progress Notes REPORT #: [id number] REPORT STATUS: Signed DATE: 05/09/24 TIME: 151 PATIENT: ELVIS FREEMAN UNIT #: [id number] ROOM #: P.0405 BED: A : 61 AGE: 64 SEX: F ATTEND: Concepcion Tierney MD ADM AUTHOR: Walker Woods DO 1 ATTENT ION *EDITS and/or ADDENDA must be made in Patient Keeper for this note. * * Edits and ammendments created in [facility] are not visible * * in Patient Keeper or the legal medical record (HPF). * Attending: Celestino Vanessa MD 05/17/24 13:20 I have personally seen and examined the patient independently, and reviewed the patient's history, exam, and all cardiac and laboratory data on 05/09/24. I agree with the history, physical, and the assessment and plan as outlined by Walker Todd DO, Cardiovascular Fellow. Note Date: 05/09/24 15:16 -- ASSESSMENT/PLAN -- GENERAL ASSESSMENT: The patient is a 64-year-old female with hypertension, diabetes, paroxysmal Afib (on Eliquis), heart failure with preserved ejection fraction (HFpEF), ESRD, who was admitted to [facility] on 04/29/2024 with worsening shortness of breath. She also has a history of coronary artery disease and has undergone PCI [place] in the past. She was found to have a moderate circumferential pericardial effusion septal shift. 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 Labs on admission there - NT-ProBNP 7204, Trop I 97.7, INR 3.01, Hgb 7.6, WBC 12.8, plt 483, Cr 2.3. CRP 3.8, ESR 62. ASSESSMENT / PLAN: 1: Chest pain A/P: -Trop 194 peak at [place], downtrended -EKG low voltage QRS, no signs of acute ST changers -Pericardial effusion noted on Echo. LVEF 50-55%, Grade 2 dd, moderate pericardial effusion, left pleural effusion, mild MR, mild TR. -CRP 3.8, ESR 62 at OSH, Started colchicine 0.3mg daily; repeat ESR 44, CRP 5 -Was on Eliquis at home for h/o Afib; holding as INR is supratherapeutic - started heparin drip -Monitor INR -Plan for LHC, RHC, and constriction study tomorrow 2: Coronary artery disease A/P: -As above -On rosuvastatin and will restart Zetia (home med). LDL is 15 -Holding clopidogrel for now as she may need surgery or intervention. -Starting IV Heparin 3: Heart failure with preserved ejection fraction A/P: -BNP 7204; CXR Pulm edema on CXR -On iHD for ESRD and for volume management -Preserved ejection fraction on last Echo. -On oral diuretic at home - can hold for now. -Dr. Melchor was consulted as Ammonia is high as well and Liver US ordered. LFT's normal. Discussed with Dr. Vanessa. -- SUBJECTIVE -- CHIEF COMPLAINT: chest pain HPI: No acute events overnight. Pt denies CP, dyspnea, palpitations. Will plan for LHC, RHC, constrictive studies. REVIEW OF SYSTEMS: Comment 10 Point ROS negative unless otherwise stated. -- EXAM -- VITALS (05/08 15:16 - 05/09 15:16): Temperature C: 36.6 (36.6 - 37.1) Pulse Rate: 73 (64 - 75) Respiratory rate: 11 (8 - 31) Blood pressure source: Monitor Blood pressure: 124/59 (117/58 - 137/91) IOS (05/08 07:00-05/09 07:00): [id number] Number of continent voids:2 Number of times incontinent stool:4 Oral ml:700 EXAM: Other Constitutional: Well developed, well nourished patient, in no acute distress. Derm/Integumentary: Warm and dry with no rashes, sores, or lesions. Mouth: Mucosa moist and pink with no lesions. Neck: supple with no masses, no thyromegaly, No JVD. Respiratory: Clear to auscultation. Heart: S1S2+, RRR, + systolic murmur Gastrointestinal: + Bowel Sounds all quadrants. Soft, nontender with no masses or organomegaly. Musculoskeletal: Equal strength in all extremities. No weakness. Neurology: Alert and oriented X 3. Calm, cooperative affect. No focal deficits. Extremities: + peripheral pulses. No clubbing, cyanosis. No lower extremity edema. -- DATA -- MEDICATIONS EPOETIN BENITEZ-EPBX 63804 UNIT IV MOWEFR@1700 HEPARIN PHARMACY TO MONITOR 1 EACH IV ASDIR LACTULOSE 30 ML PO Q6H DOCUSATE SODIUM 100 MG PO BID INSULINS,ISOPH 70:REG 30,H REC 7 UNIT SUBQ BID AC BUMETANIDE 2 MG PO DAILY HEPARIN/SOD CHLOR 0.45% 09011 UNITS IV TITRATE SEVELAMER CARBONATE 800 MG PO TID MEALS DEXTROSE 50%-WATER 25 ML IV ASDIR (PRN) polyethylene glycoL 3350 1 PKT PO DAILY AMIODARONE HCL 200 MG PO DAILY EZETIMIBE 10 MG PO DAILY GLUCAGON 1 MG IM ASDIR (PRN) diphenhydrAMINE HCL 25 MG PO Q6H PRN OSELTAMIVIR PHOSPHATE 30 MG PO MoWeFr@1600 methocarbamoL 500 MG PO QID HEPARIN SODIUM,PORCINE 2500 UNIT IV ASDIR PRN GABAPENTIN 200 MG PO BID 9A 5P DOXYCYCLINE MONOHYDRATE 100 MG PO Q12HR HEPARIN SODIUM,PORCINE 5000 UNIT IV ASDIR PRN ROSUVASTATIN CALCIUM 20 MG PO DAILY 1700 INSULIN LISPRO INSULIN SLIDING SCALE SUBQ AC HS IPRATROPIUM/ALBUTEROL SULFATE 3 ML NEB RTQ4H PRN traMADol HCL 50 MG PO Q6H PRN ACETAMINOPHEN 650 MG PO Q4H PRN ONDANSETRON HCL/PF 4 MG IV Q6H PRN hydrALAZINE HCL 10 MG IV Q6H PRN COLCHICINE 0.3 MG PO MoWeFr@1600 guaiFENesin/D-METHORPHAN 5 ML PO Q6H PRN SOD FERRIC GLUC COMPLX/SUCROSE with/in SODIUM CHLORIDE 100 mL BAG 125 MG IV DAILY LAB RESULTS CBC W/AUTO DIFF (05/09/24 04:31) NEUTROPHIL % 36.1 L MONOCYTE % 11.9 H LYMPHOCYTE % 49.4 BASOPHIL % 0.7 EOSINOPHIL % 0.6 LYMPHOCYTE # 2.69 NEUTROPHIL # 1.97 RED CELL DISTRIBUTION WIDTH 17.4 H MEAN CELL HGB CONCENTRATION 28.4 L BASOPHIL # 0.04 PLATELET COUNT 393 MEAN PLATELET VOLUME 10.9 EOSINOPHIL # 0.03 MONOCYTE # 0.65 RED BLOOD CELL 3.13 L WHITE BLOOD CELL 5.5 HEMATOCRIT 26.4L L HEMOGLOBIN 7.5L L MEAN CELL HGB 24 L MEAN CELL VOLUME 84.3 COMPREHENSIVE METABOLIC PANEL (05/09/24 04:31) TOTAL PROTEIN 5.8 CREATININE 5.2 H ALBUMIN 3.2 SODIUM 132 L ALKALINE PHOSPHATASE 66 CHLORIDE 98 POTASSIUM 4.1 GLUCOSE 78 CARBON DIOXIDE 28 GLOMERULAR FILTRATION RATE 9 L BLOOD UREA NITROGEN 29 H BILIRUBIN TOTAL 0.3 CALCIUM 8.3 L SGPT/ALT 9 L SGOT/AST 25 AMM (05/09/24 04:31) AMMONIA 27 PTT (05/09/24 04:45) THROMBOPLASTIN TIME PARTIAL 54.8 H GLU BED (05/09/24 07:30) GLUBED 70 TREP PALLID AB (05/09/24 08:22) AB TREPONEMA NONREACTIVE GLU BED (05/09/24 11:58) GLUBED 79 at 1320 at 1320 ATTENT ION *EDITS and/or ADDENDA must be made in Patient Keeper for this note. * * Edits and ammendments created in [employer] are not visible * * in Patient Keeper or the legal medical record (HPF). * RPT #: [id number] END OF REPORT [facility] 2024-05-09 12:07:00 [facility] ([facility]) Nephrology Progress Note REPORT #: [id number] REPORT STATUS: Signed DATE: 05/09/24 TIME: 1207 PATIENT: ELVIS FREEMAN UNIT #: [id number] ROOM #: P.0405 BED: A : 61 AGE: 64 SEX: F ATTEND: Concepcion Tierney MD ADM AUTHOR: Kenzie Medina MD ATTENT ION *EDITS and/or ADDENDA must be made in Patient Keeper for this note. * * Edits and ammendments created in [employer] are not visible * * in Patient Keeper or the legal medical record (HPF). * Note Date: 05/09/24 12:07 -- ASSESSMENT/PLAN -- ASSESSMENT / PLAN: ADDITIONAL COMMENTS: no plan for HD today. -- SUBJECTIVE -- PATIENT NARRATIVE: on HD -- EXAM -- VITALS (05/08 12:07 - 05/09 12:07): Temperature C: 36.6 (36.6 - 37.1) Pulse Rate: 69 (64 - 79) Blood pressure: 117/91 (117/58 - 137/91) Blood pressure source: Monitor Respiratory rate: 14 (8 - 31) IOS (05/08 07:00-05/09 07:00): [id number] Number of continent voids:2 Number of times incontinent stool:4 Oral ml:700 -- DATA -- MEDICATIONS EPOETIN BENITEZ-EPBX 62988 UNIT IV MOWEFR@1700 INSULINS,ISOPH 70:REG 30,H REC 15 UNIT SUBQ BID AC HEPARIN PHARMACY TO MONITOR 1 EACH IV ASDIR LACTULOSE 30 ML PO Q6H DOCUSATE SODIUM 100 MG PO BID BUMETANIDE 2 MG PO DAILY HEPARIN/SOD CHLOR 0.45% 05869 UNITS IV TITRATE SEVELAMER CARBONATE 800 MG PO TID MEALS DEXTROSE 50%-WATER 25 ML IV ASDIR (PRN) polyethylene glycoL 3350 1 PKT PO DAILY AMIODARONE HCL 200 MG PO DAILY EZETIMIBE 10 MG PO DAILY GLUCAGON 1 MG IM ASDIR (PRN) diphenhydrAMINE HCL 25 MG PO Q6H PRN OSELTAMIVIR PHOSPHATE 30 MG PO MoWeFr@1600 methocarbamoL 500 MG PO QID HEPARIN SODIUM,PORCINE 2500 UNIT IV ASDIR PRN GABAPENTIN 200 MG PO BID 9A 5P DOXYCYCLINE MONOHYDRATE 100 MG PO Q12HR HEPARIN SODIUM,PORCINE 5000 UNIT IV ASDIR PRN ROSUVASTATIN CALCIUM 20 MG PO DAILY 1700 INSULIN LISPRO INSULIN SLIDING SCALE SUBQ AC HS IPRATROPIUM/ALBUTEROL SULFATE 3 ML NEB RTQ4H PRN traMADol HCL 50 MG PO Q6H PRN ACETAMINOPHEN 650 MG PO Q4H PRN ONDANSETRON HCL/PF 4 MG IV Q6H PRN hydrALAZINE HCL 10 MG IV Q6H PRN COLCHICINE 0.3 MG PO MoWeFr@1600 guaiFENesin/D-METHORPHAN 5 ML PO Q6H PRN SOD FERRIC GLUC COMPLX/SUCROSE with/in SODIUM CHLORIDE 100 mL BAG 125 MG IV DAILY LAB RESULTS CBC W/AUTO DIFF (05/09/24 04:31) NEUTROPHIL % 36.1 L MONOCYTE % 11.9 H LYMPHOCYTE % 49.4 BASOPHIL % 0.7 EOSINOPHIL % 0.6 LYMPHOCYTE # 2.69 NEUTROPHIL # 1.97 RED CELL DISTRIBUTION WIDTH 17.4 H MEAN CELL HGB CONCENTRATION 28.4 L BASOPHIL # 0.04 PLATELET COUNT 393 MEAN PLATELET VOLUME 10.9 EOSINOPHIL # 0.03 MONOCYTE # 0.65 RED BLOOD CELL 3.13 L WHITE BLOOD CELL 5.5 HEMATOCRIT 26.4L L HEMOGLOBIN 7.5L L MEAN CELL HGB 24.0 L MEAN CELL VOLUME 84.3 COMPREHENSIVE METABOLIC PANEL (05/09/24 04:31) TOTAL PROTEIN 5.8 CREATININE 5.20 H ALBUMIN 3.2 SODIUM 132 L ALKALINE PHOSPHATASE 66.0 CHLORIDE 98 POTASSIUM 4.1 GLUCOSE 78 CARBON DIOXIDE 28 GLOMERULAR FILTRATION RATE 9 L BLOOD UREA NITROGEN 29 H BILIRUBIN TOTAL 0.3 CALCIUM 8.3 L SGPT/ALT 9 L SGOT/AST 25 AMM (05/09/24 04:31) AMMONIA 27 PTT (05/09/24 04:45) THROMBOPLASTIN TIME PARTIAL 54.8 H GLU BED (05/09/24 07:30) GLUBED 70 TREP PALLID AB (05/09/24 08:22) AB TREPONEMA NONREACTIVE at 1207 ATTENT ION *EDITS and/or ADDENDA must be made in Patient Keeper for this note. * * Edits and ammendments created in [employer] are not visible * * in Patient Keeper or the legal medical record (HPF). * RPT #: [id number] END OF REPORT [facility] 2024-05-09 06:54:00 [id number] [facility] [address] [place] [address] PATIENT NAME: ELVIS FREEMAN ADMIT DATE: 05/05/24 ACCOUNT NO: [id number] ROOM NO: [facility] AGE: 64 REPORT TYPE: PROGRESS NOTE SEX: F ADMITTING PHYSICIAN:Concepcion Tierney MD ATTENDING PHYSICIAN:Concepcion Tierney MD DATE: 05/09/2024 INTERNAL MEDICINE PROGRESS NOTE SUBJECTIVE: Events noted. Discussed with staff. Doing about the same. Tolerated dialysis. Overall, feeling better. Awake and responsive. No chest pain, no fever. OBJECTIVE: VITAL SIGNS: Blood pressure 123/60, heart rate of 87, temperature 97.9, respiratory rate of 14. HEENT: Head normocephalic. NECK: Supple. CHEST AND LUNGS: Bilateral breathing sounds. HEART: Normal S1, S2. ABDOMEN: Soft. EXTREMITIES: No edema. NEUROLOGIC: Awake and alert. ASSESSMENT AND PLAN: 1. End-stage renal disease, on hemodialysis Tuesday, Tuesday. Dr. Medina, Nephrology following the patient. 2. Influenza. Remains on Tamiflu 30 mg by mouth [address] Carrington, Infectious Disease consulted. Continue the patient on supplemental oxygen. 3. Atrial fibrillation, rate controlled. Continue the patient on heparin drip for now. Remains on telemetry. Left heart catheterization discussed. 4. Hyperlipidemia. The patient remains on Crestor and Zetia. Dictated By: Concepcion Tierney MD Date Dictated: 05/09/2024 06:54:54 Date Transcribed: 05/09/2024 07:43:58 KS/CHARLES Receipt ID: [id number] Authenticated by Concepcion Tierney MD On 05/09/2024 12:25:40 PM at 1225 PATIENT NAME: ELVIS FREEMAN [facility] 2024-05-09 06:40:00 [id number] [facility] [address] [place] [address] [place] [address] PATIENT NAME: ELVIS FREEMAN ADMIT DATE: 05/05/24 ACCOUNT NO: [id number] ROOM NO: [facility] AGE: 64 REPORT TYPE: PROGRESS NOTE SEX: F ADMITTING PHYSICIAN:Concepcion Tierney MD ATTENDING PHYSICIAN:Concepcion Tierney MD DATE: 05/09/2024 GASTROENTEROLOGY PROGRESS NOTE PROBLEM: Elevation of serum ammonia. SUBJECTIVE: The patient indicates she is feeling fine. She is not having any significant abdominal pain. OBJECTIVE: VITAL SIGNS: Stable. ABDOMEN: Soft and nontender. No guarding. LABORATORY STUDIES: Serum ammonia is now normal at 27. AST is 25, ALT is 9, alkaline phosphatase is 66. Fibrosis score from blood tests is still pending. Elastography apparently not done. ASSESSMENT: The patient's elevation of ammonia is most likely secondary to chronic renal failure. Ultrasound suggests more hepatic steatosis and not cirrhosis. Elastography and the FibroSure test will help best to confirm that the patient does not have evidence of significant liver disease such as cirrhosis. PLAN: DIAGNOSTIC: Follow up FibroSure test and once again attempt to get elastography. THERAPEUTIC: Continue present regimen. PATIENT EDUCATION: The patient informed of the above. Dictated By: Deyvi Melchor Jr, MD Date Dictated: 05/09/2024 06:40:47 Date Transcribed: 05/09/2024 07:09:54 YARELIS/RAMOS/FRANCISCA Receipt ID: [id number] Authenticated and Edited by Deyvi Melchor MD On 05/10/24 5:54:45 AM PATIENT NAME: ELVIS FREEMAN at 0557 PATIENT NAME: ELVIS FREEMAN [facility] 2024-05-09 05:26:00 [id number] [facility] [address] [place] [address] PATIENT NAME: ELVIS FREEMAN ADMIT DATE: 05/05/24 ACCOUNT NO: [id number] ROOM NO: P.0405 AGE: 64 REPORT TYPE: PROGRESS NOTE SEX: F ADMITTING PHYSICIAN:Concepcion Tierney MD ATTENDING PHYSICIAN:Concepcion Tierney MD DATE: INFECTIOUS DISEASE PROGRESS NOTE SUBJECTIVE: The patient is resting comfortably at present time; alert and attentive. Day #3 of 5 of the influenza treatment. No other major issues noted. We will do the doxycycline for the equivalent number of days. All notes reviewed, read, acknowledged and understood. Chief complaint is actually restless leg this morning. Nothing to suggest new active infectious disease problems at present time. We will continue to follow. I do not see the elastography test back as of yet concerning her liver issues. OBJECTIVE: VITAL SIGNS: Temps are in centigrade, blood pressure 123/58, pulse 67 per minute and regular, respirations are 16 per minute. GENERAL: She is a well-developed, well-nourished female complaining of restless leg, otherwise is in no acute distress. SKIN: No new visible lesions. NODES: None were palpable. HEENT: Has not changed. NECK: Supple. LUNGS: Scattered crackles. HEART: Regular rhythm without murmurs, gallops, or rubs. ABDOMEN: Soft, nontender. No hepatosplenomegaly. EXTREMITIES: No clubbing, cyanosis, or significant edema. NEUROLOGICALLY: The patient is at baseline. LABORATORY DATA: Available, has been reviewed. IMPRESSION: Stable from the Infectious Diseases standpoint. No new major issues noted. RECOMMENDATIONS: Continuing as is for now. Antibiotic countdown is as listed and we will adjust antimicrobial agents and interventions as data and clinical circumstances dictate. Dictated By: Jose Carrington Jr, MD Date Dictated: 05/09/2024 05:26:16 Date Transcribed: 05/09/2024 06:17:20 SHAY/OMARI/FRANCISCA PATIENT NAME: ELVIS FREEMAN Receipt ID: [id number] Authenticated by Jose Carrington MD On 05/09/2024 07:28:14 AM at 0728 PATIENT NAME: ELVIS FREEMAN [facility] 2024-05-08 15:54:00 [facility] ([facility]) Internal Med. Progress Note REPORT #: [id number] REPORT STATUS: Signed DATE: 05/08/24 TIME: 1554 PATIENT: ELVIS FREEMAN UNIT #: [id number] ROOM #: P.0405 BED: A : 61 AGE: 64 SEX: F ATTEND: Concepcion Tierney MD ADM AUTHOR: Kenzie Medina MD ATTENT ION *EDITS and/or ADDENDA must be made in Patient Keeper for this note. * * Edits and ammendments created in [employer] are not visible * * in Patient Keeper or the legal medical record (HPF). * Note Date: 05/08/24 15:54 -- ASSESSMENT/PLAN -- ASSESSMENT / PLAN: 1: Coronary artery disease 2: Dependence on renal dialysis 3: ESRD (end stage renal disease) 4: Unspecified diastolic (congestive) heart failure 5: Anemia in chronic kidney disease 6: Chest pain 7: Essential (primary) hypertension 8: Renal osteodystrophy ADDITIONAL COMMENTS: no plan for HD today. -- SUBJECTIVE -- PATIENT NARRATIVE: no acute issues -- EXAM -- VITALS (05/07 15:54 - 05/08 15:54): Temperature C: 37.0 (36.3 - 37.7) Temperature source: Oral Pulse Rate: 72 (72 - 92) Blood pressure: 124/63 (90/48 - 169/73) Respiratory rate: 14 (13 - 35) Blood pressure source: Monitor IOS (05/07 07:00-05/08 07:00): Net-500 [id number] HD net negative volume balance ml:500 HD volume out ml:500 EXAM: Other Constitutional: Well developed, well nourished patient, in no acute distress. Derm/Integumentary: Warm and dry with no rashes, sores, or lesions. Mouth: Mucosa moist and pink with no lesions. Neck: supple with no masses, no thyromegaly, No JVD. Respiratory: Clear to auscultation. Heart: S1S2+, RRR, + systolic murmur Gastrointestinal: + Bowel Sounds all quadrants. Soft, nontender with no masses or organomegaly. Musculoskeletal: Equal strength in all extremities. No weakness. Neurology: Alert and oriented X 3. Calm, cooperative affect. No focal deficits. Extremities: + peripheral pulses. No clubbing, cyanosis. No lower extremity edema. -- DATA -- MEDICATIONS EPOETIN BENITEZ-EPBX 52804 UNIT IV MOWEFR@1700 INSULINS,ISOPH 70:REG 30,H REC 15 UNIT SUBQ BID AC HEPARIN PHARMACY TO MONITOR 1 EACH IV ASDIR LACTULOSE 30 ML PO Q6H DOCUSATE SODIUM 100 MG PO BID BUMETANIDE 2 MG PO DAILY HEPARIN/SOD CHLOR 0.45% 30003 UNITS IV TITRATE SEVELAMER CARBONATE 800 MG PO TID MEALS DEXTROSE 50%-WATER 25 ML IV ASDIR (PRN) polyethylene glycoL 3350 1 PKT PO DAILY AMIODARONE HCL 200 MG PO DAILY EZETIMIBE 10 MG PO DAILY GLUCAGON 1 MG IM ASDIR (PRN) diphenhydrAMINE HCL 25 MG PO Q6H PRN OSELTAMIVIR PHOSPHATE 30 MG PO MoWeFr@1600 methocarbamoL 500 MG PO QID HEPARIN SODIUM,PORCINE 2500 UNIT IV ASDIR PRN GABAPENTIN 200 MG PO BID 9A 5P DOXYCYCLINE MONOHYDRATE 100 MG PO Q12HR HEPARIN SODIUM,PORCINE 5000 UNIT IV ASDIR PRN ROSUVASTATIN CALCIUM 20 MG PO DAILY 1700 INSULIN LISPRO INSULIN SLIDING SCALE SUBQ AC HS IPRATROPIUM/ALBUTEROL SULFATE 3 ML NEB RTQ4H PRN traMADol HCL 50 MG PO Q6H PRN ACETAMINOPHEN 650 MG PO Q4H PRN ONDANSETRON HCL/PF 4 MG IV Q6H PRN hydrALAZINE HCL 10 MG IV Q6H PRN COLCHICINE 0.3 MG PO MoWeFr@1600 guaiFENesin/D-METHORPHAN 5 ML PO Q6H PRN SOD FERRIC GLUC COMPLX/SUCROSE with/in SODIUM CHLORIDE 100 mL BAG 125 MG IV DAILY LAB RESULTS CBC W/AUTO DIFF (05/08/24 04:00) WHITE BLOOD CELL 6.3 EOSINOPHIL # 0.10 HEMOGLOBIN 7.8L L RED BLOOD CELL 3.24 L MEAN CELL VOLUME 86.7 HEMATOCRIT 28.1L L MEAN CELL HGB CONCENTRATION 27.8 L MEAN CELL HGB 24.1 L LYMPHOCYTE % 36.3 NEUTROPHIL % 47.3 EOSINOPHIL % 1.6 MONOCYTE % 13.2 H NEUTROPHIL # 2.97 BASOPHIL % 0.8 MONOCYTE # 0.83 H LYMPHOCYTE # 2.28 PLATELET COUNT 416 RED CELL DISTRIBUTION WIDTH 17.3 H MEAN PLATELET VOLUME 11.2 BASOPHIL # 0.05 FE W/TOTAL IRON BINDING CAP (05/08/24 04:41) TOTAL IRON BINDING CAPACITY 314 IRON 19 L IRON SATURATION 6 L PTT (05/08/24 04:41) THROMBOPLASTIN TIME PARTIAL 35.0 D H COMPREHENSIVE METABOLIC PANEL (05/08/24 04:41) TOTAL PROTEIN 6.5 ALBUMIN 3.5 SODIUM 137 POTASSIUM 4.7 CHLORIDE 102 CARBON DIOXIDE 24 GLUCOSE 83 BLOOD UREA NITROGEN 14 GLOMERULAR FILTRATION RATE 13 L CREATININE 3.70 H CALCIUM 9.0 BILIRUBIN TOTAL 0.4 SGOT/AST 26 SGPT/ALT 12 ALKALINE PHOSPHATASE 75.0 GLU BED (05/08/24 11:43) GLUBED 128 H AMM (05/08/24 13:30) AMMONIA 55 H PTT (05/08/24 13:30) THROMBOPLASTIN TIME PARTIAL 36.8 H at 1555 ATTENT ION *EDITS and/or ADDENDA must be made in Patient Keeper for this note. * * Edits and ammendments created in [employer] are not visible * * in Patient Keeper or the legal medical record ([facility]). * RPT #: [id number] END OF REPORT [facility] 2024-05-08 09:24:00 [facility] ([facility]) Cardiology Progress Notes REPORT #: [id number] REPORT STATUS: Signed DATE: 05/08/24 TIME: 923 PATIENT: ELVIS FREEMAN UNIT #: [id number] ROOM #: P.0405 BED: A : 61 AGE: 64 SEX: F ATTEND: Concepcion Tierney MD [facility] AUTHOR: Walker Woods DO CF1 ATTENT ION *EDITS and/or ADDENDA must be made in Patient Keeper for this note. * * Edits and ammendments created in [employer] are not visible * * in Patient Keeper or the legal medical record ([facility]). * Attending: Celestino Vanessa MD 05/17/24 13:22 I have personally seen and examined the patient independently, and reviewed the patient's history, exam, and all cardiac and laboratory data on 05/08/24. I agree with the history, physical, and the assessment and plan as outlined by Walker Todd DO, Cardiovascular Fellow. Note Date: 05/08/24 09:24 -- ASSESSMENT/PLAN -- GENERAL ASSESSMENT: The patient is a 64-year-old female with hypertension, diabetes, paroxysmal Afib (on Eliquis), heart failure with preserved ejection fraction (HFpEF), ESRD, who was admitted to [facility] on 04/29/2024 with worsening shortness of breath. She also has a history of coronary artery disease and has undergone PCI Jeronimo in the past. She was found to have a moderate circumferential pericardial effusion septal shift. 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 Labs on admission there - NT-ProBNP 7204, Trop I 97.7, INR 3.01, Hgb 7.6, WBC 12.8, plt 483, Cr 2.3. CRP 3.8, ESR 62. ASSESSMENT / PLAN: 1: Chest pain A/P: -Trop 194 peak at [place], downtrended -EKG low voltage QRS, no signs of acute ST changers -Pericardial effusion noted on Echo. LVEF 50-55%, Grade 2 dd, moderate pericardial effusion, left pleural effusion, mild MR, mild TR. -CRP 3.8, ESR 62 at OSH, Started colchicine 0.3mg daily; repeat ESR 44, CRP 5 -Was on Eliquis at home for h/o Afib; holding as INR is supratherapeutic - started heparin drip -Monitor INR -Pt will need LHC, RHC, and constriction study once patient more clinically stable 2: Coronary artery disease A/P: -As above -On rosuvastatin and will restart Zetia (home med). LDL is 15 -Holding clopidogrel for now as she may need surgery or intervention. -Starting IV Heparin 3: Heart failure with preserved ejection fraction A/P: -BNP 7204; CXR Pulm edema on CXR -On iHD for ESRD and for volume management -Preserved ejection fraction on last Echo. -On oral diuretic at home - can hold for now. -Dr. Melchor was consulted as Ammonia is high as well and Liver US ordered. LFT's normal. Discussed with Dr. Vanessa. -- SUBJECTIVE -- CHIEF COMPLAINT: chest pain HPI: No acute events overnight. Pt denies CP, dyspnea, palpitations. REVIEW OF SYSTEMS: Comment 10 Point ROS negative unless otherwise stated. -- EXAM -- VITALS (05/07 09:24 - 05/08 09:24): Blood pressure: 107/71 (90/48 - 183/73) Respiratory rate: 26 (13 - 35) Blood pressure source: Monitor Temperature C: 36.9 (36.3 - 37.7) Temperature F: 98.5 Pulse Rate: 80 (80 - 100) Temperature source: Oral IOS (05/07 07:00-05/08 07:00): Net-500 [id number] HD net negative volume balance ml:500 HD volume out ml:500 EXAM: Other Constitutional: Well developed, well nourished patient, in no acute distress. Derm/Integumentary: Warm and dry with no rashes, sores, or lesions. Mouth: Mucosa moist and pink with no lesions. Neck: supple with no masses, no thyromegaly, No JVD. Respiratory: Clear to auscultation. Heart: S1S2+, RRR, + systolic murmur Gastrointestinal: + Bowel Sounds all quadrants. Soft, nontender with no masses or organomegaly. Musculoskeletal: Equal strength in all extremities. No weakness. Neurology: Alert and oriented X 3. Calm, cooperative affect. No focal deficits. Extremities: + peripheral pulses. No clubbing, cyanosis. No lower extremity edema. -- DATA -- MEDICATIONS EPOETIN BENITEZ-EPBX 04898 UNIT IV MOWEFR@1700 INSULINS,ISOPH 70:REG 30,H REC 15 UNIT SUBQ BID AC HEPARIN PHARMACY TO MONITOR 1 EACH IV ASDIR LACTULOSE 30 ML PO Q6H DOCUSATE SODIUM 100 MG PO BID BUMETANIDE 2 MG PO DAILY HEPARIN/SOD CHLOR 0.45% 85842 UNITS IV TITRATE SEVELAMER CARBONATE 800 MG PO TID MEALS DEXTROSE 50%-WATER 25 ML IV ASDIR (PRN) polyethylene glycoL 3350 1 PKT PO DAILY AMIODARONE HCL 200 MG PO DAILY EZETIMIBE 10 MG PO DAILY GLUCAGON 1 MG IM ASDIR (PRN) diphenhydrAMINE HCL 25 MG PO Q6H PRN OSELTAMIVIR PHOSPHATE 30 MG PO MoWeFr@1600 methocarbamoL 500 MG PO QID HEPARIN SODIUM,PORCINE 2500 UNIT IV ASDIR PRN GABAPENTIN 200 MG PO BID 9A 5P DOXYCYCLINE MONOHYDRATE 100 MG PO Q12HR HEPARIN SODIUM,PORCINE 5000 UNIT IV ASDIR PRN ROSUVASTATIN CALCIUM 20 MG PO DAILY 1700 INSULIN LISPRO INSULIN SLIDING SCALE SUBQ AC HS IPRATROPIUM/ALBUTEROL SULFATE 3 ML NEB RTQ4H PRN traMADol HCL 50 MG PO Q6H PRN ACETAMINOPHEN 650 MG PO Q4H PRN ONDANSETRON HCL/PF 4 MG IV Q6H PRN hydrALAZINE HCL 10 MG IV Q6H PRN COLCHICINE 0.3 MG PO MoWeFr@1600 guaiFENesin/D-METHORPHAN 5 ML PO Q6H PRN LAB RESULTS CBC W/AUTO DIFF (05/08/24 04:00) WHITE BLOOD CELL 6.3 EOSINOPHIL # 0.1 HEMOGLOBIN 7.8L L RED BLOOD CELL 3.24 L MEAN CELL VOLUME 86.7 HEMATOCRIT 28.1L L MEAN CELL HGB CONCENTRATION 27.8 L MEAN CELL HGB 24.1 L LYMPHOCYTE % 36.3 NEUTROPHIL % 47.3 EOSINOPHIL % 1.6 MONOCYTE % 13.2 H NEUTROPHIL # 2.97 BASOPHIL % 0.8 MONOCYTE # 0.83 H LYMPHOCYTE # 2.28 PLATELET COUNT 416 RED CELL DISTRIBUTION WIDTH 17.3 H MEAN PLATELET VOLUME 11.2 BASOPHIL # 0.05 FE W/TOTAL IRON BINDING CAP (05/08/24 04:41) TOTAL IRON BINDING CAPACITY 314 IRON 19 L IRON SATURATION 6 L PTT (05/08/24 04:41) THROMBOPLASTIN TIME PARTIAL 35 D H COMPREHENSIVE METABOLIC PANEL (05/08/24 04:41) TOTAL PROTEIN 6.5 ALBUMIN 3.5 SODIUM 137 POTASSIUM 4.7 CHLORIDE 102 CARBON DIOXIDE 24 GLUCOSE 83 BLOOD UREA NITROGEN 14 GLOMERULAR FILTRATION RATE 13 L CREATININE 3.7 H CALCIUM 9 BILIRUBIN TOTAL 0.4 SGOT/AST 26 SGPT/ALT 12 ALKALINE PHOSPHATASE 75 at 1322 at 1322 ATTENT ION *EDITS and/or ADDENDA must be made in Patient Keeper for this note. * * Edits and ammendments created in [employer] are not visible * * in Patient Keeper or the legal medical record (HPF). * [facility] #: [id number] END OF REPORT [facility] 2024-05-08 07:19:00 [id number] [facility] [address] [place] [address] PATIENT NAME: ELVIS FREEMAN ADMIT DATE: 05/05/24 ACCOUNT NO: [id number] ROOM NO: P.0405 AGE: 64 REPORT TYPE: PROGRESS NOTE SEX: F ADMITTING PHYSICIAN:Concepcion Tierney MD ATTENDING PHYSICIAN:Concepcion Tierney MD DATE: 05/08/2024 PROGRESS NOTE SUBJECTIVE: Events noted. Doing about the same. Tolerated hemodialysis. No fever noted. Discussed with nursing staff. OBJECTIVE: VITAL SIGNS: Blood pressure 111/60, heart rate 74, temperature 97.9, respiratory rate of 17. HEENT: Head is normocephalic. NECK: Supple. CHEST AND LUNGS: Bilateral breathing sounds. HEART: Normal S1 and S2. ABDOMEN: Soft. EXTREMITIES: No edema. ASSESSMENT AND PLAN: 1. End-stage renal disease. Remains on hemodialysis on Tuesdays, Saturdays. Dr. Medina, Nephrology following the patient. 2. Coronary artery disease. Cardiology following the patient. Eliquis on hold for now. 3. Pericardial effusion. The patient has ascites. 4. End-stage liver disease. Dr. Deyvi Melchor, Gastroenterology, following the patient. Ultrasound of abdomen complete, showed hepatic steatosis versus chronic liver disease. We will ammonia. Dictated By: Concepcion Tierney MD Date Dictated: 05/08/2024 07:19:16 Date Transcribed: 05/08/2024 08:15:06 AMY/RANDOLPH/FRANCISCA Receipt ID: [id number] Authenticated by Concepcion Tierney MD On 05/08/2024 06:00:39 PM at 0600 PATIENT NAME: ELVIS FREEMAN [facility] 2024-05-08 06:17:00 [id number] [facility] [address] [facility] [place] [address] PATIENT NAME: ELVIS FREEMAN ADMIT DATE: 05/05/24 ACCOUNT NO: [id number] ROOM NO: P.0405 AGE: 64 REPORT TYPE: PROGRESS NOTE SEX: F ADMITTING PHYSICIAN:Concepcion Tierney MD ATTENDING PHYSICIAN:Concepcion Tierney MD DATE: 05/08/2024 GASTROENTEROLOGY PROGRESS NOTE PROBLEM: Elevation of serum ammonia. SUBJECTIVE: The patient indicates that she is not having any abdominal pain. No nausea or vomiting. OBJECTIVE: VITAL SIGNS: Stable. ABDOMEN: Soft and nontender. LABORATORY STUDIES: Liver enzymes are normal, with AST 26, ALT 12, alkaline phosphatase is 75. Ultrasound shows suggestion of some hepatic steatosis. The elastography was not done. ASSESSMENT: The patient's screening ultrasound suggest more of a fatty steatosis. Elevation of ammonia may be of a non-hepatic origin. We will repeat and request elastography of the liver. PLAN: DIAGNOSTIC: Follow up FibroSure test and elastography of the liver. Obtain serum ammonia today. THERAPEUTIC: Continue present regimen. PATIENT EDUCATION: The patient informed of the above. Dictated By: Deyvi Melchor Jr, MD Date Dictated: 05/08/2024 06:17:54 Date Transcribed: 05/08/2024 06:42:23 CHIVO/KAE Receipt ID: [id number] Authenticated by Deyvi Melchor MD On 05/08/2024 02:59:45 PM at 0259 PATIENT NAME: ELVIS FREEMAN [facility] 2024-05-08 05:47:00 [id number] [facility] [address] [place] [address] [place] [address] PATIENT NAME: ELVIS FREEMAN ADMIT DATE: 05/05/24 ACCOUNT NO: [id number] ROOM NO: [id number] AGE: 64 REPORT TYPE: PROGRESS NOTE SEX: F ADMITTING PHYSICIAN:Concepcion Tierney MD ATTENDING PHYSICIAN:Concepcion Tierney MD DATE: INFECTIOUS DISEASE PROGRESS NOTE SUBJECTIVE: The patient is alert and attentive. She has influenza B. Tamiflu was started, day #2 of 5. All notes reviewed, read, acknowledged and understood. Discussed in detail with nighttime nursing personnel as well as the patient at the bedside. We will continue doxycycline for some risk of Staph infection in these patients such as this. We will do 5 days of doxycycline, 5 days of Tamiflu. Discussed in detail with the patient at bedside as well as telling her that the folks at her home probably needs to be checked since there is bronchitis in the house and flu may be in the differential, so she should see the physicians about this particular possibility. All notes reviewed, read, acknowledged and understood. Discussed in detail with Dr. Tierney. OBJECTIVE: VITAL SIGNS: Temperature 98 degrees, blood pressure 109/48, pulse 82 per minute and regular, respirations are 15 per minute. GENERAL: She is a well-developed, well-nourished female in no acute distress. SKIN: No new visible lesions. NODES: None were palpable. HEENT: Has not changed. NECK: Supple, without thyromegaly or lymphadenopathy. LUNGS: Fairly clear to auscultation and percussion. HEART: Regular rhythm without murmurs, gallops or rubs. ABDOMEN: Soft, nontender. No hepatosplenomegaly. EXTREMITIES: No clubbing, cyanosis or significant edema. NEUROLOGIC: The patient is at baseline. LABORATORY DATA: Available has been reviewed. IMPRESSION: Bronchitic symptoms are due to influenza B, some risk for Staph infection. RECOMMENDATIONS: Tamiflu plus doxycycline for 5 days. Continue present supportive care and adjust interventions further as data and clinical circumstances dictate. Dictated By: Jose Carrington Jr, MD Date Dictated: 05/08/2024 05:47:32 Date Transcribed: 05/08/2024 06:21:33 SHAY/RANDOLPH PATIENT NAME: ELVIS FREEMAN Receipt ID: [id number] Authenticated by Jose Carrington MD On 05/08/2024 07:41:45 AM at 0741 PATIENT NAME: ELVIS FREEMAN [facility] 2024-05-07 16:10:00 [facility] ([facility]) Nephrology Progress Note REPORT #: [id number] REPORT STATUS: Signed DATE: 05/07/24 TIME: 1610 PATIENT: ELVIS FREEMAN UNIT #: [id number] ROOM #: P.0405 BED: A : 61 AGE: 64 SEX: F ATTEND: Concepcion Tierney MD ADM AUTHOR: Kenzie eMdina MD ATTENT ION *EDITS and/or ADDENDA must be made in Patient Keeper for this note. * * Edits and ammendments created in [facility] are not visible * * in Patient Keeper or the legal medical record (HPF). * Note Date: 05/07/24 16:10 -- ASSESSMENT/PLAN -- GENERAL ASSESSMENT: The patient is a 64-year-old female with hypertension, diabetes, paroxysmal Afib (on Eliquis), heart failure with preserved ejection fraction (HFpEF), ESRD, who was admitted to [facility] on 04/29/2024 with worsening shortness of breath. She also has a history of coronary artery disease and has undergone PCI Jeronimo in the past. She was found to have a moderate circumferential pericardial effusion septal shift. 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 Labs on admission there - NT-ProBNP 7204, Trop I 97.7, INR 3.01, Hgb 7.6, WBC 12.8, plt 483, Cr 2.3. CRP 3.8, ESR 62. ASSESSMENT / PLAN: 1: Anemia in chronic kidney disease 2: Chest pain 3: Coronary artery disease 4: ESRD (end stage renal disease) 5: Essential (primary) hypertension 6: Heart failure with preserved ejection fraction 7: Renal osteodystrophy ADDITIONAL COMMENTS: on HD today. tolerating well. UF 1 to 2 kgs. standard abth. 300/300 -- SUBJECTIVE -- PATIENT NARRATIVE: on HD today -- EXAM -- VITALS (05/06 16:10 - 05/07 16:10): Respiratory rate: 20 (5 - 34) Blood pressure source: Monitor Temperature F: 98.5 (97.7 - 98.5) Temperature C: 37.8 (36.9 - 38.0) Pulse Rate: 94 (77 - 97) Blood pressure: 144/66 (93/48 - 183/70) IOS (05/06 07:00-05/07 07:00): Fwa653.00 Ptyllu912.00 Output0 Amount taken:75 Continent stool count:2 Fresh frozen plasma, volume transfused:296 IV fluid 1 volume ml:267.00 IV fluid 2 volume ml:25.00 Normal saline volume (ml):140 Number of continent voids:1 Oral ml:160 Void ml:0 EXAM: Other Constitutional: Well developed, well nourished patient, in no acute distress. Derm/Integumentary: Warm and dry with no rashes, sores, or lesions. Mouth: Mucosa moist and pink with no lesions. Neck: supple with no masses, no thyromegaly, No JVD. Respiratory: Clear to auscultation. Heart: S1S2+, RRR, + systolic murmur Gastrointestinal: + Bowel Sounds all quadrants. Soft, nontender with no masses or organomegaly. Musculoskeletal: Equal strength in all extremities. No weakness. Neurology: Alert and oriented X 3. Calm, cooperative affect. No focal deficits. Extremities: + peripheral pulses. No clubbing, cyanosis. No lower extremity edema. -- DATA -- MEDICATIONS INSULINS,ISOPH 70:REG 30,H REC 15 UNIT SUBQ BID AC HEPARIN PHARMACY TO MONITOR 1 EACH IV ASDIR LACTULOSE 30 ML PO Q6H DOCUSATE SODIUM 100 MG PO BID BUMETANIDE 2 MG PO DAILY morphine SULFATE 2 MG IV Q4H PRN HEPARIN/SOD CHLOR 0.45% 93379 UNITS IV TITRATE SEVELAMER CARBONATE 800 MG PO TID MEALS DEXTROSE 50%-WATER 25 ML IV ASDIR (PRN) polyethylene glycoL 3350 1 PKT PO DAILY AMIODARONE HCL 200 MG PO DAILY EZETIMIBE 10 MG PO DAILY GLUCAGON 1 MG IM ASDIR (PRN) diphenhydrAMINE HCL 25 MG PO Q6H PRN OSELTAMIVIR PHOSPHATE 30 MG PO MoWeFr@1600 methocarbamoL 500 MG PO QID HEPARIN SODIUM,PORCINE 2500 UNIT IV ASDIR PRN GABAPENTIN 200 MG PO BID 9A 5P DOXYCYCLINE MONOHYDRATE 100 MG PO Q12HR HEPARIN SODIUM,PORCINE 5000 UNIT IV ASDIR PRN ROSUVASTATIN CALCIUM 20 MG PO DAILY 1700 INSULIN LISPRO INSULIN SLIDING SCALE SUBQ AC HS IPRATROPIUM/ALBUTEROL SULFATE 3 ML NEB RTQ4H PRN traMADol HCL 50 MG PO Q6H PRN ACETAMINOPHEN 650 MG PO Q4H PRN ONDANSETRON HCL/PF 4 MG IV Q6H PRN hydrALAZINE HCL 10 MG IV Q6H PRN COLCHICINE 0.3 MG PO MoWeFr@1600 guaiFENesin/D-METHORPHAN 5 ML PO Q6H PRN LAB RESULTS COMPREHENSIVE METABOLIC PANEL (05/07/24 04:26) BILIRUBIN TOTAL 0.4 SGOT/AST 20 CALCIUM 9.1 GLUCOSE 82 BLOOD UREA NITROGEN 19 CHLORIDE 101 CARBON DIOXIDE 27 SODIUM 134 L POTASSIUM 4.7 SGPT/ALT 13 ALKALINE PHOSPHATASE 81.0 TOTAL PROTEIN 6.4 ALBUMIN 3.5 GLOMERULAR FILTRATION RATE 11 L CREATININE 4.30 H CBC W/AUTO DIFF (05/07/24 04:26) RED CELL DISTRIBUTION WIDTH 17.1 H PLATELET COUNT 450H H MEAN CELL HGB 24.0 L MEAN CELL HGB CONCENTRATION 28.1 L HEMATOCRIT 25.6L L MEAN CELL VOLUME 85.3 RED BLOOD CELL 3.00 L HEMOGLOBIN 7.2L L BASOPHIL # 0.07 MEAN PLATELET VOLUME 11.1 NEUTROPHIL % 68.8 LYMPHOCYTE % 16.4 L EOSINOPHIL # 0.02 WHITE BLOOD CELL 9.1 LYMPHOCYTE # 1.50 MONOCYTE # 1.19 H BASOPHIL % 0.8 NEUTROPHIL # 6.29 MONOCYTE % 13.0 H EOSINOPHIL % 0.2 PROTHROMBIN TIME (05/07/24 04:26) PROTHROMBIN TIME PATIENT 23.7 H INTERNATIONAL NORMAL RATIO 2.15 D H COVID 19 IH AG (05/07/24 06:56) COVID 19 INHOUSE AG NEGATIVE HBSAB (05/07/24 09:25) AB HEPATITIS B SURFACE REACTIVE A HBCAB (05/07/24 09:25) AB HEPATITIS B CORE Nonreactive CRP (05/07/24 09:25) C REACTIVE PROTEIN 25 H HBSAG (05/07/24 09:25) AG HEPATITIS B SURFACE Nonreactive WINTROBE ESR (05/07/24 09:25) WINTROBE SED RATE 44 H HCVAB (05/07/24 09:25) AB HEPATITIS C Nonreactive GLU BED (05/07/24 11:44) GLUBED 78 PTT (05/07/24 12:55) THROMBOPLASTIN TIME PARTIAL 31.1 at 1611 ATTENT ION *EDITS and/or ADDENDA must be made in Patient Keeper for this note. * * Edits and ammendments created in [facility] are not visible * * in Patient Keeper or the legal medical record (HPF). * [facility] #: [id number] END OF REPORT [facility] 2024-05-07 13:36:00 [facility] ([facility]) Cardiology Progress Notes REPORT #: [id number] REPORT STATUS: Signed DATE: 05/07/24 TIME: 1336 PATIENT: ELVIS FREEMAN UNIT #: [id number] ROOM #: [facility] BED: A : 61 AGE: 64 SEX: F ATTEND: Concepcion Tierney MD ADM AUTHOR: Walker Woods DO CF1 ATTENT ION *EDITS and/or ADDENDA must be made in Patient Keeper for this note. * * Edits and ammendments created in [employer] are not visible * * in Patient Keeper or the legal medical record (HPF). * Attending: Celestino Vanessa MD 05/17/24 14:11 I have personally seen and examined the patient independently, and reviewed the patient's history, exam, and all cardiac and laboratory data on 05/07/24. I agree with the history, physical, and the assessment and plan as outlined by Walker Todd DO, Cardiovascular Fellow. Note Date: 05/07/24 13:36 -- ASSESSMENT/PLAN -- GENERAL ASSESSMENT: The patient is a 64-year-old female with hypertension, diabetes, paroxysmal Afib (on Eliquis), heart failure with preserved ejection fraction (HFpEF), ESRD, who was admitted to [facility] on 04/29/2024 with worsening shortness of breath. She also has a history of coronary artery disease and has undergone PCI [place] in the past. She was found to have a moderate circumferential pericardial effusion septal shift. 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 Labs on admission there - NT-ProBNP 7204, Trop I 97.7, INR 3.01, Hgb 7.6, WBC 12.8, plt 483, Cr 2.3. CRP 3.8, ESR 62. ASSESSMENT / PLAN: 1: Chest pain A/P: -Trop 194 peak at [place], downtrended -EKG low voltag QRS, no signs of acute ST changers -Pericardial effusion noted on Echo. LVEF 50-55%, Grade 2 dd, moderate pericardial effusion, left pleural effusion, mild MR, mild TR. -CRP 3.8, ESR 62 at OSH, Started colchicine 0.3mg daily; repeat ESR 44, CRP 5 -Was on Eliquis at home for h/o Afib; holding as INR is supratherapeutic - started heparin drip -Recheck INR In AM 2.15 -Pt will need LHC, RHC, and constriction study once patient more clinically stable 2: Coronary artery disease A/P: -As above -On rosuvastatin and will restart Zetia (home med). LDL is 15 -Holding clopidogrel for now as she may need surgery or intervention. -Starting IV Heparin 3: Heart failure with preserved ejection fraction A/P: -BNP 7204; CXR Pulm edema on CXR -On iHD for ESRD and for volume management -Preserved ejection fraction on last Echo. -On oral diuretic at home - can hold for now. -Dr. Melchor was consulted as Ammonia is high as well and Liver US ordered. LFT's normal. Discussed with Dr. Vanessa. -- SUBJECTIVE -- CHIEF COMPLAINT: chest pain REVIEW OF SYSTEMS: Comment 10 Point ROS negative unless otherwise stated. -- EXAM -- VITALS (05/06 13:36 - 05/07 13:36): Blood pressure: 144/66 (93/48 - 183/70) Temperature F: 98.5 (97.7 - 98.5) Blood pressure source: Monitor Respiratory rate: 20 (5 - 34) Temperature C: 37.8 (36.9 - 38) Pulse Rate: 94 (77 - 97) IOS (05/06 07:00-05/07 07:00): [id number] Output0 Amount taken:75 Continent stool count:2 Fresh frozen plasma, volume transfused:296 IV fluid 1 volume ml:267 IV fluid 2 volume ml:25 Normal saline volume (ml):140 Number of continent voids:1 Oral ml:160 Void ml:0 EXAM: Other Constitutional: Well developed, well nourished patient, in no acute distress. Derm/Integumentary: Warm and dry with no rashes, sores, or lesions. Mouth: Mucosa moist and pink with no lesions. Neck: supple with no masses, no thyromegaly, No JVD. Respiratory: Clear to auscultation. Heart: S1S2+, RRR, + systolic murmur Gastrointestinal: + Bowel Sounds all quadrants. Soft, nontender with no masses or organomegaly. Musculoskeletal: Equal strength in all extremities. No weakness. Neurology: Alert and oriented X 3. Calm, cooperative affect. No focal deficits. Extremities: + peripheral pulses. No clubbing, cyanosis. No lower extremity edema. -- DATA -- MEDICATIONS INSULINS,ISOPH 70:REG 30,H REC 15 UNIT SUBQ BID AC HEPARIN PHARMACY TO MONITOR 1 EACH IV ASDIR LACTULOSE 30 ML PO Q6H IOPAMIDOL 76% 100 ML IV ONCE (PRN) DOCUSATE SODIUM 100 MG PO BID BUMETANIDE 2 MG PO DAILY morphine SULFATE 2 MG IV Q4H PRN HEPARIN/SOD CHLOR 0.45% 77858 UNITS IV TITRATE SEVELAMER CARBONATE 800 MG PO TID MEALS DEXTROSE 50%-WATER 25 ML IV ASDIR (PRN) polyethylene glycoL 3350 1 PKT PO DAILY AMIODARONE HCL 200 MG PO DAILY EZETIMIBE 10 MG PO DAILY GLUCAGON 1 MG IM ASDIR (PRN) diphenhydrAMINE HCL 25 MG PO Q6H PRN OSELTAMIVIR PHOSPHATE 30 MG PO MoWeFr@1600 methocarbamoL 500 MG PO QID HEPARIN SODIUM,PORCINE 2500 UNIT IV ASDIR PRN GABAPENTIN 200 MG PO BID 9A 5P DOXYCYCLINE MONOHYDRATE 100 MG PO Q12HR HEPARIN SODIUM,PORCINE 5000 UNIT IV ASDIR PRN ROSUVASTATIN CALCIUM 20 MG PO DAILY 1700 INSULIN LISPRO INSULIN SLIDING SCALE SUBQ AC HS IPRATROPIUM/ALBUTEROL SULFATE 3 ML NEB RTQ4H PRN traMADol HCL 50 MG PO Q6H PRN ACETAMINOPHEN 650 MG PO Q4H PRN ONDANSETRON HCL/PF 4 MG IV Q6H PRN hydrALAZINE HCL 10 MG IV Q6H PRN COLCHICINE 0.3 MG PO MoWeFr@1600 guaiFENesin/D-METHORPHAN 5 ML PO Q6H PRN LAB RESULTS COMPREHENSIVE METABOLIC PANEL (05/07/24 04:26) BILIRUBIN TOTAL 0.4 SGOT/AST 20 CALCIUM 9.1 GLUCOSE 82 BLOOD UREA NITROGEN 19 CHLORIDE 101 CARBON DIOXIDE 27 SODIUM 134 L POTASSIUM 4.7 SGPT/ALT 13 ALKALINE PHOSPHATASE 81 TOTAL PROTEIN 6.4 ALBUMIN 3.5 GLOMERULAR FILTRATION RATE 11 L CREATININE 4.3 H CBC W/AUTO DIFF (05/07/24 04:26) RED CELL DISTRIBUTION WIDTH 17.1 H PLATELET COUNT 450H H MEAN CELL HGB 24 L MEAN CELL HGB CONCENTRATION 28.1 L HEMATOCRIT 25.6L L MEAN CELL VOLUME 85.3 RED BLOOD CELL 3 L HEMOGLOBIN 7.2L L BASOPHIL # 0.07 MEAN PLATELET VOLUME 11.1 NEUTROPHIL % 68.8 LYMPHOCYTE % 16.4 L EOSINOPHIL # 0.02 WHITE BLOOD CELL 9.1 LYMPHOCYTE # 1.5 MONOCYTE # 1.19 H BASOPHIL % 0.8 NEUTROPHIL # 6.29 MONOCYTE % 13 H EOSINOPHIL % 0.2 PROTHROMBIN TIME (05/07/24 04:26) PROTHROMBIN TIME PATIENT 23.7 H INTERNATIONAL NORMAL RATIO 2.15 D H COVID 19 IH AG (05/07/24 06:56) COVID 19 INHOUSE AG NEGATIVE HBSAB (05/07/24 09:25) AB HEPATITIS B SURFACE REACTIVE A HBCAB (05/07/24 09:25) AB HEPATITIS B CORE Nonreactive CRP (05/07/24 09:25) C REACTIVE PROTEIN 25 H HBSAG (05/07/24 09:25) AG HEPATITIS B SURFACE Nonreactive WINTROBE ESR (05/07/24 09:25) WINTROBE SED RATE 44 H HCVAB (05/07/24 09:25) AB HEPATITIS C Nonreactive GLU BED (05/07/24 11:44) GLUBED 78 at 1411 at 1411 ATTENT ION *EDITS and/or ADDENDA must be made in Patient Keeper for this note. * * Edits and ammendments created in [employer] are not visible * * in Patient Keeper or the legal medical record (HPF). * [facility] #: [id number] END OF REPORT [facility] 2024-05-07 10:06:00 [id number] [facility] [address] [place] [address] [place] [address] PATIENT NAME: ELVIS FREEMAN ADMIT DATE: 05/05/24 ACCOUNT NO: [id number] ROOM NO: [facility] AGE: 64 REPORT TYPE: PROGRESS NOTE SEX: F ADMITTING PHYSICIAN:Concepcion Tierney MD ATTENDING PHYSICIAN:Concepcion Tierney MD DATE: 05/07/2024 INTERNAL MEDICINE PROGRESS NOTE SUBJECTIVE: Events noted and doing about the same. Awake and responsive. Discussed with Cardiology team. No fever, no nausea. OBJECTIVE: VITAL SIGNS: Blood sugar 132/60, heart rate 87, temperature 97.7, respiratory rate of 17. HEENT: Head normocephalic. NECK: Supple. CHEST AND LUNGS: Bilateral breathing sounds. HEART: Normal S1 and S2. ABDOMEN: Soft. EXTREMITIES: No edema. NEUROLOGIC: Awake and alert. PERTINENT FINDINGS: INR 2.1. ASSESSMENT AND PLAN: 1. Fever. Dr. Carrington following the patient. The patient remains off antibiotics. Culture will be obtained. 2. Atrial fibrillation, rate controlled. Eliquis on hold per Cardiology team. The patient on amiodarone 200 mg p.o. daily. 3. Rule out advanced liver disease. Ammonia was elevated. Gastroenterology following the patient. 4. End-stage renal disease. Remains on hemodialysis, Tuesday, Tuesday. Dr. Medina, Nephrology following the patient. Dictated By: Concepcion Tierney MD Date Dictated: 05/07/2024 10:06:01 Date Transcribed: 05/07/2024 10:48:55 AMY/LUL Receipt ID: [id number] Authenticated and Edited by Concepcion Tierney MD On 05/07/24 12:47:29 PM at 1249 PATIENT NAME: ELVIS FREEMAN [facility] 2024-05-07 06:51:00 [id number] [facility] [address] [place] [address] [place] [address] PATIENT NAME: ELVIS FREEMAN ADMIT DATE: 05/05/24 ACCOUNT NO: [id number] ROOM NO: [id number] AGE: 64 REPORT TYPE: PROGRESS NOTE SEX: F ADMITTING PHYSICIAN:Concepcion Tierney MD ATTENDING PHYSICIAN:Concepcion Tierney MD DATE: 05/07/2024 GASTROENTEROLOGY PROGRESS NOTE PROBLEM: Elevation of ammonia. SUBJECTIVE: The patient indicates that she is not having any abdominal pain. She is not having any nausea or vomiting. OBJECTIVE: VITAL SIGNS: Stable. GENERAL: The patient is responsive, no acute distress. ABDOMEN: Soft. Bowel sounds are present. LABORATORY STUDIES: PT/INR is 23.7 and 2.15. Liver enzymes are normal. ASSESSMENT: The patient is being evaluated for possible advanced cirrhosis in the liver. Elevation of ammonia may be from congestive heart failure. We will await pending studies. PLAN: DIAGNOSTIC: Follow up pending studies including elastography of the liver FibroSure test. PATIENT EDUCATION: The patient advised of the above. Dictated By: Deyvi Melchor Jr, MD Date Dictated: 05/07/2024 06:51:02 Date Transcribed: 05/07/2024 07:54:02 YARELIS/IVAN Receipt ID: [id number] Authenticated by Deyvi Melchor MD On 05/08/2024 02:59:41 PM at 0259 PATIENT NAME: ELVIS FREEMAN [facility] 2024-05-07 05:35:00 [phone] [facility] [address] [place] [address] PATIENT NAME: ELVIS FREEMAN ADMIT DATE: 05/05/24 ACCOUNT NO: [id number] ROOM NO: P.[id number] AGE: 64 REPORT TYPE: CONSULTATION SEX: F ADMITTING PHYSICIAN:Concepcion Tierney MD ATTENDING PHYSICIAN:Concepcion Tierney MD CONSULTATION DATE: 05/07/2024 INFECTIOUS DISEASE CONSULTATION ATTENDING PHYSICIAN: Concepcion Tierney MD LOCATION: The patient is in room 405. HISTORY OF PRESENT ILLNESS: A 64-year-old female being followed for following problem list: 1. Hypertension. 2. Diabetes mellitus. 3. Atrial fibrillation, on Eliquis. 4. History of congestive heart failure. 5. End-stage renal disease. 6. NO HISTORY OF ALLERGIES TO ANTIMICROBIAL AGENTS. The patient was admitted to [facility] on 04/29/2024 with worsening shortness of breath. At that time, records revealed, the patient received ceftriaxone. Apparently, she is on Omnicef on an outpatient basis. She was transferred here because of pericardial effusion and to care for this Ramin cardiac issue. Once here, the patient has had low-grade temperatures now prompting infectious disease consultation. The patient is alert and attentive, complaining of cough, with mild shortness of breath. She says a lot of people in the home setting are coughing at this juncture. Again, she has been on a variety of antibiotics at the last hospitalization. I cannot find a COVID or flu test, basic studies here have been unimpressive at this juncture. She has been on colchicine for the pericardial effusion and for whatever reason she is now found to have an elevated ammonia level and so liver workup for possible liver disease is also underway. Hepatitis B and C screens have been negative so far. The patient is alert and attentive, otherwise says she feels fine. Denies high spiking fevers. There is no chills, or picture of systemic response syndrome at present time. No prior history of Infectious Disease problems have been delineated. PAST MEDICAL HISTORY: Listed as above. ALLERGIES: SHE IS NOT ALLERGIC TO ANTIMICROBIAL AGENTS. FAMILY HISTORY: Noncontributory. SOCIAL HISTORY: No active tobacco, alcohol, or drug abuse. No unusual hobbies, pets, or travel. PATIENT NAME: ELVIS FREEMAN REVIEW OF SYSTEMS: A 12-point review of systems from Infectious Disease standpoint has been captured in the history of present illness. PHYSICAL EXAMINATION: VITAL SIGNS: Temperature of 100.4 degrees, blood pressure 140/68, pulse 90 per minute and regular, respirations 23 per minute. GENERAL: She is well-developed, well-nourished female, who is coughing during interview, otherwise is in no acute distress. SKIN: No new visible lesions. NODES: None were palpable. HEENT: No scleral icterus or conjunctival petechiae. Funduscopic examination was not repeated. Oropharynx is clear. NECK: Supple, without thyromegaly or lymphadenopathy. LUNGS: Fairly clear to auscultation and percussion. HEART: Regular rate and rhythm without murmurs, gallops or rubs. ABDOMEN: Normal contour. Bowel sounds are positive without bruits, pulsatile masses, tenderness on light and deep palpation. Liver and spleen not palpable. No rebound, guarding, rigidity, or palpable mass lesions. EXTREMITIES: No clubbing or cyanosis. NEUROLOGIC: The patient is alert and attentive. No focal findings. LABORATORY DATA: Available has been reviewed. IMPRESSION: Low-grade temperatures with chief complaint of cough. There has been a variety of antibiotics since the last institution with no specific diagnosis being made. RECOMMENDATIONS: Cardiac workup is underway. Since I do not see, I am going to screen again for influenza, respiratory panel as well as COVID. Patient on oral doxycycline pending culture reports and we will adjust antimicrobial agents and interventions further as data and clinical circumstances dictate. Discussed in detail with Dr. Melchor, Dr. Tierney, the patient at bedside and nighttime nursing personnel and I appreciate the opportunity to participate in her care. Dictated By: Jose Carrington Jr, MD Date Dictated: 05/07/2024 05:35:09 Date Transcribed: 05/07/2024 06:17:57 SHAY/RANDOLPH Receipt ID: [id number] CC: Concepcion Tierney MD Authenticated by Jose Carrington MD On 05/08/2024 07:41:44 AM at 0741 PATIENT NAME: ELVIS FREEMAN [facility] 2024-05-06 15:57:00 [id number] [facility] [address] [place] [address] [place] [address] PATIENT NAME: ELVIS FREEMAN ADMIT DATE: 05/05/24 ACCOUNT NO: [id number] ROOM NO: P.[id number] AGE: 64 REPORT TYPE: CONSULTATION SEX: F ADMITTING PHYSICIAN:Concepcion Tierney MD ATTENDING PHYSICIAN:Concepcion Tierney MD CONSULTATION DATE: 05/06/2024 CONCLUSION: Elevation of serum ammonia of uncertain significance with a normal liver enzymes, but prolonged PT/INR. Rule out advanced liver disease. Rule out chronic viral infection. Rule out nonspecific ammonia elevation. RECOMMENDATIONS: 1. Hepatitis B and C serologies. 2. Repeat PT/INR in a.m. 3. Ultrasound with elastography of the liver. 4. Follow up serum ammonia, pending above studies. 5. FibroSure test. DISCUSSION: A 64-year-old female who is seen regarding evaluation of an elevation of her serum ammonia, which has been noted to be 108. The patient states that she is not aware of having any history of liver disease. She apparently has had periods of mild congestive heart failure. She has not been experiencing any abdominal pain and has not had any known family history of liver pathology. She has not had any history of alcohol use nor has she had any family members with liver disease. The patient with history of mild congestive heart failure and has been associated with some pericardial effusion and some previous history of ascites, felt possibly related to constrictive pericarditis. REVIEW OF SYSTEMS: CARDIOPULMONARY: Presently, no chest pain. Shortness of breath may occur with exertion. PAST MEDICAL HISTORY: Has included essential hypertension. Paroxysmal atrial fibrillation, on anticoagulant therapy with Eliquis, diabetes mellitus. Congestive heart failure. Previous PCI with one coronary stent in place. Exogenous obesity. Status post cholecystectomy. End-stage renal disease, on dialysis. FAMILY HISTORY: No family history of liver disease. ALLERGIES: NONE KNOWN. HABITS: The patient denies cigarette as well as alcohol use. HOME MEDICATIONS: Have included amiodarone, Eliquis, Bumex, clopidogrel, Zetia, furosemide, gabapentin, Robaxin, Novolin 70/30, rosuvastatin and sevelamer. PATIENT NAME: ELVIS FREEMAN PHYSICAL EXAMINATION: VITAL SIGNS: Height 5 feet 3 inches, weight 69.8 kilograms. Temperature 38.9, pulse of 87, respirations 17, blood pressure is 107/49. GENERAL: The patient is alert, responsive. She is in no acute distress. SKIN: Moist. LYMPHATICS: No supraclavicular, no axillary adenopathy. HEENT: Eyes: Pupils are round. The patient is not icteric. Nose: Nasal septum is in midline. NECK: Supple, without mass. LUNGS: Clear. No wheezing or rales. HEART: There is a grade I/ midsystolic murmur. No diastolic murmurs. No clicks, no rubs. CHEST WALL: Nontender. ABDOMEN: Soft. Surgical scars well healed. Bowel sounds are present. There is no palpable mass. Liver and spleen did not appear to be enlarged. There is no gross evidence of ascites on exam. EXTREMITIES: No edema or cyanosis. NEUROLOGIC: The patient is alert without focal deficit. LABORATORY STUDIES: Serum ammonia is 108. Potassium is 4.6, glucose is 176, creatinine is 2.8, albumin is 3.5, AST is 24, ALT 18, alkaline phosphatase is 93. Magnesium is 2.4. Troponin is 72.5. PT/INR is 32.4 and 2.94. H and H is 7.4 and 25.8 with WBC of 9900. ASSESSMENT: The patient has normal liver enzymes; however, has a history of constrictive pericarditis along with apparently a previous history of ascites. Would screen liver further for excessive fibrosis with a elastography as well as FibroSure test. Need to be sure that no underlying viral infection such as hepatitis B or C is present as well. The patient's degree of congestive heart failure and hepatic congestion could be a factor alone contributing to elevation of ammonia. Thank you for letting me to share in the care of this patient. We will follow her along with you as needed during hospitalization. Dictated By: Deyvi Melchor Jr, MD Date Dictated: 05/06/2024 15:57:03 Date Transcribed: 05/06/2024 17:07:46 CHIVO/DEAN/DEBRA Receipt ID: [id number] Authenticated by Deyvi Melchor MD On 05/08/2024 02:44:01 PM at 0244 PATIENT NAME: ELVIS FREEMAN [facility] 2024-05-06 12:15:00 [facility] ([facility]) Med Order Sheet REPORT #: [id number] REPORT STATUS: Signed DATE: 05/06/24 TIME: 1215 PATIENT: ELVIS FREEMAN UNIT #: [id number] ROOM #: P.0405 BED: A : 61 AGE: 64 SEX: F ATTEND: Concepcion Tierney MD ADM AUTHOR: Concepcion Tierney MD ATTENT ION *EDITS and/or ADDENDA must be made in Patient Keeper for this note. * * Edits and ammendments created in [facility] are not visible * * in Patient Keeper or the legal medical record (HPF). * Admission Medication Reconciliation -- CONTINUED / CHANGED HOME MEDICATIONS -- Home: Amiodarone Tab (Cordarone Tab) 200 MG PO DAILY Hosp: Existing: Amiodarone Tab (Cordarone Tab) 200MG PO DAILY stopping on 06/05 at 12:16 Home: bumetanide tablet 2 MG PO DAILY Hosp: Bumetanide Tab (Bumex Tab) 2 MG PO DAILY Home: Clopidogrel Tab (Plavix Tab) 75 MG PO DAILY Hosp: Clopidogrel Tab (Plavix Tab) 75 MG PO DAILY Home: Ezetimibe Tab (Zetia Tab) 10 MG PO DAILY Hosp: Existing: Ezetimibe Tab (Zetia Tab) 10MG PO DAILY stopping on 06/05 at 12:21 Home: Gabapentin Cap (Neurontin Cap) 200 MG PO BID 9A 5P Hosp: Gabapentin Cap (Neurontin Cap) 200 MG PO BID 9A 5P Home: Methocarbamol Tab (Robaxin Tab) 500 MG PO QID Hosp: Methocarbamol Tab (Robaxin Tab) 500 MG PO QID Home: Novolin 70/30 susp (insulin NPH and regular human) 15 UNITS SubQ BID AC Hosp: Novolin 70/30 susp (insulin NPH and regular human) 15 UNITS SubQ BID AC Home: Rosuvastatin Tab (Crestor Tab ) 20 MG PO DAILY 1700 Hosp: Rosuvastatin Tab (Crestor Tab ) 20 MG PO DAILY 1700 Home: Sevelamer Carbonate Tab (Renvela Tab) 800 MG PO TID MEALS Hosp: Sevelamer Carbonate Tab (Renvela Tab) 800 MG PO TID MEALS -- STOPPED HOME MEDICATIONS -- Home: Apixaban Tab (Eliquis Tab) 5 MG PO BID Home: Furosemide Tab (Lasix Tab) 40 MG PO BID (BID ON NON DIALYSIS DAYS ONLY (SPECIFICALLY TUESDAY, ...) at 1215 ATTENT ION *EDITS and/or ADDENDA must be made in Patient Keeper for this note. * * Edits and ammendments created in [facility] are not visible * * in Patient Keeper or the legal medical record (HPF). * RPT #: [id number] END OF REPORT [facility] 2024-05-06 12:05:00 [facility] ([facility]) Nephrology Consultation REPORT #: [id number] REPORT STATUS: Signed DATE: 05/06/24 TIME: 1205 PATIENT: ELVIS FREEMAN UNIT #: [id number] [facility] B[facility]: A : 61 AGE: 64 SEX: F ATTEND: Concepcion Tierney MD ADM AUTHOR: Kenzie Medina MD ATTENT ION *EDITS and/or ADDENDA must be made in Patient Keeper for this note. * * Edits and ammendments created in [employer] are not visible * * in Patient Keeper or the legal medical record (HPF). * Note Date: 05/06/24 12:05 -- ASSESSMENT/PLAN -- GENERAL ASSESSMENT: The patient is a 64-year-old female with hypertension, diabetes, paroxysmal Afib (on Eliquis), heart failure with preserved ejection fraction (HFpEF), ESRD, who was admitted to [facility] on 04/29/2024 with worsening shortness of breath. She also has a history of coronary artery disease and has undergone PCI [place] in the past. She was found to have a moderate circumferential pericardial effusion septal shift. 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 Labs on admission there - NT-ProBNP 7204, Trop I 97.7, INR 3.01, Hgb 7.6, WBC 12.8, plt 483, Cr 2.3. CRP 3.8, ESR 62. ASSESSMENT PLAN: 1: Chest pain 2: Coronary artery disease 3: Heart failure with preserved ejection fraction 4: ESRD (end stage renal disease) 5: Essential (primary) hypertension 6: Anemia in chronic kidney disease 7: Renal osteodystrophy ADDITIONAL COMMENTS: no urgent need for [employer] today. follow outpatient schedule for HD. orders given and reviewed. -- HISTORY -- REASON FOR CONSULT: ESRD CHIEF COMPLAINT: SOB HPI: The patient is a 64-year-old female with past medical history significant for congestive heart failure, HANNAH, hypertension, hyperlipidemia, and diabetes mellitus type 2, ESRD, patient was transferred to [facility] for cardiovascular evaluation. The patient is awake and responsive. Complains of dyspnea. Complains of orthopnea. Denies any recent travel. Denies any sick contact. PAST MEDICAL HISTORY: As mentioned above. PAST SURGICAL HISTORY: Renal access placement. REVIEW OF SYSTEMS: ____ 12-point review otherwise negative if not mentioned. ALLERGIES: NONE LISTED. HOME MEDICATIONS: List reconciled. SOCIAL HISTORY: Lives with family. Denies smoking or drug abuse. FAMILY HISTORY: Noncontributory. PAST MEDICAL HISTORY: as in HPI PAST SURGICAL HISTORY: as in HPI FAMILY HISTORY: unremarkable Social History Vaping/Inhaled solvents: DETAILS/COMMENTS: none Alcohol use: DETAILS/COMMENTS: none Drug use: DETAILS/COMMENTS: none -- ALLERGIES/HOME MEDS -- Modifications made in this section do not update Allergy and Home Medication List ALLERGIES - No Known Allergies ( UNKNOWN - Allergy ) -- SUBJECTIVE -- REVIEW OF SYSTEMS: Comment 10 Point ROS negative unless otherwise stated. -- EXAM -- VITALS (05/05 12:05 - 05/06 12:05): Pulse Rate: 98 (84 - 102) Blood pressure: 137/60 (111/55 - 176/81) Respiratory rate: 23 (17 - 23) Temperature F: 99.7 Temperature C: 38.9 (37.5 - 38.9) Blood pressure source: Monitor IOS (05/05 07:00-05/06 07:00): [id number] Amount taken:100 Oral ml:120 EXAM: Other: Constitutional: Well developed, well nourished patient, in no acute distress. Derm/Integumentary: Warm and dry with no rashes, sores, or lesions. Mouth: Mucosa moist and pink with no lesions. Neck: supple with no masses, no thyromegaly, No JVD. Respiratory: Clear to auscultation. Heart: S1S2+, RRR, + systolic murmur Gastrointestinal: + Bowel Sounds all quadrants. Soft, nontender with no masses or organomegaly. Musculoskeletal: Equal strength in all extremities. No weakness. Neurology: Alert and oriented X 3. Calm, cooperative affect. No focal deficits. Extremities: + peripheral pulses. No clubbing, cyanosis. No lower extremity edema. -- DATA -- ALLERGIES MEDICATIONS AMIODARONE HCL 200 MG PO DAILY EZETIMIBE 10 MG PO DAILY GLUCAGON 1 MG IM ASDIR (PRN) diphenhydrAMINE HCL 25 MG PO Q6H PRN INSULIN LISPRO INSULIN SLIDING SCALE SUBQ AC HS LACTULOSE 30 ML PO Q6H DOCUSATE SODIUM 100 MG PO BID IPRATROPIUM/ALBUTEROL SULFATE 3 ML NEB RTQ4H PRN traMADol HCL 50 MG PO Q6H PRN ACETAMINOPHEN 650 MG PO Q4H PRN ONDANSETRON HCL/PF 4 MG IV Q6H PRN COLCHICINE 0.3 MG PO DAILY hydrALAZINE HCL 10 MG IV Q6H PRN morphine SULFATE 2 MG IV Q4H PRN DEXTROSE 50%-WATER 25 ML IV ASDIR (PRN) guaiFENesin/D-METHORPHAN 5 ML PO Q6H PRN polyethylene glycoL 3350 1 PKT PO DAILY LAB RESULTS PROTHROMBIN TIME (05/06/24 00:50) INTERNATIONAL NORMAL RATIO 2.95 H PROTHROMBIN TIME PATIENT 32.4 H LIPID PROFILE (CORONARY RISK) (05/06/24 00:50) CORONARY RISK FACTOR 1.91 LIPOPROTEIN LDL 15 HDL CHOLESTEROL 34 L CHOLESTEROL 65 TRIGLYCERIDES 78 COMPREHENSIVE METABOLIC PANEL (05/06/24 00:50) ALBUMIN 3.5 TOTAL PROTEIN 6.6 CREATININE 2.8 H GLOMERULAR FILTRATION RATE 18 L BLOOD UREA NITROGEN 11 GLUCOSE 176 H CARBON DIOXIDE 27 CHLORIDE 102 POTASSIUM 4.6 SODIUM 136 ALKALINE PHOSPHATASE 93 SGPT/ALT 18 SGOT/AST 24 BILIRUBIN TOTAL 0.4 CALCIUM 8.4 L PHOS (05/06/24 00:50) PHOSPHOROUS 3.8 AMM (05/06/24 00:50) AMMONIA 108 *H LIVER FUNCTION PANEL (05/06/24 00:50) ALKALINE PHOSPHATASE 93 SGPT/ALT 18 SGOT/AST 24 BILIRUBIN DIRECT 0.2 BILIRUBIN TOTAL 0.4 ALBUMIN 3.5 TOTAL PROTEIN 6.6 HGBA1C - GLYCOSYLATED HGB (05/06/24 00:50) GLYCOSYLATED HEMOGLOBIN (HA1C) 8 H BNP (05/06/24 00:50) B-TYPE NATRIURETIC PEPTIDE 953 H CBC W/O DIFF (05/06/24 00:50) PLATELET COUNT 511H H RED CELL DISTRIBUTION WIDTH 16.9 MEAN CELL HGB CONCENTRATION 28.7 L MEAN CELL HGB 24 L MEAN CELL VOLUME 83.8 HEMATOCRIT 25.8L L HEMOGLOBIN 7.4L L RED BLOOD CELL 3.08 L WHITE BLOOD CELL 9.9 TSH (05/06/24 00:50) THYROID STIMULATING HORMONE 0.66 CK (05/06/24 00:50) CREATINE KINASE (CK) 40 MAG (05/06/24 00:50) MAGNESIUM 2.4 URIC ACID (05/06/24 00:50) URIC ACID 3.3 TROPI (05/06/24 00:50) TROPONIN-I 72.5 *H GLU BED (05/06/24 07:13) GLUBED 126 H HCVAB (05/06/24 08:26) AB HEPATITIS C Nonreactive HBSAG (05/06/24 08:26) AG HEPATITIS B SURFACE Nonreactive HBSAB (05/06/24 08:26) AB HEPATITIS B SURFACE REACTIVE A GLU BED (05/06/24 11:39) GLUBED 199 H at 1641 ATTENT ION *EDITS and/or ADDENDA must be made in Patient Keeper for this note. * * Edits and ammendments created in [facility] are not visible * * in Patient Keeper or the legal medical record (HPF). * [facility] #: [id number] END OF REPORT [facility] 2024-05-06 11:29:00 [facility] ([facility]) Cardiology Consultation REPORT #: [id number] REPORT STATUS: Signed DATE: 05/06/24 TIME: 1129 PATIENT: ELVIS FREEMAN UNIT #: [id number] ROOM #: P.0405 BED: A : 61 AGE: 64 SEX: F ATTEND: Concepcion Tierney MD ADM AUTHOR: Lizzy Cantu NP ATTENT ION *EDITS and/or ADDENDA must be made in Patient Keeper for this note. * * Edits and ammendments created in [employer] are not visible * * in Patient Keeper or the legal medical record (HPF). * Attending: Celestino Vanessa MD 05/07/24 10:03 I have personally seen and examined the patient independently, and reviewed the patient's history, exam, and all cardiac and laboratory data on 05/06/24. I agree with the history, physical, and the assessment and plan as outlined by Lizzy Manning NP. Ms. 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 She is now readmitted with syncopal episode. - Will plan to get a CTA head and neck to make sure there is no carotid stenosis. - Patient will require left heart cath, right heart cath and constriction study. Physical Exam Gen: NAD, A Ox3 HEENT: anicteric sclera, MMM Neck: supple, no JVD CV: RRR, no m/r/g. Lungs: CTAB Abd: soft, NTND Ext: no c/c/e Neuro: non-focal Psych: alert, appropriate, mood and affect normal Note Date: 05/06/24 11:29 -- ASSESSMENT/PLAN -- GENERAL ASSESSMENT: The patient is a 64-year-old female with hypertension, diabetes, paroxysmal Afib (on Eliquis), heart failure with preserved ejection fraction (HFpEF), ESRD, who was admitted to [facility] on 04/29/2024 with worsening shortness of breath. She also has a history of coronary artery disease and has undergone PCI Jeronimo in the past. She was found to have a moderate circumferential pericardial effusion septal shift. 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 Labs on admission there - NT-ProBNP 7204, Trop I 97.7, INR 3.01, Hgb 7.6, WBC 12.8, plt 483, Cr 2.3. CRP 3.8, ESR 62. ASSESSMENT PLAN: 1: Chest pain A/P: Pericardial effusion noted on Echo. LVEF 50-55%, Grade 2 dd, moderate pericardial effusion, left pleural effusion, mild MR, mild TR. CRP 3.8, ESR 62. Start colchicine 0.3mg daily. Recheck in AM. Plan is for LHC/RHC in AM with simultaneous tracings to confirm pericardial constriction. Was on Eliquis at home for h/o Afib. Currently holding as INR is supratherapeutic Recheck INR In AM. May need FFP prior to procedure. Dr. Melchor was consulted as Ammonia is high as well and Liver US ordered. LFT's normal. NPO after midnight. 2: Coronary artery disease A/P: On rosuvastatin and will restart Zetia (home med). LDL is 15 Holding clopidogrel for now as she may need surgery or intervention. Starting IV Heparin once INR <2.0. 3: Heart failure with preserved ejection fraction A/P: On iHD for ESRD and for volume management Preserved ejection fraction on last Echo. On oral diuretic at home - can hold for now. -- HISTORY -- Consult requested by:CONCEPCION TIERNEY MD REASON FOR CONSULT: Pericardial constriction CHIEF COMPLAINT: Shortness of breath PAST MEDICAL HISTORY: Atrial fibrillation with RVR (03/2024) Coronary artery disease Diabetes ESRD Hypertension HFpEF PAST SURGICAL HISTORY: Dialysis access FAMILY HISTORY: Unknown. No early CAD in family members Social History Tobacco use: DETAILS/COMMENTS: Never smoked Vaping/Inhaled solvents: DETAILS/COMMENTS: Denies Alcohol use: DETAILS/COMMENTS: Deneis Drug use: DETAILS/COMMENTS: Denies -- ALLERGIES/HOME MEDS -- Modifications made in this section do not update Allergy and Home Medication List ALLERGIES - No Known Allergies ( UNKNOWN - Allergy ) -- SUBJECTIVE -- REVIEW OF SYSTEMS: Comment: 10 Point ROS negative unless otherwise stated. -- EXAM -- VITALS (05/05 11:29 - 05/06 11:29): Respiratory rate: 23 (17 - 23) Blood pressure source: Monitor Blood pressure: 137/60 (111/55 - 176/81) Pulse Rate: 98 (84 - 102) Temperature F: 99.7 Temperature C: 37.5 (37.5 - 37.9) IOS (05/05 07:00-05/06 07:00): [id number] Amount taken:100 Oral ml:120 EXAM: Other: Constitutional: Well developed, well nourished patient, in no acute distress. Derm/Integumentary: Warm and dry with no rashes, sores, or lesions. Mouth: Mucosa moist and pink with no lesions. Neck: supple with no masses, no thyromegaly, No JVD. Respiratory: Clear to auscultation. Heart: S1S2+, RRR, + systolic murmur Gastrointestinal: + Bowel Sounds all quadrants. Soft, nontender with no masses or organomegaly. Musculoskeletal: Equal strength in all extremities. No weakness. Neurology: Alert and oriented X 3. Calm, cooperative affect. No focal deficits. Extremities: + peripheral pulses. No clubbing, cyanosis. No lower extremity edema. -- DATA -- ALLERGIES MEDICATIONS GLUCAGON 1 MG IM ASDIR (PRN) diphenhydrAMINE HCL 25 MG PO Q6H PRN INSULIN LISPRO INSULIN SLIDING SCALE SUBQ AC HS LACTULOSE 30 ML PO Q6H DOCUSATE SODIUM 100 MG PO BID IPRATROPIUM/ALBUTEROL SULFATE 3 ML NEB RTQ4H PRN traMADol HCL 50 MG PO Q6H PRN ACETAMINOPHEN 650 MG PO Q4H PRN ONDANSETRON HCL/PF 4 MG IV Q6H PRN hydrALAZINE HCL 10 MG IV Q6H PRN morphine SULFATE 2 MG IV Q4H PRN DEXTROSE 50%-WATER 25 ML IV ASDIR (PRN) guaiFENesin/D-METHORPHAN 5 ML PO Q6H PRN polyethylene glycoL 3350 1 PKT PO DAILY LAB RESULTS PROTHROMBIN TIME (05/06/24 00:50) INTERNATIONAL NORMAL RATIO 2.95 H PROTHROMBIN TIME PATIENT 32.4 H LIPID PROFILE (CORONARY RISK) (05/06/24 00:50) CORONARY RISK FACTOR 1.91 LIPOPROTEIN LDL 15 HDL CHOLESTEROL 34 L CHOLESTEROL 65 TRIGLYCERIDES 78 COMPREHENSIVE METABOLIC PANEL (05/06/24 00:50) ALBUMIN 3.5 TOTAL PROTEIN 6.6 CREATININE 2.8 H GLOMERULAR FILTRATION RATE 18 L BLOOD UREA NITROGEN 11 GLUCOSE 176 H CARBON DIOXIDE 27 CHLORIDE 102 POTASSIUM 4.6 SODIUM 136 ALKALINE PHOSPHATASE 93 SGPT/ALT 18 SGOT/AST 24 BILIRUBIN TOTAL 0.4 CALCIUM 8.4 L PHOS (05/06/24 00:50) PHOSPHOROUS 3.8 AMM (05/06/24 00:50) AMMONIA 108 *H LIVER FUNCTION PANEL (05/06/24 00:50) ALKALINE PHOSPHATASE 93 SGPT/ALT 18 SGOT/AST 24 BILIRUBIN DIRECT 0.2 BILIRUBIN TOTAL 0.4 ALBUMIN 3.5 TOTAL PROTEIN 6.6 HGBA1C - GLYCOSYLATED HGB (05/06/24 00:50) GLYCOSYLATED HEMOGLOBIN (HA1C) 8 H BNP (05/06/24 00:50) B-TYPE NATRIURETIC PEPTIDE 953 H CBC W/O DIFF (05/06/24 00:50) PLATELET COUNT 511H H RED CELL DISTRIBUTION WIDTH 16.9 MEAN CELL HGB CONCENTRATION 28.7 L MEAN CELL HGB 24 L MEAN CELL VOLUME 83.8 HEMATOCRIT 25.8L L HEMOGLOBIN 7.4L L RED BLOOD CELL 3.08 L WHITE BLOOD CELL 9.9 TSH (05/06/24 00:50) THYROID STIMULATING HORMONE 0.66 CK (05/06/24 00:50) CREATINE KINASE (CK) 40 MAG (05/06/24 00:50) MAGNESIUM 2.4 URIC ACID (05/06/24 00:50) URIC ACID 3.3 TROPI (05/06/24 00:50) TROPONIN-I 72.5 *H GLU BED (05/06/24 07:13) GLUBED 126 H HCVAB (05/06/24 08:26) AB HEPATITIS C Nonreactive HBSAG (05/06/24 08:26) AG HEPATITIS B SURFACE Nonreactive HBSAB (05/06/24 08:26) AB HEPATITIS B SURFACE REACTIVE A -- ATTESTATION -- Care Activities / Care Coordination I have reviewed the history and repeated the desai elements I have seen and examined this patient I have reviewed the progress in the clinical course since the last examination I have discussed the patient's condition with other members of the care team at 1003 at 1003 ATTENT ION *EDITS and/or ADDENDA must be made in Patient Keeper for this note. * * Edits and ammendments created in [facility] are not visible * * in Patient Keeper or the legal medical record (HPF). * [facility] #: [id number] END OF REPORT [facility] 2024-05-06 09:02:00 [id number] [facility] [address] [place] [address] PATIENT NAME: ELVIS FREEMAN ADMIT DATE: 05/05/24 ACCOUNT NO: [id number] ROOM NO: P.0405 AGE: 64 REPORT TYPE: HISTORY AND PHYSICAL SEX: F ADMITTING PHYSICIAN:Concepcion Tierney MD ATTENDING PHYSICIAN:Concepcion Tierney MD ADMISSION DATE: 05/05/2024 22:47:00 REASON FOR ADMISSION: Coronary artery disease, chest pain, CHF. HISTORY OF PRESENT ILLNESS: The patient is a 64-year-old female with past medical history significant for congestive heart failure, HANNAH, hypertension, hyperlipidemia, and diabetes mellitus type 2, ESRD, patient was transferred to [facility] for cardiovascular evaluation. The patient is awake and responsive. Complains of dyspnea. Complains of orthopnea. Denies any recent travel. Denies any sick contact. PAST MEDICAL HISTORY: As mentioned above. PAST SURGICAL HISTORY: Renal access placement. REVIEW OF SYSTEMS: ____ 12-point review otherwise negative if not mentioned. ALLERGIES: NONE LISTED. HOME MEDICATIONS: List reconciled. SOCIAL HISTORY: Lives with family. Denies smoking or drug abuse. FAMILY HISTORY: Noncontributory. PHYSICAL EXAMINATION: GENERAL: The patient in no acute respiratory distress. VITAL SIGNS: Blood pressure 132/60, heart rate 74, temperature 97.9, respiratory rate 14. HEENT: Head normocephalic. NECK: Supple. CHEST AND LUNGS: Bilateral breathing sounds. HEART: Normal S1, S2. ABDOMEN: Soft. Bowel sounds are present. EXTREMITIES: No edema. NEUROLOGIC: Awake and alert, nonfocal. PERTINENT FINDINGS: 1. INR is 2.9. 2. BNP 950. 3. Glucose 176. ASSESSMENT AND PLAN: PATIENT NAME: ELVIS FREEMAN 1. End-stage renal disease, on hemodialysis, ____ Tuesday. Dr. Mc, Nephrology consulted. 2. Coagulopathy and elevated ammonia. Ultrasound of liver ordered. Dr. Melchor, Gastroenterology, following the patient. 3. Level of care. The patient remains full code. 4. Diabetes mellitus type 2. SSI medium dose. Monitor blood glucose bedtime. 5. Atrial fibrillation, coronary artery disease. Echocardiogram will be obtained. Dr. Vanessa Cardiology, consulted. Dictated By: Concepcion Tierney MD Date Dictated: 05/06/2024 09:02:53 Date Transcribed: 05/06/2024 11:30:37 AMY/RICKIE Receipt ID: [id number] Authenticated by Concepcion Tierney MD On 05/06/2024 03:24:25 PM at 0324 PATIENT NAME: ELVIS FREEMAN [facility] 2024-05-05 15:43:00 [facility] ([facility]) EMERGENCY PROVIDER REPORT REPORT#:[id number] REPORT STATUS: Signed DATE:05/05/24 TIME:154 PATIENT: ELVIS FREEMAN UNIT #: [id number] ROOM/BED: : 61 AGE: 64 SEX: F PCP PHYS: Yaneth Hopson MD SERVICE AUTHOR: José Dickson MD REP SRV REP SRV TM: 1543 * ALL edits or amendments must be made on the electronic/computer document * José Dickson 05/05/24 1543: HPI-Syncope General Initial Greet Date/Time 05/05/24 1528 Presentation Chief Complaint Became unresponsive )( Onset Occurred Just prior to arrival Free Text HPI Notes Free Text HPI Notes 64-year-old female with history of end-stage renal disease on dialysis Tuesday, CHF chronic pericardial effusion chronic respiratory failure recent admission for pneumonia presents to the ED after syncope episode. Patient apparently was receiving dialysis 1.7 L was taken out. Patient had a syncope episode symptoms were brief no noted seizure-like activities. Patient currently denies any chest pain shortness of breath. Blood pressure was in the 90s systolic. Risk-Syncope Risk Stratification [place] Coma Score: Copyright Sir Ronnie Boland Copyright Sir Ronnie Boland Eye opening: (4) Spontaneous Verbal response: (5) Oriented Best motor response: (6) Obeys commands GCS Score: 15 )( Coronary Artery Disease Risk factors reviewed )( Thoracic Aortic Dissection Risk factors reviewed )( Pulmonary Embolism Risk factors reviewed HEART for MACE HEART for MACE Response Value History Low index of suspicion 0 ECG Interpretation Nonspec repol disturb 1 Age Age 65 or over 2 Risk Factors for CAD 3+ CAD risk factors 2 Troponin 1 to 3x NL troponin 1 Total 6 HEART Score for MACE 4-7 (mod risk 12%-16.6%) Review of Systems ROS Statements All systems rev neg except as marked. Past Medical History - Adult Stated Complaint SYNCOPE AT DIALYSIS Allergies Coded Allergies: No Known Allergies (04/19/24) Home Medications Active Scripts AMIODARONE (PACERONE) 200 MG PO DAILY AMIODARONE (PACERONE) 200 MG PO DAILY #30 TAB Ref 3 Prov: 05/03/24 FUROSEMIDE (LASIX) 40 MG PO BID FUROSEMIDE (LASIX) 40 MG PO BID #32 TABS Ref 2 Prov: 05/03/24 Reported Medications APIXABAN (ELIQUIS) 5 MG PO BID methocarbamoL (ROBAXIN) 500 MG PO QID BUMETANIDE (BUMEX) 2 MG PO DAILY CLOPIDOGREL (PLAVIX) 75 MG PO DAILY EZETIMIBE 10 MG PO DAILY GABAPENTIN (NEURONTIN) 200 MG PO BID INSULIN NPH/REG INSULIN HUM (NovoLIN 70/30) 15 UNITS SUBQ BID ROSUVASTATIN 20 MG PO DAILY SEVELAMER CARBONATE (RENVELA) 800 MG PO TID MEALS Past Medical History: Reports: Kidney disease/stones. Additional Surgical History Reviewed. Additional Family History Noncontributory. Smoking status for patients 13 years old or older: Unknown,if ever smoked Physical Exam Vital Signs Review of Vital Signs Reviewed Focused PE General/Const Text/Dict Notes Chronically ill-appearing MS Head Head Normocephalic Eyes Eyes PERRL, EOMI, Conjunctiva NL Ears/Nose/Throat Ears/Nose/Throat Airway patent, Mucous membranes moist, Pharynx NL MS Neck Neck Supple, Full range of motion, No swelling, Non-tender Resp/Chest Text/Dict Notes Diminished breath sounds with crackles at the bases Cardiovascular Cardiovascular Heart sounds NL, No murmurs, Cap refill not delayed, Peripheral circulation NL Heart Sounds/Murmur Murmur present. Abdomen/GI Abdomen/GI Soft, Non-tender, No guarding, No rebound MS Back Back Inspection NL, Non-tender, No CVA tenderness MS Lower Extrem Lower Ext/Pelvis/MS Inspection NL, No swelling, Non-tender, No erythema, No deformity, Neurologic intact, Vascular intact, No edema Skin Skin Color NL, Warm, Dry, Turgor NL Neurologic Neurologic Oriented X3, Speech NL, No motor deficits, No sensory deficits, CN II - XII intact, Cerebellar NL Psychiatric Psychiatric Affect NL, Mood NL, Cognitive function NL, Thought content NL Interpretation Diagnostics Lab Results Interpretation Considerations Independ review imaging, Reviewed prior records Results Laboratory Tests 05/05/24 1553: [Embedded Image Not Available] Laboratory Tests: 05/05 05/05 05/05 1553 1553 1552 Chemistry Sodium (136 - 145 mmol/L) 136 Potassium (3.4 - 5.0 mmol/L) 3.6 Chloride (98 - 107 mmol/L) 97 L Carbon Dioxide (21 - 32 mmol/L) 27 Anion Gap (4 - 15 GAP calc) 12 BUN (7 - 18 MG/DL) 9 Creatinine (0.6 - 1.0 MG/DL) 2.3 H Glomerular Filtr Rate (>60 estGFR) 23 L Glucose (70 - 110 MG/DL) 174 H Lactic Acid (0.4 - 1.9 mmol/L) 1.6 Calcium (8.5 - 10.1 MG/DL) 8.6 Total Bilirubin (0.0 - 1.0 MG/DL) 0.5 Direct Bilirubin (0.0 - 0.3 MG/DL) 0.2 Indirect Bilirubin (0.2 - 1.2 MG/DL) 0.30 AST (15 - 37 Unit/L) 31 ALT (30 - 65 Unit/L) 30 Total Alk Phosphatase (50 - 136 Unit/L) 102 Troponin I High Sens (0 - 54 ng/L) 97.7 H NT-Pro-B Natriuret Pep (0 - 100 PG/ML) 7204 H Total Protein (6.4 - 8.2 G/DL) 7.2 Albumin (3.4 - 5.0 G/DL) 2.5 L Lipase (13 - 75 Unit/L) 61 Coagulation INR (0.8 - 1.2 INR Unit) 3.01 H PTT (Jordy) (26 - 35 SECONDS) 44.6 H PT Patient/Control Mix (9.3 - 12.9 SECONDS) 32.4 H Hematology WBC (3.5 - 11.0 K/mm3) 12.8 H RBC (4.70 - 6.10 M/mm3) 3.14 L Hgb (10.4 - 14.9 G/DL) 7.6 L Hct (31.5 - 44.1 %) 26.4 L MCV (84.5 - 98.6 Fl) 84.1 L MCH (27.0 - 34.2 pg) 24.2 L MCHC (31.5 - 34.0 G/DL) 28.8 L RDW (11.5 - 14.5 SD) 16.9 H Plt Count (150 - 450 K/mm3) 483 H MPV (7.0 - 10.5 fL) 10.70 H Neut % (Auto) (40 - 76 %) 81.2 H Lymph % (Auto) (20.5 - 51.1 %) 10.6 L Woodson % (Auto) (1.7 - 9.3 %) 5.8 Eos % (Auto) (0.0 - 6.0 %) 1.0 Baso % (Auto) (0.0 - 2.0 %) 0.8 Neut # (Auto) (1.8 - 7.6 K/mm3) 10.4 H Lymph # (Auto) (0.6 - 3.2 K/mm3) 1.4 Woodson # (Auto) (0.3 - 1.1 K/mm3) 0.7 Eos # (Auto) (0.0 - 0.4 K/mm3) 0.1 Baso # (Auto) (0.0 - 0.1 K/mm3) 0.1 Abs Immat Gran (auto) (0.00 - 0.03 x10 3/uL) 0.08 H Add Manual Diff (CRITERIA DIFF/SCN) NO Immature Gran % (0.0 - 5.0 %) 0.6 Nucleated RBC % (0.0 - 1.0 /100WBC%) 0.0 Platelet Estimate (ADEQUATE THOUSAND) ADEQUATE Plt Morphology Comment NORMAL Hypochromasia (NONE ON SCAN) 1+ Microbiology: Date/Time Procedure - Status Source Growth 05/05 1553 Blood Culture - RES BLOOD 05/05 1553 Blood Culture - RES BLOOD Recent Impressions: CAT SCAN - CT CHEST W/O CONTRAST 05/05 1551 Report Impression - Status: SIGNED Entered: 05/05/2024 1835 IMPRESSION: CT Chest Without Contrast; Diagnostic 1. Small to moderate bilateral pleural effusions, right greater than left. 2. Mild bibasilar atelectasis and/or consolidation. 3. Small to moderate pericardial effusion. 4. Overall, findings consistent with fluid over-loaded state with renal failure. CT Abdomen And Pelvis Without Contrast 1. Moderate amount of stool throughout the colon suggesting constipation. 2. Left adrenal nodule measuring 3.3 x 2.8 cm, 16 Hounsfield units (series 2, image 56). Recommend CT or MRI abdomen with and without contrast (adrenal mass protocol). 3. Small volume ascites. No definite cirrhosis or splenomegaly. Impression By: Jono Guadarrama M.D. CAT SCAN - CT ABD PELVIS W/O CONT 05/05 155 Report Impression - Status: SIGNED Entered: 05/05/2024 1735 IMPRESSION: CT Chest Without Contrast; Diagnostic 1. Small to moderate bilateral pleural effusions, right greater than left. 2. Mild bibasilar atelectasis and/or consolidation. 3. Small to moderate pericardial effusion. 4. Overall, findings consistent with fluid over-loaded state with renal failure. CT Abdomen And Pelvis Without Contrast 1. Moderate amount of stool throughout the colon suggesting constipation. 2. Left adrenal nodule measuring 3.3 x 2.8 cm, 16 Hounsfield units (series 2, image 56). Recommend CT or MRI abdomen with and without contrast (adrenal mass protocol). 3. Small volume ascites. No definite cirrhosis or splenomegaly. Impression By: Jono Guadarrama M.D. CAT SCAN - CT HEAD/BRAIN W/O CONT 05/05 155 Report Impression - Status: SIGNED Entered: 05/05/2024 1657 IMPRESSION: 1. No acute intracranial abnormality. 2. Mild chronic microangiopathic changes. Impression By: [email or web address] Virginia Stallings M.D Lab Statement Laboratory studies reviewed and considered in the medical decision-making. Imaging Statement Radiographic studies reviewed and considered in the medical decision-making. Lab Imaging Statement Laboratory radiographic studies reviewed and considered in the medical decision-making. Point of Care Testing Pulse Oximetry Pulse Ox % 98 On: Liters of oxygen Interpretation Mild desaturation ECG #1 Interpretation Text/Dict Note EKG reviewed by me at this time normal sinus rhythm at rate of [address] and T wave changes. No STEMI. Low voltage QRS. Date is May 05, 2024 time is 1530 8 PM. Re-Evaluation MDM Free Text MDM Notes Free Text MDM Notes Syncope chronic pleural effusion patient transferred for CT surgery evaluation. As per cardiology report patient will need left heart and right cath. Patient transferred to higher level of care [facility]ICU at [facility]. Additional Text Patient meets criteria for Severe Sepsis defined as: Known or suspected infection, 2 or more signs of SIRS, and organ dysfunction. Organ Dysfunction Criteria LACTIC ACID 2.1 - 3.9 CREATININE >2.0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 120/85 98 100 12/04 1255 85 15 149/67 96 100 12/04 1245 78 21 131/75 97 100 12/04 1243 75 12/04 1233 77 12/04 1230 36.6 79 20 131/75 100 Room air 12/04 1230 76 29 131/72 96 100 12/04 1215 77 22 133/73 98 100 12/04 1200 79 27 129/68 93 100 12/04 1145 80 23 131/66 94 100 12/04 1142 36.4 12/04 1130 81 30 134/63 88 100 12/04 1115 79 23 127/65 89 100 12/04 1100 80 21 122/63 87 100 12/04 1045 80 27 123/65 88 100 12/04 1030 80 24 119/64 85 100 12/04 1015 81 24 120/63 86 100 12/04 1000 80 16 114/59 80 99 12/04 0945 80 22 140/71 99 100 12/04 0930 83 19 118/63 85 100 12/04 0928 83 18 122/61 85 12/04 0925 37.0 82 20 101/58 100 Room air 12/ 0900 84 20 101/58 75 12/04 0859 36.8 12/ 0800 86 33 100 12/ 0700 83 18 104/56 75 97 12/04 0500 83 14 105/57 76 100 12/04 0416 85 24 127/58 83 100 12/04 0324 37.0 12/04 0300 78 0 113/53 75 97 12/04 0200 78 16 116/57 80 97 12/04 0100 81 13 131/64 90 96 12/04 0000 79 11 123/59 82 97 03 2331 37.3 12 2301 79 20 137/63 90 98 05/01 2200 76 17 110/54 75 98 24 hour I O ending at 0700: 05/02 0700 05/01 1900 Intake Total 200 660 Output Total 4000 Balance 200 -3340 Intake, Oral 200 660 Number Voids 2 Output, 4000 Hemodialysis PATIENT WEIGHT: Weight (lb): Weight (oz): Weight (kg): 81.818 Physical Exam General appearance: alert, awake, oriented HEENT: PERRL Cardiovascular: CV assessment: S3 present Respiratory: aerating well, clear to auscultation Abdomen: soft Lower extremity: LE assessment: normal capillary refill, 2+ pedal pulse Neuro/EMBOSSING TOOLSETTER: alert, oriented X 3 Diagnosis, Assessment Plan Problem List/A P: 1. Atrial fibrillation with rapid ventricular response 2. Hypotension 3. Shortness of breath 4. Abdominal distention 5. Volume overload 6. Pulmonary edema 7. Pericardial effusion 8. NSTEMI (non-ST elevated myocardial infarction) 9. Community acquired pneumonia 10. CHF exacerbation 11. Orthopnea 12. Dyspnea on exertion 13. History of end stage renal disease 14. 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 There is a moderate circumferential pericardial effusion that hopefully will become less with effusion. There is also considerable septal shift with respiration, and I am worried that she also has calcific constriction pericarditis on top. Her past history of anasarca will be explained because of this. -Please send ESR and CRP. -Continue with taking of fluids via dialysis. -Continue with apixaban -Continue with amiodarone 200 mg daily 05/01 -we will repeat echocardiogram to reevaluate effusion. Will also do a full constriction study. If there is still signs of constriction, she might require coronary angiogram and invasive hemodynamics. I have discussed the finding with our surgical colleague Dr. Bertram Brown as well 05/02 -will review echocardiogram. Based on results, might need left and right heart cath. Discussed with patient she is agreeable. Thank you for the consult. Please call us if you have any questions or concerns , at [phone] RPT #: [id number] END OF REPORT [facility] 2024-05-02 14:39:00 [facility] ([facility]) Hospitalist Progress Note REPORT#:[id number] REPORT STATUS: Signed REPORT INITIALIZATION DATE:05/02/24 TIME:1439 PATIENT: ELVIS FREEMAN UNIT #: [id number] ROOM/BED: [place] [id number] : 61 AGE: 64 SEX: F ATTEND: Winifred Marion MD ADM AUTHOR: Mushtaq Mayorga MD REPT SERVICE DT/TIME: 05/02/24 8159 * ALL edits or amendments must be made on the electronic/computer document * Subjective Chief complaint: Shortness of breath of 4 days duration HPI: 54-year-old woman with history of hypertension, diabetes, CHF and ESRD on hemodialysis who presented to the ED complaining of shortness of breath of 4 days duration. The patient endorsed having increased work of breathing with cough when she lays on her back. She mentioned that she was admitted recently to our hospital and discharged few days ago. She said that she was having shortness of breath on discharge and actually did not get better. The patient mentioned that she goes to dialysis every 3 days and she had her session yesterday. She said that she felt better after they took about 2 L and a half after the dialysis session but she felt worse for today. She mentioned that she was on antibiotics in the prior admission. She denied having any sick contacts at home. Chest x-ray done on admission showed pleural effusion with possible pneumonia versus atelectasis. Review of Systems Free Text ROS Notes Free Text ROS Notes: She endorsed having shortness but improved. She denied having fever, chills or sweating. She denied having chest pain, headache or blurry vision. She denied having diarrhea or urination issues as she is still making urine. Objective General VS/I O: Vital Signs: Date Time Temp Pulse Resp B/P B/P Pulse O2 O2 Flow FiO2 Mean Ox Delivery Rate 05/02 1924 37.3 05/02 1900 85 15 104/57 76 94 05/02 1830 87 30 119/65 84 100 05/02 1800 82 17 122/58 83 95 05/02 1730 82 17 107/64 81 100 05/02 1701 82 22 107/59 78 99 05/02 1646 37.1 05/02 1645 82 05/02 1631 79 15 112/55 77 99 05/02 1600 80 18 113/50 72 100 05/02 1530 81 19 111/60 79 97 05/02 1500 81 20 123/58 83 100 05/02 1430 81 18 104/56 75 100 05/02 1400 83 43 100 05/02 1330 83 22 120/85 98 100 05/02 1255 85 15 149/67 96 100 05/02 1245 78 21 131/75 97 100 12/04 1243 75 12/04 1233 77 12/04 1230 36.6 79 20 131/75 100 Room air 12/04 1230 76 29 131/72 96 100 12/04 1215 77 22 133/73 98 100 12/04 1200 79 27 129/68 93 100 12/04 1145 80 23 131/66 94 100 12/04 1142 36.4 12/04 1130 81 30 134/63 88 100 12/04 1115 79 23 127/65 89 100 12/04 1100 80 21 122/63 87 100 12/04 1045 80 27 123/65 88 100 12/04 1030 80 24 119/64 85 100 12/04 1015 81 24 120/63 86 100 12/04 1000 80 16 114/59 80 99 12/04 0945 80 22 140/71 99 100 12/04 0930 83 19 118/63 85 100 12/04 0928 83 18 122/61 85 12/04 0925 37.0 82 20 101/58 100 Room air 12/ 0900 84 20 101/58 75 12/04 0859 36.8 12/04 0800 86 33 100 12/04 0700 83 18 104/56 75 97 12/04 0500 83 14 105/57 76 100 12/04 0416 85 24 127/58 83 100 12/04 0324 37.0 12/04 0300 78 0 113/53 75 97 12/04 0200 78 16 116/57 80 97 12/04 0100 81 13 131/64 90 96 12/04 0000 79 11 123/59 82 97 /03 2331 37.3 05/01 2301 79 20 137/63 90 98 / 2200 76 17 110/54 75 98 12/03 2100 80 23 127/59 85 97 05/01 2000 79 20 117/55 76 96 24 hour I O ending at 0700: 12 0700 12 1900 Intake Total 200 660 Output Total 4000 Balance 200 -3340 Intake, Oral 200 660 Number Voids 2 Output, 4000 Hemodialysis PATIENT WEIGHT: Weight (lb): Weight (oz): Weight (kg): 81.818 Medications: Active Meds + DC'd Last 24 Hrs Insulin Glargine (Lantus/Semglee) 14 UNIT BEDTIME SUBQ Insulin Human Lispro (Admelog) 3 UNIT AC SUBQ Clopidogrel Bisulfate (Plavix) 75 MG DAILY PO Sodium Chloride (0.9% Sodium Chloride) 2,000 ML .Q24H PRN IV Sodium Chloride (0.9% Sodium Chloride) 2,000 ML .Q24H PRN IV (DC) Doxycycline Hyclate (VIBRAMYCIN) 100 MG BID PO Amiodarone HCl (CORDARONE) 200 MG DAILY PO Atorvastatin Calcium (LIPITOR) 40 MG DAILY PO Bumetanide (BUMEX) 2 MG DAILY PO Ezetimibe (ZETIA) 10 MG DAILY PO Gabapentin (NEURONTIN) 200 MG BID PO Polyethylene Glycol (MIRALAX) 17 GM DAILY PO Dextrose (GLUCOSE) 4 GM ASDIR PRN PO Dextrose/Water (DEXTROSE 10% IN WATER 250 ML) 250 ML ASDIR IV Glucagon (GLUCAGON) 1 MG ASDIR PRN IM Sevelamer Carbonate (RENVELA) 800 MG TID MEALS PO Apixaban (ELIQUIS) 5 MG Q12HR PO Insulin Glargine (Lantus/Semglee) 10 UNIT BEDTIME SUBQ (DC) Melatonin (Melatonin) 5 MG BEDTIME PO Acetaminophen (TYLENOL) 650 MG Q4H PRN PRN PO Hydralazine HCl (APRESOLINE) 10 MG Q6H PRN PRN IV Hydrocodone Bitart/Acetaminophen (NORCO 5/325) 1 TAB Q4H PRN PRN PO Ondansetron HCl (ZOFRAN) 4 MG Q4H PRN PRN IV Tramadol HCl (ULTRAM) 50 MG Q4H PRN PRN PO Insulin Human Lispro (Admelog) 0 AC HS SUBQ Heparin Sodium (HEPARIN SODIUM) 3,600 UNITS ASDIR PRN IV Ceftriaxone Sodium (ROCEPHIN) 2,000 MG Q24H IV Sterile Water (WATER FOR INJECTION) 20 ML Albumin Human (ALBUMINAR-25% 12.5 GM/50 ML) 25 GM BOLUS PRN IV Mannitol (MANNITOL 25%) 12.5 GM BOLUS PRN IV Dietitian nutrition assessment The data set between the solid lines has been imported from the dietitian's assessment. BMI Calculated: 32.0 Nutrition related diagnosis: Nutrition diagnosis details: Nutrition problem: Nutrition etiology: Nutrition signs and symptoms: Nutrition prescription: Dietitian name: Assessment completed: Free Text Obj Notes Free Text Obj Notes: General: Alert and oriented, did not look to be in distress Respiratory: No respiratory distress while being on nasal cannula for oxygen supply Cardiovascular: Regular rate, right chest permanent catheter for dialysis with no surrounding erythema or drainage Abdomen: Soft Musculoskeletal: No edema Neurology: No focal deficits Psychiatry: Calm Diagnosis, Assessment Plan Problem List/A P: 1. Hyperglycemia 2. History of end stage renal disease 3. Dyspnea on exertion 4. CHF exacerbation 5. Community acquired pneumonia 6. Pericardial effusion Orders: Procedure Date/time Status EVAL OT MOD COMPLEX [id number] 05/02 1626 Active Free Text DxA P Notes Free text DxA P notes: #Acute hypoxemic respiratory failure requiring O2 supply by nasal cannula. stable on room air #Suspected underlying pneumonia (could be viral, not necessarily bacterial) versus pulmonary edema Plans: -Continue on ceftriaxone and doxycycline for total of 5 days, stop date on 05/03 -Resumed her home meds as tolerated mainly the antihypertensives and antidiabetes,continue on lantus for baseline glucose control in addition to low sliding scale -Eliquis is documented as part of her medication so resumed -Follow up with cardiology and nephrology recommendations - Repeat echo planned to eval pericardial effusion. Disposition pending clinical improvement and clearance from nephrology as more dialysis is required in the inpatient settings before discharge at 1959 RPT #: [id number] END OF REPORT [facility] 2024-05-02 10:02:00 [facility] ([facility]) Nephrology Progress Note REPORT#:[id number] REPORT STATUS: Signed REPORT INITIALIZATION DATE:05/02/24 TIME:1002 PATIENT: ELVIS FREEMAN UNIT #: [id number] ROOM/BED: [place] [id number] : 61 AGE: 64 SEX: F ATTEND: Winifred Marion MD ADM AUTHOR: Anson Duncan MD REPT SERVICE DT/TIME: 05/02/24 1002 * ALL edits or amendments must be made on the electronic/computer document * Subjective HPI: 54-year-old female with history of hypertension, diabetes, CHF, ESRD on hemodialysis,, presented to emergency room complaining of shortness of breath. Patient is ESRD on hemodialysis, hemodialysis on Tuesday and Tuesday. Last dialysis yesterday. Labs reviewed. Chest x-ray reviewed. Renal consulted for inpatient dialysis. Comments: denies sob Review of Systems Free Text ROS Notes Free Text ROS Notes: 10 point review of system performed documented subjective, otherwise negative. Objective General VS/I O: Vital Signs: Date Time Temp Pulse Resp B/P B/P Pulse O2 O2 Flow FiO2 Mean Ox Delivery Rate 05/02 1233 77 05/02 1230 36.6 79 20 131/75 100 Room air 05/02 1230 76 29 131/72 96 100 05/02 1215 77 22 133/73 98 100 / 1200 79 27 129/68 93 100 / 1145 80 23 131/66 94 100 / 1142 36.4 12/ 1130 81 30 134/63 88 100 / 1115 79 23 127/65 89 100 / 1100 80 21 122/63 87 100 / 1045 80 27 123/65 88 100 / 1030 80 24 119/64 85 100 12/ 1015 81 24 120/63 86 100 12/04 1000 80 16 114/59 80 99 / 0945 80 22 140/71 99 100 / 0930 83 19 118/63 85 100 / 0928 83 18 122/61 85 / 0925 37.0 82 20 101/58 100 Room air / 0900 84 20 101/58 75 / 0859 36.8 / 0800 86 33 100 / 0700 83 18 104/56 75 97 / 0500 83 14 105/57 76 100 / 0416 85 24 127/58 83 100 05/02 0324 37.0 05/02 0300 78 0 113/53 75 97 05/02 0200 78 16 116/57 80 97 / 0100 81 13 131/64 90 96 / 0000 79 11 123/59 82 97 05/01 2331 37.3 05/01 2301 79 20 137/63 90 98 05/01 2200 76 17 110/54 75 98 / 2100 80 23 127/59 85 97 05/01 2000 79 20 117/55 76 96 05/01 1936 37.0 05/01 1900 81 17 119/58 83 98 05/01 1800 84 18 101/49 71 100 05/01 1750 86 14 112/55 79 100 05/01 1616 36.4 05/01 1600 80 16 117/60 83 99 / 1500 79 13 112/62 82 98 24 hour I O ending at 0700: 05/02 0700 05/01 1900 Intake Total 200 660 Output Total 4000 Balance 200 -3340 Intake, Oral 200 660 Number Voids 2 Output, 4000 Hemodialysis Medications Active Meds + DC'd Last 24 Hrs Sodium Chloride (0.9% Sodium Chloride) 2,000 ML .Q24H PRN IV Sodium Chloride (0.9% Sodium Chloride) 2,000 ML .Q24H PRN IV (DC) Doxycycline Hyclate (VIBRAMYCIN) 100 MG BID PO Amiodarone HCl (CORDARONE) 200 MG DAILY PO Atorvastatin Calcium (LIPITOR) 40 MG DAILY PO Bumetanide (BUMEX) 2 MG DAILY PO Ezetimibe (ZETIA) 10 MG DAILY PO Gabapentin (NEURONTIN) 200 MG BID PO Polyethylene Glycol (MIRALAX) 17 GM DAILY PO Dextrose (GLUCOSE) 4 GM ASDIR PRN PO Dextrose/Water (DEXTROSE 10% IN WATER 250 ML) 250 ML ASDIR IV Glucagon (GLUCAGON) 1 MG ASDIR PRN IM Sevelamer Carbonate (RENVELA) 800 MG TID MEALS PO Apixaban (ELIQUIS) 5 MG Q12HR PO Insulin Glargine (Lantus/Semglee) 10 UNIT BEDTIME SUBQ Melatonin (Melatonin) 5 MG BEDTIME PO Acetaminophen (TYLENOL) 650 MG Q4H PRN PRN PO Hydralazine HCl (APRESOLINE) 10 MG Q6H PRN PRN IV Hydrocodone Bitart/Acetaminophen (NORCO 5/325) 1 TAB Q4H PRN PRN PO Ondansetron HCl (ZOFRAN) 4 MG Q4H PRN PRN IV Tramadol HCl (ULTRAM) 50 MG Q4H PRN PRN PO Insulin Human Lispro (Admelog) 0 AC HS SUBQ Heparin Sodium (HEPARIN SODIUM) 3,600 UNITS ASDIR PRN IV Ceftriaxone Sodium (ROCEPHIN) 2,000 MG Q24H IV Sterile Water (WATER FOR INJECTION) 20 ML Albumin Human (ALBUMINAR-25% 12.5 GM/50 ML) 25 GM BOLUS PRN IV Mannitol (MANNITOL 25%) 12.5 GM BOLUS PRN IV Physical Exam General appearance: awake Head/eyes: normocephalic ENT: normal nose Neck: no JVD C-Spine clearance: no midline tenderness Cardiovascular: no murmur, no rub Respiratory: clear to auscultation Abdomen: non-tender, soft Genitourinary: no bladder distention Extremities: pitting edema Musculoskeletal: no tendereness Neuro/EMBOSSING TOOLSETTER: alert, oriented X 3 Results Findings/Data: Laboratory Tests 05/02 05/02 05/02 05/01 05/01 0858 0530 0530 2030 1559 Chemistry Sodium (136 - 145 mmol/L) 134 L Potassium (3.4 - 5.0 mmol/L) 4.5 Chloride (98 - 107 mmol/L) 99 Carbon Dioxide (21 - 32 mmol/L) 27 Anion Gap (4 - 15 GAP calc) 8 BUN (7 - 18 MG/DL) 15 Creatinine (0.6 - 1.0 MG/DL) 2.9 H Glomerular Filtr Rate (>60 estGFR) 18 L Glucose (70 - 110 MG/DL) 180 H POC Glucose (70 - 110 mg/dL) 307 H 219 H 208 H Calcium (8.5 - 10.1 MG/DL) 9.3 Magnesium (1.8 - 2.4 MG/DL) 1.9 05/01 1123 Chemistry POC Glucose (70 - 110 mg/dL) 193 H Laboratory Tests 05/02 0530 Hematology WBC (3.5 - 11.0 K/mm3) 11.2 H RBC (4.70 - 6.10 M/mm3) 3.13 L Hgb (10.4 - 14.9 G/DL) 7.5 L Hct (31.5 - 44.1 %) 26.4 L MCV (84.5 - 98.6 Fl) 84.3 L MCH (27.0 - 34.2 pg) 24.0 L MCHC (31.5 - 34.0 G/DL) 28.4 L RDW (11.5 - 14.5 SD) 16.7 H Plt Count (150 - 450 K/mm3) 546 H MPV (7.0 - 10.5 fL) 11.10 H Add Manual Diff (CRITERIA DIFF/SCN) YES Seg Neutrophils % (40 - 75 %) 74 Lymphocytes % (Manual) (18.7 - 40.6 %) 13 L Atypical Lymphs % (0 - 0 %) 3 H Monocytes % (Manual) (3.8 - 11.4 %) 8 Platelet Estimate (ADEQUATE THOUSAND) ADEQUATE Plt Morphology Comment NORMAL Hypochromasia (NONE ON SCAN) 2+ H Anisocytosis (NONE) 1+ Microcytosis (NONE ON SCAN) 1+ Macrocytosis (NONE ON SCAN) 1+ Tear Drop Cells (NONE ON SCAN) 1+ Diagnosis, Assessment Plan Free Text A P: 1. ESRD on hemodialysis Hemodialysis on Tuesday and Tuesday. 2. Fluid overload. 3. Chronic anemia renal disease 4. Secondary hyperparathyroidism. 5. Acute on chronic CHF. 6. Diabetes mellitus. 7. Hypertension. 8. Hyponatremia. Recommendation. 05/02: HD today, target 3L . Still fluid overload. 05/01: Fluid overload. HD today, target 3L. 04/30: Additional dialysis today. Target fluid removal 3 L. Clinically hypervolemic. 04/29: Limit fluid to 1 L a day. Drug dose adjustment to GFR. Urgent dialysis, target fluid removal 3 L. Adjust Epogen subcutaneous. Adjust phosphorus binders. Thank you for consultation, any question please call [phone]. at [phone] RPT #: [id number] END OF REPORT [facility] 2024-05-01 18:34:00 [facility] ([facility]) Int. Cardiology Progress Note REPORT#:[id number] REPORT STATUS: Signed REPORT INITIALIZATION DATE:05/01/24 TIME:1834 PATIENT: ELVIS FREEMAN UNIT #: [id number] ROOM/BED: [place] [id number] : 61 AGE: 64 SEX: F ATTEND: Winifred Marion MD ADM AUTHOR: Celestino Vanessa MD REPT SERVICE DT/TIME: 05/01/24 0415 * ALL edits or amendments must be made on the electronic/computer document * Subjective Subjective Chief complaint: Shortness of breath HPI: Ms. Freeman is a 64-year-old female with history of hypertension, diabetes, heart failure with preservation fraction, ESRD who is admitted with worsening shortness of breath. Patient denies any chest pain but mentions that she has had a PCI in the past at [facility]. She Becoming more short of breath despite taking 2.5 L out despite yesterday during dialysis and hence came to the ER. She does endorse pedal edema, orthopnea and PND. 05/01/24 -patient is doing better. Shortness of breath is better. Patient with multiple admissions with heart failure. Review of Systems Free Text ROS Notes Free Text ROS Notes: A 12 point review of system was conducted and is negative unless mentioned in the HPI Objective General VS/I O: Vital Signs: Date Time Temp Pulse Resp B/P B/P Pulse O2 O2 Flow FiO2 Mean Ox Delivery Rate 05/01 1800 84 18 101/49 71 100 05/01 1750 86 14 112/55 79 100 05/01 1616 36.4 12 1600 80 16 117/60 83 99 12/ 1500 79 13 112/62 82 98 05/01 1303 36.7 80 20 118/52 100 Room air 05/01 1301 83 27 118/57 78 100 05/01 1230 80 21 133/63 90 100 / 1130 80 21 124/57 82 99 / 1124 36.7 12/ 1030 79 20 146/66 95 100 / 1001 79 6 118/61 84 100 / 0946 82 25 138/56 73 99 / 0930 79 23 139/67 97 100 / 0922 80 21 136/65 93 100 / 0915 36.7 80 23 127/60 100 Room air / 0900 83 20 127/60 87 100 12/ 0800 81 20 127/64 91 100 05/01 0747 36.9 12 0701 78 16 125/67 90 100 05/01 0700 78 17 100 12/ 0600 79 17 123/61 85 100 12/ 0500 76 27 104/51 73 95 12/ 0413 37.1 12 0400 82 6 112/56 75 99 12/ 0300 76 17 113/56 76 96 / 0200 75 19 125/68 92 99 / 0101 76 26 116/53 76 97 / 0001 75 17 94/55 73 97 04/30 2323 36.9 04/30 2320 78 25 137/61 88 100 04/30 2301 75 24 123/79 97 100 04/30 2200 75 12 104/58 76 96 04/30 2100 75 18 124/73 92 100 04/30 2000 36.8 121999 78 17 142/72 100 97 04/30 1912 76 35 155/73 105 98 / 1900 75 17 119/56 80 95 24 hour I O ending at 0700: 05/01 0700 04/30 1900 Intake Total 200 860 Output Total 3200 Balance 200 -2340 Intake, Oral 200 860 Number 1 Bowel Movements Number Voids 3 1 Output, 3200 Hemodialysis PATIENT WEIGHT: Weight (lb): Weight (oz): Weight (kg): 81.818 Physical Exam General appearance: alert, awake, oriented HEENT: PERRL Cardiovascular: CV assessment: S3 present Respiratory: aerating well, clear to auscultation Abdomen: soft Lower extremity: LE assessment: normal capillary refill, 2+ pedal pulse Neuro/EMBOSSING TOOLSETTER: alert, oriented X 3 Diagnosis, Assessment Plan Problem List/A P: 1. Atrial fibrillation with rapid ventricular response 2. Hypotension 3. Shortness of breath 4. Abdominal distention 5. Volume overload 6. Pulmonary edema 7. Pericardial effusion 8. NSTEMI (non-ST elevated myocardial infarction) 9. Community acquired pneumonia 10. CHF exacerbation 11. Orthopnea 12. Dyspnea on exertion 13. History of end stage renal disease 14. 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 There is a moderate circumferential pericardial effusion that hopefully will become less with effusion. There is also considerable septal shift with respiration, and I am worried that she also has calcific constriction pericarditis on top. Her past history of anasarca will be explained because of this. -Please send ESR and CRP. -Continue with taking of fluids via dialysis. -Continue with apixaban -Continue with amiodarone 200 mg daily 05/01 -we will repeat echocardiogram to reevaluate effusion. Will also do a full constriction study. If there is still signs of constriction, she might require coronary angiogram and invasive hemodynamics. I have discussed the finding with our surgical colleague Dr. Bertram Brown as well Thank you for the consult. Please call us if you have any questions or concerns , at 1858 RPT #: [id number] END OF REPORT [facility] 2024-05-01 15:29:00 [facility] Hospitalist Progress Note REPORT#:[id number] REPORT STATUS: Signed REPORT INITIALIZATION DATE:05/01/24 TIME:1528 PATIENT: ELVIS FREEMAN UNIT #: [id number] ROOM/BED: [place] [address] : 61 AGE: 64 SEX: F ATTEND: Winifred Marion MD ADM AUTHOR: Mushtaq Mayorga MD REPT SERVICE DT/TIME: 05/01/24 152 * ALL edits or amendments must be made on the electronic/computer document * Subjective Chief complaint: Shortness of breath of 4 days duration HPI: 54-year-old woman with history of hypertension, diabetes, CHF and ESRD on hemodialysis who presented to the ED complaining of shortness of breath of 4 days duration. The patient endorsed having increased work of breathing with cough when she lays on her back. She mentioned that she was admitted recently to our hospital and discharged few days ago. She said that she was having shortness of breath on discharge and actually did not get better. The patient mentioned that she goes to dialysis every 3 days and she had her session yesterday. She said that she felt better after they took about 2 L and a half after the dialysis session but she felt worse for today. She mentioned that she was on antibiotics in the prior admission. She denied having any sick contacts at home. Chest x-ray done on admission showed pleural effusion with possible pneumonia versus atelectasis. Review of Systems Free Text ROS Notes Free Text ROS Notes: She endorsed having shortness but improved. She denied having fever, chills or sweating. She denied having chest pain, headache or blurry vision. She denied having diarrhea or urination issues as she is still making urine. Objective General VS/I O: Vital Signs: Date Time Temp Pulse Resp B/P B/P Pulse O2 O2 Flow FiO2 Mean Ox Delivery Rate 05/02 1924 37.3 05/02 1900 85 15 104/57 76 94 05/02 1830 87 30 119/65 84 100 / 1800 82 17 122/58 83 95 05/02 1730 82 17 107/64 81 100 05/02 1701 82 22 107/59 78 99 05/02 1646 37.1 05/02 1645 82 05/02 1631 79 15 112/55 77 99 05/02 1600 80 18 113/50 72 100 05/02 1530 81 19 111/60 79 97 / 1500 81 20 123/58 83 100 05/02 1430 81 18 104/56 75 100 / 1400 83 43 100 05/02 1330 83 22 120/85 98 100 05/02 1255 85 15 149/67 96 100 05/02 1245 78 21 131/75 97 100 / 1243 75 / 1233 77 / 1230 36.6 79 20 131/75 100 Room air 05/02 1230 76 29 131/72 96 100 / 1215 77 22 133/73 98 100 /04 1200 79 27 129/68 93 100 /04 1145 80 23 131/66 94 100 / 1142 36.4 12/04 1130 81 30 134/63 88 100 / 1115 79 23 127/65 89 100 /04 1100 80 21 122/63 87 100 /04 1045 80 27 123/65 88 100 /04 1030 80 24 119/64 85 100 /04 1015 81 24 120/63 86 100 12/04 1000 80 16 114/59 80 99 /04 0945 80 22 140/71 99 100 / 0930 83 19 118/63 85 100 05/02 0928 83 18 122/61 85 05/02 0925 37.0 82 20 101/58 100 Room air 05/02 09 84 20 101/58 75 05/02 0859 36.8 05/02 08 86 33 100 05/02 07 83 18 104/56 75 97 05/02 0500 83 14 105/57 76 100 05/02 0416 85 24 127/58 83 100 05/02 0324 37.0 05/02 0300 78 0 113/53 75 97 05/02 0200 78 16 116/57 80 97 05/02 0100 81 13 131/64 90 96 05/02 0000 79 11 123/59 82 97 05/01 2331 37.3 05/01 2301 79 20 137/63 90 98 05/01 2200 76 17 110/54 75 98 05/01 2100 80 23 127/59 85 97 05/01 2000 79 20 117/55 76 96 24 hour I O ending at 0700: 05/02 0700 05/01 1900 Intake Total 200 660 Output Total 4000 Balance 200 -3340 Intake, Oral 200 660 Number Voids 2 Output, 4000 Hemodialysis PATIENT WEIGHT: Weight (lb): Weight (oz): Weight (kg): 81.818 Medications: Active Meds + DC'd Last 24 Hrs Insulin Glargine (Lantus/Semglee) 14 UNIT BEDTIME SUBQ Insulin Human Lispro (Admelog) 3 UNIT AC SUBQ Clopidogrel Bisulfate (Plavix) 75 MG DAILY PO Sodium Chloride (0.9% Sodium Chloride) 2,000 ML .Q24H PRN IV Sodium Chloride (0.9% Sodium Chloride) 2,000 ML .Q24H PRN IV (DC) Doxycycline Hyclate (VIBRAMYCIN) 100 MG BID PO Amiodarone HCl (CORDARONE) 200 MG DAILY PO Atorvastatin Calcium (LIPITOR) 40 MG DAILY PO Bumetanide (BUMEX) 2 MG DAILY PO Ezetimibe (ZETIA) 10 MG DAILY PO Gabapentin (NEURONTIN) 200 MG BID PO Polyethylene Glycol (MIRALAX) 17 GM DAILY PO Dextrose (GLUCOSE) 4 GM ASDIR PRN PO Dextrose/Water (DEXTROSE 10% IN WATER 250 ML) 250 ML ASDIR IV Glucagon (GLUCAGON) 1 MG ASDIR PRN IM Sevelamer Carbonate (RENVELA) 800 MG TID MEALS PO Apixaban (ELIQUIS) 5 MG Q12HR PO Insulin Glargine (Lantus/Semglee) 10 UNIT BEDTIME SUBQ (DC) Melatonin (Melatonin) 5 MG BEDTIME PO Acetaminophen (TYLENOL) 650 MG Q4H PRN PRN PO Hydralazine HCl (APRESOLINE) 10 MG Q6H PRN PRN IV Hydrocodone Bitart/Acetaminophen (NORCO 5/325) 1 TAB Q4H PRN PRN PO Ondansetron HCl (ZOFRAN) 4 MG Q4H PRN PRN IV Tramadol HCl (ULTRAM) 50 MG Q4H PRN PRN PO Insulin Human Lispro (Admelog) 0 AC HS SUBQ Heparin Sodium (HEPARIN SODIUM) 3,600 UNITS ASDIR PRN IV Ceftriaxone Sodium (ROCEPHIN) 2,000 MG Q24H IV Sterile Water (WATER FOR INJECTION) 20 ML Albumin Human (ALBUMINAR-25% 12.5 GM/50 ML) 25 GM BOLUS PRN IV Mannitol (MANNITOL 25%) 12.5 GM BOLUS PRN IV Dietitian nutrition assessment The data set between the solid lines has been imported from the dietitian's assessment. BMI Calculated: 32.0 Nutrition related diagnosis: Nutrition diagnosis details: Nutrition problem: Nutrition etiology: Nutrition signs and symptoms: Nutrition prescription: Dietitian name: Assessment completed: Free Text Obj Notes Free Text Obj Notes: General: Alert and oriented, did not look to be in distress Respiratory: No respiratory distress while being on nasal cannula for oxygen supply Cardiovascular: Regular rate, right chest permanent catheter for dialysis with no surrounding erythema or drainage Abdomen: Soft Musculoskeletal: No edema Neurology: No focal deficits Psychiatry: Calm Diagnosis, Assessment Plan Free Text DxA P Notes Free text DxA P notes: #Acute hypoxemic respiratory failure requiring O2 supply by nasal cannula. stable on room air #Suspected underlying pneumonia (could be viral, not necessarily bacterial) versus pulmonary edema #Hypertension #End-stage renal disease on dialysis #Right chest permanent catheter with no signs of infection #Hyperlipidemia #Diabetes mellitus #Obesity Plans: -Continue on ceftriaxone and doxycycline for total of 5 days, stop date on 05/03 -Resumed her home meds as tolerated mainly the antihypertensives and antidiabetes,continue on lantus for baseline glucose control in addition to low sliding scale -Eliquis is documented as part of her medication so resumed -Follow up with cardiology and nephrology recommendations Disposition pending clinical improvement and clearance from nephrology as more dialysis is required in the inpatient settings before discharge at [facility] #: [phone] END OF REPORT [facility] 2024-05-01 09:55:00 [facility] ([facility]) Nephrology Progress Note REPORT#:[id number] REPORT STATUS: Signed REPORT INITIALIZATION DATE:05/01/24 TIME:954 PATIENT: ELVIS FREEMAN UNIT #: [id number] ROOM/BED: [place] [id number] : 61 AGE: 64 SEX: F ATTEND: Winifred Marion MD ADM AUTHOR: Anson Duncan MD REPT SERVICE DT/TIME: 05/01/24 09 * ALL edits or amendments must be made on the electronic/computer document * Subjective HPI: 54-year-old female with history of hypertension, diabetes, CHF, ESRD on hemodialysis,, presented to emergency room complaining of shortness of breath. Patient is ESRD on hemodialysis, hemodialysis on Tuesday and Tuesday. Last dialysis yesterday. Labs reviewed. Chest x-ray reviewed. Renal consulted for inpatient dialysis. Comments: Denies sob. Review of Systems Free Text ROS Notes Free Text ROS Notes: 10 points ROS performed and documented in subjective, otherwise negative. Objective General VS/I O: Vital Signs: Date Time Temp Pulse Resp B/P B/P Pulse O2 O2 Flow FiO2 Mean Ox Delivery Rate 12/03 0930 79 23 139/67 97 100 12/03 0922 80 21 136/65 93 100 12/03 0915 36.7 80 23 127/60 100 Room air 12/03 0900 83 20 127/60 87 100 12/03 0800 81 20 127/64 91 100 12/03 0747 36.9 12/03 0701 78 16 125/67 90 100 12/03 0700 78 17 100 12/03 0600 79 17 123/61 85 100 12/03 0500 76 27 104/51 73 95 12/03 0413 37.1 12/03 0400 82 6 112/56 75 99 12/03 0300 76 17 113/56 76 96 12/03 0200 75 19 125/68 92 99 12/03 0101 76 26 116/53 76 97 12/03 0001 75 17 94/55 73 97 12/02 2323 36.9 12/02 2320 78 25 137/61 88 100 12/02 2301 75 24 123/79 97 100 12/02 2200 75 12 104/58 76 96 12/02 2100 75 18 124/73 92 100 12/02 1999 36.8 12/1999 78 17 142/72 100 97 12/02 1912 76 35 155/73 105 98 12/02 1900 75 17 119/56 80 95 12/02 1845 77 20 126/59 81 96 12/02 1830 78 19 133/60 89 95 12/02 1815 79 32 127/62 89 96 12/02 1800 78 33 141/70 99 98 12/02 1701 76 29 131/68 92 100 12/02 1645 37.5 12/02 1617 36.7 71 22 120/57 100 Room air 12/02 1611 71 21 120/57 85 100 12/02 1600 69 18 120/69 89 100 12/02 1545 69 18 113/57 79 100 12/02 1515 72 22 125/65 88 100 12/02 1501 74 24 132/63 89 100 12/02 1446 76 24 146/67 94 100 12/02 1415 77 23 137/63 90 100 12/02 1400 78 29 141/65 93 100 12/02 1345 77 23 152/69 99 100 12/02 1331 79 22 160/78 111 100 12/02 1310 36.6 72 18 134/59 100 Room air 12/02 1302 70 19 134/59 85 100 12/02 1229 78 20 130/63 90 100 24 hour I O ending at 0700: 12/03 0700 12/ 1900 Intake Total 200 860 Output Total 3200 Balance 200 -2340 Intake, Oral 200 860 Number 1 Bowel Movements Number Voids 3 1 Output, 3200 Hemodialysis Medications Active Meds + DC'd Last 24 Hrs Sodium Chloride (0.9% Sodium Chloride) 2,000 ML .Q24H PRN IV (PEND) Doxycycline Hyclate (VIBRAMYCIN) 100 MG BID PO Amiodarone HCl (CORDARONE) 200 MG DAILY PO Atorvastatin Calcium (LIPITOR) 40 MG DAILY PO Bumetanide (BUMEX) 2 MG DAILY PO Ezetimibe (ZETIA) 10 MG DAILY PO Gabapentin (NEURONTIN) 200 MG BID PO Polyethylene Glycol (MIRALAX) 17 GM DAILY PO Dextrose (GLUCOSE) 4 GM ASDIR PRN PO Dextrose/Water (DEXTROSE 10% IN WATER 250 ML) 250 ML ASDIR IV Glucagon (GLUCAGON) 1 MG ASDIR PRN IM Sevelamer Carbonate (RENVELA) 800 MG TID MEALS PO Apixaban (ELIQUIS) 5 MG Q12HR PO Insulin Glargine (Lantus/Semglee) 10 UNIT BEDTIME SUBQ Melatonin (Melatonin) 5 MG BEDTIME PO Acetaminophen (TYLENOL) 650 MG Q4H PRN PRN PO Hydralazine HCl (APRESOLINE) 10 MG Q6H PRN PRN IV Hydrocodone Bitart/Acetaminophen (NORCO 5/325) 1 TAB Q4H PRN PRN PO Ondansetron HCl (ZOFRAN) 4 MG Q4H PRN PRN IV Tramadol HCl (ULTRAM) 50 MG Q4H PRN PRN PO Insulin Human Lispro (Admelog) 0 AC HS SUBQ Heparin Sodium (HEPARIN SODIUM) 3,600 UNITS ASDIR PRN IV Ceftriaxone Sodium (ROCEPHIN) 2,000 MG Q24H IV Sterile Water (WATER FOR INJECTION) 20 ML Albumin Human (ALBUMINAR-25% 12.5 GM/50 ML) 25 GM BOLUS PRN IV Mannitol (MANNITOL 25%) 12.5 GM BOLUS PRN IV Sodium Chloride (0.9% Sodium Chloride) 2,000 ML .Q24H PRN IV (DC) Physical Exam General appearance: awake Head/eyes: normocephalic ENT: normal nose Neck: no JVD C-Spine clearance: no midline tenderness Cardiovascular: no murmur, no rub Respiratory: clear to auscultation Abdomen: non-tender, soft Genitourinary: no bladder distention Extremities: pitting edema Musculoskeletal: no tendereness Neuro/EMBOSSING TOOLSETTER: alert, oriented X 3 Results Findings/Data: Laboratory Tests 05/01 05/01 04/30 04/30 04/30 0817 0723 2016 1648 1648 Chemistry Sodium (136 - 145 mmol/L) 134 L Potassium (3.4 - 5.0 mmol/L) 3.8 Chloride (98 - 107 mmol/L) 100 Carbon Dioxide (21 - 32 mmol/L) 31 Anion Gap (4 - 15 GAP calc) 3 L BUN (7 - 18 MG/DL) 15 Creatinine (0.6 - 1.0 MG/DL) 2.6 H Glomerular Filtr Rate (>60 estGFR) 20 L Glucose (70 - 110 MG/DL) 219 H POC Glucose (70 - 110 mg/dL) 123 H 193 H Calcium (8.5 - 10.1 MG/DL) 8.5 Phosphorus (2.5 - 4.9 MG/DL) 3.3 Magnesium (1.8 - 2.4 MG/DL) 1.6 L 1.8 C-Reactive Protein (0 - 0.9 MG/DL) 3.8 H 04/30 04/30 1644 1155 Chemistry POC Glucose (70 - 110 mg/dL) 111 H 237 H Laboratory Tests 04/30 1648 Hematology ESR (0 - 20 mm/hr) 62 H Radiology data: Recent Impressions: CAT SCAN - CTA CHEST FOR PE 04/30 1232 Report Impression - Status: SIGNED Entered: 04/30/2024 1327 IMPRESSION: 1. No pulmonary emboli. 2. Moderate-sized right and small left pleural effusion. 3. Stable indeterminate 3.3 cm left adrenal lesion and a 1.4 cm right adrenal lesion. Non-emergent adrenal CT is recommended. (Reference: Joel) 4. Small volume of perihepatic ascites. 5. Small stable pericardial effusion. REFERENCES: Joel DIXON, et al. Management of Incidental Adrenal Masses: A White Paper of the ACR Incidental Findings Committee. J Am Jolanta Radiol. 2017;14(8):1284-8195. Impression By: [email or web address] - Bhupendra Ma MD Diagnosis, Assessment Plan Free Text A P: 1. ESRD on hemodialysis Hemodialysis on Tuesday and Tuesday. 2. Fluid overload. 3. Chronic anemia renal disease 4. Secondary hyperparathyroidism. 5. Acute on chronic CHF. 6. Diabetes mellitus. 7. Hypertension. 8. Hyponatremia. Recommendation. 05/01: Fluid overload. HD today, target 3L. 04/30: Additional dialysis today. Target fluid removal 3 L. Clinically hypervolemic. 04/29: Limit fluid to 1 L a day. Drug dose adjustment to GFR. Urgent dialysis, target fluid removal 3 L. Adjust Epogen subcutaneous. Adjust phosphorus binders. Thank you for consultation, any question please call [phone]. at [phone] RPT #: [id number] END OF REPORT [facility] 2024-04-30 22:53:00 [id number] [facility] [id number] [place] [id number] PATIENT NAME: ELVIS FREEMAN ADMIT DATE: 04/19/24 ACCOUNT NO: [id number] ROOM NO: [facility] AGE: 64 REPORT TYPE: 360 - QUERY RESPONSE DOCUMENT SEX: F ADMITTING PHYSICIAN: Mushtaq Mayorga MD ATTENDING PHYSICIAN: Mushtaq Mayorga MD Provider Query QUERY TEXT: Clarification Conflicting Diagnosis Procedure 360MD Query related questions should be directed to: [facility] Coding Query Helpline Based on your clinical judgement, please clarify the following conflicting documentation: The hospitalist Cardiology Consultation 04/20/2024 (1) indicates NSTEMI type II., the PN indicates Problem List/A P: NSTEMI (non-ST elevated myocardial infarction) , can you please clarify the patient actually has (NSTEMI (non-ST elevated myocardial infarction), NSTEMI type II or Other more appropriate diagnosis)? The patient's Clinical Indicators include: Troponin I High Sens (0 - 54 ng/L) 691.5 *H -ED PHYSICIAN RECORD 04/19/2024 (4) NSTEMI (non-ST elevated myocardial infarction), -D PHYSICIAN RECORD 04/19/2024 (1) NSTEMI type II. -Cardiology Consultation 04/20/2024 (1) Problem List/A P: NSTEMI (non-ST elevated myocardial infarction) -Hospitalist Progress Note 04/23/2024 (1) HEPARIN SODIUM 1000 UNITS/ML 1 ML-mar 04/19/2024 Options provided: -- Respond - Create new note now -- Disagree - Not applicable / Not valid -- Disagree - Clinically unable to determine / Unknown -- Assign to another provider QUERY RESPONSE: NSTEMI type II CONFIRMED Query created by: Devon Amaya on 04/30/2024 10:45 PM at 2253 PATIENT NAME: ELVIS FREEMAN [facility] 2024-04-30 15:33:00 [facility] Hospitalist Progress Note REPORT#:[id number] REPORT STATUS: Signed REPORT INITIALIZATION DATE:04/30/24 TIME:1532 PATIENT: ELVIS FREEMAN UNIT #: [id number] ROOM/BED: [place] [address] : 61 AGE: 64 SEX: F ATTEND: Winifred Marion MD ADM AUTHOR: Winifred Marion MD REPT SERVICE DT/TIME: 04/30/24 1533 * ALL edits or amendments must be made on the electronic/computer document * Subjective Chief complaint: Shortness of breath of 4 days duration HPI: 54-year-old woman with history of hypertension, diabetes, CHF and ESRD on hemodialysis who presented to the ED complaining of shortness of breath of 4 days duration. The patient endorsed having increased work of breathing with cough when she lays on her back. She mentioned that she was admitted recently to our hospital and discharged few days ago. She said that she was having shortness of breath on discharge and actually did not get better. The patient mentioned that she goes to dialysis every 3 days and she had her session yesterday. She said that she felt better after they took about 2 L and a half after the dialysis session but she felt worse for today. She mentioned that she was on antibiotics in the prior admission. She denied having any sick contacts at home. Chest x-ray done on admission showed pleural effusion with possible pneumonia versus atelectasis. Comments: The patient was seen and examined at bedside today. No acute distress with no new events Review of Systems Free Text ROS Notes Free Text ROS Notes: She endorsed having shortness but improved. She denied having fever, chills or sweating. She denied having chest pain, headache or blurry vision. She denied having diarrhea or urination issues as she is still making urine. Objective General VS/I O: Vital Signs: Date Time Temp Pulse Resp B/P B/P Pulse O2 O2 Flow FiO2 Mean Ox Delivery Rate 04/30 1345 77 23 152/69 99 100 04/30 1331 79 22 160/78 111 100 04/30 1310 36.6 72 18 134/59 100 Room air 04/30 1302 70 19 134/59 85 100 04/30 1229 78 20 130/63 90 100 04/30 1044 76 23 100 04/30 1000 77 19 142/61 88 96 04/30 0900 77 19 132/73 97 98 04/30 0821 36.3 04/30 0800 79 19 140/70 99 100 04/30 0737 79 26 139/67 93 100 04/30 0730 37.0 / 0700 79 20 129/60 87 98 12/ 0600 80 18 126/60 87 94 / 0501 80 22 134/61 88 98 / 0400 36.7 / 0400 77 24 110/55 72 99 04/30 0300 74 17 104/57 71 100 / 0201 77 25 124/51 73 95 / 0010 37.0 04/30 0000 79 20 115/59 80 100 04/29 2300 80 21 118/58 83 99 04/29 2200 81 23 111/58 79 100 04/29 2100 84 28 113/66 81 100 04/29 2000 81 19 112/53 77 99 04/29 1926 36.7 04/29 1659 83 22 100 04/29 1655 82 33 116/67 84 99 04/29 1650 83 18 112/61 81 99 04/29 1648 84 21 100 04/29 1645 84 22 114/64 85 100 04/29 1632 83 26 04/29 1630 84 24 107/59 77 100 04/29 1625 83 27 113/61 80 100 04/29 1620 84 34 116/62 82 100 04/29 1615 84 28 117/59 83 87 04/29 1611 84 23 115/59 82 98 04/29 1606 83 40 92/41 59 99 04/29 1603 83 31 88/50 64 98 04/29 1601 83 28 74/52 58 96 04/29 1552 82 25 97 04/29 1550 82 23 106/70 82 88 04/29 1544 36.6 04/29 1540 80 10 107/60 77 96 24 hour I O ending at 0700: 04/30 0700 04/29 1900 Intake Total 700.00 250.00 Output Total 3000 Balance 700.00 -2750.00 Intake, IV 500.00 250.00 Intake, Oral 200 Number 1 1 Bowel Movements Number 0 Incontinent Voids Number Voids 2 1 Output, 3000 Hemodialysis PATIENT WEIGHT: Weight (lb): Weight (oz): Weight (kg): 81.818 Free Text Obj Notes Free Text Obj Notes: General: Alert and oriented, did not look to be in distress Respiratory: No respiratory distress while being on nasal cannula for oxygen supply Cardiovascular: Regular rate, right chest permanent catheter for dialysis with no surrounding erythema or drainage Abdomen: Soft Musculoskeletal: No edema Neurology: No focal deficits Psychiatry: Calm Diagnosis, Assessment Plan Free Text DxA P Notes Free text DxA P notes: #Acute hypoxemic respiratory failure requiring O2 supply by nasal cannula. stable on room air #Suspected underlying pneumonia (could be viral, not necessarily bacterial) versus pulmonary edema #Hypertension #End-stage renal disease on dialysis #Right chest permanent catheter with no signs of infection #Hyperlipidemia #Diabetes mellitus #Obesity Plans: -Continue on ceftriaxone and doxycycline for total of 5 days, stop date on 05/03 -Resumed her home meds as tolerated mainly the antihypertensives and antidiabetes,continue on lantus for baseline glucose control in addition to low sliding scale -Eliquis is documented as part of her medication so resumed -Follow up with cardiology and nephrology recommendations Disposition pending clinical improvement and clearance from nephrology as more dialysis is required in the inpatient settings before discharge at 1536 RPT #: [id number] END OF REPORT [facility] 2024-04-30 09:52:00 [facility] Nephrology Progress Note REPORT#:[id number] REPORT STATUS: Signed REPORT INITIALIZATION DATE:04/30/24 TIME:951 PATIENT: ELVIS FREEMAN UNIT #: [id number] ROOM/BED: L309-1 : 61 AGE: 64 SEX: F ATTEND: Winifred Marion MD ADM AUTHOR: Anson Duncan MD REPT SERVICE DT/TIME: 04/30/24951 * ALL edits or amendments must be made on the electronic/computer document * Subjective HPI: 54-year-old female with history of hypertension, diabetes, CHF, ESRD on hemodialysis,, presented to emergency room complaining of shortness of breath. Patient is ESRD on hemodialysis, hemodialysis on Tuesday and Tuesday. Last dialysis yesterday. Labs reviewed. Chest x-ray reviewed. Renal consulted for inpatient dialysis. Comments: Shortness of breath improved. Review of Systems Free Text ROS Notes Free Text ROS Notes: 10 point review of system performed documented subjective, otherwise negative. Objective General VS/I O: Vital Signs: Date Time Temp Pulse Resp B/P B/P Pulse O2 O2 Flow FiO2 Mean Ox Delivery Rate 04/30 1345 77 23 152/69 99 100 04/30 1331 79 22 160/78 111 100 04/30 1310 36.6 72 18 134/59 100 Room air / 1302 70 19 134/59 85 100 / 1229 78 20 130/63 90 100 04/30 1044 76 23 100 / 1000 77 19 142/61 88 96 / 0900 77 19 132/73 97 98 / 0821 36.3 12/ 0800 79 19 140/70 99 100 / 0737 79 26 139/67 93 100 / 0730 37.0 / 0700 79 20 129/60 87 98 12/ 0600 80 18 126/60 87 94 / 0501 80 22 134/61 88 98 / 0400 36.7 / 0400 77 24 110/55 72 99 04/30 0300 74 17 104/57 71 100 04/30 0201 77 25 124/51 73 95 04/30 0010 37.0 04/30 0000 79 20 115/59 80 100 04/29 2300 80 21 118/58 83 99 04/29 2200 81 23 111/58 79 100 04/29 2100 84 28 113/66 81 100 04/29 2000 81 19 112/53 77 99 04/29 1926 36.7 04/29 1659 83 22 100 04/29 1655 82 33 116/67 84 99 04/29 1650 83 18 112/61 81 99 04/29 1648 84 21 100 04/29 1645 84 22 114/64 85 100 04/29 1632 83 26 04/29 1630 84 24 107/59 77 100 04/29 1625 83 27 113/61 80 100 04/29 1620 84 34 116/62 82 100 04/29 1615 84 28 117/59 83 87 04/29 1611 84 23 115/59 82 98 24 hour I O ending at 0700: 04/30 0700 04/29 1900 Intake Total 700.00 250.00 Output Total 3000 Balance 700.00 -2750.00 Intake, IV 500.00 250.00 Intake, Oral 200 Number 1 1 Bowel Movements Number 0 Incontinent Voids Number Voids 2 1 Output, 3000 Hemodialysis Medications Active Meds + DC'd Last 24 Hrs Doxycycline Hyclate (VIBRAMYCIN) 100 MG BID PO Amiodarone HCl (CORDARONE) 200 MG DAILY PO Atorvastatin Calcium (LIPITOR) 40 MG DAILY PO Bumetanide (BUMEX) 2 MG DAILY PO Ezetimibe (ZETIA) 10 MG DAILY PO Gabapentin (NEURONTIN) 200 MG BID PO Polyethylene Glycol (MIRALAX) 17 GM DAILY PO Dextrose (GLUCOSE) 4 GM ASDIR PRN PO Dextrose/Water (DEXTROSE 10% IN WATER 250 ML) 250 ML ASDIR IV Glucagon (GLUCAGON) 1 MG ASDIR PRN IM Sevelamer Carbonate (RENVELA) 800 MG TID MEALS PO Apixaban (ELIQUIS) 5 MG Q12HR PO Gabapentin (NEURONTIN) 200 MG ONCE ONE PO (DC) Insulin Glargine (Lantus/Semglee) 10 UNIT BEDTIME SUBQ Melatonin (Melatonin) 5 MG BEDTIME PO Acetaminophen (TYLENOL) 650 MG Q4H PRN PRN PO Hydralazine HCl (APRESOLINE) 10 MG Q6H PRN PRN IV Hydrocodone Bitart/Acetaminophen (NORCO 5/325) 1 TAB Q4H PRN PRN PO Ondansetron HCl (ZOFRAN) 4 MG Q4H PRN PRN IV Tramadol HCl (ULTRAM) 50 MG Q4H PRN PRN PO Insulin Human Lispro (Admelog) 0 AC HS SUBQ Doxycycline Hyclate (VIBRAMYCIN) 100 MG Q12H IV (DC) Sodium Chloride (0.9% Sodium Chloride) 250 ML Heparin Sodium (HEPARIN SODIUM) 3,600 UNITS ASDIR PRN IV Ceftriaxone Sodium (ROCEPHIN) 2,000 MG Q24H IV Sterile Water (WATER FOR INJECTION) 20 ML Albumin Human (ALBUMINAR-25% 12.5 GM/50 ML) 25 GM BOLUS PRN IV Mannitol (MANNITOL 25%) 12.5 GM BOLUS PRN IV Sodium Chloride (0.9% Sodium Chloride) 2,000 ML .Q24H PRN IV (DC) Perflutren Lipid Microsphere (DEFINITY) 2 ML ONCE PRN IV (DC) Physical Exam General appearance: awake Head/eyes: normocephalic ENT: normal nose Neck: no JVD C-Spine clearance: no midline tenderness Cardiovascular: no murmur, no rub Respiratory: clear to auscultation Abdomen: non-tender, soft Genitourinary: no bladder distention Extremities: pitting edema Musculoskeletal: no tendereness Neuro/EMBOSSING TOOLSETTER: alert, oriented X 3 Results Findings/Data: Laboratory Tests 04/30 04/30 04/29 1155 0819 2052 Chemistry POC Glucose (70 - 110 mg/dL) 237 H 262 H 325 H Diagnosis, Assessment Plan Free Text A P: 1. ESRD on hemodialysis Hemodialysis on Tuesday and Tuesday. 2. Fluid overload. 3. Chronic anemia renal disease 4. Secondary hyperparathyroidism. 5. Acute on chronic CHF. 6. Diabetes mellitus. 7. Hypertension. Recommendation. 04/30: Additional dialysis today. Target fluid removal 3 L. Clinically hypervolemic. 04/29: Limit fluid to 1 L a day. Drug dose adjustment to GFR. Urgent dialysis, target fluid removal 3 L. Adjust Epogen subcutaneous. Adjust phosphorus binders. Thank you for consultation, any question please call [phone]. at 1608 RPT #: [id number] END OF REPORT [facility] 2024-04-29 14:13:00 [id number] [facility] [address] [place] [address] PATIENT NAME: ELVIS FREEMAN ADMIT DATE: 04/29/24 ACCOUNT NO: [id number] ROOM NO: J[place] AGE: 64 REPORT TYPE: eECHOCARDIOGRAM REPORT SEX: F ADMITTING PHYSICIAN: Winifred Marion MD ATTENDING PHYSICIAN: Winifred Marion MD *[facility]* [address] [place], [place] [address] Transthoracic Echocardiogram Patient: Elvis Freeman Study Date: 04/29/2024 BP: 112 / 59 URN: [id number] Location: : 1960 Age: 64 Gender: F Height: 63 in / 160 cm Weight: 180 lb / 81.6 kg BMI/BSA: 31.9 kg/m 2 / 1.94 m 2 *Ordering Physician: * Iveth Fields *Interpreting Physician: * Celestion Vanessa MD *Environmental Sampling Technician: * Lakeisha Reyes Indications: ELEV TROP, FLUID OVERLOAD, HX OF PERICARDIAL EFFUSION, AND CHF. Study data: Transthoracic echocardiogram. Procedure: A transthoracic echocardiogram was performed. Image quality was good. Complete 2D, complete spectral Doppler, color Doppler, and tissue Doppler. Location: Emergency department. Patient status: Inpatient. Patient room number: ER-11. Study status: Routine. Heart rate: 77 bpm. Rhythm: Normal sinus rhythm. Findings Left ventricle: The cavity size is normal. Wall thickness is moderately increased. Systolic function is mildly reduced. The estimated ejection fraction is 50-54%. Regional wall motion abnormalities: Mild hypokinesis. Grade II diastolic dysfunction. PATIENT NAME: ELVIS FREEMAN Right ventricle: The cavity size is normal. Systolic function is normal. Left atrium: The atrium is normal in size. Right atrium: The atrium is normal in size. Aorta: Aortic root: The root is normal-sized. Aortic valve: The valve is trileaflet. The leaflets are mildly calcified. There is no evidence of stenosis. There is no regurgitation. Mitral valve: The leaflets are mildly calcified. There is no evidence of stenosis. There is mild regurgitation. Tricuspid valve: The valve is structurally normal. There is mild regurgitation. Pulmonic valve: The valve is structurally normal. There is no regurgitation. Pericardium: A moderate pericardial effusion is identified. There is a left pleural effusion. Systemic veins: Inferior vena cava: The IVC is normal-sized. Measurements Left ventricle Value Ref TISH, LAX 4.1 cm 3.8 - 5.2 ESD, LAX 3.0 cm 2.2 - 3.5 FS, LAX 27 % 27 - 45 IVS, ED 0.9 cm 0.6 - 0.9 PW, ED 0.9 cm 0.6 - 0.9 IVS/PW, ED 0.93 --------- EF 53 % 54 - 74 LVOT Value Ref Diam, S 2.00 cm --------- Area 3.1 cm 2 --------- Peak kayla, S 1.24 m/sec --------- Mean kayla, S 0.83 m/sec --------- VTI, S 25.6 cm --------- Peak grad, S 6 mm Hg --------- Mean grad, S 3 mm Hg --------- SV 81 ml --------- SV/bsa 42 ml/m 2 --------- Right ventricle Value Ref Pressure, S 41 mm Hg --------- Left atrium Value Ref Vol/bsa, ES, 1-p A4C 24 ml/m 2 11 - 40 Vol/bsa, ES, A/L 26 ml/m 2 16 - 34 AP dim, ES MM 4.0 cm 2.7 - 3.8 LA/Ao root ratio, MM 1.3 --------- Right atrium Value Ref Area, ES 11 cm 2 10 - 18 SI dim, ES, A4C 4.2 cm 3.4 - 5.3 Vol, ES, A/L 26 ml --------- Vol, ES, 1-p A4C 25 ml --------- PATIENT NAME: LEVIS FREEMAN Vol/bsa, ES, 1-p A4C 13 ml/m 2 9 - 33 Aortic valve Value Ref Leaflet sep, MM 1.82 cm --------- Peak v, S 1.2 m/sec --------- Mean v, S 0.79 m/sec --------- VTI, S 22.1 cm --------- Mean grad, S 3 mm Hg --------- Peak grad, S 5.3 mm Hg --------- LVOT/AV, VTI ratio 1.16 --------- KARLA, VTI 3.65 cm 2 --------- LVOT/AV, Vpeak ratio 1.07 --------- KARLA, Vmax 3.38 cm 2 --------- Mitral valve Value Ref Mean v, D 0.83 m/sec --------- Peak E 1.1 m/sec --------- Peak A 1.22 m/sec --------- VTI leaflet coapt 44.7 cm --------- MiV/LVOT VTI 1.7 --------- Decel time 211 ms --------- PHT 77 ms --------- Mean grad, D 3 mm Hg --------- Peak grad, D 7.8 mm Hg --------- Peak E/A ratio 0.91 --------- MVA, PHT 2.9 cm 2 --------- MR peak v 4.04 m/sec --------- Tricuspid valve Value Ref TR peak v 2.6 m/sec <=2.8 Peak RV-RA grad, S 26 mm Hg --------- Aortic root Value Ref Root diam, ED MM 3.1 cm --------- Pulmonary artery Value Ref Pressure, S 39.0 mm Hg --------- Systemic veins Value Ref Estimated CVP 15 mm Hg --------- Pulmonary veins Value Ref A rev duration 91 ms --------- Conclusions Summary: 1. Left ventricle: The cavity size is normal. Wall thickness is moderately increased. Systolic function is mildly reduced. The estimated ejection fraction is 50-54%. Mild hypokinesis. Grade II diastolic dysfunction. 2. Right ventricle: The RV pressure during systole is 41 mm Hg. 3. Pericardium, extracardiac: A moderate pericardial effusion is identified. PATIENT NAME: ELVIS FREEMAN There is a left pleural effusion. Electronically signed by Celestino Vanessa MD 04/29/2024 14:13 at 1413 PATIENT NAME: ELVIS FREEMAN [facility] 2024-04-29 13:53:00 [facility] ([facility]) Hospitalist History Physical REPORT#:[id number] REPORT STATUS: Signed REPORT INITIALIZATION DATE:04/29/24 TIME:1353 PATIENT: ELVIS FREEMAN UNIT #: [id number] ROOM/BED: [place] [address] : 61 AGE: 64 SEX: F ATTEND: Winifred Marion MD ADM AUTHOR: Winifred Marion MD REPT SERVICE DT/TIME: 04/29/24 1353 * ALL edits or amendments must be made on the electronic/computer document * History of Present Illness HPI Chief complaint: Shortness of breath of 4 days duration HPI: 54-year-old woman with history of hypertension, diabetes, CHF and ESRD on hemodialysis who presented to the ED complaining of shortness of breath of 4 days duration. The patient endorsed having increased work of breathing with cough when she lays on her back. She mentioned that she was admitted recently to our hospital and discharged few days ago. She said that she was having shortness of breath on discharge and actually did not get better. The patient mentioned that she goes to dialysis every 3 days and she had her session yesterday. She said that she felt better after they took about 2 L and a half after the dialysis session but she felt worse for today. She mentioned that she was on antibiotics in the prior admission. She denied having any sick contacts at home. Chest x-ray done on admission showed pleural effusion with possible pneumonia versus atelectasis. History Past medical history: Reports: Kidney disease/stones. Additional surgical history: Reviewed. Additional family history: Noncontributory. Smoking status for patients 13 years old or older: Unknown,if ever smoked Medication/Allergy-Vaccine Hx Allergies: Coded Allergies: No Known Allergies (04/19/24) Review of Systems Free Text ROS Notes Free Text ROS Notes: She denied having fever, chills or sweating. She denied having chest pain, headache or blurry vision. She denied having diarrhea or urination issues as she is still making urine. Objective General VS/I O: Vital Signs: Date Time Temp Pulse Resp B/P B/P Pulse O2 O2 Flow FiO2 Mean Ox Delivery Rate 04/29 1210 36.4 76 25 106/51 Nasal 2 cannula 04/29 1103 100 04/29 1101 74 117/75 90 04/29 1015 80 120/59 79 98 04/29 0924 82 27 112/59 81 99 04/29 0801 81 23 113/61 79 100 04/29 0700 113 20 128/55 78 95 04/29 0630 116 24 129/66 89 96 04/29 0600 119 20 148/70 100 96 04/29 0534 119 22 140/77 103 96 04/29 0442 36.8 118 18 146/77 100 95 Room air 24 hour I O ending at 0700: 04/29 0700 04/28 1900 Intake Total Output Total Balance Patient 81.818 kg Weight Weight Estimated Measurement Method PATIENT WEIGHT: Weight (lb): Weight (oz): Weight (kg): 81.818 Free Text Obj Notes Free Text Obj Notes: General: Alert and oriented, did not look to be in distress Respiratory: No respiratory distress while being on nasal cannula for oxygen supply Cardiovascular: Regular rate, right chest permanent catheter for dialysis with no surrounding erythema or drainage Abdomen: Soft Musculoskeletal: No edema Neurology: No focal deficits Psychiatry: Calm Diagnosis, Assessment Plan Free Text DxA P Notes Free Text DxA P Notes: #Acute hypoxemic respiratory failure requiring O2 supply by nasal cannula #Suspected underlying pneumonia (could be viral, not necessarily bacterial) versus pulmonary edema #Hypertension #End-stage renal disease on dialysis #Right chest permanent catheter with no signs of infection #Hyperlipidemia #Diabetes mellitus #Obesity Plans: -The patient looked stable with no distress while she was having the echo done at bedside. She was also on dialysis and she was tolerating it very well so we can start on a simple regimen of antibiotics suspecting community-acquired pneumonia even though she was admitted recently. I will start her on ceftriaxone and doxycycline for now -Resume her home meds as tolerated mainly the antihypertensives and antidiabetes , I will start on lantus for baseline glucose control in addition to low sliding scale -Eliquis is documented as part of her medication so will be resumed -Follow up with cardiology and nephrology recommendations Disposition pending clinical improvement. at 1409 RPT #: [id number] END OF REPORT [facility] 2024-04-29 12:28:00 [facility] ([facility]) Int. Cardiology Consult Note REPORT#:[id number] REPORT STATUS: Signed REPORT INITIALIZATION DATE:04/29/24 TIME:1227 PATIENT: ELVIS FREEMAN UNIT #: [id number] ROOM/BED: [place] [address] : 61 AGE: 64 SEX: F ATTEND: Winifred Marion MD ADM AUTHOR: Celestino Vanessa MD REPT SERVICE DT/TIME: 04/29/24 1228 * ALL edits or amendments must be made on the electronic/computer document * History of Present Illness History of Present Illness Requesting clinician: Dr. Marion Reason for consult: Shortness of breath Chief complaint: Shortness of breath HPI: Ms. Freeman is a 64-year-old female with history of hypertension, diabetes, heart failure with preservation fraction, ESRD who is admitted with worsening shortness of breath. Patient denies any chest pain but mentions that she has had a PCI in the past at [facility]. She Becoming more short of breath despite taking 2.5 L out despite yesterday during dialysis and hence came to the ER. She does endorse pedal edema, orthopnea and PND. History - Adult longitudinal Past medical history: Reports: Kidney disease/stones. Additional surgical history: Reviewed. Additional family history: Noncontributory. Smoking status for patients 13 years old or older: Unknown,if ever smoked Allergies: Coded Allergies: No Known Allergies (04/19/24) Review of Systems Additional notes: 12 point review of systems conducted and is negative unless mentioned in the HPI Objective VS/I O: Last Documented: Result Date Time B/P 106/51 04/29 1210 O2 Delivery Nasal cannula 04/29 121 O2 Flow Rate 2 04/29 1210 Temp 36.4 04/29 1210 Pulse 76 04/29 1210 Resp 25 04/29 1210 Pulse Ox 100 04/29 1103 B/P Mean 90 04/29 1101 24 hour I O ending at 0700: 04/29 0700 04/28 1900 Intake Total Output Total Balance Patient 81.818 kg Weight Weight Estimated Measurement Method PATIENT WEIGHT: Weight (lb): Weight (oz): Weight (kg): 81.818 General appearance: alert, awake, oriented Head/Eyes: PERRLA ENT: moist mucosal membranes Neck: full range of motion Cardiovascular: CV assessment: S3 present Respiratory: shortness of breath Abdomen: soft Genitourinary: no bladder distention Neuro/EMBOSSING TOOLSETTER: alert, oriented X 3 Psychiatry: normal affect Assessment Plan Problem List/A P: 1. Atrial fibrillation with rapid ventricular response 2. Hypotension 3. Shortness of breath 4. Abdominal distention 5. Volume overload 6. Pulmonary edema 7. Pericardial effusion 8. NSTEMI (non-ST elevated myocardial infarction) 9. Community acquired pneumonia 10. CHF exacerbation 11. Orthopnea 12. Dyspnea on exertion 13. History of end stage renal disease 14. 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 There is a moderate circumferential pericardial effusion that hopefully will become less with effusion. There is also considerable septal shift with respiration, and I am worried that she also has calcific constriction pericarditis on top. Her past history of anasarca will be explained because of this. -Please send ESR and CRP. -Continue with taking of fluids via dialysis. -Continue with apixaban -Continue with amiodarone 200 mg daily Thank you for the consult. Please call us if you have any questions or concerns , at 1440 RPT #: [id number] END OF REPORT [facility] 2024-04-29 11:30:00 [facility]) Nephrology Consultation Note REPORT#:[id number] REPORT STATUS: Signed REPORT INITIALIZATION DATE:04/29/24 TIME:113 PATIENT: ELVIS FREEMAN UNIT #: [id number] [facility] : 61 AGE: 64 SEX: F ATTEND: Winifred Marion MD ADM AUTHOR: Anson Duncan MD REPT SERVICE DT/TIME: 04/29/24 1130 * ALL edits or amendments must be made on the electronic/computer document * History of Present Illness Reason for consult: esrd HPI: 54-year-old female with history of hypertension, diabetes, CHF, ESRD on hemodialysis,, presented to emergency room complaining of shortness of breath. Patient is ESRD on hemodialysis, hemodialysis on Tuesday and Tuesday. Last dialysis yesterday. Labs reviewed. Chest x-ray reviewed. Renal consulted for inpatient dialysis. History - Adult longitudinal Past medical history: Reports: Kidney disease/stones. Additional surgical history: Reviewed. Additional family history: Noncontributory. Smoking status for patients 13 years old or older: Unknown,if ever smoked Allergies: Coded Allergies: No Known Allergies (04/19/24) Review of Systems Free Text ROS Notes Free Text ROS Notes: 10 points review of systems performed and documented in subjective, otherwise negative. Objective General VS/I O: Vital Signs: Date Time Temp Pulse Resp B/P B/P Pulse O2 O2 Flow FiO2 Mean Ox Delivery Rate 04/29 1103 100 04/29 1101 74 117/75 90 04/29 1015 80 120/59 79 98 04/29 0924 82 27 112/59 81 99 04/29 0801 81 23 113/61 79 100 04/29 0700 113 20 128/55 78 95 04/29 0630 116 24 129/66 89 96 04/29 0600 119 20 148/70 100 96 04/29 0534 119 22 140/77 103 96 04/29 0442 36.8 118 18 146/77 100 95 Room air 24 hour I O ending at 0700: 04/29 0700 04/28 1900 Intake Total Output Total Balance Patient 81.818 kg Weight Weight Estimated Measurement Method PATIENT WEIGHT: Weight (lb): Weight (oz): Weight (kg): 81.818 Medications: Active Meds + DC'd Last 24 Hrs Albumin Human (ALBUMINAR-25% 12.5 GM/50 ML) 25 GM BOLUS PRN IV Mannitol (MANNITOL 25%) 12.5 GM BOLUS PRN IV Sodium Chloride (0.9% Sodium Chloride) 2,000 ML .Q24H PRN IV Perflutren Lipid Microsphere (DEFINITY) 2 ML ONCE PRN IV (CKD) Insulin Human Regular (HumuLIN R VIAL) 5 UNIT STAT STA IV (DC) Aspirin (ASPIRIN CHEWABLE) 324 MG X1ED STA PO (DC) Acetaminophen (TYLENOL EXTRA STRENGTH) 500 MG X1ED STA PO (DC) Benzonatate (TESSALON PERLE) 100 MG ONCE ONE PO (DC) Acetaminophen (TYLENOL EXTRA STRENGTH) 1,000 MG X1ED STA PO (DC) Physical Exam General appearance: awake Head/eyes: normocephalic ENT: normal nose Neck: no JVD C-Spine clearance: no midline tenderness Cardiovascular: no murmur, no rub Respiratory: clear to auscultation Abdomen: non-tender, soft Genitourinary: no bladder distention Extremities: pitting edema Musculoskeletal: no tendereness Neuro/EMBOSSING TOOLSETTER: alert, oriented X 3 Results Findings/Data: Laboratory Tests 04/29 04/29 04/29 0858 0636 0510 Chemistry Sodium (136 - 145 mmol/L) 133 L Potassium (3.4 - 5.0 mmol/L) 4.1 Chloride (98 - 107 mmol/L) 96 L Carbon Dioxide (21 - 32 mmol/L) 30 Anion Gap (4 - 15 GAP calc) 7 BUN (7 - 18 MG/DL) 25 H Creatinine (0.6 - 1.0 MG/DL) 3.0 H Glomerular Filtr Rate (>60 estGFR) 17 L Glucose (70 - 110 MG/DL) 428 H POC Glucose (70 - 110 mg/dL) 379 H Calcium (8.5 - 10.1 MG/DL) 8.7 Troponin I High Sens (0 - 54 ng/L) 119.4 H 134.7 *H NT-Pro-B Natriuret Pep (0 - 100 PG/ML) 8899 H Laboratory Tests 04/29 0755 Coagulation D-Dimer (215 - 500 ng/mLFEU) 6653 *H Laboratory Tests 12/01 0510 Hematology WBC (3.5 - 11.0 K/mm3) 9.2 RBC (4.70 - 6.10 M/mm3) 3.19 L Hgb (10.4 - 14.9 G/DL) 7.8 L Hct (31.5 - 44.1 %) 27.0 L MCV (84.5 - 98.6 Fl) 84.6 MCH (27.0 - 34.2 pg) 24.5 L MCHC (31.5 - 34.0 G/DL) 28.9 L RDW (11.5 - 14.5 SD) 16.3 H Plt Count (150 - 450 K/mm3) 412 MPV (7.0 - 10.5 fL) 11.40 H Neut % (Auto) (40 - 76 %) 66.3 Lymph % (Auto) (20.5 - 51.1 %) 17.8 L Woodson % (Auto) (1.7 - 9.3 %) 12.0 H Eos % (Auto) (0.0 - 6.0 %) 2.2 Baso % (Auto) (0.0 - 2.0 %) 1.0 Neut # (Auto) (1.8 - 7.6 K/mm3) 6.1 Lymph # (Auto) (0.6 - 3.2 K/mm3) 1.6 Woodson # (Auto) (0.3 - 1.1 K/mm3) 1.1 Eos # (Auto) (0.0 - 0.4 K/mm3) 0.2 Baso # (Auto) (0.0 - 0.1 K/mm3) 0.1 Abs Immat Gran (auto) (0.00 - 0.03 x10 3/uL) 0.06 H Immature Gran % (0.0 - 5.0 %) 0.7 Nucleated RBC % (0.0 - 1.0 /100WBC%) 0.0 Radiology data: Recent Impressions: RADIOLOGY - XR CHEST 2 V 04/29 519 Report Impression - Status: SIGNED Entered: 04/29/2024 0539 IMPRESSION: 1. Right internal jugular hemodialysis catheter tip projects over the right atrium. 2. Low lung volumes resulting in bibasilar consolidation and vascular crowding. 3. Left retrocardiac opacity likely represents a combination of atelectasis and layering pleural effusion with or without superimposed pneumonia. Impression By: [email or web address] Virginia Deras. Diagnosis, Assessment Plan Free Text DxA P Notes Free Text DxA P Notes: 1. ESRD on hemodialysis Hemodialysis on Tuesday and Tuesday. 2. Fluid overload. 3. Chronic anemia renal disease 4. Secondary hyperparathyroidism. 5. Acute on chronic CHF. 6. Diabetes mellitus. 7. Hypertension. Recommendation. Limit fluid to 1 L a day. Drug dose adjustment to GFR. Urgent dialysis, target fluid removal 3 L. Adjust Epogen subcutaneous. Adjust phosphorus binders. Thank you for consultation, any question please call [phone]. at 1134 RPT #: [id number] END OF REPORT [facility] 2024-04-29 05:04:00 [facility] ([facility]) EMERGENCY PROVIDER REPORT REPORT#:[id number] REPORT STATUS: Signed DATE:04/29/24 TIME:0504 PATIENT: ELVIS FREEMNA UNIT #: [id number] ROOM/BED: [place] [address] : 61 AGE: 64 SEX: F PCP PHYS: Yaneth Hopson MD SERVICE AUTHOR: Pablo Vaughan MD REP SRV REP SRV TM: 0504 * ALL edits or amendments must be made on the electronic/computer document * Pablo Vaughan 04/29/24 0504: HPI-Dyspnea/Wheezing Free Text HPI Notes Free Text HPI Notes 64-year-old female history of heart failure, ESRD (Tuesday; through right TDC; makes urine) presents to the ED for shortness of breath. Patient has been recently diagnosed with pneumonia however has been having persistent cough and is unable to lie flat and feels short of breath with exertion. Patient's last dialysis session was yesterday, she is compliant with her medications. General Initial Greet Date/Time 04/29/24 0448 Presentation Chief Complaint Shortness of breath Review of Systems ROS Statements All systems rev neg except as marked. Focused Review of Systems Constitutional Denies: Chills, Fever, Lethargy. Respiratory Reports: Shortness of breath. Cardiovascular Denies: Chest pain, Syncope. Musculoskeletal Denies: Back pain, Extremity pain. Skin Denies: Diaphoresis, Rash. Allergy/Immun Denies: Hives, Itching. Past Medical History - Adult Stated Complaint COUGHING, SOB, 3 DAYS Allergies Coded Allergies: No Known Allergies (04/19/24) Home Medications Reported Medications APIXABAN (ELIQUIS) 5 MG PO BID methocarbamoL (ROBAXIN) 500 MG PO QID BUMETANIDE (BUMEX) 2 MG PO DAILY CLOPIDOGREL (PLAVIX) 75 MG PO DAILY EZETIMIBE 10 MG PO DAILY GABAPENTIN (NEURONTIN) 200 MG PO BID INSULIN NPH/REG INSULIN HUM (NovoLIN 70/30) 15 UNITS SUBQ BID ROSUVASTATIN 20 MG PO DAILY SEVELAMER CARBONATE (RENVELA) 800 MG PO TID MEALS Past Medical History: Reports: Kidney disease/stones. Additional Surgical History Reviewed. Additional Family History Noncontributory. Smoking status for patients 13 years old or older: Unknown,if ever smoked Physical Exam Vital Signs Review of Vital Signs Reviewed Focused PE General/Const General/Const Awake, Alert Ears/Nose/Throat Ears/Nose/Throat Airway patent, Mucous membranes moist, Pharynx NL MS Neck Neck Atraumatic, Supple, No meningismus, Full range of motion, No swelling, Non-tender, No masses Resp/Chest Respiratory/Chest Breath sounds NL, Breath sounds = bilat, No respiratory distress, No rales, No rhonchi, No wheezing, No retractions, No stridor Cardiovascular Cardiovascular Regular rhythm, Heart sounds NL Heart Rate/Rhythm Tachycardia. Abdomen/GI Abdomen/GI Soft, Non-tender, No guarding, No rebound MS Back Back Inspection NL, Non-tender, No CVA tenderness MS Lower Extrem Text/Dict Notes 1+ bilateral lower extremity edema Skin Text/Dict Notes Right TDC Neurologic Neurologic Oriented X3, Speech NL, No motor deficits, No sensory deficits Interpretation Diagnostics Point of Care Testing Pulse Oximetry Pulse Ox % 95 On: Room air Interpretation Interpreted by me Time 0442 ECG #1 Interpretation Text/Dict Note EKG interpreted by me sinus tachycardia heart rate 128 TN 160 QRS 74 QTc [address] changes, T wave inversions, interval changes, peaked T waves. 04/29/2024 0533 Re-Evaluation MDM Free Text MDM Notes Free Text MDM Notes Medical Decision Making Medical Problems Complexity *Problems Addressed: Shortness of breath *Acuity: Moderate (2 of 3) 1: Tests, Documents, Independent Historians (3) *Review of prior external notes(non-EM): No known EM notes for review in our system *Unique Tests Ordered(List): CBC, BMP, troponin, BNP, D-dimer, EKG, chest x-ray *Independent Review of Test Performed (Y/N): Yes patient noted to have an elevated troponin level however expected in the setting of ESRD; ekg without signs of stemi. Repeat order placed. Patient noted to have an elevated BNP level to 8000 with mild pulmonary congestion upon chest x-ray; o2 sat normal. pt also found to be hyperglycemic *Independent Historian(s) why: Patient 2: Independent Interpretation of Tests *I personally, independently reviewed and provided interpretation of all clinical DATA in this patient care including all relevant labs, imaging and ECGs , as available: Yes as stated above. Social determinants of health were considered and impacted medical decision making and as a result part of patient's plan of care Clinical Impression(s) : ESRD volume overload, Heart failure exacerbation, hyperglycemia, anemia of chronic disease patient signed out to oncoming physician for further evaluation and management int he ed ED Course Medication(s) Ordered Medication(s) Ordered: Central Nervous System Agents Sig/Dirk Start time Last Medication Dose Route Stop Time Status Admin Aspirin 324 MG X1ED STA 04/29 0910 DC 04/29 PO 04/29 0911 0940 Acetaminophen 500 MG X1ED STA 04/29 0649 DC PO 04/29 0650 Acetaminophen 1,000 MG X1ED STA 04/29 0504 DC 04/29 PO 04/29 0505 0539 Diagnostic Agents Sig/Dirk Start time Last Medication Dose Route Stop Time Status Admin Perflutren Lipid 2 ML ONCE PRN 04/29 0945 CKD Microsphere IV 04/30 0944 Hormones And Synthetic Substit Sig/Dirk Start time Last Medication Dose Route Stop Time Status Admin Insulin Human Regular 5 UNIT STAT STA 04/29 0911 DC 04/29 IV 04/29 0912 0940 Respiratory Tract Agents Sig/Dirk Start time Last Medication Dose Route Stop Time Status Admin Benzonatate 100 MG ONCE ONE 04/29 0515 DC 04/29 PO 04/29 0516 0539 Patient Discharge Departure Vital Signs/Condition Condition Stable Discharge/Care Plan (Auto) Prescriptions Current Visit Scripts AMIODARONE (PACERONE) 200 MG PO DAILY AMIODARONE (PACERONE) 200 MG PO DAILY #30 TAB Ref 3 FUROSEMIDE (LASIX) 40 MG PO BID FUROSEMIDE (LASIX) 40 MG PO BID #32 TABS Ref 2 On Non DIalysis days only! Iveth Fields 04/29/2413: HPI-Dyspnea/Wheezing Presentation )( Sudden in Onset? Yes Risk-Dyspnea/Wheezing Risk Stratification HEART for MACE HEART for MACE Response Value History Low index of suspicion 0 ECG Interpretation Normal ECG 0 Age Age 45 - 65 1 Risk Factors for CAD 3+ CAD risk factors 2 Troponin 1 to 3x NL troponin 1 Total 4 Physical Exam Vital Signs Vital Signs First Documented: Result Date Time Pulse Ox 95 04/29 442 B/P 146/77 04/29 044 B/P Mean 100 04/29 442 O2 Delivery Room air 04/29 442 Temp 36.8 04/29 442 Pulse 118 04/29 442 Resp 18 04/29 442 Last Documented: Result Date Time Pulse Ox 99 04/29 924 B/P 112/59 04/29 924 B/P Mean 81 04/29 924 Pulse 82 04/29 924 Resp 27 04/29 924 O2 Delivery Room air 04/29 442 Temp 36.8 04/29 442 Review of Vital Signs Reviewed Interpretation Diagnostics Lab Results Interpretation Results Laboratory Tests 04/29/24 0510: [Embedded Image Not Available] Laboratory Tests: 04/29 04/29 04/29 0858 0755 0636 Chemistry POC Glucose (70 - 110 mg/dL) 379 H Troponin I High Sens (0 - 54 ng/L) 119.4 H Coagulation D-Dimer (215 - 500 ng/mLFEU) 6653 *H 04/29 0510 Chemistry Sodium (136 - 145 mmol/L) 133 L Potassium (3.4 - 5.0 mmol/L) 4.1 Chloride (98 - 107 mmol/L) 96 L Carbon Dioxide (21 - 32 mmol/L) 30 Anion Gap (4 - 15 GAP calc) 7 BUN (7 - 18 MG/DL) 25 H Creatinine (0.6 - 1.0 MG/DL) 3.0 H Glomerular Filtr Rate (>60 estGFR) 17 L Glucose (70 - 110 MG/DL) 428 H Calcium (8.5 - 10.1 MG/DL) 8.7 Troponin I High Sens (0 - 54 ng/L) 134.7 *H NT-Pro-B Natriuret Pep (0 - 100 PG/ML) 8899 H Hematology WBC (3.5 - 11.0 K/mm3) 9.2 RBC (4.70 - 6.10 M/mm3) 3.19 L Hgb (10.4 - 14.9 G/DL) 7.8 L Hct (31.5 - 44.1 %) 27.0 L MCV (84.5 - 98.6 Fl) 84.6 MCH (27.0 - 34.2 pg) 24.5 L MCHC (31.5 - 34.0 G/DL) 28.9 L RDW (11.5 - 14.5 SD) 16.3 H Plt Count (150 - 450 K/mm3) 412 MPV (7.0 - 10.5 fL) 11.40 H Neut % (Auto) (40 - 76 %) 66.3 Lymph % (Auto) (20.5 - 51.1 %) 17.8 L Woodson % (Auto) (1.7 - 9.3 %) 12.0 H Eos % (Auto) (0.0 - 6.0 %) 2.2 Baso % (Auto) (0.0 - 2.0 %) 1.0 Neut # (Auto) (1.8 - 7.6 K/mm3) 6.1 Lymph # (Auto) (0.6 - 3.2 K/mm3) 1.6 Woodson # (Auto) (0.3 - 1.1 K/mm3) 1.1 Eos # (Auto) (0.0 - 0.4 K/mm3) 0.2 Baso # (Auto) (0.0 - 0.1 K/mm3) 0.1 Abs Immat Gran (auto) (0.00 - 0.03 x10 3/uL) 0.06 H Immature Gran % (0.0 - 5.0 %) 0.7 Nucleated RBC % (0.0 - 1.0 /100WBC%) 0.0 Microbiology: Date/Time Procedure - Status Source Growth 04/29 449 Influenza Virus Type B Antigen - CAN NASAL Cancelled: Cancelled via OE: Physician Decision 04/29 449 Influenza Virus Type A Antigen - CAN NASAL Cancelled: Cancelled via OE: Physician Decision Recent Impressions: RADIOLOGY - XR CHEST 2 V 04/29 519 Report Impression - Status: SIGNED Entered: 04/29/2024 0539 IMPRESSION: 1. Right internal jugular hemodialysis catheter tip projects over the right atrium. 2. Low lung volumes resulting in bibasilar consolidation and vascular crowding. 3. Left retrocardiac opacity likely represents a combination of atelectasis and layering pleural effusion with or without superimposed pneumonia. Impression By: Sandra - Gee Deras. Lab Imaging Statement Laboratory radiographic studies reviewed and considered in the medical decision-making. ECG #2 Interpretation Text/Dict Note Normal sinus rhythm, heart rate 82, normal TN interval, normal QRS interval, no ST elevation or depression. Flattening of the T waves. Date 04/29/24 Time 0756 Interpreted by and reviewed by me, Independently interpreted, ED physician Re-Evaluation MDM )( Re-Evaluation/Progress #1 Time of Re-Eval 09 )( Re-Eval Status Unchanged Differential Diagnosis )( Differential Diagnosis fluid overload due to ESRD, CHF exacerbation, ACS, electrolyte abnormality Free Text MDM Notes Free Text MDM Notes 64-year-old female with a history of hypertension, diabetes, CHF, afib, pericardial effusion and end-stage renal disease who presents with shortness of breath. Last hemodialysis was yesterday. EKG negative for STEMI. Troponin positive. Repeat troponin downtrending. Suspect elevated troponin due to underlying end-stage renal disease. Will continue to trend BNP elevated. Chest x-ray obtained my interpretation is left pleural effusion central pulmonary vascular congestion. Hyperglycemia due to type 2 diabetes mellitus regular insulin 5 units ordered D-dimer positive. I reviewed the patient's recent CTA chest which was negative for pulmonary embolism. Plan for hospitalization for fluid overload, hemodialysis. Dr. Farris consulted Cardiology consulted due to elevated troponin, and for further evaluation of chronic pericardial effusion I discussed the case with the hospitalist who accepted the patient for admission Patient Discharge Departure Vital Signs/Condition Vital Signs First Documented: Result Date Time Pulse Ox 95 04/29 442 B/P 146/77 04/29 442 B/P Mean 100 04/29 442 O2 Delivery Room air 04/29 442 Temp 36.8 04/29 442 Pulse 118 04/29 442 Resp 18 04/29 442 Last Documented: Result Date Time Pulse Ox 99 04/29 924 B/P 112/59 04/29 924 B/P Mean 81 04/29 924 Pulse 82 04/29 924 Resp 27 04/29 924 O2 Delivery Room air 04/29 442 Temp 36.8 04/29 442 All vital signs available at the time of this entry have been reviewed. Clinical Impression Clinical Impression Primary Impression: CHF exacerbation Secondary Impressions: Dyspnea on exertion, History of end stage renal disease, Hyperglycemia, Orthopnea, Volume overload Time of Impression 911 Disposition Decision Hospitalize [facility] Physician Name Guillermina Boggs MD [facility] Physician Hospitalist Request Time 945 Request Date 04/29/24 )( Accepts Hospitalization Yes )( Reason for Hospitalization fluid overload )( Accepted Time 945 )( Accepted Date 04/29/24 Call Information will see patient Critical Care Time Spent (minutes): 36 Services Performed Patient management by me, Time spent at bedside, Reviewing test results, Reviewing imaging, Discussing patient care, Documentation in record Separately billable procedures excluded from time. Patient was critically ill due to: fluid overload in ESRD patient needing urgent hemodialysis, elevated troponin rule out acute myocardial injury My treatment and management were: Aspirin, cardiopulmonary monitoring, cardiology consult, echocardiogram ordered, nephrology consult for hemodialysis. CC Note 1 Total critical care time [36] minutes. Total critical care time documented does not include time spent on separately billed procedures or the services of residents, students, nurses or physician assistants. I personally saw and examined the patient. I have reviewed all diagnostic interpretations and treatment plans as written. I was present for the desai portions of any procedures performed and the inclusive time noted in any critical care statement. Critical care time includes patient management by me, time spent at the patients bedside, time to review lab and imaging results, discussing patient care, documentation in the medical record, and time spent with the family or caregiver. CC Note 2 The high probability of sudden, clinically significant deterioration in the patient's condition required the highest level of my preparedness to intervene urgently. The services I provided to this patient were to treat and/or prevent clinically significant deterioration that could result in severe disability or . Services included the following: chart data review, reviewing nursing notes and/ or old charts, documentation time, energy consultant collaboration regarding findings and treatment options, medication orders and management, direct patient care, re -evaluations, vital sign assessments and ordering, interpreting and reviewing diagnostic studies/lab tests. Aggregate critical care time was [36] minutes, which includes only time during which I was engaged in work directly related to the patient's care, as described above, whether at the bedside or elsewhere in the Emergency Department. It did not include time spent performing other reported procedures or the services of residents, students, nurses or physician assistants. at 1246 at 0703 RPT #: [id number] END OF REPORT [facility] 2024-04-24 11:08:00 [facility] Hospitalist Progress Note REPORT#:[id number] REPORT STATUS: Signed REPORT INITIALIZATION DATE:04/24/24 TIME:1108 PATIENT: ELVIS FREEMAN UNIT #: [id number] ROOM/BED: [place] [id number] : 61 AGE: 64 SEX: F ATTEND: Mushtaq Mayorga MD ADM AUTHOR: Mushtaq Mayorga MD REPT SERVICE DT/TIME: 04/24/24 1108 * ALL edits or amendments must be made on the electronic/computer document * Subjective Chief complaint: Sudden onset shortness of breath HPI: This is a 63-year-old female presenting today with a chief complaint of shortness of breath and abdominal distention. EMS was called. They found her in A-fib with a heart rate of 180. She was also hypoxic to 79%, hypotensive with a blood pressure of 89/45. They gave her Cardizem with slight improvement in rate to 140s. She remained hypotensive. They called for verbal orders and I recommended that she be placed on CPAP and given 100 cc bolus if needed after that she could be given Levophed. She received 100 cc bolus and placed on CPAP. She is a ESRD patient on Tuesday dialysis still making urine. She went to her last session and had a full session. She reports that today she was having difficulty breathing and felt that her abdomen was distended. She also has some chest heaviness as well as palpitations. She called EMS for that. She denies any fevers, chills, nausea, vomiting, abdominal pain, diarrhea, constipation, dysuria, flank pain, rash. Reports lower extremity edema. Additionally patient reports that she was recently discharged about a week ago from [facility]. She had been there for 3 weeks under treatment for same reasons. She will had a possible ablation done to the heart. Patient has a hospital monitor. Review of Systems Free Text ROS Notes Free Text ROS Notes: Patient reports shortness of breath, chest pressure, palpitations, edema and abdominal distention. Denies nausea, vomiting, abdominal pain, dizziness and syncope. Objective General VS/I O: Vital Signs: Date Time Temp Pulse Resp B/P B/P Pulse O2 O2 Flow FiO2 Mean Ox Delivery Rate 04/24 1315 36.2 71 20 146/68 98 Room air 04/24 1200 36.1 78 20 138/74 95 99 Room air 04/24 1129 36.4 12 04/24 0800 36.8 79 20 136/79 98 93 Room air 04/24 0735 100 Nasal 3 32 cannula 04/24 0530 75 19 145/72 102 99 04/24 0515 74 20 98/53 72 99 04/24 0500 74 19 139/76 102 79 04/24 0449 36.3 04/24 0445 75 19 124/69 90 82 04/24 0430 76 17 125/74 94 75 04/24 0415 75 19 120/80 93 04/24 0400 77 22 124/70 92 04/24 0345 77 20 124/72 88 04/24 0330 76 20 127/68 89 100 04/24 0315 74 18 121/69 89 93 04/24 0300 75 24 125/71 92 93 04/24 0245 75 22 130/69 92 98 04/24 0230 74 18 121/60 82 99 04/24 0215 74 27 125/66 90 100 04/24 0200 75 22 138/74 98 94 04/24 0145 75 21 132/69 96 92 04/24 0130 75 22 125/61 90 98 04/24 0115 77 25 124/71 93 97 04/24 0100 74 20 117/63 85 100 04/24 0045 74 14 120/59 82 100 04/24 0030 78 24 95/54 71 96 04/24 0020 74 97 30 04/24 0015 75 19 87/48 64 97 04/24 0000 75 20 104/52 75 97 04/23 2345 77 23 126/65 91 100 04/23 2330 79 23 129/81 97 98 04/23 2318 36.8 04/23 2315 78 21 111/53 76 96 04/23 2300 77 22 132/72 97 97 04/23 2245 79 23 129/67 93 100 04/230 78 23 134/66 92 99 04/235 78 22 146/75 102 99 04/230 76 24 142/73 102 100 04/23 2145 79 23 141/68 98 99 04/230 80 24 150/74 105 98 04/23 2115 79 22 141/67 97 97 04/23 2100 79 26 129/62 88 97 04/23 2045 78 22 141/66 95 97 04/23 2030 79 21 143/66 92 96 04/23 2015 80 24 135/69 95 96 04/23 2000 99 Room air 21 04/23 2000 79 20 123/58 84 100 04/23 1945 79 20 110/54 77 100 04/23 1938 36.3 04/23 1930 79 20 119/57 82 100 04/23 1915 77 20 117/59 85 100 04/23 1900 78 18 116/56 80 99 04/23 1800 78 21 144/66 93 98 04/23 1700 82 22 119/59 80 99 04/23 1642 79 21 128/96 108 97 04/23 1616 36.8 04/23 1600 36.8 100 Room air 24 hour I O ending at 0700: 04/24 0700 04/23 1900 Intake Total 240 Output Total 3500 Balance -3260 Intake, Oral 240 Output, 3500 Hemodialysis PATIENT WEIGHT: Weight (lb): 177 Weight (oz): 6.39 Weight (kg): 80.467 Medications: Active Meds + DC'd Last 24 Hrs Apixaban (ELIQUIS) 5 MG Q12HR PO Cefdinir (OMNICEF) 300 MG DAILY PO (CKD) Azithromycin (ZITHROMAX) 500 MG DAILY PO Heparin Sodium/Dextrose (HEPARIN 25,000 UNITS/250ML) 250 ML ASDIR IV (DC ) Sodium Chloride (0.9% Sodium Chloride) 2,000 ML .Q24H PRN IV (DC) Insulin Human Lispro (Admelog) 0 AC HS SUBQ Amiodarone HCl (CORDARONE) 400 MG BID PO (CKD) Insulin Glargine (Lantus/Semglee) 10 UNIT BEDTIME SUBQ Ropinirole HCl (REQUIP) 0.5 MG BEDTIME PO Atorvastatin Calcium (LIPITOR) 40 MG BEDTIME PO Heparin Sodium (Porcine) (HEPARIN SODIUM) ENTER DOSE ASDIR PRN IV (DC) Clopidogrel Bisulfate (Plavix) 75 MG DAILY PO Ezetimibe (ZETIA) 10 MG DAILY PO Furosemide (LASIX) 60 MG BID 9A 5P IV Polyethylene Glycol (MIRALAX) 17 GM DAILY PO Dextrose (GLUCOSE) 4 GM ASDIR PRN PO Dextrose/Water (DEXTROSE 10% IN WATER 250 ML) 250 ML ASDIR IV Glucagon (GLUCAGON) 1 MG ASDIR PRN IM Gabapentin (NEURONTIN) 200 MG BID PO Melatonin (Melatonin) 5 MG BEDTIME PO Bisacodyl (DULCOLAX) 10 MG DAILY PRN PRN RECTAL Heparin Sodium (HEPARIN SODIUM) 3,600 UNITS ASDIR PRN IV Albumin Human (ALBUMINAR-25% 12.5 GM/50 ML) 25 GM BOLUS PRN IV Mannitol (MANNITOL 25%) 12.5 GM BOLUS PRN IV Norepinephrine Bitartrate (Levophed 16 MG/250 ML NS) 250 ML X1ED STA IV Dietitian nutrition assessment The data set between the solid lines has been imported from the dietitian's assessment. BMI Calculated: 32.4 Nutrition related diagnosis: Nutrition diagnosis details: Nutrition problem: Nutrition etiology: Nutrition signs and symptoms: Nutrition prescription: Dietitian name: Assessment completed: Free Text Obj Notes Free Text Obj Notes: HEENT: Atraumatic CVS: S1-S2 audible Resp: Bilateral Rales Abdomen: Protuberant Extremities: Bilateral lower extremity pitting edema 3+ Neuro: AAO x 3, no focal deficits, moving all extremities Diagnosis, Assessment Plan Problem List/A P: 1. Atrial fibrillation with rapid ventricular response 2. Hypotension 3. Shortness of breath 4. Abdominal distention 5. Volume overload 6. Pulmonary edema 7. Pericardial effusion 8. NSTEMI (non-ST elevated myocardial infarction) 9. Community acquired pneumonia Free Text DxA P Notes Free text DxA P notes: Can be downgraded to telemetry Continue telemetry monitoring Continue oral Amio Resume clopidogrel Resume gabapentin Resume ezetimibe DC heparin drip and switch over to Eliquis home dose Follow blood cultures Follow sputum culture ID consulted will appreciate input Continue IV antibiotics Vanc stopped MRSA screen neg Nephrology consultation Cardiology consultation appreciated Limited echo reviewed Continue cefepime add azithromycin Follow cultures Echo limited to be reviewed Continue amnio drip Start clopidogrel Continue home meds if no contraindications Patient to be discharged in a.m. after another dialysis session. Given upcoming holiday patient would not be able to get another dialysis session till Tuesday or Tuesday. Per cardiology on discharge patient should be sent on Eliquis and Plavix. Also sent on amiodarone 200 Mg once daily. Patient should be on Lasix on nondialysis days. Full code Renal diet Out of bed to chair O2 by nasal cannula 2 L titrate off Patient may need Pulm as outpatient for Sleep Study at 1434 RPT #: [id number] END OF REPORT [facility] 2024-04-24 08:57:00 [facility] ([facility]) Nephrology Progress Note REPORT#:[id number] REPORT STATUS: Signed REPORT INITIALIZATION DATE:04/24/24 TIME:856 PATIENT: ELVIS FREEMAN UNIT #: [id number] ROOM/BED: [place] [id number] : 61 AGE: 64 SEX: F ATTEND: Mushtaq Mayorga MD ADM AUTHOR: Anson Duncan MD REPT SERVICE DT/TIME: 04/24/24 0857 * ALL edits or amendments must be made on the electronic/computer document * Subjective HPI: 63-year-old female with history of ESRD on hemodialysis, brought to the hospital with shortness of breath and abdominal distention. Patient is ESRD on hemodialysis, hemodialysis on Tuesday and Tuesday. Last dialysis on Tuesday. Patient today did not feel well, she complained of shortness of breath and abdominal distention. EMS was called. Patient found to have A-fib with RVR, hypotension. Labs reviewed. Chest x-ray reviewed. Renal consulted for inpatient dialysis. Comments: Denies sob. Review of Systems Free Text ROS Notes Free Text ROS Notes: On review of system performed documented subjective, otherwise negative. Objective General VS/I O: Vital Signs: Date Time Temp Pulse Resp B/P B/P Pulse O2 O2 Flow FiO2 Mean Ox Delivery Rate 04/24 1315 36.2 71 20 146/68 98 Room air 04/24 1200 36.1 78 20 138/74 95 99 Room air 04/24 1129 36.4 12 04/24 0800 36.8 79 20 136/79 98 93 Room air 04/24 0735 100 Nasal 3 32 cannula 04/24 0530 75 19 145/72 102 99 04/24 0515 74 20 98/53 72 99 04/24 0500 74 19 139/76 102 79 04/24 0449 36.3 04/24 0445 75 19 124/69 90 82 04/24 0430 76 17 125/74 94 75 04/24 0415 75 19 120/80 93 04/24 0400 77 22 124/70 92 04/24 0345 77 20 124/72 88 04/24 0330 76 20 127/68 89 100 04/24 0315 74 18 121/69 89 93 04/24 0300 75 24 125/71 92 93 04/24 0245 75 22 130/69 92 98 04/24 0230 74 18 121/60 82 99 04/24 0215 74 27 125/66 90 100 04/24 0200 75 22 138/74 98 94 04/24 0145 75 21 132/69 96 92 04/24 0130 75 22 125/61 90 98 04/24 0115 77 25 124/71 93 97 04/24 0100 74 20 117/63 85 100 04/24 0045 74 14 120/59 82 100 04/24 0030 78 24 95/54 71 96 04/24 0020 74 97 30 04/24 0015 75 19 87/48 64 97 04/24 0000 75 20 104/52 75 97 04/23 2345 77 23 126/65 91 100 04/23 2330 79 23 129/81 97 98 04/23 2318 36.8 04/23 2315 78 21 111/53 76 96 04/23 2300 77 22 132/72 97 97 04/23 2245 79 23 129/67 93 100 04/230 78 23 134/66 92 99 04/235 78 22 146/75 102 99 04/23 2200 76 24 142/73 102 100 04/235 79 23 141/68 98 99 04/230 80 24 150/74 105 98 04/23 2115 79 22 141/67 97 97 04/23 2100 79 26 129/62 88 97 04/23 2045 78 22 141/66 95 97 04/23 2030 79 21 143/66 92 96 04/23 2015 80 24 135/69 95 96 04/23 2000 99 Room air 21 04/23 2000 79 20 123/58 84 100 04/23 1945 79 20 110/54 77 100 04/23 1938 36.3 04/23 1930 79 20 119/57 82 100 04/23 1915 77 20 117/59 85 100 04/23 1900 78 18 116/56 80 99 04/23 1800 78 21 144/66 93 98 04/23 1700 82 22 119/59 80 99 04/23 1642 79 21 128/96 108 97 04/23 1616 36.8 04/23 1600 36.8 100 Room air 24 hour I O ending at 0700: 04/24 0700 04/23 1900 Intake Total 240 Output Total 3500 Balance -3260 Intake, Oral 240 Output, 3500 Hemodialysis Medications Active Meds + DC'd Last 24 Hrs Apixaban (ELIQUIS) 5 MG Q12HR PO Cefdinir (OMNICEF) 300 MG DAILY PO (CKD) Azithromycin (ZITHROMAX) 500 MG DAILY PO Heparin Sodium/Dextrose (HEPARIN 25,000 UNITS/250ML) 250 ML ASDIR IV (DC ) Sodium Chloride (0.9% Sodium Chloride) 2,000 ML .Q24H PRN IV (DC) Insulin Human Lispro (Admelog) 0 AC HS SUBQ Amiodarone HCl (CORDARONE) 400 MG BID PO (CKD) Insulin Glargine (Lantus/Semglee) 10 UNIT BEDTIME SUBQ Ropinirole HCl (REQUIP) 0.5 MG BEDTIME PO Atorvastatin Calcium (LIPITOR) 40 MG BEDTIME PO Heparin Sodium (Porcine) (HEPARIN SODIUM) ENTER DOSE ASDIR PRN IV (DC) Clopidogrel Bisulfate (Plavix) 75 MG DAILY PO Ezetimibe (ZETIA) 10 MG DAILY PO Furosemide (LASIX) 60 MG BID 9A 5P IV Polyethylene Glycol (MIRALAX) 17 GM DAILY PO Dextrose (GLUCOSE) 4 GM ASDIR PRN PO Dextrose/Water (DEXTROSE 10% IN WATER 250 ML) 250 ML ASDIR IV Glucagon (GLUCAGON) 1 MG ASDIR PRN IM Gabapentin (NEURONTIN) 200 MG BID PO Melatonin (Melatonin) 5 MG BEDTIME PO Bisacodyl (DULCOLAX) 10 MG DAILY PRN PRN RECTAL Heparin Sodium (HEPARIN SODIUM) 3,600 UNITS ASDIR PRN IV Albumin Human (ALBUMINAR-25% 12.5 GM/50 ML) 25 GM BOLUS PRN IV Mannitol (MANNITOL 25%) 12.5 GM BOLUS PRN IV Norepinephrine Bitartrate (Levophed 16 MG/250 ML NS) 250 ML X1ED STA IV Physical Exam General appearance: awake Head/eyes: normocephalic ENT: normal nose Neck: no JVD C-Spine clearance: no midline tenderness Cardiovascular: normal heart sounds Respiratory: clear to auscultation Abdomen: soft Genitourinary: no bladder distention Extremities: no edema Musculoskeletal: no tendereness Neuro/EMBOSSING TOOLSETTER: alert, oriented X 3 Results Findings/Data: Laboratory Tests 04/24 04/24 04/23 04/23 1128 0519 2101 1614 Chemistry Sodium (136 - 145 mmol/L) 133 L Potassium (3.4 - 5.0 mmol/L) 4.0 Chloride (98 - 107 mmol/L) 98 Carbon Dioxide (21 - 32 mmol/L) 29 Anion Gap (4 - 15 GAP calc) 6 BUN (7 - 18 MG/DL) 20 H Creatinine (0.6 - 1.0 MG/DL) 4.1 H Glomerular Filtr Rate (>60 estGFR) 12 L Glucose (70 - 110 MG/DL) 142 H POC Glucose (70 - 110 mg/dL) 249 H 264 H 267 H Calcium (8.5 - 10.1 MG/DL) 8.7 Laboratory Tests 04/24 519 Coagulation PTT ([place]) (26 - 35 SECONDS) 53.6 H Laboratory Tests 04/24 519 Hematology WBC (3.5 - 11.0 K/mm3) 10.6 RBC (4.70 - 6.10 M/mm3) 3.01 L Hgb (10.4 - 14.9 G/DL) 7.4 L Hct (31.5 - 44.1 %) 25.2 L MCV (84.5 - 98.6 Fl) 83.7 L MCH (27.0 - 34.2 pg) 24.6 L MCHC (31.5 - 34.0 G/DL) 29.4 L RDW (11.5 - 14.5 SD) 16.6 H Plt Count (150 - 450 K/mm3) 331 MPV (7.0 - 10.5 fL) 10.80 H Neut % (Auto) (40 - 76 %) 67.2 Lymph % (Auto) (20.5 - 51.1 %) 17.8 L Woodson % (Auto) (1.7 - 9.3 %) 13.1 H Eos % (Auto) (0.0 - 6.0 %) 0.9 Baso % (Auto) (0.0 - 2.0 %) 0.6 Neut # (Auto) (1.8 - 7.6 K/mm3) 7.1 Lymph # (Auto) (0.6 - 3.2 K/mm3) 1.9 Woodson # (Auto) (0.3 - 1.1 K/mm3) 1.4 H Eos # (Auto) (0.0 - 0.4 K/mm3) 0.1 Baso # (Auto) (0.0 - 0.1 K/mm3) 0.1 Abs Immat Gran (auto) (0.00 - 0.03 x10 3/uL) 0.04 H Immature Gran % (0.0 - 5.0 %) 0.4 Nucleated RBC % (0.0 - 1.0 /100WBC%) 0.0 Laboratory Tests 04/24 519 Toxicology Random Vancomycin (5 - 40 mcG/ML) 8 Diagnosis, Assessment Plan Free Text A P: 1. ESRD on hemodialysis Hemodialysis on Tuesday and Tuesday. 2. Hyponatremia. 3. Fluid overload. 4. Chronic anemia. 5. A-fib with RVR. 6. Elevated troponin. Recommendations: 04/24: Hemodialysis today. Target fluid removal 2 L. 04/23: Lower extremity swelling. Hypervolemic. Hemodialysis today. Target fluid removal 2 L. 04/22: No need for HD today. 04/21: Remains Hypervoelmic. HD today, targer 3L. 04/20: Hypervolemic. HD today. 04/19: Hemodialysis today. Target for removal 2 to 3 L. Renal restriction diet once patient is able to tolerate p.o. Limit fluid to 1 L a day. Avoid NSAID. Status adjustment to GFR. Epogen subcutaneous. Check phosphorus, adjust phosphorus binders. Thank you for consultation, any question please call [phone] at 1423 RPT #: [id number] END OF REPORT [facility] 2024-04-23 23:51:00 [facility] ([facility] Cardiology Progress Note REPORT#:[id number] REPORT STATUS: Signed REPORT INITIALIZATION DATE:04/23/24 TIME:2350 PATIENT: ELVIS FREEMAN UNIT #: [id number] ROOM/BED: [place] [id number] : 61 AGE: 64 SEX: F ATTEND: Mushtaq Mayorga MD ADM AUTHOR: Jeramie Forrest MD REPT SERVICE DT/TIME: 04/23/242350 * ALL edits or amendments must be made on the electronic/computer document * Subjective HPI: 63-year-old female presenting today with a chief complaint of shortness of breath and abdominal distention. EMS was called. They found her in A-fib with a heart rate of 180. She was also hypoxic to 79%, hypotensive with a blood pressure of 89/45. They gave her Cardizem with slight improvement in rate to 140s. She remained hypotensive. They called for verbal orders and I recommended that she be placed on CPAP and given 100 cc bolus if needed after that she could be given Levophed. She received 100 cc bolus and placed on CPAP. She is a ESRD patient on Tuesday dialysis still making urine. She went to her last session and had a full session. She reports that today she was having difficulty breathing and felt that her abdomen was distended. She also has some chest heaviness as well as palpitations. She called EMS for that. She denies any fevers, chills, nausea, vomiting, abdominal pain, diarrhea, constipation, dysuria, flank pain, rash. Reports lower extremity edema. Additionally patient reports that she was recently discharged about a week ago from [facility]. She had been there for 3 weeks under treatment for same reasons. Free Text Subj Notes Free Text Subj Notes: Patient examined at bedside. Her shortness of breath is significantly improved. She is now on room air. Objective General VS/I O: 24 hour I O ending at 0700: 04/23 0700 04/22 1900 Intake Total 350 500 Output Total 200 10 Balance 150 490 Intake, Oral 350 500 Number Voids 2 1 Output, Urine 200 10 Vital Signs: Date Time Temp Pulse Resp B/P B/P Pulse O2 O2 Flow FiO2 Mean Ox Delivery Rate 04/238 98.2 04/23 2045 78 22 141/66 95 97 04/23 2030 79 21 143/66 92 96 04/23 2015 80 24 135/69 95 96 04/23 2000 99 Room air 21 04/23 2000 79 20 123/58 84 100 04/23 1945 79 20 110/54 77 100 04/23 1938 97.3 04/23 1930 79 20 119/57 82 100 04/23 1915 77 20 117/59 85 100 04/23 1900 78 18 116/56 80 99 04/23 1800 78 21 144/66 93 98 04/23 1700 82 22 119/59 80 99 04/23 1642 79 21 128/96 108 97 04/23 1616 98.2 04/23 1600 98.2 100 Room air 04/23 1400 67 20 100 04/23 1300 66 18 99/54 72 100 04/23 1245 98.3 64 18 104/56 100 Room air 04/23 1216 98.3 04/23 1200 62 23 120/69 90 97 04/23 1100 69 19 107/62 79 100 04/23 1044 97.8 04/23 1000 68 19 131/60 85 100 04/23 0940 98.2 72 17 112/60 100 Room air 04/23 0900 71 20 127/71 91 97 04/23 0800 Nasal 3 cannula 04/23 0800 98.2 18 100 Room air 04/23 0800 68 18 131/63 90 95 04/23 0800 98.3 100 Nasal 3 cannula 04/23 0715 91 Room air 21 04/23 0500 69 19 150/66 95 100 04/23 0400 72 22 134/63 90 100 04/23 0333 97.9 04/23 0300 72 20 122/58 81 95 04/23 0200 69 19 123/56 81 99 04/23 0100 70 20 123/58 84 100 04/23 0015 70 100 35 04/23 0001 72 32 149/67 96 100 04/22 2359 98.4 PATIENT WEIGHT: Weight (lb): 177 Weight (oz): 6.39 Weight (kg): 80.467 Medications: Active Meds + DC'd Last 24 Hrs Cefdinir (OMNICEF) 300 MG Q12HR PO Azithromycin (ZITHROMAX) 500 MG DAILY PO Heparin Sodium/Dextrose (HEPARIN 25,000 UNITS/250ML) 250 ML ASDIR IV ( CKD) Heparin Sodium/Dextrose (HEPARIN 25,000 UNITS/250ML) 250 ML ASDIR IV (DC ) Sodium Chloride (0.9% Sodium Chloride) 2,000 ML .Q24H PRN IV Insulin Human Lispro (Admelog) 0 AC HS SUBQ Amiodarone HCl (CORDARONE) 400 MG BID PO (CKD) Insulin Glargine (Lantus/Semglee) 10 UNIT BEDTIME SUBQ Ropinirole HCl (REQUIP) 0.5 MG BEDTIME PO Atorvastatin Calcium (LIPITOR) 40 MG BEDTIME PO Heparin Sodium (Porcine) (HEPARIN SODIUM) ENTER DOSE ASDIR PRN IV Heparin Sodium/Dextrose (HEPARIN 25,000 UNITS/250ML) 250 ML ASDIR IV (DC ) Azithromycin (ZITHROMAX) 500 MG DAILY PO (DC) Clopidogrel Bisulfate (Plavix) 75 MG DAILY PO Ezetimibe (ZETIA) 10 MG DAILY PO Furosemide (LASIX) 60 MG BID 9A 5P IV Polyethylene Glycol (MIRALAX) 17 GM DAILY PO Dextrose (GLUCOSE) 4 GM ASDIR PRN PO Dextrose/Water (DEXTROSE 10% IN WATER 250 ML) 250 ML ASDIR IV Glucagon (GLUCAGON) 1 MG ASDIR PRN IM Gabapentin (NEURONTIN) 200 MG BID PO Melatonin (Melatonin) 5 MG BEDTIME PO Bisacodyl (DULCOLAX) 10 MG DAILY PRN PRN RECTAL Heparin Sodium (HEPARIN SODIUM) 3,600 UNITS ASDIR PRN IV Albumin Human (ALBUMINAR-25% 12.5 GM/50 ML) 25 GM BOLUS PRN IV Mannitol (MANNITOL 25%) 12.5 GM BOLUS PRN IV Norepinephrine Bitartrate (Levophed 16 MG/250 ML NS) 250 ML X1ED STA IV Free Text Obj Notes Free Text Obj Notes: GENERAL: Well developed, comfortable, in no distress HEENT: Normocephalic, atraumatic NECK: JVP not raised, no carotid bruit CHEST: Normal shape and contour LUNGS: Equal air entry bilaterally, normal vesicular breathing HEART: regular rate, normal S1 and S2, No murmurs, rubs or gallops ABDOMEN: Soft, lax, non-tender, non-distended PERIPHERAL PULSES: 2+ dorsalis pedis pulses EXTREMITIES: No edema, no clubbing or cyanosis NEUROLOGIC: no gross motor or sensory deficits Diagnosis, Assessment Plan Free Text DxA P Notes Free Text DxA P Notes: Acute on chronic HFpEF Atrial fibrillation with rapid ventricular CAD Pericardial effusion Anasarca End-stage renal disease on hemodialysis Patient is significantly improved. She is currently saturating on room air. She is currently on oral amiodarone. Her follow-up echocardiogram has shown improved pericardial effusion. She is currently on Plavix. Would recommend on discharge patient should be sent on Eliquis and Plavix. I think due to her history of CAD and atrial fibrillation she would likely benefit from watchman evaluation in the outpatient setting if she has any bleeding issues. Continue on high-dose statin. On discharge send on amiodarone 200 mg once daily. Patient should be on Lasix on nondialysis days to see if still make small amount of urine. I have personally provided patient with information for outpatient follow-up in clinic. We can further adjust medications in that setting. Cardiology will sign off. Please call with any questions. at [phone] RPT #: [id number] END OF REPORT [facility] 2024-04-23 13:47:00 [facility] ([facility]) Hospitalist Progress Note REPORT#:[id number] REPORT STATUS: Signed REPORT INITIALIZATION DATE:04/23/24 TIME:1346 PATIENT: ELVIS FREEMAN UNIT #: [id number] ROOM/BED: [place] [id number] : 62 AGE: 64 SEX: F ATTEND: Mushtaq Mayorga MD ADM AUTHOR: Mushtaq Mayorga MD REPT SERVICE DT/TIME: 04/23/24 1347 * ALL edits or amendments must be made on the electronic/computer document * Subjective Chief complaint: Sudden onset shortness of breath HPI: This is a 63-year-old female presenting today with a chief complaint of shortness of breath and abdominal distention. EMS was called. They found her in A-fib with a heart rate of 180. She was also hypoxic to 79%, hypotensive with a blood pressure of 89/45. They gave her Cardizem with slight improvement in rate to 140s. She remained hypotensive. They called for verbal orders and I recommended that she be placed on CPAP and given 100 cc bolus if needed after that she could be given Levophed. She received 100 cc bolus and placed on CPAP. She is a ESRD patient on Tuesday dialysis still making urine. She went to her last session and had a full session. She reports that today she was having difficulty breathing and felt that her abdomen was distended. She also has some chest heaviness as well as palpitations. She called EMS for that. She denies any fevers, chills, nausea, vomiting, abdominal pain, diarrhea, constipation, dysuria, flank pain, rash. Reports lower extremity edema. Additionally patient reports that she was recently discharged about a week ago from [facility]. She had been there for 3 weeks under treatment for same reasons. She will had a possible ablation done to the heart. Patient has a hospital monitor. Review of Systems Free Text ROS Notes Free Text ROS Notes: Patient reports shortness of breath, chest pressure, palpitations, edema and abdominal distention. Denies nausea, vomiting, abdominal pain, dizziness and syncope. Objective General VS/I O: Vital Signs: Date Time Temp Pulse Resp B/P B/P Pulse O2 O2 Flow FiO2 Mean Ox Delivery Rate 04/23 1216 36.8 04/23 1044 36.6 04/23 0940 36.8 72 17 112/60 100 Room air 04/23 0800 Nasal 3 cannula 04/23 0800 36.8 18 100 Room air 04/23 0800 36.8 100 Nasal 3 cannula 04/23 0715 91 Room air 21 04/23 0500 69 19 150/66 95 100 04/23 0400 72 22 134/63 90 100 04/23 0333 36.6 04/23 0300 72 20 122/58 81 95 04/23 0200 69 19 123/56 81 99 04/23 0100 70 20 123/58 84 100 04/23 0015 70 100 35 04/23 0001 72 32 149/67 96 100 04/22 2359 36.9 04/22 2309 73 23 121/56 79 100 04/22 2200 75 152/66 95 98 04/22 2100 76 19 136/61 88 97 04/22 2003 99 Nasal 2 28 cannula 04/22 2000 Nasal 2 cannula 04/22 2000 77 20 130/73 89 100 04/22 1950 36.9 04/22 1921 77 22 147/65 94 100 04/22 1801 75 32 187/85 122 100 04/22 1700 77 22 140/64 92 99 04/22 1625 36.7 04/22 1600 66 30 177/83 119 100 04/22 1500 68 22 156/75 108 97 04/22 1401 71 22 139/70 97 100 24 hour I O ending at 0700: 04/23 0700 04/22 1900 Intake Total 350 500 Output Total 200 10 Balance 150 490 Intake, Oral 350 500 Number Voids 2 1 Output, Urine 200 10 PATIENT WEIGHT: Weight (lb): 177 Weight (oz): 6.39 Weight (kg): 80.467 Medications: Active Meds + DC'd Last 24 Hrs Heparin Sodium/Dextrose (HEPARIN 25,000 UNITS/250ML) 250 ML ASDIR IV ( CKD) Heparin Sodium/Dextrose (HEPARIN 25,000 UNITS/250ML) 250 ML ASDIR IV (DC ) Sodium Chloride (0.9% Sodium Chloride) 2,000 ML .Q24H PRN IV Insulin Human Lispro (Admelog) 0 AC HS SUBQ Amiodarone HCl (CORDARONE) 400 MG BID PO (CKD) Insulin Glargine (Lantus/Semglee) 10 UNIT BEDTIME SUBQ Ropinirole HCl (REQUIP) 0.5 MG BEDTIME PO Atorvastatin Calcium (LIPITOR) 40 MG BEDTIME PO Heparin Sodium (Porcine) (HEPARIN SODIUM) ENTER DOSE ASDIR PRN IV Heparin Sodium/Dextrose (HEPARIN 25,000 UNITS/250ML) 250 ML ASDIR IV (DC ) Azithromycin (ZITHROMAX) 500 MG DAILY PO (DC) Clopidogrel Bisulfate (Plavix) 75 MG DAILY PO Ezetimibe (ZETIA) 10 MG DAILY PO Furosemide (LASIX) 60 MG BID 9A 5P IV Polyethylene Glycol (MIRALAX) 17 GM DAILY PO Dextrose (GLUCOSE) 4 GM ASDIR PRN PO Dextrose/Water (DEXTROSE 10% IN WATER 250 ML) 250 ML ASDIR IV Glucagon (GLUCAGON) 1 MG ASDIR PRN IM Gabapentin (NEURONTIN) 200 MG BID PO Melatonin (Melatonin) 5 MG BEDTIME PO Bisacodyl (DULCOLAX) 10 MG DAILY PRN PRN RECTAL Heparin Sodium (HEPARIN SODIUM) 3,600 UNITS ASDIR PRN IV Perflutren Lipid Microsphere (DEFINITY) 2 ML ONCE PRN IV (DC) Albumin Human (ALBUMINAR-25% 12.5 GM/50 ML) 25 GM BOLUS PRN IV Mannitol (MANNITOL 25%) 12.5 GM BOLUS PRN IV Norepinephrine Bitartrate (Levophed 16 MG/250 ML NS) 250 ML X1ED STA IV Dietitian nutrition assessment The data set between the solid lines has been imported from the dietitian's assessment. BMI Calculated: 32.4 Nutrition related diagnosis: Nutrition diagnosis details: Nutrition problem: Nutrition etiology: Nutrition signs and symptoms: Nutrition prescription: Dietitian name: Assessment completed: Free Text Obj Notes Free Text Obj Notes: HEENT: Atraumatic CVS: S1-S2 audible Resp: Bilateral Rales Abdomen: Protuberant Extremities: Bilateral lower extremity pitting edema 3+ Neuro: AAO x 3, no focal deficits, moving all extremities Diagnosis, Assessment Plan Problem List/A P: 1. Atrial fibrillation with rapid ventricular response 2. Hypotension 3. Shortness of breath 4. Abdominal distention 5. Volume overload 6. Pulmonary edema 7. Pericardial effusion 8. NSTEMI (non-ST elevated myocardial infarction) 9. Community acquired pneumonia Free Text DxA P Notes Free text DxA P notes: IMCU status Continue telemetry monitoring Continue oral Amio Resume clopidogrel Resume gabapentin Resume ezetimibe Cont Heparin drip Mycoplasma IgM pending Follow blood cultures Follow sputum culture ID consulted will appreciate input Continue IV antibiotics Vanc stopped MRSA screen neg Nephrology consultation Cardiology consultation appreciated Limited echo reviewed Continue cefepime add azithromycin Follow cultures Echo limited to be reviewed Continue amnio drip Start clopidogrel Continue home meds if no contraindications Full code Renal diet Out of bed to chair O2 by nasal cannula 2 L titrate off Patient may need Pulm as outpatient for Sleep Study at 1350 RPT #: [id number] END OF REPORT [facility]2024-11-25 [facility]11:38 [id number] [place] 866674-11-25 09:59:00 [facility] ([facility]) Nephrology Progress Note REPORT#:[id number] REPORT STATUS: Signed REPORT INITIALIZATION DATE:04/23/24 TIME:958 PATIENT: ELVIS FREEMAN UNIT #: [id number] ROOM/BED: [place] [id number] : 61 AGE: 64 SEX: F ATTEND: Mushtaq Mayorga MD ADM AUTHOR: Anson Duncan MD REPT SERVICE DT/TIME: 04/23/24 0959 * ALL edits or amendments must be made on the electronic/computer document * Subjective HPI: 63-year-old female with history of ESRD on hemodialysis, brought to the hospital with shortness of breath and abdominal distention. Patient is ESRD on hemodialysis, hemodialysis on Tuesday and Tuesday. Last dialysis on Tuesday. Patient today did not feel well, she complained of shortness of breath and abdominal distention. EMS was called. Patient found to have A-fib with RVR, hypotension. Labs reviewed. Chest x-ray reviewed. Renal consulted for inpatient dialysis. Comments: Shortness of breath on exertion. Review of Systems Free Text ROS Notes Free Text ROS Notes: 10 point review of system performed and documented in subjective, otherwise negative. Objective General VS/I O: Vital Signs: Date Time Temp Pulse Resp B/P B/P Pulse O2 O2 Flow FiO2 Mean Ox Delivery Rate 04/23 1616 36.8 04/23 1245 36.8 64 18 104/56 100 Room air 04/23 1216 36.8 04/23 1044 36.6 04/23 0940 36.8 72 17 112/60 100 Room air 04/23 0800 Nasal 3 cannula 04/23 0800 36.8 18 100 Room air 04/23 0800 36.8 100 Nasal 3 cannula 04/23 0715 91 Room air 21 04/23 0500 69 19 150/66 95 100 04/23 0400 72 22 134/63 90 100 04/23 0333 36.6 04/23 0300 72 20 122/58 81 95 04/23 0200 69 19 123/56 81 99 04/23 0100 70 20 123/58 84 100 04/23 0015 70 100 35 04/23 0001 72 32 149/67 96 100 04/22 2359 36.9 04/22 2309 73 23 121/56 79 100 04/22 2200 75 152/66 95 98 04/22 2100 76 19 136/61 88 97 04/22 2003 99 Nasal 2 28 cannula 04/22 2000 Nasal 2 cannula 04/22 2000 77 20 130/73 89 100 04/22 1950 36.9 04/22 1921 77 22 147/65 94 100 04/22 1801 75 32 187/85 122 100 04/22 1700 77 22 140/64 92 99 04/22 1625 36.7 24 hour I O ending at 0700: 04/23 0700 04/22 1900 Intake Total 350 500 Output Total 200 10 Balance 150 490 Intake, Oral 350 500 Number Voids 2 1 Output, Urine 200 10 Medications Active Meds + DC'd Last 24 Hrs Heparin Sodium/Dextrose (HEPARIN 25,000 UNITS/250ML) 250 ML ASDIR IV ( CKD) Heparin Sodium/Dextrose (HEPARIN 25,000 UNITS/250ML) 250 ML ASDIR IV (DC ) Sodium Chloride (0.9% Sodium Chloride) 2,000 ML .Q24H PRN IV Insulin Human Lispro (Admelog) 0 AC HS SUBQ Amiodarone HCl (CORDARONE) 400 MG BID PO (CKD) Insulin Glargine (Lantus/Semglee) 10 UNIT BEDTIME SUBQ Ropinirole HCl (REQUIP) 0.5 MG BEDTIME PO Atorvastatin Calcium (LIPITOR) 40 MG BEDTIME PO Heparin Sodium (Porcine) (HEPARIN SODIUM) ENTER DOSE ASDIR PRN IV Heparin Sodium/Dextrose (HEPARIN 25,000 UNITS/250ML) 250 ML ASDIR IV (DC ) Azithromycin (ZITHROMAX) 500 MG DAILY PO (DC) Clopidogrel Bisulfate (Plavix) 75 MG DAILY PO Ezetimibe (ZETIA) 10 MG DAILY PO Furosemide (LASIX) 60 MG BID 9A 5P IV Polyethylene Glycol (MIRALAX) 17 GM DAILY PO Dextrose (GLUCOSE) 4 GM ASDIR PRN PO Dextrose/Water (DEXTROSE 10% IN WATER 250 ML) 250 ML ASDIR IV Glucagon (GLUCAGON) 1 MG ASDIR PRN IM Gabapentin (NEURONTIN) 200 MG BID PO Melatonin (Melatonin) 5 MG BEDTIME PO Bisacodyl (DULCOLAX) 10 MG DAILY PRN PRN RECTAL Heparin Sodium (HEPARIN SODIUM) 3,600 UNITS ASDIR PRN IV Perflutren Lipid Microsphere (DEFINITY) 2 ML ONCE PRN IV (DC) Albumin Human (ALBUMINAR-25% 12.5 GM/50 ML) 25 GM BOLUS PRN IV Mannitol (MANNITOL 25%) 12.5 GM BOLUS PRN IV Norepinephrine Bitartrate (Levophed 16 MG/250 ML NS) 250 ML X1ED STA IV Physical Exam General appearance: awake Head/eyes: normocephalic ENT: normal nose Neck: no JVD C-Spine clearance: no midline tenderness Cardiovascular: normal heart sounds Respiratory: clear to auscultation Abdomen: soft Genitourinary: no bladder distention Extremities: no edema Musculoskeletal: no tendereness Neuro/EMBOSSING TOOLSETTER: alert, oriented X 3 Results Findings/Data: Laboratory Tests 04/23 04/23 04/22 04/22 1141 0817 2103 1625 Chemistry POC Glucose (70 - 110 mg/dL) 184 H 164 H 309 H 289 H Laboratory Tests 04/23 0535 Coagulation PTT ([place]) (26 - 35 SECONDS) 51.1 H Laboratory Tests 04/23 0535 Hematology WBC (3.5 - 11.0 K/mm3) 10.4 RBC (4.70 - 6.10 M/mm3) 3.16 L Hgb (10.4 - 14.9 G/DL) 7.8 L Hct (31.5 - 44.1 %) 26.6 L MCV (84.5 - 98.6 Fl) 84.2 L MCH (27.0 - 34.2 pg) 24.7 L MCHC (31.5 - 34.0 G/DL) 29.3 L RDW (11.5 - 14.5 SD) 16.4 H Plt Count (150 - 450 K/mm3) 365 MPV (7.0 - 10.5 fL) 10.60 H Neut % (Auto) (40 - 76 %) 65.2 Lymph % (Auto) (20.5 - 51.1 %) 19.5 L Woodson % (Auto) (1.7 - 9.3 %) 12.1 H Eos % (Auto) (0.0 - 6.0 %) 1.9 Baso % (Auto) (0.0 - 2.0 %) 1.0 Neut # (Auto) (1.8 - 7.6 K/mm3) 6.8 Lymph # (Auto) (0.6 - 3.2 K/mm3) 2.0 Woodson # (Auto) (0.3 - 1.1 K/mm3) 1.3 H Eos # (Auto) (0.0 - 0.4 K/mm3) 0.2 Baso # (Auto) (0.0 - 0.1 K/mm3) 0.1 Abs Immat Gran (auto) (0.00 - 0.03 x10 3/uL) 0.03 Immature Gran % (0.0 - 5.0 %) 0.3 Nucleated RBC % (0.0 - 1.0 /100WBC%) 0.0 Diagnosis, Assessment Plan Free Text A P: 1. ESRD on hemodialysis Hemodialysis on Tuesday and Tuesday. 2. Hyponatremia. 3. Fluid overload. 4. Chronic anemia. 5. A-fib with RVR. 6. Elevated troponin. Recommendations: 04/23: Lower extremity swelling. Hypervolemic. Hemodialysis today. Target fluid removal 2 L. 04/22: No need for HD today. 04/21: Remains Hypervoelmic. HD today, targer 3L. 04/20: Hypervolemic. HD today. 04/19: Hemodialysis today. Target for removal 2 to 3 L. Renal restriction diet once patient is able to tolerate p.o. Limit fluid to 1 L a day. Avoid NSAID. Status adjustment to GFR. Epogen subcutaneous. Check phosphorus, adjust phosphorus binders. Thank you for consultation, any question please call [phone] at [phone] RPT #: [id number] END OF REPORT [id number] 21:29:[id number] [facility] [id number] [place] [id number] PATIENT NAME: ELVIS FREEMAN ADMIT DATE: 04/19/24 ACCOUNT NO: [id number] ROOM NO: [facility] AGE: 64 REPORT TYPE: eECHOCARDIOGRAM REPORT SEX: F ADMITTING PHYSICIAN: Mushtaq Mayorga MD ATTENDING PHYSICIAN: Mushtaq Mayorga MD *[facility]* [address] [place] [id number] Limited Transthoracic Echocardiogram Patient: Elvis Freeman Study Date: 04/22/2024 BP: 131 / 59 URN: [id number] Location: : 1960 Age: 64 Gender: F Height: 61.8 in / 157 cm Weight: 177 lb / 80.3 kg BMI/BSA: 32.6 kg/m 2 / 1.9 m 2 *Ordering Physician: * Jeramie Forrest MD *Interpreting Physician: * Jeramie Forrest MD *Environmental Sampling Technician: * Lakeisha Reyes Indications: Pericardial effusion. Study data: Transthoracic echocardiogram, limited study. Procedure: A transthoracic echocardiogram was performed. Image quality was adequate. Limited 2D and limited spectral Doppler. Location: Bedside. Patient status: Inpatient. Patient room number: 310. Study status: Routine. Heart rate: 70 bpm. Findings Pericardium: A small to moderate pericardial effusion is identified. There is a moderate-sized left pleural effusion. PATIENT NAME: ELVIS FREEMAN Conclusions Summary: Pericardium, extracardiac: A small to moderate pericardial effusion is identified. There is a moderate-sized left pleural effusion. Impressions: Effusion appears improved from prior echocardiogram Electronically signed by Jeramie Forrest MD 04/22/2024 21:29 at 2129 PATIENT NAME: ELVIS FREEMAN 14:34:00 [facility] Hospitalist Progress Note REPORT#:[id number] REPORT STATUS: Signed REPORT INITIALIZATION DATE:04/22/24 TIME:1433 PATIENT: ELVIS FREEMAN UNIT #: [id number] ROOM/BED: [place] [address] : 62 AGE: 64 SEX: F ATTEND: Mushtaq Mayorga MD ADM AUTHOR: Mushtaq Mayorga MD REPT SERVICE DT/TIME: 04/22/24 1434 * ALL edits or amendments must be made on the electronic/computer document * Subjective Chief complaint: Sudden onset shortness of breath HPI: This is a 63-year-old female presenting today with a chief complaint of shortness of breath and abdominal distention. EMS was called. They found her in A-fib with a heart rate of 180. She was also hypoxic to 79%, hypotensive with a blood pressure of 89/45. They gave her Cardizem with slight improvement in rate to 140s. She remained hypotensive. They called for verbal orders and I recommended that she be placed on CPAP and given 100 cc bolus if needed after that she could be given Levophed. She received 100 cc bolus and placed on CPAP. She is a ESRD patient on Tuesday dialysis still making urine. She went to her last session and had a full session. She reports that today she was having difficulty breathing and felt that her abdomen was distended. She also has some chest heaviness as well as palpitations. She called EMS for that. She denies any fevers, chills, nausea, vomiting, abdominal pain, diarrhea, constipation, dysuria, flank pain, rash. Reports lower extremity edema. Additionally patient reports that she was recently discharged about a week ago from [facility]. She had been there for 3 weeks under treatment for same reasons. She will had a possible ablation done to the heart. Patient has a hospital monitor. Review of Systems Free Text ROS Notes Free Text ROS Notes: Patient reports shortness of breath, chest pressure, palpitations, edema and abdominal distention. Denies nausea, vomiting, abdominal pain, dizziness and syncope. Objective General VS/I O: Vital Signs: Date Time Temp Pulse Resp B/P B/P Pulse O2 O2 Flow FiO2 Mean Ox Delivery Rate 04/22 1625 36.7 04/22 1207 36.5 04/22 1200 66 15 131/59 85 99 04/22 1117 67 31 129/67 91 100 04/22 1000 66 22 121/84 99 100 04/22 0900 69 19 125/58 83 99 04/22 0849 99 Nasal 2 28 cannula 04/22 0800 36.2 04/22 0800 Nasal 2 cannula 04/22 0701 62 17 145/75 104 100 04/22 0601 66 20 115/64 80 99 04/22 0501 64 19 123/59 82 99 04/22 0400 66 28 134/68 95 100 04/22 0314 36.5 04/22 0300 65 15 119/62 85 99 04/22 0201 65 20 111/55 79 94 04/22 0130 66 100 35 04/22 0100 68 22 123/62 87 98 04/22 0001 62 16 132/66 93 100 04/21 2338 64 100 35 04/21 2318 36.9 04/21 2301 67 28 103/53 77 94 04/21 2200 66 24 128/85 103 100 04/21 2100 64 29 122/69 90 100 04/21 2030 100 Nasal 3 32 cannula 04/21 2001 36.8 04/21 2000 BiPAP 04/21 2000 69 34 150/74 105 100 04/21 1922 75 21 146/77 105 04/21 1800 74 20 147/67 96 100 24 hour I O ending at 0700: 04/22 0700 04/21 1900 Intake Total 350 Output Total 3500 Balance -3150 Intake, Oral 350 Number 3 Bowel Movements Output, 3500 Hemodialysis Patient 80.467 kg Weight Weight Bed scale Measurement Method PATIENT WEIGHT: Weight (lb): 177 Weight (oz): 6.39 Weight (kg): 80.467 Medications: Active Meds + DC'd Last 24 Hrs Insulin Human Lispro (Admelog) 0 AC HS SUBQ (CAN) Insulin Human Lispro (Admelog) 0 AC HS SUBQ Amiodarone HCl (CORDARONE) 400 MG BID PO (CKD) Insulin Glargine (Lantus/Semglee) 10 UNIT BEDTIME SUBQ Ropinirole HCl (REQUIP) 0.5 MG BEDTIME PO Sodium Chloride (0.9% Sodium Chloride) 2,000 ML .Q24H PRN IV (DC) Atorvastatin Calcium (LIPITOR) 40 MG BEDTIME PO Heparin Sodium (Porcine) (HEPARIN SODIUM) ENTER DOSE ASDIR PRN IV Heparin Sodium/Dextrose (HEPARIN 25,000 UNITS/250ML) 250 ML ASDIR IV ( CKD) Azithromycin (ZITHROMAX) 500 MG DAILY PO Clopidogrel Bisulfate (Plavix) 75 MG DAILY PO Ezetimibe (ZETIA) 10 MG DAILY PO Furosemide (LASIX) 60 MG BID 9A 5P IV Polyethylene Glycol (MIRALAX) 17 GM DAILY PO Dextrose (GLUCOSE) 4 GM ASDIR PRN PO Dextrose/Water (DEXTROSE 10% IN WATER 250 ML) 250 ML ASDIR IV Glucagon (GLUCAGON) 1 MG ASDIR PRN IM Amiodarone HCl (Nexterone 360 MG/200 Ml Bag) 200 ML ASDIR IV (DC) Gabapentin (NEURONTIN) 200 MG BID PO Insulin Human Lispro (Admelog) 0 AC HS SUBQ (DC) Melatonin (Melatonin) 5 MG BEDTIME PO Bisacodyl (DULCOLAX) 10 MG DAILY PRN PRN RECTAL Heparin Sodium (HEPARIN SODIUM) 3,600 UNITS ASDIR PRN IV Perflutren Lipid Microsphere (DEFINITY) 2 ML ONCE PRN IV (DC) Albumin Human (ALBUMINAR-25% 12.5 GM/50 ML) 25 GM BOLUS PRN IV Mannitol (MANNITOL 25%) 12.5 GM BOLUS PRN IV Norepinephrine Bitartrate (Levophed 16 MG/250 ML NS) 250 ML X1ED STA IV Dietitian nutrition assessment The data set between the solid lines has been imported from the dietitian's assessment. BMI Calculated: 32.4 Nutrition related diagnosis: Nutrition diagnosis details: Nutrition problem: Nutrition etiology: Nutrition signs and symptoms: Nutrition prescription: Dietitian name: Assessment completed: Free Text Obj Notes Free Text Obj Notes: VICENTE: Atraumatic CVS: S1-S2 audible Resp: Bilateral Rales Abdomen: Protuberant Extremities: Bilateral lower extremity pitting edema 3+ Neuro: AAO x 3, no focal deficits, moving all extremities Diagnosis, Assessment Plan Free Text DxA P Notes Free text DxA P notes: #Acute onset shortness of breath likely secondary to fluid overload rule out ACS versus pneumonia #ESRD on hemodialysis #Restless leg syndrome #Chest pressure rule out ACS #Past medical history of CAD recent cath? #Past medical history A-fib with RVR status post ablation #Anasarca IMCU status Continue telemetry monitoring start on amio oral today Resume clopidogrel Resume gabapentin Resume ezetimibe Cont Heparin drip Send pneumonia workup Send blood culture Send sputum culture Continue IV antibiotics Vanc stopped MRSA screen neg Nephrology consultation Cardiology consultation appreciated Limited echo today rend troponin Continue cefepime add azithromycin Follow cultures Echo limited to be reviewed Continue amnio drip Start clopidogrel Continue home meds if no contraindications Full code Renal diet Out of bed to chair O2 by nasal cannula 2 L titrate off Patient may need Pulm as outpatient for Sleep Study at 1742 RPT #: [id number] END OF REPORT [id number] 12:15:00 [facility] ([facility]) Cardiology Progress Note REPORT#:[id number] REPORT STATUS: Signed REPORT INITIALIZATION DATE:04/22/24 TIME:1214 PATIENT: ELVIS FREEMAN UNIT #: [id number] ROOM/BED: [place] [address] : 62 AGE: 64 SEX: F ATTEND: Mushtaq Mayorga MD ADM AUTHOR: Jeramie Forrest MD REPT SERVICE DT/TIME: 04/22/24 1215 * ALL edits or amendments must be made on the electronic/computer document * Subjective HPI: 63-year-old female presenting today with a chief complaint of shortness of breath and abdominal distention. EMS was called. They found her in A-fib with a heart rate of 180. She was also hypoxic to 79%, hypotensive with a blood pressure of 89/45. They gave her Cardizem with slight improvement in rate to 140s. She remained hypotensive. They called for verbal orders and I recommended that she be placed on CPAP and given 100 cc bolus if needed after that she could be given Levophed. She received 100 cc bolus and placed on CPAP. She is a ESRD patient on Tuesday dialysis still making urine. She went to her last session and had a full session. She reports that today she was having difficulty breathing and felt that her abdomen was distended. She also has some chest heaviness as well as palpitations. She called EMS for that. She denies any fevers, chills, nausea, vomiting, abdominal pain, diarrhea, constipation, dysuria, flank pain, rash. Reports lower extremity edema. Additionally patient reports that she was recently discharged about a week ago from [facility]. She had been there for 3 weeks under treatment for same reasons. Free Text Subj Notes Free Text Subj Notes: Patient examined at bedside. Her oxygen requirement significantly improved. Discussed the results of the limited echo with Objective General VS/I O: 24 hour I O ending at 0700: 04/22 0700 04/21 1900 Intake Total 350 Output Total 3500 Balance -3150 Intake, Oral 350 Number 3 Bowel Movements Output, 3500 Hemodialysis Patient 80.467 kg Weight Weight Bed scale Measurement Method Vital Signs: Date Time Temp Pulse Resp B/P B/P Pulse O2 O2 Flow FiO2 Mean Ox Delivery Rate 04/22 1207 97.7 04/22 1117 67 31 129/67 91 100 04/22 1000 66 22 121/84 99 100 04/22 0900 69 19 125/58 83 99 04/22 0849 99 Nasal 2 28 cannula 04/22 0800 97.2 04/22 0701 62 17 145/75 104 100 04/22 0601 66 20 115/64 80 99 04/22 0501 64 19 123/59 82 99 04/22 0400 66 28 134/68 95 100 04/22 0314 97.7 04/22 0300 65 15 119/62 85 99 04/22 0201 65 20 111/55 79 94 04/22 0130 66 100 35 04/22 0100 68 22 123/62 87 98 04/22 0001 62 16 132/66 93 100 04/21 2338 64 100 35 04/21 2318 98.4 04/21 2301 67 28 103/53 77 94 04/21 2200 66 24 128/85 103 100 04/21 2100 64 29 122/69 90 100 04/21 2030 100 Nasal 3 32 cannula 04/21 2001 98.2 04/21 2000 BiPAP 04/21 2000 69 34 150/74 105 100 04/21 1922 75 21 146/77 105 04/21 1800 74 20 147/67 96 100 04/21 1700 80 25 123/95 105 100 04/21 1657 97.9 04/21 1600 79 25 120/59 83 98 04/21 1500 75 22 127/58 84 98 04/21 1400 80 20 114/58 83 82 04/21 1316 79 22 154/65 94 04/21 1227 98.6 75 25 139/57 100 Room air PATIENT WEIGHT: Weight (lb): 177 Weight (oz): 6.39 Weight (kg): 80.467 Medications: Active Meds + DC'd Last 24 Hrs Insulin Glargine (Lantus/Semglee) 10 UNIT BEDTIME SUBQ Ropinirole HCl (REQUIP) 0.5 MG BEDTIME PO Sodium Chloride (0.9% Sodium Chloride) 2,000 ML .Q24H PRN IV (DC) Atorvastatin Calcium (LIPITOR) 40 MG BEDTIME PO Heparin Sodium (Porcine) (HEPARIN SODIUM) ENTER DOSE ASDIR PRN IV Heparin Sodium/Dextrose (HEPARIN 25,000 UNITS/250ML) 250 ML ASDIR IV ( CKD) Azithromycin (ZITHROMAX) 500 MG DAILY PO Clopidogrel Bisulfate (Plavix) 75 MG DAILY PO Ezetimibe (ZETIA) 10 MG DAILY PO Furosemide (LASIX) 60 MG BID 9A 5P IV Polyethylene Glycol (MIRALAX) 17 GM DAILY PO Dextrose (GLUCOSE) 4 GM ASDIR PRN PO Dextrose/Water (DEXTROSE 10% IN WATER 250 ML) 250 ML ASDIR IV Glucagon (GLUCAGON) 1 MG ASDIR PRN IM Amiodarone HCl (Nexterone 360 MG/200 Ml Bag) 200 ML ASDIR IV (CKD) Gabapentin (NEURONTIN) 200 MG BID PO Insulin Human Lispro (Admelog) 0 AC HS SUBQ Melatonin (Melatonin) 5 MG BEDTIME PO Bisacodyl (DULCOLAX) 10 MG DAILY PRN PRN RECTAL Heparin Sodium (HEPARIN SODIUM) 3,600 UNITS ASDIR PRN IV Perflutren Lipid Microsphere (DEFINITY) 2 ML ONCE PRN IV (CKD) Albumin Human (ALBUMINAR-25% 12.5 GM/50 ML) 25 GM BOLUS PRN IV Mannitol (MANNITOL 25%) 12.5 GM BOLUS PRN IV Norepinephrine Bitartrate (Levophed 16 MG/250 ML NS) 250 ML X1ED STA IV Cefepime HCl (MAXIPIME) 1 GM X1ED STA IV (DC) Sodium Chloride (0.9% Sodium Chloride) 50 ML Free Text Obj Notes Free Text Obj Notes: GENERAL: Well developed, comfortable, in no distress HEENT: Normocephalic, atraumatic NECK: JVP not raised, no carotid bruit CHEST: Normal shape and contour LUNGS: Equal air entry bilaterally, normal vesicular breathing HEART: regular rate, normal S1 and S2 ABDOMEN: Soft, lax, non-tender, non-distended PERIPHERAL PULSES: 2+ dorsalis pedis pulses EXTREMITIES: No edema, no clubbing or cyanosis NEUROLOGIC: no gross motor or sensory deficits Diagnosis, Assessment Plan Free Text DxA P Notes Free Text DxA P Notes: Acute on chronic HFpEF Atrial fibrillation with rapid ventricular CAD Pericardial effusion Anasarca End-stage renal disease on hemodialysis Continue on IV diuresis. Patient still makes some urine. Continue on Plavix. Transition to heparin/Lovenox while inpatient. Continue amiodarone drip for now. Nephrology is following. Check daily weight. Echo reviewed. Will order follow-up echocardiogram. Continue on high-dose statin. Further recommendation on clinical improvement. Xray reviewed Daily weight Monitor I/O Beta blockers Further management as per Echo report and clinical improvement 2024: Patient shortness of breath is slowly improving. Continue diuresis. Continue amiodarone. Will order repeat echo. Continue on carvedilol. 04/22/2024: Patient is breath is improved. Follow-up echo does not show mild improvement in the pericardial effusion. Transition to oral amiodarone. Okay to restart Eliquis from cardiology standpoint. at 1934 RPT #: [id number] END OF REPORT [id number] 11:07:00 [facility] ([facility]) Nephrology Progress Note REPORT#:[id number] REPORT STATUS: Signed REPORT INITIALIZATION DATE:04/22/24 TIME:1107 PATIENT: ELVIS FREEMAN UNIT #: [id number] ROOM/BED: [place] [id number] : 61 AGE: 64 SEX: F ATTEND: Mushtaq Mayorga MD ADM AUTHOR: Anson Duncan MD REPT SERVICE DT/TIME: 04/22/24 1107 * ALL edits or amendments must be made on the electronic/computer document * Subjective HPI: 63-year-old female with history of ESRD on hemodialysis, brought to the hospital with shortness of breath and abdominal distention. Patient is ESRD on hemodialysis, hemodialysis on Tuesday and Tuesday. Last dialysis on Tuesday. Patient today did not feel well, she complained of shortness of breath and abdominal distention. EMS was called. Patient found to have A-fib with RVR, hypotension. Labs reviewed. Chest x-ray reviewed. Renal consulted for inpatient dialysis. Comments: Denies sob Review of Systems Free Text ROS Notes Free Text ROS Notes: 10 points ROS performed and documented in subjective, otherwise negative. Objective General VS/I O: Vital Signs: Date Time Temp Pulse Resp B/P B/P Pulse O2 O2 Flow FiO2 Mean Ox Delivery Rate 04/22 0849 99 Nasal 2 28 cannula 04/22 0800 36.2 04/22 0701 62 17 145/75 104 100 04/22 0601 66 20 115/64 80 99 04/22 0501 64 19 123/59 82 99 04/22 0400 66 28 134/68 95 100 04/22 0314 36.5 04/22 0300 65 15 119/62 85 99 04/22 0201 65 20 111/55 79 94 04/22 0130 66 100 35 04/22 0100 68 22 123/62 87 98 04/22 0001 62 16 132/66 93 100 04/21 2338 64 100 35 04/21 2318 36.9 04/21 2301 67 28 103/53 77 94 04/21 2200 66 24 128/85 103 100 04/21 2100 64 29 122/69 90 100 04/21 2030 100 Nasal 3 32 cannula 04/21 2001 36.8 04/21 2000 BiPAP 04/21 2000 69 34 150/74 105 100 04/21 1922 75 21 146/77 105 04/21 1800 74 20 147/67 96 100 04/21 1700 80 25 123/95 105 100 04/21 1657 36.6 04/21 1600 79 25 120/59 83 98 04/21 1500 75 22 127/58 84 98 04/21 1400 80 20 114/58 83 82 04/21 1316 79 22 154/65 94 04/21 1227 37.0 75 25 139/57 100 Room air 04/21 1200 74 30 130/62 85 04/21 1137 36.4 24 hour I O ending at 0700: 04/22 0700 04/21 1900 Intake Total 350 Output Total 3500 Balance -3150 Intake, Oral 350 Number 3 Bowel Movements Output, 3500 Hemodialysis Patient 80.467 kg Weight Weight Bed scale Measurement Method Medications Active Meds + DC'd Last 24 Hrs Insulin Glargine (Lantus/Semglee) 10 UNIT BEDTIME SUBQ Ropinirole HCl (REQUIP) 0.5 MG BEDTIME PO Sodium Chloride (0.9% Sodium Chloride) 2,000 ML .Q24H PRN IV (DC) Atorvastatin Calcium (LIPITOR) 40 MG BEDTIME PO Heparin Sodium (Porcine) (HEPARIN SODIUM) ENTER DOSE ASDIR PRN IV Heparin Sodium/Dextrose (HEPARIN 25,000 UNITS/250ML) 250 ML ASDIR IV ( CKD) Azithromycin (ZITHROMAX) 500 MG DAILY PO Clopidogrel Bisulfate (Plavix) 75 MG DAILY PO Ezetimibe (ZETIA) 10 MG DAILY PO Furosemide (LASIX) 60 MG BID 9A 5P IV Polyethylene Glycol (MIRALAX) 17 GM DAILY PO Dextrose (GLUCOSE) 4 GM ASDIR PRN PO Dextrose/Water (DEXTROSE 10% IN WATER 250 ML) 250 ML ASDIR IV Glucagon (GLUCAGON) 1 MG ASDIR PRN IM Amiodarone HCl (Nexterone 360 MG/200 Ml Bag) 200 ML ASDIR IV (CKD) Gabapentin (NEURONTIN) 200 MG BID PO Insulin Human Lispro (Admelog) 0 AC HS SUBQ Melatonin (Melatonin) 5 MG BEDTIME PO Bisacodyl (DULCOLAX) 10 MG DAILY PRN PRN RECTAL Heparin Sodium (HEPARIN SODIUM) 3,600 UNITS ASDIR PRN IV Perflutren Lipid Microsphere (DEFINITY) 2 ML ONCE PRN IV (CKD) Albumin Human (ALBUMINAR-25% 12.5 GM/50 ML) 25 GM BOLUS PRN IV Mannitol (MANNITOL 25%) 12.5 GM BOLUS PRN IV Norepinephrine Bitartrate (Levophed 16 MG/250 ML NS) 250 ML X1ED STA IV Cefepime HCl (MAXIPIME) 1 GM X1ED STA IV (DC) Sodium Chloride (0.9% Sodium Chloride) 50 ML Physical Exam General appearance: awake Head/eyes: normocephalic ENT: normal nose Neck: no JVD C-Spine clearance: no midline tenderness Cardiovascular: normal heart sounds Respiratory: clear to auscultation Abdomen: soft Genitourinary: no bladder distention Extremities: no edema Musculoskeletal: no tendereness Neuro/EMBOSSING TOOLSETTER: alert, oriented X 3 Results Findings/Data: Laboratory Tests 04/22 04/22 04/21 04/21 04/21 0800 0500 2102 1657 1135 Chemistry Sodium (136 - 145 mmol/L) 135 L Potassium (3.4 - 5.0 mmol/L) 3.6 Chloride (98 - 107 mmol/L) 98 Carbon Dioxide (21 - 32 mmol/L) 28 Anion Gap (4 - 15 GAP calc) 9 BUN (7 - 18 MG/DL) 14 Creatinine (0.6 - 1.0 MG/DL) 3.3 H Glomerular Filtr Rate (>60 estGFR) 15 L Glucose (70 - 110 MG/DL) 176 H POC Glucose (70 - 110 mg/dL) 179 H 213 H 296 H 183 H Calcium (8.5 - 10.1 MG/DL) 8.3 L Laboratory Tests 04/22 04/21 04/21 0500 2316 1651 Coagulation PTT (Jordy) (26 - 35 SECONDS) 53.3 H 55.6 H 57.8 H Laboratory Tests 04/22 0459 Hematology WBC (3.5 - 11.0 K/mm3) 9.7 RBC (4.70 - 6.10 M/mm3) 3.12 L Hgb (10.4 - 14.9 G/DL) 7.6 L Hct (31.5 - 44.1 %) 26.5 L MCV (84.5 - 98.6 Fl) 84.9 MCH (27.0 - 34.2 pg) 24.4 L MCHC (31.5 - 34.0 G/DL) 28.7 L RDW (11.5 - 14.5 SD) 16.4 H Plt Count (150 - 450 K/mm3) 386 MPV (7.0 - 10.5 fL) 10.50 Neut % (Auto) (40 - 76 %) 65.2 Lymph % (Auto) (20.5 - 51.1 %) 20.4 L Woodson % (Auto) (1.7 - 9.3 %) 10.8 H Eos % (Auto) (0.0 - 6.0 %) 2.0 Baso % (Auto) (0.0 - 2.0 %) 1.3 Neut # (Auto) (1.8 - 7.6 K/mm3) 6.3 Lymph # (Auto) (0.6 - 3.2 K/mm3) 2.0 Woodson # (Auto) (0.3 - 1.1 K/mm3) 1.1 Eos # (Auto) (0.0 - 0.4 K/mm3) 0.2 Baso # (Auto) (0.0 - 0.1 K/mm3) 0.1 Abs Immat Gran (auto) (0.00 - 0.03 x10 3/uL) 0.03 Immature Gran % (0.0 - 5.0 %) 0.3 Nucleated RBC % (0.0 - 1.0 /100WBC%) 0.0 Platelet Estimate (ADEQUATE THOUSAND) ADEQUATE Plt Morphology Comment NORMAL Polychromasia (NONE ON SCAN) TRACE Hypochromasia (NONE ON SCAN) 2+ H Anisocytosis (NONE) 2+ H Microcytosis (NONE ON SCAN) 1+ Macrocytosis (NONE ON SCAN) 2+ H Spherocytes (NONE ON SCAN) TRACE Target Cells (NONE ON SCAN) 2+ H Tear Drop Cells (NONE ON SCAN) 1+ Ovalocytes (NONE ON SCAN) 1+ Schistocytes (NONE ON SCAN) TRACE Radiology data: Recent Impressions: RADIOLOGY - XR ABDOMEN 1 V 04/22 909 Report Impression - Status: SIGNED Entered: 04/22/2024926 IMPRESSION: 1. Moderate enlarged cardiac silhouette. 2. Pulmonary atelectasis, infiltrates or edema within the lower lungs, worse on the left side. 3. Degenerative and postsurgical changes are demonstrated, as described above. Impression By: [email or web address] - Miguel Yomi-Delon M.D. Diagnosis, Assessment Plan Free Text A P: 1. ESRD on hemodialysis Hemodialysis on Tuesday and Tuesday. 2. Hyponatremia. 3. Fluid overload. 4. Chronic anemia. 5. A-fib with RVR. 6. Elevated troponin. Recommendations: 04/22: No need for HD today. 04/21: Remains Hypervoelmic. HD today, targer 3L. 04/20: Hypervolemic. HD today. 04/19: Hemodialysis today. Target for removal 2 to 3 L. Renal restriction diet once patient is able to tolerate p.o. Limit fluid to 1 L a day. Avoid NSAID. Status adjustment to GFR. Epogen subcutaneous. Check phosphorus, adjust phosphorus binders. Thank you for consultation, any question please call [phone] at 0012 RPT #: [id number] END OF REPORT [id number] 17:17:00 [facility] Hospitalist Progress Note REPORT#:[id number] REPORT STATUS: Signed REPORT INITIALIZATION DATE:04/21/24 TIME:1716 PATIENT: ELVIS FREEMAN UNIT #: [id number] ROOM/BED: [place] [address] : 61 AGE: 64 SEX: F ATTEND: Mushtaq Mayorga MD ADM AUTHOR: Mushtaq Mayorga MD REPT SERVICE DT/TIME: 04/21/241716 * ALL edits or amendments must be made on the electronic/computer document * Subjective Chief complaint: Sudden onset shortness of breath HPI: This is a 63-year-old female presenting today with a chief complaint of shortness of breath and abdominal distention. EMS was called. They found her in A-fib with a heart rate of 180. She was also hypoxic to 79%, hypotensive with a blood pressure of 89/45. They gave her Cardizem with slight improvement in rate to 140s. She remained hypotensive. They called for verbal orders and I recommended that she be placed on CPAP and given 100 cc bolus if needed after that she could be given Levophed. She received 100 cc bolus and placed on CPAP. She is a ESRD patient on Tuesday dialysis still making urine. She went to her last session and had a full session. She reports that today she was having difficulty breathing and felt that her abdomen was distended. She also has some chest heaviness as well as palpitations. She called EMS for that. She denies any fevers, chills, nausea, vomiting, abdominal pain, diarrhea, constipation, dysuria, flank pain, rash. Reports lower extremity edema. Additionally patient reports that she was recently discharged about a week ago from [facility]. She had been there for 3 weeks under treatment for same reasons. She will had a possible ablation done to the heart. Patient has a hospital monitor. Review of Systems Free Text ROS Notes Free Text ROS Notes: Patient reports shortness of breath, chest pressure, palpitations, edema and abdominal distention. Denies nausea, vomiting, abdominal pain, dizziness and syncope. Objective General VS/I O: Vital Signs: Date Time Temp Pulse Resp B/P B/P Pulse O2 O2 Flow FiO2 Mean Ox Delivery Rate 04/22 1625 36.7 04/22 1207 36.5 04/22 1200 66 15 131/59 85 99 04/22 1117 67 31 129/67 91 100 04/22 1000 66 22 121/84 99 100 04/22 0900 69 19 125/58 83 99 04/22 0849 99 Nasal 2 28 cannula 04/22 0800 36.2 04/22 0800 Nasal 2 cannula 04/22 0701 62 17 145/75 104 100 04/22 0601 66 20 115/64 80 99 04/22 0501 64 19 123/59 82 99 04/22 0400 66 28 134/68 95 100 04/22 0314 36.5 04/22 0300 65 15 119/62 85 99 04/22 0201 65 20 111/55 79 94 04/22 0130 66 100 35 04/22 0100 68 22 123/62 87 98 04/22 0001 62 16 132/66 93 100 04/21 2338 64 100 35 04/21 2318 36.9 04/21 2301 67 28 103/53 77 94 04/21 2200 66 24 128/85 103 100 04/21 2100 64 29 122/69 90 100 04/21 2030 100 Nasal 3 32 cannula 04/21 2001 36.8 04/21 2000 BiPAP 04/21 2000 69 34 150/74 105 100 04/21 1922 75 21 146/77 105 04/21 1800 74 20 147/67 96 100 24 hour I O ending at 0700: 04/22 0700 04/21 1900 Intake Total 350 Output Total 3500 Balance -3150 Intake, Oral 350 Number 3 Bowel Movements Output, 3500 Hemodialysis Patient 80.467 kg Weight Weight Bed scale Measurement Method PATIENT WEIGHT: Weight (lb): 177 Weight (oz): 6.39 Weight (kg): 80.467 Medications: Active Meds + DC'd Last 24 Hrs Insulin Human Lispro (Admelog) 0 AC HS SUBQ (CAN) Insulin Human Lispro (Admelog) 0 AC HS SUBQ Amiodarone HCl (CORDARONE) 400 MG BID PO (CKD) Insulin Glargine (Lantus/Semglee) 10 UNIT BEDTIME SUBQ Ropinirole HCl (REQUIP) 0.5 MG BEDTIME PO Sodium Chloride (0.9% Sodium Chloride) 2,000 ML .Q24H PRN IV (DC) Atorvastatin Calcium (LIPITOR) 40 MG BEDTIME PO Heparin Sodium (Porcine) (HEPARIN SODIUM) ENTER DOSE ASDIR PRN IV Heparin Sodium/Dextrose (HEPARIN 25,000 UNITS/250ML) 250 ML ASDIR IV ( CKD) Azithromycin (ZITHROMAX) 500 MG DAILY PO Clopidogrel Bisulfate (Plavix) 75 MG DAILY PO Ezetimibe (ZETIA) 10 MG DAILY PO Furosemide (LASIX) 60 MG BID 9A 5P IV Polyethylene Glycol (MIRALAX) 17 GM DAILY PO Dextrose (GLUCOSE) 4 GM ASDIR PRN PO Dextrose/Water (DEXTROSE 10% IN WATER 250 ML) 250 ML ASDIR IV Glucagon (GLUCAGON) 1 MG ASDIR PRN IM Amiodarone HCl (Nexterone 360 MG/200 Ml Bag) 200 ML ASDIR IV (DC) Gabapentin (NEURONTIN) 200 MG BID PO Insulin Human Lispro (Admelog) 0 AC HS SUBQ (DC) Melatonin (Melatonin) 5 MG BEDTIME PO Bisacodyl (DULCOLAX) 10 MG DAILY PRN PRN RECTAL Heparin Sodium (HEPARIN SODIUM) 3,600 UNITS ASDIR PRN IV Perflutren Lipid Microsphere (DEFINITY) 2 ML ONCE PRN IV (DC) Albumin Human (ALBUMINAR-25% 12.5 GM/50 ML) 25 GM BOLUS PRN IV Mannitol (MANNITOL 25%) 12.5 GM BOLUS PRN IV Norepinephrine Bitartrate (Levophed 16 MG/250 ML NS) 250 ML X1ED STA IV Dietitian nutrition assessment The data set between the solid lines has been imported from the dietitian's assessment. BMI Calculated: 32.4 Nutrition related diagnosis: Nutrition diagnosis details: Nutrition problem: Nutrition etiology: Nutrition signs and symptoms: Nutrition prescription: Dietitian name: Assessment completed: Free Text Obj Notes Free Text Obj Notes: HEENT: Atraumatic CVS: S1-S2 audible Resp: Bilateral Rales Abdomen: Protuberant Extremities: Bilateral lower extremity pitting edema 3+ Neuro: AAO x 3, no focal deficits, moving all extremities Diagnosis, Assessment Plan Free Text DxA P Notes Free text DxA P notes: #Acute onset shortness of breath likely secondary to fluid overload rule out ACS versus pneumonia #ESRD on hemodialysis #Restless leg syndrome #Chest pressure rule out ACS #Past medical history of CAD recent cath? #Past medical history A-fib with RVR status post ablation #Anasarca IMCU status Continue telemetry monitoring start on amio oral today Resume clopidogrel Resume gabapentin Resume ezetimibe Cont Heparin drip Send pneumonia workup Send blood culture Send sputum culture Continue IV antibiotics Vanc stopped MRSA screen neg Nephrology consultation Cardiology consultation appreciated Limited echo today rend troponin Continue cefepime add azithromycin Follow cultures Echo limited to be reviewed Continue amnio drip Start clopidogrel Continue home meds if no contraindications Repeat INR in a.m. Full code Renal diet Out of bed to chair O2 by nasal cannula 2 L titrate off Patient may need Pulm as outpatient for Sleep Study at 1741 RPT #: [id number] END OF REPORT [id number] 10:52:00 [facility] ([facility]) Cardiology Progress Note REPORT#:[id number] REPORT STATUS: Signed REPORT INITIALIZATION DATE:04/21/24 TIME:105 PATIENT: ELVIS FREEMAN UNIT #: [id number] ROOM/BED: [place] [id number] : 61 AGE: 64 SEX: F ATTEND: Mushtaq Mayorga MD ADM AUTHOR: Jeramie Forrest MD REPT SERVICE DT/TIME: 04/21/24 1052 * ALL edits or amendments must be made on the electronic/computer document * Subjective HPI: . Free Text Subj Notes Free Text Subj Notes: Patient examined at bedside. She is feeling better. Shortness of breath slowly improving. Objective General VS/I O: 24 hour I O ending at 0700: 04/21 0700 04/20 1900 Intake Total 718.30 520 Output Total 3300 Balance 718.30 -2780 Intake, IV 318.30 Intake, Oral 400 520 Number 3 1 Bowel Movements Number 0 0 Incontinent Voids Number Voids 1 2 Output, 3000 Hemodialysis Output, Urine 300 Vital Signs: Date Time Temp Pulse Resp B/P B/P Pulse O2 O2 Flow FiO2 Mean Ox Delivery Rate 04/21 0910 98.1 73 23 126/60 100 Nasal 2 100 cannula 04/21 0738 97.7 04/21 0500 68 16 120/56 81 99 04/21 0400 68 17 123/57 82 98 04/21 0341 98.2 04/21 0300 69 18 114/53 77 97 04/21 0200 68 17 140/62 89 98 04/21 0100 68 20 132/58 84 97 04/21 0000 68 33 122/55 78 98 04/20 2323 98.4 04/20 2300 72 24 119/54 78 81 04/20 2215 73 36 120/57 79 100 04/209 73 26 91/50 66 79 04/20 2000 73 16 90 04/20 1950 100 Nasal 2 cannula 04/20 193 98.2 04/20 1900 78 27 81 04/20 1817 97.3 74 19 138/71 100 Nasal 3 cannula 04/20 1800 72 20 95 04/20 1756 74 21 136/71 97 93 04/20 1701 69 22 129/64 90 92 04/20 1643 97.3 04/20 1600 97.8 04/20 1600 66 25 131/61 88 99 04/20 1557 97 Nasal 2 28 cannula 04/20 1530 64 22 118/66 87 99 04/20 1514 65 24 114/67 81 85 04/20 1501 98.4 77 19 130/76 100 Nasal 3 cannula 04/20 1401 65 21 174/81 116 100 04/20 1301 67 26 125/66 90 94 04/20 1201 67 18 167/79 114 92 04/20 1200 98.3 04/20 1200 Nasal 3 cannula 04/20 1138 97.7 04/20 1101 67 18 87/51 65 97 PATIENT WEIGHT: Weight (lb): Weight (oz): Weight (kg): 87.200 Medications: Active Meds + DC'd Last 24 Hrs Sodium Chloride (0.9% Sodium Chloride) 2,000 ML .Q24H PRN IV Atorvastatin Calcium (LIPITOR) 40 MG BEDTIME PO Heparin Sodium (Porcine) (HEPARIN SODIUM) ENTER DOSE ASDIR PRN IV Heparin Sodium/Dextrose (HEPARIN 25,000 UNITS/250ML) 250 ML ASDIR IV ( CKD) Azithromycin (ZITHROMAX) 500 MG DAILY PO Clopidogrel Bisulfate (Plavix) 75 MG DAILY PO Ezetimibe (ZETIA) 10 MG DAILY PO Furosemide (LASIX) 60 MG BID 9A 5P IV Polyethylene Glycol (MIRALAX) 17 GM DAILY PO Dextrose (GLUCOSE) 4 GM ASDIR PRN PO Dextrose/Water (DEXTROSE 10% IN WATER 250 ML) 250 ML ASDIR IV Glucagon (GLUCAGON) 1 MG ASDIR PRN IM Amiodarone HCl (Nexterone 360 MG/200 Ml Bag) 200 ML ASDIR IV (CKD) Gabapentin (NEURONTIN) 200 MG BID PO Insulin Human Lispro (Admelog) 0 AC HS SUBQ Melatonin (Melatonin) 5 MG BEDTIME PO Bisacodyl (DULCOLAX) 10 MG DAILY PRN PRN RECTAL Miscellaneous Information (VANCOMYCIN PHARMACY TO DOSE) 1 EACH ASDIR IV (DC) Heparin Sodium (HEPARIN SODIUM) 3,600 UNITS ASDIR PRN IV Perflutren Lipid Microsphere (DEFINITY) 2 ML ONCE PRN IV (CKD) Sodium Chloride (0.9% Sodium Chloride) 2,000 ML .Q24H PRN IV (DC) Albumin Human (ALBUMINAR-25% 12.5 GM/50 ML) 25 GM BOLUS PRN IV Mannitol (MANNITOL 25%) 12.5 GM BOLUS PRN IV Norepinephrine Bitartrate (Levophed 16 MG/250 ML NS) 250 ML X1ED STA IV Cefepime HCl (MAXIPIME) 1 GM X1ED STA IV Sodium Chloride (0.9% Sodium Chloride) 50 ML Results Findings/Data: Laboratory Tests 04/21 04/21 04/20 04/20 04/20 0735 0302 2111 2028 1644 Chemistry Sodium (136 - 145 mmol/L) 136 Potassium (3.4 - 5.0 mmol/L) 3.5 Chloride (98 - 107 mmol/L) 99 Carbon Dioxide (21 - 32 mmol/L) 26 Anion Gap (4 - 15 GAP calc) 11 BUN (7 - 18 MG/DL) 15 Creatinine (0.6 - 1.0 MG/DL) 3.4 H Glomerular Filtr Rate (>60 estGFR) 15 L Glucose (70 - 110 MG/DL) 152 H POC Glucose (70 - 110 mg/dL) 197 H 258 H 134 H Calcium (8.5 - 10.1 MG/DL) 8.3 L Troponin I High Sens (0 - 54 ng/L) 536.0 *H 04/20 1136 Chemistry POC Glucose (70 - 110 mg/dL) 217 H Laboratory Tests 04/21 04/20 04/20 0302 2112 1325 Coagulation INR (0.8 - 1.2 INR Unit) 2.64 H PTT (Jordy) (26 - 35 SECONDS) 115.0 *H 83.2 H 36.5 H PT Patient/Control Mix (9.3 - 12.9 SECONDS) 28.5 H Laboratory Tests 04/21 030 Hematology WBC (3.5 - 11.0 K/mm3) 10.9 RBC (4.70 - 6.10 M/mm3) 3.08 L Hgb (10.4 - 14.9 G/DL) 7.5 L Hct (31.5 - 44.1 %) 26.2 L MCV (84.5 - 98.6 Fl) 85.1 MCH (27.0 - 34.2 pg) 24.4 L MCHC (31.5 - 34.0 G/DL) 28.6 L RDW (11.5 - 14.5 SD) 16.4 H Plt Count (150 - 450 K/mm3) 406 MPV (7.0 - 10.5 fL) 10.30 Neut % (Auto) (40 - 76 %) 66.3 Lymph % (Auto) (20.5 - 51.1 %) 17.9 L Woodson % (Auto) (1.7 - 9.3 %) 11.1 H Eos % (Auto) (0.0 - 6.0 %) 2.4 Baso % (Auto) (0.0 - 2.0 %) 1.9 Neut # (Auto) (1.8 - 7.6 K/mm3) 7.2 Lymph # (Auto) (0.6 - 3.2 K/mm3) 1.9 Woodson # (Auto) (0.3 - 1.1 K/mm3) 1.2 H Eos # (Auto) (0.0 - 0.4 K/mm3) 0.3 Baso # (Auto) (0.0 - 0.1 K/mm3) 0.2 H Abs Immat Gran (auto) (0.00 - 0.03 x10 3/uL) 0.04 H Immature Gran % (0.0 - 5.0 %) 0.4 Nucleated RBC % (0.0 - 1.0 /100WBC%) 0.0 Platelet Estimate (ADEQUATE THOUSAND) SLIGHTLY INCREASED Plt Morphology Comment NORMAL Polychromasia (NONE ON SCAN) 1+ Hypochromasia (NONE ON SCAN) 3+ H Anisocytosis (NONE) 2+ H Microcytosis (NONE ON SCAN) 1+ Macrocytosis (NONE ON SCAN) 2+ H Spherocytes (NONE ON SCAN) TRACE Target Cells (NONE ON SCAN) 2+ H Tear Drop Cells (NONE ON SCAN) 1+ Ovalocytes (NONE ON SCAN) 1+ Microbiology Date/Time Procedure - Status Source Growth 04/20 2251 Occult Blood - COMP STOOL Laboratory Tests 04/20 2112 Chemistry Troponin I High Sens (0 - 54 ng/L) 536.0 *H Free Text Obj Notes Free Text Obj Notes: GENERAL: Well developed, comfortable, in no distress HEENT: Normocephalic, atraumatic NECK: JVP not raised, no carotid bruit CHEST: Normal shape and contour LUNGS: Equal air entry bilaterally, normal vesicular breathing HEART: Irregular heart rhythm, rate controlled ABDOMEN: Soft, lax, non-tender, non-distended PERIPHERAL PULSES: 2+ dorsalis pedis pulses EXTREMITIES: No edema, no clubbing or cyanosis NEUROLOGIC:no gross motor or sensory deficits Diagnosis, Assessment Plan Free Text DxA P Notes Free Text DxA P Notes: Acute on chronic HFpEF Atrial fibrillation with rapid ventricular CAD Pericardial effusion Anasarca End-stage renal disease on hemodialysis Continue on IV diuresis. Patient still makes some urine. Continue on Plavix. Transition to heparin/Lovenox while inpatient. Continue amiodarone drip for now. Nephrology is following. Check daily weight. Echo reviewed. Will order follow-up echocardiogram. Continue on high-dose statin. Further recommendation on clinical improvement. Xray reviewed Daily weight Monitor I/O Beta blockers Further management as per Echo report and clinical improvement 2024: Patient shortness of breath is slowly improving. Continue diuresis. Continue amiodarone. Will order repeat echo. Continue on carvedilol. at 1932 RPT #: [id number] END OF REPORT [id number] 10:10:00 [facility] ([facility]) Nephrology Progress Note REPORT#:[id number] REPORT STATUS: Signed REPORT INITIALIZATION DATE:04/21/24 TIME:1010 PATIENT: ELVIS FREEMAN UNIT #: [id number] ROOM/BED: [place] [id number] : 62 AGE: 64 SEX: F ATTEND: Mushtaq Mayorga MD ADM AUTHOR: Anson Duncan MD REPT SERVICE DT/TIME: 04/21/24 1010 * ALL edits or amendments must be made on the electronic/computer document * Subjective HPI: 63-year-old female with history of ESRD on hemodialysis, brought to the hospital with shortness of breath and abdominal distention. Patient is ESRD on hemodialysis, hemodialysis on Tuesday and Tuesday. Last dialysis on Tuesday. Patient today did not feel well, she complained of shortness of breath and abdominal distention. EMS was called. Patient found to have A-fib with RVR, hypotension. Labs reviewed. Chest x-ray reviewed. Renal consulted for inpatient dialysis. Comments: Sob improved Review of Systems Free Text ROS Notes Free Text ROS Notes: 10 points ROS performed and documented in subjective, otherwise negative. Objective General VS/I O: Vital Signs: Date Time Temp Pulse Resp B/P B/P Pulse O2 O2 Flow FiO2 Mean Ox Delivery Rate 04/21 0910 36.7 73 23 126/60 100 Nasal 2 100 cannula 04/21 0738 36.5 04/21 0500 68 16 120/56 81 99 04/21 0400 68 17 123/57 82 98 04/21 0341 36.8 04/21 0300 69 18 114/53 77 97 04/21 0200 68 17 140/62 89 98 04/21 0100 68 20 132/58 84 97 04/21 0000 68 33 122/55 78 98 04/20 2323 36.9 04/20 2300 72 24 119/54 78 81 04/20 2215 73 36 120/57 79 100 04/20 2159 73 26 91/50 66 79 04/20 2000 73 16 90 04/20 1950 100 Nasal 2 cannula 04/20 1932 36.8 04/20 1900 78 27 81 04/20 1817 36.3 74 19 138/71 100 Nasal 3 cannula 04/20 1800 72 20 95 04/20 1756 74 21 136/71 97 93 04/20 1701 69 22 129/64 90 92 04/20 1643 36.3 04/20 1600 36.6 04/20 1600 66 25 131/61 88 99 04/20 1557 97 Nasal 2 28 cannula 04/20 1530 64 22 118/66 87 99 04/20 1514 65 24 114/67 81 85 04/20 1501 36.9 77 19 130/76 100 Nasal 3 cannula 04/20 1401 65 21 174/81 116 100 04/20 1301 67 26 125/66 90 94 04/20 1201 67 18 167/79 114 92 04/20 1200 36.8 04/20 1200 Nasal 3 cannula 04/20 1138 36.5 04/20 1101 67 18 87/51 65 97 24 hour I O ending at 0700: 04/21 0700 04/20 1900 Intake Total 718.30 520 Output Total 3300 Balance 718.30 -2780 Intake, IV 318.30 Intake, Oral 400 520 Number 3 1 Bowel Movements Number 0 0 Incontinent Voids Number Voids 1 2 Output, 3000 Hemodialysis Output, Urine 300 Medications Active Meds + DC'd Last 24 Hrs Atorvastatin Calcium (LIPITOR) 40 MG BEDTIME PO Heparin Sodium (Porcine) (HEPARIN SODIUM) ENTER DOSE ASDIR PRN IV Heparin Sodium/Dextrose (HEPARIN 25,000 UNITS/250ML) 250 ML ASDIR IV ( CKD) Azithromycin (ZITHROMAX) 500 MG DAILY PO Clopidogrel Bisulfate (Plavix) 75 MG DAILY PO Ezetimibe (ZETIA) 10 MG DAILY PO Furosemide (LASIX) 60 MG BID 9A 5P IV Polyethylene Glycol (MIRALAX) 17 GM DAILY PO Dextrose (GLUCOSE) 4 GM ASDIR PRN PO Dextrose/Water (DEXTROSE 10% IN WATER 250 ML) 250 ML ASDIR IV Glucagon (GLUCAGON) 1 MG ASDIR PRN IM Amiodarone HCl (Nexterone 360 MG/200 Ml Bag) 200 ML ASDIR IV (CKD) Gabapentin (NEURONTIN) 200 MG BID PO Insulin Human Lispro (Admelog) 0 AC HS SUBQ Melatonin (Melatonin) 5 MG BEDTIME PO Bisacodyl (DULCOLAX) 10 MG DAILY PRN PRN RECTAL Miscellaneous Information (VANCOMYCIN PHARMACY TO DOSE) 1 EACH ASDIR IV (DC) Heparin Sodium (HEPARIN SODIUM) 3,600 UNITS ASDIR PRN IV Perflutren Lipid Microsphere (DEFINITY) 2 ML ONCE PRN IV (CKD) Sodium Chloride (0.9% Sodium Chloride) 2,000 ML .Q24H PRN IV (DC) Albumin Human (ALBUMINAR-25% 12.5 GM/50 ML) 25 GM BOLUS PRN IV Mannitol (MANNITOL 25%) 12.5 GM BOLUS PRN IV Norepinephrine Bitartrate (Levophed 16 MG/250 ML NS) 250 ML X1ED STA IV Cefepime HCl (MAXIPIME) 1 GM X1ED STA IV Sodium Chloride (0.9% Sodium Chloride) 50 ML Physical Exam General appearance: alert Head/eyes: normocephalic ENT: normal nose Neck: no JVD C-Spine clearance: no midline tenderness Cardiovascular: normal heart sounds Respiratory: clear to auscultation Abdomen: soft Genitourinary: no bladder distention Extremities: no edema Musculoskeletal: no tendereness Neuro/EMBOSSING TOOLSETTER: alert, oriented X 3 Results Findings/Data: Laboratory Tests 04/21 04/21 04/20 04/20 04/20 0735 0302 2111 2028 1644 Chemistry Sodium (136 - 145 mmol/L) 136 Potassium (3.4 - 5.0 mmol/L) 3.5 Chloride (98 - 107 mmol/L) 99 Carbon Dioxide (21 - 32 mmol/L) 26 Anion Gap (4 - 15 GAP calc) 11 BUN (7 - 18 MG/DL) 15 Creatinine (0.6 - 1.0 MG/DL) 3.4 H Glomerular Filtr Rate (>60 estGFR) 15 L Glucose (70 - 110 MG/DL) 152 H POC Glucose (70 - 110 mg/dL) 197 H 258 H 134 H Calcium (8.5 - 10.1 MG/DL) 8.3 L Troponin I High Sens (0 - 54 ng/L) 536.0 *H 04/20 1136 Chemistry POC Glucose (70 - 110 mg/dL) 217 H Laboratory Tests 04/21 04/20 04/20 0302 2111 1325 Coagulation INR (0.8 - 1.2 INR Unit) 2.64 H PTT (Jordy) (26 - 35 SECONDS) 115.0 *H 83.2 H 36.5 H PT Patient/Control Mix (9.3 - 12.9 SECONDS) 28.5 H Laboratory Tests 04/21 302 Hematology WBC (3.5 - 11.0 K/mm3) 10.9 RBC (4.70 - 6.10 M/mm3) 3.08 L Hgb (10.4 - 14.9 G/DL) 7.5 L Hct (31.5 - 44.1 %) 26.2 L MCV (84.5 - 98.6 Fl) 85.1 MCH (27.0 - 34.2 pg) 24.4 L MCHC (31.5 - 34.0 G/DL) 28.6 L RDW (11.5 - 14.5 SD) 16.4 H Plt Count (150 - 450 K/mm3) 406 MPV (7.0 - 10.5 fL) 10.30 Neut % (Auto) (40 - 76 %) 66.3 Lymph % (Auto) (20.5 - 51.1 %) 17.9 L Woodson % (Auto) (1.7 - 9.3 %) 11.1 H Eos % (Auto) (0.0 - 6.0 %) 2.4 Baso % (Auto) (0.0 - 2.0 %) 1.9 Neut # (Auto) (1.8 - 7.6 K/mm3) 7.2 Lymph # (Auto) (0.6 - 3.2 K/mm3) 1.9 Woodson # (Auto) (0.3 - 1.1 K/mm3) 1.2 H Eos # (Auto) (0.0 - 0.4 K/mm3) 0.3 Baso # (Auto) (0.0 - 0.1 K/mm3) 0.2 H Abs Immat Gran (auto) (0.00 - 0.03 x10 3/uL) 0.04 H Immature Gran % (0.0 - 5.0 %) 0.4 Nucleated RBC % (0.0 - 1.0 /100WBC%) 0.0 Platelet Estimate (ADEQUATE THOUSAND) SLIGHTLY INCREASED Plt Morphology Comment NORMAL Polychromasia (NONE ON SCAN) 1+ Hypochromasia (NONE ON SCAN) 3+ H Anisocytosis (NONE) 2+ H Microcytosis (NONE ON SCAN) 1+ Macrocytosis (NONE ON SCAN) 2+ H Spherocytes (NONE ON SCAN) TRACE Target Cells (NONE ON SCAN) 2+ H Tear Drop Cells (NONE ON SCAN) 1+ Ovalocytes (NONE ON SCAN) 1+ Microbiology Date/Time Procedure - Status Source Growth 04/20 2251 Occult Blood - COMP STOOL Diagnosis, Assessment Plan Free Text A P: 1. ESRD on hemodialysis Hemodialysis on Tuesday and Tuesday. 2. Hyponatremia. 3. Fluid overload. 4. Chronic anemia. 5. A-fib with RVR. 6. Elevated troponin. Recommendations: 04/21: Remains Hypervoelmic. HD today, targer 3L. 04/20: Hypervolemic. HD today. 04/19: Hemodialysis today. Target for removal 2 to 3 L. Renal restriction diet once patient is able to tolerate p.o. Limit fluid to 1 L a day. Avoid NSAID. Status adjustment to GFR. Epogen subcutaneous. Check phosphorus, adjust phosphorus binders. Thank you for consultation, any question please call [phone] at [phone] [facility] #: [id number] END OF REPORT [id number] 14:[id number] [facility] [address] [place] [address] PATIENT NAME: ELVIS FREEMAN ADMIT DATE: 04/19/24 ACCOUNT NO: [id number] ROOM NO: [facility] AGE: 63 REPORT TYPE: eECHOCARDIOGRAM REPORT SEX: F ADMITTING PHYSICIAN: Mushtaq Mayorga MD ATTENDING PHYSICIAN: Mushtaq Mayorga MD *[facility]* [address] [place], [place] [address] Transthoracic Echocardiogram Patient: Elvis Freeman Study Date: 04/20/2024 BP: 125 / 75 URN: [id number] Location: : 1960 Age: 63 Gender: F Height: 61.8 in / 157 cm Weight: 192.2 lb / 87.2 kg BMI/BSA: 35.4 kg/m 2 / 1.99 m 2 *Ordering Physician: Mushtaq More *Interpreting Physician: Jeramie Perez MD *Environmental Sampling Technician: * Ирина Stone Indications: Chest pressure r/o acs. Study data: Transthoracic echocardiogram. Procedure: A transthoracic echocardiogram was performed. Image quality was adequate. Complete 2D, complete spectral Doppler, and color Doppler. Location: Bedside. Patient status: Inpatient. Patient room number: 310. Study status: Stat. Heart rate: 65 bpm. Findings Left ventricle: The cavity size is normal. Wall thickness is mildly increased. Systolic function is normal. The estimated ejection fraction is 65-69%. Wall motion is normal; there are no regional wall motion abnormalities. Left ventricular diastolic function parameters are normal. PATIENT NAME: ELVIS FREEMAN Right ventricle: The cavity size is normal. Systolic function is reduced. The tricuspid annular plane systolic excursion is 1.3 cm. The RV pressure during systole is 50 mm Hg. Left atrium: The atrium is normal in size. Right atrium: The atrium is normal in size. Aorta: Aortic root: The root is normal-sized. Aortic valve: The annulus is mildly calcified. The valve is trileaflet. There is no evidence of stenosis. There is no regurgitation. Mitral valve: The annulus is mildly calcified. The findings are consistent with mild stenosis. There is mild regurgitation. Tricuspid valve: The valve is structurally normal. There is mild-moderate regurgitation. Pulmonic valve: The valve is structurally normal. There is no significant regurgitation. Pericardium: A moderate pericardial effusion is identified. No signs of chamber collapse are evident. Pulmonary arteries: The main pulmonary artery is normal-sized. Systemic veins: Inferior vena cava: The IVC is dilated. Measurements Left ventricle Value Ref TISH, LAX 3.8 cm 3.8 - 5.2 ESD, LAX 2.4 cm 2.2 - 3.5 FS, LAX 37 % 27 - 45 IVS, ED 1.2 cm 0.6 - 0.9 PW, ED 1.2 cm 0.6 - 0.9 IVS/PW, ED 0.99 --------- EF 67 % 54 - 74 E', lat víctor, TDI 5.9 cm/sec >=10.0 E/e', lat víctor, TDI 13 <=13 E', med víctor, TDI 7.1 cm/sec >=7.0 E/e', med víctor, TDI 10 --------- E', avg, TDI 6.5 cm/sec --------- E/e', avg, TDI 11 <=14 LVOT Value Ref Diam, S 1.89 cm --------- Area 2.8 cm 2 --------- Peak kayla, S 1.05 m/sec --------- Mean kayla, S 0.7 m/sec --------- VTI, S 20.8 cm --------- Peak grad, S 4 mm Hg --------- Mean grad, S 2 mm Hg --------- SV 58 ml --------- SV/bsa 29 ml/m 2 --------- Right ventricle Value Ref TISH, LAX 2.9 cm --------- TAPSE, MM 1.3 cm >=1.7 Pressure, S 50 mm Hg --------- PATIENT NAME: ELVIS FREEMAN Left atrium Value Ref Vol/bsa, ES, 1-p A4C 32 ml/m 2 11 - 40 Vol/bsa, ES, A/L 35 ml/m 2 16 - 34 AP dim, ES MM 4.6 cm 2.7 - 3.8 LA/Ao root ratio, MM 1.66 --------- Aortic valve Value Ref Leaflet sep, MM 1.84 cm --------- Peak v, S 1.2 m/sec --------- Mean v, S 0.77 m/sec --------- VTI, S 22.5 cm --------- Mean grad, S 3 mm Hg --------- Peak grad, S 5.9 mm Hg --------- LVOT/AV, VTI ratio 0.92 --------- KARLA, VTI 2.59 cm 2 --------- LVOT/AV, Vpeak ratio 0.86 --------- KARLA, Vmax 2.42 cm 2 --------- Mitral valve Value Ref Mean v, D 0.71 m/sec --------- Peak E 0.74 m/sec --------- Peak A 0.91 m/sec --------- VTI leaflet coapt 47.4 cm --------- MiV/LVOT VTI 2.3 --------- Decel time 146 ms --------- Mean grad, D 3 mm Hg --------- Peak grad, D 10.0 mm Hg --------- Peak E/A ratio 0.81 --------- MR peak v 4.61 m/sec --------- Tricuspid valve Value Ref TR peak v 2.8 m/sec <=2.8 Peak RV-RA grad, S 30 mm Hg --------- Aortic root Value Ref Root diam, ED MM 2.8 cm --------- Pulmonary artery Value Ref Pressure, S 45.9 mm Hg --------- Systemic veins Value Ref Estimated CVP 20 mm Hg --------- Conclusions Summary: 1. Left ventricle: The cavity size is normal. Wall thickness is mildly increased. Systolic function is normal. The estimated ejection fraction is 65-69%. Wall motion is normal; there are no regional wall motion abnormalities. Left ventricular diastolic function parameters are normal. 2. Right ventricle: Systolic function is reduced. PATIENT NAME: ELVIS FREEMAN 3. Aortic valve: The annulus is mildly calcified. The valve is trileaflet. 4. Mitral valve: The annulus is mildly calcified. The findings are consistent with mild stenosis. 5. Tricuspid valve: There is mild-moderate regurgitation. 6. Pericardium, extracardiac: A moderate pericardial effusion is identified. Recommendations: Monitor with serial echoes. Electronically signed by Jeramie Forrest MD 04/20/2024 14:51 at 1451 PATIENT NAME: ELVIS FREEMAN 12:56:00 [facility] Hospitalist Progress Note REPORT#:[id number] REPORT STATUS: Signed REPORT INITIALIZATION DATE:04/20/24 TIME:125 PATIENT: ELVIS FREEMAN UNIT #: [id number] ROOM/BED: [place] [id number] : [birth year] AGE: 63 SEX: F ATTEND: Mushtaq Mayorga MD ADM AUTHOR: Mushtaq Mayorga MD REPT SERVICE DT/TIME: 04/20/24 1256 * ALL edits or amendments must be made on the electronic/computer document * Subjective Chief complaint: Sudden onset shortness of breath HPI: This is a 63-year-old female presenting today with a chief complaint of shortness of breath and abdominal distention. EMS was called. They found her in A-fib with a heart rate of 180. She was also hypoxic to 79%, hypotensive with a blood pressure of 89/45. They gave her Cardizem with slight improvement in rate to 140s. She remained hypotensive. They called for verbal orders and I recommended that she be placed on CPAP and given 100 cc bolus if needed after that she could be given Levophed. She received 100 cc bolus and placed on CPAP. She is a ESRD patient on Tuesday dialysis still making urine. She went to her last session and had a full session. She reports that today she was having difficulty breathing and felt that her abdomen was distended. She also has some chest heaviness as well as palpitations. She called EMS for that. She denies any fevers, chills, nausea, vomiting, abdominal pain, diarrhea, constipation, dysuria, flank pain, rash. Reports lower extremity edema. Additionally patient reports that she was recently discharged about a week ago from [facility]. She had been there for 3 weeks under treatment for same reasons. She will had a possible ablation done to the heart. Patient has a hospital monitor. Review of Systems Free Text ROS Notes Free Text ROS Notes: Patient reports shortness of breath, chest pressure, palpitations, edema and abdominal distention. Denies nausea, vomiting, abdominal pain, dizziness and syncope. Objective General VS/I O: Vital Signs: Date Time Temp Pulse Resp B/P B/P Pulse O2 O2 Flow FiO2 Mean Ox Delivery Rate 04/20 1950 100 Nasal 2 cannula 04/20 1932 36.8 04/20 1817 36.3 74 19 138/71 100 Nasal 3 cannula 04/20 1756 74 21 136/71 97 93 04/20 1701 69 22 129/64 90 92 04/20 1643 36.3 04/20 1600 36.6 04/20 1600 66 25 131/61 88 99 04/20 1557 97 Nasal 2 28 cannula 04/20 1530 64 22 118/66 87 99 04/20 1514 65 24 114/67 81 85 04/20 1501 36.9 77 19 130/76 100 Nasal 3 cannula 04/20 1401 65 21 174/81 116 100 04/20 1301 67 26 125/66 90 94 04/20 1201 67 18 167/79 114 92 04/20 1200 36.8 04/20 1200 Nasal 3 cannula 04/20 1138 36.5 04/20 1101 67 18 87/51 65 97 04/20 1001 66 16 115/56 78 100 04/20 0900 74 29 142/80 104 97 04/20 0828 73 23 143/70 99 100 04/20 0800 Nasal 3 cannula 04/20 0751 36.5 04/20 0701 70 15 123/59 85 100 04/20 0500 75 23 125/75 95 100 04/20 0400 74 22 134/84 101 100 04/20 0331 36.6 04/20 0300 73 15 122/59 85 97 04/20 0200 73 15 105/55 75 90 04/20 0100 74 23 102/57 77 89 04/20 0000 75 25 106/54 76 89 04/19 2300 78 22 113/73 88 100 24 hour I O ending at 0700: 04/20 0700 04/19 1900 Intake Total 500.00 Output Total 2500 Balance -2000.00 Intake, IV 500.00 Number 1 Bowel Movements Output, 2500 Hemodialysis Patient 87.2 kg Weight Weight Bed scale Measurement Method PATIENT WEIGHT: Weight (lb): Weight (oz): Weight (kg): 87.200 Medications: Active Meds + DC'd Last 24 Hrs Atorvastatin Calcium (LIPITOR) 40 MG BEDTIME PO Heparin Sodium (Porcine) (HEPARIN SODIUM) ENTER DOSE ASDIR PRN IV Heparin Sodium/Dextrose (HEPARIN 25,000 UNITS/250ML) 250 ML ASDIR IV ( CKD) Azithromycin (ZITHROMAX) 500 MG DAILY PO Clopidogrel Bisulfate (Plavix) 75 MG DAILY PO Ezetimibe (ZETIA) 10 MG DAILY PO Furosemide (LASIX) 60 MG BID 9A 5P IV Polyethylene Glycol (MIRALAX) 17 GM DAILY PO Dextrose (GLUCOSE) 4 GM ASDIR PRN PO Dextrose/Water (DEXTROSE 10% IN WATER 250 ML) 250 ML ASDIR IV Glucagon (GLUCAGON) 1 MG ASDIR PRN IM Amiodarone HCl (Nexterone 360 MG/200 Ml Bag) 200 ML ASDIR IV (CKD) Gabapentin (NEURONTIN) 200 MG BID PO Insulin Human Lispro (Admelog) 0 AC HS SUBQ Melatonin (Melatonin) 5 MG BEDTIME PO Bisacodyl (DULCOLAX) 10 MG DAILY PRN PRN RECTAL Azithromycin (ZITHROMAX) 500 MG Q24H IV (DC) Sodium Chloride (0.9% Sodium Chloride) 250 ML Miscellaneous Information (VANCOMYCIN PHARMACY TO DOSE) 1 EACH ASDIR IV Heparin Sodium (HEPARIN SODIUM) 3,600 UNITS ASDIR PRN IV Perflutren Lipid Microsphere (DEFINITY) 2 ML ONCE PRN IV (CKD) Sodium Chloride (0.9% Sodium Chloride) 2,000 ML .Q24H PRN IV (DC) Albumin Human (ALBUMINAR-25% 12.5 GM/50 ML) 25 GM BOLUS PRN IV Mannitol (MANNITOL 25%) 12.5 GM BOLUS PRN IV Amiodarone HCl (Nexterone 360 MG/200 Ml Bag) 200 ML X1ED STA IV (DC) Norepinephrine Bitartrate (Levophed 16 MG/250 ML NS) 250 ML X1ED STA IV Cefepime HCl (MAXIPIME) 1 GM X1ED STA IV Sodium Chloride (0.9% Sodium Chloride) 50 ML Dietitian nutrition assessment The data set between the solid lines has been imported from the dietitian's assessment. BMI Calculated: 35.2 Nutrition related diagnosis: Nutrition diagnosis details: Nutrition problem: Nutrition etiology: Nutrition signs and symptoms: Nutrition prescription: Dietitian name: Assessment completed: Free Text Obj Notes Free Text Obj Notes: HEENT: Atraumatic CVS: S1-S2 audible Resp: Bilateral Rales Abdomen: Protuberant Extremities: Bilateral lower extremity pitting edema 3+ Neuro: AAO x 3, no focal deficits, moving all extremities Diagnosis, Assessment Plan Free Text DxA P Notes Free text DxA P notes: #Acute onset shortness of breath likely secondary to fluid overload rule out ACS versus pneumonia #ESRD on hemodialysis #Restless leg syndrome IMCU status Continue telemetry monitoring Continue amiodarone drip Resume clopidogrel Resume gabapentin Resume ezetimibe Start on Heparin drip Send pneumonia workup Send blood culture Send sputum culture Continue IV antibiotics Nephrology consultation Cardiology consultation Trend troponin Continue cefepime add azithromycin and vancomycin UA negative for UTI Follow CT chest and CT AP #Chest pressure rule out ACS #Past medical history of CAD recent cath? #Past medical history A-fib with RVR status post ablation Echo Continue amnio drip Start clopidogrel Continue home meds if no contraindications Repeat INR in a.m. Full code Renal diet Out of bed to chair O2 by nasal cannula 2 L at 2259 RPT #: [id number] END OF REPORT [id number] 11:03:00 [facility] ([facility]) Nephrology Progress Note REPORT#:[id number] REPORT STATUS: Signed REPORT INITIALIZATION DATE:04/20/24 TIME:1102 PATIENT: ELVIS FREEMAN UNIT #: [id number] ROOM/BED: [place] [address] : 62 AGE: 63 SEX: F ATTEND: Mushtaq Mayorga MD ADM AUTHOR: Anson Duncan MD REPT SERVICE DT/TIME: 04/20/24 1103 * ALL edits or amendments must be made on the electronic/computer document * Subjective HPI: 63-year-old female with history of ESRD on hemodialysis, brought to the hospital with shortness of breath and abdominal distention. Patient is ESRD on hemodialysis, hemodialysis on Tuesday and Tuesday. Last dialysis on Tuesday. Patient today did not feel well, she complained of shortness of breath and abdominal distention. EMS was called. Patient found to have A-fib with RVR, hypotension. Labs reviewed. Chest x-ray reviewed. Renal consulted for inpatient dialysis. Comments: SOB improved. Review of Systems Free Text ROS Notes Free Text ROS Notes: 10 point review of system performed documented subjective, otherwise negative. Objective General VS/I O: Vital Signs: Date Time Temp Pulse Resp B/P B/P Pulse O2 O2 Flow FiO2 Mean Ox Delivery Rate 04/20 1643 36.3 04/20 1557 97 Nasal 2 28 cannula 04/20 1501 36.9 77 19 130/76 100 Nasal 3 cannula 04/20 1138 36.5 04/20 0800 Nasal 3 cannula 04/20 0751 36.5 04/20 0500 75 23 125/75 95 100 04/20 0400 74 22 134/84 101 100 04/20 0331 36.6 04/20 0300 73 15 122/59 85 97 04/20 0200 73 15 105/55 75 90 04/20 0100 74 23 102/57 77 89 04/20 0000 75 25 106/54 76 89 04/19 2300 78 22 113/73 88 100 04/19 2201 79 32 109/58 71 98 04/19 2117 37.0 80 19 121/66 100 Nasal 4 cannula 04/19 2114 80 26 121/66 88 100 04/19 2100 81 27 134/61 90 100 04/19 2045 80 33 142/70 97 100 04/19 2030 80 38 125/69 93 100 04/19 2015 80 33 132/73 98 100 04/19 2004 36.8 04/19 2001 82 29 168/66 95 97 04/19 1946 82 35 135/76 91 04/19 1930 81 22 153/71 102 82 04/19 1915 85 21 144/75 98 92 04/19 1900 83 20 154/99 120 98 04/19 1815 86 22 132/72 94 04/19 1801 84 26 133/69 94 24 hour I O ending at 0700: 04/20 0700 04/19 1900 Intake Total 500.00 Output Total 2500 Balance -2000.00 Intake, IV 500.00 Number 1 Bowel Movements Output, 2500 Hemodialysis Patient 87.2 kg Weight Weight Bed scale Measurement Method Medications Active Meds + DC'd Last 24 Hrs Atorvastatin Calcium (LIPITOR) 40 MG BEDTIME PO Heparin Sodium (Porcine) (HEPARIN SODIUM) ENTER DOSE ASDIR PRN IV Heparin Sodium/Dextrose (HEPARIN 25,000 UNITS/250ML) 250 ML ASDIR IV ( CKD) Azithromycin (ZITHROMAX) 500 MG DAILY PO Clopidogrel Bisulfate (Plavix) 75 MG DAILY PO Ezetimibe (ZETIA) 10 MG DAILY PO Furosemide (LASIX) 60 MG BID 9A 5P IV Polyethylene Glycol (MIRALAX) 17 GM DAILY PO Dextrose (GLUCOSE) 4 GM ASDIR PRN PO Dextrose/Water (DEXTROSE 10% IN WATER 250 ML) 250 ML ASDIR IV Glucagon (GLUCAGON) 1 MG ASDIR PRN IM Amiodarone HCl (Nexterone 360 MG/200 Ml Bag) 200 ML ASDIR IV (CKD) Gabapentin (NEURONTIN) 200 MG BID PO Insulin Human Lispro (Admelog) 0 AC HS SUBQ Melatonin (Melatonin) 5 MG BEDTIME PO Bisacodyl (DULCOLAX) 10 MG DAILY PRN PRN RECTAL Azithromycin (ZITHROMAX) 500 MG Q24H IV (DC) Sodium Chloride (0.9% Sodium Chloride) 250 ML Vancomycin HCl (Vancomycin HCl) 1,500 MG ONCE ONE IV (DC) Sodium Chloride (0.9% Sodium Chloride) 250 ML Miscellaneous Information (VANCOMYCIN PHARMACY TO DOSE) 1 EACH ASDIR IV Heparin Sodium (HEPARIN SODIUM) 3,600 UNITS ASDIR PRN IV Perflutren Lipid Microsphere (DEFINITY) 2 ML ONCE PRN IV (CKD) Sodium Chloride (0.9% Sodium Chloride) 2,000 ML .Q24H PRN IV (DC) Albumin Human (ALBUMINAR-25% 12.5 GM/50 ML) 25 GM BOLUS PRN IV Mannitol (MANNITOL 25%) 12.5 GM BOLUS PRN IV Amiodarone HCl (Nexterone 360 MG/200 Ml Bag) 200 ML X1ED STA IV (DC) Norepinephrine Bitartrate (Levophed 16 MG/250 ML NS) 250 ML X1ED STA IV Cefepime HCl (MAXIPIME) 1 GM X1ED STA IV Sodium Chloride (0.9% Sodium Chloride) 50 ML Physical Exam General appearance: awake Head/eyes: normocephalic ENT: normal nose Neck: no JVD C-Spine clearance: no midline tenderness Cardiovascular: normal heart sounds Respiratory: clear to auscultation Abdomen: soft Genitourinary: no bladder distention Extremities: no edema Musculoskeletal: no tendereness Neuro/EMBOSSING TOOLSETTER: alert, oriented X 3 Results Findings/Data: Laboratory Tests 04/20 04/20 04/20 04/20 04/20 1644 1136 0751 0259 0259 Chemistry Sodium (136 - 145 mmol/L) 136 Potassium (3.4 - 5.0 mmol/L) 4.0 Chloride (98 - 107 mmol/L) 99 Carbon Dioxide (21 - 32 mmol/L) 27 Anion Gap (4 - 15 GAP calc) 10 BUN (7 - 18 MG/DL) 18 Creatinine (0.6 - 1.0 MG/DL) 3.6 H Glomerular Filtr Rate (>60 estGFR) 14 L Glucose (70 - 110 MG/DL) 172 H POC Glucose (70 - 110 mg/dL) 134 H 217 H 189 H Calcium (8.5 - 10.1 MG/DL) 8.5 Troponin I High Sens (0 - 54 ng/L) 605.8 *H 04/19 04/19 04/19 04/19 2051 1825 1825 1809 Chemistry POC Glucose (70 - 110 mg/dL) 176 H 177 H Lactic Acid (0.4 - 1.9 mmol/L) 1.0 Troponin I High Sens (0 - 54 ng/L) 631.8 *H Laboratory Tests 04/20 1325 Coagulation INR (0.8 - 1.2 INR Unit) 2.64 H PTT (Jordy) (26 - 35 SECONDS) 36.5 H PT Patient/Control Mix (9.3 - 12.9 SECONDS) 28.5 H Laboratory Tests 04/20 0259 Hematology WBC (3.5 - 11.0 K/mm3) 10.5 RBC (4.70 - 6.10 M/mm3) 3.04 L Hgb (10.4 - 14.9 G/DL) 7.6 L Hct (31.5 - 44.1 %) 25.8 L MCV (84.5 - 98.6 Fl) 84.9 MCH (27.0 - 34.2 pg) 25.0 L MCHC (31.5 - 34.0 G/DL) 29.5 L RDW (11.5 - 14.5 SD) 16.7 H Plt Count (150 - 450 K/mm3) 437 MPV (7.0 - 10.5 fL) 10.20 Neut % (Auto) (40 - 76 %) 67.3 Lymph % (Auto) (20.5 - 51.1 %) 18.8 L Woodson % (Auto) (1.7 - 9.3 %) 12.1 H Eos % (Auto) (0.0 - 6.0 %) 0.3 Baso % (Auto) (0.0 - 2.0 %) 1.1 Neut # (Auto) (1.8 - 7.6 K/mm3) 7.1 Lymph # (Auto) (0.6 - 3.2 K/mm3) 2.0 Woodson # (Auto) (0.3 - 1.1 K/mm3) 1.3 H Eos # (Auto) (0.0 - 0.4 K/mm3) 0.0 Baso # (Auto) (0.0 - 0.1 K/mm3) 0.1 Abs Immat Gran (auto) (0.00 - 0.03 x10 3/uL) 0.04 H Immature Gran % (0.0 - 5.0 %) 0.4 Nucleated RBC % (0.0 - 1.0 /100WBC%) 0.0 Laboratory Tests 04/20 1808 Serology Hep Bs Antigen (NEGATIVE SCREEN) NEGATIVE NEGATIVE Laboratory Tests 04/20 259 Toxicology Vancomycin Trough (5 - 15 mcG/ML) 26 *H Microbiology Date/Time Procedure - Status Source Growth 04/19 1825 MRSA Screen - COMP NASAL Radiology data: Recent Impressions: RADIOLOGY - XR CHEST 1 V 04/20 0606 Report Impression - Status: SIGNED Entered: 04/20/2024 0714 IMPRESSION: 1. Mild hypoinflation associated with fairly stable mild central pulmonary vascular congestion, small bilateral pleural effusions, and hazy bilateral basilar opacities. Findings suggest subsegmental atelectasis, mild dependent pulmonary edema, or pneumonia. 2. Stable mild cardiomegaly. Impression By: [email or web address] - Varun Marley MD Diagnosis, Assessment Plan Free Text A P: 1. ESRD on hemodialysis Hemodialysis on Tuesday and Tuesday. 2. Hyponatremia. 3. Fluid overload. 4. Chronic anemia. 5. A-fib with RVR. 6. Elevated troponin. Recommendations: 04/20: Hypervolemic. HD today. 04/19: Hemodialysis today. Target for removal 2 to 3 L. Renal restriction diet once patient is able to tolerate p.o. Limit fluid to 1 L a day. Avoid NSAID. Status adjustment to GFR. Epogen subcutaneous. Check phosphorus, adjust phosphorus binders. Thank you for consultation, any question please call [phone] at [phone] [facility] #: [id number] END OF REPORT [id number] 09:11:00 [facility] [facility] ([facility]) Cardiology Consultation REPORT#:[id number] REPORT STATUS: Signed REPORT INITIALIZATION DATE:04/20/24 TIME:910 PATIENT: ELVIS FREEMAN UNIT #: [id number] ROOM/BED: [place] [id number] : 62 AGE: 64 SEX: F ATTEND: Mushtaq Mayorga MD ADM AUTHOR: Jeramie Forrest MD REPT SERVICE DT/TIME: 04/20/24 0911 * ALL edits or amendments must be made on the electronic/computer document * See Addendum History of Present Illness HPI HPI: 63-year-old female presenting today with a chief complaint of shortness of breath and abdominal distention. EMS was called. They found her in A-fib with a heart rate of 180. She was also hypoxic to 79%, hypotensive with a blood pressure of 89/45. They gave her Cardizem with slight improvement in rate to 140s. She remained hypotensive. They called for verbal orders and I recommended that she be placed on CPAP and given 100 cc bolus if needed after that she could be given Levophed. She received 100 cc bolus and placed on CPAP. She is a ESRD patient on Tuesday dialysis still making urine. She went to her last session and had a full session. She reports that today she was having difficulty breathing and felt that her abdomen was distended. She also has some chest heaviness as well as palpitations. She called EMS for that. She denies any fevers, chills, nausea, vomiting, abdominal pain, diarrhea, constipation, dysuria, flank pain, rash. Reports lower extremity edema.Additionally patient reports that she was recently discharged about a week ago from [facility]. She had been there for 3 weeks under treatment for same reasons. At time of my examination patient was still complaining of shortness of breath. She was on supplemental oxygen. Denies any active chest pain. She says she has history of CAD and may have had a stent put in but is unclear exactly about her. Patient was also accompanied by her family Review of system: Review system is negative except HPI History - Adult longitudinal Past medical history: Reports: Atrial fibrillation, Coronary artery disease, Kidney disease/stones. Additional surgical history: Reviewed. Family history: Denies: CAD < 40 yrs old. Additional family history: Noncontributory. Smoking status for patients 13 years old or older: Never Smoker Allergies: Coded Allergies: No Known Allergies (04/19/24) Objective General VS/I O: Vital Signs: Date Time Temp Pulse Resp B/P B/P Pulse O2 O2 Flow FiO2 Mean Ox Delivery Rate 04/20 0751 97.7 04/20 0500 75 23 125/75 95 100 04/20 0400 74 22 134/84 101 100 04/20 0331 97.9 04/20 0300 73 15 122/59 85 97 04/20 0200 73 15 105/55 75 90 04/20 0100 74 23 102/57 77 89 04/20 0000 75 25 106/54 76 89 04/19 2300 78 22 113/73 88 100 04/19 2201 79 32 109/58 71 98 04/19 2117 98.6 80 19 121/66 100 Nasal 4 cannula 04/19 2114 80 26 121/66 88 100 04/19 2100 81 27 134/61 90 100 04/19 2045 80 33 142/70 97 100 04/19 2030 80 38 125/69 93 100 04/19 2015 80 33 132/73 98 100 04/19 2004 98.2 04/19 2001 82 29 168/66 95 97 04/19 1946 82 35 135/76 91 04/19 1930 81 22 153/71 102 82 04/19 1915 85 21 144/75 98 92 04/19 1900 83 20 154/99 120 98 04/19 1815 86 22 132/72 94 04/19 1801 84 26 133/69 94 04/19 1750 98.2 86 23 175/95 Nasal 4 cannula 04/19 1745 124 34 175/94 126 04/19 1730 126 28 106/74 79 78 04/19 1724 90 11 109/65 84 100 04/19 1720 3 04/19 1640 87 17 132/71 94 96 04/19 1636 86 18 134/73 97 94 04/19 1630 87 18 127/74 96 95 04/19 1626 86 18 133/71 94 95 04/19 1620 88 129/69 87 93 04/19 1616 19 04/19 1615 88 128/65 90 93 04/19 1612 18 04/19 1610 91 120/72 92 95 04/19 1605 89 17 129/70 92 93 04/19 1600 89 23 121/66 88 94 04/19 1556 90 22 120/64 86 94 04/19 1551 91 22 122/85 97 95 04/19 1546 89 16 108/75 88 93 04/19 1541 90 14 129/68 92 94 04/19 1535 92 138/71 98 94 04/19 1530 93 152/78 109 95 04/19 1526 93 161/90 113 97 04/19 1520 92 18 138/73 94 99 Nasal 4 cannula 04/19 1515 94 22 127/64 86 97 04/19 1511 93 128/72 93 98 04/19 1507 21 04/19 1506 93 142/77 99 100 04/19 1500 93 21 152/77 107 100 04/19 1456 21 04/19 1455 89 162/90 120 97 04/19 1450 92 21 164/94 122 98 04/19 1446 21 04/19 1445 93 156/85 114 100 04/19 1441 93 20 156/81 108 100 04/19 1435 94 20 122/89 102 99 04/19 1430 101 21 91 Nasal 6 cannula 04/19 1425 94 145/83 107 100 04/19 1420 93 160/71 108 98 04/19 1419 20 04/19 1416 101 153/78 104 100 04/19 1411 143 22 134/86 103 96 04/19 1406 20 04/19 1405 133 105/73 86 99 04/19 1401 134 23 139/78 90 91 04/19 1355 150 18 157/79 109 04/19 1351 157 117/50 72 99 04/19 1346 136 19 156/85 109 79 04/19 1340 140 110/92 98 98 04/19 1335 159 112/77 90 100 04/19 1330 111 96/53 66 94 04/19 1325 95 Nasal 6 cannula 04/19 1300 140 88/51 63 04/19 1245 140 86/50 62 04/19 1230 BiPAP 04/19 1230 137 74/41 52 04/19 1230 99 BiPAP 04/19 1223 102 92 60 04/19 1223 92 BiPAP 60 04/19 1217 97.3 137 16 119/71 87 99 BiPAP 24 hour I O ending at 0700: 04/20 0700 04/19 1900 Intake Total 500.00 Output Total 2500 Balance -2000.00 Intake, IV 500.00 Number 1 Bowel Movements Output, 2500 Hemodialysis Patient 87.2 kg Weight Weight Bed scale Measurement Method PATIENT WEIGHT: Weight (lb): Weight (oz): Weight (kg): 87.200 Medications: Active Meds + DC'd Last 24 Hrs Atorvastatin Calcium (LIPITOR) 40 MG BEDTIME PO Azithromycin (ZITHROMAX) 500 MG DAILY PO Clopidogrel Bisulfate (Plavix) 75 MG DAILY PO Ezetimibe (ZETIA) 10 MG DAILY PO Furosemide (LASIX) 60 MG BID 9A 5P IV Polyethylene Glycol (MIRALAX) 17 GM DAILY PO Dextrose (GLUCOSE) 4 GM ASDIR PRN PO Dextrose/Water (DEXTROSE 10% IN WATER 250 ML) 250 ML ASDIR IV Glucagon (GLUCAGON) 1 MG ASDIR PRN IM Amiodarone HCl (Nexterone 360 MG/200 Ml Bag) 200 ML ASDIR IV (CKD) Apixaban (ELIQUIS) 5 MG Q12HR PO (CAN) Carvedilol (COREG) 3.125 MG BID PO (CAN) Gabapentin (NEURONTIN) 200 MG BID PO Insulin Human Lispro (Admelog) 0 AC HS SUBQ Melatonin (Melatonin) 5 MG BEDTIME PO Bisacodyl (DULCOLAX) 10 MG DAILY PRN PRN RECTAL Azithromycin (ZITHROMAX) 500 MG Q24H IV (DC) Sodium Chloride (0.9% Sodium Chloride) 250 ML Vancomycin HCl (Vancomycin HCl) 1,500 MG ONCE ONE IV (DC) Sodium Chloride (0.9% Sodium Chloride) 250 ML Miscellaneous Information (VANCOMYCIN PHARMACY TO DOSE) 1 EACH ASDIR IV Heparin Sodium (HEPARIN SODIUM) 3,600 UNITS ASDIR PRN IV Perflutren Lipid Microsphere (DEFINITY) 2 ML ONCE PRN IV (CKD) Sodium Chloride (0.9% Sodium Chloride) 50 ML .STK-MED ONE IV (DC) Sodium Chloride (0.9% Sodium Chloride) 2,000 ML .Q24H PRN IV Albumin Human (ALBUMINAR-25% 12.5 GM/50 ML) 25 GM BOLUS PRN IV Mannitol (MANNITOL 25%) 12.5 GM BOLUS PRN IV Amiodarone HCl (Nexterone 360 MG/200 Ml Bag) 200 ML X1ED STA IV (DC) Amiodarone HCl (Nexterone 150 MG/100 Ml Bag) 100 ML X1ED STA IV (DC) Norepinephrine Bitartrate (Levophed 16 MG/250 ML NS) 250 ML X1ED STA IV Cefepime HCl (MAXIPIME) 1 GM X1ED STA IV Sodium Chloride (0.9% Sodium Chloride) 50 ML Metronidazole/Sodium Chloride (metroNIDAZOLE 500MG / 100 MLNS) 100 ML X1ED STA IV (DC) Sodium Chloride (0.9% Sodium Chloride) 1,400 ML X1ED STA IV (DC) Free Text Obj Notes Free Text Obj Notes: GENERAL: Well developed, comfortable, in no distress HEENT: Normocephalic, atraumatic NECK: JVP not raised, no carotid bruit CHEST: Normal shape and contour LUNGS: Equal air entry bilaterally, normal vesicular breathing HEART: Irregular heart rate ABDOMEN: Soft, lax, non-tender, non-distended PERIPHERAL PULSES: 2+ dorsalis pedis pulses EXTREMITIES: No edema, no clubbing or cyanosis NEUROLOGIC:, no gross motor or sensory deficits Diagnosis, Assessment Plan Free Text DxA P Notes Free Text DxA P Notes: Acute on chronic HFpEF Atrial fibrillation with rapid ventricular CAD Pericardial effusion Anasarca End-stage renal disease on hemodialysis Continue on IV diuresis. Patient still makes some urine. Continue on Plavix. Transition to heparin/Lovenox while inpatient. Continue amiodarone drip for now. Nephrology is following. Check daily weight. Echo reviewed. Will order follow-up echocardiogram. Continue on high-dose statin. Further recommendation on clinical improvement. Xray reviewed Daily weight Monitor I/O Beta blockers Further management as per Echo report and clinical improvement Thank you for the consult at 1929 Addendum 1: 04/29/24 193 by Jeramie Forrest MD NSTEMI type II. Patient actively denies any chest pain. States she had a coronary intervention. Echo shows preserved EF. In absence of any active chest pain no indication for ischemic workup. at 1936 RPT #: [id number] END OF REPORT [id number] 20:01:00 [facility] ([facility]) Pharmacy Prog.Note-Vancomycin REPORT#:[id number] REPORT STATUS: Signed REPORT INITIALIZATION DATE:04/19/24 TIME:2000 PATIENT: ELVIS FREEMAN UNIT #: [id number] ROOM/BED: [place] [address] : 61 AGE: 63 SEX: F ATTEND: Mushtaq Mayorga MD ADM AUTHOR: Jenny Ariza RP REPT SERVICE DT/TIME: 04/19/242000 * ALL edits or amendments must be made on the electronic/computer document * Vancomycin Vancomycin Medication Therapy Goal: AUC 400-600 mg*hr/L Indication for treatment: HOSPITAL ACQUIRED PNEUMONIA VS and I/O: Vital Signs Date Temp Pulse Resp B/P B/P Mean Pulse Ox FiO2 04/19 36.3 84-159 11-34 74-175/41-94 52-126 78-100 60 Labs: Laboratory Test : 04/19 1234 Chemistry BUN (7 - 18 MG/DL) 28 H Creatinine (0.6 - 1.0 MG/DL) 4.8 H Hematology WBC (3.5 - 11.0 K/mm3) 11.5 H Microbiology: 04/19 1825 NASAL: MRSA Screen - RECD 04/19 1235 BLOOD: Blood Culture - RECD 04/19 1234 BLOOD: Blood Culture - RECD Treatment plan: consult, initiation of therapy Rationale: 63 y/o female presenting today with a chief complaint of shortness of breath and abdominal distention. ESRD patient on Tuesday dialysis still making urine. Pharmacy consulted to adjust and monitor vancomycin to treat HAP by Dr. Mayorga. Today is day 1 of therapy. Labs: Wt: 87.2 kg Ht: 157.48 cm WBC: 11.5 k/mm3 Scr: 4.8 mg/dl C S: Blood pending Nasal: pending Other current abx: Azithromycin 500mg q24h Plan: Patient received vancomycin [id number] one time dose on 04/19 at 1915. Due to current renal status will receive a vancomycin level on 04/20 with morning labs to assess current regimen. Thank you for the consult. Pharmacy to continue to follow. at 2001 RPT #: [id number] END OF REPORT [id number] 17:09:00 [facility] ([facility]) Hospitalist History Physical REPORT#:[id number] REPORT STATUS: Signed REPORT INITIALIZATION DATE:04/19/24 TIME:1708 PATIENT: ELVIS FREEMAN UNIT #: [id number] ROOM/BED: [place] [address] : 61 AGE: 63 SEX: F ATTEND: Mushtaq Mayorga MD ADM AUTHOR: Mushtaq Mayorga MD REPT SERVICE DT/TIME: 04/19/24 5727 * ALL edits or amendments must be made on the electronic/computer document * History of Present Illness HPI Chief complaint: Sudden onset shortness of breath PCP: PCP: Yaneth Hposon MD HPI: This is a 63-year-old female presenting today with a chief complaint of shortness of breath and abdominal distention. EMS was called. They found her in A-fib with a heart rate of 180. She was also hypoxic to 79%, hypotensive with a blood pressure of 89/45. They gave her Cardizem with slight improvement in rate to 140s. She remained hypotensive. They called for verbal orders and I recommended that she be placed on CPAP and given 100 cc bolus if needed after that she could be given Levophed. She received 100 cc bolus and placed on CPAP. She is a ESRD patient on Tuesday dialysis still making urine. She went to her last session and had a full session. She reports that today she was having difficulty breathing and felt that her abdomen was distended. She also has some chest heaviness as well as palpitations. She called EMS for that. She denies any fevers, chills, nausea, vomiting, abdominal pain, diarrhea, constipation, dysuria, flank pain, rash. Reports lower extremity edema. Additionally patient reports that she was recently discharged about a week ago from [facility]. She had been there for 3 weeks under treatment for same reasons. She will had a possible ablation done to the heart. Patient has a hospital monitor. History Past medical history: Reports: Kidney disease/stones. Additional surgical history: Reviewed. Additional family history: Noncontributory. Smoking status for patients 13 years old or older: Never Smoker Medication/Allergy-Vaccine Hx Allergies: Coded Allergies: No Known Allergies (04/19/24) Review of Systems Free Text ROS Notes Free Text ROS Notes: Patient reports shortness of breath, chest pressure, palpitations, edema and abdominal distention. Denies nausea, vomiting, abdominal pain, dizziness and syncope. Objective General VS/I O: Vital Signs: Date Time Temp Pulse Resp B/P B/P Pulse O2 O2 Flow FiO2 Mean Ox Delivery Rate 04/19 1640 87 17 132/71 94 96 04/19 1636 86 18 134/73 97 94 04/19 1630 87 18 127/74 96 95 04/19 1626 86 18 133/71 94 95 04/19 1620 88 129/69 87 93 04/19 1616 19 04/19 1615 88 128/65 90 93 04/19 1612 18 04/19 1610 91 120/72 92 95 04/19 1605 89 17 129/70 92 93 04/19 1600 89 23 121/66 88 94 04/19 1556 90 22 120/64 86 94 04/19 1551 91 22 122/85 97 95 04/19 1546 89 16 108/75 88 93 04/19 1541 90 14 129/68 92 94 04/19 1535 92 138/71 98 94 04/19 1530 93 152/78 109 95 04/19 1526 93 161/90 113 97 04/19 1520 92 18 138/73 94 99 Nasal 4 cannula 04/19 1515 94 22 127/64 86 97 04/19 1511 93 128/72 93 98 04/19 1507 21 04/19 1506 93 142/77 99 100 04/19 1500 93 21 152/77 107 100 04/19 1456 21 04/19 1455 89 162/90 120 97 04/19 1450 92 21 164/94 122 98 04/19 1446 21 04/19 1445 93 156/85 114 100 04/19 1441 93 20 156/81 108 100 04/19 1435 94 20 122/89 102 99 04/19 1430 101 21 91 Nasal 6 cannula 04/19 1425 94 145/83 107 100 04/19 1420 93 160/71 108 98 04/19 1419 20 04/19 1416 101 153/78 104 100 04/19 1411 143 22 134/86 103 96 04/19 1406 20 04/19 1405 133 105/73 86 99 04/19 1401 134 23 139/78 90 91 04/19 1355 150 18 157/79 109 04/19 1351 157 117/50 72 99 04/19 1346 136 19 156/85 109 79 04/19 1340 140 110/92 98 98 04/19 1335 159 112/77 90 100 04/19 1330 111 96/53 66 94 04/19 1325 95 Nasal 6 cannula 04/19 1230 BiPAP 04/19 1230 99 BiPAP 04/19 1223 102 92 60 04/19 1223 92 BiPAP 60 04/19 1217 36.3 137 16 119/71 87 99 BiPAP PATIENT WEIGHT: Weight (lb): Weight (oz): Weight (kg): 87.200 Medications: Active Meds + DC'd Last 24 Hrs Atorvastatin Calcium (LIPITOR) 40 MG BEDTIME PO Clopidogrel Bisulfate (Plavix) 75 MG DAILY PO Ezetimibe (ZETIA) 10 MG DAILY PO Apixaban (ELIQUIS) 5 MG Q12HR PO (CAN) Carvedilol (COREG) 3.125 MG BID PO (CAN) Gabapentin (NEURONTIN) 200 MG BID PO Insulin Human Lispro (Admelog) 0 AC HS SUBQ Perflutren Lipid Microsphere (DEFINITY) 2 ML ONCE PRN IV (CKD) Sodium Chloride (0.9% Sodium Chloride) 50 ML .STK-MED ONE IV (DC) Sodium Chloride (0.9% Sodium Chloride) 2,000 ML .Q24H PRN IV Albumin Human (ALBUMINAR-25% 12.5 GM/50 ML) 25 GM BOLUS PRN IV Mannitol (MANNITOL 25%) 12.5 GM BOLUS PRN IV Amiodarone HCl (Nexterone 360 MG/200 Ml Bag) 200 ML X1ED STA IV Amiodarone HCl (Nexterone 150 MG/100 Ml Bag) 100 ML X1ED STA IV (DC) Norepinephrine Bitartrate (Levophed 16 MG/250 ML NS) 250 ML X1ED STA IV Cefepime HCl (MAXIPIME) 1 GM X1ED STA IV Sodium Chloride (0.9% Sodium Chloride) 50 ML Metronidazole/Sodium Chloride (metroNIDAZOLE 500MG / 100 MLNS) 100 ML X1ED STA IV (DC) Sodium Chloride (0.9% Sodium Chloride) 1,400 ML X1ED STA IV (DC) Free Text Obj Notes Free Text Obj Notes: HEENT: Atraumatic CVS: S1-S2 audible Resp: Bilateral Rales Abdomen: Protuberant Extremities: Bilateral lower extremity pitting edema 3+ Neuro: AAO x 3, no focal deficits, moving all extremities Diagnosis, Assessment Plan Free Text DxA P Notes Free Text DxA P Notes: #Acute onset shortness of breath likely secondary to fluid overload rule out ACS versus pneumonia #ESRD on hemodialysis #Restless leg syndrome Admit to IMU Continue telemetry monitoring Continue amiodarone drip Resume clopidogrel Resume gabapentin Resume ezetimibe Send pneumonia workup Send blood culture Send sputum culture Continue IV antibiotics Nephrology consultation Cardiology consultation Trend troponin Continue cefepime add azithromycin and vancomycin UA negative for UTI Follow CT chest and CT AP #Chest pressure rule out ACS #Past medical history of CAD recent cath? #Past medical history A-fib with RVR status post ablation Echo Continue amnio drip Start clopidogrel Continue home meds if no contraindications Repeat INR in a.m. Full code Renal diet Out of bed to chair O2 by nasal cannula 2 L at 1803 RPT #: [id number] END OF REPORT [id number] 16:42:00 [facility]) Nephrology Consultation Note REPORT#:[id number] REPORT STATUS: Signed REPORT INITIALIZATION DATE:04/19/24 TIME:1641 PATIENT: ELVIS FREEMAN UNIT #: [id number] ROOM/BED: [place] [address] : 62 AGE: 63 SEX: F ATTEND: Mushtaq Mayorga MD ADM AUTHOR: Anson Duncan MD REPT SERVICE DT/TIME: 04/19/24 1642 * ALL edits or amendments must be made on the electronic/computer document * History of Present Illness Reason for consult: esrd PCP: PCP: Yaneth Hopson MD HPI: 63-year-old female with history of ESRD on hemodialysis, brought to the hospital with shortness of breath and abdominal distention. Patient is ESRD on hemodialysis, hemodialysis on Tuesday and Tuesday. Last dialysis on Tuesday. Patient today did not feel well, she complained of shortness of breath and abdominal distention. EMS was called. Patient found to have A-fib with RVR, hypotension. Labs reviewed. Chest x-ray reviewed. Renal consulted for inpatient dialysis. History - Adult longitudinal Past medical history: Reports: Kidney disease/stones. Additional surgical history: Reviewed. Additional family history: Noncontributory. Smoking status for patients 13 years old or older: Never Smoker Allergies: Coded Allergies: No Known Allergies (04/19/24) Review of Systems Free Text ROS Notes Free Text ROS Notes: 10 point review of system performed documented subjective, otherwise negative. Objective General VS/I O: Vital Signs: Date Time Temp Pulse Resp B/P B/P Pulse O2 O2 Flow FiO2 Mean Ox Delivery Rate 04/19 1520 99 Nasal 4 cannula 04/19 1430 Nasal 6 cannula 04/19 1340 140 110/92 98 98 04/19 1335 159 112/77 90 100 04/19 1330 111 96/53 66 94 04/19 1325 95 Nasal 6 cannula 04/19 1230 BiPAP 04/19 1230 99 BiPAP 04/19 1223 102 92 60 04/19 1223 92 BiPAP 60 04/19 1217 36.3 137 16 119/71 87 99 BiPAP PATIENT WEIGHT: Weight (lb): Weight (oz): Weight (kg): 87.200 Medications: Active Meds + DC'd Last 24 Hrs Sodium Chloride (0.9% Sodium Chloride) 2,000 ML .Q24H PRN IV Albumin Human (ALBUMINAR-25% 12.5 GM/50 ML) 25 GM BOLUS PRN IV Mannitol (MANNITOL 25%) 12.5 GM BOLUS PRN IV Amiodarone HCl (Nexterone 360 MG/200 Ml Bag) 200 ML X1ED STA IV Amiodarone HCl (Nexterone 150 MG/100 Ml Bag) 100 ML X1ED STA IV (DC) Norepinephrine Bitartrate (Levophed 16 MG/250 ML NS) 250 ML X1ED STA IV Cefepime HCl (MAXIPIME) 1 GM X1ED STA IV Sodium Chloride (0.9% Sodium Chloride) 50 ML Metronidazole/Sodium Chloride (metroNIDAZOLE 500MG / 100 MLNS) 100 ML X1ED STA IV (DC) Sodium Chloride (0.9% Sodium Chloride) 1,400 ML X1ED STA IV (DC) Physical Exam General appearance: awake Head/eyes: normocephalic ENT: normal nose Neck: no JVD C-Spine clearance: no midline tenderness Cardiovascular: normal heart sounds Respiratory: clear to auscultation Abdomen: soft Genitourinary: no bladder distention Extremities: no edema Musculoskeletal: no tendereness Neuro/EMBOSSING TOOLSETTER: alert, oriented X 3 Results Findings/Data: Laboratory Tests 11/21 1239 Blood Gas Puncture Site (DESCRIPTION ARTKIT) Right Brachial ABG pH (7.35 - 7.45 pH units) 7.48 H ABG pCO2 (35 - 45 mmHg) 36 ABG pO2 (80 - 100 mmHg) 225 H ABG PO2/FiO2 Ratio (200 mm/Hg) 375.0 ABG HCO3 (22.0 - 26.0 mmol/L) 25.9 ABG O2 Saturation (90 - 100 %) 100 ABG Base Excess (-3.0 - 3.0 mmol/L) 2.3 Jerome Test (POSITIVE Circ.CHK) No Hgb O2 Saturation (95.0 - 100.0 % (vanna)) 98.8 Carboxyhemoglobin (0.5 - 1.5 %) 0.8 Methemoglobin (0.0 - 0.0 %) 0.2 H Total Hemoglobin (12.0 - 18.0 GRAM/DL) 9.3 L O2 Delivery Device (Descript) BIPAP Vent Mode (Vent Mode Descript) ST FiO2 (21 - 100 % (calc)) 60 PEEP (0.0 - 99.9 cm H20) 6.0 Laboratory Tests 04/19 04/19 04/19 04/19 1450 1443 1234 1234 Chemistry Sodium (136 - 145 mmol/L) 134 L Potassium (3.4 - 5.0 mmol/L) 4.1 Chloride (98 - 107 mmol/L) 95 L Carbon Dioxide (21 - 32 mmol/L) 28 Anion Gap (4 - 15 GAP calc) 11 BUN (7 - 18 MG/DL) 28 H Creatinine (0.6 - 1.0 MG/DL) 4.8 H Glomerular Filtr Rate (>60 estGFR) 10 L Glucose (70 - 110 MG/DL) 152 H Lactic Acid (0.4 - 1.9 mmol/L) 2.5 *H 2.4 *H Calcium (8.5 - 10.1 MG/DL) 8.3 L Total Bilirubin (0.0 - 1.0 MG/DL) 0.8 Direct Bilirubin (0.0 - 0.3 MG/DL) 0.3 Indirect Bilirubin (0.2 - 1.2 MG/DL) 0.50 AST (15 - 37 Unit/L) 22 ALT (30 - 65 Unit/L) 28 L Total Alk Phosphatase (50 - 136 Unit/L) 84 Troponin I High Sens (0 - 54 ng/L) 691.5 *H 690.9 *H NT-Pro-B Natriuret Pep (0 - 100 PG/ML) 27310 H Total Protein (6.4 - 8.2 G/DL) 6.4 Albumin (3.4 - 5.0 G/DL) 2.0 L Lipase (13 - 75 Unit/L) 210 H Laboratory Tests 04/19 1233 Coagulation INR (0.8 - 1.2 INR Unit) 3.29 H PTT (Jordy) (26 - 35 SECONDS) 37.4 H PT Patient/Control Mix (9.3 - 12.9 SECONDS) 35.4 H Laboratory Tests 04/19 1234 Hematology WBC (3.5 - 11.0 K/mm3) 11.5 H RBC (4.70 - 6.10 M/mm3) 3.33 L Hgb (10.4 - 14.9 G/DL) 8.2 L Hct (31.5 - 44.1 %) 28.1 L MCV (84.5 - 98.6 Fl) 84.4 L MCH (27.0 - 34.2 pg) 24.6 L MCHC (31.5 - 34.0 G/DL) 29.2 L RDW (11.5 - 14.5 SD) 16.7 H Plt Count (150 - 450 K/mm3) 526 H MPV (7.0 - 10.5 fL) 10.30 Neut % (Auto) (40 - 76 %) 66.3 Lymph % (Auto) (20.5 - 51.1 %) 21.0 Woodson % (Auto) (1.7 - 9.3 %) 9.7 H Eos % (Auto) (0.0 - 6.0 %) 0.9 Baso % (Auto) (0.0 - 2.0 %) 1.2 Neut # (Auto) (1.8 - 7.6 K/mm3) 7.6 Lymph # (Auto) (0.6 - 3.2 K/mm3) 2.4 Woodson # (Auto) (0.3 - 1.1 K/mm3) 1.1 Eos # (Auto) (0.0 - 0.4 K/mm3) 0.1 Baso # (Auto) (0.0 - 0.1 K/mm3) 0.1 Abs Immat Gran (auto) (0.00 - 0.03 x10 3/uL) 0.10 H Immature Gran % (0.0 - 5.0 %) 0.9 Nucleated RBC % (0.0 - 1.0 /100WBC%) 0.2 Laboratory Tests 04/19 1234 Serology SARS-CoV-2 Ag (Rapid) (Negative) NEGATIVE Laboratory Tests 04/19 1234 Toxicology Ethyl Alcohol (0 - 10 MG/DL) < 3 Radiology data: Recent Impressions: RADIOLOGY - XR CHEST 1 V 04/19 1350 Report Impression - Status: SIGNED Entered: 04/19/2024 1412 IMPRESSION: Mild cardiomegaly with pulmonary venous congestion. Left basilar opacities may represent atelectasis and/or consolidation. Impression By: DeonnaABTristin Guadarrama M.D. Diagnosis, Assessment Plan Free Text DxA P Notes Free Text DxA P Notes: 1. ESRD on hemodialysis Hemodialysis on Tuesday and Tuesday. 2. Hyponatremia. 3. Fluid overload. 4. Chronic anemia. 5. A-fib with RVR. 6. Elevated troponin. Recommendations: Hemodialysis today. Target for removal 2 to 3 L. Renal restriction diet once patient is able to tolerate p.o. Limit fluid to 1 L a day. Avoid NSAID. Status adjustment to GFR. Epogen subcutaneous. Check phosphorus, adjust phosphorus binders. Thank you for consultation, any question please call [phone] at [phone] RPT #: [id number] END OF REPORT [id number] 13:15:00 [facility] ([facility]) EMERGENCY PROVIDER REPORT REPORT#:[id number] REPORT STATUS: Signed DATE:04/19/24 TIME:1315 PATIENT: ELVIS FREEMAN UNIT #: [id number] ROOM/BED: : 62 AGE: 63 SEX: F PCP PHYS: Yaneth Hopson MD SERVICE AUTHOR: Finesse Ortiz MD REP SRV REP SRV TM: 1315 * ALL edits or amendments must be made on the electronic/computer document * HPI-Dyspnea/Wheezing Free Text HPI Notes Free Text HPI Notes This is a 63-year-old female presenting today with a chief complaint of shortness of breath and abdominal distention. At the time this history was taken she was unable to provide any history given her medical condition. EMS was called. They found her in A-fib with a heart rate of 180. She was also hypoxic to 79%, hypotensive with a blood pressure of 89/45. They gave her Cardizem with slight improvement in rate to 140s. She remained hypotensive. They called for verbal orders and I recommended that she be placed on CPAP and given 100 cc bolus if needed after that she could be given Levophed. She received 100 cc bolus and placed on CPAP. She is a ESRD patient on Tuesday dialysis still making urine. She went to her last session and had a full session. She reports that today she was having difficulty breathing and felt that her abdomen was distended. She also has some chest heaviness as well as palpitations. She called EMS for that. She denies any fevers, chills, nausea, vomiting, abdominal pain, diarrhea, constipation, dysuria, flank pain, rash. Reports lower extremity edema. General Initial Greet Date/Time 04/19/24 1225 Presentation Chief Complaint Shortness of breath )( Sudden in Onset? Yes Sepsis Reassessment Reassessment Date of exam: 04/19/24 Time of exam: 1502 Vital Signs: Vital Signs: Date Time Temp Pulse Resp B/P B/P Pulse O2 O2 Flow FiO2 Mean Ox Delivery Rate 04/19 1520 99 Nasal 4 cannula 04/19 1430 Nasal 6 cannula 04/19 1340 140 110/92 98 98 04/19 1335 159 112/77 90 100 04/19 1330 111 96/53 66 94 04/19 1325 95 Nasal 6 cannula 04/19 1230 BiPAP 04/19 1230 99 BiPAP 04/19 1223 102 92 60 04/19 1223 92 BiPAP 60 04/19 1217 36.3 137 16 119/71 87 99 BiPAP Urine output: 200 Cardiac assessment: irregularly irregular, murmur, afib with pericardial friction rub Respiratory assessment: bibasilar rales Capillary refill assess: less than 2 sec Peripheral pulse: Palpated: R radial, L radial. Skin color: normal color, pink Shock index reviewed: yes Risk-Dyspnea/Wheezing Risk Stratification Coronary Artery Disease Risk factors reviewed Pulmonary Embolism Risk factors reviewed Review of Systems ROS Statements All systems rev neg except as marked. Free Text ROS Notes Free Text ROS Notes Shortness of breath Abdominal distention Past Medical History - Adult Stated Complaint A FIB RVR WITH HYPOTENSION Allergies Coded Allergies: No Known Allergies (04/19/24) Home Medications Reported Medications BUMETANIDE (BUMEX) 2 MG PO DAILY CLOPIDOGREL (PLAVIX) 75 MG PO DAILY APIXABAN (ELIQUIS) 5 MG PO BID EZETIMIBE 10 MG PO DAILY GABAPENTIN (NEURONTIN) 200 MG PO BID methocarbamoL (ROBAXIN) 1,000 MG PO QID PRN PRN MUSCLE SPASMS/PAIN INSULIN REGULAR (HumuLIN R) (Unknown Dose) SODIUM BICARBONATE 650 MG PO QID INSULIN NPH/REG INSULIN HUM (NovoLIN 70/30) 15 UNITS SUBQ BID ROSUVASTATIN 20 MG PO DAILY SEVELAMER CARBONATE (RENVELA) 800 MG PO TID MEALS Smoking status for patients 13 years old or older: Unknown,if ever smoked Physical Exam Vital Signs Vital Signs First Documented: Result Date Time Pulse Ox 99 04/19 1217 B/P 119/71 04/19 1217 B/P Mean 87 04/19 1217 O2 Delivery BiPAP 04/19 1217 Temp 36.3 04/19 1217 Pulse 137 04/19 1217 Resp 16 04/19 1217 FiO2 60 04/19 1223 O2 Flow Rate 6 04/19 1325 Last Documented: Result Date Time Pulse Ox 99 04/19 1520 O2 Delivery Nasal cannula 04/19 1520 O2 Flow Rate 4 04/19 1520 B/P 110/92 04/19 1340 B/P Mean 98 04/19 1340 Pulse 140 04/19 1340 FiO2 60 04/19 1223 Temp 36.3 04/19 1217 Resp 16 04/19 1217 Review of Vital Signs Reviewed, Vital signs abnormal Focused PE General/Const General/Const Awake, Alert, No acute distress, Well appearing, Well developed , Well hydrated, Well nourished, Cooperative, Not toxic appearing MS Neck Neck Atraumatic, Supple, No meningismus, Full range of motion, No adenopathy, No swelling, Non-tender, No midline vertebral tend, No masses, No crepitus, No JVD, No carotid bruit, Thyroid NL, No tracheal deviation Resp/Chest Text/Dict Notes Initially on CPAP Bibasilar Rales No retractions, breathing, increased respiratory rate Right tunneled dialysis line Cardiovascular Text/Dict Notes Irregularly irregular rhythm Tachycardia in the 140s 2+ pulses in all extremities Abdomen/GI Text/Dict Notes Abdomen distended Soft nontender no guarding no rebound no rigidity MS Lower Extrem Text/Dict Notes 2+ pitting edema in the bilateral lower extremities up to the mid tib-fib Neurologic Neurologic Oriented X3, Speech NL, No motor deficits, No sensory deficits, CN II - XII intact, Reflexes equal bilat, Cerebellar NL, Memory NL, Gait NL Interpretation Diagnostics Lab Results Interpretation Results Laboratory Tests 04/19/24 1234: [Embedded Image Not Available] Laboratory Tests: 04/19 04/19 04/19 1450 1443 1239 Blood Gas Puncture Site (DESCRIPTION ARTKIT) Right Brachial ABG pH (7.35 - 7.45 pH units) 7.48 H ABG pCO2 (35 - 45 mmHg) 36 ABG pO2 (80 - 100 mmHg) 225 H ABG PO2/FiO2 Ratio (200 mm/Hg) 375.0 ABG HCO3 (22.0 - 26.0 mmol/L) 25.9 ABG O2 Saturation (90 - 100 %) 100 ABG Base Excess (-3.0 - 3.0 mmol/L) 2.3 Jerome Test (POSITIVE Circ.CHK) No Hgb O2 Saturation (95.0 - 100.0 % (vanna)) 98.8 Carboxyhemoglobin (0.5 - 1.5 %) 0.8 Methemoglobin (0.0 - 0.0 %) 0.2 H Total Hemoglobin (12.0 - 18.0 GRAM/DL) 9.3 L O2 Delivery Device (Descript) BIPAP Vent Mode (Vent Mode Descript) ST FiO2 (21 - 100 % (calc)) 60 PEEP (0.0 - 99.9 cm H20) 6.0 Chemistry Lactic Acid (0.4 - 1.9 mmol/L) 2.5 *H Troponin I High Sens (0 - 54 ng/L) 691.5 *H 04/19 04/19 04/19 1234 1234 1233 Chemistry Sodium (136 - 145 mmol/L) 134 L Potassium (3.4 - 5.0 mmol/L) 4.1 Chloride (98 - 107 mmol/L) 95 L Carbon Dioxide (21 - 32 mmol/L) 28 Anion Gap (4 - 15 GAP calc) 11 BUN (7 - 18 MG/DL) 28 H Creatinine (0.6 - 1.0 MG/DL) 4.8 H Glomerular Filtr Rate (>60 estGFR) 10 L Glucose (70 - 110 MG/DL) 152 H Lactic Acid (0.4 - 1.9 mmol/L) 2.4 *H Calcium (8.5 - 10.1 MG/DL) 8.3 L Total Bilirubin (0.0 - 1.0 MG/DL) 0.8 Direct Bilirubin (0.0 - 0.3 MG/DL) 0.3 Indirect Bilirubin (0.2 - 1.2 MG/DL) 0.50 AST (15 - 37 Unit/L) 22 ALT (30 - 65 Unit/L) 28 L Total Alk Phosphatase (50 - 136 Unit/L) 84 Troponin I High Sens (0 - 54 ng/L) 690.9 *H NT-Pro-B Natriuret Pep (0 - 100 PG/ML) 20706 H Total Protein (6.4 - 8.2 G/DL) 6.4 Albumin (3.4 - 5.0 G/DL) 2.0 L Lipase (13 - 75 Unit/L) 210 H Coagulation INR (0.8 - 1.2 INR Unit) 3.29 H PTT ([place]) (26 - 35 SECONDS) 37.4 H PT Patient/Control Mix (9.3 - 12.9 SECONDS) 35.4 H Hematology WBC (3.5 - 11.0 K/mm3) 11.5 H RBC (4.70 - 6.10 M/mm3) 3.33 L Hgb (10.4 - 14.9 G/DL) 8.2 L Hct (31.5 - 44.1 %) 28.1 L MCV (84.5 - 98.6 Fl) 84.4 L MCH (27.0 - 34.2 pg) 24.6 L MCHC (31.5 - 34.0 G/DL) 29.2 L RDW (11.5 - 14.5 SD) 16.7 H Plt Count (150 - 450 K/mm3) 526 H MPV (7.0 - 10.5 fL) 10.30 Neut % (Auto) (40 - 76 %) 66.3 Lymph % (Auto) (20.5 - 51.1 %) 21.0 Woodson % (Auto) (1.7 - 9.3 %) 9.7 H Eos % (Auto) (0.0 - 6.0 %) 0.9 Baso % (Auto) (0.0 - 2.0 %) 1.2 Neut # (Auto) (1.8 - 7.6 K/mm3) 7.6 Lymph # (Auto) (0.6 - 3.2 K/mm3) 2.4 Woodson # (Auto) (0.3 - 1.1 K/mm3) 1.1 Eos # (Auto) (0.0 - 0.4 K/mm3) 0.1 Baso # (Auto) (0.0 - 0.1 K/mm3) 0.1 Abs Immat Gran (auto) (0.00 - 0.03 x10 3/uL) 0.10 H Immature Gran % (0.0 - 5.0 %) 0.9 Nucleated RBC % (0.0 - 1.0 /100WBC%) 0.2 Serology SARS-CoV-2 Ag (Rapid) (Negative) NEGATIVE Toxicology Ethyl Alcohol (0 - 10 MG/DL) < 3 Microbiology: Date/Time Procedure - Status Source Growth 04/19 1235 Blood Culture - RECD BLOOD 04/19 1234 Blood Culture - RECD BLOOD Recent Impressions: RADIOLOGY - XR CHEST 1 V 04/19 1350 Report Impression - Status: SIGNED Entered: 04/19/2024 1412 IMPRESSION: Mild cardiomegaly with pulmonary venous congestion. Left basilar opacities may represent atelectasis and/or consolidation. Impression By: Jono - Carlos Guadarrama M.D. Re-Evaluation MDM Free Text MDM Notes Free Text MDM Notes This is a 63-year-old female who presents today by EMS with shortness of breath. EMS found the patient to be in A-fib with RVR rates were in the 170s and she was hypotensive with a systolic of 89. She was hypoxic on room air to 79%. She received Cardizem prior to arrival and was placed on CPAP. EMS called for verbal orders. Instructed to place the patient on CPAP and given 100 cc bolus. Levophed as needed. On arrival here she received 100 cc bolus. She remained hypotensive on arrival. Initial ABG showed and respiratory exam supported taking her off CPAP. Placed on 6 lpm NC. She remained hypotensive and in A-fib in the 140s while here. She was placed on Levophed. She got for her 1400 cc of fluid based on her ideal body weight. Initial lactate elevated. White count is present. Synthetic dysfunction of the liver is also present. INR is elevated. Discussed with cardiology regarding elevated troponin and trend that is uptrending. also discussed INR with them. He recommended no heparin at this time continue to trend troponin. He is also aware of the pericardial effusion. Called nephrology who is aware that we have a ESRD patient with a pericardial effusion and volume overload on exam. They will dialyze. Patient was taken off of Levophed. No longer on any oxygen. On amnio drip. Sinus rhythm. )( Re-Evaluation/Progress #1 Time of Re-Eval 154 )( Re-Eval Status Improved Re-Eval Resp/Chest Breath sounds diminished, No wheezing, No respiratory distress, Rales present, No rhonchi Eval Following Treatment Condition improved, Nausea resolved, Vomiting resolved Pain Re-Evaluation Denies pain Exam Post Tx - General Active, Alert, Appears non-toxic, Appears well, Vital signs stable, Capillary refill normal, Hydration normal Exam Post Tx - Sys Review Abdomen soft, Abdomen nontender, Neurologic nonfocal, Mental status baseline Plan Post Re-Eval Plan admit Tissue Perfusion Reassessment Patient tissue perfusion reassessment completed. ED Course Medication(s) Ordered Medication(s) Ordered: Anti-Infective Agents Sig/Dirk Start time Last Medication Dose Route Stop Time Status Admin Cefepime HCl 1 GM X1ED STA 04/19 1230 AC 04/19 Sodium Chloride 50 ML IV 04/21 1429 1252 Metronidazole/Sodium 100 ML X1ED STA 04/19 1230 DC 04/19 Chloride IV 04/19 1329 1246 Autonomic Drugs Sig/Dirk Start time Last Medication Dose Route Stop Time Status Admin Norepinephrine 250 ML X1ED STA 04/19 1258 AC 04/19 Bitartrate IV 04/29 2257 1311 Blood Derivatives Sig/Dirk Start time Last Medication Dose Route Stop Time Status Admin Albumin Human 25 GM BOLUS PRN 04/19 1545 AC IV Cardiovascular Drugs Sig/Dirk Start time Last Medication Dose Route Stop Time Status Admin Amiodarone HCl 200 ML X1ED STA 04/19 1532 CKD IV 04/27 2331 Amiodarone HCl 100 ML X1ED STA 04/19 1339 DC 04/19 IV 04/19 1348 1343 Electrolytic, Caloric, And Ana Luisa Sig/Dirk Start time Last Medication Dose Route Stop Time Status Admin Mannitol 12.5 GM BOLUS PRN 04/19 1545 AC IV 05/19 1544 Sodium Chloride 2,000 ML .Q24H PRN 04/19 1545 PEND IV 04/20 1544 Sodium Chloride 1,400 ML X1ED STA 04/19 1225 DC 04/19 IV 04/19 1226 1246 Consultation Consultation Referral/Consult Name Anson Duncan MD Network Field Engineer Called Nephrology Network Field Engineer Discussed with energy consultant, Will see patient Requested Call Time 1554 Requested Call Date 04/19/24 Call Returned Time 1554 Call Returned Date 04/19/24 Free Text Consult Notes WILL SEE PATIENT. Differential Diagnosis )( Differential Diagnosis Acute coronary syndrome, Airway obstruction, Allergic reaction, Anxiety, Asthma, Bronchitis, Cardiogenic shock, Carbon monoxide poisoning, Congestive heart failure, COPD exacerbation, Dysrhythmia, Exercise- induced asthma, Foreign body airway, Hypertensive emergency, Hyperventilation, Inhalation injury, Myocardial infarction, Panic attack, Pericarditis, Pneumonia, Pneumothorax, PSVT, Pulmonary embolism, Respiratory failure, Respiratory insufficiency, Sepsis?, Septic shock?, Severe sepsis?, Upper resp infection, Vocal cord dysfunction MDM-Independent Interpretation My ECG Interpretation EKG performed on 1305. Interpreted by me ER physician. No prior to compare to. Rate is 118. Rhythm is A-fib. No ectopy. EKG also notable for low voltage QRS. Nonspecific T wave and ST segment findings. Nonspecific conduction delay. No ST segment elevations. No STEMI on EKG. Patient Discharge Departure Vital Signs/Condition Vital Signs First Documented: Result Date Time Pulse Ox 99 04/19 1217 B/P 119/71 04/19 1217 B/P Mean 87 04/19 1217 O2 Delivery BiPAP 04/19 1217 Temp 36.3 04/19 1217 Pulse 137 04/19 1217 Resp 16 04/19 1217 FiO2 60 04/19 1223 O2 Flow Rate 6 04/19 1325 Last Documented: Result Date Time Pulse Ox 99 04/19 1520 O2 Delivery Nasal cannula 04/19 1520 O2 Flow Rate 4 04/19 1520 B/P 110/92 04/19 1340 B/P Mean 98 04/19 1340 Pulse 140 04/19 1340 FiO2 60 04/19 1223 Temp 36.3 04/19 1217 Resp 16 04/19 1217 All vital signs available at the time of this entry have been reviewed. Condition Improved Clinical Impression Clinical Impression Primary Impression: Atrial fibrillation with rapid ventricular response Secondary Impressions: Abdominal distention, Hypotension, NSTEMI (non-ST elevated myocardial infarction), Pericardial effusion, Pulmonary edema, Shortness of breath, Volume overload Time of Impression 1510 Disposition Decision Hospitalize Hosp Physician Name Mushtaq Mayorga MD Hosp Physician Hospitalist Request Time 1542 Request Date 04/19/24 )( Accepts Hospitalization Yes )( Reason for Hospitalization AFIB, HYPOTENSION, VOLUME OVERLOAD, ESRD NEEDS DIALYSIS, PERICARDIAL EFFUSION )( Accepted Time 1542 )( Accepted Date 04/19/24 Call Information will see patient at 1550 RPT #: [id number] END OF [id number] 00:44:52Pending Results Health Maintenance Due Date Last Done Comments CT Colonography 1961 Colonoscopy 1961 Colorectal Cancer Screening 1961 FIT-DNA 1961 FIT 1961 FOBT 1961 Sigmoidoscopy 1961 Annual Physical 1964 Pneumococcal Vaccine: Pediatrics (0 to 5 Years) and At-Risk Patients (6 to 64 Years) (1 of 2 - PCV) 1967 Diabetes: Foot Exam 1971 Diabetes: Retinopathy Screening 1971 Hepatitis A Vaccines (1 of 2 - Risk 2-dose series) 1980 Pap Smear 1982 Cervical Cancer Screening 1991 HPV/Cotest 1991 Mammogram 2001 Zoster Vaccines (1 of 2) 2011 Diabetes: Urine Protein Screening 10/26/2018 10/26/2017 DTaP/Tdap/Td Vaccines (1 - Tdap) 01/10/2021 01/09/2021 Hepatitis B Vaccines (1 of 3 - Risk 3-dose series) 2021 Respiratory Syncytial Virus (RSV) or >=60 (1 - Risk 60-74 years 1-dose series) 2021 Influenza Vaccine (#1) 2024 3, 03/31/2020, 04/04/2018 Diabetes: Hemoglobin A1C 06/27/2024 024, 06/26/2021 Lipid Panel 03/27/2025 03/27/2024, 06/26/2021 HIB Vaccines Aged Out No longer eligi ble based on patient's age to complete this topic HPV Vaccines Aged Out No longer eligi ble based on patient's age to complete this topic IPV Vaccines Aged Out No longer eligi ble based on patient's age to complete this topic Meningococcal Vaccine Aged Out No kulwant rex eligible based on patient's age to complete this topic Rotavirus Vaccines Aged Out No longer eligible based on patient's age to complete this topic [id number] 00:44:52 [place] [id number] 00:44:52 [id number] 00:44:52* Auth/Cert (Routine) Specialty Diagnoses / Procedures Referred By Contac t Referred To Contact Diagnoses Heart block Procedures pending psc Yakov Cuadra MD [address] [place] [address] Phone: tel: fax: [facility] [place] [facility] (4 Cardiac Care Unit) [address] [place] [phone] Phone: tel: Referral ID Status Reason Start Date Expiration Date Visits Re quested Visits Authorized [id number] 1 1 [id number] 00:44:52Pending Results Health Maintenance Due Date Last Done Comments CT Colonography 1961 Colonoscopy 1961 Colorectal Cancer Screening 1961 FIT-DNA 1961 FIT 1961 FOBT 1961 Sigmoidoscopy 1961 Annual Physical 1964 Pneumococcal Vaccine: Pediatrics (0 to 5 Years) and At-Risk Patients (6 to 64 Years) (1 of 2 - PCV) 1967 Diabetes: Foot Exam 1971 Diabetes: Retinopathy Screening 1971 Hepatitis A Vaccines (1 of 2 - Risk 2-dose series) 1980 Pap Smear 1982 Cervical Cancer Screening 1991 HPV/Cotest 1991 Mammogram 2001 Zoster Vaccines (1 of 2) 2011 Diabetes: Urine Protein Screening 10/26/2018 10/26/2017 DTaP/Tdap/Td Vaccines (1 - Tdap) 01/10/2021 01/09/2021 Hepatitis B Vaccines (1 of 3 - Risk 3-dose series) 2021 Respiratory Syncytial Virus (RSV) or >=60 (1 - Risk 60-74 years 1-dose series) 2021 Influenza Vaccine (#1) 2024 3, 03/31/2020, 04/04/2018 Diabetes: Hemoglobin A1C 06/27/2024 024, 06/26/2021 Lipid Panel 03/27/2025 03/27/2024, 06/26/2021 HIB Vaccines Aged Out No longer eligi ble based on patient's age to complete this topic HPV Vaccines Aged Out No longer eligi ble based on patient's age to complete this topic IPV Vaccines Aged Out No longer eligi ble based on patient's age to complete this topic Meningococcal Vaccine Aged Out No kulwant rex eligible based on patient's age to complete this topic Rotavirus Vaccines Aged Out No longer eligible based on patient's age to complete this topic [facility] [id number] 00:44:52 [facility] [id number] 00:44:52 [facility] [id number] 00:44:52* Auth/Cert (Routine) Specialty Diagnoses / Procedures Referred By Conthorace t Referred To Contact Diagnoses Heart block Procedures pending psc Yakov Cuadra MD [address] [facility] [address] [place] [address], [place] [address] Phone: tel: fax: [facility] [place] [facility] (4 Cardiac Care Unit) [address] [place] [address] Phone: tel: Referral ID Status Reason Start Date Expiration Date Visits Re quested Visits Authorized [id number] 1 1 Weston DanielsSwqpbvh1684-26-82 16:56:07* Cardiac Stress Testing (Routine) - Pending Review Specialty Diagnoses / Procedures Referred By Contac t Referred To Contact Cardiology Diagnoses Atrial fibrillation, unspecified type (CMS/HCC) (HCC) Procedures Cardiac event monitor TN XTRNL PT ACTIVTD ECG DWNLD W/R&I </30 DAYS TN XTRNL PT ACTIVATED ECG RECORD MONITOR 30 DAYS TN XTRNL PT ACTIVATED ECG REC DWNLD 30 DAYS TN XTRNL PT ACTIV ECG TRANSMIS W/R&I </30 DAYS Elisha Ratliff MD [address] [place] [address] Phone: tel: fax:[phone] Referral ID Status Reason Start Date Expiration Date V isits Requested Visits Authorized [id number] Pending Review 04/11/2024 10/08/2024 1 1 L PRESSER* Consultation (Routine) - Pending Review Specialty Diagnoses / Procedures Referred By Contac t Referred To Contact Nephrology Diagnoses GUIL[facility]ME (acute kidney injury) ([facility] Procedures TN OFFICE/OUTPATIENT NEW HIGH MDM 60-74 MINUTES Elisha Ratliff MD [address] [place] [address] Phone: tel: fax: [place] [address] Phone: tel: Referral ID Status Reason Start Date Expiration Date Visits Requested Visits Authorized [id number] Pending Review Specialty Services Required 10/08/2024 1 1 L PRESSER* Consultation (Routine) - Pending Review Specialty Diagnoses / Procedures Referred By Contac t Referred To Contact Cardiology Diagnoses Heart block Procedures TN OFFICE/OUTPATIENT NEW HIGH MDM 60-74 MINUTES Elisha Ratliff MD [address] [place] [address] Phone: tel: fax: [place] [address] Phone: tel: Referral ID Status Reason Start Date Expiration Date Visits Requested Visits Authorized [id number] Pending Review Specialty Services Required 4 10/08/2024 1 1 L PRESSER* Consultation (Routine) - Pending Review Specialty Diagnoses / Procedures Referred By Contac t Referred To Contact Cardiology Diagnoses ST elevation myocardial infarction (STEMI) involving other coronary artery of inferior wall (HCC) Procedures TN OFFICE/OUTPATIENT NEW HIGH MDM 60-74 MINUTES Elisha Ratliff MD [address] [place] [address] Phone: tel: fax: [place] [address] Phone: tel: Referral ID Status Reason Start Date Expiration Date Visits Requested Visits Authorized [id number] Pending Review Specialty Services Required 4 10/08/2024 1 1 L PRESSER* Consultation (Routine) - Pending Review Specialty Diagnoses / Procedures Referred By Contac t Referred To Contact Cardiac Rehabilitation Diagnoses ST elevation myocardial infarction (STEMI) involving other coronary artery of inferior wall (HCC) Procedures TN OFFICE/OUTPATIENT NEW HIGH MDM 60-74 MINUTES Carla Gayle MD [address] [address] Phone: tel: fax: [address] [place] [address] Phone: tel: Referral ID Status Reason Start Date Expiration Date Visits Requested Visits Authorized [id number] Pending Review Specialty Services Required 04/04/2024 10/01/2024 36 36 Scheduling Instructions [facility] [phone] F. [phone] L PRESSER* Consultation (Routine) - Pending Review Specialty Diagnoses / Procedures Referred By Contac t Referred To Contact Cardiac Rehabilitation Diagnoses ST elevation myocardial infarction (STEMI) of inferior wall (HCC) Procedures TN OFFICE/OUTPATIENT NEW HIGH MDM 60-74 MINUTES Yakov Cuadra MD [address] [facility] [address] [place] [address] Phone: tel: fax: [facility] [facility] (Cardiac Rehab) [address] [facility] [address] [place] [address] Phone: tel: fax: Referral ID Status Reason Start Date Expiration Date Visits Requested Visits Authorized [id number] Pending Review Specialty Services Required 09/25/2024 36 36 [facility] HospitalVqjyizr5796-55-34 16:56:07* * Auth/Cert (Routine) Specialty Diagnoses / Procedures Referred By Conthorace t Referred To Contact Diagnoses Heart block Procedures pending psc Yakov Cuadra MD [address] [facility] [address] [place] [address] Phone: tel: fax: [facility] [place] [facility] (4 Cardiac Care Unit) [address] [place] [phone] Phone: tel: Referral ID Status Reason Start Date Expiration Date Visits Re quested Visits Authorized [id number] [address] [place], [place] [address]-11-13 16:56:07* Calculated C-SSRS Risk Score (Lifetime/Recent) Answer Date of Assessment Author No Risk Indicated 03/27/2024 4:35 AM Brian Aggarwal RN * Bertie Suicide Severity Rating Scale (Screener/Recent Self-Report) Question Answer Date of Assessment Author 1. Wish to be (Past 1 Month) No 024 4:35 AM Richard Aggarwal RN 2. Non-Specific Active Suici arron Thoughts (Past 1 Month) No 03/27/2024 4:35 AM Richard Aggarwal RN 6. Suicidal Behavior (Lifetime) No 4:35 AM Richard Aggarwal RN [id number] 16:56:07* Leonel Hopson LMSW - 04/11/2024 3:08 PM WHEEL PRESSER RCA to f/u with patient regarding assistance with the Affordable [employer] insurance coverage. L PRESSER * Leonel Hopson LMSW - 04/11/2024 2:03 PM WHEEL PRESSER Patient is currently unfunded. CM reached out to FC to assess for possible Affordable [employer] insurance coverage awaiting update. CM met with patient/spouse and son at bedside provided [facility], [facility] low cost drug list and [facility] indigent care program. Explained how to complete application ect. Patient/family verbalized understanding,CM discussed case with pharmacy/primary team following for low cost drugs. Pt to discharge today after completion of dialysis. Patient to start outpt HD at [facility] as scheduled. L PRESSER * Kiya Daniel OT - 04/11/2024 12:24 PM WHEEL PRESSER Occupational Therapy OT Encounter Note Patient Name: Elvis Freeman Today's Date: 04/11/2024 Missed Treatment Time and Reason Family/Caregiver Present: Yes Others Present: son OT attempted for tx. H/D at bedside. OT to F/U as time permits. Kiya Daniel OT L PRESSER * Alyson Gary PT - 04/11/2024 11:50 AM WHEEL PRESSER Encounter Note Patient Name: Elvis Freeman Today's Date: 04/11/2024 Missed Treatment Time and Reason Others Present: Son present Pt currently on HD. PT will follow up as she is available. Alyson Gary PT L PRESSER * Liberty Christianson LMSW - 04/11/2024 9:05 AM WHEEL PRESSER ALEX spoke to Jasmeet at [facility] to verify HD chair. Jasmeet states pt can start tomorrow. [facility] [address] [place] [place] [phone] Start date : 04/12 @ 12:30 TTS Welcome letter provided to patient and copy in chart. L PRESSER * Itz Paez MD - 04/11/2024 7:33 AM WHEEL PRESSER ME Nephrology Progress Note Chief Complaint: had concerns including Fall. Nephrology following for: Acute Kidney Injury Assessment & Plan: Elvis Freeman is a 63 y/o F with PMH of DM who presented via EMS after being found unresponsive by family. She was noted to have complete heart block with inferior STEMI now s/p placement of temporary pacer and LHC w/ stent x 1 on 03/27. Nephrology is following for acute renal failure requiring CRRT. Off CRRT, now transitioning to HD. Initially GUILHERME requiring dialysis, however has now progressed to ESRD s/p TDC on 04/06. Recommendations: - HD today - Can start Bumex 2mg BID - Strict I&Os - Patient has received outpatient HD chair. - Continued optimization of blood sugar ESRD GUILHERME requiring dialysis, non-recovered - Likely ischemic ATN in setting of hemodynamic instability, sepsis, and possible underlying chronic kidney disease - Unknown Cr baseline - Cr 2.77 on admission, peaked at 5.88 on 03/29 - Renal U/S showed bilateral parenchymal disease - Guevara in place, patient remains anuric - On CRRT as of 03/29, aiming for net even initially - CRRT stopped in evening 04/02 - Cr 1.67 -> 2.20 after stopping CRRT, electrolytes stable - Cr 4.51 as of 04/05 - Patient will need HD chair set up outpatient -> [facility] not financially cleared for HD chair. - s/p PUF 04/03 and 04/07, HD 04/04, 04/05 and 04/10 Volume status: - Some slight signs of volume overload with congestive hepatopathy, pleural effusions - Received PUF. Now switched with to HD with volume removal - Will manage with HD Hypoalbuminemia - Albumin: 1.9 - Urine protein >300 - Albumin/Globulin ratio: 0.45 Electrolytes: - Stable and appropriate - Optimize with PUTTYING AND CALKING SUPERVISOR Acid-Base: - Bicarb 24.3 Normocytic anemia: - Hgb 6.8 -> 8.9 post-transfusion 03/28 - Hgb now stable at 8.6 - Iron: 18 - Ferritin 663-> 118.8 Case discussed with attending. Itz Paez MD April 11, 2024 7:33 AM Objective: Vitals: 04/11/24 0200 04/11/24 0300 04/11/24 0400 04/11/24 0500 BP: 101/60 107/59 109/54 108/58 Pulse: 82 81 82 85 Resp: 17 16 20 21 Temp: SpO2: 95% 94% 97% 96% Intake/Output Summary (Last 24 hours) at 04/11/2024 0733 Last data filed at 04/10/2024 1700 Gross per 24 hour Intake 1140 ml Output -- Net 1140 ml Physical Exam: Constitutional: General: She is not in acute distress. Appearance: Normal appearance. She is not ill-appearing. HENT: Head: Normocephalic and atraumatic. Right Ear: External ear normal. Left Ear: External ear normal. Cardiovascular: Rate and Rhythm: Normal rate and regular rhythm. Pulses: Normal pulses. Heart sounds: Normal heart sounds. Pulmonary: Effort: Pulmonary effort is normal. No respiratory distress. Breath sounds: Normal breath sounds. Abdominal: General: There is no distension. Palpations: Abdomen is soft. Tenderness: There is no abdominal tenderness. Musculoskeletal: General: Normal range of motion. Right lower leg: No edema. Left lower leg: No edema. Skin: General: Skin is warm. Coloration: Skin is not jaundiced. Findings: No bruising. Neurological: General: No focal deficit present. Mental Status: She is alert and oriented to person, place, and time. Dialysis Access: Right IJ Medications: Scheduled: apixaban, 2.5 mg, Oral, q12h DIRK aspirin EC, 162 mg, Oral, q8h bisacodyl, 10 mg, Rectal, Daily calcium gluconate, 2 g, Intravenous, Once clopidogrel, 75 mg, Oral, Daily Ensure Enlive, 1 Container, Oral, BID gabapentin, 200 mg, Oral, BID insulin glargine, 23 Units, Subcutaneous, Daily lidocaine, 1 patch, Apply externally, Daily pantoprazole, 40 mg, Intravenous, q24h DIRK polyethylene glycol (PEG) 3350, 17 g, Oral, Daily sennosides, 2 tablet, Oral, Daily sodium chloride, 500 mL, Intravenous, Once sodium zirconium cyclosilicate, 5 g, Oral, Daily Infusions: Data:Labs and imaging reviewed. Lab Results Component Value Date BUN 55 (H) 04/11/2024 Results from last 7 daysLab Units 04/11/24 0220 04/10/24 1435 04/10/24 0416 CREATININE mg/dL 5.53* 4.91* 4.75* Electrolytes:LYTES - Na/K/Cl/CO2: 127*/5.3*/96*/20.4 (04/11 022) Lab ResultsComponent Value Date Calcium Lvl 8.9 04/11/2024 Phosphorus Lvl 5.9 (H) 04/07/2024 Lab ResultsComponent Value Date Hgb 7.8 (L) 04/11/2024 Cosigned by Eliu Kapadia MD at 04/11/2024 2:03 PM WHEEL PRESSER L PRESSER L PRESSER Associated attestation - Eliu Kapadia MD - 04/11/2024 2:03 PM WHEEL PRESSER I have seen and examined the patient with the Renal Team. We have reviewed and discussed the case extensively. I agree with the findings and note. We will follow closely. Rohini Harryending * Elisha Interiano MD - 04/11/2024 6:43 AM WHEEL PRESSER [facility] Progress Note Admission Date: 03/27/2024 Hospital Day: 15 Problem List Principal Problem: ST elevation myocardial infarction (STEMI) of inferior wall (HCC) Active Problems: Heart block Hyperglycemia due to diabetes mellitus (CMS/HCC) (HCC) On mechanically assisted ventilation (CMS/HCC) (HCC) Fall GUILHERME (acute kidney injury) (HCC) Acute respiratory alkalosis Anemia of chronic disease Toxic metabolic encephalopathy Acute hypoxemic respiratory failure (HCC) Atelectasis Cardiogenic shock (HCC) Severe sepsis (HCC) Shock liver Hyperkalemia Pleural effusion, bilateral Adrenal nodule (HCC) Pleuritic chest pain Shock (CMS/HCC) (HCC) Assessment & Plan Ms. Freeman is a 63-year-old female with PMH T2DM, presented by EMS after being found down and unresponsive by family and determined to be in complete heart block, now s/p placement of temporary pacer -- CHB/ECG changes concerning for STEMI - s/p Temp Pacer, LHC showed 100% RCA occlusion s/p PCI with HARI x1 to mid RCA (via R Fem access). Patient course complicated by ESRD, initially on CRRT now s/p TDC 04/06 and initiated on HD. Pending outpatient dialysis chair. Updates: 04/11 - Still pending OP dialysis chair - will follow up - Continuing HD for volume overload #STEMI s/p PCI with HARI to mid RCA (100% RCA occlusion) #CAD #Complete Heart Block, resolved #Atrial Fibrillation - EP to evaluate for permanent pacemaker - EKG now paced - troponin initially 1846 > 2205 > 8000 -Patient s/p PCI with HARI, currently HDS and extubated 03/28, loaded with Brilinta/Aspirin during procedure - TTE (03/31): EF 60-65%, RV normal systolic fxn, LA mild dilation Plan - Continue ASA 81, started Plavix - Holding Statin for now given elevated LFT's, will resume when resolved - Hydral 25mg q8h - held for now given lower BP's on medication - On Eliquis Acute respiratory failure Pulmonary edema Dyspnea - Extubated 03/28 - CXR 04/01 with worsening diffuse opacities, CXR 04/05 with continued interstitial opacities - Will pull fluids with HD - Aspiration precautions - s/p PUF 04/06/24 with 2.2 L removed, s/p TDC placement with IR Plan: - Continue HD MWF planned per Nephro #Transaminitis, improving - Likely shock liver- finally down trending 04/01 - Nutrition, heart healthy diet - PUD ppx - BM Plan: -Trend LFT's #ESRD #GUILHERME on CKD - Pt was anuric, now making urine - Renal US Bilateral renal parenchymal disease. - nephrology consulted, initated CRRT 03/29 - TDC placed 04/06 Plan: - Urine Lytes, Urine Protein/Creatinine - HD chair need outpatient, declared ESRD, working on outpatient HD chair - monitor urine output #Persistent Fever, concern for Sepsis #Leukocytosis, improving #Lactic acidosis, improved - Afebrile since 03/28 2000 - Lactic acid 5.32 -> 2.34 -> 1.33 - completed course of meropenem (03/29-04/03) and vancomycin (03/28-04/02) - Cultures negative to date but patient was taking abx days prior for dental abscess - CT maxillofacial: diffuse periodontal disease, some soft tissue swelling in L vestibular/buccal space but no abscess Plan - continue to trend #Anemia - family reports no hx - Hb 8.0 yesterday - Hb 7.1, after PCI - no signs of bleeding - Hb 03/29 6.8 > transfused 1 U pRBC, responded appropriately - Iron low, ferritin and TIBC WNL Plan - CTM - Will transfuse to keep Hgb >7.0 DVT PPX: Heparin SubQ PUD PPX : Protonix Diet: Heart healthy PT/OT indicated: consulted Lines: Peripheral IV x 2, G tube, Guevara Catheter Guevara: day 1 Code status: FULL Dispo: pending clinical stablility Contact: see separate note for contact info Elisha Interiano MD PGY 1 [facility] | Internal Medicine Subjective NAEON. Patient is asleep upon evaluation this morning. Objective Vital Signs Current: Visit Vitals BP 108/58 Pulse 85 Temp 36.5 ?C (97.7 ?F) Resp 21 24 Hour: Vitals: 04/11/24 0200 04/11/24 0300 04/11/24 0400 04/11/24 0500 BP: 101/60 107/59 109/54 108/58 Pulse: 82 81 82 85 Resp: 17 16 21 Temp: SpO2: 95% 94% 97% 96% Intake/Output: I/O last 3 completed shifts: In: 2140 (25 mL/kg) [P.O.:1840; I.V.:300 (3.5 mL/kg)] Out: 3852 (44.9 mL/kg) [Urine:50 (0 mL/kg/hr); Other:3800; Stool:2] Weight: 85.7 kg Intake/Output Summary (Last 24 hours) at 04/11/2024 0643 Last data filed at 04/10/2024 1700 Gross per 24 hour Intake 1140 ml Output -- Net 1140 ml Net intake/output since admission: Net IO Since Admission: -11,872.6 mL [04/11/24 0643] PHYSICAL EXAM General Appearance: no acute distress, no pallor HEENT: Extra ocular movements intact, no scleral icterus, mucous membrane moist, external ears normal Neck: Supple, FROM Lungs: respiratory effort normal, CTA bilaterally, no wheezes/rales/rhonchi Heart: Regular rate, in AFib, no murmur Abdomen: soft, non-tender, non-distended MSK/Extremities: No obvious deformity. 1+ edema in BLE. Skin: No lesions, no rash. No jaundice. TDC in place Neurologic: AOx3, no focal deficits, speech clear Psych: Mood congruent affect, responds appropriately to questions. SCHEDULED HOSPITAL MEDICATIONS apixaban, 2.5 mg, Oral, q12h DIRK aspirin EC, 162 mg, Oral, q8h bisacodyl, 10 mg, Rectal, Daily calcium gluconate, 2 g, Intravenous, Once clopidogrel, 75 mg, Oral, Daily Ensure Enlive, 1 Container, Oral, BID gabapentin, 200 mg, Oral, BID insulin glargine, 23 Units, Subcutaneous, Daily lidocaine, 1 patch, Apply externally, Daily pantoprazole, 40 mg, Intravenous, q24h DIRK polyethylene glycol (PEG) 3350, 17 g, Oral, Daily sennosides, 2 tablet, Oral, Daily sodium chloride, 500 mL, Intravenous, Once sodium zirconium cyclosilicate, 5 g, Oral, Daily PRN Medications: PRN medications: dextrose, dextrose, glucagon, heparin, insulin lispro, ipratropium-albuterol, melatonin, menthol-zinc oxide, oxyCODONE, [COMPLETED] Insert peripheral IV AND [COMPLETED] Saline lock IV AND sodium chloride, [COMPLETED] Insert peripheral IV AND [COMPLETED] Saline lock IV AND sodium chloride LABS Results from last 7 days Lab Units 04/11/2421904/10/2441504/09/24 0115 WBC 10*3/uL 16.14* 17.22* 16.39* HEMOGLOBIN g/dL 7.8* 8.2* 8.5* MCV fL 83.4 84.3 84.7 Results from last 7 days Lab Units 04/11/2421904/10/24 0416 04/09/24 0115 WBC 10*3/uL 16.14* 17.22* 16.39* HEMOGLOBIN g/dL 7.8* 8.2* 8.5* MCV fL 83.4 84.3 84.7 Results from last 7 days Lab Units 04/11/2421904/10/24 1435 04/10/24 0416 04/08/24 0009 04/07/24 0215 04/06/24 0147 04/05/24 0516 SODIUM mEq/L 127* 125* 129* < > 128* 127* -- POTASSIUM mEq/L 5.3* 4.8* 5.0* < > 4.6* 4.3 -- CHLORIDE mEq/L 96* 97* 100 < > 98 99 -- CO2 mEq/L 20.4 19.6* 22.5 < > 22.0 24.3 -- BUN mg/dL 55* 49* 49* < > 56* 41* -- PHOSPHORUS mg/dL -- -- -- -- 5.9* 4.4 2.9 < > = values in this interval not displayed. Results from last 7 days Lab Units 04/10/24 0416 04/09/24 0115 04/08/24 0009 AST U/L 18 14 19 ALT U/L 21 35 122* Results from last 7 days Lab Units 04/11/24 0220 04/06/24 0147 04/05/24 1726 04/05/24 1152 INR 1.85* -- 1.22* 1.20* PROTIME Seconds 21.7* -- 15.7* 15.5* PTT Seconds 39.9* 52.4* 60.7* 34.5 Microbiology: No results found for the last 90 days. OTHER DATA Radiology Review: No results found. Cosigned by Carla Gayle MD at 04/11/2024 9:19 AM WHEEL PRESSER L PRESSER L PRESSER Associated attestation - Carla Gayle MD - 04/11/2024 9:19 AM WHEEL PRESSER The patient was seen and examined with the resident and/or fellow. The relevant lab results, imaging and EKGs were personally reviewed, and the medications were reconciled. I agree with above mentioned assessment and plan. Patient Active Problem List Diagnosis Date Noted Pleuritic chest pain 04/05/2024 ST elevation myocardial infarction (STEMI) of inferior wall ([facility]) 03/28/2024 Heart block 03/27/2024 Hyperglycemia due to diabetes mellitus (CMS/HCC) ([facility]) 03/27/2024 On mechanically assisted ventilation (CMS/HCC) ([facility]) 03/27/2024 Fall 03/27/2024 GUILHERME (acute kidney injury) ([facility]) 03/27/2024 Acute respiratory alkalosis 03/27/2024 Anemia of chronic disease 03/27/2024 Toxic metabolic encephalopathy 03/27/2024 Acute hypoxemic respiratory failure ([facility]) 03/27/2024 Atelectasis 03/27/2024 Cardiogenic shock (HCC) 03/27/2024 Severe sepsis (HCC) 03/27/2024 Shock liver 03/27/2024 Hyperkalemia 03/27/2024 Pleural effusion, bilateral 03/27/2024 Adrenal nodule (HCC) 03/27/2024 Shock (CMS/HCC) (HCC) 03/27/2024 * Liberty Christianson LMSW - 04/10/2024 3:22 PM WHEEL PRESSER SW spoke to [facility] stating pt is not financially cleared for chair. Will follow up. L PRESSER * Kiya Daniel OT - 04/10/2024 2:41 PM WHEEL PRESSER Occupational Therapy Treatment Session Note Patient Name: Elvis Freeman Today's Date: 04/10/2024 Preferred Language: [place] Assessment & Plan Assessment: Pt able to progress towards skilled acute OT goals as evident by completion of LBD w/ set-up and tolerance for OOB fxn mobility. Pt performs STS w/o DME and CGA; Pt reported to have utilized BSC prior to arrival and demos potenital to demo fxn reach for perineal care. Pt demo deficit in fxn endurance and activity tolerance during fxn mobility as noted with min SOB, though unreliable SPO2 waveform. Pt appeared to improve with NC2L. Pt to continue to benefit form skilled acute OT while admitted to maximize pt fxn potential. Plan: Treatment Plan/Goals Established with Patient/Caregiver: Yes Treatment Interventions: ADL retraining, Endurance training, Functional transfer training, Patient/family training, UE strengthening/ROM OT Plan: Skilled OT OT Frequency: 3-5 times per week OT Discharge Recommendations: Home Health OT OT Planned Treatments: Activities of Daily Living, Caregiver training, Balance training, Energy conservation training, Home program, Mobility training, Therapeutic exercises, Therapeutic activities Subjective Objective Vital Signs: At depart: HR 87 BP 110/56 (78) SPO2 100 General Visit Information: Family/Caregiver Present: Yes Others Present: son Self Care (ADL):LE Dressing Activity Component(s): Compression hose/stockings LE Dressing Assistance: Setup/clean-up assistance LE Dressing Deficit: Don/doff R sock, Don/doff L sock TreatmentRN Alexia cleared pt for OT tx Pt received UIC, NC 2L, on tele and son present Pt donned B socks while UIC with set-up Pt trialed on RA STS w/o DME Pt declined ADL needs Pt tolerable for fxn household on RA; Reaching min community distances and noted signs of fatigue, NC 2L returned as SPO2 waveform poor Pt returned to room and t/f into chair Pt demo potential for BSC for t/f and perineal care, though no trial at this time Pt encouraged to cont OOB toileting Pt left UIC, on tele, NC 2L, and VSS RN updated. Self-Care:LE Dressing Activity Component(s): Compression hose/stockings LE Dressing Assistance: Setup/clean-up assistance LE Dressing Deficit: Don/doff R sock, Don/doff L sock Transfers: Transfer 1Level of Assistance 1: Supervision/touching assistance Trials/Comments 1: chair<>STS Transfer To/From: [id number]/[id number] AM-PAC Daily Activity:Putting on and taking off regular lower body clothing: A Little Bathing (including washing, rinsing, drying): A Little Toileting, which includes using toilet, bedpan or urinal: A Little Putting on and taking off regular upper body clothing: A Little Taking care of personal grooming such as brushing teeth: None Eating Meals: None AM-PAC Daily Activity Raw Score: 20 MobilityHighest Level of Mobility Performed (JH-HLM): Walked 25 feet or more (i.e. walked outside of room) Patient Education:Education Documentation No documentation found. Education Comments No comments found. Goals:Encounter Goals Encounter Goals (Active) Patient will perform grooming with mod I standing at sink. (Progressing) Start: 04/02/24 Expected End: 05/02/24 Patient will perform toilet transfer with mod I using LRAD. (Progressing) Start: 04/02/24 Expected End: 05/02/24 Patient will perform toileting with mod I in 3/3 trials. (Progressing) Start: 04/02/24 Expected End: 05/02/24 Pt will perform >8 min of OOB ADL routine with no rest breaks to improve overall activity tolerance. Start: 04/02/24 Expected End: 05/02/24 Within 2 weeks of starting therapy, the patient and/or family/caregiver will demonstrate independence and be compliant in a written HEP in order to maximize gains made during therapy. Start: 04/02/24 Expected End: 05/02/24 Encounter Goals (Resolved) Patient will perform lower body dressing with mod I using assistive device if needed in 3/3 trials. (Completed) Start: 04/02/24 Expected End: 05/02/24 Resolved: 04/10/24 Treatment Note: If this is the last documented treatment, then it will signify discharge from acute care prior to discharge from the therapy service and will serve as the discharge summary. Kiya Daniel, OT L PRESSER L PRESSER * Alyson Gary, PT - 04/10/2024 2:29 PM WHEEL PRESSER Treatment Session Note Patient Name: Elvis Freeman Today's Date: 04/10/2024 Preferred Language: [place] Assessment & Plan Assessment: Pt cont to make progress with mobility and is able to increase amb distance in hallway. She is mobilizing below her baseline but expect she will cont to make steady progress with further skilled PT. Pt appears to have good support at home and all necessary DME. Plan: PT Plan: Skilled PT PT Discharge Recommendations: Home health PT Therapy discharge recommendations are made by determining the patient's prior level of function, assessing current function level and establishing rehab potential. The overall discharge plan may be affected by input from Physicians, Care Coordination, medical condition/status, family support and insurance benefits. Subjective Pt agreeable to working with PT Precautions: Medical Precautions: standard Objective General Visit Information: PT Last Visit PT Received On: 04/10/24 Pt found sitting in chair, son present. Pt on 2LO2. She stood to RW and amb in hallway on RA. Difficult to get accurate SpO2 reading but pt reports mild SOB. She was placed back on 2LO2 for remainder of session. Pt returned to room and sat in chair. Encouraged to cont with seated BLE therex. RN aware of pt's status. Activity Tolerance:Endurance: Tolerates less than 10 min exercise, no significant change in vital signs CognitionOverall Cognitive Status: Within Functional Limits TreatmentTransfers 1: Level of Assistance 1: Supervision/touching assistance Transfer To/From: [id number]/[id number] Gait training: Gait Training Time Entry: 23 Gait Training Activity 1:Distance (enter in feet): 180' Assistive Devices And Adaptive Equipments: Walker, front-wheeled Level of Assistance 1: Supervision/touching assistance Gait Training Activity 1 Comment: Pt amb. with slower pace, took 1 standing rest break AM-PAC Basic Mobility:AM-PAC Basic Mobility Inpatient Turning in bed without bedrails: None Lying on back to sitting on edge of flat bed: A Little Bed to chair: A Little Standing up from chair: A Little Walk in room: A Little Climbing 3-5 stairs: A Lot Mobility Inpatient Raw Score: 18 JH-HLM Goal: 6 Mobility: Highest Level of Mobility Performed (JH-HLM)JH-HLM Goal: 6 Highest Level of Mobility Performed (JH-HLM): Walked 25 feet or more (i.e. walked outside of room) Modified [place] Patient Education: Education Documentation No documentation found. Education Comments No comments found. Goals:Encounter Goals Encounter Goals (Active) Patient will perform grooming with mod I standing at sink. Start: 04/02/24 Expected End: 05/02/24 Pt will perform >8 min of OOB ADL routine with no rest breaks to improve overall activity tolerance. Start: 04/02/24 Expected End: 05/02/24 Pt will be mod I with bed mobility Start: 04/02/24 Expected End: 04/26/24 Pt will amb 400' mod I Start: 04/02/24 Expected End: 04/26/24 Within 2 weeks of starting therapy, the patient and/or family/caregiver will demonstrate independence and be compliant in a written HEP in order to maximize gains made during therapy. Start: 04/02/24 Expected End: 05/02/24 Pt will be mod I with all transfers Start: 04/02/24 Expected End: 04/26/24 Treatment Note: If this is the last documented treatment, then it will signify discharge from acute care prior to discharge from the therapy service and will serve as the discharge summary. Alyson Gary PT L PRESSER * Liberty Christianson LMSW - 04/10/2024 7:48 AM WHEEL PRESSER [facility] requesting hep b surface antigen to continue referral. Team notified. L PRESSER * Elisha Interiano MD - 04/10/2024 7:35 AM WHEEL PRESSER [facility] Progress Note Admission Date: 03/27/2024 Hospital Day: 14 Problem List Principal Problem: ST elevation myocardial infarction (STEMI) of inferior wall (HCC) Active Problems: Heart block Hyperglycemia due to diabetes mellitus (CMS/HCC) (HCC) On mechanically assisted ventilation (CMS/HCC) (HCC) Fall GUILHERME (acute kidney injury) (HCC) Acute respiratory alkalosis Anemia of chronic disease Toxic metabolic encephalopathy Acute hypoxemic respiratory failure (HCC) Atelectasis Cardiogenic shock (HCC) Severe sepsis (HCC) Shock liver Hyperkalemia Pleural effusion, bilateral Adrenal nodule (HCC) Pleuritic chest pain Shock (CMS/HCC) (HCC) Assessment & Plan Ms. Freeman is a 63-year-old female with PMH T2DM, presented by EMS after being found down and unresponsive by family and determined to be in complete heart block, now s/p placement of temporary pacer -- CHB/ECG changes concerning for STEMI - s/p Temp Pacer, LHC showed 100% RCA occlusion s/p PCI with HARI x1 to mid RCA (via R Fem access). Patient course complicated by ESRD, initially on CRRT now s/p TDC 04/06 and initiated on HD. Pending outpatient dialysis chair. Updates: 04/10 - Still pending OP dialysis chair - approval likely late this week or next week - Continuing HD for volume overload #STEMI s/p PCI with HARI to mid RCA (100% RCA occlusion) #CAD #Complete Heart Block, resolved #Atrial Fibrillation - EP to evaluate for permanent pacemaker - EKG now paced - troponin initially 1846 > 2205 > 8000 -Patient s/p PCI with HARI, currently HDS and extubated 03/28, loaded with Brilinta/Aspirin during procedure - TTE (03/31): EF 60-65%, RV normal systolic fxn, LA mild dilation Plan - Continue ASA 81, started Plavix - Holding Statin for now given elevated LFT's, will resume when resolved - Hydral 25mg q8h - held for now given lower BP's on medication - On Eliquis Acute respiratory failure Pulmonary edema Dyspnea - Extubated 03/28 - CXR 04/01 with worsening diffuse opacities, CXR 04/05 with continued interstitial opacities - Will pull fluids with HD - Aspiration precautions - s/p PUF 04/06/24 with 2.2 L removed, s/p TDC placement with IR Plan: - Continue HD MWF planned per Nephro #Transaminitis, improving - Likely shock liver- finally down trending 04/01 - Nutrition, heart healthy diet - PUD ppx - BM Plan: -Trend LFT's #ESRD #GUILHERME on CKD - Pt was anuric, now making urine - Renal US Bilateral renal parenchymal disease. - nephrology consulted, initated CRRT 03/29 - TDC placed 04/06 Plan: - Urine Lytes, Urine Protein/Creatinine - HD chair need outpatient, declared ESRD, working on outpatient HD chair - monitor urine output #Persistent Fever, concern for Sepsis #Leukocytosis, improving #Lactic acidosis, improved - Afebrile since 03/28 2000 - Lactic acid 5.32 -> 2.34 -> 1.33 - completed course of meropenem (03/29-04/03) and vancomycin (03/28-04/02) - Cultures negative to date but patient was taking abx days prior for dental abscess - CT maxillofacial: diffuse periodontal disease, some soft tissue swelling in L vestibular/buccal space but no abscess Plan - continue to trend #Anemia - family reports no hx - Hb 8.0 yesterday - Hb 7.1, after PCI - no signs of bleeding - Hb 03/29 6.8 > transfused 1 U pRBC, responded appropriately - Iron low, ferritin and TIBC WNL Plan - CTM - Will transfuse to keep Hgb >7.0 DVT PPX: Heparin SubQ PUD PPX : Protonix Diet: Heart healthy PT/OT indicated: consulted Lines: Peripheral IV x 2, G tube, Guevara Catheter Guevara: day 1 Code status: FULL Dispo: pending clinical stablility Contact: see separate note for contact info Elisha Interiano MD PGY 1 [facility] | Internal Medicine Subjective NAEON. Patient alert, sitting in chair upon evaluation this morning. She says she feels well and was able to sleep well last night. She is able to make her way around the room without issue and states she is peeing more and more each day. Objective Vital Signs Current: Visit Vitals BP 134/70 Pulse 83 Temp 36.6 ?C (97.8 ?F) Resp 19 24 Hour: Vitals: 04/10/24 0400 04/10/24 0430 04/10/24 0500 04/10/24 0600 BP: 109/56 104/73 134/70 Pulse: 85 80 83 Resp: Temp: 36.6 ?C (97.8 ?F) SpO2: 99% 100% 98% Intake/Output: I/O last 3 completed shifts: In: 1250 (14.6 mL/kg) [P.O.:900; I.V.:300 (3.5 mL/kg); IV Piggyback:50] Out: 3852 (44.9 mL/kg) [Urine:50 (0 mL/kg/hr); Other:3800; Stool:2] Weight: 85.7 kg Intake/Output Summary (Last 24 hours) at 04/10/2024 07 Last data filed at 04/10/2024 0135 Gross per 24 hour Intake 1000 ml Output 3852 ml Net -2852 ml Net intake/output since admission: Net IO Since Admission: -13,012.6 mL [04/10/24 0735] PHYSICAL EXAM General Appearance: no acute distress, no pallor HEENT: Extra ocular movements intact, no scleral icterus, mucous membrane moist, external ears normal Neck: Supple, FROM Lungs: respiratory effort normal, CTA bilaterally, no wheezes/rales/rhonchi Heart: Regular rate, in AFib, no murmur Abdomen: soft, non-tender, non-distended MSK/Extremities: No obvious deformity. 1+ edema in BLE. Skin: No lesions, no rash. No jaundice. TDC in place Neurologic: AOx3, no focal deficits, speech clear Psych: Mood congruent affect, responds appropriately to questions. SCHEDULED HOSPITAL MEDICATIONS apixaban, 2.5 mg, Oral, q12h DIRK aspirin EC, 162 mg, Oral, q8h bisacodyl, 10 mg, Rectal, Daily calcium gluconate, 2 g, Intravenous, Once clopidogrel, 75 mg, Oral, Daily Ensure Enlive, 1 Container, Oral, BID gabapentin, 200 mg, Oral, BID insulin glargine, 20 Units, Subcutaneous, Daily lidocaine, 1 patch, Apply externally, Daily pantoprazole, 40 mg, Intravenous, q24h DIRK polyethylene glycol (PEG) 3350, 17 g, Oral, Daily sennosides, 2 tablet, Oral, Daily sodium chloride, 500 mL, Intravenous, Once PRN Medications: PRN medications: dextrose, dextrose, glucagon, heparin, insulin lispro, ipratropium-albuterol, melatonin, menthol-zinc oxide, oxyCODONE, [COMPLETED] Insert peripheral IV AND [COMPLETED] Saline lock IV AND sodium chloride, [COMPLETED] Insert peripheral IV AND [COMPLETED] Saline lock IV AND sodium chloride LABS Results from last 7 days Lab Units 04/10/2441504/09/24 0115 04/08/24 0009 WBC 10*3/uL 17.22* 16.39* 15.56* HEMOGLOBIN g/dL 8.2* 8.5* 8.4* MCV fL 84.3 84.7 84.4 Results from last 7 days Lab Units 04/10/24 0416 04/09/24 0115 04/08/24 0009 WBC 10*3/uL 17.22* 16.39* 15.56* HEMOGLOBIN g/dL 8.2* 8.5* 8.4* MCV fL 84.3 84.7 84.4 Results from last 7 days Lab Units 04/10/24 0416 04/09/24 1445 04/09/24 0602 04/08/24 0009 04/07/24 0215 04/06/24 0147 04/05/24 0516 SODIUM mEq/L 129* 131* 127* < > 128* 127* -- POTASSIUM mEq/L 5.0* 4.3 6.6* < > 4.6* 4.3 -- CHLORIDE mEq/L 100 100 96* < > 98 99 -- CO2 mEq/L 22.5 22.6 19.4* < > 22.0 24.3 -- BUN mg/dL 49* 35* 92* < > 56* 41* -- PHOSPHORUS mg/dL -- -- -- -- 5.9* 4.4 2.9 < > = values in this interval not displayed. Results from last 7 days Lab Units 04/10/24 0416 04/09/24 0115 04/08/24 0009 AST U/L 18 14 19 ALT U/L 21 35 122* Results from last 7 days Lab Units 04/06/24 0147 04/05/24 1726 04/05/24 1152 04/05/24 0516 INR -- 1.22* 1.20* 1.24* PROTIME Seconds -- 15.7* 15.5* 15.9* PTT Seconds 52.4* 60.7* 34.5 48.5* Microbiology: No results found for the last 90 days. OTHER DATA Radiology Review: XR chest 1 view Result Date: 04/09/2024 EXAM: XR CHEST 1 VIEW DATE: 04/09/2024 11:18 INDICATION: shortness of breath . TECHNIQUE: Chest 1 view FINDINGS: Comparison is made to April 06. IMPRESSION: Cardiomediastinal silhouette is unchanged. There are hazy alveolar opacities in the lungs which could be due to edema or pneumonia. Small left pleural effusion. New, large bore, right jugular central venous catheter has its tip over the right atrium. Cosigned by Carla Gayle MD at 04/10/2024 10:31 AM WHEEL PRESSER L PRESSER L PRESSER Associated attestation - Carla Gayle MD - 04/10/2024 10:31 AM WHEEL PRESSER The patient was seen and examined with the resident and/or fellow. The relevant lab results, imaging and EKGs were personally reviewed, and the medications were reconciled. I agree with above mentioned assessment and plan. Patient Active Problem List Diagnosis Date Noted Pleuritic chest pain 04/05/2024 ST elevation myocardial infarction (STEMI) of inferior wall (HCC) 03/28/2024 Heart block 03/27/2024 Hyperglycemia due to diabetes mellitus (CMS/HCC) (HCC) 03/27/2024 On mechanically assisted ventilation (CMS/HCC) (HCC) 03/27/2024 Fall 03/27/2024 GUILHERME (acute kidney injury) ([facility]) 03/27/2024 Acute respiratory alkalosis 03/27/2024 Anemia of chronic disease 03/27/2024 Toxic metabolic encephalopathy 03/27/2024 Acute hypoxemic respiratory failure (HCC) 03/27/2024 Atelectasis 03/27/2024 Cardiogenic shock ([facility]) 03/27/2024 Severe sepsis (HCC) 03/27/2024 Shock liver 03/27/2024 Hyperkalemia 03/27/2024 Pleural effusion, bilateral 03/27/2024 Adrenal nodule (HCC) 03/27/2024 Shock (CMS/HCC) (HCC) 03/27/2024 * Zayth Louie Paze MD - 04/10/2024 6:24 AM WHEEL PRESSER ME Nephrology Progress Note Chief Complaint: had concerns including Fall. Nephrology following for: Acute Kidney Injury Assessment & Plan: Elvis Freeman is a 63 y/o F with PMH of DM who presented via EMS after being found unresponsive by family. She was noted to have complete heart block with inferior STEMI now s/p placement of temporary pacer and LHC w/ stent x 1 on 03/27. Nephrology is following for acute renal failure requiring CRRT. Off CRRT, now transitioning to HD. Initially GUILHERME requiring dialysis, however has now progressed to ESRD s/p TDC on 04/06. Recommendations: - HD tomorrow - Continued improvement on her blood sugar - Infectious work-up and management per CCU and PCCM - SW/CM consult to assist with arranging HD on discharge - Pending financial clearance from [facility]. ESRD GUILHERME requiring dialysis, non-recovered - Likely ischemic ATN in setting of hemodynamic instability, sepsis, and possible underlying chronic kidney disease - Unknown Cr baseline - Cr 2.77 on admission, peaked at 5.88 on 03/29 - Renal U/S showed bilateral parenchymal disease - Guevara in place, patient remains anuric - On CRRT as of 03/29, aiming for net even initially - CRRT stopped in evening 04/02 - Cr 1.67 -> 2.20 after stopping CRRT, electrolytes stable - Cr 4.51 as of 04/05 - Patient will need HD chair set up outpatient - s/p PUF 04/03 and 04/07, HD 04/04, 04/05 and 04/10 Volume status:- Some slight signs of volume overload with congestive hepatopathy, pleural effusions - Received PUF 04/03, removing 3L - 3.5L removed with HD 04/05 - I/O: net -2.5L on 04/05 - Will manage with HD Hypoalbuminemia- Albumin: 1.9 - Urine protein >300 - Albumin/Globulin ratio: 0.45 Electrolytes:- Stable and appropriate - Optimize with PUTTYING AND CALKING SUPERVISOR Acid-Base:- Bicarb 24.3 Normocytic anemia:- Hgb 6.8 -> 8.9 post-transfusion 03/28 - Hgb now stable at 8.6 - Iron: 18 - Ferritin 663-> 118.8 Case discussed with attending. Trinidad Silverio 2023 6:24 AM --Subjective: Patient is feeling better post HD. Is able to breathe better stating that she does not need oxygen at this point in time. Swelling has also decreased. Otherwise, no chest pain/pressure. Objective: Vitals:04/10/24 0300 04/10/24 0400 04/10/24 0430 04/10/24 0500 BP: 109/56 104/73 Pulse: 85 80 Resp: 19 Temp: 36.6 ?C (97.8 ?F) SpO2: 99% 100% Intake/Output Summary (Last 24 hours) at 04/10/2024 0624Last data filed at 04/10/2024 0135 Gross per 24 hour Intake 1000 ml Output 3852 ml Net -2852 ml Physical Exam:Constitutional: General: She is not in acute distress. Appearance: Normal appearance. She is not ill-appearing. HENT: Head: Normocephalic and atraumatic. Right Ear: External ear normal. Left Ear: External ear normal. Cardiovascular: Rate and Rhythm: Normal rate and regular rhythm. Pulses: Normal pulses. Heart sounds: Normal heart sounds. Pulmonary: Effort: Pulmonary effort is normal. No respiratory distress. Breath sounds: Normal breath sounds. Abdominal: General: There is no distension. Palpations: Abdomen is soft. Tenderness: There is no abdominal tenderness. Musculoskeletal: General: Normal range of motion. Right lower leg: No edema. Left lower leg: No edema. Skin: General: Skin is warm. Coloration: Skin is not jaundiced. Findings: No bruising. Neurological: General: No focal deficit present. Mental Status: She is alert and oriented to person, place, and time. Dialysis Access: Right IJ Medications:Scheduled: apixaban, 2.5 mg, Oral, q12h DIRK aspirin EC, 162 mg, Oral, q8h bisacodyl, 10 mg, Rectal, Daily calcium gluconate, 2 g, Intravenous, Once clopidogrel, 75 mg, Oral, Daily Ensure Enlive, 1 Container, Oral, BID gabapentin, 200 mg, Oral, BID insulin glargine, 20 Units, Subcutaneous, Daily lidocaine, 1 patch, Apply externally, Daily pantoprazole, 40 mg, Intravenous, q24h [facility] polyethylene glycol (PEG) 3350, 17 g, Oral, Daily sennosides, 2 tablet, Oral, Daily sodium chloride, 500 mL, Intravenous, Once Infusions: Data:Labs and imaging reviewed. Lab Results Component Value Date BUN 49 (H) 04/10/2024 Results from last 7 daysLab Units 04/10/24 0416 04/09/24 1445 04/09/24 0602 CREATININE mg/dL 4.75* 3.51* 7.00* Electrolytes:LYTES - Na/K/Cl/CO2: 129*/5.0*/100/22.5 (04/10 416) Lab ResultsComponent Value Date Calcium Lvl 9.0 04/10/2024 Phosphorus Lvl 5.9 (H) 04/07/2024 Lab ResultsComponent Value Date Hgb 8.2 (L) 04/10/2024 Cosigned by Shashank Pizano MD at 04/10/2024 9:28 PM WHEEL PRESSER L PRESSER L PRESSER L PRESSER Associated attestation - Shashank Pizano MD - 04/10/2024 9:28 PM CST ATTENDING NOTE I evaluated this medically complex patient, reviewed the laboratory data and imaging, discussed the pertinent case findings with the resident/fellow, and agree with the exam, assessment and plan as documented below. Plan and exam discussed with the primary team. Merrill Hatfield Professor Division of Renal Diseases and Hypertension [facility] | [facility] Contact: [employer] secure chat | [phone] * Alyson Gary PT - 04/09/2024 2:19 PM WHEEL PRESSER Encounter Note Patient Name: Elvis Freeman Today's Date: 04/09/2024 Missed Treatment Time and Reason Others Present: Son present PT arrived for session. Pt currently undergoing HD . We will cont to follow Alyson Gary PT L PRESSER * Lucrecia Clifford LMSW - 04/09/2024 12:36 PM WHEEL PRESSER Pending Financial Clearance from [facility] [employer]. [facility] requested: hep b surface antigen and hep b core antibody total. SW sent L PRESSER * Shakira Hayes, OT - 04/09/2024 11:11 AM WHEEL PRESSER OT Encounter Note Patient Name: Elvis Freeman Today's Date: 04/09/2024 Missed Treatment Time and Reason Amount of Missed Time (min): 0 Minutes Pt with HD at bedside; OT will follow up. Shakira Hayes OT L PRESSER * Jayla Grewal MD - 04/09/2024 6:37 AM WHEEL PRESSER CCU Progress Note Admission Date: 03/27/2024 CCU Day: 13 Problem List Principal Problem: ST elevation myocardial infarction (STEMI) of inferior wall (HCC) Active Problems: Heart block Hyperglycemia due to diabetes mellitus (CMS/HCC) (HCC) On mechanically assisted ventilation (CMS/HCC) (HCC) Fall GUILHERME (acute kidney injury) (HCC) Acute respiratory alkalosis Anemia of chronic disease Toxic metabolic encephalopathy Acute hypoxemic respiratory failure (HCC) Atelectasis Cardiogenic shock (HCC) Severe sepsis (HCC) Shock liver Hyperkalemia Pleural effusion, bilateral Adrenal nodule (HCC) Pleuritic chest pain Shock (CMS/HCC) (HCC) Assessment & Plan Ms. Freeman is a 63-year-old female presented by EMS after being found down and unresponsive by family and determined to be in complete heart block, now s/p placement of temporary pacer -- CHB/ECG changes concerning for STEMI - s/p Temp Pacer, LHC showed 100% RCA occlusion s/p PCI with HARI x1 to mid RCA (via R Fem access). Updates: 04/08 - Nephro - declared ESRD, IR - TDC placement occurred 04/06 >> HD today with UF >> pending outpatient HD chair >> pending K+ recs - compression wrap LE - CRRT - 2.0 L removed yesterday - CXR to evaluated SOB and leukocytosis Cardiovascular: #STEMI s/p PCI with HARI to mid RCA (100% RCA occlusion) #CAD #Complete Heart Block, resolved #Atrial Fibrillation - EP to evaluate for permanent pacemaker - EKG now paced - troponin initially 1846 > 2205 > 8000 -Patient s/p PCI with HARI, currently HDS and extubated 03/28, loaded with Brilinta/Aspirin during procedure - TTE (03/31): EF 60-65%, RV normal systolic fxn, LA mild dilation Plan - Continue ASA 81, started Plavix - Holding Statin for now given elevated LFT's, will resume when resolved - Hydral 25mg q8h - held for now given lower BP's on medication - On Eliquis Neurology: - Pain control: Tylenol prn - Fall precautions - CT head negative Respiratory: Acute respiratory failure Pulmonary edema Dyspnea - Extubated 03/28 - CXR 04/01 with worsening diffuse opacities, CXR 04/05 with continued interstitial opacities - Will pull fluids with HD - Aspiration precautions - s/p PUF 04/06/24 with 2.2 L removed, s/p TDC placement with IR Plan: - Continue HD MWF planned per Nephro Gastroenterology: #Transaminitis, improving - Likely shock liver- finally down trending 04/01 - Nutrition, heart healthy diet - PUD ppx - BM Plan: -Trend LFT's Renal: #ESRD #GUILHERME on CKD - Cr 2.75, unknown baseline - monitor UOP - pt anuric -Cr uptrending, with urine output decreasing - Renal US Bilateral renal parenchymal disease. - nephrology consulted, initated CRRT 03/29 Plan: - Urine Lytes, Urine Protein/Creatinine - HD chair need outpatient, declared ESRD, working on outpatient HD chair - IR - TDC placement - 04/06 - monitor urine output - Will trial HD on TDC Infectious Disease: #Persistent Fever, concern for Sepsis #Leukocytosis, improving #Lactic acidosis, improved - Afebrile since 03/28 2000 - Lactic acid 5.32 -> 2.34 -> 1.33 - completed course of meropenem (03/29-04/03) and vancomycin (03/28-04/02) - Cultures negative to date but patient was taking abx days prior for dental abscess - CT maxillofacial: diffuse periodontal disease, some soft tissue swelling in L vestibular/buccal space but no abscess Plan - continue to trend Hematology: #Anemia - family reports no hx - Hb 8.0 yesterday - Hb 7.1, after PCI - no signs of bleeding - Hb 03/29 6.8 > transfused 1 U pRBC, responded appropriately Plan - CTM - Follow-up Iron studies (send out lab 2-3 days) - Will transfuse to keep Hgb >7.0 Endocrinology: - on home insulin +/- metformin - Goal BS: 140-180 - glucose checks q4 - A1c 10.4 - TSH 0.914 Plan: -Glargine 5u daily -SSI -CTM DVT PPX: Heparin SubQ PUD PPX : Protonix Diet: Heart healthy PT/OT indicated: consulted Lines: Peripheral IV x 2, G tube, Guevara Catheter Guevara: day 1 Code status: FULL Dispo: pending clinical stablility Contact: see separate note for contact info Patient staffed with attending physician, Dr. Gayle. Jayla Grewal MD Internal Medicine | PGY-1 [facility] | [facility] Subjective Overnight, no events/concerns. This morning patient reports continuing to feel subjectively SOB. Saturating well. Objective Vital Signs Current: Visit Vitals BP 118/71 Pulse 86 Temp 37.1 ?C (98.7 ?F) (Oral) Resp 20 24 Hour: Vitals: 04/09/24 0305 04/09/24 0400 04/09/24 0500 04/09/24 0600 BP: 116/68 138/60 125/59 118/71 Pulse: 93 83 81 86 Resp: 19 19 16 20 Temp: 37.1 ?C (98.7 ?F) SpO2: 91% 95% 97% 97% Intake/Output: I/O last 3 completed shifts: In: 1015 (11.8 mL/kg) [P.O.:1015] Out: 2000 (23.3 mL/kg) [Other:1999] Weight: 85.7 kg Intake/Output Summary (Last 24 hours) at 04/09/2024 0637Last data filed at 04/09/2024 0440 Gross per 24 hour Intake 815 ml Output -- Net 815 ml Net intake/output since admission: Net IO Since Admission: -10,160.6 mL[04/09/24 0637] PHYSICAL EXAM General Appearance: no acute distress, no pallorHEENT: Extra ocular movements intact, no scleral icterus, mucous membrane moist, external ears normal Neck: Supple, FROM Lungs: respiratory effort normal, CTA bilaterally, no wheezes/rales/rhonchi Heart: Regular rate and regular rhythm, no murmur Abdomen: soft, non-tender, non-distended MSK/Extremities: pulses 2+. No obvious deformity. 2+ edema in BLE. Skin: No lesions, no rash. No jaundice. TDC Neurologic: AOx3, no focal deficits, speech clear Psych: Mood congruent affect, responds appropriately to questions. SCHEDULED HOSPITAL MEDICATIONSapixaban, 2.5 mg, Oral, q12h DIRK aspirin EC, 162 mg, Oral, q8h bisacodyl, 10 mg, Rectal, Daily calcium gluconate, 2 g, Intravenous, Once clopidogrel, 75 mg, Oral, Daily Ensure Enlive, 1 Container, Oral, BID gabapentin, 200 mg, Oral, BID [Held by provider] hydrALAZINE, 25 mg, Oral, q8h insulin glargine, 20 Units, Subcutaneous, Every evening lidocaine, 1 patch, Apply externally, Daily pantoprazole, 40 mg, Intravenous, q24h DIRK polyethylene glycol (PEG) 3350, 17 g, Oral, Daily sennosides, 2 tablet, Oral, Daily sodium chloride, 500 mL, Intravenous, Once PRN Medications: PRN medications: dextrose, dextrose, glucagon, heparin, insulin lispro, ipratropium-albuterol, melatonin, menthol-zinc oxide, oxyCODONE, [COMPLETED] Insert peripheral IV AND [COMPLETED] Saline lock IV AND sodium chloride, [COMPLETED] Insert peripheral IV AND [COMPLETED] Saline lock IV AND sodium chloride Drips: LABS Results from last 7 days Lab Units 04/09/24 01104/08/24 00004/07/24 0215 WBC 10*3/uL 16.39* 15.56* 11.22* HEMOGLOBIN g/dL 8.5* 8.4* 7.9* MCV fL 84.7 84.4 84.0 Results from last 7 daysLab Units 04/09/24 0115 04/08/24 0009 04/07/24 0215 WBC 10*3/uL 16.39* 15.56* 11.22* HEMOGLOBIN g/dL 8.5* 8.4* 7.9* MCV fL 84.7 84.4 84.0 Results from last 7 daysLab Units 04/09/24 0115 04/08/24 0009 04/07/24 0215 04/06/24 0147 04/05/24 0516 SODIUM mEq/L 128* 129* 128* 127* -- POTASSIUM mEq/L 6.5* 5.6* 4.6* 4.3 -- CHLORIDE mEq/L 98 98 98 99 -- CO2 mEq/L 20.1 20.2 22.0 24.3 -- BUN mg/dL 82* 67* 56* 41* -- PHOSPHORUS mg/dL -- -- 5.9* 4.4 2.9 Results from last 7 daysLab Units 04/09/24 0115 04/08/24 0009 04/07/24 0215 AST U/L 14 19 22 ALT U/L 35 122* 291* Results from last 7 daysLab Units 04/06/24 0147 04/05/24 1726 04/05/24 1152 04/05/24 0516 INR -- 1.22* 1.20* 1.24* PROTIME Seconds -- 15.7* 15.5* 15.9* PTT Seconds 52.4* 60.7* 34.5 48.5* No lab exists for component: "APH", "APCO2", "APO2"No lab exists for component: "POCGLU" Microbiology:No results found for the last 90 days. OTHER DATA Radiology Review:No results found. L PRESSER * Itz Paez MD - 04/09/2024 6:27 AM WHEEL PRESSER ME Nephrology Progress Note Chief Complaint: had concerns including Fall. Nephrology following for: Acute Kidney Injury Assessment & Plan: Elvis Freeman is a 63 y/o F with PMH of DM who presented via EMS after being found unresponsive by family. She was noted to have complete heart block with inferior STEMI now s/p placement of temporary pacer and LHC w/ stent x 1 on 03/27. Nephrology is following for acute renal failure requiring CRRT. Off CRRT, now transitioning to HD. Initially GUILHERME requiring dialysis, however has now progressed to ESRD s/p TDC on 04/06. Recommendations: - Plan for HD today - Continue strict I/Os - Infectious work-up and management per CCU and PCCM - SW/CM consult to assist with arranging HD on discharge- (pending HD chair) - f/u hepatitis B surface Ag, surface antibody, and total core antibody ESRD GUILHERME requiring dialysis, non-recovered - Likely ischemic ATN in setting of hemodynamic instability, sepsis, and possible underlying chronic kidney disease - Unknown Cr baseline - Cr 2.77 on admission, peaked at 5.88 on 03/29 - Renal U/S showed bilateral parenchymal disease - Guevara in place, patient remains anuric - On CRRT as of 03/29, aiming for net even initially - CRRT stopped in evening 04/02 - Cr 1.67 -> 2.20 after stopping CRRT, electrolytes stable - Cr 4.51 as of 04/05 - Patient will need HD chair set up outpatient - s/p PUF 04/03 and 04/07, HD 04/04 and 04/05 Volume status:- Some slight signs of volume overload with congestive hepatopathy, pleural effusions - Received PUF 04/03, removing 3L - 3.5L removed with HD 04/05 - I/O: net -2.5L on 04/05 - Will manage with HD Hypoalbuminemia- Albumin: 1.9 - Urine protein >300 - Albumin/Globulin ratio: 0.45 Electrolytes:- Stable and appropriate - Optimize with PUTTYING AND CALKING SUPERVISOR Acid-Base:- Bicarb 24.3 Normocytic anemia:- Hgb 6.8 -> 8.9 post-transfusion 03/28 - Hgb now stable at 8.6 - Iron: 18 - Ferritin 663-> 118.8 Case discussed with attending. [facility] 20[facility] 6:27 AM --Subjective: No acute events overnight. Patient feels SOB at this time. Was getting HD while in room. Was on 1 liter on nasal cannula. Still felt a like she was retaining fluid. Objective: Vitals:04/09/24 0305 04/09/24 0400 04/09/24 0500 04/09/24 0600 BP: 116/68 138/60 125/59 118/71 Pulse: 93 83 81 86 Resp: 19 19 16 20 Temp: 37.1 ?C (98.7 ?F) SpO2: 91% 95% 97% 97% Intake/Output Summary (Last 24 hours) at 04/09/2024 0627Last data filed at 04/09/2024 0440 Gross per 24 hour Intake 815 ml Output -- Net 815 ml Physical Exam:Constitutional: General: She is not in acute distress. Appearance: Normal appearance. She is not ill-appearing. HENT: Head: Normocephalic and atraumatic. Right Ear: External ear normal. Left Ear: External ear normal. Cardiovascular: Rate and Rhythm: Normal rate and regular rhythm. Pulses: Normal pulses. Heart sounds: Normal heart sounds. Pulmonary: Effort: Pulmonary effort is normal. No respiratory distress. Breath sounds: Normal breath sounds. Abdominal: General: There is no distension. Palpations: Abdomen is soft. Tenderness: There is no abdominal tenderness. Musculoskeletal: General: Normal range of motion. Right lower leg: Edema (2+ pitting edema bilaterally) present. Left lower leg: Edema (2+ pitting edema bilaterally) present. Skin: General: Skin is warm. Coloration: Skin is not jaundiced. Findings: No bruising. Neurological: General: No focal deficit present. Mental Status: She is alert and oriented to person, place, and time. Dialysis Access: Right IJ Medications:Scheduled: apixaban, 2.5 mg, Oral, q12h DIRK aspirin EC, 162 mg, Oral, q8h bisacodyl, 10 mg, Rectal, Daily calcium gluconate, 2 g, Intravenous, Once clopidogrel, 75 mg, Oral, Daily Ensure Enlive, 1 Container, Oral, BID gabapentin, 200 mg, Oral, BID [Held by provider] hydrALAZINE, 25 mg, Oral, q8h insulin glargine, 20 Units, Subcutaneous, Every evening lidocaine, 1 patch, Apply externally, Daily pantoprazole, 40 mg, Intravenous, q24h [facility] polyethylene glycol (PEG) 3350, 17 g, Oral, Daily sennosides, 2 tablet, Oral, Daily sodium chloride, 500 mL, Intravenous, Once Infusions: Data:Labs and imaging reviewed. Lab Results Component Value Date BUN 82 (H) 04/09/2024 Results from last 7 daysLab Units 04/09/24 0115 04/08/24 0009 04/07/24 0215 CREATININE mg/dL 6.88* 6.03* 5.57* Electrolytes:LYTES - Na/K/Cl/CO2: 128*/6.5*/98/20.1 (04/09 011) Lab ResultsComponent Value Date Calcium Lvl 8.7 04/09/2024 Phosphorus Lvl 5.9 (H) 04/07/2024 Lab ResultsComponent Value Date Hgb 8.5 (L) 04/09/2024 Cosigned by Shashank Pizano MD at 04/09/2024 9:13 PM WHEEL PRESSER L PRESSER L PRESSER Associated attestation - Shashank Pizano MD - 04/09/2024 9:13 PM CST ATTENDING NOTE I evaluated this medically complex patient, reviewed the laboratory data and imaging, discussed the pertinent case findings with the resident/fellow, and agree with the exam, assessment and plan as documented below. Plan and exam discussed with the primary team. Merrill Hatfield Professor Division of Renal Diseases and Hypertension [facility] | [facility] Contact: [facility] secure chat | [phone] * Gagan Riley, TILE CONDUIT LAYER - 04/08/2024 9:15 AM [facility] Physical Therapy Treatment Session Note Patient Name: Elvis Freeman Today's Date: 04/08/2024 Preferred Language: [place] Assessment & Plan Assessment: PT Assessment: Pt able to significantly increase gait distance while requiring less assitance, thus is progressing towards goals in POC. However, pt limited 2/2 overall deconditioning. Pt will benefit from continued skilled PT to increase activity tolerance. Prognosis: Excellent Barriers to Discharge: Complicated medical history Evaluation/Treatment Tolerance: Patient tolerated treatment well, Patient limited by fatigue Medical Staff Made Aware: Yes Strengths: Attitude of self, Premorbid level of function, Support of extended family/friends Plan: Treatment Plan/Goals Established with Patient/Caregiver: Yes Treatment/Interventions: Balance training, Bed mobility training, Gait training, Functional activities, Transfer training PT Plan: Skilled PT PT Discharge Recommendations: Outpatient PT Equipment Recommended: Walker- rolling PT Recommended Transfer Status: Stand by assist PT- Okay to Discharge from Therapy: Yes Therapy discharge recommendations are made by determining the patient's prior level of function, assessing current function level and establishing rehab potential. The overall discharge plan may be affected by input from Physicians, Care Coordination, medical condition/status, family support and insurance benefits. Subjective "I want to walk, so I can get home" "Thank you so much" Pain: 0/10 Health Conditions Objective General Visit Information: PT Last Visit PT Received On: 04/08/24 Response to Previous Treatment: Patient with no complaints from previous session. Activity Tolerance: Endurance: Tolerates 30 min exercise with multiple rests Sitting Balance: Sits without support for more than 30 sec Early Mobility/Exercise Safety Screen: Proceed with mobilization - No exclusion criteria met CognitionOverall Cognitive Status: Within Functional Limits Treatment RN denies acute issues. Pt supine with son present, and agreeable to session.Pt completes supine warm-up while room prepped for mobility. Pt impulsively attempts to transfer to EOB, although receptive to VC's to increase safety. Pt completes supine>sit transfer when ready, CGA. Pt then stands to RW and amb into RR to complete a BM, additional time required. When finished, pt completed rafa-care, stood to RW, and initiated amb into hallway , all CGA, (see gait section. Pt eventually returned to room and transferred into bedside chair. Pt ultimately left sitting C in position of comfort, with essentials in reach, lines intact, VSS, and in care of son. RN made aware. Therapeutic activity:Therapeutic Activity Therapeutic Activity Time Entry: 10 Therapeutic Activity 1: Transfers Bed Mobility 1:Level of Assistance 1: Supervision/touching assistance Bed Mobility To/From: Roll left/right Assistive Devices And Adaptive Equipments: Bed rail Bed Mobility 2:Level of Assistance 2: Supervision/touching assistance Bed Mobility To/From: Supine to sit on EOB Assistive Devices And Adaptive Equipments: No device Transfers 1: Technique 1: Stand step Level of Assistance 1: Supervision/touching assistance Trials/Comments 1: 3 Transfer To/From: Lka-nl-Xyheh/Zakwy-pb-Jcf Assistive Devices And Adaptive Equipments: Walker, front-wheeled Transfers 2:Technique 2: Via walking Level of Assistance 2: Supervision/touching assistance Transfer To/From: Bed, Toilet Assistive Devices And Adaptive Equipments: Walker, front-wheeled Transfers 3:Technique 3: Via walking Level of Assistance 3: Supervision/touching assistance Transfer To/From: Toilet, Bed Assistive Devices And Adaptive Equipments: Walker, front-wheeled Gait training: Gait Training Time Entry: 15 Gait Training Activity 1:Distance (enter in feet): 20ft; 150ft Gait Training Activity 1: Indoor surface Assistive Devices And Adaptive Equipments: Walker, front-wheeled Level of Assistance 1: Supervision/touching assistance Gait Training Activity 1 Comment: Pt amb with varying kimberley, and demo's slight path deviation, although no overt LOB to note. AM-PAC Basic Mobility:AM-PAC Basic Mobility Inpatient Turning in bed without bedrails: None Lying on back to sitting on edge of flat bed: A Little Bed to chair: A Little Standing up from chair: A Little Walk in room: A Little Climbing 3-5 stairs: A Lot Mobility Inpatient Raw Score: 18 JH-HLM Goal: 6 Mobility: Highest Level of Mobility Performed (JH-HLM)JH-HLM Goal: 6 Highest Level of Mobility Performed (JH-HLM): Walked 25 feet or more (i.e. walked outside of room) Modified Bridgett Patient Education: Education Documentation No documentation found. Education Comments No comments found. Goals:Encounter Goals Encounter Goals (Active) Patient will perform grooming with mod I standing at sink. Start: 04/02/24 Expected End: 05/02/24 Pt will perform >8 min of OOB ADL routine with no rest breaks to improve overall activity tolerance. Start: 04/02/24 Expected End: 05/02/24 Pt will be mod I with bed mobility Start: 04/02/24 Expected End: 04/26/24 Pt will amb 400' mod I Start: 04/02/24 Expected End: 04/26/24 Within 2 weeks of starting therapy, the patient and/or family/caregiver will demonstrate independence and be compliant in a written HEP in order to maximize gains made during therapy. Start: 04/02/24 Expected End: 12/04/24 Pt will be mod I with all transfers Start: 04/02/24 Expected End: 04/26/24 Supervising Physical Therapist: Miguel Villalobos Treatment Note: If this is the last documented treatment, then it will signify discharge from acute care prior to discharge from the therapy service and will serve as the discharge summary. Gagan Lin PTA L PRESSER * Jayla Grewal MD - 04/08/2024 6:21 AM [facility] CCU Progress Note Admission Date: 03/27/2024 CCU Day: 12 Problem List Principal Problem: ST elevation myocardial infarction (STEMI) of inferior wall (HCC) Active Problems: Heart block Hyperglycemia due to diabetes mellitus (CMS/HCC) (HCC) On mechanically assisted ventilation (CMS/HCC) (HCC) Fall GUILHERME (acute kidney injury) (HCC) Acute respiratory alkalosis Anemia of chronic disease Toxic metabolic encephalopathy Acute hypoxemic respiratory failure (HCC) Atelectasis Cardiogenic shock (HCC) Severe sepsis (HCC) Shock liver Hyperkalemia Pleural effusion, bilateral Adrenal nodule (HCC) Pleuritic chest pain Shock (CMS/HCC) (HCC) Assessment & Plan Ms. Freeman is a 63-year-old female presented by EMS after being found down and unresponsive by family and determined to be in complete heart block, now s/p placement of temporary pacer -- CHB/ECG changes concerning for STEMI - s/p Temp Pacer, LHC showed 100% RCA occlusion s/p PCI with HARI x1 to mid RCA (via R Fem access). Updates: 04/08 - Nephro - declared ESRD, IR - TDC placement occurred 04/06 >> pending outpatient HD chair - CRRT - 2.0 L removed yesterday - Outpatient HD chair - working on securing placement Cardiovascular: #STEMI s/p PCI with HARI to mid RCA (100% RCA occlusion) #CAD #Complete Heart Block, resolved #Atrial Fibrillation - EP to evaluate for permanent pacemaker - EKG now paced - troponin initially 1846 > 2205 > 8000 -Patient s/p PCI with HARI, currently HDS and extubated 03/28, loaded with Brilinta/Aspirin during procedure - TTE (03/31): EF 60-65%, RV normal systolic fxn, LA mild dilation Plan - Continue ASA 81, started Plavix - Holding Statin for now given elevated LFT's, will resume when resolved - Hydral 25mg q8h - held for now given lower BP's on medication - Will transition Heparin to Eliquis today Neurology: - Pain control: Tylenol prn - Fall precautions - CT head negative Respiratory: Acute respiratory failure Pulmonary edema Dyspnea - Extubated 03/28 - CXR 04/01 with worsening diffuse opacities, CXR 04/05 with continued interstitial opacities - Will pull fluids with HD - Aspiration precautions - s/p PUF 04/06/24 with 2.2 L removed, s/p TDC placement with IR Plan: - Continue HD MWF planned per Nephro Gastroenterology: #Transaminitis, improving - Likely shock liver- finally down trending 04/01 - Nutrition, heart healthy diet - PUD ppx - BM Plan: -Trend LFT's Renal: #ESRD #GUILHERME on CKD - Cr 2.75, unknown baseline - monitor UOP - pt anuric -Cr uptrending, with urine output decreasing - Renal US Bilateral renal parenchymal disease. - nephrology consulted, initated CRRT 03/29 Plan: - Urine Lytes, Urine Protein/Creatinine - HD chair need outpatient, declared ESRD, working on outpatient HD chair - IR - TDC placement - 04/06 - monitor urine output - Will trial HD on TDC Infectious Disease: #Persistent Fever, concern for Sepsis #Leukocytosis, improving #Lactic acidosis, improved - Afebrile since 03/28 2000 - Lactic acid 5.32 -> 2.34 -> 1.33 - Continue vanc, kimberly - cultures negative to date but patient was taking abx days prior for dental abscess - CT maxillofacial: diffuse periodontal disease, some soft tissue swelling in L vestibular/buccal space but no abscess Hematology: #Anemia - family reports no hx - Hb 8.0 yesterday - Hb 7.1, after PCI - no signs of bleeding - Hb 03/29 6.8 > transfused 1 U pRBC, responded appropriately Plan - CTM - Follow-up Iron studies (send out lab 2-3 days) - Will transfuse to keep Hgb >7.0 Endocrinology: - on home insulin +/- metformin - Goal BS: 140-180 - glucose checks q4 - A1c 10.4 - TSH 0.914 Plan: -Glargine 5u daily -SSI -CTM DVT PPX: Heparin SubQ PUD PPX : Protonix Diet: Heart healthy PT/OT indicated: consulted Lines: Peripheral IV x 2, G tube, Guevara Catheter Guevara: day 1 Code status: FULL Dispo: pending clinical stablility Contact: see separate note for contact info Patient staffed with attending physician, Dr. Gayle. Jayla White MD Internal Medicine | PGY-1 [facility] | [facility] Subjective Overnight, no events/concerns. This morning patient reports breathing better. Objective Vital Signs Current: Visit Vitals BP 126/69 Pulse 84 Temp 36.6 ?C (97.8 ?F) (Temporal) Resp 17 24 Hour: Vitals: 04/08/24 0300 04/08/24 0400 04/08/24 0500 04/08/24 0600 BP: 122/76 114/82 120/78 126/69 Pulse: 79 81 83 84 Resp: Temp: 36.6 ?C (97.8 ?F) SpO2: 97% 98% 97% 98% Intake/Output: I/O last 3 completed shifts: In: 490.4 (5.7 mL/kg) [P.O.:400; I.V.:90.4 (1.1 mL/kg)] Out: 2200 (25.7 mL/kg) [Other:2200] Weight: 85.7 kg Intake/Output Summary (Last 24 hours) at 04/08/2024 0621Last data filed at 04/07/2024 2316 Gross per 24 hour Intake 450 ml Output 2000 ml Net -1550 ml Net intake/output since admission: Net IO Since Admission: -10,975.6 mL[04/08/24 0621] PHYSICAL EXAM General Appearance: no acute distress, no pallorHEENT: Extra ocular movements intact, no scleral icterus, mucous membrane moist, external ears normal Neck: Supple, FROM Lungs: respiratory effort normal, CTA bilaterally, no wheezes/rales/rhonchi Heart: Regular rate and regular rhythm, no murmur Abdomen: soft, non-tender, non-distended MSK/Extremities: pulses 2+. No obvious deformity. 2+ edema in BLE. Skin: No lesions, no rash. No jaundice. CRRT running at [facility] site Neurologic: AOx3, no focal deficits, speech clear Psych: Mood congruent affect, responds appropriately to questions. SCHEDULED HOSPITAL MEDICATIONSapixaban, 2.5 mg, Oral, q12h DIRK aspirin EC, 162 mg, Oral, q8h bisacodyl, 10 mg, Rectal, Daily calcium gluconate, 2 g, Intravenous, Once clopidogrel, 75 mg, Oral, Daily Ensure Enlive, 1 Container, Oral, BID gabapentin, 200 mg, Oral, BID [Held by provider] hydrALAZINE, 25 mg, Oral, q8h insulin glargine, 20 Units, Subcutaneous, Every evening lidocaine, 1 patch, Apply externally, Daily pantoprazole, 40 mg, Intravenous, q24h DIRK polyethylene glycol (PEG) 3350, 17 g, Oral, Daily sennosides, 2 tablet, Oral, Daily sodium chloride, 500 mL, Intravenous, Once PRN Medications: PRN medications: dextrose, dextrose, glucagon, heparin, insulin lispro, ipratropium-albuterol, melatonin, menthol-zinc oxide, oxyCODONE, [COMPLETED] Insert peripheral IV AND [COMPLETED] Saline lock IV AND sodium chloride, [COMPLETED] Insert peripheral IV AND [COMPLETED] Saline lock IV AND sodium chloride Drips: LABS Results from last 7 days Lab Units 04/08/24804/07/2421404/06/24146 WBC 10*3/uL 15.56* 11.22* 11.98* HEMOGLOBIN g/dL 8.4* 7.9* 8.6* MCV fL 84.4 84.0 83.8 Results from last 7 daysLab Units 04/08/24804/07/2421404/06/24146 WBC 10*3/uL 15.56* 11.22* 11.98* HEMOGLOBIN g/dL 8.4* 7.9* 8.6* MCV fL 84.4 84.0 83.8 Results from last 7 daysLab Units 04/08/24804/07/2421404/06/2414604/05/24 0516 SODIUM mEq/L 129* 128* 127* -- POTASSIUM mEq/L 5.6* 4.6* 4.3 -- CHLORIDE mEq/L 98 98 99 -- CO2 mEq/L 20.2 22.0 24.3 -- BUN mg/dL 67* 56* 41* -- PHOSPHORUS mg/dL -- 5.9* 4.4 2.9 Results from last 7 daysLab Units 04/08/24 0009 04/07/24 0215 04/06/24 0147 AST U/L 19 22 39 ALT U/L 122* 291* 466* Results from last 7 daysLab Units 04/06/24 0147 04/05/24 1726 04/05/24 1152 04/05/24 0516 INR -- 1.22* 1.20* 1.24* PROTIME Seconds -- 15.7* 15.5* 15.9* PTT Seconds 52.4* 60.7* 34.5 48.5* No lab exists for component: "APH", "APCO2", "APO2"No lab exists for component: "POCGLU" Microbiology:No results found for the last 90 days. OTHER DATA Radiology Review:No results found. Cosigned by Carla Gayle MD at 04/08/2024 9:17 AM CST L PRESSER L PRESSER Associated attestation - Carla Gayle MD - 04/08/2024 9:17 AM CST The patient was seen and examined with the resident and/or fellow. The relevant lab results, imaging and EKGs were personally reviewed, and the medications were reconciled. I agree with above mentioned assessment and plan. -- Pt with inf STEMI, now s/p RCA PCI, normal BiV function-- Septic shock - antibiotic course finished -- GUILHERME - on iHD now, tunnel catheter in, pending HD chair -- Pericarditis - resolving, on aspirin -- CHB - resolved - will be discharged home on Event monitor, EP consult -- She will be discharged home with home health, on event monitor, and HD chair Patient Active Problem ListDiagnosis Date Noted Pleuritic chest pain 04/05/2024 ST elevation myocardial infarction (STEMI) of inferior wall (HCC) 03/28/2024 Heart block 03/27/2024 Hyperglycemia due to diabetes mellitus (CMS/HCC) (HCC) 03/27/2024 On mechanically assisted ventilation (CMS/HCC) (HCC) 03/27/2024 Fall 03/27/2024 GUILHERME (acute kidney injury) ([facility] 03/27/2024 Acute respiratory alkalosis 03/27/2024 Anemia of chronic disease 03/27/2024 Toxic metabolic encephalopathy 03/27/2024 Acute hypoxemic respiratory failure (HCC) 03/27/2024 Atelectasis 03/27/2024 Cardiogenic shock (HCC) 03/27/2024 Severe sepsis (HCC) 03/27/2024 Shock liver 03/27/2024 Hyperkalemia 03/27/2024 Pleural effusion, bilateral 03/27/2024 Adrenal nodule (HCC) 03/27/2024 Shock (CMS/HCC) ([facility]) 03/27/2024 * Aicha Lozano MD - 04/07/2024 8:46 AM [facility]EL [facility] ICU Attending Attestation I have independently examined and discussed the patient with the team. I have also personally reviewed the laboratory and diagnostic data. Below are my modifications or additions. Chief Complaint Patient presents with Fall HPI: Elvis Freeman ( 1960) is a 64 year old female who was brought in by EMS after being found down and unresponsive by family and determined to be in complete heart block with Inferior STEMI, now s/p placement of temporary pacer and intubated for airway protection. LHC revealed 100% occlusion of mid RCA, s/p stent x 1 on 03/27 . She since then has been extubated and is continuing to undergo dialysis for volume removal and is newly declared ESRD. 24 Hour Events: No acute events overnight ROS: Review of SystemsConstitutional: Positive for fatigue. HENT: Negative. Eyes: Negative. Respiratory: Negative. Cardiovascular: Positive for leg swelling. Gastrointestinal: Negative. Endocrine: Negative. Genitourinary: Negative. Allergic/Immunologic: Negative. Neurological: Negative. Denies any CPDenies any SOB Intake and Output: Intake/Output Summary (Last 24 hours) at 04/07/2024 0847Last data filed at 04/07/2024 0400 Gross per 24 hour Intake 300 ml Output 2200 ml Net -1900 ml Physical Exam: Visit Vitals BP 117/68 Pulse 75 Temp 36.9 ?C (98.5 ?F) (Oral) Resp (!) 28 Ht 1.651 m (5' 5") Wt 85.7 kg (188 lb 15 oz) SpO2 100% BMI 31.44 kg/m? Smoking Status Unknown BSA 1.98 m? General: In no acute distress. HEENT: No scleral icterus. Moist mucous membranes. Respiratory: Clear to auscultation bilaterally. No conversational dyspnea. Cardiovascular: Regular rate and rhythm. No murmurs, rubs, or gallops. Abdomen: Soft, non-tender, non-distended. Bowel sounds present. No guarding or rebound. Musculoskeletal: No obvious deformity. Extremities: Symmetric. No cyanosis or clubbing. There is edema bilaterally in lower extremities Skin: No lesions or rahses. Jaundice absent. Psych: Normal mood and affect Labs:Pertinent Labs : Labs in chart were reviewed. Echo:Left Ventricle: Left ventricle size is normal. Mildly increased wall thickness in the left ventricle. Findings consistent with concentric remodeling. Normal systolic function with an estimated EF of 55 - 60%. Global longitudinal strain is normal. Unable to assess diastolic function in the left ventricle. Left Atrium: Left atrium is mildly dilated. Right Ventricle: Right ventricle size is normal. Normal systolic function in the right ventricle. Right Atrium: Right atrium size is normal. Aortic Valve: Aortic valve is trileaflet. Mildly thickened leaflets in the aortic valve. Mildly calcified noncoronary leaflet in the aortic valve. No aortic regurgitation present. No aortic stenosis present. Mitral Valve: No leaflet thickening in the mitral valve. No leaflet calcification in the mitral valve. Severe posterior mitral annular calcification. Mild to moderate mitral regurgitation present. Mild mitral stenosis present. Mean transmitral gradient 7 mmHg at HR 122 bpm Tricuspid Valve: Tricuspid valve is structurally normal. Mild tricuspid regurgitation present. RVSP is 46.00 mmHg. Mild pulmonary hypertension present. RVSP is 46.00 mmHg. Mitral Valve: No leaflet thickening in the mitral valve. No leaflet calcification in the mitral valve. Severe posterior mitral annular calcification. Mild mitral regurgitation present. Mild to moderate mitral stenosis present. Pulmonic Valve: Pulmonic valve not well visualized. IVC/SVC: IVC diameter is greater than 21 mm and decreases less than 50% during inspiration; therefore the estimated right atrial pressure is elevated (~15 mmHg). Aorta: Normal sized aortic root, sinus of Valsalva and ascending aorta present. Pericardium: Small circumferential pericardial effusion present. No indication of cardiac tamponade present. Evidence includes no chamber collapse and no respiratory transvalvular variation. Left pleural effusion present. Imaging: IR CVC tunneled Result Date: 04/06/2024 PROCEDURE: IR Tunneled hemodialysis catheter placement PROCEDURE: Tunneled hemodialysis catheter insertion under fluoroscopic and ultrasound guidance PROCEDURE: Ultrasound of the [right] neck CLINICAL INDICATION: ESRD requiring long-term hemodialysis access Physician[s]: Chiquis Keys MD Procedure: The patient was advised of the benefits, risks, and alternatives of the procedure and informed consent was obtained. A time out was performed with verification of the patient's name, MRN, site of procedure, and type of procedure to be performed. The patient was positioned in the supine position on the angiographic table. The site was prepped and draped in the usual sterile fashion. Moderate sedation was performed by the physician including the presence of an independent trained observer that assisted in monitoring the patient's level of consciousness and physiological status. Following the administration of midazolam the physician spent 30 minutes of continuous aoni-iy-wsdl time with the patient. Ultrasound of the neck reveals a patent and compressible right internal jugular vein. A superintendent radio communications radiograph reveals no relevant abnormality and a temporary hemodialysis cath in situ. The neck and anterior chest wall were anesthetized with lidocaine. The right internal jugular vein was accessed with ultrasound guidance using a microintroducer needle via a lateral approach. A 0.018 cope wire was advanced into the inferior vena cava. Incisions at the internal jugular access site and anterior chest wall were made using a scalpel. The needle was removed and a 6.5 Lithuanian peel-away sheath was advanced over the wire and into the superior vena cava. A 23 cm glidepath catheter was inserted through subcutaneous tissues of the chest wall with a tunneling device. The catheter was then measured and cut. The wire and insert were removed from the peel-away sheath. The catheter was passed into the internal jugular vein via the sheath. The peel-away sheath was then removed. The catheter tip was positioned in the upper right atrium. The puncture site was closed with Dermabond. The catheter was secured in place using a 2-0 Prolene. The catheter access site was cleansed and sterile dressings were applied. At the conclusion of the procedure, the ports of the catheter aspirated and flushed freely. The patient tolerated the procedure well and was returned to the PRU in stable condition. EBL: < 5 mL. Complications: None. Radiation dose: 4.35 mGy Fluoroscopy time: 0.3 min IMPRESSION: Successful placement of a Tunneled hemodialysis catheter tunneled Power Gudino catheter. The catheter is ready for immediate use. Attestation Attending: Chiquis Keys MD I attest that I was present for the entire procedure. Medications: apixaban, 2.5 mg, Oral, q12h DIRK aspirin EC, 162 mg, Oral, q8h bisacodyl, 10 mg, Rectal, Daily calcium gluconate, 2 g, Intravenous, Once clopidogrel, 75 mg, Oral, Daily Ensure Enlive, 1 Container, Oral, BID gabapentin, 200 mg, Oral, BID [Held by provider] hydrALAZINE, 25 mg, Oral, q8h insulin glargine, 20 Units, Subcutaneous, Every evening lidocaine, 1 patch, Apply externally, Daily pantoprazole, 40 mg, Intravenous, q24h DIRK polyethylene glycol (PEG) 3350, 17 g, Oral, Daily sennosides, 2 tablet, Oral, Daily sodium chloride, 500 mL, Intravenous, Once PRN medications: dextrose, dextrose, glucagon, heparin, insulin lispro, ipratropium-albuterol, melatonin, menthol-zinc oxide, oxyCODONE, [COMPLETED] Insert peripheral IV AND [COMPLETED] Saline lock IV AND sodium chloride, [COMPLETED] Insert peripheral IV AND [COMPLETED] Saline lock IV AND sodium chloride Vent: FiO2 (%): [30 %] 30 % S RR: [12] 12 PEEP/CPAP (cm H2O): [5 cm H2O] 5 cm H2O Problem List:-inferior STEMI s/p PCI to RCA on 03/27/24 -complete heart block - suspected to be ischemic which is now resolved with intermittent episodes of bradycardia and prolonged TN interval -acute hypoxic respiratory failure - likely due to pulmonary edema -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 -HFmrEF - LVEF 60-65% with preserved RV function; significant MAC with mild MS -elevated liver enzymes - suspect related to low flow state and hypotension - improving -paroxysmal atrial fibrillation (CHADSVASc 4) -possible post DE pericarditis -type 2 DM with hyperglycemia (A1c of ~10) -anemia - likely nutritional and chronic disease with some component of blood loss acutely -restless leg syndrome -history of fall -history of cholecystectomy -history of adrenal nodule -possible sepsis - resolved -delirium - resolved Assessment/Plan: Neuro/Psych: Delirium precautionsResp: IS/VEP Cardiac: MAP > 65, no current vasopressors -currently on DAPT; statin on hold (due to liver injury) - high dose ASA for pericarditis -continue to monitor for bradyarrythmias; plan for event monitor at discharge due to 1st degree AVB Did have some afib on telemetry today, get EKG now GI: Tube feeds, SUP, bowel regimen LFTs downtrending Renal: Monitor function and I/Os, replace electrolytes On HD, Renal following for iHD Dialysis done yesterday TDC placed on 04/06/24 Endo: Check sugars, keep < 180 Adjust insulin regimen, on lantus/SSI Heme/Onc: Monitor Hgb and platelets closely, currently no bleeding On Heparin GTT for afib ID: Monitor fever curve and WBC count -completed 7 days of empiric BSAB (vancomycin/meropenem). Continue to monitor clinically and WBC/fever curve off antibiotics MSK/Rheum/Derm: PT/OT when applicable ICU Quality:HOB > 30 degrees Restraints: No Stress Ulcer: PPI DVT ppx: Plan for Eliquis Lines: tunneled dialysis catheter Guevara: Not Indicated Lines, tubes, drains: Peripheral IV 03/31/24 Anterior;Left Forearm (Active)Placement Date/Time: 03/31/24 0000 Size (Gauge): 20 G Orientation: Anterior;Left Location: Forearm Technique: Ultrasound guidance Number of days: 7 Peripheral IV 03/31/24 Anterior;Left;Upper Arm (Active)Placement Date/Time: 03/31/241999 Size (Gauge): 20 G Orientation: Anterior;Left;Upper Location: Arm Technique: Ultrasound guidance Number of days: 7 Hemodialysis Cath Double Lumen 04/06/24 Right Tunneled catheter Internaljugular vein (Active) Placement Date/Time: 04/06/24 1544 Hand Hygiene Completed: Yes Site Prep: Alcohol;Betadine Site Prep Agent has Completely Dried Before Insertion: Yes All 5 Sterile Barriers Used (Gloves, Gown, Cap, Mask, Large Sterile Drape): Yes Local Anestheti... Number of days: 1 Dispo: Remain in ICU Code Status: No Order Medical Decision Maker: Patient. Capacity: Full capacity This patient is critically ill due to presenting with an illness that impairsone or more vital organ systems. There was a high probability of imminent or life threatening deterioration in the patient's condition. I spent 35 cumulative minutes of non-concurrent critical care time directly related to this individual patient's care involving the evaluation, coordination, and management of the patient. This includes only time spent at the immediate bedside or elsewhere on the patient's floor or unit coordinating this patient's care and is not inclusive of any time spent performing invasive procedures. Aicha Lozano MDUT Pulmonary and Critical Care Attending L PRESSER * Itz Paez MD - 04/07/2024 7:28 AM WHEEL PRESSER ME Nephrology Progress Note Chief Complaint: had concerns including Fall. Nephrology following for: Acute Kidney Injury Assessment & Plan: Elvis Freeman is a 63 y/o F with PMH of DM who presented via EMS after being found unresponsive by family. She was noted to have complete heart block with inferior STEMI now s/p placement of temporary pacer and LHC w/ stent x 1 on 03/27. Nephrology is following for acute renal failure requiring CRRT. Off CRRT, now transitioning to HD. Initially GUILHERME requiring dialysis, however has now progressed to ESRD s/p TDC on 04/06. Recommendations: - Two hours of CRRT today - Continue strict I/Os - Infectious work-up and management per CCU and PCCM - SW/CM consult to assist with arranging HD on discharge - f/u hepatitis B surface Ag, surface antibody, and total core antibody - Will plan for PUF today, goal 3L over 2 hours ESRD GUILHERME requiring dialysis, non-recovered - Likely ischemic ATN in setting of hemodynamic instability, sepsis, and possible underlying chronic kidney disease - Unknown Cr baseline - Cr 2.77 on admission, peaked at 5.88 on 03/29 - Renal U/S showed bilateral parenchymal disease - Guevara in place, patient remains anuric - On CRRT as of 03/29, aiming for net even initially - CRRT stopped in evening 04/02 - Cr 1.67 -> 2.20 after stopping CRRT, electrolytes stable - Cr 4.51 as of 04/05 - Patient will need HD chair set up outpatient - s/p PUF 04/03, HD 04/04 and 04/05 Volume status:- Some slight signs of volume overload with congestive hepatopathy, pleural effusions - Received PUF 04/03, removing 3L - 3.5L removed with HD 04/05 - I/O: net -2.5L on 04/05 - Will manage with HD Hypoalbuminemia- Albumin: 1.9 - Urine protein >300 - Albumin/Globulin ratio: 0.45 Electrolytes:- Stable and appropriate - Optimize with PUTTYING AND CALKING SUPERVISOR Acid-Base:- Bicarb 24.3 Normocytic anemia:- Hgb 6.8 -> 8.9 post-transfusion 03/28 - Hgb now stable at 8.6 - Iron: 18 - Ferritin 663-> 118.8 Case discussed with attending. It[facility] 2023 7:28 AM --Subjective: No acute events overnight. Patient is feeling some pain from yesterdays procedure but tolerating well. Able to move around with no problems. Still needs to be set up for HD chair in [place], [place]. Objective: Vitals:04/07/24 0300 04/07/24 0400 04/07/24 0500 04/07/24 0600 BP: 90/63 99/52 98/59 117/68 Pulse: 76 76 75 75 Resp: 13 14 13 (!) 28 Temp: 36.9 ?C (98.5 ?F) SpO2: 98% 97% 97% 100% Intake/Output Summary (Last 24 hours) at 04/07/2024 0728Last data filed at 04/07/2024 0400 Gross per 24 hour Intake 390.39 ml Output 2200 ml Net -1809.61 ml Physical Exam:Constitutional: General: She is not in acute distress. Appearance: Normal appearance. She is not ill-appearing. HENT: Head: Normocephalic and atraumatic. Right Ear: External ear normal. Left Ear: External ear normal. Cardiovascular: Rate and Rhythm: Normal rate and regular rhythm. Pulses: Normal pulses. Heart sounds: Normal heart sounds. Pulmonary: Effort: Pulmonary effort is normal. No respiratory distress. Breath sounds: Normal breath sounds. Abdominal: General: There is no distension. Palpations: Abdomen is soft. Tenderness: There is no abdominal tenderness. Musculoskeletal: General: Normal range of motion. Right lower leg: Edema (2+ pitting edema bilaterally) present. Left lower leg: Edema (2+ pitting edema bilaterally) present. Skin: General: Skin is warm. Coloration: Skin is not jaundiced. Findings: No bruising. Neurological: General: No focal deficit present. Mental Status: She is alert and oriented to person, place, and time. Dialysis Access: Right IJ Medications:Scheduled: apixaban, 2.5 mg, Oral, q12h DIRK aspirin EC, 162 mg, Oral, q8h bisacodyl, 10 mg, Rectal, Daily calcium gluconate, 2 g, Intravenous, Once clopidogrel, 75 mg, Oral, Daily Ensure Enlive, 1 Container, Oral, BID gabapentin, 200 mg, Oral, BID [Held by provider] hydrALAZINE, 25 mg, Oral, q8h insulin glargine, 20 Units, Subcutaneous, Every evening lidocaine, 1 patch, Apply externally, Daily pantoprazole, 40 mg, Intravenous, q24h [facility] polyethylene glycol (PEG) 3350, 17 g, Oral, Daily sennosides, 2 tablet, Oral, Daily sodium chloride, 500 mL, Intravenous, Once Infusions: Data:Labs and imaging reviewed. Lab Results Component Value Date BUN 56 (H) 04/07/2024 Results from last 7 daysLab Units 04/07/24 0215 04/06/24 0147 04/05/24 0032 CREATININE mg/dL 5.57* 4.51* 3.34* Electrolytes:LYTES - Na/K/Cl/CO2: 128*/4.6*/98/22.0 (11/09 0215) Lab ResultsComponent Value Date Calcium Lvl 8.4 04/07/2024 Phosphorus Lvl 5.9 (H) 04/07/2024 Lab ResultsComponent Value Date Hgb 7.9 (L) 04/07/2024 Cosigned by Raleigh Bowman Jr., MD at 04/07/2024 3:47 PM WHEEL PRESSER L PRESSER L PRESSER L PRESSER Associated attestation - Raleigh Bowman Jr., MD - 04/07/2024 3:47 PM WHEEL PRESSER TEACHING ATTENDING ATTESTATION: I have seen this patient with the renal resident, Dr. Julio Paez and I have performed the history, ROS, and physical examination. I have discussed in detail with the resident. I have evaluated the laboratory findings and interval changes. I agree with the findings recorded in the note above by the ME-Nephrology, Renal fellow. Raleigh Bowman MDUT Nephrology Teaching Attending * Arturo Guillen MD - 04/07/2024 5:58 AM WHEEL PRESSER CCU Progress Note Admission Date: 03/27/2024 CCU Day: 11 Problem List Principal Problem: ST elevation myocardial infarction (STEMI) of inferior wall ([facility]) Active Problems: Heart block Hyperglycemia due to diabetes mellitus (CMS/HCC) (HCC) On mechanically assisted ventilation (CMS/HCC) (HCC) Fall GUILHERME (acute kidney injury) ([facility]) Acute respiratory alkalosis Anemia of chronic disease Toxic metabolic encephalopathy Acute hypoxemic respiratory failure (HCC) Atelectasis Cardiogenic shock (HCC) Severe sepsis (HCC) Shock liver Hyperkalemia Pleural effusion, bilateral Adrenal nodule (HCC) Pleuritic chest pain Shock (CMS/HCC) ([facility]) Assessment & Plan Ms. Freeman is a 63-year-old female presented by EMS after being found down and unresponsive by family and determined to be in complete heart block, now s/p placement of temporary pacer -- CHB/ECG changes concerning for STEMI - s/p Temp Pacer, LHC showed 100% RCA occlusion s/p PCI with HARI x1 to mid RCA (via R Fem access). Updates: 04/07 - Nephro - declared ESRD, IR - TDC placement occurred yesterday - 04/06 - PUF - 2.2 L removed yesterday - Outpatient HD chair - working on securing placement Cardiovascular: #STEMI s/p PCI with HARI to mid RCA (100% RCA occlusion) #CAD #Complete Heart Block - EP to evaluate for permanent pacemaker - EKG now paced - troponin initially 1846 > 2205 > 8000 -Patient s/p PCI with HARI, currently HDS and extubated 03/28, loaded with Brilinta/Aspirin during procedure - TTE (03/31): EF 60-65%, RV normal systolic fxn, LA mild dilation Plan - Continue ASA 81, started Plavix - Holding Statin for now given elevated LFT's, will resume when resolved - Hydral 25mg q8h - held for now given lower BP's on medication - Will transition Heparin to Eliquis today Neurology: - Pain control: Tylenol prn - Fall precautions - CT head negative Respiratory: Acute respiratory failure Pulmonary edema Dyspnea - Extubated 03/28 - CXR 04/01 with worsening diffuse opacities, CXR 04/05 with continued interstitial opacities - Will pull fluids with HD - Aspiration precautions - s/p PUF 04/06/24 with 2.2 L removed, s/p TDC placement with IR Plan: - Continue HD MWF planned per Nephro Gastroenterology: #Transaminitis, improving - Likely shock liver- finally down trending 04/01 - Nutrition, heart healthy diet - PUD ppx - BM Plan: -Trend LFT's Renal: #ESRD #GUILHERME on CKD - Cr 2.75, unknown baseline - monitor UOP - pt anuric -Cr uptrending, with urine output decreasing - Renal US Bilateral renal parenchymal disease. - nephrology consulted, initated CRRT 03/29 Plan: - Urine Lytes, Urine Protein/Creatinine - HD chair need outpatient, declared ESRD, working on outpatient HD chair - IR - TDC placement - 04/06 - monitor urine output - Will trial HD on TDC Infectious Disease: #Persistent Fever, concern for Sepsis #Leukocytosis, improving #Lactic acidosis, improved - Afebrile since 03/28 2000 - Lactic acid 5.32 -> 2.34 -> 1.33 - Continue vanc, kimberly - cultures negative to date but patient was taking abx days prior for dental abscess - CT maxillofacial: diffuse periodontal disease, some soft tissue swelling in L vestibular/buccal space but no abscess Hematology: #Anemia - family reports no hx - Hb 8.0 yesterday - Hb 7.1, after PCI - no signs of bleeding - Hb 03/29 6.8 > transfused 1 U pRBC, responded appropriately Plan - CTM - Follow-up Iron studies (send out lab 2-3 days) - Will transfuse to keep Hgb >7.0 Endocrinology: - on home insulin +/- metformin - Goal BS: 140-180 - glucose checks q4 - A1c 10.4 - TSH 0.914 Plan: -Glargine 5u daily -SSI -CTM DVT PPX: Heparin SubQ PUD PPX : Protonix Diet: Heart healthy PT/OT indicated: consulted Lines: Peripheral IV x 2, G tube, Guevara Catheter Guevara: day 1 Code status: FULL Dispo: pending clinical stablility Contact: see separate note for contact info Patient staffed with attending physician, Dr. Gayle. Arturo Guillen MD Internal Medicine | PGY-1 [facility] | [facility] [employer] Subjective Overnight, no events/concerns. This morning patient reports breathing better. Objective Vital Signs Current: Visit Vitals BP 117/68 Pulse 75 Temp 36.9 ?C (98.5 ?F) (Oral) Resp (!) 28 24 Hour: Vitals: 04/07/24 0300 04/07/24 0400 04/07/24 0500 04/07/24 0600 BP: 90/63 99/52 98/59 117/68 Pulse: 76 76 75 75 Resp: 13 14 13 (!) 28 Temp: 36.9 ?C (98.5 ?F) SpO2: 98% 97% 97% 100% Intake/Output: I/O last 3 completed shifts: In: 570.3 (6.7 mL/kg) [P.O.:300; I.V.:270.3 (3.2 mL/kg)] Out: 2200 (25.7 mL/kg) [Other:2200] Weight: 85.7 kg Intake/Output Summary (Last 24 hours) at 04/07/2024 0723Last data filed at 04/07/2024 0400 Gross per 24 hour Intake 390.39 ml Output 2200 ml Net -1809.61 ml Net intake/output since admission: Net IO Since Admission: -9,425.6 mL[04/07/24 0723] PHYSICAL EXAM General Appearance: no acute distress, no pallorHEENT: Extra ocular movements intact, no scleral icterus, mucous membrane moist, external ears normal Neck: Supple, FROM Lungs: respiratory effort normal, CTA bilaterally, no wheezes/rales/rhonchi Heart: Regular rate and regular rhythm, no murmur Abdomen: soft, non-tender, non-distended MSK/Extremities: pulses 2+. No obvious deformity. 2+ edema in BLE. Skin: No lesions, no rash. No jaundice. CRRT running at [facility] site Neurologic: AOx3, no focal deficits, speech clear Psych: Mood congruent affect, responds appropriately to questions. SCHEDULED HOSPITAL MEDICATIONSapixaban, 2.5 mg, Oral, q12h DIRK aspirin EC, 162 mg, Oral, q8h bisacodyl, 10 mg, Rectal, Daily calcium gluconate, 2 g, Intravenous, Once clopidogrel, 75 mg, Oral, Daily Ensure Enlive, 1 Container, Oral, BID gabapentin, 200 mg, Oral, BID [Held by provider] hydrALAZINE, 25 mg, Oral, q8h insulin glargine, 20 Units, Subcutaneous, Every evening lidocaine, 1 patch, Apply externally, Daily pantoprazole, 40 mg, Intravenous, q24h [facility] polyethylene glycol (PEG) 3350, 17 g, Oral, Daily sennosides, 2 tablet, Oral, Daily sodium chloride, 500 mL, Intravenous, Once PRN Medications:PRN medications: dextrose, dextrose, glucagon, heparin, insulin lispro, ipratropium-albuterol, melatonin, menthol-zinc oxide, oxyCODONE, [COMPLETED] Insert peripheral IV AND [COMPLETED] Saline lock IV AND sodium chloride, [COMPLETED] Insert peripheral IV AND [COMPLETED] Saline lock IV AND sodium chloride Drips: LABS Results from last 7 days Lab Units 04/07/2421404/06/247 04/05/24 0350 04/05/24 0032 WBC 10*3/uL 11.22* 11.98* -- 13.28* POC HEMOGLOBIN, VENOUS g/dL -- -- 8.7* -- HEMOGLOBIN g/dL 7.9* 8.6* -- 8.4* MCV fL 84.0 83.8 -- 86.7 Results from last 7 daysLab Units 04/07/2421404/06/247 04/05/24 0350 04/05/24 003 WBC 10*3/uL 11.22* 11.98* -- 13.28* POC HEMOGLOBIN, VENOUS g/dL -- -- 8.7* -- HEMOGLOBIN g/dL 7.9* 8.6* -- 8.4* MCV fL 84.0 83.8 -- 86.7 Results from last 7 daysLab Units 04/07/2421404/06/2414604/05/24 0516 04/05/24 0350 04/05/2431 POC SODIUM, VENOUS mEq/L -- -- -- 128* -- SODIUM mEq/L 128* 127* -- -- 134* POC POTASSIUM, VENOUS mEq/L -- -- -- 4.5 -- POTASSIUM mEq/L 4.6* 4.3 -- -- 4.3 POC CHLORIDE, VENOUS mEq/L -- -- -- 98 -- CHLORIDE mEq/L 98 99 -- -- 101 CO2 mEq/L 22.0 24.3 -- -- 25.5 BUN mg/dL 56* 41* -- -- 28* PHOSPHORUS mg/dL 5.9* 4.4 2.9 -- -- Results from last 7 daysLab Units 04/07/2421404/06/247 04/05/24 003 AST U/L 22 39 56* ALT U/L 291* 466* 563* Results from last daysLab Units 04/06/2414604/05/24 1726 04/05/24 1152 04/05/24 0516 INR -- 1.22* 1.20* 1.24* PROTIME Seconds -- 15.7* 15.5* 15.9* PTT Seconds 52.4* 60.7* 34.5 48.5* No lab exists for component: "APH", "APCO2", "APO2"No lab exists for component: "POCGLU" Microbiology:No results found for the last 90 days. OTHER DATA Radiology Review:IR CVC tunneled Result Date: 04/06/2024 PROCEDURE: IR Tunneled hemodialysis catheter placement PROCEDURE: Tunneled hemodialysis catheter insertion under fluoroscopic and ultrasound guidance PROCEDURE: Ultrasound of the [right] neck CLINICAL INDICATION: ESRD requiring long-term hemodialysis access Physician[s]: Chiquis Keys MD Procedure: The patient was advised of the benefits, risks, and alternatives of the procedure and informed consent was obtained. A time out was performed with verification of the patient's name, MRN, site of procedure, and type of procedure to be performed. The patient was positioned in the supine position on the angiographic table. The site was prepped and draped in the usual sterile fashion. Moderate sedation was performed by the physician including the presence of an independent trained observer that assisted in monitoring the patient's level of consciousness and physiological status. Following the administration of midazolam the physician spent 30 minutes of continuous [id number] time with the patient. Ultrasound of the neck reveals a patent and compressible right internal jugular vein. A superintendent radio communications radiograph reveals no relevant abnormality and a temporary hemodialysis cath in situ. The neck and anterior chest wall were anesthetized with lidocaine. The right internal jugular vein was accessed with ultrasound guidance using a microintroducer needle via a lateral approach. A 0.018 cope wire was advanced into the inferior vena cava. Incisions at the internal jugular access site and anterior chest wall were made using a scalpel. The needle was removed and a 6.5 Lithuanian peel-away sheath was advanced over the wire and into the superior vena cava. A 23 cm glidepath catheter was inserted through subcutaneous tissues of the chest wall with a tunneling device. The catheter was then measured and cut. The wire and insert were removed from the peel-away sheath. The catheter was passed into the internal jugular vein via the sheath. The peel-away sheath was then removed. The catheter tip was positioned in the upper right atrium. The puncture site was closed with Dermabond. The catheter was secured in place using a 2-0 Prolene. The catheter access site was cleansed and sterile dressings were applied. At the conclusion of the procedure, the ports of the catheter aspirated and flushed freely. The patient tolerated the procedure well and was returned to the PRU in stable condition. EBL: < 5 mL. Complications: None. Radiation dose: 4.35 mGy Fluoroscopy time: 0.3 min IMPRESSION: Successful placement of a Tunneled hemodialysis catheter tunneled Power Gudino catheter. The catheter is ready for immediate use. Attestation Attending: Chiquis Keys MD I attest that I was present for the entire procedure. Cosigned by Carla Gayle MD at 04/07/2024 8:20 AM WHEEL PRESSER L PRESSER L PRESSER L PRESSER Associated attestation - Carla Gayle MD - 04/07/2024 8:20 AM CST The patient was seen and examined with the resident. The relevant lab results, imaging and EKGs were personally reviewed, and the medications were reconciled. I agree with above mentioned assessment and plan. Total amount of critical care time spent throughout the day excluding procedural time was - 35 minutes. The patient remain critically ill, and requires ICU level of care. -- Pt with inf STEMI, now s/p RCA PCI, normal BiV function-- Septic shock - antibiotic course finished -- GUILHERME - on iHD now, tunnel catheter in -- Pericarditis - on high dose aspirin -- CHB - resolved - will be discharged home on Event monitor, EP consult -- She will be discharged home with home health and HD chair -- Continue GI and DVT prophylaxis per ICU protocol -- Appreciate PCCM input on non-cardiac critical issues Patient Active Problem ListDiagnosis Date Noted Pleuritic chest pain 04/05/2024 ST elevation myocardial infarction (STEMI) of inferior wall ([facility]) 03/28/2024 Heart block 03/27/2024 Hyperglycemia due to diabetes mellitus (CMS/HCC) ([facility]) 03/27/2024 On mechanically assisted ventilation (CMS/HCC) ([facility]) 03/27/2024 Fall 03/27/2024 GUILHERME (acute kidney injury) (HCC) 03/27/2024 Acute respiratory alkalosis 03/27/2024 Anemia of chronic disease 03/27/2024 Toxic metabolic encephalopathy 03/27/2024 Acute hypoxemic respiratory failure (HCC) 03/27/2024 Atelectasis 03/27/2024 Cardiogenic shock (HCC) 03/27/2024 Severe sepsis (HCC) 03/27/2024 Shock liver 03/27/2024 Hyperkalemia 03/27/2024 Pleural effusion, bilateral 03/27/2024 Adrenal nodule (HCC) 03/27/2024 Shock (CMS/HCC) (HCC) 03/27/2024 * Liberty Christianson LMSW - 04/06/2024 2:58 PM WHEEL PRESSER SW received message from [employer] stating : "We have been informed by our insurance team that due to pt. only working 7 years this pt. does not qualify for Medicare also pt. does not qualify for Medicaid. " Pt was declined for chair. SW followed up with [facility] who states referral is pending financial clearance. L PRESSER * Alyson Gary PT - 04/06/2024 1:56 PM WHEEL PRESSER Encounter Note Patient Name: Elvis Freeman Today's Date: 04/06/2024 Missed Treatment Time and Reason Others Present: Son present PT arrived for session. Pt currently on HD and is pending TDC placement afterward. PT will follow up at next opportunity. Alyson Gary PT L PRESSER * Jacky Echevarria-Tayo Shay MD - 04/06/2024 11:21 AM WHEEL PRESSER [facility] ICU Note This patient was seen with Dr. Verdugo and bedside RN as part of a multidisciplinary team. Briefly this is a 63 y/o female who presented after a fall due to CHB related to inferior STEMI. Interval Events: -no acute events; sodium level dropped -some hyperglycemia noted -increased work of breathing and some hypoxia; required volume removal with HD today and BiPaP Problem List -inferior STEMI s/p PCI to RCA on 03/27/24 -complete heart block - suspected to be ischemic which is now resolved with intermittent episodes of bradycardia and prolonged TN interval -acute hypoxic respiratory failure - likely due to pulmonary edema -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 -HFmrEF - LVEF 60-65% with preserved RV function; significant MAC with mild MS -elevated liver enzymes - suspect related to low flow state and hypotension - improving -paroxysmal atrial fibrillation (CHADSVASc 4) -possible post DE pericarditis -type 2 DM with hyperglycemia (A1c of ~10) -anemia - likely nutritional and chronic disease with some component of blood loss acutely -restless leg syndrome -history of fall -history of cholecystectomy -history of adrenal nodule -possible sepsis - resolved -delirium - resolved Daily Plan -currently on DAPT; statin on hold (due to liver injury) - high dose ASA for pericarditis -continue to monitor for bradyarrythmias; plan for event monitor at discharge due to 1st degree AVB -continue to monitor respiratory status -continue to monitor LFTs which are improving -escalate bowel regimen -continued on PUTTYING AND CALKING SUPERVISOR; currently on iHD -escalate basal insulin to 20 units and continue SSI -completed 7 days of empiric BSAB (vancomycin/meropenem). Continue to monitor clinically and WBC/fever curve off antibiotics -currently on heparin drip for atrial fibrillation ICU Quality Review -ICU day: 10 days -mechanically ventilated: no -restraints indicated: no -PT/OT: ordered -DVT prophylaxis: systemic anticoagulation -GI prophylaxis: yes -central Lines: RIJ dialysis line (pending TDC) -arterial Lines: none -devices: PUTTYING AND CALKING SUPERVISOR (iHD) -guevara: no -tubes/drains: none -pressure injury: none I spent a total of 35 minutes caring for this patient including reviewing the patients chart, obtaining relevant history from the patient, performing a physical examination, interpreting date and coordinating care with consultants. This is exclusive to any procedures or teaching. Vitals: Visit Vitals BP 151/76 Pulse 83 Temp 36.7 ?C (98.1 ?F) (Axillary) Resp 15 Ht 1.651 m (5' 5") Wt 85.7 kg (188 lb 15 oz) SpO2 99% BMI 31.44 kg/m? Smoking Status Unknown BSA 1.98 m? Tube/Drain Output: Output by Drain (mL) 04/04/24 0700 - 04/04/24 1859 04/04/24 1900 - 04/05/24 0659 04/05/24 0700 - 04/05/24 1859 04/05/24 1900 - 04/06/24 0659 04/06/24 0700 - 04/06/24 1121 Patient has no LDAs of requested type attached. Labs: Last ABG Results from last 7 days Lab Units 04/02/24 1125 04/02/24 0323 04/01/24 1941 POC PH, ARTERIAL 7.42 7.42 7.43 POC PCO2, ARTERIAL mmHg 34* 34* 31* POC PO2, ARTERIAL mmHg 113 91 137 POC HCO3, ARTERIAL mMol/L 22 22 21* POC SO2, ARTERIAL (CALC) % 98.5 97.2 99.2 POC SO2, ARTERIAL % 99.0 98.0 98.8 POC BASE EXCESS, ARTERIAL mMol/L -2 -2 -3* Last CBC ResultLast Lab Result Automated Differential Collection Time: 04/06/24 1:47 AM Result Value Ref Range Segs % 62.4 40.9 - 70.4 % Lymphs % 17.4 15.3 - 46.4 % Monos % 10.9 3.9 - 10.9 % Eos % 5.0 (H) 0.3 - 4.1 % Basos % 0.5 0.2 - 1.3 % Immature Grans % 3.8 (H) 0.1 - 1 % Segs # 7.48 (H) 2.03 - 7.09 10*3/uL Lymphs # 2.09 1.09 - 3.65 10*3/uL Monos # 1.30 (H) 0.27 - 0.78 10*3/uL Eos # 0.60 (H) 0.02 - 0.33 10*3/uL Basos # 0.06 0.01 - 0.09 10*3/uL Imm Grans # 0.45 (H) 0.01 - 0.07 10*3/uL Complete Blood Count Collection Time: 04/06/24 1:47 AM Result Value Ref Range WBC 11.98 (H) 4.15 - 10.55 10*3/uL RBC 3.28 (L) 3.74 - 5.22 10*6/uL NRBC % 1.1 (H) 0 /100 WBC Hgb 8.6 (L) 10.8 - 14.8 g/dL Hct 27.5 (L) 33.9 - 45.4 % MCV 83.8 77.8 - 97.5 fL MCH 26.2 24.9 - 32.6 pg MCHC 31.3 30.1 - 35.0 g/dL RDW - SD 47.8 37.6 - 49.1 fL Plt Count 218 191 - 422 10*3/uL MPV 13.3 (H) 9.0 - 12.6 fL Last BMP or CMP ResultLast Lab Result Basic Metabolic Panel Collection Time: 04/02/24 11:14 AM Result Value Ref Range Glucose Lvl 174 (H) 70 - 99 mg/dL BUN 17 9 - 23 mg/dL Creatinine Lvl 1.67 (H) 0.55 - 1.02 mg/dL Sodium Lvl 134 (L) 136 - 145 mEq/L Potassium Lvl 3.6 3.4 - 4.5 mEq/L Chloride Lvl 102 98 - 107 mEq/L CO2 Lvl 22.7 20.0 - 31.0 mEq/L Anion Gap 12.9 10.0 - 20.0 mEq/L Calcium Lvl 8.1 (L) 8.3 - 10.6 mg/dL eGFR 34 (L) >60 mL/min/1.73m2 Culture ResultsNo results found for the last 90 days. Bowel Movements:No data recorded Ventilator SettingsPIP: [17 cm H2O] 17 cm H2O Active Medications[Held by provider] heparin, 0.1-40 Units/kg/hr, Last Rate: Stopped (04/06/24 3681) aspirin EC, 162 mg, Oral, [id number], 10 mg, Rectal, Daily calcium gluconate, 2 g, Intravenous, Once clopidogrel, 75 mg, Oral, Daily Ensure Enlive, 1 Container, Oral, BID gabapentin, 200 mg, Oral, BID [Held by provider] hydrALAZINE, 25 mg, Oral, q8h lidocaine, 1 patch, Apply externally, Daily pantoprazole, 40 mg, Intravenous, q24h DIRK polyethylene glycol (PEG) 3350, 17 g, Oral, Daily sennosides, 2 tablet, Oral, Daily sodium chloride, 500 mL, Intravenous, Once L PRESSER * Vijay Kurtz RN - 04/06/2024 11:16 AM WHEEL PRESSER CASE MANAGEMENT ROUTINE DISCHARGE PLAN NOTE LOS: 10 Barriers to Discharge: Requiring continuous bipap. TDC pending DISCHARGE PLAN A: Home with OPHD (working referral) TISH: 3-5 days L PRESSER * Shakira Hayes OT - 04/06/2024 11:10 AM WHEEL PRESSER OT Encounter Note Patient Name: Elvis Freeman Today's Date: 04/06/2024 Missed Treatment Time and Reason Amount of Missed Time (min): 0 Minutes Pt with HD at bedside and pending TDC placement afterward; OT will follow up. Shakira Hayes OT L PRESSER * Reza Perkins MD - 04/06/2024 8:59 AM WHEEL PRESSER ME Nephrology Progress Note Chief Complaint: had concerns including Fall. Nephrology following for: Acute Kidney Injury Assessment & Plan: Elvis Freeman is a 63 y/o F with PMH of DM who presented via EMS after being found unresponsive by family. She was noted to have complete heart block with inferior STEMI now s/p placement of temporary pacer and LHC w/ stent x 1 on 03/27. Nephrology is following for acute renal failure requiring CRRT. Off CRRT, now transitioning to HD. Initially GUILHERME requiring dialysis, however has now progressed to ESRD. Recommendations: - Continue strict I/Os - Infectious work-up and management per CCU and PCCM - f/u iron studies - Please place TDC when able - SW/CM consult to assist with arranging HD on discharge - f/u hepatitis B surface Ag, surface antibody, and total core antibody - Will plan for PUF today, goal 3L over 2 hours ESRD GUILHERME requiring dialysis, non-recovered - Likely ischemic ATN in setting of hemodynamic instability, sepsis, and possible underlying chronic kidney disease - Unknown Cr baseline - Cr 2.77 on admission, peaked at 5.88 on 03/29 - Renal U/S showed bilateral parenchymal disease - Guevara in place, patient remains anuric - On CRRT as of 03/29, aiming for net even initially - CRRT stopped in evening 04/02 - Cr 1.67 -> 2.20 after stopping CRRT, electrolytes stable - Cr 4.51 as of 04/05 - Patient will need HD chair set up outpatient - s/p PUF 04/03, HD 04/04 and 04/05 Volume status:- Some slight signs of volume overload with congestive hepatopathy, pleural effusions - Received PUF 04/03, removing 3L - 3.5L removed with HD 04/05 - I/O: net -2.5L on 04/05 - Will manage with HD Electrolytes:- Stable and appropriate - Optimize with PUTTYING AND CALKING SUPERVISOR Acid-Base:- Bicarb 24.3 Normocytic anemia:- Hgb 6.8 -> 8.9 post-transfusion 03/28 - Hgb now stable at 8.6 - Anemia workup pending - Ferritin 663 Case discussed with attending. [facility] [place] [facility] 8:59 AM --Subjective: No acute events overnight. Patient is on BiPAP currently due to SOB overnight. Objective: Vitals:04/06/24 0500 04/06/24 0600 04/06/24 0700 04/06/24 0800 BP: 133/67 149/74 135/79 157/76 Pulse: 82 79 82 76 Resp: 13 11 Temp: SpO2: 97% 100% 99% 100% Intake/Output Summary (Last 24 hours) at 04/06/2024 0859Last data filed at 04/06/2024 0735 Gross per 24 hour Intake 962.59 ml Output 3500 ml Net -2537.41 ml Physical Exam:Constitutional: Appearance: She is ill-appearing. HENT: Head: Normocephalic and atraumatic. Right Ear: External ear normal. Left Ear: External ear normal. Cardiovascular: Rate and Rhythm: Normal rate and regular rhythm. Pulses: Normal pulses. Heart sounds: Normal heart sounds. Pulmonary: Effort: Pulmonary effort is normal. No respiratory distress. Breath sounds: Normal breath sounds. Abdominal: General: There is no distension. Palpations: Abdomen is soft. Tenderness: There is no abdominal tenderness. Musculoskeletal: General: Normal range of motion. Right lower leg: Edema (2+ pitting edema bilaterally) present. Left lower leg: Edema (2+ pitting edema bilaterally) present. Skin: General: Skin is warm. Coloration: Skin is not jaundiced. Findings: No bruising. Neurological: General: No focal deficit present. Mental Status: She is oriented to person, place, and time. Dialysis Access: Right IJ Medications:Scheduled: aspirin EC, 162 mg, Oral, q8h bisacodyl, 10 mg, Rectal, Daily calcium gluconate, 2 g, Intravenous, Once clopidogrel, 75 mg, Oral, Daily Ensure Enlive, 1 Container, Oral, BID gabapentin, 200 mg, Oral, BID [Held by provider] hydrALAZINE, 25 mg, Oral, q8h insulin glargine, 17 Units, Subcutaneous, q24h lidocaine, 1 patch, Apply externally, Daily pantoprazole, 40 mg, Intravenous, q24h DIRK polyethylene glycol (PEG) 3350, 17 g, Oral, Daily sennosides, 2 tablet, Oral, Daily sodium chloride, 500 mL, Intravenous, Once Infusions:[Held by provider] heparin, 0.1-40 Units/kg/hr, Last Rate: Stopped (04/06/24416) Data: Labs and imaging reviewed. Lab Results Component Value Date BUN 41 (H) 04/06/2024 Results from last 7 daysLab Units 04/06/24 0147 04/05/24 0032 04/04/24 0011 CREATININE mg/dL 4.51* 3.34* 3.78* Electrolytes:LYTES - Na/K/Cl/CO2: 127*/4.3/99/24.3 (04/06 014) Lab ResultsComponent Value Date Calcium Lvl 8.2 (L) 04/06/2024 Phosphorus Lvl 4.4 04/06/2024 Lab ResultsComponent Value Date Hgb 8.6 (L) 04/06/2024 Cosigned by Shashank Pizano MD at 04/06/2024 7:25 PM WHEEL PRESSER L PRESSER L PRESSER Associated attestation - Shashank Pizano MD - 04/06/2024 7:25 PM CST The patient is critically ill with dialysis-dependent ATN , now ESRD in the setting of cardiogenic shock, acute hypoxic respiratory failure and acute metabolic encephalopathy. Now on intermittent dialysis for metabolic clearance and volume management. I have reviewed the laboratory and radiographic data, discussed the patientwith the Fellow, and agree with the exam, assessment and plan as documented. Total CCT: > 35 minutes, including assessment of serial labs, review of vitals and I/O, review of meds, monitoring/adjusting PUTTYING AND CALKING SUPERVISOR prescription, evaluation of the patient, and discussing/coordinating care with the primary team and nurse. Patient is now ESRD and is dialysis dependent for volume management andmetabolic clearance. Had another session of PUF today to help with volume management prior to TDC placement Merrill Hatfield Professor Division of Renal Diseases and Hypertension [facility] | [facility] [employer] Contact: [employer] secure chat | [phone] * Arturo Guillen MD - 04/06/2024 6:58 AM WHEEL PRESSER CCU Progress Note Admission Date: 03/27/2024 CCU Day: 10 Problem List Principal Problem: ST elevation myocardial infarction (STEMI) of inferior wall (HCC) Active Problems: Heart block Hyperglycemia due to diabetes mellitus (CMS/HCC) (HCC) On mechanically assisted ventilation (CMS/HCC) (HCC) Fall GUILHERME (acute kidney injury) (HCC) Acute respiratory alkalosis Anemia of chronic disease Toxic metabolic encephalopathy Acute hypoxemic respiratory failure (HCC) Atelectasis Cardiogenic shock (HCC) Severe sepsis (HCC) Shock liver Hyperkalemia Pleural effusion, bilateral Adrenal nodule (HCC) Pleuritic chest pain Shock (CMS/HCC) (HCC) Assessment & Plan Ms. Freeman is a 63-year-old female presented by EMS after being found down and unresponsive by family and determined to be in complete heart block, now s/p placement of temporary pacer -- CHB/ECG changes concerning for STEMI - s/p Temp Pacer, LHC showed 100% RCA occlusion s/p PCI with HARI x1 to mid RCA (via R Fem access). Updates: 04/06 - Nephro - declared ESRD, IR - TDC placement today - Treating for Pericarditis - Aspirin 162mg q8h started overnight Cardiovascular: #STEMI s/p PCI with HARI to mid RCA (100% RCA occlusion) #CAD #Complete Heart Block - EP to evaluate for permanent pacemaker - EKG now paced - troponin initially 1846 > 2205 > 8000 -Patient s/p PCI with HARI, currently HDS and extubated 03/28, loaded with Brilinta/Aspirin during procedure - TTE (03/31): EF 60-65%, RV normal systolic fxn, LA mild dilation Plan - Continue ASA 81, started Plavix - Holding Statin for now given elevated LFT's, will resume when resolved - Hydral 25mg q8h Neurology: - Pain control: Tylenol prn - Fall precautions - CT head negative Respiratory: Acute respiratory failure Pulmonary edema Dyspnea - Extubated 03/28 - On 3L NC this morning - CXR 04/01 with worsening diffuse opacities, CXR 04/05 with continued interstitial opacities - Will pull fluids with HD - Aspiration precautions Gastroenterology: #Transaminitis, improving - Likely shock liver- finally down trending 04/01 - Nutrition, heart healthy diet - PUD ppx - BM Plan: -Trend LFT's Renal: #ESRD #GUILHERME on CKD - Cr 2.75, unknown baseline - monitor UOP - pt anuric -Cr uptrending, with urine output decreasing - Renal US Bilateral renal parenchymal disease. - nephrology consulted, initated CRRT 03/29 Plan: - Urine Lytes, Urine Protein/Creatinine - HD chair need outpatient, declared ESRD - Consult IR - TDC placement - monitor urine output Infectious Disease: #Persistent Fever, concern for Sepsis #Leukocytosis, improving #Lactic acidosis, improved - Afebrile since 03/28 2000 - Lactic acid 5.32 -> 2.34 -> 1.33 - Continue vanc, kimberly - cultures negative to date but patient was taking abx days prior for dental abscess - CT maxillofacial: diffuse periodontal disease, some soft tissue swelling in L vestibular/buccal space but no abscess Hematology: #Anemia - family reports no hx - Hb 8.0 yesterday - Hb 7.1, after PCI - no signs of bleeding - Hb 03/29 6.8 > transfused 1 U pRBC, responded appropriately Plan - CTM - Follow-up Iron studies (send out lab 2-3 days) - Will transfuse to keep Hgb >7.0 Endocrinology: - on home insulin +/- metformin - Goal BS: 140-180 - glucose checks q4 - A1c 10.4 - TSH 0.914 Plan: -Glargine 5u daily -SSI -CTM DVT PPX: Heparin SubQ PUD PPX : Protonix Diet: Heart healthy PT/OT indicated: consulted Lines: Peripheral IV x 2, G tube, Guevara Catheter Guevara: day 1 Code status: FULL Dispo: pending clinical stablility Contact: see separate note for contact info Patient staffed with attending physician, Dr. Gayle. Arturo Guillen MD Internal Medicine | PGY-1 [facility] | [facility] Subjective Overnight, no events/concerns. This morning patient reports breathing better. Objective Vital Signs Current: Visit Vitals BP 149/74 Pulse 79 Temp 36.7 ?C (98.1 ?F) Resp 24 Hour: Vitals: 04/06/24 0300 04/06/24 0400 04/06/24 0500 04/06/24 0600 BP: 92/57 94/54 133/67 149/74 Pulse: 77 82 82 79 Resp: Temp: 36.7 ?C (98.1 ?F) SpO2: 97% 94% 97% 100% Intake/Output: I/O last 3 completed shifts: In: 1306.3 (15.2 mL/kg) [P.O.:461; I.V.:845.3 (9.9 mL/kg)] Out: 5800 (67.7 mL/kg) [Other:5800] Weight: 85.7 kg Intake/Output Summary (Last 24 hours) at 04/06/2024 0659Last data filed at 04/06/2024 0100 Gross per 24 hour Intake 922.64 ml Output 3500 ml Net -2577.36 ml Net intake/output since admission: Net IO Since Admission: -7,615.99 mL[04/06/24 0659] PHYSICAL EXAM General Appearance: no acute distress, no pallorHEENT: Extra ocular movements intact, no scleral icterus, mucous membrane moist, external ears normal Neck: Supple, FROM Lungs: respiratory effort normal, CTA bilaterally, no wheezes/rales/rhonchi Heart: Regular rate and regular rhythm, no murmur Abdomen: soft, non-tender, non-distended MSK/Extremities: pulses 2+. No obvious deformity. Skin: No lesions, no rash. No jaundice. CRRT running at [facility] site Neurologic: AOx3, no focal deficits, speech clear Psych: Mood congruent affect, responds appropriately to questions. SCHEDULED HOSPITAL MEDICATIONSaspirin EC, 162 mg, Oral, q8h bisacodyl, 10 mg, Rectal, Daily calcium gluconate, 2 g, Intravenous, Once clopidogrel, 75 mg, Oral, Daily Ensure Enlive, 1 Container, Oral, BID gabapentin, 200 mg, Oral, BID [Held by provider] hydrALAZINE, 25 mg, Oral, q8h insulin glargine, 17 Units, Subcutaneous, q24h lidocaine, 1 patch, Apply externally, Daily pantoprazole, 40 mg, Intravenous, q24h DIRK polyethylene glycol (PEG) 3350, 17 g, Oral, Daily sennosides, 2 tablet, Oral, Daily sodium chloride, 500 mL, Intravenous, Once PRN Medications:PRN medications: dextrose, dextrose, glucagon, heparin, insulin lispro, ipratropium-albuterol, melatonin, menthol-zinc oxide, oxyCODONE, [COMPLETED] Insert peripheral IV AND [COMPLETED] Saline lock IV AND sodium chloride, [COMPLETED] Insert peripheral IV AND [COMPLETED] Saline lock IV AND sodium chloride Drips: [Held by provider] heparin, 0.1-40 Units/kg/hr, Last Rate: Stopped (11/01/20 417) LABSResults from last 7 days Lab Units 04/06/2414604/05/2434904/05/243104/04/24203904/04/24541 WBC 10*3/uL 11.98* -- 13.28* -- 13.06* POC HEMOGLOBIN, VENOUS g/dL -- 8.7* -- < > -- HEMOGLOBIN g/dL 8.6* -- 8.4* -- 8.4* MCV fL 83.8 -- 86.7 -- 85.5 < > = values in this interval not displayed. Results from last 7 daysLab Units 04/06/2414604/05/2434904/05/243104/04/24203904/04/2442 WBC 10*3/uL 11.98* -- 13.28* -- 13.06* POC HEMOGLOBIN, VENOUS g/dL -- 8.7* -- < > -- HEMOGLOBIN g/dL 8.6* -- 8.4* -- 8.4* MCV fL 83.8 -- 86.7 -- 85.5 < > = values in this interval not displayed. Results from last 7 daysLab Units 04/06/2414604/05/2451504/05/2434904/05/243104/04/24203904/04/2410 POC SODIUM, VENOUS mEq/L -- -- 128* -- < > -- SODIUM mEq/L 127* -- -- 134* -- 132* POC POTASSIUM, VENOUS mEq/L -- -- 4.5 -- < > -- POTASSIUM mEq/L 4.3 -- -- 4.3 -- 4.5 POC CHLORIDE, VENOUS mEq/L -- -- 98 -- < > -- CHLORIDE mEq/L 99 -- -- 101 -- 103 CO2 mEq/L 24.3 -- -- 25.5 -- 24.4 BUN mg/dL 41* -- -- 28* -- 37* PHOSPHORUS mg/dL 4.4 2.9 -- -- -- 2.7 < > = values in this interval not displayed. Results from last 7 daysLab Units 11/08/24 0147 11/07/24 0032 11/06/24 0011 AST U/L 39 56* 119* ALT U/L 466* 563* 818* Results from last 7 daysLab Units 04/06/24 0147 04/05/24 1726 04/05/24 1152 04/05/24 0516 INR -- 1.22* 1.20* 1.24* PROTIME Seconds -- 15.7* 15.5* 15.9* PTT Seconds 52.4* 60.7* 34.5 48.5* No lab exists for component: "APH", "APCO2", "APO2"No lab exists for component: "POCGLU" Microbiology:No results found for the last 90 days. OTHER DATA Radiology Review:No results found. Cosigned by Carla Gayle MD at 04/06/2024 8:50 AM CST L PRESSER L PRESSER Associated attestation - Carla Gayle MD - 04/06/2024 8:50 AM CST The patient was seen and examined with the resident. The relevant lab results, imaging and EKGs were personally reviewed, and the medications were reconciled. I agree with above mentioned assessment and plan. Total amount of critical care time spent throughout the day excluding procedural time was - 35 minutes. The patient remain critically ill, and requires ICU level of care. -- Pt with inf STEMI, now s/p RCA PCI, normal BiV function-- Septic shock - ? Dental abscess, antibiotic course finished -- GUILHERME - on CRRT, nephrology on board, on iHD/CRRT -- Pericarditis - on high dose aspirin -- CHB - resolved - will be discharged home on Event monitor, EP consult -- She will be discharged home with home health and HD chair -- Continue GI and DVT prophylaxis per ICU protocol -- Appreciate PCCM input on non-cardiac critical issues Patient Active Problem ListDiagnosis Date Noted Pleuritic chest pain 04/05/2024 ST elevation myocardial infarction (STEMI) of inferior wall (HCC) 03/28/2024 Heart block 03/27/2024 Hyperglycemia due to diabetes mellitus (CMS/HCC) (HCC) 03/27/2024 On mechanically assisted ventilation (CMS/HCC) (HCC) 03/27/2024 Fall 03/27/2024 GUILHERME (acute kidney injury) (HCC) 03/27/2024 Acute respiratory alkalosis 03/27/2024 Anemia of chronic disease 03/27/2024 Toxic metabolic encephalopathy 03/27/2024 Acute hypoxemic respiratory failure (HCC) 03/27/2024 Atelectasis 03/27/2024 Cardiogenic shock (HCC) 03/27/2024 Severe sepsis (HCC) 03/27/2024 Shock liver 03/27/2024 Hyperkalemia 03/27/2024 Pleural effusion, bilateral 03/27/2024 Adrenal nodule (HCC) 03/27/2024 Shock (CMS/HCC) (HCC) 03/27/2024 * Jacky Echevarria-Tayo Shay MD - 04/05/2024 2:53 PM WHEEL PRESSER [facility] ICU Note This patient was seen with FISH PROCESSING SUPERVISOR Brent and Dr. Verdugo and bedside RN as part of a multidisciplinary team. Briefly this is a 63 y/o female who presented after a fall due to CHB related to inferior STEMI. Interval Events: -chest pain overnight; clinical concern for pericarditis Problem List -inferior STEMI s/p PCI to RCA on 03/27/24 -complete heart block - suspected to be ischemic which is now resolved with intermittent episodes of bradycardia and prolonged TN interval -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 -HFmrEF - LVEF 60-65% with preserved RV function; significant MAC with mild MS -elevated liver enzymes - suspect related to low flow state and hypotension - improving -paroxysmal atrial fibrillation (CHADSVASc 4) -possible post DE pericarditis -type 2 DM with hyperglycemia (A1c of ~10) -anemia - likely nutritional and chronic disease with some component of blood loss acutely -restless leg syndrome -history of fall -history of cholecystectomy -history of adrenal nodule -possible sepsis - resolved -delirium - resolved Daily Plan -currently on DAPT; statin on hold (due to liver injury) - high dose ASA for pericarditis -continue to monitor for bradyarrythmias; plan for event monitor at discharge due to 1st degree AVB -continue to monitor respiratory status -continue to monitor LFTs which are improving -escalate bowel regimen -continued on PUTTYING AND CALKING SUPERVISOR; currently on iHD -continue basal insulin (15 units) and continue SSI -completed 7 days of empiric BSAB (vancomycin/meropenem). Continue to monitor clinically and WBC/fever curve off antibiotics -currently on heparin drip for atrial fibrillation ICU Quality Review -ICU day: 9 days -mechanically ventilated: no -restraints indicated: no -PT/OT: ordered -DVT prophylaxis: systemic anticoagulation -GI prophylaxis: yes -central Lines: RIJ dialysis line (pending TDC) -arterial Lines: none -devices: PUTTYING AND CALKING SUPERVISOR (iHD) -guevara: no -tubes/drains: none -pressure injury: none I spent a total of 35 minutes caring for this patient including reviewing the patients chart, obtaining relevant history from the patient, performing a physical examination, interpreting date and coordinating care with consultants. This is exclusive to any procedures or teaching. Vitals: Visit Vitals BP 134/76 (BP Location: Left leg, Patient Position: Lying) Pulse 82 Temp 36.6 ?C (97.9 ?F) Resp (!) 39 Ht 1.651 m (5' 5") Wt 85.7 kg (188 lb 15 oz) SpO2 98% BMI 31.44 kg/m? Smoking Status Unknown BSA 1.98 m? Tube/Drain Output: Output by Drain (mL) 04/03/24 07 - 04/03/24 1859 04/03/24 1900 - 04/04/24 0659 04/04/24 0700 - 04/04/24 1859 04/04/24 1900 - 04/05/24 0659 04/05/24 0700 - 04/05/24 1453 Patient has no LDAs of requested type attached. Labs: Last ABG Results from last 7 days Lab Units 04/02/24 1125 04/02/24 0323 04/01/24 1941 POC PH, ARTERIAL 7.42 7.42 7.43 POC PCO2, ARTERIAL mmHg 34* 34* 31* POC PO2, ARTERIAL mmHg 113 91 137 POC HCO3, ARTERIAL mMol/L 22 22 21* POC SO2, ARTERIAL (CALC) % 98.5 97.2 99.2 POC SO2, ARTERIAL % 99.0 98.0 98.8 POC BASE EXCESS, ARTERIAL mMol/L -2 -2 -3* Last CBC ResultLast Lab Result Automated Differential Collection Time: 04/05/24 12:32 AM Result Value Ref Range Segs % 66.2 40.9 - 70.4 % Lymphs % 13.8 (L) 15.3 - 46.4 % Monos % 12.0 (H) 3.9 - 10.9 % Eos % 3.4 0.3 - 4.1 % Basos % 0.2 0.2 - 1.3 % Immature Grans % 4.4 (H) 0.1 - 1 % Segs # 8.79 (H) 2.03 - 7.09 10*3/uL Lymphs # 1.83 1.09 - 3.65 10*3/uL Monos # 1.60 (H) 0.27 - 0.78 10*3/uL Eos # 0.45 (H) 0.02 - 0.33 10*3/uL Basos # 0.03 0.01 - 0.09 10*3/uL Imm Grans # 0.58 (H) 0.01 - 0.07 10*3/uL Complete Blood Count Collection Time: 04/05/24 12:32 AM Result Value Ref Range WBC 13.28 (H) 4.15 - 10.55 10*3/uL RBC 3.15 (L) 3.74 - 5.22 10*6/uL NRBC % 1.7 (H) 0 /100 WBC Hgb 8.4 (L) 10.8 - 14.8 g/dL Hct 27.3 (L) 33.9 - 45.4 % MCV 86.7 77.8 - 97.5 fL MCH 26.7 24.9 - 32.6 pg MCHC 30.8 30.1 - 35.0 g/dL RDW - SD 49.8 (H) 37.6 - 49.1 fL Plt Count 184 (L) 191 - 422 10*3/uL MPV 13.6 (H) 9.0 - 12.6 fL Last BMP or CMP ResultLast Lab Result Basic Metabolic Panel Collection Time: 04/02/24 11:14 AM Result Value Ref Range Glucose Lvl 174 (H) 70 - 99 mg/dL BUN 17 9 - 23 mg/dL Creatinine Lvl 1.67 (H) 0.55 - 1.02 mg/dL Sodium Lvl 134 (L) 136 - 145 mEq/L Potassium Lvl 3.6 3.4 - 4.5 mEq/L Chloride Lvl 102 98 - 107 mEq/L CO2 Lvl 22.7 20.0 - 31.0 mEq/L Anion Gap 12.9 10.0 - 20.0 mEq/L Calcium Lvl 8.1 (L) 8.3 - 10.6 mg/dL eGFR 34 (L) >60 mL/min/1.73m2 Culture ResultsNo results found for the last 90 days. Bowel Movements:No data recorded Ventilator SettingsPIP: [11 cm H2O] 11 cm H2O Active Medicationsheparin, 0.1-40 Units/kg/hr, Last Rate: 15 Units/kg/hr (04/05/24 06) aspirin, 162 mg, Oral, q8hOr aspirin, 300 mg, Rectal, q8h bisacodyl, 10 mg, Rectal, Daily calcium gluconate, 2 g, Intravenous, Once [START ON 04/06/2024] clopidogrel, 75 mg, Oral, Daily Ensure Enlive, 1 Container, Oral, BID gabapentin, 200 mg, Oral, BID [Held by provider] hydrALAZINE, 25 mg, Oral, q8h insulin glargine, 15 Units, Subcutaneous, q PM lidocaine, 1 patch, Apply externally, Daily pantoprazole, 40 mg, Intravenous, q24h DIRK polyethylene glycol (PEG) 3350, 17 g, Oral, Daily sennosides, 2 tablet, Oral, Daily sodium chloride, 500 mL, Intravenous, Once L PRESSER * Liberty Christianson LMSW - 04/05/2024 1:49 PM WHEEL PRESSER ALEX faxed completed Insurability Form to Tamiko L PRESSER * Alyson Gary, PT - 04/05/2024 1:43 PM WHEEL PRESSER Encounter Note Patient Name: Elvis Freeman Today's Date: 04/05/2024 Missed Treatment Time and Reason PT arrived for session, pt. Currently on HD. We will follow up as she is available. Alyson Gary, PT L PRESSER * Shakira Hayse, OT - 04/05/2024 8:59 AM WHEEL PRESSER OT Encounter Note Patient Name: Elvis Freeman Today's Date: 04/05/2024 Missed Treatment Time and Reason Amount of Missed Time (min): 0 Minutes Pt on HD at this time; OT will follow up. Shakira Hayse OT L PRESSER * Liberty Christianson LMSW - 04/05/2024 8:49 AM WHEEL PRESSER Referral sent to [facility] .Pending total core antibody and surface antibody labs. L PRESSER L PRESSER * Liberty Christianson LMSW - 04/05/2024 8:42 AM WHEEL PRESSER ALEX spoke to pt's son who was at bedside with the pt to discuss OP HD chair. Family request referral be sent to [facility] dialysis. ALEX verified home address. ALEX request primary team complete Hep B panels: Hep B surface antigen, Surface antibody, Total core antibody and chest Xray for TB. L PRESSER * Reza Perkins MD - 04/05/2024 8:10 AM WHEEL PRESSER ME Nephrology Progress Note Chief Complaint: had concerns including Fall. Nephrology following for: Acute Kidney Injury Assessment & Plan: Elvis Freeman is a 63 y/o F with PMH of DM who presented via EMS after being found unresponsive by family. She was noted to have complete heart block with inferior STEMI now s/p placement of temporary pacer and LHC w/ stent x 1 on 03/27. Nephrology is following for acute renal failure requiring CRRT. Off CRRT, now transitioning to HD. Initially GUILHERME requiring dialysis, however has now progressed to ESRD. Recommendations: - Continue strict I/Os - Infectious work-up and management per CCU and PCCM - Send iron studies - Please place TDC when able - SW/CM consult to assist with arranging HD on discharge - Please order hepatitis B surface Ag, surface antibody, and total core antibody - Will plan for HD today for volume removal. ESRD GUILHERME requiring dialysis, non-recovered - Likely ischemic ATN in setting of hemodynamic instability, sepsis, and possible underlying chronic kidney disease - Unknown Cr baseline - Cr 2.77 on admission, peaked at 5.88 on 03/29 - Renal U/S showed bilateral parenchymal disease - Guevara in place, patient remains anuric - On CRRT as of 03/29, aiming for net even initially - CRRT stopped in evening 04/02 - Cr 1.67 -> 2.20 after stopping CRRT, electrolytes stable - Cr 3.76 as of 04/04 - Patient will need HD chair set up outpatient - s/p PUF 04/03, HD 04/04 Volume status:- Some slight signs of volume overload with congestive hepatopathy, pleural effusions - Received PUF 04/03, removing 3L - I/O: net -2.3L on 04/04 - Will manage with HD on MWF schedule Electrolytes:- Stable and appropriate - Optimize with PUTTYING AND CALKING SUPERVISOR Acid-Base:- Bicarb 25.5 Normocytic anemia:- Hgb 6.8 -> 8.9 post-transfusion 03/28 - Hgb now stable at 9.0 - Anemia workup pending - Ferritin 663 Case discussed with attending. Reza Perkins [facility] 20[facility] 8:10 AM --Subjective: Patient had worsening respiratory distress and chest pain overnight. CXR showed pleural effusions and pulmonary vascular congestion. EKG showed ST-segment elevations in inferior leads c/w prior EKG post-cath, patient in Afib. Patient states she is feeling better this morning. She has had increased leg swelling and restlessness. She states she was able to produce urine overnight. Objective: Vitals:04/04/24 1845 04/04/24 2000 04/04/24 2140 04/05/24 0347 BP: 117/61 Pulse: 81 86 79 Resp: 20 23 Temp: 36 ?C (96.8 ?F) 36.6 ?C (97.9 ?F) SpO2: 97% 100% Intake/Output Summary (Last 24 hours) at 04/05/2024 0810Last data filed at 04/05/2024 0600 Gross per 24 hour Intake 563.56 ml Output 2300 ml Net -1736.44 ml Physical Exam:Constitutional: Appearance: She is ill-appearing. HENT: Head: Normocephalic and atraumatic. Right Ear: External ear normal. Left Ear: External ear normal. Cardiovascular: Rate and Rhythm: Normal rate and regular rhythm. Pulses: Normal pulses. Heart sounds: Normal heart sounds. Pulmonary: Effort: Pulmonary effort is normal. No respiratory distress. Breath sounds: Normal breath sounds. Abdominal: General: There is no distension. Palpations: Abdomen is soft. Tenderness: There is no abdominal tenderness. Musculoskeletal: General: Normal range of motion. Right lower leg: Edema (2+ pitting edema bilaterally) present. Left lower leg: Edema (2+ pitting edema bilaterally) present. Skin: General: Skin is warm. Coloration: Skin is not jaundiced. Findings: No bruising. Neurological: General: No focal deficit present. Mental Status: She is oriented to person, place, and time. Dialysis Access: Right IJ Medications:Scheduled: aspirin, 162 mg, Oral, q8h Or aspirin, 300 mg, Rectal, q8h bisacodyl, 10 mg, Rectal, Daily calcium gluconate, 2 g, Intravenous, Once clopidogrel, 600 mg, Oral, Once [START ON 04/06/2024] clopidogrel, 75 mg, Oral, Daily Ensure Enlive, 1 Container, Oral, BID gabapentin, 100 mg, Oral, q8h hydrALAZINE, 25 mg, Oral, q8h insulin glargine, 15 Units, Subcutaneous, q PM lidocaine, 1 patch, Apply externally, Daily pantoprazole, 40 mg, Intravenous, q24h DIRK polyethylene glycol (PEG) 3350, 17 g, Oral, Daily sennosides, 2 tablet, Oral, Daily sodium chloride, 500 mL, Intravenous, Once Infusions:heparin, 0.1-40 Units/kg/hr, Last Rate: 15 Units/kg/hr (04/05/24 0617) Data: Labs and imaging reviewed. Lab Results Component Value Date BUN 28 (H) 04/05/2024 Results from last 7 daysLab Units 04/05/24 0032 04/04/24 0011 04/03/24 0015 CREATININE mg/dL 3.34* 3.78* 2.20* Electrolytes:LYTES - Na/K/Cl/CO2: 134*/4.3/101/25.5 (04/05 003) Lab ResultsComponent Value Date Calcium Lvl 8.2 (L) 04/05/2024 Phosphorus Lvl 2.9 04/05/2024 Lab ResultsComponent Value Date POC V Hgb Tot 8.7 (L) 04/05/2024 Cosigned by Shashank Pizano MD at 04/05/2024 7:52 PM WHEEL PRESSER L PRESSER L PRESSER Associated attestation - Shashank Pizano MD - 04/05/2024 7:52 PM CST The patient is critically ill with dialysis-dependent ATN in the setting of cardiogenic shock, acute hypoxic respiratory failure and acute metabolic encephalopathy. Now on intermittent dialysis for metabolic clearance and volume management. I have reviewed the laboratory and radiographic data, discussed the patientwith the Fellow, and agree with the exam, assessment and plan as documented. Total CCT: > 35 minutes, including assessment of serial labs, review of vitals and I/O, review of meds, monitoring/adjusting PUTTYING AND CALKING SUPERVISOR prescription, evaluation of the patient, and discussing/coordinating care with the primary team and nurse. Patient is now ESRD and is dialysis dependent for volume management andmetabolic clearance. Was able to get ~3L fluid removal. Merrill Hatfield Professor Division of Renal Diseases and Hypertension [facility] | [facility] Contact: Epic secure chat | [phone] * Ирина Kennedy, FISH PROCESSING SUPERVISOR - 04/05/2024 8:06 AM WHEEL PRESSER Hospital Course: Elvis Freeman ( 1960) is a 64 year old female who was brought in by EMS after being found down and unresponsive by family and determined to be in complete heart block with Inferior STEMI, now s/p placement of temporary pacer and intubated for airway protection. LHC revealed 100% occlusion of mid RCA, s/p stent x 1 on 03/27 Interval events: SOB overnight with complaints of chest pain. EKG and troponins not suggestive of ACS. Thought to be pleuritic pain. Unable to do colchicine or prednisone given renal failure and recent DE. Started on Aspirin 162mg q8h CXR showing volume overload with bilateral pleural effusions. Pending HD today Review of Systems All other systems reviewed and are negative. Physical Exam: Constitutional: General: She is not in acute distress. Appearance: Normal appearance. Cardiovascular: Rate and Rhythm: Normal rate. Rhythm irregular. Pulses: Normal pulses. Pulmonary: Effort: Pulmonary effort is normal. No respiratory distress. Breath sounds: Normal breath sounds. Abdominal: General: Bowel sounds are normal. There is no distension. Palpations: Abdomen is soft. Tenderness: There is no abdominal tenderness. Musculoskeletal: Right lower leg: Edema present. Left lower leg: Edema present. Skin: General: Skin is warm and dry. Capillary Refill: Capillary refill takes less than 2 seconds. Neurological: General: No focal deficit present. Mental Status: She is alert and oriented to person, place, and time. Mental status is at baseline. BP 117/61 | Pulse 79 | Temp 36.6 ?C (97.9 ?F) | Resp 23 | Ht 1.651 m (5' 5") |Wt 85.7 kg (188 lb 15 oz) | SpO2 100% | BMI 31.44 kg/m? aspirin, 162 mg, Oral, q8hOr aspirin, 300 mg, Rectal, q8h bisacodyl, 10 mg, Rectal, Daily calcium gluconate, 2 g, Intravenous, Once clopidogrel, 600 mg, Oral, Once [START ON 04/06/2024] clopidogrel, 75 mg, Oral, Daily Ensure Enlive, 1 Container, Oral, BID gabapentin, 100 mg, Oral, q8h hydrALAZINE, 25 mg, Oral, q8h insulin glargine, 15 Units, Subcutaneous, q PM lidocaine, 1 patch, Apply externally, Daily pantoprazole, 40 mg, Intravenous, q24h DIRK polyethylene glycol (PEG) 3350, 17 g, Oral, Daily sennosides, 2 tablet, Oral, Daily sodium chloride, 500 mL, Intravenous, Once heparin, 0.1-40 Units/kg/hr, Last Rate: 15 Units/kg/hr (04/05/24 0617) Encounter Date: 03/27/24XR chest 1 view Narrative EXAM: XR CHEST 1 VIEW DATE: 04/04/2024 INDICATION: abnormal breath sounds COMPARISON: 04/01/2024 TECHNIQUE: AP chest ImpressionStable right hemodialysis catheter. Stable enlarged cardiomediastinal silhouette. Aortic arch calcifications. Improvement in lung aeration with decreased atelectatic changes and hazy opacities compared to most recent radiograph. No definite pleural effusion. No pneumothorax in this portable radiograph. Regional skeleton is unchanged. Transthoracic echo (TTE) completeResult Date: 03/31/2024 Left Ventricle: Left ventricle is smaller than normal. Normal wall thickness in the left ventricle. Left ventricular mass is normal. Normal systolic function with an estimated EF of 60 - 65%. Global longitudinal strain is normal. LV GLS is -18.3%. Unable to assess diastolic function in the left ventricle due to mitral annular calcification. Right Ventricle: Right ventricle size is normal. Normal systolic function in the right ventricle. Left Atrium: Left atrium is mildly dilated. Aortic Valve: Aortic valve is trileaflet. Mildly thickened leaflets in the aortic valve. Mildly calcified leaflets in the aortic valve. Mitral Valve: No leaflet thickening in the mitral valve. No leaflet calcification in the mitral valve. Severe posterior mitral annular calcification. Mild mitral regurgitation present. Mild mitral stenosis present. Mean transmitral gradient 7 mmHg at HR 85 bpm Tricuspid Valve: Mild tricuspid regurgitation present. RVSP is 41.00 mmHg. Mild pulmonary hypertension present. RVSP is 41.00 mmHg. Aorta: Normal sized sinus of Valsalva present. Pericardium: No pericardial effusion present. Transthoracic echo (TTE) limitedResult Date: 03/31/2024 Left Ventricle: Left ventricle size is normal. Septal thickening in the left ventricle. Left ventricular regional wall motion abnormalities present. See diagram for wall motion findings. Normal systolic function with an estimated EF of 55 - 60%. Right Ventricle: Right ventricle size is normal. Mildly reduced systolic function in the right ventricle. Aortic Valve: Trileaflet aortic valve sclerosis is present. Mildly thickened leaflets in the aortic valve. Mitral Valve: Moderate posterior mitral annular calcification. Tricuspid Valve: Mild tricuspid regurgitation present. Pulmonary hypertension is not present. Pericardium: No pericardial effusion present. Overall normal LV function, though with inferior/posterior and inferoseptal WMA as noted above; remaining rai appear hyperdynamic. Mildly reduced RV function. Transthoracic echo (TTE) completeResult Date: 03/28/2024 Left ventricle is normal in size with mildly reduced global systolic function and an estimated ejection fraction of 45-50%, by the method of discs. Diastolic function is indeterminate. Right ventricle is normal in size and systolic function. Left atrium appears normal in size. Right atrium is normal in size Aortic valve is trileaflet and sclerotic with normal function. There is mild mitral valve stenosis and a heavily calcified annulus. The transvalvular mean gradient is 4 mmHg, at a HR of 90 bpm. and the MV area by continuity eq is 1.5 cm2.No significant mitral valve regurgitation is observed. Tricuspid valve leaflets are normal. There is trace tricuspid regurgitation. Unable to estimate right ventricular systolic pressure due to an insufficient TR jet. Pulmonic valve appears normal in structure with trace regurgitation. Aortic root is normal in diameter. Inferior vena cava is normal in diameter with >50% respiratory variation in size. No pericardial effusion is seen. No prior study is currently available for comparison. Principal Problem: ST elevation myocardial infarction (STEMI) of inferior wall (HCC) Active Problems: Heart block Hyperglycemia due to diabetes mellitus (CMS/HCC) (HCC) On mechanically assisted ventilation (CMS/HCC) (HCC) Fall GUILHERME (acute kidney injury) (HCC) Acute respiratory alkalosis Anemia of chronic disease Toxic metabolic encephalopathy Acute hypoxemic respiratory failure (HCC) Atelectasis Cardiogenic shock (HCC) Severe sepsis (HCC) Shock liver Hyperkalemia Pleural effusion, bilateral Adrenal nodule (HCC) Shock (CMS/HCC) (HCC) Plan: Neuro/Psych:-Mentation intact -Continue gabapentin (renally dosed) for neuropathy -CT brain showing no acute abnormality. CT cervical spine also showing no fracture or traumatic malalignment -Pain control with Tylenol PRN and daily lidocaine patch -Continue delirium precautions and adherence to sleep-wake cycle. CV:-Chest pain overnight. EKG and troponins not suggestive of ACS. Thought to be pleuritic pain. Unable to do colchicine or prednisone given renal failure and recent DE. Started on Aspirin 162mg q8h -Repeat ECHO completed. Pending read -Continue aspirin and Plavix. Statin held owing to elevated LFTs -s/p temp pacer 03/[address] [facility] with PCI x 1 to RCA on 03/27. Subsequent removal of temp pacer and patient redeveloped 2nd and 3rd degree heart block. -EP following. Plan for outpatient follow up -Hydralazine started for elevated blood pressure -A-fib, continue heparin drip -ECHO showing EF 45%, normal RV size and systolic function -RUE US negative for DVT Resp:-Supplemental O2 via nasal cannula. -CT chest showing no acute abnormalities with trace pleural effusions, atelectasis -Duonebs prn -Continue volume expansion protocol and incentive spirometry GI/Nutrition: -Heart diet with Ensure supplementation -Protonix ppx -Continue bowel regimen and titrate for 1-2 BMs daily -CT abdomen and pelvis showing no acute traumatic abnormalities and heterogeneous left adrenal nodule measuring 3.2 cm -Elevated LFTs likely 2/2 ischemia from CHB or ischemia. Trend Renal/Electrolytes:-GUILHERME could be 2/2 ischemia in the setting of CHB. Renal US shows chronic parenchymal disease. Nephrology following -CRRT stopped 04/03. Now on HD -Monitor UOP with strict I's/O's -Trend BUN/Cr -Avoid nephrotoxic agents -Replace electrolytes as needed Endo: -Hgb A1c 10.4 -Continue Glargine 15 units daily with medium dose SSI. Goal blood glucose 100-180 Heme/Onc: -Monitor for bleeding and coagulopathies -Maintain Hgb > 7 and Platelets > 10k ID: -Received 7 days of empiric Merrem -Cultures negative to date -MRSA nares, strep pna, and legionella all negative -Respiratory culture negative to date -CT maxillofacial shows diffuse peridental disease but no abscess, follow-up outpatient per dentistry Musculoskeletal/Skin: -Continue wound care and sacral decubitus prevention -PT/OT and out of be to chair daily Prophylaxis:-DVT ppx: Heparin -PUD ppx: Protonix Vascular/ access:Peripheral IV 03/31/24 Anterior;Left Forearm (Active) Peripheral IV 03/31/24 Anterior;Left;Upper Arm (Active) Hemodialysis Cath Triple Lumen 03/29/24 Right Non-tunneled catheter Internal jugular vein (Active) Compliance:Restraints: None Indwelling Guevara Catheter: None Central Venous Access: Needed for HD Arterial Access: None Code Status: Full Disposition: CCU I spent a total of 25 minutes of critical care time with this patient independently, not including procedure time, then plan was discussed with [facility] Attending Dr. Jaspal Kennedy, MSN, [facility] #[id number] Division of Pulmonary Critical Care MedicineSouth [facility] / [facility] [email or web address] Cosigned by Jacky Shay MD at 04/06/2024 4:27 PM WHEEL PRESSER L PRESSER L PRESSER * Arturo Guillen MD - 04/05/2024 6:46 AM WHEEL PRESSER CCU Progress Note Admission Date: 03/27/2024 CCU Day: 9 Problem List Principal Problem: ST elevation myocardial infarction (STEMI) of inferior wall (HCC) Active Problems: Heart block Hyperglycemia due to diabetes mellitus (CMS/HCC) (HCC) On mechanically assisted ventilation (CMS/HCC) (HCC) Fall GUILHERME (acute kidney injury) (HCC) Acute respiratory alkalosis Anemia of chronic disease Toxic metabolic encephalopathy Acute hypoxemic respiratory failure (HCC) Atelectasis Cardiogenic shock (HCC) Severe sepsis (HCC) Shock liver Hyperkalemia Pleural effusion, bilateral Adrenal nodule (HCC) Shock (CMS/HCC) (HCC) Assessment & Plan Ms. Freeman is a 63-year-old female presented by EMS after being found down and unresponsive by family and determined to be in complete heart block, now s/p placement of temporary pacer -- CHB/ECG changes concerning for STEMI - s/p Temp Pacer, LHC showed 100% RCA occlusion s/p PCI with HARI x1 to mid RCA (via R Fem access). Updates: 04/05 - HD yesterday, 2.3 L removed - Nephro - declared ESRD yesterday - Nephro consulted - will plan for PUF today - Treating for Pericarditis - Aspirin 162mg q8h started overnight - TTE pending Cardiovascular: #STEMI s/p PCI with HARI to mid RCA (100% RCA occlusion) #CAD #Complete Heart Block - EP to evaluate for permanent pacemaker - EKG now paced - troponin initially 1846 > 2205 > 8000 -Patient s/p PCI with HARI, currently HDS and extubated 03/28, loaded with Brilinta/Aspirin during procedure - TTE (03/31): EF 60-65%, RV normal systolic fxn, LA mild dilation Plan - Continue ASA 81, started Plavix - Holding Statin for now given elevated LFT's, will resume when resolved - Hydral 25mg q8h Neurology: - Pain control: Tylenol prn - Fall precautions - CT head negative Respiratory: Acute respiratory failure Pulmonary edema Dyspnea - Extubated 03/28 - On 3L NC this morning - CXR 04/01 with worsening diffuse opacities, CXR 04/05 with continued interstitial opacities - Will pull fluids with HD - Aspiration precautions Gastroenterology: #Transaminitis, improving - Likely shock liver- finally down trending 04/01 - Nutrition, heart healthy diet - PUD ppx - BM Plan: -Trend LFT's Renal: #ESRD #GUILHERME on CKD - Cr 2.75, unknown baseline - monitor UOP - pt anuric -Cr uptrending, with urine output decreasing - Renal US Bilateral renal parenchymal disease. - nephrology consulted, initated CRRT 03/29 Plan: - Urine Lytes, Urine Protein/Creatinine - HD chair need outpatient, declared ESRD - Consult IR - TDC placement - monitor urine output Infectious Disease: #Persistent Fever, concern for Sepsis #Leukocytosis, improving #Lactic acidosis, improved - Afebrile since 03/28 2000 - Lactic acid 5.32 -> 2.34 -> 1.33 - Continue vanc, kimberly - cultures negative to date but patient was taking abx days prior for dental abscess - CT maxillofacial: diffuse periodontal disease, some soft tissue swelling in L vestibular/buccal space but no abscess Hematology: #Anemia - family reports no hx - Hb 8.0 yesterday - Hb 7.1, after PCI - no signs of bleeding - Hb 03/29 6.8 > transfused 1 U pRBC, responded appropriately Plan - CTM - Follow-up Iron studies (send out lab 2-3 days) - Will transfuse to keep Hgb >7.0 Endocrinology: - on home insulin +/- metformin - Goal BS: 140-180 - glucose checks q4 - A1c 10.4 - TSH 0.914 Plan: -Glargine 5u daily -SSI -CTM DVT PPX: Heparin SubQ PUD PPX : Protonix Diet: Heart healthy PT/OT indicated: consulted Lines: Peripheral IV x 2, G tube, Guevara Catheter Guevara: day 1 Code status: FULL Dispo: pending clinical stablility Contact: see separate note for contact info Patient staffed with attending physician, Dr. Gayle. Arturo Guillen MD Internal Medicine | PGY-1 [facility] | [facility] Subjective Overnight, no events/concerns. This morning patient reports breathing better. Objective Vital Signs Current: Visit Vitals BP 117/61 Pulse 79 Temp 36.6 ?C (97.9 ?F) Resp 23 24 Hour: Vitals: 04/04/24 1845 04/04/24199904/04/24 2140 04/05/24 0347 BP: 117/61 Pulse: 81 86 79 Resp: 20 23 Temp: 36 ?C (96.8 ?F) 36.6 ?C (97.9 ?F) SpO2: 97% 100% Intake/Output: I/O last 3 completed shifts: In: 986.8 (11.5 mL/kg) [I.V.:986.8 (11.5 mL/kg)] Out: 5300 (61.8 mL/kg) [Other:5300] Weight: 85.7 kg Intake/Output Summary (Last 24 hours) at 04/05/2024 0646Last data filed at 04/05/2024 0600 Gross per 24 hour Intake 563.56 ml Output 2300 ml Net -1736.44 ml Net intake/output since admission: Net IO Since Admission: -5,038.63 mL[04/05/24 0646] PHYSICAL EXAM General Appearance: no acute distress, no pallorHEENT: Extra ocular movements intact, no scleral icterus, mucous membrane moist, external ears normal Neck: Supple, FROM Lungs: respiratory effort normal, CTA bilaterally, no wheezes/rales/rhonchi Heart: Regular rate and regular rhythm, no murmur Abdomen: soft, non-tender, non-distended MSK/Extremities: pulses 2+. No obvious deformity. Skin: No lesions, no rash. No jaundice. CRRT running at [facility] site Neurologic: AOx3, no focal deficits, speech clear Psych: Mood congruent affect, responds appropriately to questions. SCHEDULED HOSPITAL MEDICATIONSaspirin, 162 mg, Oral, q8h Or aspirin, 300 mg, Rectal, q8h bisacodyl, 10 mg, Rectal, Daily calcium gluconate, 2 g, Intravenous, Once clopidogrel, 600 mg, Oral, Once [START ON 04/06/2024] clopidogrel, 75 mg, Oral, Daily Ensure Enlive, 1 Container, Oral, BID gabapentin, 100 mg, Oral, q8h hydrALAZINE, 25 mg, Oral, q8h insulin glargine, 15 Units, Subcutaneous, q PM lidocaine, 1 patch, Apply externally, Daily pantoprazole, 40 mg, Intravenous, q24h DIRK polyethylene glycol (PEG) 3350, 17 g, Oral, Daily sennosides, 2 tablet, Oral, Daily sodium chloride, 500 mL, Intravenous, Once PRN Medications:PRN medications: dextrose, dextrose, glucagon, heparin, insulin lispro, ipratropium-albuterol, melatonin, menthol-zinc oxide, oxyCODONE, [COMPLETED] Insert peripheral IV AND [COMPLETED] Saline lock IV AND sodium chloride, [COMPLETED] Insert peripheral IV AND [COMPLETED] Saline lock IV AND sodium chloride Drips: heparin, 0.1-40 Units/kg/hr, Last Rate: 15 Units/kg/hr (04/05/24 0617) LABSResults from last 7 days Lab Units 04/05/24 0350 04/05/24 0032 04/04/24 2040 04/04/24 0542 04/04/24 0011 WBC 10*3/uL -- 13.28* -- 13.06* 13.83* POC HEMOGLOBIN, VENOUS g/dL 8.7* -- 9.1* -- -- HEMOGLOBIN g/dL -- 8.4* -- 8.4* 9.0* MCV fL -- 86.7 -- 85.5 85.9 Results from last 7 daysLab Units 04/05/240 04/05/243104/04/24203904/04/2454104/04/24 001 WBC 10*3/uL -- 13.28* -- 13.06* 13.83* POC HEMOGLOBIN, VENOUS g/dL 8.7* -- 9.1* -- -- HEMOGLOBIN g/dL -- 8.4* -- 8.4* 9.0* MCV fL -- 86.7 -- 85.5 85.9 Results from last 7 daysLab Units 04/05/2451504/05/2434904/05/243104/04/24203904/04/241004/03/24 0015 POC SODIUM, VENOUS mEq/L -- 128* -- 129* -- -- SODIUM mEq/L -- -- 134* -- 132* 132* POC POTASSIUM, VENOUS mEq/L -- 4.5 -- 4.1 -- -- POTASSIUM mEq/L -- -- 4.3 -- 4.5 4.4 POC CHLORIDE, VENOUS mEq/L -- 98 -- 99 -- -- CHLORIDE mEq/L -- -- 101 -- 103 102 CO2 mEq/L -- -- 25.5 -- 24.4 20.9 BUN mg/dL -- -- 28* -- 37* 18 PHOSPHORUS mg/dL 2.9 -- -- -- 2.7 2.3* Results from last 7 daysLab Units 04/05/243104/04/241004/03/24 0015 AST U/L 56* 119* 200* ALT U/L 563* 818* 1,078* Results from last 7 daysLab Units 04/05/2451504/04/24201604/04/24903 INR 1.24* 1.19* 1.26* PROTIME Seconds 15.9* 15.4* 16.1* PTT Seconds 48.5* 81.2* 51.7* No lab exists for component: "APH", "APCO2", "APO2"No lab exists for component: "POCGLU" Microbiology:No results found for the last 90 days. OTHER DATA Radiology Review:XR chest 1 view Result Date: 04/04/2024 EXAM: XR CHEST 1 VIEW DATE: 04/04/2024 INDICATION: abnormal breath sounds COMPARISON: 04/01/2024 TECHNIQUE: AP chest Stable right hemodialysis catheter. Stable enlarged cardiomediastinalsilhouette. Aortic arch calcifications. Improvement in lung aeration with decreased atelectatic changes and hazy opacities compared to most recent radiograph. No definite pleural effusion. No pneumothorax in this portable radiograph. Regional skeleton is unchanged. ECG 12 leadResult Date: 04/04/[address] ABNORMALITY, POSSIBLE LATERAL SUBENDOCARDIAL INJURY ABNORMAL ECG NO PREVIOUS ECGS AVAILABLE Cosigned by Carla Gayle MD at 04/05/2024 8:59 AM CST L PRESSER L PRESSER L PRESSER L PRESSER L PRESSER Associated attestation - Carla Gayle MD - 04/05/2024 8:59 AM CST The patient was seen and examined with the resident. The relevant lab results, imaging and EKGs were personally reviewed, and the medications were reconciled. I agree with above mentioned assessment and plan. Total amount of critical care time spent throughout the day excluding procedural time was - 35 minutes. The patient remain critically ill, and requires ICU level of care. -- Pt with inf STEMI, now s/p RCA PCI, normal BiV function-- Septic shock - ? Dental abscess, on antibiotics, OMFS on board - Antibiotic duration? -- GUILHERME - on CRRT, nephrology on board, on iHD/CRRT -- Pericarditis - on high dose aspirin, echo pending -- CHB - resolved - will be discharged home on Event monitor, EP consult -- She will be discharged home with home health and HD chair -- Continue GI and DVT prophylaxis per ICU protocol -- Appreciate PCCM input on non-cardiac critical issues Patient Active Problem ListDiagnosis Date Noted Pleuritic chest pain 04/05/2024 ST elevation myocardial infarction (STEMI) of inferior wall ([facility]) 03/28/2024 Heart block 03/27/2024 Hyperglycemia due to diabetes mellitus (CMS/HCC) ([facility]) 03/27/2024 On mechanically assisted ventilation ([facility]) ([facility]) 03/27/2024 Fall 03/27/2024 GUILHERME (acute kidney injury) ([facility]) 03/27/2024 Acute respiratory alkalosis 03/27/2024 Anemia of chronic disease 03/27/2024 Toxic metabolic encephalopathy 03/27/2024 Acute hypoxemic respiratory failure ([facility]) 03/27/2024 Atelectasis 03/27/2024 Cardiogenic shock ([facility]) 03/27/2024 Severe sepsis ([facility]) 03/27/2024 Shock liver 03/27/2024 Hyperkalemia 03/27/2024 Pleural effusion, bilateral 03/27/2024 Adrenal nodule ([facility]) 03/27/2024 Shock ([facility]) ([facility]) 03/27/2024 * Alyson Gary, PT - 04/04/2024 11:56 AM WHEEL PRESSER Treatment Session Note Patient Name: Elvis Freeman Today's Date: 04/04/2024 Preferred Language: [place] Assessment & Plan Assessment: Pt cont to make progress and was able to increase amb distance in hallway. She fatigues quickly and required several seated rest breaks. PT will cont to work with pt to maximize her independence and safety with mobility. Plan: PT Plan: Skilled PT PT Frequency: 4-5 times per week until discharge PT Discharge Recommendations: Home health PT Therapy discharge recommendations are made by determining the patient's prior level of function, assessing current function level and establishing rehab potential. The overall discharge plan may be affected by input from Physicians, Care Coordination, medical condition/status, family support and insurance benefits. Subjective "Am I going to use a scooter?" Pt at times is confused to situation and needs redirection. Precautions: Medical Precautions: standard ObjectiveGeneral Visit Information: PT Last Visit PT Received On: 04/04/24 GeneralOthers Present: Son present Pt found supine in bed. Performed BLE warm-up therex. She was placed onportable O2 at 2L and tram monitor. She stood to RW, needing cues for hand placement. Pt amb into hallway, recliner followed for safety. She took 2 seated rest breaks and was wheeled back to room. She was left with VSS, son present, nsg aware of pt's status. Activity Tolerance:Endurance: Tolerates less than 10 min exercise, no significant change in vital signs CognitionOverall Cognitive Status: Impaired Behavior/Cognition: Distractible, Cooperative Attention: Attends with redirection Memory: Decreased short term memory TreatmentBed Mobility 1: Level of Assistance 1: Supervision/touching assistance Bed Mobility Comments 1: cued to use bedrail to assist Bed Mobility To/From: Supine to sit on EOB Transfers 1: Level of Assistance 1: Partial/Mod assistance (Min A) Transfer To/From: [id number] Gait training: Gait Training Time Entry: 24 Gait Training Activity 1:Distance (enter in feet): 10', 15', 20' Assistive Devices And Adaptive Equipments: Walker, front-wheeled Level of Assistance 1: Partial/Mod assistance Gait Training Activity 1 Comment: Pt amb with slower pace, decreased B step length, head down, becomes unsteady when fatigued AM-PAC Basic Mobility:AM-PAC Basic Mobility Inpatient Turning in bed without bedrails: None Lying on back to sitting on edge of flat bed: A Little Bed to chair: A Little Standing up from chair: A Little Walk in room: A Lot Climbing 3-5 stairs: A Lot Mobility Inpatient Raw Score: 17 JH-HLM Goal: 5 Mobility: Highest Level of Mobility Performed (JH-HLM)JH-HLM Goal: 5 Highest Level of Mobility Performed (JH-HLM): Walked 25 feet or more (i.e. walked outside of room) Modified [place] Patient Education: Education Documentation No documentation found. Education Comments No comments found. Goals:Encounter Goals Encounter Goals (Active) Patient will perform grooming with mod I standing at sink. Start: 04/02/24 Expected End: 05/02/24 Pt will perform >8 min of OOB ADL routine with no rest breaks to improve overall activity tolerance. Start: 04/02/24 Expected End: 05/02/24 Pt will be mod I with bed mobility Start: 04/02/24 Expected End: 04/26/24 Pt will amb 400' mod I Start: 04/02/24 Expected End: 04/26/24 Within 2 weeks of starting therapy, the patient and/or family/caregiver will demonstrate independence and be compliant in a written HEP in order to maximize gains made during therapy. Start: 04/02/24 Expected End: 05/02/24 Pt will be mod I with all transfers Start: 04/02/24 Expected End: 04/26/24 Treatment Note: If this is the last documented treatment, then it will signify discharge from acute care prior to discharge from the therapy service and will serve as the discharge summary. Alyson Gary PT L PRESSER * Jacky Echevarria-Tayo Shay MD - 04/04/2024 11:30 AM WHEEL PRESSER [facility] ICU Note This patient was seen with FISH PROCESSING SUPERVISOR Brent and Dr. Verdugo and bedside RN as part of a multidisciplinary team. Briefly this is a 63 y/o female who presented after a fall due to CHB related to inferior STEMI. Interval Events: -no acute events Problem List -inferior STEMI s/p PCI to RCA on 03/27/24 -complete heart block - suspected to be ischemic which is now resolved with intermittent episodes of bradycardia and prolonged TN interval -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 -HFmrEF - LVEF 60-65% with preserved RV function; significant MAC with mild MS -elevated liver enzymes - suspect related to low flow state and hypotension - improving -paroxysmal atrial fibrillation (CHADSVASc 4) -type 2 DM with hyperglycemia (A1c of ~10) -anemia - likely nutritional and chronic disease with some component of blood loss acutely -restless leg syndrome -history of fall -history of cholecystectomy -history of adrenal nodule -possible sepsis - resolved -delirium - resolved Daily Plan -currently on DAPT; statin on hold (due to liver injury) -continue to monitor for bradyarrythmias; plan for event monitor at discharge due to 1st degree AVB -continue to monitor respiratory status -continue to monitor LFTs which are improving -escalate bowel regimen -continued on PUTTYING AND CALKING SUPERVISOR; currently on iHD -continue basal insulin (15 units) and continue SSI -recommend stopping Vancomycin (completed 7 days); to complete 7 days of meropenem today. Continue to monitor clinically and WBC/fever curve off antibiotics -repeat CXR today -currently on heparin drip for atrial fibrillation ICU Quality Review -ICU day: 8 days -mechanically ventilated: no -restraints indicated: no -PT/OT: ordered -DVT prophylaxis: systemic anticoagulation -GI prophylaxis: yes -central Lines: RIJ dialysis line -arterial Lines: none -devices: PUTTYING AND CALKING SUPERVISOR (iHD) -guevara: no -tubes/drains: none -pressure injury: none I spent a total of 35 minutes caring for this patient including reviewing the patients chart, obtaining relevant history from the patient, performing a physical examination, interpreting date and coordinating care with consultants. This is exclusive to any procedures or teaching. Vitals: Visit Vitals BP 138/76 Pulse 79 Temp 37.3 ?C (99.1 ?F) Resp 24 Ht 1.651 m (5' 5") Wt 85.7 kg (188 lb 15 oz) SpO2 98% BMI 31.44 kg/m? Smoking Status Unknown BSA 1.98 m? Tube/Drain Output: Output by Drain (mL) 04/02/24 07 - 04/02/24 1859 04/02/24 1900 - 04/03/24 0659 04/03/24 07 - 04/03/24 1859 04/03/24 1900 - 04/04/24 0659 04/04/24 0700 - 04/04/24 1130 Patient has no LDAs of requested type attached. Labs: Last ABG Results from last 7 days Lab Units 04/02/24 1125 04/02/24 0323 04/01/24 1941 POC PH, ARTERIAL 7.42 7.42 7.43 POC PCO2, ARTERIAL mmHg 34* 34* 31* POC PO2, ARTERIAL mmHg 113 91 137 POC HCO3, ARTERIAL mMol/L 22 22 21* POC SO2, ARTERIAL (CALC) % 98.5 97.2 99.2 POC SO2, ARTERIAL % 99.0 98.0 98.8 POC BASE EXCESS, ARTERIAL mMol/L -2 -2 -3* Last CBC ResultLast Lab Result Complete Blood Count Collection Time: 04/04/24 5:42 AM Result Value Ref Range WBC 13.06 (H) 4.15 - 10.55 10*3/uL RBC 3.38 (L) 3.74 - 5.22 10*6/uL NRBC % 1.5 (H) 0 /100 WBC Hgb 8.4 (L) 10.8 - 14.8 g/dL Hct 28.9 (L) 33.9 - 45.4 % MCV 85.5 77.8 - 97.5 fL MCH 24.9 24.9 - 32.6 pg MCHC 29.1 (L) 30.1 - 35.0 g/dL RDW - SD 50.0 (H) 37.6 - 49.1 fL Plt Count 187 (L) 191 - 422 10*3/uL MPV 13.3 (H) 9.0 - 12.6 fL Automated Differential Collection Time: 04/03/24 12:16 AM Result Value Ref Range Segs % 75.8 (H) 40.9 - 70.4 % Lymphs % 6.2 (L) 15.3 - 46.4 % Monos % 11.6 (H) 3.9 - 10.9 % Eos % 1.0 0.3 - 4.1 % Basos % 0.2 0.2 - 1.3 % Immature Grans % 5.2 (H) 0.1 - 1 % Segs # 10.58 (H) 2.03 - 7.09 10*3/uL Lymphs # 0.87 (L) 1.09 - 3.65 10*3/uL Monos # 1.62 (H) 0.27 - 0.78 10*3/uL Eos # 0.14 0.02 - 0.33 10*3/uL Basos # 0.03 0.01 - 0.09 10*3/uL Imm Grans # 0.73 (H) 0.01 - 0.07 10*3/uL Last BMP or CMP ResultLast Lab Result Basic Metabolic Panel Collection Time: 04/02/24 11:14 AM Result Value Ref Range Glucose Lvl 174 (H) 70 - 99 mg/dL BUN 17 9 - 23 mg/dL Creatinine Lvl 1.67 (H) 0.55 - 1.02 mg/dL Sodium Lvl 134 (L) 136 - 145 mEq/L Potassium Lvl 3.6 3.4 - 4.5 mEq/L Chloride Lvl 102 98 - 107 mEq/L CO2 Lvl 22.7 20.0 - 31.0 mEq/L Anion Gap 12.9 10.0 - 20.0 mEq/L Calcium Lvl 8.1 (L) 8.3 - 10.6 mg/dL eGFR 34 (L) >60 mL/min/1.73m2 Culture ResultsNo results found for the last 90 days. Bowel Movements:No data recorded Ventilator Settings Active Medications heparin, 0.1-40 Units/kg/hr, Last Rate: 14 Units/kg/hr (04/04/24 06) aspirin, 81 mg, Oral, Dailycalcium gluconate, 2 g, Intravenous, Once [START ON 04/05/2024] clopidogrel, 600 mg, Oral, Once [START ON 04/06/2024] clopidogrel, 75 mg, Oral, Daily Ensure Enlive, 1 Container, Oral, BID gabapentin, 100 mg, Oral, q8h hydrALAZINE, 25 mg, Oral, q8h insulin glargine, 15 Units, Subcutaneous, q PM lidocaine, 1 patch, Apply externally, Daily [START ON 04/05/2024] meropenem, 500 mg, Intravenous, q24h pantoprazole, 40 mg, Intravenous, q24h DIRK polyethylene glycol (PEG) 3350, 17 g, Oral, Daily sennosides, 2 tablet, Oral, Daily sodium chloride, 500 mL, Intravenous, Once L PRESSER * Reza Perkins MD - 04/04/2024 8:31 AM WHEEL PRESSER [facility] Nephrology Progress Note Chief Complaint: had concerns including Fall. Nephrology following for: Acute Kidney Injury Assessment & Plan: Elvis Freeman is a 63 y/o F with PMH of DM who presented via EMS after being found unresponsive by family. She was noted to have complete heart block with inferior STEMI now s/p placement of temporary pacer and LHC w/ stent x 1 on 03/27. Nephrology is following for acute renal failure requiring CRRT. Off CRRT, now transitioning to HD. Initially GUILHERME requiring dialysis, however has now progressed to ESRD Recommendations: - Will plan to initiate HD starting today - Continue strict I/Os - Infectious work-up and management per CCU and PCCM - Send iron studies - Please place TDC when able - SW/CM consult to assist with arranging HD on discharge ESRD GUILHERME requiring dialysis, non-recovered - Likely ischemic ATN in setting of hemodynamic instability, sepsis, and possible underlying chronic kidney disease - Unknown Cr baseline - Cr 2.77 on admission, peaked at 5.88 on 03/29 - Renal U/S showed bilateral parenchymal disease - Guevara in place, patient remains anuric - On CRRT as of 03/29, aiming for net even initially - CRRT stopped in evening 04/02 - Cr 1.67 -> 2.20 after stopping CRRT, electrolytes stable - Cr 3.76 as of 04/04 - Planning HD today - Patient will need HD chair set up outpatient Volume status:- Some slight signs of volume overload with congestive hepatopathy, pleural effusions - Received PUF 04/03, removing 3L - I/O: net -2.3L on 04/03 - Will manage with HD today Electrolytes:- Stable and appropriate - Optimize with PUTTYING AND CALKING SUPERVISOR Acid-Base:- Bicarb 20.6 -> 19.1 -> 22.7 -> 20.9 -> 24.4 Normocytic anemia:- Hgb 6.8 -> 8.9 post-transfusion 03/28 - Hgb now stable at 9.0 - Anemia workup pending - Ferritin 663 Case discussed with attending. Reza Perkins [facility]ember 2023 8:31 AM --Subjective: No acute events overnight. Patient denies symptoms currently. Planning for HD today. Objective: Vitals:04/03/24 1800 04/03/24 1830 04/03/24 2105 04/03/24 2106 BP: Pulse: 92 91 83 83 Resp: 20 19 Temp: SpO2: 97% 98% 99% 99% Intake/Output Summary (Last 24 hours) at 04/04/2024 0831Last data filed at 04/04/2024 0600 Gross per 24 hour Intake 631.56 ml Output 3000 ml Net -2368.44 ml Physical Exam:Constitutional: Appearance: She is ill-appearing. HENT: Head: Normocephalic and atraumatic. Right Ear: External ear normal. Left Ear: External ear normal. Cardiovascular: Rate and Rhythm: Normal rate and regular rhythm. Pulses: Normal pulses. Heart sounds: Normal heart sounds. Pulmonary: Effort: Pulmonary effort is normal. No respiratory distress. Breath sounds: Normal breath sounds. Abdominal: General: There is no distension. Palpations: Abdomen is soft. Tenderness: There is no abdominal tenderness. Musculoskeletal: General: Normal range of motion. Right lower leg: Edema (trace pitting edema bilaterally) present. Left lower leg: Edema (trace pitting edema bilaterally) present. Skin: General: Skin is warm. Coloration: Skin is not jaundiced. Findings: No bruising. Neurological: General: No focal deficit present. Mental Status: She is oriented to person, place, and time. Dialysis Access: Right IJ Medications:Scheduled: aspirin, 81 mg, Oral, Daily calcium gluconate, 2 g, Intravenous, Once Ensure Enlive, 1 Container, Oral, BID gabapentin, 100 mg, Oral, q8h hydrALAZINE, 25 mg, Oral, q8h insulin glargine, 15 Units, Subcutaneous, q PM lidocaine, 1 patch, Apply externally, Daily [START ON 04/05/2024] meropenem, 500 mg, Intravenous, q24h pantoprazole, 40 mg, Intravenous, q24h DIRK polyethylene glycol (PEG) 3350, 17 g, Oral, Daily sennosides, 2 tablet, Oral, Daily sodium chloride, 500 mL, Intravenous, Once ticagrelor, 90 mg, Oral, q12h DIRK Infusions:heparin, 0.1-40 Units/kg/hr, Last Rate: 14 Units/kg/hr (04/04/24 0607) Data: Labs and imaging reviewed. Lab Results Component Value Date BUN 37 (H) 04/04/2024 Results from last 7 daysLab Units 04/04/24 0011 04/03/24 0015 04/02/24 1114 CREATININE mg/dL 3.78* 2.20* 1.67* Electrolytes:LYTES - Na/K/Cl/CO2: 132*/4.5/103/24.4 (04/04 001) Lab ResultsComponent Value Date Calcium Lvl 8.6 04/04/2024 Phosphorus Lvl 2.7 04/04/2024 Lab ResultsComponent Value Date Hgb 8.4 (L) 04/04/2024 Cosigned by Shashank Pizano MD at 04/04/2024 8:58 PM WHEEL PRESSER L PRESSER L PRESSER L PRESSER Associated attestation - Shashank Pizano MD - 04/04/2024 8:58 PM CST The patient is critically ill with dialysis-dependent ATN in the setting of cardiogenic shock, acute hypoxic respiratory failure and acute metabolic encephalopathy. Now on intermittent dialysis for metabolic clearance and volume management. I have reviewed the laboratory and radiographic data, discussed the patientwith the Fellow, and agree with the exam, assessment and plan as documented. Total CCT: > 35 minutes, including assessment of serial labs, review of vitals and I/O, review of meds, monitoring/adjusting PUTTYING AND CALKING SUPERVISOR prescription, evaluation of the patient, and discussing/coordinating care with the primary team and nurse. Patient is now ESRD and is dialysis dependent for volume management andmetabolic clearance. Merrill Hatfield Professor Division of Renal Diseases and Hypertension [facility] | [facility] [employer] Contact: [facility] secure chat | [phone] * Ирина Kennedy NP - 04/04/2024 8:20 AM WHEEL PRESSER Hospital Course: Elvis Freeman ( 1960) is a 64 year old female who was brought in by EMS after being found down and unresponsive by family and determined to be in complete heart block with Inferior STEMI, now s/p placement of temporary pacer and intubated for airway protection. LHC revealed 100% occlusion of mid RCA, s/p stent x 1 on 03/27 Interval events: Underwent HD with 3 L off. No acute events Trauma cleared patient of C spine precautions Review of Systems All other systems reviewed and are negative. Physical Exam: Constitutional: General: She is not in acute distress. Appearance: Normal appearance. Cardiovascular: Rate and Rhythm: Normal rate. Rhythm irregular. Pulses: Normal pulses. Pulmonary: Effort: Pulmonary effort is normal. No respiratory distress. Breath sounds: Normal breath sounds. Abdominal: General: Bowel sounds are normal. There is no distension. Palpations: Abdomen is soft. Tenderness: There is no abdominal tenderness. Skin: General: Skin is warm and dry. Capillary Refill: Capillary refill takes less than 2 seconds. Neurological: General: No focal deficit present. Mental Status: She is alert and oriented to person, place, and time. Mental status is at baseline. BP 131/76 | Pulse 83 | Temp 37.3 ?C (99.1 ?F) | Resp 19 | Ht 1.651 m (5' 5") |Wt 85.7 kg (188 lb 15 oz) | SpO2 99% | BMI 31.44 kg/m? aspirin, 81 mg, Oral, Dailycalcium gluconate, 2 g, Intravenous, Once Ensure Enlive, 1 Container, Oral, BID gabapentin, 100 mg, Oral, q8h hydrALAZINE, 25 mg, Oral, q8h insulin glargine, 15 Units, Subcutaneous, q PM lidocaine, 1 patch, Apply externally, Daily [START ON 04/05/2024] meropenem, 500 mg, Intravenous, q24h pantoprazole, 40 mg, Intravenous, q24h DIRK polyethylene glycol (PEG) 3350, 17 g, Oral, Daily sennosides, 2 tablet, Oral, Daily sodium chloride, 500 mL, Intravenous, Once ticagrelor, 90 mg, Oral, q12h DIRK heparin, 0.1-40 Units/kg/hr, Last Rate: 14 Units/kg/hr (04/04/24 0607) Encounter Date: 03/27/24XR chest 1 view Narrative EXAM: XR CHEST 1 VIEW DATE: 04/01/2024 8:05 INDICATION: dyspnea . TECHNIQUE: Chest 1 view FINDINGS: Comparison is made to March 31. ImpressionCardiomediastinal silhouette is unchanged. A right jugular CVC remains in place. There are increasing bilateral infrahilar airspace opacities that could be dueto atelectasis, aspiration or pneumonia. No pleural effusions. Transthoracic echo (TTE) complete Result Date: 03/31/2024 Left Ventricle: Left ventricle is smaller than normal. Normal wall thickness in the left ventricle. Left ventricular mass is normal. Normal systolic function with an estimated EF of 60 - 65%. Global longitudinal strain is normal. LV GLS is -18.3%. Unable to assess diastolic function in the left ventricle due to mitral annular calcification. Right Ventricle: Right ventricle size is normal. Normal systolic function in the right ventricle. Left Atrium: Left atrium is mildly dilated. Aortic Valve: Aortic valve is trileaflet. Mildly thickened leaflets in the aortic valve. Mildly calcified leaflets in the aortic valve. Mitral Valve: No leaflet thickening in the mitral valve. No leaflet calcification in the mitral valve. Severe posterior mitral annular calcification. Mild mitral regurgitation present. Mild mitral stenosis present. Mean transmitral gradient 7 mmHg at HR 85 bpm Tricuspid Valve: Mild tricuspid regurgitation present. RVSP is 41.00 mmHg. Mild pulmonary hypertension present. RVSP is 41.00 mmHg. Aorta: Normal sized sinus of Valsalva present. Pericardium: No pericardial effusion present. Transthoracic echo (TTE) limitedResult Date: 03/31/2024 Left Ventricle: Left ventricle size is normal. Septal thickening in the left ventricle. Left ventricular regional wall motion abnormalities present. See diagram for wall motion findings. Normal systolic function with an estimated EF of 55 - 60%. Right Ventricle: Right ventricle size is normal. Mildly reduced systolic function in the right ventricle. Aortic Valve: Trileaflet aortic valve sclerosis is present. Mildly thickened leaflets in the aortic valve. Mitral Valve: Moderate posterior mitral annular calcification. Tricuspid Valve: Mild tricuspid regurgitation present. Pulmonary hypertension is not present. Pericardium: No pericardial effusion present. Overall normal LV function, though with inferior/posterior and inferoseptal WMA as noted above; remaining rai appear hyperdynamic. Mildly reduced RV function. Transthoracic echo (TTE) completeResult Date: 03/28/2024 Left ventricle is normal in size with mildly reduced global systolic function and an estimated ejection fraction of 45-50%, by the method of discs. Diastolic function is indeterminate. Right ventricle is normal in size and systolic function. Left atrium appears normal in size. Right atrium is normal in size Aortic valve is trileaflet and sclerotic with normal function. There is mild mitral valve stenosis and a heavily calcified annulus. The transvalvular mean gradient is 4 mmHg, at a HR of 90 bpm. and the MV area by continuity eq is 1.5 cm2.No significant mitral valve regurgitation is observed. Tricuspid valve leaflets are normal. There is trace tricuspid regurgitation. Unable to estimate right ventricular systolic pressure due to an insufficient TR jet. Pulmonic valve appears normal in structure with trace regurgitation. Aortic root is normal in diameter. Inferior vena cava is normal in diameter with >50% respiratory variation in size. No pericardial effusion is seen. No prior study is currently available for comparison. Principal Problem: ST elevation myocardial infarction (STEMI) of inferior wall ([facility]) Active Problems: Heart block Hyperglycemia due to diabetes mellitus (CMS/HCC) (HCC) On mechanically assisted ventilation (CMS/HCC) (HCC) Fall GUILHERME (acute kidney injury) (HCC) Acute respiratory alkalosis Anemia of chronic disease Toxic metabolic encephalopathy Acute hypoxemic respiratory failure (HCC) Atelectasis Cardiogenic shock (HCC) Severe sepsis (HCC) Shock liver Hyperkalemia Pleural effusion, bilateral Adrenal nodule (HCC) Shock (CMS/HCC) (HCC) Plan: Neuro/Psych:-Mentation intact -Continue gabapentin (renally dosed) for neuropathy -CT brain showing no acute abnormality. CT cervical spine also showing no fracture or traumatic malalignment -Pain control with Tylenol PRN and daily lidocaine patch -Continue delirium precautions and adherence to sleep-wake cycle. CV:-s/p temp pacer 03/27 and LHC with PCI x 1 to RCA on 03/27. Subsequent removal of temp pacer and patient redeveloped 2nd and 3rd degree heart block. -EP following. Plan for outpatient follow up -Continue aspirin and Brilinta. Statin held owing to elevated LFTs -Hydralazine started for elevated blood pressure -A-fib, continue heparin drip -ECHO showing EF 45%, normal RV size and systolic function -RUE US negative for DVT Resp:-Supplemental O2 via nasal cannula. -CT chest showing no acute abnormalities with trace pleural effusions, atelectasis -Duonebs prn -Continue volume expansion protocol and incentive spirometry GI/Nutrition: -Heart diet with Ensure supplementation -Protonix ppx -Continue bowel regimen and titrate for 1-2 BMs daily -CT abdomen and pelvis showing no acute traumatic abnormalities and heterogeneous left adrenal nodule measuring 3.2 cm -Elevated LFTs likely 2/2 ischemia from CHB or ischemia. Trend Renal/Electrolytes:-GUILHERME could be 2/2 ischemia in the setting of CHB. Renal US shows chronic parenchymal disease. Nephrology following -CRRT stopped 04/03. Now on HD -Monitor UOP with strict I's/O's -Trend BUN/Cr -Avoid nephrotoxic agents -Replace electrolytes as needed Endo: -Hgb A1c 10.4 -Increasing insulin requirements. Yesterday patient was given extra Glargine. Now on 15 units daily with medium dose SSI. Goal blood glucose 100-180 Heme/Onc: -Monitor for bleeding and coagulopathies -Maintain Hgb > 7 and Platelets > 10k ID: -Continues on empiric Merrem day 7 of 7 -Procal elevated and repeat is fairly unchanged. Cultures negative to date -MRSA nares, strep pna, and legionella all negative -Respiratory culture negative to date -Prior to Merrem received 2 days of Cefepime, and 5 days of Vancomycin -CT maxillofacial shows diffuse peridental disease but no abscess, follow-up outpatient per dentistry Musculoskeletal/Skin: -Continue wound care and sacral decubitus prevention -PT/OT and out of be to chair daily Prophylaxis:-DVT ppx: Heparin -PUD ppx: Protonix Vascular/ access:Peripheral IV 03/31/24 Anterior;Left Forearm (Active) Peripheral IV 03/31/24 Anterior;Left;Upper Arm (Active) Hemodialysis Cath Triple Lumen 03/29/24 Right Non-tunneled catheter Internal jugular vein (Active) Compliance:Restraints: None Indwelling Guevara Catheter: None Central Venous Access: Needed for HD Arterial Access: None Code Status: Full Disposition: CCU I spent a total of 25 minutes of critical care time with this patient independently, not including procedure time, then plan was discussed with ME PCCM Attending Dr. Jaspal Kennedy, MSN, [facility] [place] #[id number] Division of Pulmonary Critical Care [facility] [email or web address] Cosigned by Jacky Shay MD at 04/04/2024 4:50 PM WHEEL PRESSER L PRESSER L PRESSER * Arturo Guillen MD - 04/04/2024 7:28 AM WHEEL PRESSER CCU Progress Note Admission Date: 03/27/2024 CCU Day: 8 Problem List Principal Problem: ST elevation myocardial infarction (STEMI) of inferior wall (HCC) Active Problems: Heart block Hyperglycemia due to diabetes mellitus (CMS/HCC) (HCC) On mechanically assisted ventilation (CMS/HCC) (HCC) Fall GUILHERME (acute kidney injury) (HCC) Acute respiratory alkalosis Anemia of chronic disease Toxic metabolic encephalopathy Acute hypoxemic respiratory failure (HCC) Atelectasis Cardiogenic shock (HCC) Severe sepsis (HCC) Shock liver Hyperkalemia Pleural effusion, bilateral Adrenal nodule (HCC) Shock (CMS/HCC) (HCC) Assessment & Plan Ms. Freeman is a 63-year-old female presented by EMS after being found down and unresponsive by family and determined to be in complete heart block, now s/p placement of temporary pacer -- CHB/ECG changes concerning for STEMI - s/p Temp Pacer, [facility] showed 100% RCA occlusion s/p PCI with HARI x1 to mid RCA (via R Fem access). Changes - 04/04/24: - s/p CRRT initation 03/29, stopped ON 04/02 and nephro to reassess in AM for HD needs - Continue vanc, cef - OMFS: no sepsis risk, will need dental care in outpatient setting - Transvenous pacer removed 03/28 - Extubated 03/28 Cardiovascular: #STEMI s/p PCI with HARI to mid RCA (100% RCA occlusion) #CAD #Complete Heart Block # - EP to evaluate for permanent pacemaker - EKG now paced - troponin initially 1846 > 2205 > 8000 -Patient s/p PCI with HARI, currently HDS and extubated 03/28, loaded with Brilinta/Aspirin during procedure - TTE (03/31): EF 60-65%, RV normal systolic fxn, LA mild dilation Plan - Continue ASA 81, Brilinta 90mg daily - Holding Statin for now given elevated LFT's, will resume when resolved - Hydral 25mg q8h Neurology: - Pain control: Tylenol prn - Fall precautions - CT head negative Respiratory: Acute respiratory failure Pulmonary edema - Extubated 03/28 - On 4.5 NC - CXR 04/01 with worsening diffuse opacities - Will pull fluids with CRRT - Aspiration precautions Gastroenterology: #Transaminitis, improving - Likely shock liver- finally down trending 04/01 - Nutrition, heart healthy diet - PUD ppx - BM Plan: -Trend LFT's Renal: #GUILHERME on CKD? - Cr 2.75, unknown baseline - monitor UOP - pt anuric -Cr uptrending, with urine output decreasing - Renal US Bilateral renal parenchymal disease. - nephrology consulted, initated CRRT 03/29 Plan: - Urine Lytes, Urine Protein/Creatinine pending - CRRT stopped ON, nephro to reassess in AM for HD needs - monitor urine output Infectious Disease: #Persistent Fever, concern for Sepsis #Leukocytosis, improving #Lactic acidosis, improved - Afebrile since 03/28 2000 - Lactic acid 5.32 -> 2.34 -> 1.33 - Continue vanc, kimberly - cultures negative to date but patient was taking abx days prior for dental abscess - CT maxillofacial: diffuse periodontal disease, some soft tissue swelling in L vestibular/buccal space but no abscess Hematology: #Anemia - family reports no hx - Hb 8.0 yesterday - Hb 7.1, after PCI - no signs of bleeding - Hb 03/29 6.8 > transfused 1 U pRBC, responded appropriately Plan - CTM - Follow-up Iron studies (send out lab 2-3 days) - Will transfuse to keep Hgb >7.0 Endocrinology: - on home insulin +/- metformin - Goal BS: 140-180 - glucose checks q4 - A1c 10.4 - TSH 0.914 Plan: -Glargine 5u daily -SSI -CTM DVT PPX: Heparin SubQ PUD PPX : Protonix Diet: Heart healthy PT/OT indicated: consulted Lines: Peripheral IV x 2, G tube, Guevara Catheter Guevara: day 1 Code status: FULL Dispo: pending clinical stablility Contact: see separate note for contact info Patient staffed with attending physician, Dr. Gayle. Arturo Guillen MD Internal Medicine | PGY-1 [facility] | [facility] Subjective Overnight, no events/concerns. This morning patient reports breathing better. Objective Vital Signs Current: Visit Vitals BP 131/76 Pulse 83 Temp 37.3 ?C (99.1 ?F) Resp 19 24 Hour: Vitals: 04/03/24 1800 04/03/24 1830 04/03/245 04/03/242105 BP: Pulse: 92 91 83 83 Resp: 24 Temp: SpO2: 97% 98% 99% 99% Intake/Output: I/O last 3 completed shifts: In: 1410.4 (16.5 mL/kg) [P.O.:300; I.V.:1110.4 (13 mL/kg)] Out: 3670 (42.8 mL/kg) [Other:3670] Weight: 85.7 kg Intake/Output Summary (Last 24 hours) at 04/04/2024 0728Last data filed at 04/04/2024 0600 Gross per 24 hour Intake 664.47 ml Output 3000 ml Net -2335.53 ml Net intake/output since admission: Net IO Since Admission: -3,302.19 mL[04/04/2428] PHYSICAL EXAM General Appearance: no acute distress, no pallorHEENT: Extra ocular movements intact, no scleral icterus, mucous membrane moist, external ears normal Neck: Supple, FROM Lungs: respiratory effort normal, CTA bilaterally, no wheezes/rales/rhonchi Heart: Regular rate and regular rhythm, no murmur Abdomen: soft, non-tender, non-distended MSK/Extremities: pulses 2+. No obvious deformity. Skin: No lesions, no rash. No jaundice. CRRT running at [facility] site Neurologic: AOx3, no focal deficits, speech clear Psych: Mood congruent affect, responds appropriately to questions. SCHEDULED HOSPITAL MEDICATIONSaspirin, 81 mg, Oral, Daily calcium gluconate, 2 g, Intravenous, Once Ensure Enlive, 1 Container, Oral, BID gabapentin, 100 mg, Oral, q8h hydrALAZINE, 25 mg, Oral, q8h insulin glargine, 15 Units, Subcutaneous, q PM lidocaine, 1 patch, Apply externally, Daily [START ON 04/05/2024] meropenem, 500 mg, Intravenous, q24h pantoprazole, 40 mg, Intravenous, q24h DIRK polyethylene glycol (PEG) 3350, 17 g, Oral, Daily sennosides, 2 tablet, Oral, Daily sodium chloride, 500 mL, Intravenous, Once ticagrelor, 90 mg, Oral, q12h DIRK PRN Medications:PRN medications: dextrose, dextrose, glucagon, heparin, insulin lispro, ipratropium-albuterol, menthol-zinc oxide, oxyCODONE, [COMPLETED] Insert peripheral IV AND [COMPLETED] Saline lock IV AND sodium chloride, [COMPLETED] Insert peripheral IV AND [COMPLETED] Saline lock IV AND sodium chloride Drips: heparin, 0.1-40 Units/kg/hr, Last Rate: 14 Units/kg/hr (04/04/24606) LABSResults from last 7 days Lab Units 04/04/24 0542 04/04/24 0011 04/03/24 0016 WBC 10*3/uL 13.06* 13.83* 13.97* HEMOGLOBIN g/dL 8.4* 9.0* 9.1* MCV fL 85.5 85.9 85.2 Results from last 7 daysLab Units 04/04/24 0542 04/04/24 0011 04/03/24 0016 WBC 10*3/uL 13.06* 13.83* 13.97* HEMOGLOBIN g/dL 8.4* 9.0* 9.1* MCV fL 85.5 85.9 85.2 Results from last 7 daysLab Units 04/04/24 0011 04/03/24 0015 04/02/24 1125 04/02/24 1114 POC SODIUM, ARTERIAL mEq/L -- -- 133* -- SODIUM mEq/L 132* 132* -- 134* POC POTASSIUM, ARTERIAL mEq/L -- -- 3.8 -- POTASSIUM mEq/L 4.5 4.4 -- 3.6 POC CHLORIDE mEq/L -- -- 101 -- CHLORIDE mEq/L 103 102 -- 102 CO2 mEq/L 24.4 20.9 -- 22.7 BUN mg/dL 37* 18 -- 17 PHOSPHORUS mg/dL 2.7 2.3* -- 2.7 Results from last 7 daysLab Units 04/04/24 0011 04/03/24 0015 04/02/24 0314 AST U/L 119* 200* 389* ALT U/L 818* 1,078* 1,358* Results from last 7 daysLab Units 04/04/24 0011 04/03/24 1814 04/03/24 1141 INR 1.22* 1.19* 1.24* PROTIME Seconds 15.7* 15.4* 15.9* PTT Seconds 138.4* 77.5* 81.4* No lab exists for component: "APH", "APCO2", "APO2"No lab exists for component: "POCGLU" Microbiology:No results found for the last 90 days. OTHER DATA Radiology Review:ECG 12 lead Result Date: 04/04/[address] ABNORMALITY, POSSIBLE LATERAL SUBENDOCARDIAL INJURY ABNORMAL ECG NO PREVIOUS ECGS AVAILABLE Cosigned by Carla Gayle MD at 04/04/2024 8:31 AM CST L PRESSER L PRESSER Associated attestation - Carla Gayle MD - 04/04/2024 8:31 AM CST The patient was seen and examined with the resident. The relevant lab results, imaging and EKGs were personally reviewed, and the medications were reconciled. I agree with above mentioned assessment and plan. Total amount of critical care time spent throughout the day excluding procedural time was - 35 minutes. The patient remain critically ill, and requires ICU level of care. -- Pt with inf STEMI, now s/p RCA PCI, normal BiV function-- Septic shock - ? Dental abscess, on antibiotics, OMFS on board - Antibiotic duration? -- GUILHERME - on CRRT, nephrology on board, will start on iHD today -- CHB - resolved - will be discharged home on Event monitor -- She will be discharged home with home health and HD chair -- Continue GI and DVT prophylaxis per ICU protocol -- Appreciate PCCM input on non-cardiac critical issues Patient Active Problem ListDiagnosis Date Noted ST elevation myocardial infarction (STEMI) of inferior wall ([facility]) 03/28/2024 Heart block 03/27/2024 Hyperglycemia due to diabetes mellitus (CMS/HCC) (HCC) 03/27/2024 On mechanically assisted ventilation (CMS/HCC) (HCC) 03/27/2024 Fall 03/27/2024 GUILHERME (acute kidney injury) ([facility]) 03/27/2024 Acute respiratory alkalosis 03/27/2024 Anemia of chronic disease 03/27/2024 Toxic metabolic encephalopathy 03/27/2024 Acute hypoxemic respiratory failure ([facility]) 03/27/2024 Atelectasis 03/27/2024 Cardiogenic shock ([facility]) 03/27/2024 Severe sepsis ([facility]) 03/27/2024 Shock liver 03/27/2024 Hyperkalemia 03/27/2024 Pleural effusion, bilateral 03/27/2024 Adrenal nodule ([facility]) 03/27/2024 Shock ([facility]) ([facility]) 03/27/2024 * Alyson Gary, PT - 04/03/2024 2:21 PM WHEEL PRESSER Treatment Session Note Patient Name: Elvis Freeman Today's Date: 04/03/2024 Preferred Language: [place] Assessment & Plan Assessment: Pt now off CRRT and tolerated amb short distance in hallway. She is deconditoned and required several rest breaks. She has good potential to regain her independence. Currently anticipate home with PT Plan: PT Plan: Skilled PT PT Frequency: 4-5 times per week until discharge PT Discharge Recommendations: Home health PT Therapy discharge recommendations are made by determining the patient's prior level of function, assessing current function level and establishing rehab potential. The overall discharge plan may be affected by input from Physicians, Care Coordination, medical condition/status, family support and insurance benefits. Subjective "I'm just so tired." Precautions: Medical Precautions: standard ObjectiveGeneral Visit Information: PT Last Visit PT Received On: 04/03/24 GeneralOthers Present: spouse and son present Pt found supine in bed, now off CRRT. She performed BLE warm-up therex. Shecame to sitting on EOB and dangled to acclimate. Pt placed on tram monitor and 3LO2. She stood to RW and amb in hallway. Required seated rest break in recliner due to fatigue. She returned to room and stood again for 1-2' to be cleaned from b.m. She was left in recliner, legs elevated, nsg aware of pt's status. Activity Tolerance:Endurance: Tolerates less than 10 min exercise, no significant change in vital signs CognitionOverall Cognitive Status: Impaired Behavior/Cognition: Lethargic, Requires redirection TreatmentBed Mobility 1: Level of Assistance 1: Partial/Mod assistance Bed Mobility To/From: Supine to sit on EOB Transfers 1: Level of Assistance 1: Partial/Mod assistance Transfer To/From: [id number] Gait training: Gait Training Time Entry: 38 Gait Training Activity 1:Distance (enter in feet): 15' x 2, seated rest break Assistive Devices And Adaptive Equipments: Walker, front-wheeled Level of Assistance 1: Supervision/touching assistance Gait Training Activity 1 Comment: Pt amb with slower pace, decreased B step length, head down AM-PAC Basic Mobility:AM-PAC Basic Mobility Inpatient Turning in bed without bedrails: None Lying on back to sitting on edge of flat bed: A Little Bed to chair: A Little Standing up from chair: A Little Walk in room: A Little Climbing 3-5 stairs: A Lot Mobility Inpatient Raw Score: 18 JH-HLM Goal: 6 Mobility: Highest Level of Mobility Performed (JH-HLM)JH-HLM Goal: 6 Highest Level of Mobility Performed (JH-HLM): Walked 25 feet or more (i.e. walked outside of room) Modified [place] Patient Education: Education Documentation Home Therapy Program, taught by Alyson Gary, PT at 04/02/2024 2:34 PM. Learner: Patient Readiness: Acceptance Method: Explanation Response: Verbalizes Understanding Education CommentsNo comments found. Goals:Encounter Goals Encounter Goals (Active) Patient will perform grooming with mod I standing at sink. Start: 04/02/24 Expected End: 05/02/24 Pt will perform >8 min of OOB ADL routine with no rest breaks to improve overall activity tolerance. Start: 04/02/24 Expected End: 05/02/24 Pt will be mod I with bed mobility Start: 04/02/24 Expected End: 04/26/24 Pt will amb 400' mod I Start: 04/02/24 Expected End: 04/26/24 Within 2 weeks of starting therapy, the patient and/or family/caregiver will demonstrate independence and be compliant in a written HEP in order to maximize gains made during therapy. Start: 04/02/24 Expected End: 05/02/24 Pt will be mod I with all transfers Start: 04/02/24 Expected End: 04/26/24 Treatment Note: If this is the last documented treatment, then it will signify discharge from acute care prior to discharge from the therapy service and will serve as the discharge summary. Alyson Gary, PT L PRESSER * Jacky Echevarria-Tayo Shay MD - 04/03/2024 10:52 AM WHEEL PRESSER [facility] ICU Note This patient was seen with FISH PROCESSING SUPERVISOR Brent and Dr. Verdugo and bedside RN as part of a multidisciplinary team. Briefly this is a 63 y/o female who presented after a fall due to CHB related to inferior STEMI. 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 CT C-spine without any fractures or misalignments. Recommend discontinuing C-spine precautions. -currently on DAPT; statin on hold (due to liver injury) -continue to monitor for bradyarrythmias -continue to monitor respiratory status -repeat CXR -continue to monitor LFTs which are improving -continued on CRRT; recommend transitioning to iHD -continue basal insulin (recommend increasing to 10 units) and continue SSI -recommend stopping Vancomycin (completed 7 days); continuing Meropenem - continue to monitor temperature/WBC curve. Recheck PCT. ICU Quality Review -ICU day: 7 days -mechanically ventilated: no -restraints indicated: no -PT/OT: ordered -DVT prophylaxis: chemical prophylaxis -GI prophylaxis: yes -central Lines: RIJ dialysis line -arterial Lines: none -devices: CRRT -guevara: no -tubes/drains: none -pressure injury: none I spent a total of 35 minutes caring for this patient including reviewing the patients chart, obtaining relevant history from the patient, performing a physical examination, interpreting date and coordinating care with consultants. This is exclusive to any procedures or teaching. Vitals: Visit Vitals BP 125/73 Pulse 96 Temp 37.3 ?C (99.1 ?F) Resp (!) 27 Ht 1.651 m (5' 5") Wt 85.7 kg (188 lb 15 oz) SpO2 96% BMI 31.44 kg/m? Smoking Status Unknown BSA 1.98 m? Tube/Drain Output: Output by Drain (mL) 04/01/24 07 - 04/01/24 1859 04/01/24 1900 - 04/02/24 0659 04/02/24 0700 - 04/02/24 1859 04/02/24 1900 - 04/03/24 0659 04/03/24 0700 - 04/03/24 1052 Patient has no LDAs of requested type attached. Labs: Last ABG Results from last 7 days Lab Units 04/02/24 1125 04/02/24 0323 04/01/24 1941 POC PH, ARTERIAL 7.42 7.42 7.43 POC PCO2, ARTERIAL mmHg 34* 34* 31* POC PO2, ARTERIAL mmHg 113 91 137 POC HCO3, ARTERIAL mMol/L 22 22 21* POC SO2, ARTERIAL (CALC) % 98.5 97.2 99.2 POC SO2, ARTERIAL % 99.0 98.0 98.8 POC BASE EXCESS, ARTERIAL mMol/L -2 -2 -3* Last CBC ResultLast Lab Result Automated Differential Collection Time: 04/03/24 12:16 AM Result Value Ref Range Segs % 75.8 (H) 40.9 - 70.4 % Lymphs % 6.2 (L) 15.3 - 46.4 % Monos % 11.6 (H) 3.9 - 10.9 % Eos % 1.0 0.3 - 4.1 % Basos % 0.2 0.2 - 1.3 % Immature Grans % 5.2 (H) 0.1 - 1 % Segs # 10.58 (H) 2.03 - 7.09 10*3/uL Lymphs # 0.87 (L) 1.09 - 3.65 10*3/uL Monos # 1.62 (H) 0.27 - 0.78 10*3/uL Eos # 0.14 0.02 - 0.33 10*3/uL Basos # 0.03 0.01 - 0.09 10*3/uL Imm Grans # 0.73 (H) 0.01 - 0.07 10*3/uL Complete Blood Count Collection Time: 04/03/24 12:16 AM Result Value Ref Range WBC 13.97 (H) 4.15 - 10.55 10*3/uL RBC 3.37 (L) 3.74 - 5.22 10*6/uL NRBC % 2.2 (H) 0 /100 WBC Hgb 9.1 (L) 10.8 - 14.8 g/dL Hct 28.7 (L) 33.9 - 45.4 % MCV 85.2 77.8 - 97.5 fL MCH 27.0 24.9 - 32.6 pg MCHC 31.7 30.1 - 35.0 g/dL RDW - SD 47.8 37.6 - 49.1 fL Plt Count 191 191 - 422 10*3/uL MPV 12.8 (H) 9.0 - 12.6 fL Last BMP or CMP ResultLast Lab Result Basic Metabolic Panel Collection Time: 04/02/24 11:14 AM Result Value Ref Range Glucose Lvl 174 (H) 70 - 99 mg/dL BUN 17 9 - 23 mg/dL Creatinine Lvl 1.67 (H) 0.55 - 1.02 mg/dL Sodium Lvl 134 (L) 136 - 145 mEq/L Potassium Lvl 3.6 3.4 - 4.5 mEq/L Chloride Lvl 102 98 - 107 mEq/L CO2 Lvl 22.7 20.0 - 31.0 mEq/L Anion Gap 12.9 10.0 - 20.0 mEq/L Calcium Lvl 8.1 (L) 8.3 - 10.6 mg/dL eGFR 34 (L) >60 mL/min/1.73m2 Culture ResultsNo results found for the last 90 days. Bowel Movements:No data recorded Ventilator Settings Active Medications heparin, 0.1-40 Units/kg/hr, Last Rate: 19 Units/kg/hr (04/03/24 0711) physiological irrigating solution, 2,500 mL/hr aspirin, 81 mg, Oral, Dailycalcium gluconate, 2 g, Intravenous, Once Ensure Enlive, 1 Container, Oral, BID gabapentin, 100 mg, Oral, q8h hydrALAZINE, 25 mg, Oral, q8h insulin glargine, 5 Units, Subcutaneous, q PM lidocaine, 1 patch, Apply externally, Daily meropenem, 500 mg, Intravenous, q8h pantoprazole, 40 mg, Intravenous, q24h DIRK polyethylene glycol (PEG) 3350, 17 g, Oral, Daily sennosides, 2 tablet, Oral, Daily sodium chloride, 500 mL, Intravenous, Once ticagrelor, 90 mg, Oral, q12h DIRK L PRESSER L PRESSER * Ирина Kennedy NP - 04/03/2024 9:33 AM WHEEL PRESSER Hospital Course: Elvis Freeman ( 1960) is a 64 year old female who was brought in by EMS after being found down and unresponsive by family and determined to be in complete heart block with Inferior STEMI, now s/p placement of temporary pacer and intubated for airway protection. LHC revealed 100% occlusion of mid RCA, s/p stent x 1 on 03/27 Interval events: OMFS/denistry evaluated patient. No sepsis risk. Will need dental care in outpatient setting Remains on heparin drip. CRRT stopped yesterday. Plan for evaluation for HD today Review of Systems All other systems reviewed and are negative. Physical Exam: Constitutional: General: She is not in acute distress. Appearance: Normal appearance. Cardiovascular: Rate and Rhythm: Normal rate. Rhythm irregular. Pulses: Normal pulses. Pulmonary: Effort: Pulmonary effort is normal. No respiratory distress. Breath sounds: Normal breath sounds. Abdominal: General: Bowel sounds are normal. There is no distension. Palpations: Abdomen is soft. Tenderness: There is no abdominal tenderness. Skin: General: Skin is warm and dry. Capillary Refill: Capillary refill takes less than 2 seconds. Neurological: General: No focal deficit present. Mental Status: She is alert and oriented to person, place, and time. Mental status is at baseline. BP 150/65 | Pulse 89 | Temp 37.1 ?C (98.8 ?F) | Resp (!) 6 | Ht 1.651 m (5' 5") | Wt 85.7 kg (188 lb 15 oz) | SpO2 97% | BMI 31.44 kg/m? aspirin, 81 mg, Oral, Dailycalcium gluconate, 2 g, Intravenous, Once gabapentin, 100 mg, Oral, q8h hydrALAZINE, 50 mg, Oral, Daily insulin glargine, 5 Units, Subcutaneous, q PM lidocaine, 1 patch, Apply externally, Daily meropenem, 500 mg, Intravenous, q8h pantoprazole, 40 mg, Intravenous, q24h DIRK sodium chloride, 500 mL, Intravenous, Once ticagrelor, 90 mg, Oral, q12h DIRK vancomycin, 500 mg, Intravenous, q12h heparin, 0.1-40 Units/kg/hr, Last Rate: 18 Units/kg/hr (04/02/24 0446) physiological irrigating solution, 2,500 mL/hr Encounter Date: 03/27/24XR chest 1 view Narrative EXAM: XR CHEST 1 VIEW DATE: 04/01/2024 8:05 INDICATION: dyspnea . TECHNIQUE: Chest 1 view FINDINGS: Comparison is made to March 31. ImpressionCardiomediastinal silhouette is unchanged. A right jugular CVC remains in place. There are increasing bilateral infrahilar airspace opacities that could be dueto atelectasis, aspiration or pneumonia. No pleural effusions. Transthoracic echo (TTE) complete Result Date: 03/31/2024 Left Ventricle: Left ventricle is smaller than normal. Normal wall thickness in the left ventricle. Left ventricular mass is normal. Normal systolic function with an estimated EF of 60 - 65%. Global longitudinal strain is normal. LV GLS is -18.3%. Unable to assess diastolic function in the left ventricle due to mitral annular calcification. Right Ventricle: Right ventricle size is normal. Normal systolic function in the right ventricle. Left Atrium: Left atrium is mildly dilated. Aortic Valve: Aortic valve is trileaflet. Mildly thickened leaflets in the aortic valve. Mildly calcified leaflets in the aortic valve. Mitral Valve: No leaflet thickening in the mitral valve. No leaflet calcification in the mitral valve. Severe posterior mitral annular calcification. Mild mitral regurgitation present. Mild mitral stenosis present. Mean transmitral gradient 7 mmHg at HR 85 bpm Tricuspid Valve: Mild tricuspid regurgitation present. RVSP is 41.00 mmHg. Mild pulmonary hypertension present. RVSP is 41.00 mmHg. Aorta: Normal sized sinus of Valsalva present. Pericardium: No pericardial effusion present. Transthoracic echo (TTE) limitedResult Date: 03/31/2024 Left Ventricle: Left ventricle size is normal. Septal thickening in the left ventricle. Left ventricular regional wall motion abnormalities present. See diagram for wall motion findings. Normal systolic function with an estimated EF of 55 - 60%. Right Ventricle: Right ventricle size is normal. Mildly reduced systolic function in the right ventricle. Aortic Valve: Trileaflet aortic valve sclerosis is present. Mildly thickened leaflets in the aortic valve. Mitral Valve: Moderate posterior mitral annular calcification. Tricuspid Valve: Mild tricuspid regurgitation present. Pulmonary hypertension is not present. Pericardium: No pericardial effusion present. Overall normal LV function, though with inferior/posterior and inferoseptal WMA as noted above; remaining rai appear hyperdynamic. Mildly reduced RV function. Transthoracic echo (TTE) completeResult Date: 03/28/2024 Left ventricle is normal in size with mildly reduced global systolic function and an estimated ejection fraction of 45-50%, by the method of discs. Diastolic function is indeterminate. Right ventricle is normal in size and systolic function. Left atrium appears normal in size. Right atrium is normal in size Aortic valve is trileaflet and sclerotic with normal function. There is mild mitral valve stenosis and a heavily calcified annulus. The transvalvular mean gradient is 4 mmHg, at a HR of 90 bpm. and the MV area by continuity eq is 1.5 cm2.No significant mitral valve regurgitation is observed. Tricuspid valve leaflets are normal. There is trace tricuspid regurgitation. Unable to estimate right ventricular systolic pressure due to an insufficient TR jet. Pulmonic valve appears normal in structure with trace regurgitation. Aortic root is normal in diameter. Inferior vena cava is normal in diameter with >50% respiratory variation in size. No pericardial effusion is seen. No prior study is currently available for comparison. Principal Problem: ST elevation myocardial infarction (STEMI) of inferior wall (HCC) Active Problems: Heart block Hyperglycemia due to diabetes mellitus (CMS/HCC) (HCC) On mechanically assisted ventilation (CMS/HCC) (HCC) Fall GUILHERME (acute kidney injury) (HCC) Acute respiratory alkalosis Anemia of chronic disease Toxic metabolic encephalopathy Acute hypoxemic respiratory failure (HCC) Atelectasis Cardiogenic shock (HCC) Severe sepsis (HCC) Shock liver Hyperkalemia Pleural effusion, bilateral Adrenal nodule (HCC) Shock (CMS/HCC) (HCC) Plan: Neuro/Psych:-Mentation intact -Continue gabapentin (renally dosed) for neuropathy -CT brain showing no acute abnormality. CT cervical spine also showing no fracture or traumatic malalignment -CT maxillofacial completed. Consult dental if abscess is appreciated. Currently pending read -Pain control with Tylenol PRN and daily lidocaine patch -Continue delirium precautions and adherence to sleep-wake cycle. CV:-s/p temp pacer 03/27 and LHC with PCI x 1 to RCA on 03/27. Subsequent removal of temp pacer and patient redeveloped 2nd and 3rd degree heart block. Transcutaneous pacer pads, dopamine, and atropine all at bedside but currently patient is asymptomatic. EP following. -Continue aspirin and Brilinta. Statin held owing to elevated LFTs -Hydralazine started for elevated blood pressure -A-fib, continue heparin drip -ECHO showing EF 45%, normal RV size and systolic function -RUE US negative for DVT Resp:-Supplemental O2 via nasal cannula. -CT chest showing no acute abnormalities with trace pleural effusions, atelectasis -Duonebs prn -Continue volume expansion protocol and incentive spirometry GI/Nutrition: -Heart diet with Ensure supplementation -Protonix ppx -Continue bowel regimen and titrate for 1-2 BMs daily -CT abdomen and pelvis showing no acute traumatic abnormalities and heterogeneous left adrenal nodule measuring 3.2 cm -Elevated LFTs likely 2/2 ischemia from CHB or ischemia. Trend Renal/Electrolytes:-GULIHERME could be 2/2 ischemia in the setting of CHB. Renal US shows chronic parenchymal disease. Nephrology consulted. -CRRT stopped, plan to transition to HD today. -Monitor UOP with strict I's/O's -Trend BUN/Cr -Avoid nephrotoxic agents -Replace electrolytes as needed Endo: -Hgb A1c 10.4 -Continue strict glycemic control with Glargine 5 units daily and medium dose sliding scale insulin to keep blood glucose 100-180 -Would recommend endocrine consult Heme/Onc:-Monitor for bleeding and coagulopathies -Maintain Hgb > 7 and Platelets > 10k ID: -Continues on empiric Merrem day 6 of 7 -Procal elevated. Cultures negative to date -MRSA nares, strep pna, and legionella all negative -Respiratory culture negative to date -Prior to Merrem received 2 days of Cefepime, and 5 days of Vancomycin -CT maxillofacial shows diffuse peridental disease but no abscess, follow-up outpatient per dentistry Musculoskeletal/Skin: -Continue wound care and sacral decubitus prevention -PT/OT and out of be to chair daily Prophylaxis:-DVT ppx: Heparin -PUD ppx: Protonix Vascular/ access:Peripheral IV 03/31/24 Anterior;Left Forearm (Active) Peripheral IV 03/31/24 Anterior;Left;Upper Arm (Active) Hemodialysis Cath Triple Lumen 03/29/24 Right Non-tunneled catheter Internal jugular vein (Active) Compliance:Restraints: None Indwelling Guevara Catheter: None Central Venous Access: Needed for HD Arterial Access: None Code Status: Full Disposition: CCU I spent a total of 25 minutes of critical care time with this patient independently, not including procedure time, then plan was discussed with ME PCCM Attending Dr. Jaspal Kennedy, MSN, [facility] [place] #[id number] Division of Pulmonary Critical Care MedicineSouth [facility] / [facility] [place] [facility] [place] [email or web address] Cosigned by Jacky Shay MD at 04/03/2024 4:34 PM WHEEL PRESSER L PRESSER L PRESSER L PRESSER L PRESSER * Juana Holcomb PharmD - 04/03/2024 9:07 AM WHEEL PRESSER Vancomycin Dosing and Monitoring Protocol - Sign-Off Note The Department of Pharmacy will no longer be managing Vancomycin therapy for this patient because: Therapy is being discontinued Thank you for allowing us to participate in the care of this patient. We will sign off for now. Please re-consult if needed. Juana Holcomb PharmD L PRESSER L PRESSER * Reza Perkins MD - 04/03/2024 8:07 AM WHEEL PRESSER ME Nephrology Progress Note Chief Complaint: had concerns including Fall. Nephrology following for: Acute Kidney Injury Assessment & Plan: Elvis Freeman is a 63 y/o F with PMH of DM who presented via EMS after being found unresponsive by family. She was noted to have complete heart block with inferior STEMI now s/p placement of temporary pacer and LHC w/ stent x 1 on 03/27. Nephrology is following for acute renal failure requiring CRRT. Recommendations: - Will plan to initiate HD starting tomorrow - Continue strict I/Os - Infectious work-up and management per CCU and PCCM GUILHERME - Likely ischemic ATN in setting of hemodynamic instability, sepsis, and possible underlying chronic kidney disease - Unknown Cr baseline - Cr 2.77 on admission, peaked at 5.88 on 03/29 - Renal U/S showed bilateral parenchymal disease - Guevara in place, patient remains anuric - On CRRT as of 03/29, aiming for net even initially - CRRT stopped in evening 04/02, reassessing for HD - Cr 1.67 -> 2.20 after stopping CRRT, electrolytes stable Volume status:- Some slight signs of volume overload with congestive hepatopathy, pleural effusions - I/O: net -884cc on 04/02 - Managed with CRRT, goal slightly net negative Electrolytes:- Stable and appropriate - Optimize with PUTTYING [employer]PER[employer] Acid-Base:- Bicarb 20.6 -> 19.1 -> 22.7 -> 20.9 Normocytic anemia:- Hgb 6.8 -> 8.9 post-transfusion 03/28 - Hgb now stable at 9.1 - Anemia workup pending - Ferritin 663 Case discussed w/ attending. Reza Perkins MDAl[facility] 2023 8:07 AM --Subjective: No acute events overnight. CRRT was stopped in evening 04/02. Objective: Vitals:04/03/24 0440 04/03/24 0500 04/03/24 0600 04/03/24 0700 BP: 156/80 138/75 121/71 110/65 Pulse: 98 97 93 91 Resp: 26 19 23 23 Temp: SpO2: 98% 97% 97% 97% Intake/Output Summary (Last 24 hours) at 04/03/2024 0807Last data filed at 04/03/2024 0600 Gross per 24 hour Intake 1011.6 ml Output 1780 ml Net -768.4 ml Physical Exam:Constitutional: Appearance: She is ill-appearing. HENT: Head: Normocephalic and atraumatic. Right Ear: External ear normal. Left Ear: External ear normal. Cardiovascular: Rate and Rhythm: Normal rate and regular rhythm. Pulses: Normal pulses. Heart sounds: Normal heart sounds. Pulmonary: Effort: Pulmonary effort is normal. No respiratory distress. Breath sounds: Normal breath sounds. Abdominal: General: There is no distension. Palpations: Abdomen is soft. Tenderness: There is no abdominal tenderness. Musculoskeletal: General: Normal range of motion. Right lower leg: Edema (trace pitting edema bilaterally) present. Left lower leg: Edema (trace pitting edema bilaterally) present. Skin: General: Skin is warm. Coloration: Skin is not jaundiced. Findings: No bruising. Neurological: General: No focal deficit present. Mental Status: She is oriented to person, place, and time. Dialysis Access: Right IJ Medications:Scheduled: aspirin, 81 mg, Oral, Daily calcium gluconate, 2 g, Intravenous, Once Ensure Enlive, 1 Container, Oral, BID gabapentin, 100 mg, Oral, q8h hydrALAZINE, 25 mg, Oral, q8h insulin glargine, 5 Units, Subcutaneous, q PM lidocaine, 1 patch, Apply externally, Daily meropenem, 500 mg, Intravenous, q8h pantoprazole, 40 mg, Intravenous, q24h DIRK polyethylene glycol (PEG) 3350, 17 g, Oral, Daily sennosides, 2 tablet, Oral, Daily sodium chloride, 500 mL, Intravenous, Once ticagrelor, 90 mg, Oral, q12h DIRK vancomycin, 500 mg, Intravenous, q12h Infusions:heparin, 0.1-40 Units/kg/hr, Last Rate: 19 Units/kg/hr (04/03/24 0711) physiological irrigating solution, 2,500 mL/hr Data: Labs and imaging reviewed. Lab Results Component Value Date BUN 18 04/03/2024 Results from last 7 daysLab Units 04/03/24 0015 04/02/24 1114 04/02/24 0314 CREATININE mg/dL 2.20* 1.67* 1.66* Electrolytes:LYTES - Na/K/Cl/CO2: 132*/4.4/102/20.9 (04/03 001) Lab ResultsComponent Value Date Calcium Lvl 8.1 (L) 04/03/2024 Phosphorus Lvl 2.3 (L) 04/03/2024 Lab ResultsComponent Value Date Hgb 9.1 (L) 04/03/2024 Cosigned by Shashank Pizano MD at 04/03/2024 8:27 PM WHEEL PRESSER L PRESSER L PRESSER Associated attestation - Shashank Pizano MD - 04/03/2024 8:27 PM CST The patient is critically ill with dialysis-dependent ATN in the setting of cardiogenic shock, acute hypoxic respiratory failure and acute metabolic encephalopathy. Will discontinue CRRT and do intermittent dialysis for metabolic clearance and volume management. Will do PUF today for more volume removal I have reviewed the laboratory and radiographic data, discussed the patientwith the Fellow, and agree with the exam, assessment and plan as documented. Total CCT: > 35 minutes, including assessment of serial labs, review of vitals and I/O, review of meds, monitoring/adjusting CRRT prescription, evaluation of the patient, and discussing/coordinating care with the primary team and nurse. Shashank Pizano [facility] Professor Division of Renal Diseases and Hypertension [facility] | [facility] [employer] Contact: [employer] secure chat | [phone] * Madyson Sutton MD - 04/03/2024 7:08 AM WHEEL PRESSER CCU Progress Note Admission Date: 03/27/2024 CCU Day: 7 Problem List Principal Problem: ST elevation myocardial infarction (STEMI) of inferior wall (HCC) Active Problems: Heart block Hyperglycemia due to diabetes mellitus (CMS/HCC) (HCC) On mechanically assisted ventilation (CMS/HCC) (HCC) Fall GUILHERME (acute kidney injury) (HCC) Acute respiratory alkalosis Anemia of chronic disease Toxic metabolic encephalopathy Acute hypoxemic respiratory failure (HCC) Atelectasis Cardiogenic shock (HCC) Severe sepsis (HCC) Shock liver Hyperkalemia Pleural effusion, bilateral Adrenal nodule (HCC) Shock (CMS/HCC) (HCC) Assessment & Plan Ms. Freeman is a 63-year-old female presented by EMS after being found down and unresponsive by family and determined to be in complete heart block, now s/p placement of temporary pacer -- CHB/ECG changes concerning for STEMI - s/p Temp Pacer, [facility] showed 100% RCA occlusion s/p PCI with HARI x1 to mid RCA (via R Fem access). Changes - 04/03/24: - s/p CRRT initation 03/29, stopped ON 04/02 and nephro to reassess in AM for HD needs - Continue vanc, cef - OMFS: no sepsis risk, will need dental care in outpatient setting - Transvenous pacer removed 03/28 - Extubated 03/28 Cardiovascular: #STEMI s/p PCI with HARI to mid RCA (100% RCA occlusion) #CAD #Complete Heart Block # - EP to evaluate for permanent pacemaker - EKG now paced - troponin initially 1846 > 2205 > 8000 -Patient s/p PCI with HARI, currently HDS and extubated 03/28, loaded with Brilinta/Aspirin during procedure - TTE (03/31): EF 60-65%, RV normal systolic fxn, LA mild dilation Plan - Continue ASA 81, Brilinta 90mg daily - Holding Statin for now given elevated LFT's, will resume when resolved - Hydral 25mg q8h Neurology: - Pain control: Tylenol prn - Fall precautions - CT head negative Respiratory: Acute respiratory failure Pulmonary edema - Extubated 03/28 - On 4.5 NC - CXR 04/01 with worsening diffuse opacities - Will pull fluids with CRRT - Aspiration precautions Gastroenterology: #Transaminitis, improving - Likely shock liver- finally down trending 04/01 - Nutrition, heart healthy diet - PUD ppx - BM Plan: -Trend LFT's Renal: #GUILHERME on CKD? - Cr 2.75, unknown baseline - monitor UOP - pt anuric -Cr uptrending, with urine output decreasing - Renal US Bilateral renal parenchymal disease. - nephrology consulted, initated CRRT 03/29 Plan: - Urine Lytes, Urine Protein/Creatinine pending - CRRT stopped ON, nephro to reassess in AM for HD needs - monitor urine output Infectious Disease: #Persistent Fever, concern for Sepsis #Leukocytosis, improving #Lactic acidosis, improved - Afebrile since 03/28 2000 - Lactic acid 5.32 -> 2.34 -> 1.33 - Continue vanc, kimberly - cultures negative to date but patient was taking abx days prior for dental abscess - CT maxillofacial: diffuse periodontal disease, some soft tissue swelling in L vestibular/buccal space but no abscess Hematology: #Anemia - family reports no hx - Hb 8.0 yesterday - Hb 7.1, after PCI - no signs of bleeding - Hb 03/29 6.8 > transfused 1 U pRBC, responded appropriately Plan - CTM - Follow-up Iron studies (send out lab 2-3 days) - Will transfuse to keep Hgb >7.0 Endocrinology: - on home insulin +/- metformin - Goal BS: 140-180 - glucose checks q4 - A1c 10.4 - TSH 0.914 Plan: -Glargine 5u daily -SSI -CTM DVT PPX: Heparin SubQ PUD PPX : Protonix Diet: Heart healthy PT/OT indicated: consulted Lines: Peripheral IV x 2, G tube, Guevara Catheter Guevara: day 1 Code status: FULL Dispo: pending clinical stablility Contact: see separate note for contact info Patient staffed with attending physician, Dr. Gayle. Madyson Sutton MD Internal Medicine | PGY-1 [facility] | [facility] Subjective Overnight, no events/concerns. This morning patient reports breathing better. Objective Vital Signs Current: Visit Vitals BP 110/65 Pulse 91 Temp 37.3 ?C (99.1 ?F) Resp 23 24 Hour: Vitals: 04/03/24 0440 04/03/24 0500 04/03/24 0600 04/03/24 0700 BP: 156/80 138/75 121/71 110/65 Pulse: 98 97 93 91 Resp: 26 19 23 23 Temp: SpO2: 98% 97% 97% 97% Intake/Output: I/O last 3 completed shifts: In: 1599.6 (18.7 mL/kg) [P.O.:300; I.V.:799.6 (9.3 mL/kg); IV Piggyback:400] Out: 3320 (38.7 mL/kg) [Other:3320] Weight: 85.7 kg Intake/Output Summary (Last 24 hours) at 04/03/2024 0708Last data filed at 04/03/2024 0600 Gross per 24 hour Intake 1011.6 ml Output 1970 ml Net -958.4 ml Net intake/output since admission: Net IO Since Admission: -1,000.96 mL[04/03/24 0708] PHYSICAL EXAM General Appearance: no acute distress, no pallorHEENT: Extra ocular movements intact, no scleral icterus, mucous membrane moist, external ears normal Neck: Supple, FROM Lungs: respiratory effort normal, CTA bilaterally, no wheezes/rales/rhonchi Heart: Regular rate and regular rhythm, no murmur Abdomen: soft, non-tender, non-distended MSK/Extremities: pulses 2+. No obvious deformity. Skin: No lesions, no rash. No jaundice. CRRT running at [facility] site Neurologic: AOx3, no focal deficits, speech clear Psych: Mood congruent affect, responds appropriately to questions. SCHEDULED HOSPITAL MEDICATIONSaspirin, 81 mg, Oral, Daily calcium gluconate, 2 g, Intravenous, Once Ensure Enlive, 1 Container, Oral, BID gabapentin, 100 mg, Oral, q8h hydrALAZINE, 25 mg, Oral, q8h insulin glargine, 5 Units, Subcutaneous, q PM lidocaine, 1 patch, Apply externally, Daily meropenem, 500 mg, Intravenous, q8h pantoprazole, 40 mg, Intravenous, q24h DIRK polyethylene glycol (PEG) 3350, 17 g, Oral, Daily sennosides, 2 tablet, Oral, Daily sodium chloride, 500 mL, Intravenous, Once ticagrelor, 90 mg, Oral, q12h DIRK vancomycin, 500 mg, Intravenous, q12h PRN Medications:PRN medications: calcium chloride OR calcium chloride, dextrose, dextrose, glucagon, heparin, insulin lispro, magnesium sulfate OR magnesium sulfate, menthol-zinc oxide, oxyCODONE, potassium & sodium phosphates, potassium chloride OR Potassium chloride, potassium phosphate OR potassium phosphate OR potassium phosphate, [COMPLETED] Insert peripheral IV AND [COMPLETED] Saline lock IV AND sodium chloride, [COMPLETED] Insert peripheral IV AND [COMPLETED] Saline lock IV AND sodium chloride, sodium phosphates 15 mmol in sodium chloride 0.9 % 100 mL IVPB OR sodium phosphates 30 mmol in sodium chloride 0.9 % 100 mL IVPB OR sodium phosphates 45 mmol in sodium chloride 0.9 % 100 mL IVPB, Pharmacy to dose vancomycin AND Vancomycin Pharmacy Dosing Drips: heparin, 0.1-40 Units/kg/hr, Last Rate: 20 Units/kg/hr (04/03/24 0600) physiological irrigating solution, 2,500 mL/hr LABSResults from last 7 days Lab Units 04/03/24 0016 04/02/24 1048 04/02/24313 WBC 10*3/uL 13.97* 14.55* 16.03* HEMOGLOBIN g/dL 9.1* 8.8* 9.1* MCV fL 85.2 85.5 85.6 Results from last 7 daysLab Units 04/03/24 0016 04/02/24 1048 04/02/244 WBC 10*3/uL 13.97* 14.55* 16.03* HEMOGLOBIN g/dL 9.1* 8.8* 9.1* MCV fL 85.2 85.5 85.6 Results from last 7 daysLab Units 04/03/24 0015 04/02/24 1125 04/02/24 1114 04/02/24 0323 04/02/244 04/01/24 19404/01/24 193 POC SODIUM, ARTERIAL mEq/L -- 133* -- < > -- < > -- SODIUM mEq/L 132* -- 134* -- 134* -- 136 POC POTASSIUM, ARTERIAL mEq/L -- 3.8 -- < > -- < > -- POTASSIUM mEq/L 4.4 -- 3.6 -- 4.0 -- 3.5 POC CHLORIDE mEq/L -- 101 -- < > -- < > -- CHLORIDE mEq/L 102 -- 102 -- 104 -- 105 CO2 mEq/L 20.9 -- 22.7 -- 19.1* -- 20.6 BUN mg/dL 18 -- 17 -- 15 -- 17 PHOSPHORUS mg/dL 2.3* -- 2.7 -- -- -- 3.7 < > = values in this interval not displayed. Results from last 7 daysLab Units 04/03/24 0015 04/02/2431304/01/24321 AST U/L 200* 389* 1,398* ALT U/L 1,078* 1,358* 2,115* Results from last 7 daysLab Units 04/03/24 0522 04/03/24 0015 04/02/24 1611 04/02/24 1048 04/02/24313 INR 1.31* 1.21* -- -- 1.42* PROTIME Seconds 16.5* 15.6* -- -- 17.6* PTT Seconds 80.9* 69.9* 59.0* < > 85.4* < > = values in this interval not displayed. No lab exists for component: "APH", "APCO2", "APO2"No lab exists for component: "POCGLU" Microbiology:No results found for the last 90 days. OTHER DATA Radiology Review:CT maxillofacial w IV contrast Result Date: 04/02/2024 EXAM: CT MAXILLOFACIAL WITH CONTRAST DATE: 04/02/2024 13:48 INDICATION: dental abscess . Fever. COMPARISON: None. TECHNIQUE: Volumetric CT of the face following intravenous administration of contrast. Axial, coronal and sagittal images are provided. IV contrast: Refer to MAR/chemistry technologist documentation DLP: Refer to CT protocol form FINDINGS: There is active periodontal disease in the left mandible with periapical lucency and surrounding sclerosis involving the left first molar. There is active periodontal disease in the right maxilla involving the second and third molars and in the left maxilla involving the second and third molars. The left bicuspids have been extracted with recently healing sockets. There is some mild stranding in the left vestibular space and mild thickening of the left buccinator muscle. No discrete fluid collection is identified. Deep soft tissue spaces of the face and neck are unremarkable. The carotid and jugular vessels are patent. There is a dual-lumen catheter in the right jugular vein. The paranasal sinuses and mastoids are clear. Diffuse periodontal disease. Question some associated soft tissue swelling inthe left vestibular/buccal space. No abscess identified. Correlation with clinical exam required. Cosigned by Carla Gayle MD at 04/03/2024 10:12 AM CST L PRESSER L PRESSER L PRESSER Associated attestation - Carla Gayle MD - 04/03/2024 10:12 AM WHEEL PRESSER The patient was seen and examined with the resident. The relevant lab results, imaging and EKGs were personally reviewed, and the medications were reconciled. I agree with above mentioned assessment and plan. Total amount of critical care time spent throughout the day excluding procedural time was - 35 minutes. The patient remain critically ill, and requires ICU level of care. -- Pt with inf STEMI, now s/p RCA PCI, normal BiV function-- Septic shock - ? Dental abscess, on antibiotics, OMFS on board -- GUILHERME - on CRRT, nephrology on board -- Continue GI and DVT prophylaxis per ICU protocol -- Appreciate PCCM input on non-cardiac critical issues Patient Active Problem ListDiagnosis Date Noted ST elevation myocardial infarction (STEMI) of inferior wall ([facility]) 03/28/2024 Heart block 03/27/2024 Hyperglycemia due to diabetes mellitus ([facility]) ([facility]) 03/27/2024 On mechanically assisted ventilation ([facility] ([facility]) 03/27/2024 Fall 03/27/2024 GUILHERME (acute kidney injury) ([facility]) 03/27/2024 Acute respiratory alkalosis 03/27/2024 Anemia of chronic disease 03/27/2024 Toxic metabolic encephalopathy 03/27/2024 Acute hypoxemic respiratory failure ([facility]) 03/27/2024 Atelectasis 03/27/2024 Cardiogenic shock ([facility]) 03/27/2024 Severe sepsis ([facility]) 03/27/2024 Shock liver 03/27/2024 Hyperkalemia 03/27/2024 Pleural effusion, bilateral 03/27/2024 Adrenal nodule ([facility]) 03/27/2024 Shock ([facility] ([facility]) 03/27/2024 * Juana Holcomb, PharmD - 04/02/2024 3:17 PM WHEEL PRESSER Vancomycin Dosing and Monitoring Protocol - Follow-Up Note Consulting Physician: Doug Hale MD Indication for Vancomycin: Bloodstream Infection Goal Trough: 10-20 mcg/mL Vancomycin Start Date: 04/02/2024 Duration: 7 days 63 y.o. female Weight: 85.9 kg (189 lb 6 oz) [place] body weight: 57 kg (125 lb 10.6 oz) Adjusted ideal body weight: 68.5 kg (150 lb 15.5 oz) Lab Results Component Value Date Creatinine Lvl 1.67 (H) 04/02/2024 Creatinine Lvl 1.66 (H) 04/02/2024 Creatinine Lvl 1.68 (H) 04/01/2024 Creatinine Lvl 1.63 (H) 04/01/2024 Creatinine Lvl 1.77 (H) 04/01/2024 Creatinine Lvl 1.95 (H) 03/31/2024 Creatinine Lvl 2.02 (H) 03/31/2024 Lab Results Component Value Date MRSA by PCR Negative 03/28/2024 Laboratory Data and Vancomycin Dosing: Lab Results Component Value Date Vancomycin Lvl 24.2 04/01/2024 Current Antibiotics: Orderered Anti-Infectives Medication Indication(s) Dose Route Frequency Provider Last Admin meropenem (Merrem) 500 mg in sodium chloride 0.9 % 50 mL IVPB-MB+ 500 mg Intravenous q8h Ирина Kennedy NP 500 mg at 04/02/24 1110 vancomycin (Vancocin) 500 mg in sodium chloride 0.9 % 100 mL IVPB-MB+ 500 mg Intravenous q12h Doug Hale MD 500 mg at 04/02/24 0640 Assessment and Plan: - Patient is receiving CRRT. - Patient is currently on vancomycin 500 mg IV every 12 hours. - Plan to draw vancomycin level on 04/03 at 0530. Thank you for allowing us to participate in the care of this patient. We will continue to monitor and adjust vancomycin therapy as needed. L PRESSER * Alyson Gary, PT - 04/02/2024 2:34 PM WHEEL PRESSER Evaluation and Treatment Note Patient Name: Elvis Freeman Today's Date: 04/02/2024 Preferred Language: [place] Assessment & Plan Pt is a 63-year-old female presented by EMS after being found down and unresponsive by family and determined to be in complete heart block, now s/p placement of temporary pacer -- CHB/ECG changes concerning for STEMI - s/p Temp Pacer, [facility] showed 100% RCA occlusion s/p PCI with HARI x1 to mid RCA (via R Fem access) on 03/27. She was extubated on 03/28. Remains on CRRT and presents for PT evaluation. Assessment: Prognosis: Excellent Evaluation/Treatment Tolerance: Patient tolerated treatment well Pt able to stand and initiate pre-gait training today, tolerating well. PT will cont to work with pt to maximize her independence with functional mobility. She has good family support and is eager to regain her independence. Plan: Treatment Plan/Goals Established with Patient/Caregiver: Yes Treatment/Interventions: Balance training, Bed mobility training, Gait training, Functional activities, Patient education, Therapeutic exercises PT Plan: Skilled PT PT Frequency: 3-4 times per week until discharge PT Discharge Recommendations: Home health PT Therapy discharge recommendations are made by determining the patient's prior level of function, assessing current function level and establishing rehab potential. The overall discharge plan may be affected by input from Physicians, Care Coordination, medical condition/status, family support and insurance benefits. Subjective Pt agreeable to working with PT. No c/o pain Home Living: Type of Home: House Lives With: Spouse, Son Home Adaptive Equipment: Walker rolling or standard Home Layout: One level Home Access: Stairs to enter without rails Prior Level of Function: Level of [place]: Other (Comment) (Pt was fully independent) Objective General Visit Information: Others Present: son present Pt found supine in bed. Evaluation completed. She came to sitting on EOB and dangled for several minutes to acclimate. She stood for several minutes with stable hemodynamics. Marched in place for 30". Pt sat back on EOB and returned to supine. RN aware of pt's status. Precautions: Medical Precautions: standard Cognition: Overall Cognitive Status: Within Functional Limits Behavior/Cognition: Cooperative Orientation Level: Oriented X4 General Assessments: Activity Tolerance Activity Tolerance Endurance: Tolerates less than 10 min exercise, no significant change in vital signs Sensation Sensation Light Touch: (reports mildly decreased sensation due to neuropathy) Coordination Coordination Movements are Fluid and Coordinated: Yes Balance- Sitting Level of Assistance: Independent Functional Assessments:Bed Mobility Bed Mobility 1: Level of Assistance 1: Partial/Mod assistance (Min A) Bed Mobility To/From: Supine to sit on EOB Transfers Transfers 1:Level of Assistance 1: Partial/Mod assistance (Min A) Transfer To/From: [id number] Extremity Assessments:RLE Assessment RLE Assessment: Within Functional Limits LLE AssessmentLLE Assessment: Within Functional Limits Activity Tolerance:Endurance: Tolerates less than 10 min exercise, no significant change in vital signs CognitionOverall Cognitive Status: Within Functional Limits Behavior/Cognition: Cooperative Orientation Level: Oriented X4 TreatmentTherapeutic activity: Therapeutic Activity Therapeutic Activity Time Entry: 10 Therapeutic Activity 1: marching in place, EOB and standing activity tolerance AM-PAC Basic Mobility: Static standing (1 or more minutes) Patient Education:Education Documentation Home Therapy Program, taught by Alyson Gary PT at 04/02/2024 2:34 PM. Learner: Patient Readiness: Acceptance Method: Explanation Response: Verbalizes Understanding Education CommentsNo comments found. Goal:Encounter Goals Encounter Goals (Active) Patient will perform grooming with mod I standing at sink. Start: 04/02/24 Expected End: 05/02/24 Pt will perform >8 min of OOB ADL routine with no rest breaks to improve overall activity tolerance. Start: 04/02/24 Expected End: 05/02/24 Pt will be mod I with bed mobility Start: 04/02/24 Expected End: 04/26/24 Pt will amb 400' mod I Start: 04/02/24 Expected End: 04/26/24 Within 2 weeks of starting therapy, the patient and/or family/caregiver will demonstrate independence and be compliant in a written HEP in order to maximize gains made during therapy. Start: 04/02/24 Expected End: 05/02/24 Pt will be mod I with all transfers Start: 04/02/24 Expected End: 04/26/24 Treatment Note: If this is the last documented treatment, then it will signify discharge from acute care prior to discharge from the therapy service and will serve as the discharge summary. Alyson Gary PT L PRESSER * Vijay Kurtz RN - 04/02/2024 12:29 PM WHEEL PRESSER CASE MANAGEMENT ROUTINE DISCHARGE PLAN NOTE LOS: 6 Barriers to Discharge: CT pending , OMFS recs. CRRT, DISCHARGE PLAN A: Home DISCHARGE PLAN B: Home health TISH: 3-5 days L PRESSER * Jacky Shay MD - 04/02/2024 11:20 AM WHEEL PRESSER [facility] ICU Note This patient was seen with FISH PROCESSING SUPERVISOR Brent and Dr. Verdugo and bedside RN as part of a multidisciplinary team. Briefly this is a 63 y/o female who presented after a fall due to CHB related to inferior STEMI. 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 -HFmrEF - LVEF 60-65% with preserved RV function; significant MAC with mild MS -elevated liver enzymes - suspect related to low flow state and hypotension -possible sepsis -delirium -type 2 DM with hyperglycemia (A1c of ~10) -anemia - likely nutritional and chronic disease with some component of blood loss acutely -restless leg syndrome -history of fall -history of cholecystectomy -history of adrenal nodule Daily Plan -EMR documentation suggestive C-spine precautions; recommend consultation to trauma surgery for C-spine clearance -currently on DAPT; statin on hold (due to liver injury) -continue to monitor for bradyarrythmias -given elevated troponin plans for repeat cardiac catheterization pending per CCU -continue to monitor respiratory status -continue to monitor LFTs which are improving -continued on CRRT -continue basal insulin (currently 5 units) and SSI -continue broadened antibiotics; follow-up maxillofacial CT given prior history of tooth infection to rule out odontogenic abscess ICU Quality Review -ICU day: 6 days -mechanically ventilated: no -restraints indicated: no -PT/OT: ordered -DVT prophylaxis: chemical prophylaxis -GI prophylaxis: yes -central Lines: RIJ dialysis line -arterial Lines: none -devices: CRRT -guevara: no -tubes/drains: none -pressure injury: none I spent a total of 35 minutes caring for this patient including reviewing the patients chart, obtaining relevant history from the patient, performing a physical examination, interpreting date and coordinating care with consultants. This is exclusive to any procedures or teaching. Vitals: Visit Vitals BP 150/65 Pulse 86 Temp 37.1 ?C (98.8 ?F) Resp 21 Ht 1.651 m (5' 5") Wt 85.7 kg (188 lb 15 oz) SpO2 96% BMI 31.44 kg/m? Smoking Status Unknown BSA 1.98 m? Tube/Drain Output: Output by Drain (mL) 03/31/24 07 - 03/31/24 1859 03/31/24 1900 - 04/01/24 0659 04/01/24 07 - 04/01/24 1859 04/01/24 1900 - 04/02/24 0659 04/02/24 0700 - 04/02/24 1120 Patient has no LDAs of requested type attached. Labs: Last ABG Results from last 7 days Lab Units 04/02/24 0323 04/01/24 1941 04/01/24 1820 POC PH, ARTERIAL 7.42 7.43 7.43 POC PCO2, ARTERIAL mmHg 34* 31* 31* POC PO2, ARTERIAL mmHg 91 137 72* POC HCO3, ARTERIAL mMol/L 22 21* 21* POC SO2, ARTERIAL (CALC) % 97.2 99.2 94.7* POC SO2, ARTERIAL % 98.0 98.8 96.0 POC BASE EXCESS, ARTERIAL mMol/L -2 -3* -3* Last CBC ResultLast Lab Result Automated Differential Collection Time: 04/02/24 3:14 AM Result Value Ref Range Segs % 73.8 (H) 40.9 - 70.4 % Lymphs % 10.2 (L) 15.3 - 46.4 % Monos % 10.3 3.9 - 10.9 % Eos % 0.9 0.3 - 4.1 % Basos % 0.4 0.2 - 1.3 % Immature Grans % 4.4 (H) 0.1 - 1.0 % Segs # 11.81 (H) 2.03 - 7.09 10*3/uL Lymphs # 1.64 1.09 - 3.65 10*3/uL Monos # 1.65 (H) 0.27 - 0.78 10*3/uL Eos # 0.15 0.02 - 0.33 10*3/uL Basos # 0.07 0.01 - 0.09 10*3/uL Imm Grans # 0.71 (H) 0.01 - 0.07 10*3/uL Complete Blood Count Collection Time: 04/02/24 3:14 AM Result Value Ref Range WBC 16.03 (H) 4.15 - 10.55 10*3/uL RBC 3.41 (L) 3.74 - 5.22 10*6/uL NRBC % 2.6 (H) 0 /100 WBC Hgb 9.1 (L) 10.8 - 14.8 g/dL Hct 29.2 (L) 33.9 - 45.4 % MCV 85.6 77.8 - 97.5 fL MCH 26.7 24.9 - 32.6 pg MCHC 31.2 30.1 - 35.0 g/dL RDW - SD 48.1 37.6 - 49.1 fL Plt Count 228 191 - 422 10*3/uL MPV 12.5 9.0 - 12.6 fL Last BMP or CMP ResultLast Lab Result Basic Metabolic Panel Collection Time: 04/01/24 7:33 PM Result Value Ref Range Glucose Lvl 123 (H) 70 - 99 mg/dL BUN 17 9 - 23 mg/dL Creatinine Lvl 1.68 (H) 0.55 - 1.02 mg/dL Sodium Lvl 136 136 - 145 mEq/L Potassium Lvl 3.5 3.4 - 4.5 mEq/L Chloride Lvl 105 98 - 107 mEq/L CO2 Lvl 20.6 20.0 - 31.0 mEq/L Anion Gap 13.9 10.0 - 20.0 mEq/L Calcium Lvl 8.2 (L) 8.3 - 10.6 mg/dL eGFR 34 (L) >60 mL/min/1.73m2 Culture ResultsNo results found for the last 90 days. Bowel Movements:No data recorded Ventilator Settings Active Medications heparin, 0.1-40 Units/kg/hr, Last Rate: 18 Units/kg/hr (04/02/24 3926) physiological irrigating solution, 2,500 mL/hr aspirin, 81 mg, Oral, Dailycalcium gluconate, 2 g, Intravenous, Once gabapentin, 100 mg, Oral, q8h hydrALAZINE, 50 mg, Oral, Daily insulin glargine, 5 Units, Subcutaneous, q PM lidocaine, 1 patch, Apply externally, Daily meropenem, 500 mg, Intravenous, q8h pantoprazole, 40 mg, Intravenous, q24h DIRK sodium chloride, 500 mL, Intravenous, Once ticagrelor, 90 mg, Oral, q12h DIRK vancomycin, 500 mg, Intravenous, q12h L PRESSER * Ирина Kennedy NP - 04/02/2024 10:43 AM WHEEL PRESSER Hospital Course: Elvis Freeman ( 1960) is a 64 year old female who was brought in by EMS after being found down and unresponsive by family and determined to be in complete heart block with Inferior STEMI, now s/p placement of temporary pacer and intubated for airway protection. LHC revealed 100% occlusion of mid RCA, s/p stent x 1 on 03/27 Interval events: CRRT continues. Net -630 ml Hypertensive overnight. Albert to the 40's then A fib rate controlled. Off pressors Review of Systems All other systems reviewed and are negative. Physical Exam: Constitutional: General: She is not in acute distress. Appearance: Normal appearance. Cardiovascular: Rate and Rhythm: Normal rate. Rhythm irregular. Pulses: Normal pulses. Pulmonary: Effort: Pulmonary effort is normal. No respiratory distress. Breath sounds: Normal breath sounds. Abdominal: General: Bowel sounds are normal. There is no distension. Palpations: Abdomen is soft. Tenderness: There is no abdominal tenderness. Skin: General: Skin is warm and dry. Capillary Refill: Capillary refill takes less than 2 seconds. Neurological: General: No focal deficit present. Mental Status: She is alert and oriented to person, place, and time. Mental status is at baseline. BP 125/73 | Pulse 96 | Temp 37.3 ?C (99.1 ?F) | Resp (!) 27 | Ht 1.651 m (5'5") | Wt 85.7 kg (188 lb 15 oz) | SpO2 96% | BMI 31.44 kg/m? aspirin, 81 mg, Oral, Dailycalcium gluconate, 2 g, Intravenous, Once Ensure Enlive, 1 Container, Oral, BID gabapentin, 100 mg, Oral, q8h hydrALAZINE, 25 mg, Oral, q8h insulin glargine, 5 Units, Subcutaneous, q PM lidocaine, 1 patch, Apply externally, Daily meropenem, 500 mg, Intravenous, q8h pantoprazole, 40 mg, Intravenous, q24h DIRK polyethylene glycol (PEG) 3350, 17 g, Oral, Daily sennosides, 2 tablet, Oral, Daily sodium chloride, 500 mL, Intravenous, Once ticagrelor, 90 mg, Oral, q12h DIRK heparin, 0.1-40 Units/kg/hr, Last Rate: 19 Units/kg/hr (04/03/24 0711) physiological irrigating solution, 2,500 mL/hr Encounter Date: 03/27/24XR chest 1 view Narrative EXAM: XR CHEST 1 VIEW DATE: 04/01/2024 8:05 INDICATION: dyspnea . TECHNIQUE: Chest 1 view FINDINGS: Comparison is made to March 31. ImpressionCardiomediastinal silhouette is unchanged. A right jugular CVC remains in place. There are increasing bilateral infrahilar airspace opacities that could be dueto atelectasis, aspiration or pneumonia. No pleural effusions. Transthoracic echo (TTE) complete Result Date: 03/31/2024 Left Ventricle: Left ventricle is smaller than normal. Normal wall thickness in the left ventricle. Left ventricular mass is normal. Normal systolic function with an estimated EF of 60 - 65%. Global longitudinal strain is normal. LV GLS is -18.3%. Unable to assess diastolic function in the left ventricle due to mitral annular calcification. Right Ventricle: Right ventricle size is normal. Normal systolic function in the right ventricle. Left Atrium: Left atrium is mildly dilated. Aortic Valve: Aortic valve is trileaflet. Mildly thickened leaflets in the aortic valve. Mildly calcified leaflets in the aortic valve. Mitral Valve: No leaflet thickening in the mitral valve. No leaflet calcification in the mitral valve. Severe posterior mitral annular calcification. Mild mitral regurgitation present. Mild mitral stenosis present. Mean transmitral gradient 7 mmHg at HR 85 bpm Tricuspid Valve: Mild tricuspid regurgitation present. RVSP is 41.00 mmHg. Mild pulmonary hypertension present. RVSP is 41.00 mmHg. Aorta: Normal sized sinus of Valsalva present. Pericardium: No pericardial effusion present. Transthoracic echo (TTE) limitedResult Date: 03/31/2024 Left Ventricle: Left ventricle size is normal. Septal thickening in the left ventricle. Left ventricular regional wall motion abnormalities present. See diagram for wall motion findings. Normal systolic function with an estimated EF of 55 - 60%. Right Ventricle: Right ventricle size is normal. Mildly reduced systolic function in the right ventricle. Aortic Valve: Trileaflet aortic valve sclerosis is present. Mildly thickened leaflets in the aortic valve. Mitral Valve: Moderate posterior mitral annular calcification. Tricuspid Valve: Mild tricuspid regurgitation present. Pulmonary hypertension is not present. Pericardium: No pericardial effusion present. Overall normal LV function, though with inferior/posterior and inferoseptal WMA as noted above; remaining rai appear hyperdynamic. Mildly reduced RV function. Transthoracic echo (TTE) completeResult Date: 03/28/2024 Left ventricle is normal in size with mildly reduced global systolic function and an estimated ejection fraction of 45-50%, by the method of discs. Diastolic function is indeterminate. Right ventricle is normal in size and systolic function. Left atrium appears normal in size. Right atrium is normal in size Aortic valve is trileaflet and sclerotic with normal function. There is mild mitral valve stenosis and a heavily calcified annulus. The transvalvular mean gradient is 4 mmHg, at a HR of 90 bpm. and the MV area by continuity eq is 1.5 cm2.No significant mitral valve regurgitation is observed. Tricuspid valve leaflets are normal. There is trace tricuspid regurgitation. Unable to estimate right ventricular systolic pressure due to an insufficient TR jet. Pulmonic valve appears normal in structure with trace regurgitation. Aortic root is normal in diameter. Inferior vena cava is normal in diameter with >50% respiratory variation in size. No pericardial effusion is seen. No prior study is currently available for comparison. Principal Problem: ST elevation myocardial infarction (STEMI) of inferior wall ([facility]) Active Problems: Heart block Hyperglycemia due to diabetes mellitus (CMS/HCC) ([facility]) On mechanically assisted ventilation (CMS/HCC) ([facility]) Fall GUILHERME (acute kidney injury) ([facility]) Acute respiratory alkalosis Anemia of chronic disease Toxic metabolic encephalopathy Acute hypoxemic respiratory failure ([facility]) Atelectasis Cardiogenic shock ([facility]) Severe sepsis ([facility]) Shock liver Hyperkalemia Pleural effusion, bilateral Adrenal nodule ([facility]) Shock (CMS/HCC) ([facility]) Plan: Neuro/Psych:-Mentation intact -Continue gabapentin (renally dosed) for neuropathy -CT brain showing no acute abnormality. CT cervical spine also showing no fracture or traumatic malalignment -CT maxillofacial pending. Consult dental if abscess is appreciated. Currently pending read -Pain control with Tylenol PRN and daily lidocaine patch -Continue delirium precautions and adherence to sleep-wake cycle. CV:-s/p temp pacer 03/27 and LHC with PCI x 1 to RCA on 03/27. Subsequent removal of temp pacer and patient redeveloped 2nd and 3rd degree heart block. Transcutaneous pacer pads, dopamine, and atropine all at bedside but currently patient is asymptomatic. EP following. -Continue aspirin and Brilinta. Statin held owing to elevated LFTs -Hydralazine started for elevated blood pressure -A-fib, continue heparin drip -ECHO showing EF 45%, normal RV size and systolic function -RUE US negative for DVT Resp:-Supplemental O2 via nasal cannula. -CT chest showing no acute abnormalities with trace pleural effusions, atelectasis -Duonebs prn -Continue volume expansion protocol and incentive spirometry GI/Nutrition: -Heart diet with Ensure supplementation -Protonix ppx -Continue bowel regimen and titrate for 1-2 BMs daily -CT abdomen and pelvis showing no acute traumatic abnormalities and heterogeneous left adrenal nodule measuring 3.2 cm -Elevated LFTs likely 2/2 ischemia from CHB or ischemia. Trend Renal/Electrolytes:-GUILHERME could be 2/2 ischemia in the setting of CHB. Renal US shows chronic parenchymal disease. Nephrology following -CRRT continues. Recommend transition to HD -Monitor UOP with strict I's/O's -Trend BUN/Cr -Avoid nephrotoxic agents -Replace electrolytes as needed Endo: -Hgb A1c 10.4 -Continue strict glycemic control with Glargine 5 units daily and medium dose sliding scale insulin to keep blood glucose 100-180 -Would recommend endocrine consult Heme/Onc:-Monitor for bleeding and coagulopathies -Maintain Hgb > 7 and Platelets > 10k ID: -Continues on empiric Merrem day 5 of 7 -Procal elevated. Cultures negative to date -MRSA nares, strep pna, and legionella all negative -Respiratory culture negative to date -Prior to Merrem received 2 days of Cefepime, and 5 days of Vancomycin -CT maxillofacial shows diffuse peridental disease but no abscess, follow-up outpatient per dentistry Musculoskeletal/Skin: -Continue wound care and sacral decubitus prevention -PT/OT and out of be to chair daily Prophylaxis:-DVT ppx: Heparin -PUD ppx: Protonix Vascular/ access:Peripheral IV 03/31/24 Anterior;Left Forearm (Active) Peripheral IV 11/02/24 Anterior;Left;Upper Arm (Active) Hemodialysis Cath Triple Lumen 03/29/24 Right Non-tunneled catheter Internal jugular vein (Active) Compliance:Restraints: None Indwelling Guevara Catheter: None Central Venous Access: Needed for HD Arterial Access: None Code Status: Full Disposition: CCU I spent a total of 25 minutes of critical care time with this patient independently, not including procedure time, then plan was discussed with [facility] Attending Dr. Jaspal Kennedy, MSN, [id number] Division of Pulmonary Critical Care [facility] [email or web address] L PRESSER * Shakira Hayes, JENNYFER - 04/02/2024 9:08 AM WHEEL PRESSER Evaluation and Treatment Patient Name: Elvis Freeman Today's Date: 04/02/2024 Preferred Language: [place] Assessment & Plan Assessment: Pt reports at baseline, she is independent and lives in a H with her and a son. Pt today presents below baseline; performs overall mobility with min A and overall ADLs with dep assist (LBD). Pt with overall dizziness and fatigue but with good participation in session. Pt demo's decreased activity tolerance, decreased balance and decreased strength. Pt will benefit from skilled OT services to address deficits and maximize independence. OT Assessment Results: Impaired ADL status, Impaired endurance, Impaired upper extremity strength, Impaired functional mobility Prognosis: Good Barriers to Discharge: Complicated medical history Evaluation/Treatment Tolerance: Patient tolerated treatment well Medical Staff Made Aware: Yes Strengths: Ability to acquire knowledge, Attitude of self, Coping skills, Support of extended family/friends, Support and attitude of living partners Plan: Treatment Plan/Goals Established with Patient/Caregiver: Yes Treatment Interventions: ADL retraining, Endurance training, Functional transfer training, Patient/family training, UE strengthening/ROM OT Plan: Skilled OT OT Frequency: 3-5 times per week OT Discharge Recommendations: Home Health OT OT Planned Treatments: Activities of Daily Living, Caregiver training, Balance training, Energy conservation training, Home program, Mobility training, Therapeutic exercises, Therapeutic activities Therapy discharge recommendations are made by determining the patient's prior level of function, assessing current function level and establishing rehab potential. The overall discharge plan may be affected by input from Physicians, Care Coordination, medical condition/status, family support and insurance benefits. Subjective Pt agreeable to OT evaluation Current Problem: Ms. Freeman is a 63-year-old female presented by EMS after being found down and unresponsive by family and determined to be in complete heart block, now s/p placement of temporary pacer -- CHB/ECG changes concerning for STEMI - s/p Temp Pacer, C showed 100% RCA occlusion s/p PCI with HARI x1 to mid RCA (via R Fem access). Pain: Pt reports no pain today Objective Pt found semi-reddy in bed and agreeable to OT evaluation; son present; JULIO Brown clears pt for mobility. Pt with CRRT; Kevin requesting pt return to bed at end of session. Pt on 5 L O2. Pt performs sup>sit with min A and sits EOB with overall CGA; pt reporting minor dizziness but improves with time. Pt performs LBD with dep assist to don socks. Pt performs sit>Stand with min A and takes ~[address] Pt takes side steps x5 towards HOB with min A and OBSTETRICAL ANESTHESIOLOGIST. Pt fatigues; sits and returns to supine with min A. Pt left in bed with all needs met, son present, VSS. Vital Signs: VSS General Visit Information: Others Present: Son present Cognition: Orientation Level: Oriented X4 Home Living: Type of Home: House Lives With: Spouse, Son Home Adaptive Equipment: Walker rolling or standard, Other (Comment) (roll) Home Layout: One level Home Access: Stairs to enter without rails Bathroom Shower/Tub: Tub/shower unit Prior Function: Level of [place]: Other (Comment) ([place]) Receives Help From: Family ADL Assistance: Independent Self Care (ADL): LE Dressing Assistance: Dependent LE Dressing Deficit: Don/doff R sock, Don/doff L sock Mobility/Transfers: Bed Mobility Bed Mobility Bed Mobility: Yes Bed Mobility 1 Level of Assistance 1: Partial/Mod assistance (min A) Bed Mobility To/From: Supine to sit on EOB Assistive Devices And Adaptive Equipments: Bed rail Transfer Transfers Transfer: Yes Transfer 1 Level of Assistance 1: Partial/Mod assistance (min A) Transfer To/From: Bed, [id number] Functional Mobility Functional Mobility Functional Mobility: (Pt takes side steps x5 towards L with min A and OBSTETRICAL ANESTHESIOLOGIST x2) OT General Assessments: Activity Tolerance Endurance: F- 5*9 min w/o rest period with above s/s Sitting Balance: Supervision/touching assistance (CGA) Extremity Assessments: RUE Assessment RUE Assessment: (Overall 3+5) LUE Assessment LUE Assessment: (Overal 3+/5) Treatment: Self-Care: LE Dressing Assistance: Dependent LE Dressing Deficit: Don/doff R sock, Don/doff L sock AM-PAC Daily Activity: Putting on and taking off regular lower body clothing: A Lot Bathing (including washing, rinsing, drying): A Lot Toileting, which includes using toilet, bedpan or urinal: A Lot Putting on and taking off regular upper body clothing: A Little Taking care of personal grooming such as brushing teeth: None Eating Meals: None AM-PAC Daily Activity Raw Score: 17 Mobility Highest Level of Mobility Performed (JH-HLM): Static standing (1 or more minutes) Patient Education: Education Documentation Mobility Training, taught by Shakira Hayes OT at 04/02/2024 12:24 PM. Learner: Family, Patient Readiness: Acceptance Method: Explanation Response: Verbalizes Understanding ADL Training, taught by Shakira Hayes OT at 04/02/2024 12:24 PM. Learner: Family, Patient Readiness: Acceptance Method: Explanation Response: Verbalizes Understanding Occupational Therapy Plan of Care, taught by Shakira Hayes OT at 04/02/2024 12:24 PM. Learner: Family, Patient Readiness: Acceptance Method: Explanation Response: Verbalizes Understanding Education Comments No comments found. Goals: Encounter Goals Encounter Goals (Active) Patient will perform grooming with mod I standing at sink. Start: 04/02/24 Expected End: 05/02/24 Patient will perform lower body dressing with mod I using assistive device if needed in 3/3 trials. Start: 04/02/24 Expected End: 05/02/24 Patient will perform toilet transfer with mod I using LRAD. Start: 04/02/24 Expected End: 05/02/24 Patient will perform toileting with mod I in 3/3 trials. Start: 04/02/24 Expected End: 05/02/24 Pt will perform >8 min of OOB ADL routine with no rest breaks to improve overall activity tolerance. Start: 04/02/24 Expected End: 05/02/24 Within 2 weeks of starting therapy, the patient and/or family/caregiver will demonstrate independence and be compliant in a written HEP in order to maximize gains made during therapy. Start: 04/02/24 Expected End: 05/02/24 Treatment Note: If this is the last documented treatment, then it will signify discharge from acute care prior to discharge from the therapy service and will serve as the discharge summary. Shakira Hayes, JENNYFER L PRESSER L PRESSER * Reza Perkins MD - 04/02/2024 8:24 AM WHEEL PRESSER ME Nephrology Progress Note Chief Complaint: had concerns including Fall. Nephrology following for: Acute Kidney Injury Assessment & Plan: Elvis Freeman is a 63 y/o F with PMH of DM who presented via EMS after being found unresponsive by family. She was noted to have complete heart block with inferior STEMI now s/p placement of temporary pacer and LHC w/ stent x 1 on 03/27. Nephrology is following for acute renal failure requiring CRRT. Recommendations: - Will stop CRRT tonight and reassess in morning for HD needs - Continue strict I/Os - Infectious work-up and management per CCU and PCCM GUILHERME - Likely ischemic ATN in setting of hemodynamic instability, sepsis, and possible underlying chronic kidney disease - Unknown Cr baseline - Cr 2.77 on admission, peaked at 5.88 on 03/29 - Renal U/S showed bilateral parenchymal disease - Guevara in place, patient remains anuric - On CRRT as of 03/29, aiming for net even initially Volume status:- Some slight signs of volume overload with congestive hepatopathy, pleural effusions - I/O: net -840cc on 04/01 - Managed with CRRT, goal slightly net negative Electrolytes:- Stable and appropriate - Optimize with PUTTYING AND CALKING SUPERVISOR Acid-Base:- Bicarb 20.6 -> 19.1 Normocytic anemia:- Hgb 6.8 -> 8.9 post-transfusion 03/28 - Hgb now stable at 9.1 - Anemia workup pending - Ferritin 663 Case discussed w/ attending. [facility] 8:24 AM --Subjective: No acute events overnight. Objective: Vitals:04/02/24 0615 04/02/24 0630 04/02/24 0645 04/02/24 0700 BP: Pulse: 89 92 92 92 Resp: 25 25 23 26 Temp: SpO2: 98% 98% 98% 97% Intake/Output Summary (Last 24 hours) at 04/02/2024 0824Last data filed at 04/02/2024 0640 Gross per 24 hour Intake 1121.98 ml Output 2040 ml Net -918.02 ml Physical Exam:Constitutional: Appearance: She is ill-appearing. HENT: Head: Normocephalic and atraumatic. Right Ear: External ear normal. Left Ear: External ear normal. Cardiovascular: Rate and Rhythm: Normal rate and regular rhythm. Pulses: Normal pulses. Heart sounds: Normal heart sounds. Pulmonary: Effort: Pulmonary effort is normal. No respiratory distress. Breath sounds: Normal breath sounds. Abdominal: General: There is no distension. Palpations: Abdomen is soft. Tenderness: There is no abdominal tenderness. Musculoskeletal: General: Normal range of motion. Right lower leg: Edema (trace pitting edema bilaterally) present. Left lower leg: Edema (trace pitting edema bilaterally) present. Skin: General: Skin is warm. Coloration: Skin is not jaundiced. Findings: No bruising. Neurological: General: No focal deficit present. Mental Status: She is oriented to person, place, and time. Dialysis Access: Right IJ Medications:Scheduled: aspirin, 81 mg, Oral, Daily calcium gluconate, 2 g, Intravenous, Once gabapentin, 100 mg, Oral, q8h hydrALAZINE, 50 mg, Oral, Daily insulin glargine, 5 Units, Subcutaneous, q PM lidocaine, 1 patch, Apply externally, Daily meropenem, 500 mg, Intravenous, q8h pantoprazole, 40 mg, Intravenous, q24h DIRK sodium chloride, 500 mL, Intravenous, Once ticagrelor, 90 mg, Oral, q12h DIRK vancomycin, 500 mg, Intravenous, q12h Infusions:heparin, 0.1-40 Units/kg/hr, Last Rate: 18 Units/kg/hr (04/02/24 0446) norepinephrine, 2-70 mcg/min, Last Rate: Stopped (04/01/24 1900) physiological irrigating solution, 2,500 mL/hr Data: Labs and imaging reviewed. Lab Results Component Value Date BUN 15 04/02/2024 Results from last 7 daysLab Units 04/02/24 0314 04/01/24 1933 04/01/24 1140 CREATININE mg/dL 1.66* 1.68* 1.63* Electrolytes:LYTES - Na/K/Cl/CO2: 134*/4.0/104/19.1* (04/02 314) Lab ResultsComponent Value Date Calcium Lvl 8.4 04/02/2024 Phosphorus Lvl 3.7 04/01/2024 Lab ResultsComponent Value Date Hgb 9.1 (L) 04/02/2024 Cosigned by Shashank Pizano MD at 04/02/2024 10:04 PM WHEEL PRESSER L PRESSER L PRESSER Associated attestation - Shashank Pizano MD - 04/02/2024 10:04 PM CST The patient is critically ill with dialysis-dependent ATN in the setting of cardiogenic shock, acute hypoxic respiratory failure and acute metabolic encephalopathy. Continue CRRT for metabolic clearance and volume management. I have reviewed the laboratory and radiographic data, discussed the patientwith the Fellow, and agree with the exam, assessment and plan as documented. Total CCT: > 35 minutes, including assessment of serial labs, review of vitals and I/O, review of meds, monitoring/adjusting CRRT prescription, evaluation of the patient, and discussing/coordinating care with the primary team and nurse. Merrill Hatfield Professor Division of Renal Diseases and Hypertension [facility] | [facility] Contact: Epic secure chat | [phone] * Madyson Sutton MD - 04/02/2024 6:35 AM WHEEL PRESSER CCU Progress Note Admission Date: 03/27/2024 CCU Day: 6 Problem List Principal Problem: ST elevation myocardial infarction (STEMI) of inferior wall (HCC) Active Problems: Heart block Hyperglycemia due to diabetes mellitus (CMS/HCC) (HCC) On mechanically assisted ventilation (CMS/HCC) (HCC) Fall GUILHERME (acute kidney injury) (HCC) Acute respiratory alkalosis Anemia of chronic disease Toxic metabolic encephalopathy Acute hypoxemic respiratory failure (HCC) Atelectasis Cardiogenic shock (HCC) Severe sepsis (HCC) Shock liver Hyperkalemia Pleural effusion, bilateral Adrenal nodule (HCC) Shock (CMS/HCC) (HCC) Assessment & Plan Ms. Freeman is a 63-year-old female presented by EMS after being found down and unresponsive by family and determined to be in complete heart block, now s/p placement of temporary pacer -- CHB/ECG changes concerning for STEMI - s/p Temp Pacer, [facility] showed 100% RCA occlusion s/p PCI with HARI x1 to mid RCA (via R Fem access). Changes - 04/02/24: - s/p CRRT initation 03/29, set for net negative 04/01 - Continue vanc, cef - still pending CT maxillofacial to evaluate for dental abscess - Transvenous pacer removed 03/28 - Extubated 03/28 Cardiovascular: #STEMI s/p PCI with HARI to mid RCA (100% RCA occlusion) #CAD #Complete Heart Block - EP to evaluate for permanent pacemaker - EKG now paced - troponin initially 1846 > 2205 > 8000 -Patient s/p PCI with HARI, currently HDS and extubated 03/28, loaded with Brilinta/Aspirin during procedure - TTE (03/31): EF 60-65%, RV normal systolic fxn, LA mild dilation Plan - Continue ASA 81, Brilinta 90mg daily - Holding Statin for now given elevated LFT's, will resume when resolved - Cont to trend trop Neurology: - Pain control: Tylenol prn - Fall precautions - CT head negative Respiratory: Acute respiratory failure Pulmonary edema - Extubated 03/28 - On 4.5 NC - CXR 04/01 with worsening diffuse opacities - Will pull fluids with CRRT - Aspiration precautions Gastroenterology: #Transaminitis - Likely shock liver- finally down trending 04/01 - Nutrition, heart healthy diet - PUD ppx - BM Plan: -Trend LFT's Renal: #GUILHERME on CKD? - Cr 2.75, unknown baseline - monitor UOP - pt anuric -Cr uptrending, with urine output decreasing - Renal US Bilateral renal parenchymal disease. - nephrology consulted, initated CRRT 03/29 Plan: - Urine Lytes, Urine Protein/Creatinine pending - CRRT per nephrology, now set to net negative to pull fluids - monitor urine output Infectious Disease: #Persistent Fever, concern for Sepsis #Leukocytosis, improving #Lactic acidosis, improved - Afebrile since 03/28 2000 - Lactic acid 5.32 -> 2.34 -> 1.33 - Continue vanc, kimberly - cultures negative to date but patient was taking abx days prior for dental abscess - CT maxillofacial to evaluate for dental abscess Hematology: #Anemia - family reports no hx - Hb 8.0 yesterday - Hb 7.1, after PCI - no signs of bleeding - Hb 03/29 6.8 > transfused 1 U pRBC, responded appropriately Plan - CTM - Follow-up Iron studies (send out lab 2-3 days) - Will transfuse to keep Hgb >7.0 Endocrinology: - on home insulin +/- metformin - Goal BS: 140-180 - glucose checks q4 - A1c 10.4 - TSH 0.914 Plan: -Glargine 5u daily -SSI -CTM DVT PPX: Heparin SubQ PUD PPX : Protonix Diet: Heart healthy PT/OT indicated: consulted Lines: Peripheral IV x 2, G tube, Guevara Catheter Guevara: day 1 Code status: FULL Dispo: pending clinical stablility Contact: see separate note for contact info Patient staffed with attending physician, Dr. Gayle. Madyson Sutton MD Internal Medicine | PGY-1 [facility] | [facility] [employer] Subjective Overnight, no events/concerns. This morning patient reports breathing better. Objective Vital Signs Current: Visit Vitals BP 150/65 Pulse 79 Temp 36.8 ?C (98.2 ?F) Resp 24 Hour: Vitals: 04/02/24 0230 04/02/24 0245 04/02/24 0300 04/02/24 0315 BP: Pulse: 86 83 87 79 Resp: Temp: SpO2: 98% 98% 96% 94% Intake/Output: I/O last 3 completed shifts: In: 2395 (27.9 mL/kg) [P.O.:320; I.V.:625 (7.3 mL/kg); IV Piggyback:1450] Out: 1520 (17.7 mL/kg) [Other:1520] Weight: 85.7 kg Intake/Output Summary (Last 24 hours) at 04/02/2024 0635Last data filed at 04/02/2024 0100 Gross per 24 hour Intake 1130.18 ml Output 1760 ml Net -629.82 ml Net intake/output since admission: Net IO Since Admission: 93.04 mL [04/02/24 0635] PHYSICAL EXAM General Appearance: no acute distress, no pallorHEENT: Extra ocular movements intact, no scleral icterus, mucous membrane moist, external ears normal Neck: Supple, FROM Lungs: respiratory effort normal, CTA bilaterally, no wheezes/rales/rhonchi Heart: Regular rate and regular rhythm, no murmur Abdomen: soft, non-tender, non-distended MSK/Extremities: pulses 2+. No obvious deformity. Skin: No lesions, no rash. No jaundice. CRRT running at [facility] site Neurologic: AOx3, no focal deficits, speech clear Psych: Mood congruent affect, responds appropriately to questions. SCHEDULED HOSPITAL MEDICATIONSaspirin, 81 mg, Oral, Daily calcium gluconate, 2 g, Intravenous, Once gabapentin, 100 mg, Oral, q8h hydrALAZINE, 50 mg, Oral, Daily insulin glargine, 5 Units, Subcutaneous, q PM lidocaine, 1 patch, Apply externally, Daily meropenem, 500 mg, Intravenous, q8h pantoprazole, 40 mg, Intravenous, q24h DIRK sodium chloride, 500 mL, Intravenous, Once ticagrelor, 90 mg, Oral, q12h DIRK vancomycin, 500 mg, Intravenous, q12h PRN Medications:PRN medications: calcium chloride OR calcium chloride, dextrose, dextrose, glucagon, insulin lispro, magnesium sulfate OR magnesium sulfate, menthol-zinc oxide, ondansetron ODT, oxyCODONE, potassium & sodium phosphates, potassium chloride OR Potassium chloride, potassium phosphate OR potassium phosphate OR potassium phosphate, [COMPLETED] Insert peripheral IV AND [COMPLETED] Saline lock IV AND sodium chloride, [COMPLETED] Insert peripheral IV AND [COMPLETED] Saline lock IV AND sodium chloride, sodium phosphates 15 mmol in sodium chloride 0.9 % 100 mL IVPB OR sodium phosphates 30 mmol in sodium chloride 0.9 % 100 mL IVPB OR sodium phosphates 45 mmol in sodium chloride 0.9 % 100 mL IVPB, Pharmacy to dose vancomycin AND Vancomycin Pharmacy Dosing Drips: heparin, 0.1-40 Units/kg/hr, Last Rate: 18 Units/kg/hr (04/02/24 044) norepinephrine, 2-70 mcg/min, Last Rate: Stopped (04/01/24 190) physiological irrigating solution, 2,500 mL/hr LABSResults from last 7 days Lab Units 04/02/24 0314 04/01/2432103/31/242057 WBC 10*3/uL 16.03* 13.66* 15.08* HEMOGLOBIN g/dL 9.1* 8.9* 8.7* MCV fL 85.6 84.6 82.5 Results from last 7 daysLab Units 04/02/24 0314 04/01/2432103/31/242057 WBC 10*3/uL 16.03* 13.66* 15.08* HEMOGLOBIN g/dL 9.1* 8.9* 8.7* MCV fL 85.6 84.6 82.5 Results from last 7 daysLab Units 04/02/24 0323 04/02/24 0314 04/01/24 1941 04/01/24 1933 04/01/24 1146 04/01/24 1140 04/01/24 0332 04/01/24 032 POC SODIUM, ARTERIAL mEq/L 132* -- 132* -- < > -- < > -- SODIUM mEq/L -- 134* -- 136 -- 134* -- 137 POC POTASSIUM, ARTERIAL mEq/L 4.1 -- 3.5 -- < > -- < > -- POTASSIUM mEq/L -- 4.0 -- 3.5 -- 3.6 -- 3.8 POC CHLORIDE mEq/L 101 -- 102 -- < > -- < > -- CHLORIDE mEq/L -- 104 -- 105 -- 103 -- 105 CO2 mEq/L -- 19.1* -- 20.6 -- 20.2 -- 22.5 BUN mg/dL -- 15 -- 17 -- 19 -- 19 PHOSPHORUS mg/dL -- -- -- 3.7 -- 3.4 -- 3.1 < > = values in this interval not displayed. Results from last 7 daysLab Units 04/02/24 0314 04/01/24 0322 03/31/24 0414 AST U/L 389* 1,398* 3,764* ALT U/L 1,358* 2,115* 2,544* Results from last 7 daysLab Units 04/02/24 0314 04/01/24 1933 04/01/24 1140 04/01/24 0322 03/31/248 INR 1.42* -- -- 1.76* 1.73* PROTIME Seconds 17.6* -- -- 20.8* 20.6* PTT Seconds 85.4* 67.9* 59.5* 39.9* 34.3 No lab exists for component: "APH", "APCO2", "APO2"No lab exists for component: "POCGLU" Microbiology:No results found for the last 90 days. OTHER DATA Radiology Review:XR chest 1 view Result Date: 04/01/2024 EXAM: XR CHEST 1 VIEW DATE: 04/01/2024 8:05 INDICATION: dyspnea . TECHNIQUE: Chest 1 view FINDINGS: Comparison is made to March 31. Cardiomediastinal silhouette is unchanged. A right jugular CVC remains inplace. There are increasing bilateral infrahilar airspace opacities that could be due to atelectasis, aspiration or pneumonia. No pleural effusions. Cosigned by Carla Gayle MD at 04/02/2024 8:55 AM CST L PRESSER L PRESSER Associated attestation - Carla Gayle MD - 04/02/2024 8:55 AM CST The patient was seen and examined with the resident. The relevant lab results, imaging and EKGs were personally reviewed, and the medications were reconciled. I agree with above mentioned assessment and plan. Total amount of critical care time spent throughout the day excluding procedural time was - 35 minutes. The patient remain critically ill, and requires ICU level of care. -- Pt with inf STEMI, now s/p RCA PCI, normal BiV function-- Septic shock - ? Dental abscess, on antibiotics, CT pending , consult OMFS -- GUILHERME - on CRRT, nephrology on board -- Continue GI and DVT prophylaxis per ICU protocol -- Appreciate PCCM input on non-cardiac critical issues Patient Active Problem ListDiagnosis Date Noted ST elevation myocardial infarction (STEMI) of inferior wall ([facility]) 03/28/2024 Heart block 03/27/2024 Hyperglycemia due to diabetes mellitus (CMS/HCC) ([facility]) 03/27/2024 On mechanically assisted ventilation (CMS/HCC) ([facility]) 03/27/2024 Fall 03/27/2024 GUILHERME (acute kidney injury) ([facility]) 03/27/2024 Acute respiratory alkalosis 03/27/2024 Anemia of chronic disease 03/27/2024 Toxic metabolic encephalopathy 03/27/2024 Acute hypoxemic respiratory failure (HCC) 03/27/2024 Atelectasis 03/27/2024 Cardiogenic shock ([facility]) 03/27/2024 Severe sepsis ([facility]) 03/27/2024 Shock liver 03/27/2024 Hyperkalemia 03/27/2024 Pleural effusion, bilateral 03/27/2024 Adrenal nodule ([facility]) 03/27/2024 Shock (CMS/HCC) ([facility]) 03/27/2024 * Dyana Roberts OT - 04/01/2024 2:36 PM WHEEL PRESSER OT Encounter Note Patient Name: Elvis Freeman Today's Date: 04/01/2024 Missed Treatment Time and Reason Pt currently not HD stable for OT eval. PT pending possible LHC this date. OT will f/u at next available opportunity. Dyana Roberts OT L PRESSER * Jacky Echevarria-Tayo Shay MD - 04/01/2024 11:45 AM WHEEL PRESSER [facility] ICU Note This patient was seen with Dr. Cruz and bedside RN as part of a multidisciplinary team. Briefly this is a 63 y/o female who presented after a fall due to CHB related to inferior STEMI. Interval Events: -more tachypneic with CXR with increasing congestion -vasopressors off -fluid balance 822cc positive -liver enzymes with slight improvement -repeat TTE yesterday with preserved biventricular function Problem List -inferior STEMI s/p PCI to RCA on 03/27/24 -complete heart block - suspected to be ischemic which is now resolved -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 -HFmrEF - LVEF 60-65% with preserved RV function; significant MAC with mild MS -elevated liver enzymes - suspect related to low flow state and hypotension -possible sepsis -delirium -type 2 DM with hyperglycemia (A1c of ~10) -anemia - likely nutritional and chronic disease with some component of blood loss acutely -restless leg syndrome -history of fall -history of cholecystectomy -history of adrenal nodule Daily Plan -EMR documentation suggestive C-spine precautions; recommend consultation to trauma surgery for C-spine clearance -currently on DAPT; statin on hold (due to liver injury) -continue to monitor for bradyarrythmias -given elevated troponin plans for repeat cardiac catheterization pending per CCU -continue to monitor respiratory status -continue to monitor LFTs which are improving -continued on CRRT -continue basal insulin (reduced to 5 units) and SSI -continue broadened antibiotics; consider maxillofacial CT given prior history of tooth infection to rule out odontogenic abscess ICU Quality Review -ICU day: 5 days -mechanically ventilated: no -restraints indicated: no -PT/OT: ordered -DVT prophylaxis: chemical prophylaxis -GI prophylaxis: yes -central Lines: RIJ dialysis line -arterial Lines: none -devices: CRRT -guevara: no -tubes/drains: none -pressure injury: none I spent a total of 35 minutes caring for this patient including reviewing the patients chart, obtaining relevant history from the patient, performing a physical examination, interpreting date and coordinating care with consultants. This is exclusive to any procedures or teaching. Vitals: Visit Vitals BP 150/65 Pulse 93 Temp 36.8 ?C (98.2 ?F) Resp (!) 42 Ht 1.651 m (5' 5") Wt 85.7 kg (188 lb 15 oz) SpO2 97% BMI 31.44 kg/m? Smoking Status Unknown BSA 1.98 m? Tube/Drain Output: Output by Drain (mL) 03/30/24 07 - 03/30/24 1859 03/30/24 1900 - 03/31/24 0659 03/31/24 07 - 03/31/24 1859 03/31/24 1900 - 04/01/24 0659 04/01/24 0700 - 04/01/24 1145 Patient has no LDAs of requested type attached. Labs: Last ABG Results from last 7 days Lab Units 04/01/24 0332 03/31/24 1922 03/31/24 0907 POC PH, ARTERIAL 7.46* 7.47* 7.48* POC PCO2, ARTERIAL mmHg 32* 30* 30* POC PO2, ARTERIAL mmHg 80 77* 81 POC HCO3, ARTERIAL mMol/L 23 22 22 POC SO2, ARTERIAL (CALC) % 96.4 96.1 96.7 POC SO2, ARTERIAL % 97.1 96.8 97.4 POC BASE EXCESS, ARTERIAL mMol/L 0 -1 -1 Last CBC ResultLast Lab Result Automated Differential Collection Time: 04/01/24 3:22 AM Result Value Ref Range Segs % 71.2 (H) 40.9 - 70.4 % Lymphs % 15.4 15.3 - 46.4 % Monos % 9.6 3.9 - 10.9 % Eos % 1.0 0.3 - 4.1 % Basos % 0.3 0.2 - 1.3 % Immature Grans % 2.5 (H) 0.1 - 1.0 % Segs # 9.74 (H) 2.03 - 7.09 10*3/uL Lymphs # 2.10 1.09 - 3.65 10*3/uL Monos # 1.31 (H) 0.27 - 0.78 10*3/uL Eos # 0.13 0.02 - 0.33 10*3/uL Basos # 0.04 0.01 - 0.09 10*3/uL Imm Grans # 0.34 (H) 0.01 - 0.07 10*3/uL Complete Blood Count Collection Time: 04/01/24 3:22 AM Result Value Ref Range WBC 13.66 (H) 4.15 - 10.55 10*3/uL RBC 3.32 (L) 3.74 - 5.22 10*6/uL NRBC % 3.1 (H) 0 /100 WBC Hgb 8.9 (L) 10.8 - 14.8 g/dL Hct 28.1 (L) 33.9 - 45.4 % MCV 84.6 77.8 - 97.5 fL MCH 26.8 24.9 - 32.6 pg MCHC 31.7 30.1 - 35.0 g/dL RDW - SD 46.9 37.6 - 49.1 fL Plt Count 296 191 - 422 10*3/uL MPV 12.3 9.0 - 12.6 fL Last BMP or CMP ResultLast Lab Result Basic Metabolic Panel Collection Time: 03/31/24 7:41 PM Result Value Ref Range Glucose Lvl 124 (H) 70 - 99 mg/dL BUN 22 9 - 23 mg/dL Creatinine Lvl 1.95 (H) 0.55 - 1.02 mg/dL Sodium Lvl 137 136 - 145 mEq/L Potassium Lvl 3.9 3.4 - 4.5 mEq/L Chloride Lvl 106 98 - 107 mEq/L CO2 Lvl 21.6 20.0 - 31.0 mEq/L Anion Gap 13.3 10.0 - 20.0 mEq/L Calcium Lvl 8.4 8.3 - 10.6 mg/dL eGFR 29 (L) >60 mL/min/1.73m2 Culture ResultsNo results found for the last 90 days. Bowel Movements:No data recorded Ventilator Settings Active Medications heparin, 0.1-40 Units/kg/hr, Last Rate: 17 Units/kg/hr (04/01/24 1000) norepinephrine, 2-70 mcg/min, Last Rate: Stopped (04/01/24 0700) physiological irrigating solution, 2,500 mL/hr aspirin, 81 mg, Oral, Dailycalcium gluconate, 2 g, Intravenous, Once gabapentin, 100 mg, Oral, q8h hydrALAZINE, 50 mg, Oral, Daily insulin glargine, 5 Units, Subcutaneous, q PM lidocaine, 1 patch, Apply externally, Daily meropenem, 500 mg, Intravenous, q8h pantoprazole, 40 mg, Intravenous, q24h DIRK sodium chloride, 500 mL, Intravenous, Once ticagrelor, 90 mg, Oral, q12h DIRK vancomycin, 500 mg, Intravenous, q12h L PRESSER * Radha Forrest MD - 04/01/2024 9:00 AM WHEEL PRESSER ME Nephrology Progress Note Chief Complaint: had concerns including Fall. Nephrology following for: Acute Kidney Injury Assessment & Plan: Elvis Freeman is a 63 y/o F with PMH of DM who presented via EMS after being found unresponsive by family. She was noted to have complete heart block with inferior STEMI now s/p placement of temporary pacer and LHC w/ stent x 1 on 03/27. Nephrology is following for GUILHERME. Recommendations: - Will continue CRRT for clearance for now, volume goal of net even - Continue strict I/Os - Infectious work-up and management per CCU and PCCM GUILHERME - Likely ischemic ATN in setting of hemodynamic instability, sepsis, and possible underlying chronic kidney disease - Unknown Cr baseline - Cr 2.77 on admission, up to 5.22 on 03/29 - Renal U/S showed bilateral parenchymal disease - Guevara in place, patient remains anuric - On CRRT as of 03/29 Volume status:- Some slight signs of volume overload with congestive hepatopathy, pleural effusions - Manage with CRRT, net even goal Electrolytes:- Stable and appropriate - Optimize with PUTTYING AND CALKING SUPERVISOR Acid-Base:- Bicarb at goal, no active concerns Normocytic anemia:- Hgb 6.8 -> 8.9 post-transfusion 03/28 - Anemia workup pending - Ferritin 663 Case discussed w/ attending. [facility]ha [facility] 9:00 AM --Subjective: No acute events overnight. Patient resting in bed. Objective: Vitals:04/01/24 0615 04/01/24 0630 04/01/24 0631 04/01/24 0800 BP: Pulse: 94 94 93 93 Resp: 24 23 (!) 34 (!) 35 Temp: SpO2: 98% 97% 98% 96% Intake/Output Summary (Last 24 hours) at 04/01/2024 0900Last data filed at 04/01/2024 0700 Gross per 24 hour Intake 1219.94 ml Output 380 ml Net 839.94 ml Physical Exam:Constitutional: Appearance: She is ill-appearing. HENT: Head: Normocephalic and atraumatic. Right Ear: External ear normal. Left Ear: External ear normal. Cardiovascular: Rate and Rhythm: Normal rate and regular rhythm. Pulses: Normal pulses. Heart sounds: Normal heart sounds. Pulmonary: Effort: Pulmonary effort is normal. No respiratory distress. Breath sounds: Normal breath sounds. Abdominal: General: There is no distension. Palpations: Abdomen is soft. Tenderness: There is no abdominal tenderness. Musculoskeletal: General: Normal range of motion. Right lower leg: Edema (trace pitting edema bilaterally) present. Left lower leg: Edema (trace pitting edema bilaterally) present. Skin: General: Skin is warm. Coloration: Skin is not jaundiced. Findings: No bruising. Neurological: General: No focal deficit present. Mental Status: She is oriented to person, place, and time. Dialysis Access: Right IJ Medications:Scheduled: aspirin, 81 mg, Oral, Daily calcium gluconate, 2 g, Intravenous, Once gabapentin, 100 mg, Oral, q8h hydrALAZINE, 50 mg, Oral, Daily insulin glargine, 5 Units, Subcutaneous, q PM lidocaine, 1 patch, Apply externally, Daily meropenem, 500 mg, Intravenous, q8h pantoprazole, 40 mg, Intravenous, q24h DIRK sodium chloride, 500 mL, Intravenous, Once ticagrelor, 90 mg, Oral, q12h DIRK vancomycin, 500 mg, Intravenous, q12h Infusions:heparin, 0.1-40 Units/kg/hr, Last Rate: 17 Units/kg/hr (04/01/24 0500) norepinephrine, 2-70 mcg/min, Last Rate: 2 mcg/min (03/31/24 1800) physiological irrigating solution, 2,500 mL/hr Data: Labs and imaging reviewed. Lab Results Component Value Date BUN 19 04/01/2024 Results from last 7 daysLab Units 04/01/24 0322 03/31/24 1941 03/31/24 1809 CREATININE mg/dL 1.77* 1.95* 2.02* Electrolytes:LYTES - Na/K/Cl/CO2: 137/3.8/105/22.5 (04/01 032) Lab ResultsComponent Value Date Calcium Lvl 8.7 04/01/2024 Phosphorus Lvl 3.1 04/01/2024 Lab ResultsComponent Value Date Hgb 8.9 (L) 04/01/2024 Cosigned by Hermann Plunkett MD at 04/01/2024 2:08 PM WHEEL PRESSER L PRESSER L PRESSER Associated attestation - Hermann Plunkett MD - 04/01/2024 2:08 PM WHEEL PRESSER Critical Care Nephrology Staff Note I saw and evaluated this critically ill patient in the ICU with shock requiring pressor support intermittently, acute hypoxemic respiratory failure on supplemental oxygen, oliguric GUILHERME requiring CRRT for treatment of volume overload and management of electrolyte disorders. I have reviewed the laboratory and radiographic data, discussed the patient with the fellow/resident, primary team and nurse. I spent 30 min of critical care time discussing and coordinating the care of this medically complex patient not including procedures. Hermann Plunkett, [place] Nephrology * Mary Grace Gaming PharmD - 04/01/2024 8:49 AM WHEEL PRESSER Vancomycin Dosing and Monitoring Protocol - Initial Consult Note Consulting Physician: oDug Hale MD Indication for Vancomycin: Bloodstream Infection Goal Trough: 10-20 Vancomycin Start Date: 04/01/24 Duration: 7 days 63 y.o. female Weight: 85.9 kg (189 lb 6 oz) [place] body weight: 57 kg (125 lb 10.6 oz) Adjusted ideal body weight: 68.5 kg (150 lb 15.5 oz) Estimated Creatinine Clearance: 35.6 mL/min (A) (by C-G formula based on SCr of 1.77 mg/dL (H)). Lab Results Component Value Date Creatinine Lvl 1.77 (H) 04/01/2024 Creatinine Lvl 1.95 (H) 03/31/2024 Creatinine Lvl 2.02 (H) 03/31/2024 Creatinine Lvl 2.21 (H) 03/31/2024 Creatinine Lvl 2.40 (H) 03/31/2024 Creatinine Lvl 2.68 (H) 03/31/2024 Creatinine Lvl 3.22 (H) 03/30/2024 Creatinine Lvl 3.26 (H) 03/30/2024 Lab Results Component Value Date MRSA by PCR Negative 03/28/2024 Laboratory Data and Vancomycin Dosing: Lab Results Component Value Date Vancomycin Lvl 24.2 04/01/2024 Assessment and Plan: Patient is receiving CRRT. Patient is currently on vancomycin 750 mg IV q12h. Level 24.2, although drawn 2 hours early will still plan to decrease dose to 500mg q12h, will draw next level prior to 4th dose if therapy continues on 04/03 (not yet ordered) Thank you for allowing us to participate in the care of this patient. We will continue to monitor and adjust vancomycin therapy as needed. L PRESSER * Alexia Vargas, PT - 04/01/2024 8:05 AM WHEEL PRESSER Encounter Note Patient Name: Elvis Freeman Today's Date: 04/01/2024 Missed Treatment Time and Reason Per discussion w/ RN, requesting to defer PT eval due to tenuous status. Pt tachypenic and SOB, pending possible LHC today. PT will defer and follow up when medically appropriate. Alexia Vargas, PT L PRESSER * Madyson Sutton MD - 04/01/2024 7:08 AM WHEEL PRESSER CCU Progress Note Admission Date: 03/27/2024 CCU Day: 5 Problem List Principal Problem: ST elevation myocardial infarction (STEMI) of inferior wall (HCC) Active Problems: Heart block Hyperglycemia due to diabetes mellitus (CMS/HCC) (HCC) On mechanically assisted ventilation (CMS/HCC) (HCC) Fall GUILHERME (acute kidney injury) (HCC) Acute respiratory alkalosis Anemia of chronic disease Toxic metabolic encephalopathy Acute hypoxemic respiratory failure (HCC) Atelectasis Cardiogenic shock (HCC) Severe sepsis (HCC) Shock liver Hyperkalemia Pleural effusion, bilateral Adrenal nodule (HCC) Assessment & Plan Ms. Freeman is a 63-year-old female presented by EMS after being found down and unresponsive by family and determined to be in complete heart block, now s/p placement of temporary pacer -- CHB/ECG changes concerning for STEMI - s/p Temp Pacer, LHC showed 100% RCA occlusion s/p PCI with HARI x1 to mid RCA (via R Fem access). Changes - 04/01/24: - CXR this AM with worsening diffuse opacities - s/p CRRT initation 03/29, set for net negative today 04/01 - Continue vanc, cef given improvement in leukocytosis and bp - CT maxillofacial to evaluate for dental abscess - Transvenous pacer removed 03/28 - Extubated 03/28 Cardiovascular: #STEMI s/p PCI with HARI to mid RCA (100% RCA occlusion) #CAD #Complete Heart Block - EP to evaluate for permanent pacemaker - EKG now paced - troponin initially 1846 > 2205 > 8000 -Patient s/p PCI with HARI, currently HDS and extubated 03/28, loaded with Brilinta/Aspirin during procedure - TTE (03/31): EF 60-65%, RV normal systolic fxn, LA mild dilation Plan - Continue ASA 81, Brilinta 90mg daily - Holding Statin for now given elevated LFT's, will resume when resolved - Cont to trend trop Neurology: - Pain control: Tylenol prn - Fall precautions - CT head negative Respiratory: Acute respiratory failure Pulmonary edema - Extubated 03/28 - New O2 requirement of 4-5L - CXR 04/01 with worsening diffuse opacities - Will pull fluids with CRRT - Aspiration precautions Gastroenterology: #Transaminitis - Likely shock liver- finally down trending 04/01 - Nutrition, heart healthy diet - PUD ppx - BM Plan: -Trend LFT's Renal: #GUILHERME on CKD? - Cr 2.75, unknown baseline - monitor UOP - pt anuric -Cr uptrending, with urine output decreasing - Renal US Bilateral renal parenchymal disease. - nephrology consulted, initated CRRT 03/29 Plan: - Urine Lytes, Urine Protein/Creatinine pending - CRRT per nephrology, now set to net negative to pull fluids - monitor urine output Infectious Disease: #Persistent Fever, concern for Sepsis #Leukocytosis, improving #Lactic acidosis, improved - Afebrile since 03/28 2000 - Lactic acid 5.32 -> 2.34 -> 1.33 - Continue vanc, kimberly - cultures negative to date but patient was taking abx days prior for dental abscess - CT maxillofacial to evaluate for dental abscess Hematology: #Anemia - family reports no hx - Hb 8.0 yesterday - Hb 7.1, after PCI - no signs of bleeding - Hb 03/29 6.8 > transfused 1 U pRBC, responded appropriately Plan - CTM - Follow-up Iron studies (send out lab 2-3 days) - Will transfuse to keep Hgb >7.0 Endocrinology: - on home insulin +/- metformin - Goal BS: 140-180 - glucose checks q4 - A1c 10.4 - TSH 0.914 Plan: -Glargine 5u daily -SSI -CTM DVT PPX: Heparin SubQ PUD PPX : Protonix Diet: Heart healthy PT/OT indicated: consulted Lines: Peripheral IV x 2, G tube, Guevara Catheter Guevara: day 1 Code status: FULL Dispo: pending clinical stablility Contact: see separate note for contact info Patient staffed with attending physician, MD Madyson Stauffer MD Internal Medicine | PGY-1 [facility] | [facility] Subjective During the day, levo gtt off. Overnight, patient noted to be hypertensive requiring hydralazine 25mg x1, 50mg x1. This morning, patient reports feeling short of breath requiring 4-5L NC. She describes it as a mild pressure like discomfort. She was reporting prior to DE she had a dental abscess and was taking antibiotics for about a week after her tooth removal. Son at bedside saying patient has been restless at baseline and needed to be on a rocking chair at home. Objective Vital Signs Current: Visit Vitals BP 150/65 Pulse 93 Temp 36.8 ?C (98.2 ?F) Resp (!) 34 24 Hour: Vitals: 04/01/24 0600 04/01/24 0615 04/01/24 0630 04/01/24 0631 BP: Pulse: 92 94 94 93 Resp: 23 24 23 (!) 34 Temp: SpO2: 98% 98% 97% 98% Intake/Output: I/O last 3 completed shifts: In: 2043.9 (23.8 mL/kg) [P.O.:650; I.V.:243.9 (2.8 mL/kg); IV Piggyback:1150] Out: 800 (9.3 mL/kg) [Other:800] Weight: 85.7 kg Intake/Output Summary (Last 24 hours) at 04/01/2024 0708Last data filed at 04/01/2024 0600 Gross per 24 hour Intake 1422.76 ml Output 480 ml Net 942.76 ml Net intake/output since admission: Net IO Since Admission: 707.22 mL [04/01/24 0708] PHYSICAL EXAM General Appearance: no acute distress, no pallorHEENT: Extra ocular movements intact, no scleral icterus, mucous membrane moist, external ears normal Neck: Supple, FROM Lungs: respiratory effort normal, CTA bilaterally, no wheezes/rales/rhonchi Heart: Regular rate and regular rhythm, no murmur Abdomen: soft, non-tender, non-distended MSK/Extremities: pulses 2+. No obvious deformity. Skin: No lesions, no rash. No jaundice. CRRT running at [facility] site Neurologic: AOx3, no focal deficits, speech clear Psych: Mood congruent affect, responds appropriately to questions. SCHEDULED HOSPITAL MEDICATIONSaspirin, 81 mg, Oral, Daily calcium gluconate, 2 g, Intravenous, Once gabapentin, 100 mg, Oral, q8h hydrALAZINE, 50 mg, Oral, Daily insulin glargine, 5 Units, Subcutaneous, q PM lidocaine, 1 patch, Apply externally, Daily meropenem, 500 mg, Intravenous, q8h pantoprazole, 40 mg, Intravenous, q24h DIRK sodium chloride, 500 mL, Intravenous, Once ticagrelor, 90 mg, Oral, q12h DIRK vancomycin (Vancocin) 750 mg in sodium chloride 0.9 % 100 mL IVPB-MB+, 750 mg, Intravenous, q12h PRN Medications:PRN medications: calcium chloride OR calcium chloride, dextrose, dextrose, glucagon, insulin lispro, magnesium sulfate OR magnesium sulfate, menthol-zinc oxide, ondansetron ODT, oxyCODONE, potassium & sodium phosphates, potassium chloride OR Potassium chloride, potassium phosphate OR potassium phosphate OR potassium phosphate, [COMPLETED] Insert peripheral IV AND [COMPLETED] Saline lock IV AND sodium chloride, [COMPLETED] Insert peripheral IV AND [COMPLETED] Saline lock IV AND sodium chloride, sodium phosphates 15 mmol in sodium chloride 0.9 % 100 mL IVPB OR sodium phosphates 30 mmol in sodium chloride 0.9 % 100 mL IVPB OR sodium phosphates 45 mmol in sodium chloride 0.9 % 100 mL IVPB, Pharmacy to dose vancomycin AND Vancomycin Pharmacy Dosing Drips: heparin, 0.1-40 Units/kg/hr, Last Rate: 17 Units/kg/hr (04/01/24 0500) norepinephrine, 2-70 mcg/min, Last Rate: 2 mcg/min (03/31/24 1800) physiological irrigating solution, 2,500 mL/hr LABSResults from last 7 days Lab Units 04/01/24 0322 03/31/24205703/31/24 1812 03/31/24 0414 WBC 10*3/uL 13.66* 15.08* -- 19.54* POC HEMOGLOBIN, VENOUS g/dL -- -- 10.0* -- HEMOGLOBIN g/dL 8.9* 8.7* -- 8.4* MCV fL 84.6 82.5 -- 82.7 Results from last 7 daysLab Units 04/01/2432103/31/24205703/31/24181103/31/24413 WBC 10*3/uL 13.66* 15.08* -- 19.54* POC HEMOGLOBIN, VENOUS g/dL -- -- 10.0* -- HEMOGLOBIN g/dL 8.9* 8.7* -- 8.4* MCV fL 84.6 82.5 -- 82.7 Results from last 7 daysLab Units 04/01/24 03304/01/2432103/31/24194003/31/24181103/31/24180803/31/24 1218 POC SODIUM, VENOUS -- -- -- < > -- -- POC SODIUM, ARTERIAL mEq/L 133* -- -- < > -- -- SODIUM mEq/L -- 137 137 -- 137 135* POC POTASSIUM, VENOUS -- -- -- < > -- -- POC POTASSIUM, ARTERIAL mEq/L 4.0 -- -- < > -- -- POTASSIUM mEq/L -- 3.8 3.9 -- 4.0 3.8 POC CHLORIDE, VENOUS -- -- -- < > -- -- POC CHLORIDE mEq/L 101 -- -- < > -- -- CHLORIDE mEq/L -- 105 106 -- 105 104 CO2 mEq/L -- 22.5 21.6 -- 21.2 22.4 BUN mg/dL -- 19 22 -- 23 25* PHOSPHORUS mg/dL -- 3.1 -- -- 3.4 3.3 < > = values in this interval not displayed. Results from last 7 daysLab Units 04/01/2432103/31/2441303/30/24 030 AST U/L 1,398* 3,764* 507* ALT U/L 2,115* 2,544* 639* Results from last 7 daysLab Units 04/01/2432103/31/24205703/31/24413 INR 1.76* 1.73* 1.99* PROTIME Seconds 20.8* 20.6* 22.9* PTT Seconds 39.9* 34.3 38.2* No lab exists for component: "APH", "APCO2", "APO2"No lab exists for component: "POCGLU" Microbiology:No results found for the last 90 days. OTHER DATA Radiology Review:Transthoracic echo (TTE) complete Result Date: 03/31/2024 Left Ventricle: Left ventricle is smaller than normal. Normal wall thickness in the left ventricle. Left ventricular mass is normal. Normal systolic function with an estimated EF of 60 - 65%. Global longitudinal strain is normal. LV GLS is -18.3%. Unable to assess diastolic function in the left ventricle due to mitral annular calcification. Right Ventricle: Right ventricle size is normal. Normal systolic function in the right ventricle. Left Atrium: Left atrium is mildly dilated. Aortic Valve: Aortic valve is trileaflet. Mildly thickened leaflets in the aortic valve. Mildly calcified leaflets in the aortic valve. Mitral Valve: No leaflet thickening in the mitral valve. No leaflet calcification in the mitral valve. Severe posterior mitral annular calcification. Mild mitral regurgitation present. Mild mitral stenosis present. Mean transmitral gradient 7 mmHg at HR 85 bpm Tricuspid Valve: Mild tricuspid regurgitation present. RVSP is 41.00 mmHg. Mild pulmonary hypertension present. RVSP is 41.00 mmHg. Aorta: Normal sized sinus of Valsalva present. Pericardium: No pericardial effusion present. ECG 12 leadResult Date: 03/31/2024 ACCELERATED JUNCTIONAL RHYTHM LOW QRS VOLTAGE -- CONSIDER PULMONARY DISEASE, PERICARDIAL EFFUSION, OR NORMAL VARIANT INFERIOR INFARCTION , POSSIBLY ACUTE CANNOT RULE OUT ANTEROLATERAL INJURY PATTERN ABNORMAL ECG NO PREVIOUS ECGS AVAILABLE Confirmed by Asad Resendez ([id number]) on 03/31/2024 3:12:43 PM Cosigned by Yakov Cuadra MD at 04/01/2024 8:16 PM CST L PRESSER L PRESSER L PRESSER Associated attestation - Yakov Cuadra MD - 04/01/2024 8:16 PM WHEEL PRESSER The patient was seen and examined with the resident. The relevant lab results, imaging and EKGs were personally reviewed, and the medications were reconciled. I agree with above mentioned assessment and plan. Total amount of critical care time spent throughout the day excluding procedural time was - 35 minutes. The patient remain critically ill, and requires ICU level of care. -- Improving on meropenem - recent dental abscess possible cause for SepticShock - will get CT Face, cont abx -- now with VOL and pulm edema, ARF - renal consult - on dialysis now; pull fluid -- Continue GI and DVT prophylaxis per ICU protocol -- Appreciate PCCM input on non-cardiac critical issues Patient Active Problem ListDiagnosis Date Noted ST elevation myocardial infarction (STEMI) of inferior wall ([facility]) 03/28/2024 Heart block 03/27/2024 Hyperglycemia due to diabetes mellitus (CMS/HCC) ([facility]) 03/27/2024 On mechanically assisted ventilation ([facility]/HCC) ([facility]) 03/27/2024 Fall 03/27/2024 GUILHERME (acute kidney injury) ([facility]) 03/27/2024 Acute respiratory alkalosis 03/27/2024 Anemia of chronic disease 03/27/2024 Toxic metabolic encephalopathy 03/27/2024 Acute hypoxemic respiratory failure ([facility]) 03/27/2024 Atelectasis 03/27/2024 Cardiogenic shock ([facility]) 03/27/2024 Severe sepsis ([facility]) 03/27/2024 Shock liver 03/27/2024 Hyperkalemia 03/27/2024 Pleural effusion, bilateral 03/27/2024 Adrenal nodule ([facility]) 03/27/2024 Shock ([facility]/HCC) ([facility]) 03/27/2024 * Jacky Echevarria-Tayo Shay MD - 03/31/2024 6:00 PM CDT [facility] ICU Note This patient was seen with Dr. Cruz and bedside RN as part of a multidisciplinary team. Briefly this is a 63 y/o female who presented after a fall due to CHB related to inferior STEMI. 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 -HFmrEF - LVEF 45-50%; significant MAC with mild MS -elevated liver enzymes - suspect related to low flow state and hypotension -possible sepsis -delirium -type 2 DM with hyperglycemia (A1c of ~10) -anemia - likely nutritional and chronic disease with some component of blood loss acutely -history of fall -history of cholecystectomy -history of adrenal nodule Daily Plan -currently on DAPT; statin on hold (due to increasing liver enzymes) -continue to monitor for bradyarrythmias -recommend checking mixed venous gas; albeit repeat TTE without any obvious changes and LVEF appears robust and RV does not appear dilated; furthermore the patients pulse pressure does not suggest cardiac source -continue to monitor respiratory status -continue to monitor LFTs; recent doppler liver US without any acute pathology and no obvious drug culprits. If LFTs continue increasing tomorrow then consider a trial of NAC if no obvious source of hypoperfusion found -continued on CRRT -continue basal insulin and SSI -continue broadened antibiotics ICU Quality Review -ICU day: 4 days -mechanically ventilated: no -restraints indicated: no -PT/OT: ordered -DVT prophylaxis: chemical prophylaxis -GI prophylaxis: yes -central Lines: RIJ dialysis line -arterial Lines: none -devices: CRRT -guevara: no -tubes/drains: none -pressure injury: none I spent a total of 35 minutes caring for this patient including reviewing the patients chart, obtaining relevant history from the patient, performing a physical examination, interpreting date and coordinating care with consultants. This is exclusive to any procedures or teaching. Vitals: Visit Vitals BP 150/65 Pulse 91 Temp 36.7 ?C (98.1 ?F) Resp (!) 31 Ht 1.651 m (5' 5") Wt 85.7 kg (188 lb 15 oz) SpO2 94% BMI 31.44 kg/m? Smoking Status Unknown BSA 1.98 m? Tube/Drain Output: Output by Drain (mL) 03/29/24 0700 - 10/31/24 1859 03/29/241899 - 03/30/24 0659 03/30/24699 - 03/30/24 1859 03/30/241899 - 03/31/24 0659 03/31/24 07 - 03/31/24 1800 Patient has no LDAs of requested type attached. Labs: Last ABG Results from last 7 days Lab Units 03/31/24 0907 03/31/24 0425 03/31/24 0157 POC PH, ARTERIAL 7.48* 7.54* 7.40 POC PCO2, ARTERIAL mmHg 30* 23* 31* POC PO2, ARTERIAL mmHg 81 99 72* POC HCO3, ARTERIAL mMol/L 22 20* 19* POC SO2, ARTERIAL (CALC) % 96.7 98.4 94.3* POC SO2, ARTERIAL % 97.4 98.9 95.1 POC BASE EXCESS, ARTERIAL mMol/L -1 -2 -5* Last CBC ResultLast Lab Result Automated Differential Collection Time: 03/31/24 4:14 AM Result Value Ref Range Segs % 82.3 (H) 40.9 - 70.4 % Lymphs % 7.8 (L) 15.3 - 46.4 % Monos % 7.6 3.9 - 10.9 % Eos % 0.0 (L) 0.3 - 4.1 % Basos % 0.2 0.2 - 1.3 % Immature Grans % 2.1 (H) 0.1 - 1.0 % Segs # 16.08 (H) 2.03 - 7.09 10*3/uL Lymphs # 1.52 1.09 - 3.65 10*3/uL Monos # 1.49 (H) 0.27 - 0.78 10*3/uL Eos # 0.00 (L) 0.02 - 0.33 10*3/uL Basos # 0.03 0.01 - 0.09 10*3/uL Imm Grans # 0.42 (H) 0.01 - 0.07 10*3/uL Complete Blood Count Collection Time: 03/31/24 4:14 AM Result Value Ref Range WBC 19.54 (H) 4.15 - 10.55 10*3/uL RBC 3.30 (L) 3.74 - 5.22 10*6/uL NRBC % 2.6 (H) 0 /100 WBC Hgb 8.4 (L) 10.8 - 14.8 g/dL Hct 27.3 (L) 33.9 - 45.4 % MCV 82.7 77.8 - 97.5 fL MCH 25.5 24.9 - 32.6 pg MCHC 30.8 30.1 - 35.0 g/dL RDW - SD 47.2 37.6 - 49.1 fL Plt Count 455 (H) 191 - 422 10*3/uL MPV 11.9 9.0 - 12.6 fL Last BMP or CMP ResultLast Lab Result Basic Metabolic Panel - q4h x 24 hrs Collection Time: 03/31/24 12:18 PM Result Value Ref Range Glucose Lvl 120 (H) 70 - 99 mg/dL BUN 25 (H) 9 - 23 mg/dL Creatinine Lvl 2.21 (H) 0.55 - 1.02 mg/dL Sodium Lvl 135 (L) 136 - 145 mEq/L Potassium Lvl 3.8 3.4 - 4.5 mEq/L Chloride Lvl 104 98 - 107 mEq/L CO2 Lvl 22.4 20.0 - 31.0 mEq/L Anion Gap 12.4 10.0 - 20.0 mEq/L Calcium Lvl 8.5 8.3 - 10.6 mg/dL eGFR 25 (L) >60 mL/min/1.73m2 Culture ResultsNo results found for the last 90 days. Bowel Movements:No data recorded Ventilator Settings Active Medications norepinephrine, 2-70 mcg/min, Last Rate: 2 mcg/min (03/31/24 1440) physiological irrigating solution, 2,500 mL/hr aspirin, 81 mg, Oral, Daily[Held by provider] atorvastatin, 80 mg, Oral, Daily calcium gluconate, 2 g, Intravenous, Once gabapentin, 100 mg, Oral, q8h heparin, 5,000 Units, Subcutaneous, q8h insulin glargine, 5 Units, Subcutaneous, q PM lidocaine, 1 patch, Apply externally, Daily meropenem, 500 mg, Intravenous, q8h pantoprazole, 40 mg, Intravenous, q24h DIRK sodium chloride, 500 mL, Intravenous, Once ticagrelor, 90 mg, Oral, q12h DRIK vancomycin (Vancocin) 750 mg in sodium chloride 0.9 % 100 mL IVPB-MB+, 750 mg, Intravenous, q12h * Mary Grace Gaming PharmD - 03/31/2024 8:54 AM CDT Vancomycin Dosing and Monitoring Protocol - Initial Consult Note Consulting Physician: Alexia Indication for Vancomycin: Bloodstream Infection Goal Trough: 10-20 Vancomycin Start Date: 03/31/24 Duration: 7 days 63 y.o. female Weight: 85.9 kg (189 lb 6 oz) [place] body weight: 57 kg (125 lb 10.6 oz) Adjusted ideal body weight: 68.5 kg (150 lb 15.5 oz) Estimated Creatinine Clearance: 23.5 mL/min (A) (by C-G formula based on SCr of 2.68 mg/dL (H)). Lab Results Component Value Date Creatinine Lvl 2.68 (H) 03/31/2024 Creatinine Lvl 3.22 (H) 03/30/2024 Creatinine Lvl 3.26 (H) 03/30/2024 Creatinine Lvl 3.75 (H) 03/30/2024 Creatinine Lvl 4.62 (H) 03/30/2024 Creatinine Lvl 4.62 (H) 03/30/2024 Creatinine Lvl 5.88 (H) 03/29/2024 Lab Results Component Value Date MRSA by PCR Negative 03/28/2024 Laboratory Data and Vancomycin Dosing: Lab Results Component Value Date Vancomycin Lvl 30.2 03/29/2024 Assessment and Plan: Patient is receiving CRRT. Patient is currently on vancomycin 750 mg IV q12h. Plan to draw a level on 04/01 @0530 (trough level before 3rd maintenance dose). MRSA PCR is not indicated Thank you for allowing us to participate in the care of this patient. We will continue to monitor and adjust vancomycin therapy as needed. * Radha Forrest MD - 03/31/2024 8:38 AM CDT [facility] Progress Note Chief Complaint: had concerns including Fall. Nephrology following for: Acute Kidney Injury Assessment & Plan: Elvis Freeman is a 63 y/o F with PMH of DM who presented via EMS after being found unresponsive by family. She was noted to have complete heart block with inferior STEMI now s/p placement of temporary pacer and LHC w/ stent x 1 on 03/27. Nephrology is following for GUILHERME. Recommendations: - Will continue CRRT for clearance for now, volume goal of net even - Continue strict I/Os - Infectious work-up and management per CCU and PCCM GUILHERME - Likely ischemic ATN in setting of hemodynamic instability, sepsis, and possible underlying chronic kidney disease - Unknown Cr baseline - Cr 2.77 on admission, up to 5.22 on 03/29 - Renal U/S showed bilateral parenchymal disease - Guevara in place, patient remains anuric - On CRRT as of 03/29 Volume status:- Some slight signs of volume overload with congestive hepatopathy, pleural effusions - Manage with CRRT, net even goal Electrolytes:- Stable and appropriate - Optimize with PUTTYING AND CALKING SUPERVISOR Acid-Base:- Bicarb at goal, no active concerns Normocytic anemia:- Hgb 6.8 -> 8.4 post-transfusion 03/28 - Anemia workup pending - Ferritin 663 Case discussed w/ attending. Radha [facility] 8:38 AM --Subjective: Overnight, patient was noted to have MAPs in 40s. She briefly required levo and an arterial line was placed per primary. This morning, patient is resting comfortably in bed. Objective: Vitals:03/31/24 0600 03/31/24 0615 03/31/24 0630 03/31/24 0645 BP: Pulse: 91 91 87 92 Resp: 20 20 (!) 27 (!) 39 Temp: SpO2: 93% 92% 93% 93% Intake/Output Summary (Last 24 hours) at 03/31/2024 0838Last data filed at 03/31/2024 0600 Gross per 24 hour Intake 1131.11 ml Output 240 ml Net 891.11 ml Physical Exam:Constitutional: Appearance: She is ill-appearing. HENT: Head: Normocephalic and atraumatic. Right Ear: External ear normal. Left Ear: External ear normal. Cardiovascular: Rate and Rhythm: Normal rate and regular rhythm. Pulses: Normal pulses. Heart sounds: Normal heart sounds. Pulmonary: Effort: Pulmonary effort is normal. No respiratory distress. Breath sounds: Normal breath sounds. Abdominal: General: There is no distension. Palpations: Abdomen is soft. Tenderness: There is no abdominal tenderness. Musculoskeletal: General: Normal range of motion. Right lower leg: Edema (trace pitting edema bilaterally) present. Left lower leg: Edema (trace pitting edema bilaterally) present. Skin: General: Skin is warm. Coloration: Skin is not jaundiced. Findings: No bruising. Neurological: General: No focal deficit present. Mental Status: She is oriented to person, place, and time. Dialysis Access: Right IJ Medications:Scheduled: aspirin, 81 mg, Oral, Daily [Held by provider] atorvastatin, 80 mg, Oral, Daily calcium gluconate, 2 g, Intravenous, Once gabapentin, 100 mg, Oral, q8h heparin, 5,000 Units, Subcutaneous, q8h insulin glargine, 10 Units, Subcutaneous, q PM lidocaine, 1 patch, Apply externally, Daily meropenem, 500 mg, Intravenous, q8h norepinephrine, , , pantoprazole, 40 mg, Intravenous, q24h DIRK polyethylene glycol (PEG) 3350, 17 g, Oral, Daily sennosides, 2 tablet, Oral, q12h DIRK sodium chloride, 500 mL, Intravenous, Once ticagrelor, 90 mg, Oral, q12h DIRK vancomycin (Vancocin) 750 mg in sodium chloride 0.9 % 100 mL IVPB-MB+, 750 mg, Intravenous, q12h Infusions:norepinephrine, 2-70 mcg/min, Last Rate: Stopped (03/31/24 0600) physiological irrigating solution, 2,500 mL/hr Data: Labs and imaging reviewed. Lab Results Component Value Date BUN 31 (H) 03/31/2024 Results from last 7 daysLab Units 03/31/24 0414 03/30/24200803/30/24 1258 CREATININE mg/dL 2.68* 3.26* | 3.22* 3.75* Electrolytes:LYTES - Na/K/Cl/CO2: 138/4.6*/106/21.7 (03/31 414) Lab ResultsComponent Value Date Calcium Lvl 8.5 03/31/2024 Phosphorus Lvl 3.9 03/31/2024 Lab ResultsComponent Value Date Hgb 8.4 (L) 03/31/2024 Cosigned by Hermann Plunkett MD at 03/31/2024 3:17 PM CDT Associated attestation - Hermann Plunkett MD - 03/31/2024 3:17 PM CDT Critical Care Nephrology Staff Note I saw and evaluated this critically ill patient in the ICU with shock requiring pressor support intermittently, oliguric GUILHERME due to ATN requiring CRRT for treatment of volume overload and management of electrolyte disorders. I have reviewed the laboratory and radiographic data, discussed the patient with the fellow/resident, primary team and nurse. I spent 30 min of critical care time discussing and coordinating the care of this medically complex patient not including procedures. Hermann Plunkett DOUT Nephrology * Benjamin Hopson OT - 03/31/2024 8:34 AM CDT OT Encounter Note Patient Name: Elvis Freeman Today's Date: 03/31/2024 Missed Treatment Time and Reason Missed Treatment Reason: Patient ill (Comment) Family/Caregiver Present: Yes Orders received for initial OT eval, chart reviewed and case discussed with Abigail KIM. RN requesting to hold tx at this time as pt hypotensive with MAPs dropping into 40s overnight. Pt now on levophed and relying on it 2/2 hypotensive without. OT to continue to follow for eval as medically appropriate. Benjamin Hopson OT * Alexia Vargas, PT - 03/31/2024 8:30 AM CDT Encounter Note Patient Name: Elvis Freeman Today's Date: 03/31/2024 Missed Treatment Time and Reason PT orders received. RN requested to defer PT eval today due to pt hypotensive w/ MAPs 40s and dependent on levo drip. PT will follow up when medically appropriate. Alexia Vargas PT * Lisbet GomezD - 03/31/2024 7:26 AM CDT Vancomycin Dosing and Monitoring Protocol - Initial Consult Note Consulting Physician: Alexia Indication for Vancomycin: Bloodstream Infection Goal Trough: 10-20 Vancomycin Start Date: 03/31/24 Duration: 7 days 63 y.o. female Weight: 85.9 kg (189 lb 6 oz) [place] body weight: 57 kg (125 lb 10.6 oz) Adjusted ideal body weight: 68.5 kg (150 lb 15.5 oz) Estimated Creatinine Clearance: 23.5 mL/min (A) (by C-G formula based on SCr of 2.68 mg/dL (H)). Lab Results Component Value Date Creatinine Lvl 2.68 (H) 03/31/2024 Creatinine Lvl 3.22 (H) 03/30/2024 Creatinine Lvl 3.26 (H) 03/30/2024 Creatinine Lvl 3.75 (H) 03/30/2024 Creatinine Lvl 4.62 (H) 03/30/2024 Creatinine Lvl 4.62 (H) 03/30/2024 Creatinine Lvl 5.88 (H) 03/29/2024 Lab Results Component Value Date MRSA by PCR Negative 03/28/2024 Laboratory Data and Vancomycin Dosing: Lab Results Component Value Date Vancomycin Lvl 30.2 03/29/2024 Assessment and Plan: Patient is receiving CRRT. Patient is currently on vancomycin 750 mg IV q12h. Plan to draw a level on 04/01 @1730 (trough level before 3rd maintenance dose). MRSA PCR is not indicated Thank you for allowing us to participate in the care of this patient. We will continue to monitor and adjust vancomycin therapy as needed. * Madyson Sutton MD - 03/31/2024 6:30 AM CDT CCU Progress Note Admission Date: 03/27/2024 CCU Day: 4 Problem List Principal Problem: ST elevation myocardial infarction (STEMI) of inferior wall (HCC) Active Problems: Heart block Hyperglycemia due to diabetes mellitus (CMS/HCC) (HCC) On mechanically assisted ventilation (CMS/HCC) (HCC) Fall GUILHERME (acute kidney injury) (HCC) Acute respiratory alkalosis Anemia of chronic disease Toxic metabolic encephalopathy Acute hypoxemic respiratory failure (HCC) Atelectasis Cardiogenic shock (HCC) Severe sepsis (HCC) Shock liver Hyperkalemia Pleural effusion, bilateral Adrenal nodule (HCC) Assessment & Plan Ms. Freeman is a 63-year-old female presented by EMS after being found down and unresponsive by family and determined to be in complete heart block, now s/p placement of temporary pacer -- CHB/ECG changes concerning for STEMI - s/p Temp Pacer, [facility] showed 100% RCA occlusion s/p PCI with HARI x1 to mid RCA (via R Fem access). Changes - 03/31/24: - Started on levo gtt overnight for hypotension, attempting to wean today - A-line placed and BSUS with plethoric IVC 03/30 ON; concern for sepsis, abx broadened - Repeat TTE ordered - s/p CRRT initation 03/29 - Transvenous pacer removed 03/28 - Extubated 03/28 Cardiovascular: #STEMI s/p PCI with HARI to mid RCA (100% RCA occlusion) #CAD #Complete Heart Block - EP to evaluate for permanent pacemaker - EKG now paced - troponin initially 1846 > 2205 > 8000 -Patient s/p PCI with HAIR, currently HDS and extubated 03/28, loaded with Brilinta/Aspirin during procedure -Today, patient denies any current symptoms Plan -Continue ASA 81, Brilinta 90mg daily -Holding Statin for now given elevated LFT's, will resume when resolved -Cont to trend trop - Repeat TTE ordered Neurology: - Pain control: Tylenol prn - Fall precautions - CT head negative. Respiratory: Acute respiratory failure Pulmonary edema - Extubated 03/28 - Continue to monitor respiratory status, wean O2 as able - Aspiration precautions -CTM Gastroenterology: #Transaminitis - Likely shock liver - Nutrition, heart healthy diet - PUD ppx - BM Plan: -Trend LFT's Renal: #GUILHERME on CKD? - Cr 2.75, unknown baseline - monitor UOP - pt anuric -Cr uptrending, with urine output decreasing - Renal US Bilateral renal parenchymal disease. - nephrology consulted, initated CRRT 03/29 Plan: - Urine Lytes, Urine Protein/Creatinine pending - CRRT per nephrology - monitor urine output Infectious Disease: #Persistent Fever, concern for Sepsis #Leukocytosis #Lactic acidosis, improved - Afebrile since 03/28 2000 - Lactic acid 5.32 -> 2.34 -> 1.33 - Started Vanc overnight - continue kimberly Hematology: #Anemia - family reports no hx - Hb 8.0 yesterday - Hb 7.1, after PCI - no signs of bleeding - Hb 03/29 6.8 > transfused 1 U pRBC, responded appropriately Plan -CTM -Trend CBC - Follow-up Iron studies (send out lab 2-3 days) - Will transfuse to keep Hgb >7.0 Endocrinology: - on home insulin +/- metformin - Goal BS: 140-180 - glucose checks q4 - A1c 10.4 - TSH 0.914 Plan: -Glargine 10u daily -SSI -CTM DVT PPX: Heparin SubQ PUD PPX : Protonix Diet: Heart healthy PT/OT indicated: consulted Lines: Peripheral IV x 2, G tube, Guevara Catheter Guevara: day 1 Code status: FULL Dispo: pending clinical stablility Contact: see separate note for contact info Patient staffed with attending physician, MD Madyson Stauffer MD Internal Medicine | PGY-1 [facility] | [facility] Subjective Overnight, patient hypotensive MAPs in 40s and was started on levo gtt. Lactic acid was elevated to 5.23, bcx were drawn, and vanc was added. POCUS showing plethoric IVC CRRT continue to run. Patient was asymptomatic at the time. This morning, arousable and denies chest pain, SOB, other pain. Objective Vital Signs Current: Visit Vitals BP 111/64 Pulse 91 Temp 36.7 ?C (98 ?F) (Oral) Resp 20 24 Hour: Vitals: 03/31/24 0530 03/31/24 0545 03/31/24 0600 03/31/24 0615 BP: Pulse: 93 93 91 91 Resp: 20 20 20 Temp: SpO2: 95% 96% 93% 92% Intake/Output: I/O last 3 completed shifts: In: 510 (5.9 mL/kg) [IV Piggyback:510] Out: 370 (4.3 mL/kg) [Other:370] Weight: 85.7 kg Intake/Output Summary (Last 24 hours) at 03/31/2024 0630Last data filed at 03/31/2024 0400 Gross per 24 hour Intake 1110 ml Output 310 ml Net 800 ml Net intake/output since admission: Net IO Since Admission: -76.65 mL [03/31/24629] PHYSICAL EXAM General Appearance: no acute distress, no pallorHEENT: Extra ocular movements intact, no scleral icterus, mucous membrane moist, external ears normal Neck: Supple, FROM Lungs: respiratory effort normal, CTA bilaterally, no wheezes/rales/rhonchi Heart: Regular rate and regular rhythm, no murmur Abdomen: soft, non-tender, non-distended MSK/Extremities: No edema, pulses 2+. No obvious deformity. Skin: No lesions, no rash. No jaundice. CRRT running at [facility] site Neurologic: AOx3, no focal deficits, speech clear Psych: Mood congruent affect, responds appropriately to questions. SCHEDULED HOSPITAL MEDICATIONSaspirin, 81 mg, Oral, Daily [Held by provider] atorvastatin, 80 mg, Oral, Daily calcium gluconate, 2 g, Intravenous, Once gabapentin, 100 mg, Oral, q8h heparin, 5,000 Units, Subcutaneous, q8h insulin glargine, 10 Units, Subcutaneous, q PM lidocaine, 1 patch, Apply externally, Daily meropenem, 500 mg, Intravenous, q8h norepinephrine, , , pantoprazole, 40 mg, Intravenous, q24h DIRK polyethylene glycol (PEG) 3350, 17 g, Oral, Daily sennosides, 2 tablet, Oral, q12h DIRK sodium chloride, 500 mL, Intravenous, Once ticagrelor, 90 mg, Oral, q12h DIRK vancomycin, 2,250 mg, Intravenous, Once PRN Medications:PRN medications: acetaminophen, calcium chloride OR calcium chloride, dextrose, dextrose, glucagon, insulin lispro, magnesium sulfate OR magnesium sulfate, norepinephrine, oxyCODONE, potassium & sodium phosphates, potassium chloride OR Potassium chloride, potassium phosphate OR potassium phosphate OR potassium phosphate, [COMPLETED] Insert peripheral IV AND [COMPLETED] Saline lock IV AND sodium chloride, [COMPLETED] Insert peripheral IV AND [COMPLETED] Saline lock IV AND sodium chloride, sodium phosphates 15 mmol in sodium chloride 0.9 % 100 mL IVPB OR sodium phosphates 30 mmol in sodium chloride 0.9 % 100 mL IVPB OR sodium phosphates 45 mmol in sodium chloride 0.9 % 100 mL IVPB, Pharmacy to dose vancomycin AND Vancomycin Pharmacy Dosing Drips: norepinephrine, 2-70 mcg/min, Last Rate: Stopped (03/31/24 0600) physiological irrigating solution, 2,500 mL/hr LABSResults from last 7 days Lab Units 03/31/2441303/30/24225603/30/24215203/30/24202303/30/2430003/29/24 0857 WBC 10*3/uL 19.54* -- -- -- 20.47* 21.07* POC HEMOGLOBIN, VENOUS g/dL -- 8.7* 8.9* < > -- -- HEMOGLOBIN g/dL 8.4* -- -- -- 8.5* 9.7* MCV fL 82.7 -- -- -- 83.3 87.9 < > = values in this interval not displayed. Results from last 7 daysLab Units 03/31/2441303/30/24225603/30/24215203/30/24202303/30/2430003/29/24 0857 WBC 10*3/uL 19.54* -- -- -- 20.47* 21.07* POC HEMOGLOBIN, VENOUS g/dL -- 8.7* 8.9* < > -- -- HEMOGLOBIN g/dL 8.4* -- -- -- 8.5* 9.7* MCV fL 82.7 -- -- -- 83.3 87.9 < > = values in this interval not displayed. Results from last 7 daysLab Units 03/31/2442403/31/2441303/31/2415603/30/24202303/30/24200803/30/24 1258 POC SODIUM, VENOUS -- -- -- < > -- -- POC SODIUM, ARTERIAL mEq/L 135 -- 133* -- -- -- SODIUM mEq/L -- 138 -- -- 138 | 136 133* POC POTASSIUM, VENOUS -- -- -- < > -- -- POC POTASSIUM, ARTERIAL mEq/L 4.5 -- 4.8 -- -- -- POTASSIUM mEq/L -- 4.6* -- -- 5.4* | 5.1* 5.2* POC CHLORIDE, VENOUS -- -- -- < > -- -- POC CHLORIDE mEq/L 104 -- 104 -- -- -- CHLORIDE mEq/L -- 106 -- -- 107 | 105 104 CO2 mEq/L -- 21.7 -- -- 22.3 | 21.4 18.0* BUN mg/dL -- 31* -- -- 34* | 35* 35* PHOSPHORUS mg/dL -- 3.9 -- -- 3.9 4.5 < > = values in this interval not displayed. Results from last 7 daysLab Units 03/31/2441303/30/24 0301 03/29/24126 AST U/L 3,764* 507* 72* ALT U/L 2,544* 639* 110* Results from last 7 daysLab Units 03/31/2441303/29/2412603/27/24 0328 INR 1.99* 1.41* 1.20* PROTIME Seconds 22.9* 17.5* 15.5* PTT Seconds 38.2* 38.5* 30.1 No lab exists for component: "APH", "APCO2", "APO2"No lab exists for component: "POCGLU" Microbiology:No results found for the last 90 days. OTHER DATA Radiology Review:US upper extremity venous doppler right Result Date: 03/30/2024 EXAM: US RIGHT UPPER EXTREMITY VENOUS DOPPLER DATE: 03/30/2024 11:30 INDICATION: swollen painful limb ADDITIONAL INFORMATION: None. COMPARISON: None. TECHNIQUE: Multiplanar grayscale, color Doppler, and spectral Doppler ultrasound of the right upper extremity veins. Exam quality limited by overlying hardware/bandages and positioning. FINDINGS: Right Upper Extremity Veins: Internal Jugular: Obscured by overlying hardware. Subclavian: Obscured by positioning. Axillary: Patent without thrombus. Brachial: Patent without thrombus. Basilic: Patent without thrombus. Cephalic: Patent without thrombus. Other: None. 1. No deep venous thrombosis (DVT) in the visualized veins of right upper extremity. 2. No superficial vein thrombosis. This report was dictated by a Mobile Engineer/Fellow/KENYON: Oliver Segundo MD 03/30/2024 12:48 I have personally reviewed the images as well as the interpretation and agree with the findings. Dictation Date/time: 03/30/2024 12:45 Electronically Signed by: Dontae Rebolledo MD 03/30/2024 14:06 Cosigned by Yakov Cuadra MD at 03/31/2024 5:12 PM CDT Associated attestation - Yakov Cuadra MD - 03/31/2024 5:12 PM CDT The patient was seen and examined with the resident. The relevant lab results, imaging and EKGs were personally reviewed, and the medications were reconciled. I agree with above mentioned assessment and plan. Total amount of critical care time spent throughout the day excluding procedural time was - 35 minutes. The patient remain critically ill, and requires ICU level of care. -- No fevers, but had mild chest discomfort on dialysis - repeat ecg unchanged DENNYS since presentation, trop flat; CP resolved today but now on levo for BP support -- Sinus tachycardic today -- ARF - renal consult - on dialysis now -- Continue GI and DVT prophylaxis per ICU protocol -- Appreciate PCCM input on non-cardiac critical issues Patient Active Problem ListDiagnosis Date Noted ST elevation myocardial infarction (STEMI) of inferior wall ([facility]) 03/28/2024 Heart block 03/27/2024 Hyperglycemia due to diabetes mellitus ([facility]/HCC) ([facility]) 03/27/2024 On mechanically assisted ventilation (CMS/HCC) ([facility]) 03/27/2024 Fall 03/27/2024 GUILHERME (acute kidney injury) ([facility]) 03/27/2024 Acute respiratory alkalosis 03/27/2024 Anemia of chronic disease 03/27/2024 Toxic metabolic encephalopathy 03/27/2024 Acute hypoxemic respiratory failure ([facility]) 03/27/2024 Atelectasis 03/27/2024 Cardiogenic shock ([facility]) 03/27/2024 Severe sepsis ([facility]) 03/27/2024 Shock liver 03/27/2024 Hyperkalemia 03/27/2024 Pleural effusion, bilateral 03/27/2024 Adrenal nodule ([facility]) 03/27/2024 * Doug Hale MD - 03/31/2024 5:17 AM CDT RN reported hypotension on cuff BP MAP low 50s. Patient clinically unchanged without chest pain, SOB. Lactate elevated 5.3. Arterial line inserted confirming hypotension requiring levophed 6 initially. EKG with persistent inferior ST changes. POCUS with LVEF appearing normal, RV systolic function normal, IVC >2. Cm with less than 50% respiratory variation, no pericardial effusion. CRRT running even. Lower extremities warm. Troponin downtrending. Concern for vasodilation from sepsis of unclear given persistent leukocytosis, fevers earlier in admission prior to CRRT. - Continue levophed and wean as able for MAP >65 - broaden antibiotics, follow up blood cultures drawn today - continue CRRT * Andrew Morrow MD - 03/31/2024 12:15 AM CDT Ccu team was called to bedside at 2300 for MAPs of 40s. Pt was in no acute distress complaining of only fatigue. POCUS was performed that showed a plump IVC so little concern for hypovolemia. Vitals otherwise stable low cf sepsis, pt is on meropenem. CRRT running at this time, a plausible culprit of the soft MAPs. Repeat formal echo ordered to rule out any obstructive process but pt started on levo titrated down to 6mcg of levo. Pt consented for lauren with successful placement of a line by CCU night fellow. Pt normotensive now on levo doing well with no complaints. Will ctm. * Jacky Echevarria-Tayo Shay MD - 03/30/2024 3:45 PM CDT [facility] ICU Note This patient was seen with FISH PROCESSING SUPERVISOR Brent and and bedside RN as part of a multidisciplinary team. Briefly this is a 63 y/o female who presented after a fall due to CHB related to inferior STEMI. 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 -HFmrEF - LVEF 45-50%; significant MAC with mild MS -elevated liver enzymes - suspect related to bradyarrhythmias -possible sepsis -delirium -type 2 DM with hyperglycemia (A1c of ~10) -anemia - likely nutritional and chronic disease with some component of blood loss acutely -history of fall -history of cholecystectomy -history of adrenal nodule Daily Plan -currently on DAPT; statin on hold (due to increasing liver enzymes) -continue to monitor for bradyarrythmias -continue to monitor LFTs -continued on CRRT; consider iHD trial tomorrow -plan to start basal insulin; narrow HDSSI to LDSSI -antibiotics started for presumed sepsis (today is day 5) - possible aspiration ICU Quality Review -ICU day: 3 days -mechanically ventilated: no -restraints indicated: no -PT/OT: ordered -DVT prophylaxis: chemical prophylaxis -GI prophylaxis: yes -central Lines: RIJ dialysis line -arterial Lines: none -devices: CRRT -guevara: no -tubes/drains: none -pressure injury: none I spent a total of 35 minutes caring for this patient including reviewing the patients chart, obtaining relevant history from the patient, performing a physical examination, interpreting date and coordinating care with consultants. This is exclusive to any procedures or teaching. Vitals: Visit Vitals BP 103/59 Pulse 97 Temp 36.7 ?C (98 ?F) (Oral) Resp 20 Ht 1.651 m (5' 5") Wt 85.7 kg (189 lb) SpO2 98% BMI 31.45 kg/m? Smoking Status Unknown BSA 1.98 m? Tube/Drain Output: Output by Drain (mL) 03/28/24 0700 - 03/28/24 1859 03/28/24 1900 - 03/29/24 0659 03/29/24 07 - 03/29/24 1859 03/29/24 1900 - 03/30/24 0659 03/30/24 0700 - 03/30/24 1545 Patient has no LDAs of requested type attached. Labs: Last ABG Results from last 7 days Lab Units 03/29/24 1131 03/29/24 0204 03/27/24 1556 POC PH, ARTERIAL 7.42 7.37 7.40 POC PCO2, ARTERIAL mmHg 30* 35 46* POC PO2, ARTERIAL mmHg 71* 73* 119 POC HCO3, ARTERIAL mMol/L 20* 20* 29* POC SO2, ARTERIAL (CALC) % 94.4* 94.0* 98.6 POC SO2, ARTERIAL % 96.7 95.4 98.3 POC BASE EXCESS, ARTERIAL mMol/L -4* -5* 3* Last CBC ResultLast Lab Result Automated Differential Collection Time: 03/30/24 3:01 AM Result Value Ref Range Segs % 85.9 (H) 40.9 - 70.4 % Lymphs % 6.9 (L) 15.3 - 46.4 % Monos % 6.1 3.9 - 10.9 % Eos % 0.1 (L) 0.3 - 4.1 % Basos % 0.1 (L) 0.2 - 1.3 % Immature Grans % 0.9 0.1 - 1.0 % Segs # 17.56 (H) 2.03 - 7.09 10*3/uL Lymphs # 1.42 1.09 - 3.65 10*3/uL Monos # 1.25 (H) 0.27 - 0.78 10*3/uL Eos # 0.02 0.02 - 0.33 10*3/uL Basos # 0.03 0.01 - 0.09 10*3/uL Imm Grans # 0.19 (H) 0.01 - 0.07 10*3/uL Complete Blood Count Collection Time: 03/30/24 3:01 AM Result Value Ref Range WBC 20.47 (H) 4.15 - 10.55 10*3/uL RBC 3.23 (L) 3.74 - 5.22 10*6/uL NRBC % 0.2 (H) 0 /100 WBC Hgb 8.5 (L) 10.8 - 14.8 g/dL Hct 26.9 (L) 33.9 - 45.4 % MCV 83.3 77.8 - 97.5 fL MCH 26.3 24.9 - 32.6 pg MCHC 31.6 30.1 - 35.0 g/dL RDW - SD 47.9 37.6 - 49.1 fL Plt Count 511 (H) 191 - 422 10*3/uL MPV 11.6 9.0 - 12.6 fL Last BMP or CMP ResultLast Lab Result Basic Metabolic Panel Collection Time: 03/30/24 12:58 PM Result Value Ref Range Glucose Lvl 231 (H) 70 - 99 mg/dL BUN 35 (H) 9 - 23 mg/dL Creatinine Lvl 3.75 (H) 0.55 - 1.02 mg/dL Sodium Lvl 133 (L) 136 - 145 mEq/L Potassium Lvl 5.2 (H) 3.4 - 4.5 mEq/L Chloride Lvl 104 98 - 107 mEq/L CO2 Lvl 18.0 (L) 20.0 - 31.0 mEq/L Anion Gap 16.2 10.0 - 20.0 mEq/L Calcium Lvl 8.9 8.3 - 10.6 mg/dL eGFR 13 (L) >60 mL/min/1.73m2 Culture ResultsNo results found for the last 90 days. Bowel Movements:No data recorded Ventilator Settings Active Medications physiological irrigating solution, 2,500 mL/hr aspirin, 81 mg, Oral, Daily[Held by provider] atorvastatin, 80 mg, Oral, Daily gabapentin, 100 mg, Oral, q8h heparin, 5,000 Units, Subcutaneous, q8h insulin glargine, 10 Units, Subcutaneous, q PM lidocaine, 1 patch, Apply externally, Daily meropenem, 500 mg, Intravenous, q8h pantoprazole, 40 mg, Intravenous, q24h DIRK polyethylene glycol (PEG) 3350, 17 g, Oral, Daily sennosides, 2 tablet, Oral, q12h DIRK sodium chloride, 500 mL, Intravenous, Once ticagrelor, 90 mg, Oral, q12h DIRK * Vijay Kurtz RN - 03/30/2024 11:17 AM CDT CASE MANAGEMENT ROUTINE DISCHARGE PLAN NOTE LOS: 3 Barriers to Discharge: CRRT. Pending EP recs, possible PPM DISCHARGE PLAN A: Home DISCHARGE PLAN B: none TISH: 3-5 days * Ирина Kennedy NP - 03/30/2024 10:11 AM CDT Hospital Course: Elvis Freeman ( 1960) is a 64 year old female who was brought in by EMS after being found down and unresponsive by family and determined to be in complete heart block with Inferior STEMI, now s/p placement of temporary pacer and intubated for airway protection. LHC revealed 100% occlusion of mid RCA, s/p stent x 1 on 03/27 Interval events: On CRRT throughout the night. Fairly net even volume status Review of Systems All other systems reviewed and are negative. Physical Exam: Constitutional: General: She is not in acute distress. Appearance: Normal appearance. Cardiovascular: Rate and Rhythm: Normal rate. Rhythm irregular. Pulses: Normal pulses. Pulmonary: Effort: Pulmonary effort is normal. No respiratory distress. Breath sounds: Normal breath sounds. Abdominal: General: Bowel sounds are normal. There is no distension. Palpations: Abdomen is soft. Tenderness: There is no abdominal tenderness. Skin: General: Skin is warm and dry. Capillary Refill: Capillary refill takes less than 2 seconds. Neurological: General: No focal deficit present. Mental Status: She is alert and oriented to person, place, and time. Mental status is at baseline. BP 121/68 | Pulse 104 | Temp 36.5 ?C (97.7 ?F) (Oral) | Resp (!) 32 | Ht 1.651m (5' 5") | Wt 85.7 kg (189 lb) | SpO2 95% | BMI 31.45 kg/m? aspirin, 81 mg, Oral, Daily[Held by provider] atorvastatin, 80 mg, Oral, Daily heparin, 5,000 Units, Subcutaneous, q8h insulin glargine, 10 Units, Subcutaneous, q PM lactated Ringer's, 500 mL, Intravenous, Once meropenem, 500 mg, Intravenous, q12h pantoprazole, 40 mg, Intravenous, q24h DIRK polyethylene glycol (PEG) 3350, 17 g, Oral, Daily sennosides, 2 tablet, Oral, q12h DIRK sodium chloride, 500 mL, Intravenous, Once ticagrelor, 90 mg, Oral, q12h DIRK norepinephrine, 5-70 mcg/minphysiological irrigating solution, 2,500 mL/hr Encounter Date: 03/27/24XR chest 1 view Narrative EXAM: XR CHEST 1 VIEW DATE: 03/29/2024 14:00 INDICATION: Line Placement COMPARISON: Same day chest radiograph 01: 38 hours TECHNIQUE: AP chest. Number of images: 1. ImpressionLines, tubes and hardware: Interval placement of a right IJ CVC with its tip projecting over cavoatrial junction. Lungs and pleura: Low lung volumes are present, with subsegmental atelectasis. Slight blunting of the bilateral costophrenic sulci is present, right more than left. No pneumothorax is identified. Heart and mediastinum: The heart size is normal. Vascular calcifications are present at the aorta. Bones and soft tissues: Regional skeleton is unchanged. 1.This report was dictated by a Mobile Engineer/Fellow/KENYON: Hermann Wilkins RES, MD 03/29/2024 15:51 I have personally reviewed the images as well as the interpretation and agree with the findings. Dictation Date/time: 03/29/2024 15:46 Electronically Signed by: Mushtaq Lopez MD 03/29/2024 16:21 Transthoracic echo (TTE) complete Result Date: 03/28/2024 Left ventricle is normal in size with mildly reduced global systolic function and an estimated ejection fraction of 45-50%, by the method of discs. Diastolic function is indeterminate. Right ventricle is normal in size and systolic function. Left atrium appears normal in size. Right atrium is normal in size Aortic valve is trileaflet and sclerotic with normal function. There is mild mitral valve stenosis and a heavily calcified annulus. The transvalvular mean gradient is 4 mmHg, at a HR of 90 bpm. and the MV area by continuity eq is 1.5 cm2.No significant mitral valve regurgitation is observed. Tricuspid valve leaflets are normal. There is trace tricuspid regurgitation. Unable to estimate right ventricular systolic pressure due to an insufficient TR jet. Pulmonic valve appears normal in structure with trace regurgitation. Aortic root is normal in diameter. Inferior vena cava is normal in diameter with >50% respiratory variation in size. No pericardial effusion is seen. No prior study is currently available for comparison. Principal Problem: ST elevation myocardial infarction (STEMI) of inferior wall (HCC) Active Problems: Heart block Hyperglycemia due to diabetes mellitus (CMS/HCC) (HCC) On mechanically assisted ventilation (CMS/HCC) (HCC) Fall GUILHERME (acute kidney injury) (HCC) Acute respiratory alkalosis Anemia of chronic disease Toxic metabolic encephalopathy Acute hypoxemic respiratory failure (HCC) Atelectasis Cardiogenic shock (HCC) Severe sepsis (HCC) Shock liver Hyperkalemia Pleural effusion, bilateral Adrenal nodule (HCC) Plan: Neuro/Psych:-Mentation intact -Start gabapentin (renally dosed) for neuropathy -CT brain showing no acute abnormality. CT cervical spine also showing no fracture or traumatic malalignment -Pain control with Tylenol PRN -Continue delirium precautions and adherence to sleep-wake cycle. CV:-s/p temp pacer 03/27 and LHC with PCI x 1 to RCA on 03/27. Subsequent removal of temp pacer and patient redeveloped 2nd and 3rd degree heart block. Transcutaneous pacer pads, dopamine, and atropine all at bedside but currently patient is asymptomatic. EP following. -Continue aspirin and Brilinta. Statin held owing to elevated LFTs -ECHO showing EF 45%, normal RV size and systolic function -RUE US pending for right arm swelling Resp:-Supplemental O2 via nasal cannula. -CT chest showing no acute abnormalities with trace pleural effusions, atelectasis -Duonebs prn -Continue volume expansion protocol and incentive spirometry GI/Nutrition: -Heart diet -Protonix ppx -Continue bowel regimen and titrate for 1-2 BMs daily -CT abdomen and pelvis showing no acute traumatic abnormalities and heterogeneous left adrenal nodule measuring 3.2 cm -Elevated LFTs likely 2/2 ischemia from CHB or ischemia. Trend Renal/Electrolytes:-GUILHERME could be 2/2 ischemia in the setting of CHB. Renal US shows chronic parenchymal disease. Nephrology consulted. Now on CRRT -Monitor UOP with strict I's/O's -Trend BUN/Cr -Avoid nephrotoxic agents -Replace electrolytes as needed Endo: -Hgb A1c 10.4 -Continue strict glycemic control with Glargine 10 units daily and high dose sliding scale insulin to keep blood glucose 100-180 -Would recommend endocrine consult Heme/Onc:-Monitor for bleeding and coagulopathies -Maintain Hgb > 7 and Platelets > 10k ID: -Continues on empiric Merrem day 2 -Procal elevated. Cultures pending. -MRSA nares, strep pna, and legionella all negative -Respiratory culture pending -Prior to Merrem received 2 days of Vancomycin and Cefepime Musculoskeletal/Skin: -Continue wound care and sacral decubitus prevention -PT/OT and out of be to chair daily Prophylaxis:-DVT ppx: Heparin -PUD ppx: Protonix Vascular/ access:Peripheral IV 03/27/24 Right Antecubital (Active) Peripheral IV 03/28/24 Anterior;Distal;Left Wrist (Active) Hemodialysis Cath Triple Lumen 03/29/24 Right Non-tunneled catheter Internal jugular vein (Active) Compliance:Restraints: None Indwelling Guevara Catheter: None Central Venous Access: Needed for HD Arterial Access: None Code Status: Full Disposition: CCU I spent a total of 25 minutes of critical care time with this patient independently, not including procedure time, then plan was discussed with ME PCCM Attending Dr. Jaspal Kennedy, MSN, AGACNP-[facility] [place] #[id number] Division of Pulmonary Critical Care MedicineSouth [facility] / [facility] [email or web address] Cosigned by Jacky Shay MD at 03/30/2024 11:01 PM CDT * Jennifer Watson, PT - 03/30/2024 8:58 AM CDT Encounter Note Patient Name: Elvis Freeman Today's Date: 03/30/2024 Missed Treatment Time and Reason Orders received, chart reviewed, per discussion with RN pt is impulsive and unsafe for mobility - receiving CRRT. PT will hold and follow up this weekend to re-assess cognition, behavior, and medica status. Jennifer Watson PT, DPT * Benjamin Hopson OT - 03/30/2024 8:45 AM CDT OT Encounter Note Patient Name: Elvis Freeman Today's Date: 03/30/2024 Missed Treatment Time and Reason Missed Treatment Reason: Patient ill (Comment) Orders received for initial OT eval, chart reviewed and case discussed with RNSully. RN requesting to hold tx at this time as pt is impulsive and unsafe for OOB mobility while on CRRT. OT to hold and follow this weekend for eval as appropriate medically, cognitively, and behaviorally Benjamin Hopson OT * Reza Perkins MD - 03/30/2024 7:50 AM CDT ME Nephrology Progress Note Chief Complaint: had concerns including Fall. Nephrology following for: Acute Kidney Injury Assessment & Plan: Patient Elvis Freeman is a 63 y.o. female with PMHx significant for has no past medical history on file. who was admitted 03/27/2024 2:14 AM for Heart block [I45.9]. Nephrology consulted for the evaluation and management of: GUILHERME, anuria Recommendations: - Will continue CRRT for clearance for now, volume goal of net even - Continue strict I/Os - Infectious work-up and management per CCU and PCCM - Follow up iron panel - Send urine electrolytes and osmolality if able to collect urine GUILHERME Acute renal failure - Likely ischemic ATN in setting of hemodynamic instability, sepsis, and possible underlying chronic kidney disease - Unknown Cr baseline - WBC 20.47 - Cr 2.77 on admission, up to 5.22 on 03/29 - BUN 41 -> 53 -> 48 - Renal U/S showed bilateral parenchymal disease - UA on admission: pH 6.0, spec grav 1.018, 500 glucose, >300 protein, small blood, 4 RBC, 6 WBC - Guevara in place, 13cc on bladder scan per RN at bedside - Little to no UOP over 03/28-03/29 - Pending urine electrolytes - IVC collapsible on TTE 03/27 and bedside POCUS 03/29 - On CRRT as of 03/29 Volume status:- Some slight signs of volume overload with congestive hepatopathy, pleural effusions, however IVC collapsible on bedside POCUS - Acute rise in LFTs c/w apparent shock liver - Lactate 2.08 - Tachycardia w/ HR in 100s (previously in 40s-60s in [facility]) - Little to no UOP over 03/28-03/29 - Now on CRRT, goal net even - I/O: -200cc 03/29 Electrolytes:Hyperphosphatemia - K 4.6, phos 4.3, Ca 8.8 - No current need for phosphate binder, will CTM Acid-Base:- ABG today 7.42 / 30 / 71 / 20 - CO2 19.3 Normocytic anemia:- Hgb 6.8 -> 9.7 post-transfusion 03/28 - Anemia workup pending - Ferritin 107.3 Plans explained to patient, all questions answered. [facility]za Perkins [facility] 20[facility] 7:50 AM --Subjective: No acute events overnight. Patient states her chest is sore. She denies other symptoms aside from mild SOB. Objective: Vitals:03/30/24 0300 03/30/24 0400 03/30/24 0500 03/30/24 0600 BP: 125/61 135/75 134/76 98/53 Pulse: 103 104 104 107 Resp: (!) 31 (!) 32 (!) 30 23 Temp: 37 ?C (98.6 ?F) SpO2: 96% 95% 94% 99% Intake/Output Summary (Last 24 hours) at 03/30/2024 0750Last data filed at 03/30/2024 0300 Gross per 24 hour Intake -- Output 200 ml Net -200 ml Physical Exam:Constitutional: Appearance: She is ill-appearing. HENT: Head: Normocephalic and atraumatic. Right Ear: External ear normal. Left Ear: External ear normal. Cardiovascular: Rate and Rhythm: Normal rate and regular rhythm. Pulses: Normal pulses. Heart sounds: Normal heart sounds. Pulmonary: Effort: Pulmonary effort is normal. No respiratory distress. Breath sounds: Normal breath sounds. Abdominal: General: There is no distension. Palpations: Abdomen is soft. Tenderness: There is no abdominal tenderness. Musculoskeletal: General: Normal range of motion. Right lower leg: Edema (trace pitting edema bilaterally) present. Left lower leg: Edema (trace pitting edema bilaterally) present. Skin: General: Skin is warm. Coloration: Skin is not jaundiced. Findings: No bruising. Neurological: General: No focal deficit present. Mental Status: She is oriented to person, place, and time. Dialysis Access: Right IJ Medications:Scheduled: aspirin, 81 mg, Oral, Daily [Held by provider] atorvastatin, 80 mg, Oral, Daily heparin, 5,000 Units, Subcutaneous, q8h meropenem, 500 mg, Intravenous, q12h pantoprazole, 40 mg, Intravenous, q24h DIRK polyethylene glycol (PEG) 3350, 17 g, Oral, Daily sennosides, 2 tablet, Oral, q12h DIRK ticagrelor, 90 mg, Oral, q12h DIRK Infusions:norepinephrine, 5-70 mcg/min physiological irrigating solution, 2,500 mL/hr Data: Labs and imaging reviewed. Lab Results Component Value Date BUN 48 (H) 03/30/2024 BUN 48 (H) 03/30/2024 Results from last 7 daysLab Units 03/30/24 0301 03/29/24 1639 03/29/24 0127 CREATININE mg/dL 4.62* | 4.62* 5.88* 5.22* Electrolytes:LYTES - Na/K/Cl/CO2: 138, 138/4.6*, 4.6*/105, 105/19.3*, 19.3* (03/30 030) Lab ResultsComponent Value Date Calcium Lvl 8.8 03/30/2024 Calcium Lvl 8.8 03/30/2024 Phosphorus Lvl 4.3 03/30/2024 Lab ResultsComponent Value Date Hgb 8.5 (L) 03/30/2024 Cosigned by Shashank Pizano MD at 03/30/2024 11:33 PM CDT Associated attestation - Shashank Pizano MD - 03/30/2024 11:33 PM CDT The patient is critically ill with dialysis-dependent ATN in the setting of cardiogenic shock, acute hypoxic respiratory failure requiring mechanical ventilation, and acute metabolic encephalopathy. Continue CRRT for metabolic clearance and volume management I have reviewed the laboratory and radiographic data, discussed the patientwith the Fellow, and agree with the exam, assessment and plan as documented. Total CCT: > 35 minutes, including assessment of serial labs, review of vitals and I/O, review of meds, monitoring/adjusting CRRT prescription, evaluation of the patient, and discussing/coordinating care with the primary team and nurse. Merrill [place] Division of Renal Diseases and Hypertension [facility] | [place] [employer] Contact: [facility] secure chat | [phone] * Jayla Grewal MD - 03/30/2024 6:13 AM CDT CCU Progress Note Admission Date: 03/27/2024 CCU Day: 3 Problem List Principal Problem: ST elevation myocardial infarction (STEMI) of inferior wall (HCC) Active Problems: Heart block Hyperglycemia due to diabetes mellitus (CMS/HCC) (HCC) On mechanically assisted ventilation (CMS/HCC) (HCC) Fall GUILHERME (acute kidney injury) (HCC) Acute respiratory alkalosis Anemia of chronic disease Toxic metabolic encephalopathy Acute hypoxemic respiratory failure (HCC) Atelectasis Cardiogenic shock (HCC) Severe sepsis (HCC) Shock liver Hyperkalemia Pleural effusion, bilateral Adrenal nodule (HCC) Assessment & Plan Ms. Freeman is a 63-year-old female presented by EMS after being found down and unresponsive by family and determined to be in complete heart block, now s/p placement of temporary pacer -- CHB/ECG changes concerning for STEMI - s/p Temp Pacer, LHC showed 100% RCA occlusion s/p PCI with HARI x1 to mid RCA (via R Fem access). Changes - 03/30/24: - s/p CRRT initation 03/29 >> chest pain during session, EKG normal - Tachycardic to 110s this am, still having chest pain >> pending repeat trop and EKG - transvenous pacer removed 03/28 - now looks to be in wenckebach, HR 90s. Will monitor - Extubated 03/28 Cardiovascular: #STEMI s/p PCI with HARI to mid RCA (100% RCA occlusion) #CAD #Complete Heart Block - EP to evaluate for permanent pacemaker - EKG now paced - troponin initially 1846 > 2205 > 8000 -Patient s/p PCI with HARI, currently HDS and extubated today, loaded with Brilinta/Aspirin during procedure -Today, patient denies any current symptoms Plan -Continue ASA 81, Brilinta 90mg daily -Holding Statin for now given elevated LFT's, will resume when resolved Neurology: - Pain control: Tyelenol prn - Fall precautions - CT head negative. Respiratory: Acute respiratory failure Pulmonary edema - Extubated 03/28 - Continue to monitor respiratory status, wean O2 as able - Aspiration precautions -CTM Gastroenterology: #Transaminitis - Likely shock liver - Nutrition, heart healthy diet - PUD ppx - BM Plan: -Trend LFT's Renal: #GUILHERME on CKD? - Cr 2.75, unknown baseline - monitor UOP - pt anuric -Cr uptrending, with urine output decreasing - Renal US Bilateral renal parenchymal disease. - nephrology consulted, initated CRRT 03/29 Plan: - Urine Lytes, Urine Protein/Creatinine pending - CRRT per nephrology - monitor urine output Infectious Disease: #Persistent Fever, concern for Sepsis #Leukocytosis - Afebrile since 03/28 2000 - Started Cefepime 1g Q12H Hematology: #Anemia - family reports no hx - Hb 8.0 yesterday - Hb 7.1, after PCI - no signs of bleeding - Hb 03/29 6.8 > transfused 1 U pRBC, responded appropriately Plan -CTM -Trend CBC - Follow-up Iron studies (send out lab 2-3 days) - Will transfuse to keep Hgb >7.0 Endocrinology: - on home insulin +/- metformin - Goal BS: 140-180 - glucose checks q4 - A1c 10.4 - TSH 0.914 Plan: -SSI -CTM DVT PPX: Heparin SubQ PUD PPX : Protonix Diet: Heart healthy PT/OT indicated: Will consult Lines: Peripheral IV x 2, G tube, Guevara Catheter Guevara: day 1 Code status: FULL Dispo: pending clinical stablility Contact: see separate note for contact info Patient staffed with attending physician, MD Jayla Stauffer MD Internal Medicine | PGY-1 [facility] | [facility] Subjective Patient reporting new symptoms this morning. Denies any current pain. Pt Aox4, resting comfortably in bed. Son at bedside. No questions at this time. Objective Vital Signs Current: Visit Vitals BP 98/53 Pulse 107 Temp 37 ?C (98.6 ?F) (Oral) Resp 23 24 Hour: Vitals: 03/30/24 0300 03/30/24 0400 03/30/24 0500 03/30/24 0600 BP: 125/61 135/75 134/76 98/53 Pulse: 103 104 104 107 Resp: (!) 31 (!) 32 (!) 30 23 Temp: 37 ?C (98.6 ?F) SpO2: 96% 95% 94% 99% Intake/Output: I/O last 3 completed shifts: In: - (0 mL/kg) Out: 200 (2.3 mL/kg) [Urine:200 (0.1 mL/kg/hr)] Weight: 85.7 kg Intake/Output Summary (Last 24 hours) at 03/30/2024 0613Last data filed at 03/30/2024 0300 Gross per 24 hour Intake -- Output 200 ml Net -200 ml Net intake/output since admission: Net IO Since Admission: -876.65 mL [03/30/24 0613] PHYSICAL EXAM General Appearance: no acute distress, no pallorHEENT: Extra ocular movements intact, no scleral icterus, mucous membrane moist, external ears normal Neck: Supple, FROM Lungs: respiratory effort normal, CTA bilaterally, no wheezes/rales/rhonchi Heart: Regular rate and regular rhythm, no murmur Abdomen: soft, non-tender, non-distended MSK/Extremities: No edema, pulses 2+. No obvious deformity. Skin: No lesions, no rash. No jaundice. Neurologic: AOx3, no focal deficits, speech clear Psych: Mood congruent affect, responds appropriately to questions. SCHEDULED HOSPITAL MEDICATIONSaspirin, 81 mg, Oral, Daily [Held by provider] atorvastatin, 80 mg, Oral, Daily heparin, 5,000 Units, Subcutaneous, q8h meropenem, 500 mg, Intravenous, q12h pantoprazole, 40 mg, Intravenous, q24h DIRK polyethylene glycol (PEG) 3350, 17 g, Oral, Daily sennosides, 2 tablet, Oral, q12h DIRK ticagrelor, 90 mg, Oral, q12h DIRK PRN Medications:PRN medications: acetaminophen, calcium chloride OR calcium chloride, dextrose, dextrose, glucagon, insulin lispro, magnesium sulfate OR magnesium sulfate, oxyCODONE, potassium & sodium phosphates, potassium chloride OR Potassium chloride, potassium phosphate OR potassium phosphate OR potassium phosphate, [COMPLETED] Insert peripheral IV AND [COMPLETED] Saline lock IV AND sodium chloride, [COMPLETED] Insert peripheral IV AND [COMPLETED] Saline lock IV AND sodium chloride, sodium phosphates 15 mmol in sodium chloride 0.9 % 100 mL IVPB OR sodium phosphates 30 mmol in sodium chloride 0.9 % 100 mL IVPB OR sodium phosphates 45 mmol in sodium chloride 0.9 % 100 mL IVPB Drips: norepinephrine, 5-70 mcg/min physiological irrigating solution, 2,500 mL/hr LABSResults from last 7 days Lab Units 03/30/24 03003/29/24 0857 03/29/247 WBC 10*3/uL 20.47* 21.07* 21.34* HEMOGLOBIN g/dL 8.5* 9.7* 6.8* MCV fL 83.3 87.9 88.6 Results from last 7 daysLab Units 03/30/24 03003/29/24 0857 03/29/24126 WBC 10*3/uL 20.47* 21.07* 21.34* HEMOGLOBIN g/dL 8.5* 9.7* 6.8* MCV fL 83.3 87.9 88.6 Results from last 7 daysLab Units 03/30/24 0301 03/29/24 1639 03/29/24 1131 03/29/24 0204 03/29/24 0127 03/29/24 0121 03/28/24 2220 POC SODIUM, VENOUS -- -- -- -- -- < > -- POC SODIUM, ARTERIAL mEq/L -- -- 133* < > -- -- -- SODIUM mEq/L 138 | 138 135* -- -- 137 -- -- POC POTASSIUM, VENOUS -- -- -- -- -- < > -- POC POTASSIUM, ARTERIAL mEq/L -- -- 5.0 < > -- -- -- POTASSIUM mEq/L 4.6* | 4.6* 4.5 -- < > 4.5 -- 4.2 POC CHLORIDE, VENOUS -- -- -- -- -- < > -- POC CHLORIDE mEq/L -- -- 105 < > -- -- -- CHLORIDE mEq/L 105 | 105 106 -- -- 106 -- -- CO2 mEq/L 19.3* | 19.3* 20.2 -- -- 19.6* -- -- BUN mg/dL 48* | 48* 63* -- -- 53* -- -- PHOSPHORUS mg/dL 4.3 5.5* -- -- -- -- 6.3* < > = values in this interval not displayed. Results from last 7 daysLab Units 03/30/24 0301 03/29/24 0127 03/28/24 0159 AST U/L 507* 72* 231* ALT U/L 639* 110* 189* Results from last 7 daysLab Units 03/29/24 0127 03/27/24 0328 INR 1.41* 1.20* PROTIME Seconds 17.5* 15.5* PTT Seconds 38.5* 30.1 No lab exists for component: "APH", "APCO2", "APO2"No lab exists for component: "POCGLU" Microbiology:No results found for the last 90 days. OTHER DATA Radiology Review:XR chest 1 view Result Date: 03/29/2024 EXAM: XR CHEST 1 VIEW DATE: 03/29/2024 14:00 INDICATION: Line Placement COMPARISON: Same day chest radiograph 01: 38 hours TECHNIQUE: AP chest. Number of images: 1. Lines, tubes and hardware: Interval placement of a right IJ CVC with its tip projecting over cavoatrial junction. Lungs and pleura: Low lung volumes are present, with subsegmental atelectasis. Slight blunting of the bilateral costophrenic sulci is present, right more than left. No pneumothorax is identified. Heart and mediastinum: The heart size is normal. Vascular calcifications are present at the aorta. Bones and soft tissues: Regional skeleton is unchanged. 1. This report was dictated by a Mobile Engineer/Fellow/KENYON: Hermann Wilkins RES, MD 03/29/2024 15:51 I have personally reviewed the images as well as the interpretation and agree with the findings. Dictation Date/time: 03/29/2024 15:46 Electronically Signed by: Mushtaq Lopez MD 03/29/2024 16:21 Cosigned by Yakov Cuadra MD at 03/30/2024 2:36 PM CDT Associated attestation - Yakov Cuadra MD - 03/30/2024 2:36 PM CDT The patient was seen and examined with the resident. The relevant lab results, imaging and EKGs were personally reviewed, and the medications were reconciled. I agree with above mentioned assessment and plan. Total amount of critical care time spent throughout the day excluding procedural time was - 35 minutes. The patient remain critically ill, and requires ICU level of care. -- No fevers, but had mild chest discomfort on dialysis - repeat ecg and trops-- Sinus tachycardic today -- s/p extubation -- ARF - renal consult - on dialysis now -- Continue GI and DVT prophylaxis per ICU protocol -- Appreciate PCCM input on non-cardiac critical issues Patient Active Problem ListDiagnosis Date Noted ST elevation myocardial infarction (STEMI) of inferior wall ([facility]) 03/28/2024 Heart block 03/27/2024 Hyperglycemia due to diabetes mellitus ([facility]) ([facility]) 03/27/2024 On mechanically assisted ventilation ([facility]) ([facility]) 03/27/2024 Fall 03/27/2024 GUILHERME (acute kidney injury) ([facility]) 03/27/2024 Acute respiratory alkalosis 03/27/2024 Anemia of chronic disease 03/27/2024 Toxic metabolic encephalopathy 03/27/2024 Acute hypoxemic respiratory failure ([facility]) 03/27/2024 Atelectasis 03/27/2024 Cardiogenic shock ([facility]) 03/27/2024 Severe sepsis ([facility]) 03/27/2024 Shock liver 03/27/2024 Hyperkalemia 03/27/2024 Pleural effusion, bilateral 03/27/2024 Adrenal nodule ([facility]) 03/27/2024 * Juana Holcomb PharmD - 03/29/2024 9:43 AM CDT Vancomycin Dosing and Monitoring Protocol - Sign-Off Note The Department of Pharmacy will no longer be managing Vancomycin therapy for this patient because: Therapy is being discontinued Thank you for allowing us to participate in the care of this patient. We will sign off for now. Please re-consult if needed. Juana Holcomb PharmD * Ирина Kennedy NP - 03/29/2024 9:02 AM CDT Hospital Course: Elvis Freeman ( 1960) is a 64 year old female who was brought in by EMS after being found down and unresponsive by family and determined to be in complete heart block with Inferior STEMI, now s/p placement of temporary pacer and intubated for airway protection. LHC revealed 100% occlusion of mid RCA, s/p stent x 1 on 03/27 Interval events: No urine output overnight with worsening creatinine. 500 ml NS given overnight. BSUS IVC 2 to 2.46 cm. One more liter of NS ordered to be given over 4 hours Hgb 6.8. No evidence of bleeding. PRBC 1 unit given Review of Systems All other systems reviewed and are negative. Physical Exam: Constitutional: General: She is not in acute distress. Appearance: Normal appearance. Cardiovascular: Rate and Rhythm: Bradycardia present. Rhythm irregular. Pulses: Normal pulses. Comments: Complete heart block with rate 40's Pulmonary: Effort: Pulmonary effort is normal. No respiratory distress. Breath sounds: Normal breath sounds. Abdominal: General: Bowel sounds are normal. There is no distension. Palpations: Abdomen is soft. Tenderness: There is no abdominal tenderness. Skin: General: Skin is warm and dry. Capillary Refill: Capillary refill takes less than 2 seconds. Neurological: General: No focal deficit present. Mental Status: She is alert and oriented to person, place, and time. Mental status is at baseline. BP 114/54 | Pulse 103 | Temp 36.9 ?C (98.4 ?F) | Resp 24 | Ht 1.651 m (5' 5") | Wt 85.7 kg (189 lb) | SpO2 95% | BMI 31.45 kg/m? aspirin, 81 mg, Oral, Daily[Held by provider] atorvastatin, 80 mg, Oral, Daily atropine, , , cefepime, 1 g, Intravenous, q12h DOPamine, , , heparin, 5,000 Units, Subcutaneous, q8h pantoprazole, 40 mg, Intravenous, q24h DIRK polyethylene glycol (PEG) 3350, 17 g, Oral, Daily sennosides, 2 tablet, Oral, q12h DIRK sodium chloride, 1,000 mL, Intravenous, Once ticagrelor, 90 mg, Oral, q12h DIRK vancomycin, 750 mg, Intravenous, q36h Encounter Date: 03/27/24 XR chest 1 view Narrative EXAM: XR CHEST 1 VIEW DATE: 03/28/2024 6:41 INDICATION: pacemaker COMPARISON: Chest x-ray from yesterday TECHNIQUE: AP chest ImpressionLimited technique, the lower neck is outside the [id number]. Interval placement of right IJ approach single lead pacemaker lead terminating over the right ventricle. Well-positioned ET tube above the feliz. Nasogastric tube lies below the level of the diaphragm and inferior edge of the film. The cardiomediastinal silhouette is normal in size for technique. Decreased lung volumes with prominence of interstitial markings which could represent subsegmental atelectasis with or without superimposed pneumonia, aspiration or dependent edema. Tiny right pleural effusion. No pneumothorax in this portable radiograph. Osseous structures are unchanged. Transthoracic echo (TTE) complete Result Date: 03/28/2024 Left ventricle is normal in size with mildly reduced global systolic function and an estimated ejection fraction of 45-50%, by the method of discs. Diastolic function is indeterminate. Right ventricle is normal in size and systolic function. Left atrium appears normal in size. Right atrium is normal in size Aortic valve is trileaflet and sclerotic with normal function. There is mild mitral valve stenosis and a heavily calcified annulus. The transvalvular mean gradient is 4 mmHg, at a HR of 90 bpm. and the MV area by continuity eq is 1.5 cm2.No significant mitral valve regurgitation is observed. Tricuspid valve leaflets are normal. There is trace tricuspid regurgitation. Unable to estimate right ventricular systolic pressure due to an insufficient TR jet. Pulmonic valve appears normal in structure with trace regurgitation. Aortic root is normal in diameter. Inferior vena cava is normal in diameter with >50% respiratory variation in size. No pericardial effusion is seen. No prior study is currently available for comparison. Principal Problem: ST elevation myocardial infarction (STEMI) of inferior wall (HCC) Active Problems: Heart block Hyperglycemia due to diabetes mellitus (CMS/HCC) (HCC) On mechanically assisted ventilation (CMS/HCC) (HCC) Fall GUILHERME (acute kidney injury) (HCC) Acute respiratory alkalosis Anemia of chronic disease Toxic metabolic encephalopathy Acute hypoxemic respiratory failure (HCC) Atelectasis Cardiogenic shock (HCC) Severe sepsis (HCC) Shock liver Hyperkalemia Pleural effusion, bilateral Adrenal nodule (HCC) Plan: Neuro/Psych:-Mentation intact -CT brain showing no acute abnormality. CT cervical spine also showing no fracture or traumatic malalignment -Pain control with Tylenol PRN -Continue delirium precautions and adherence to sleep-wake cycle. CV:-s/p temp pacer 03/27 and LHC with PCI x 1 to RCA on 03/27. Subsequent removal of temp pacer and patient redeveloped 2nd and 3rd degree heart block. Transcutaneous pacer pads, dopamine, and atropine all at bedside but currently patient is asymptomatic. EP following. Possible PPM -Continue aspirin and Brilinta. Statin held owing to elevated LFTs -ECHO showing EF 45%, normal RV size and systolic function -IVC on BSUS is 2 to 2.46 cm. Giving 1 liter NS over 4 hours Resp:-Supplemental O2 via nasal cannula. -CT chest showing no acute abnormalities with trace pleural effusions, atelectasis -Duonebs prn -Continue volume expansion protocol and incentive spirometry GI/Nutrition: -NPO for possible PPM. Heart diet thereafter -Protonix ppx -Continue bowel regimen and titrate for 1-2 BMs daily -CT abdomen and pelvis showing no acute traumatic abnormalities and heterogeneous left adrenal nodule measuring 3.2 cm -Elevated LFTs likely 2/2 ischemia from CHB. Trend Renal/Electrolytes:-GUILHERME could be 2/2 ischemia in the setting of CHB. Renal US shows chronic parenchymal disease. Nephrology consulted. Possible dialysis -Monitor UOP with strict I's/O's -Trend BUN/Cr -Avoid nephrotoxic agents -Replace electrolytes as needed Endo: -Hgb A1c 10.4 -Increase SSI to high dose and continue strict glycemic control with sliding scale insulin to keep blood glucose 100-180 -Would recommend endocrine consult Heme/Onc:-Monitor for bleeding and coagulopathies -Maintain Hgb > 7 and Platelets > 10k ID: -Continues on empiric Vancomycin and Cefepime day 3 -Procal elevated. Cultures pending. -MRSA nares, strep pna, and legionella all negative -Respiratory culture pending -Worsening leukocytosis today. Escalate the cefepime to Merrem -Discontinue Vancomycin given negative MRSA nares Musculoskeletal/Skin: -Continue wound care and sacral decubitus prevention -PT/OT and out of be to chair daily Prophylaxis:-DVT ppx: Heparin -PUD ppx: Protonix Vascular/ access:Peripheral IV 03/27/24 Right Antecubital (Active) Peripheral IV 03/28/24 Anterior;Distal;Left Wrist (Active) Compliance: Restraints: None Indwelling Guevara Catheter: None Central Venous Access: None Arterial Access: None Code Status: Full Disposition: CCU I spent a total of 25 minutes of critical care time with this patient independently, not including procedure time, then plan was discussed with [facility] Attending Dr. Melissa Kennedy, MSN, AGACNP-BCNHO #[id number] Division of Pulmonary Critical Care [facility]South [facility] [email or web address] Cosigned by Jessa Torres MD at 03/29/2024 3:20 PM CDT * Jessa Torres MD - 03/29/2024 8:35 AM CDT TEACHING PHYSICIAN NOTE I was present for the desai points of Ms. Kennedy history and physical examination of the patient on the this date of service. I reviewed past medical records, information, labs and imaging and I concur with resident’s/fellow’s note and agree with the findings and plan as documented in the chart except stated below otherwise. I discussed the case and agree with the diagnosis of: -[facility] -Syncope likely from Complete heart block -Pulmonary edema -STEMI s/p PCI RCA -Acute systolic heart failure (EF 45-50%) -Encephalopathy, hypoxemic vs toxometaboic -Possible Sepsis--> persistent fever -GUILHERME -Transminitis -DM -Shock, septic vs cardiogenic, Shock resolved -Incidental left adrenal nodule (3cm) Plan: - Wean O2 as tolerated - Back to heart block--> EP planning for PPM - ISHAN + holding statin - dc Vanc 03/27-03/29 --> dc, MRSA pcr negative. Escalate to Meropenem 03/29: day 1. Received cefepime 03/27-03/29.Cultures pending. LP will be difficult secondary to ISHAN--> Defer LP, also patient mental status is improved. Procalcitonin >2. Gall bladder surgically absent on CT trauma. No perf or pneumatosis. Pending urine legionella and urine strep - Temp pacemaker - GUILHERME worsening. Oliguric. Recommend nephrology consultation. Ultrasound suggestive of medicorenal disease - ICU quality > Head elevated 30 degrees > DVT prophylaxis: heparin subq > Nutrition/glucose control: npo for potential procedure, Glucose> 180 (Recommend lantus once diet is steady) > Line and tubes: peripherals > Guevara catheter: none > Sedation: hold > Date of intubation: 03/27. Extubated 03/28 > Restraints: none This patient is critically ill due to presenting with an illness that impairs one or more vital organ systems. There was a high probability of imminent or life threatening deterioration in the patient's condition. I spent a cumulative 40 minutes of non-concurrent critical care time directly related to this individual patient's care involving the evaluation, coordination, and management of the patient. This includes only time spent at the immediate bedside or elsewhere on the patient's floor or unit and is not inclusive of any time spent performing invasive procedures. * Jayla Grewal MD - 03/29/2024 6:44 AM CDT CCU Progress Note Admission Date: 03/27/2024 CCU Day: 2 Problem List Principal Problem: ST elevation myocardial infarction (STEMI) of inferior wall (HCC) Active Problems: Heart block Hyperglycemia due to diabetes mellitus (CMS/HCC) (HCC) On mechanically assisted ventilation (CMS/HCC) (HCC) Fall GUILHERME (acute kidney injury) (HCC) Acute respiratory alkalosis Anemia of chronic disease Toxic metabolic encephalopathy Acute hypoxemic respiratory failure (HCC) Atelectasis Cardiogenic shock (HCC) Severe sepsis (HCC) Shock liver Hyperkalemia Pleural effusion, bilateral Adrenal nodule (HCC) Assessment & Plan Ms. Freeman is a 63-year-old female presented by EMS after being found down and unresponsive by family and determined to be in complete heart block, now s/p placement of temporary pacer -- CHB/ECG changes concerning for STEMI - s/p Temp Pacer, LHC showed 100% RCA occlusion s/p PCI with HARI x1 to mid RCA (via R Fem access). Changes - 03/29/24: - transvenous pacer removed 03/28 - now looks to be in wenckebach, HR 90s. Will monitor - Extubated 03/28 - Nephrology consulted for worsening GUILHERME - Hb 6.8, repleted 1U pRBC Cardiovascular: #STEMI s/p PCI with HARI to mid RCA (100% RCA occlusion) #CAD #Complete Heart Block - EP to evaluate for permanent pacemaker - EKG now paced - troponin initially 1846 > 2205 > 8000 -Patient s/p PCI with HARI, currently HDS and extubated today, loaded with Brilinta/Aspirin during procedure -Today, patient denies any current symptoms Plan -Continue ASA 81, Brilinta 90mg daily -Holding Statin for now given elevated LFT's, will resume when resolved Neurology: - Pain control: Tyelenol prn - Fall precautions - CT head negative. Respiratory: Acute respiratory failure Pulmonary edema - Extubated 03/28 - Continue to monitor respiratory status - Aspiration precautions -CTM Gastroenterology: #Transaminitis - Nutrition, heart healthy diet - PUD ppx - BM Plan: -Trend LFT's Renal: #GUILHERME on CKD? - Cr 2.75, unknown baseline - monitor UOP -Cr uptrending, with urine output decreasing - Renal US Bilateral renal parenchymal disease. Plan: -Consulted Nephrology -Urine Lytes, Urine Protein/Creatinine - monitor urine output Infectious Disease: #Persistent Fever, concern for Sepsis #Leukocytosis - Afebrile since 03/28 2000 -Started Cefepime 1g Q12H Hematology: #Anemia - family reports no hx - Hb 8.0 yesterday - Hb 7.1, after PCI - no signs of bleeding - Hb 03/29 6.8 > transfused 1 U pRBC, responded appropriately Plan -CTM -Trend CBC -Follow-up Iron studies - Will transfuse to keep Hgb >7.0 Endocrinology: - on home insulin +/- metformin - Goal BS: 140-180 - glucose checks q4 - A1c 10.4 - TSH 0.914 Plan: -SSI -CTM DVT PPX: Heparin SubQ PUD PPX : Protonix Diet: Heart healthy PT/OT indicated: Will consult Lines: Peripheral IV x 2, G tube, Guevara Catheter Guevara: day 1 Code status: FULL Dispo: pending clinical stablility Contact: see separate note for contact info Patient staffed with attending physician, MD Jayla Stauffer MD Internal Medicine | PGY-1 [facility] | [facility] Subjective Patient reporting new symptoms this morning. Denies any current pain. Pt Aox4, resting comfortably in bed. Objective Vital Signs Current: Visit Vitals BP 114/54 Pulse (!) 47 Temp 36.9 ?C (98.4 ?F) Resp 25 24 Hour: Vitals: 03/29/24 0406 03/29/24 0430 03/29/24 0500 03/29/24 0600 BP: 101/53 109/56 114/54 Pulse: 53 (!) 47 (!) 48 (!) 47 Resp: 20 18 25 Temp: 36.9 ?C (98.4 ?F) SpO2: 97% 100% 99% 96% Intake/Output: I/O last 3 completed shifts: In: 103.4 (1.2 mL/kg) [I.V.:43.4 (0.5 mL/kg); Other:60] Out: 785 (9.2 mL/kg) [Urine:775 (0.3 mL/kg/hr); Blood:10] Weight: 85.7 kg Intake/Output Summary (Last 24 hours) at 03/29/2024 0644Last data filed at 03/28/2024 1800 Gross per 24 hour Intake -- Output 200 ml Net -200 ml Net intake/output since admission: Net IO Since Admission: -676.65 mL [03/29/24 0644] PHYSICAL EXAM General Appearance: no acute distress, no pallorHEENT: Extra ocular movements intact, no scleral icterus, mucous membrane moist, external ears normal Neck: Supple, FROM Lungs: respiratory effort normal, CTA bilaterally, no wheezes/rales/rhonchi Heart: Regular rate and regular rhythm, no murmur Abdomen: soft, non-tender, non-distended MSK/Extremities: No edema, pulses 2+. No obvious deformity. Skin: No lesions, no rash. No jaundice. Neurologic: AOx3, no focal deficits, speech clear Psych: Mood congruent affect, responds appropriately to questions. SCHEDULED HOSPITAL MEDICATIONSaspirin, 81 mg, Oral, Daily [Held by provider] atorvastatin, 80 mg, Oral, Daily atropine, , , cefepime, 1 g, Intravenous, q12h DOPamine, , , heparin, 5,000 Units, Subcutaneous, q8h pantoprazole, 40 mg, Intravenous, q24h DIRK polyethylene glycol (PEG) 3350, 17 g, Oral, Daily sennosides, 2 tablet, Oral, q12h DIRK ticagrelor, 90 mg, Oral, q12h DIRK vancomycin, 750 mg, Intravenous, q36h PRN Medications:PRN medications: acetaminophen, atropine, dextrose, dextrose, DOPamine, glucagon, insulin lispro, [COMPLETED] Insert peripheral IV AND [COMPLETED] Saline lock IV AND sodium chloride, [COMPLETED] Insert peripheral IV AND [COMPLETED] Saline lock IV AND sodium chloride, sodium chloride, Pharmacy to dose vancomycin AND Vancomycin Pharmacy Dosing Drips: LABS Results from last 7 days Lab Units 03/29/24 0127 03/29/24 01203/28/24221903/28/24 0159 WBC 10*3/uL 21.34* -- 20.71* 17.74* POC HEMOGLOBIN, VENOUS g/dL -- 7.2* -- -- HEMOGLOBIN g/dL 6.8* -- 6.9* 7.1* MCV fL 88.6 -- 87.7 88.5 Results from last 7 daysLab Units 03/29/24 0127 03/29/24 0121 03/28/24221903/28/24 0159 WBC 10*3/uL 21.34* -- 20.71* 17.74* POC HEMOGLOBIN, VENOUS g/dL -- 7.2* -- -- HEMOGLOBIN g/dL 6.8* -- 6.9* 7.1* MCV fL 88.6 -- 87.7 88.5 Results from last 7 daysLab Units 03/29/24 0331 03/29/24 0204 03/29/24 0127 03/29/24 0121 03/28/24 2220 03/28/24 0159 03/27/24 1556 03/27/24 1220 03/27/24 1117 03/27/24 0837 POC SODIUM, VENOUS mEq/L -- -- -- 135 -- -- -- -- -- -- POC SODIUM, ARTERIAL mEq/L -- 134* -- -- -- -- < > -- < > -- SODIUM mEq/L -- -- 137 -- -- 138 -- -- -- 137 POC POTASSIUM, VENOUS mEq/L -- -- -- 4.5 -- -- -- -- -- -- POC POTASSIUM, ARTERIAL mEq/L -- 4.7 -- -- -- -- < > -- < > -- POTASSIUM mEq/L 4.3 -- 4.5 -- 4.2 4.3 -- 4.5 -- 4.4 POC CHLORIDE, VENOUS mEq/L -- -- -- 106 -- -- -- -- -- -- POC CHLORIDE mEq/L -- 105 -- -- -- -- < > -- < > -- CHLORIDE mEq/L -- -- 106 -- -- 107 -- -- -- 105 CO2 mEq/L -- -- 19.6* -- -- 21.5 -- -- -- 22.6 BUN mg/dL -- -- 53* -- -- 45* -- -- -- 45* PHOSPHORUS mg/dL -- -- -- -- 6.3* 4.8 -- 5.0 -- 3.7 < > = values in this interval not displayed. Results from last 7 daysLab Units 03/29/24 01203/28/24 0159 03/27/24 0313 AST U/L 72* 231* 262* ALT U/L 110* 189* 166* Results from last 7 daysLab Units 03/29/24 01203/27/24 0328 INR 1.41* 1.20* PROTIME Seconds 17.5* 15.5* PTT Seconds 38.5* 30.1 No lab exists for component: "APH", "APCO2", "APO2"No lab exists for component: "POCGLU" Microbiology:No results found for the last 90 days. OTHER DATA Radiology Review:US liver w vessels doppler Result Date: 03/28/2024 EXAM: US ABDOMEN WITH DOPPLER DATE: 03/28/2024 10:47 INDICATION: elevated AST and ALT ADDITIONAL INFORMATION: 63 years old female. COMPARISON: None. TECHNIQUE: Multiplanar grayscale, color Doppler, and spectral Doppler ultrasound of the abdomen. FINDINGS: Liver: Craniocaudal length: Mildly enlarged, 19.7 cm. Echogenicity: Normal. Surface: Normal. Mass (size and location): None. Hepatic and portal vasculature: Hepatic artery: Patent with antegrade pulsatile flow. Resistive index: 0.8. Portal veins: Hepatopetal and pulsatile. MPV caliber: 1.2 cm. Hepatic veins: Patent with normal hepatofugal multiphasic flow. Splenic artery: Patent with antegrade pulsatile flow. Splenic vein: Patent with normal flow. Portosystemic collaterals: None. Abdominal aorta: Visible portions are normal. Inferior vena cava: Visible portions are normal. Bile ducts: Common bile duct: 0.7 cm. Intrahepatic ducts: Normal. Gallbladder: Post cholecystectomy. Pancreas: Partially obscured. Limited assessment due to bowel gas. Spleen: Size: 9.7 cm Mass or focal lesion (size and location): None. Free fluid: Trace perihepatic free fluid. Other: None. 1. Congestive hepatomegaly with trace perihepatic ascites. 2. Post cholecystectomy status. This report was dictated by a Mobile Engineer/Fellow/KENYON: Trung Coon RES, MD 03/28/2024 15:25 I have personally reviewed the images as well as the interpretation and agree with the findings. Dictation Date/time: 03/28/2024 15:19 Electronically Signed by: Sangeetha Rodriguez MD 03/28/2024 16:18 US renal completeResult Date: 03/28/2024 EXAM: US RENAL DATE: 03/28/2024 10:22 INDICATION: Renal failure ADDITIONAL INFORMATION: None. COMPARISON: None. TECHNIQUE: Multiplanar grayscale and color Doppler ultrasound of the kidneys and bladder. FINDINGS: Right kidney: Size: 12.1 cm x 5.0 cm x 6.6 cm, 212.1 cm3 Cortical thickness: Normal. Hydronephrosis: None. Echogenicity: Mildly increased/hyperechoic. Calculi: None. Cysts/Masses: None. Left kidney: Size: 11.0 cm x 5.0 cm x 5.7 cm, 192.0 cm3 Cortical thickness: Normal. Hydronephrosis: None. Echogenicity: Mildly increased/hyperechoic. Calculi: None. Cysts/Masses: None. Bladder: Decompressed by Guevara catheter. Free fluid: None. Other: None. 1. No hydronephrosis. 2. Bilateral renal parenchymal disease. 3. Urinarybladder is empty with Guevara catheter and therefore could not be evaluated. Transthoracic echo (TTE) completeResult Date: 03/28/2024 Left ventricle is normal in size with mildly reduced global systolic function and an estimated ejection fraction of 45-50%, by the method of discs. Diastolic function is indeterminate. Right ventricle is normal in size and systolic function. Left atrium appears normal in size. Right atrium is normal in size Aortic valve is trileaflet and sclerotic with normal function. There is mild mitral valve stenosis and a heavily calcified annulus. The transvalvular mean gradient is 4 mmHg, at a HR of 90 bpm. and the MV area by continuity eq is 1.5 cm2.No significant mitral valve regurgitation is observed. Tricuspid valve leaflets are normal. There is trace tricuspid regurgitation. Unable to estimate right ventricular systolic pressure due to an insufficient TR jet. Pulmonic valve appears normal in structure with trace regurgitation. Aortic root is normal in diameter. Inferior vena cava is normal in diameter with >50% respiratory variation in size. No pericardial effusion is seen. No prior study is currently available for comparison. * Juana Holcomb PharmD - 03/28/2024 5:05 PM CDT Clinician Notes: Vancomycin Dosing and Monitoring Protocol - Initial Consult Note Consulting Physician: Madyson Sutton MD Indication for Vancomycin: Suspect Sepsis AUC Goal: 400 - 600 mg h/L Vancomycin Start Date: 03/27/2024 Duration: TBD Plan: Vancomycin 750 mg every 36 hours Next level: 03/29/2024 (ordered) 1-compartment better fit than 2-compartment Thank you for allowing us to participate in the care of this patient. We will continue to monitor and adjust vancomycin therapy as needed. Recommended Dose: 750 mg IV over 1 hour every 36 hours for 3 doses Next Dose At: 18:00 on Mar 28 2024 Dosing Interval: 36 hours Infusion Length: 1 hours Dose Valid For: 3 doses only Dose Recommendation Method: Clinician-selected dose (Individualized model) Predicted Peak: 27.3 mcg/mL Predicted Trough: 18.1 mcg/mL Predicted AUC24: 537.9 mcg.h/mL Predicted AUC36: 806.9 mcg.h/mL Most Recent Dose: 2000 mg over 2 hours at 06:08 on Mar 27 2024 Most Recent SCr: 3.38 mg/dL at 01:59 on Mar 28 2024 Most Recent Blood Concentration: 18.9 mcg/mL at 15:00 on Mar 28 2024 Peak: 25.5 mcg/mL Trough: 17.1 mcg/mL AUC24: 492 mcg.h/mL AUC36: 735 mcg.h/mL * Jessa Torres MD - 03/28/2024 8:20 AM CDT TEACHING PHYSICIAN NOTE I was present for the desai points of Ms. Kennedy history and physical examination of the patient on the this date of service. I reviewed past medical records, information, labs and imaging and I concur with resident’s/fellow’s note and agree with the findings and plan as documented in the chart except stated below otherwise. I discussed the case and agree with the diagnosis of: -[facility]ute [facility] -Syncope likely from Complete heart block -Pulmonary edema -STEMI s/p PCI RCA -Acute systolic heart failure (EF 45-50%) -Encephalopathy, hypoxemic vs toxometaboic -Possible Sepsis--> persistent fever -GUILHERME -Transminitis -Shock, septic vs cardiogenic, Shock resolved -Incidental left adrenal nodule (3cm) Plan: - continue lung protection strategy, continue vent bundle --> Pause sedation. SBT passed --> exutbated - ISHAN + holding statin - Empiric Vanc and Cefepime 03/27: day 2. Cultures pending. LP will be difficult secondary to ISHAN--> Defer. Send procalcitonin. Gall bladder surgically absent on CT trauma. No perf or pneumatosis. Pending urine legionella and urine strep - Temp pacemaker - ICU quality > Head elevated 30 degrees > DVT prophylaxis: heparin subq > Nutrition/glucose control: tube feeds, Glucose< 180 (on SSI) > Line and tubes: -NGT 03/27 -right radial art line 03/27 -right Int jug cordis 03/27 > Guevara catheter: 03/27 > Sedation: hold > Date of intubation: 03/27 > Restraints: ordered This patient is critically ill due to presenting with an illness that impairs one or more vital organ systems. There was a high probability of imminent or life threatening deterioration in the patient's condition. I spent a cumulative 40 minutes of non-concurrent critical care time directly related to this individual patient's care involving the evaluation, coordination, and management of the patient. This includes only time spent at the immediate bedside or elsewhere on the patient's floor or unit and is not inclusive of any time spent performing invasive procedures. * Ирина Kennedy NP - 03/28/2024 8:17 AM CDT Hospital Course: Elvis Freeman ( 1960) is a 64 year old female who was brought in by EMS after being found down and unresponsive by family and determined to be in complete heart block with Inferior STEMI, now s/p placement of temporary pacer and intubated for airway protection. LHC revealed 100% occlusion of mid RCA, s/p stent x 1 on 03/27 Interval events: Passed SBT this AM: VC 1.5 L, RSBI 28, Nif -26, + cuff Review of Systems Reason unable to perform ROS: Unable to assess 2/2 clinical condition. Physical Exam: Constitutional: General: She is not in acute distress. Comments: Following commands on ventilator Cardiovascular: Rate and Rhythm: Normal rate and regular rhythm. Pulses: Normal pulses. Comments: Right internal jugular temp pacer set at a rate of 70 Pulmonary: Effort: Pulmonary effort is normal. No respiratory distress. Breath sounds: Normal breath sounds. Abdominal: General: Bowel sounds are normal. There is no distension. Palpations: Abdomen is soft. Tenderness: There is no abdominal tenderness. Skin: General: Skin is warm and dry. Capillary Refill: Capillary refill takes less than 2 seconds. Neurological: Mental Status: She is alert. Comments: Positive gag. Moving all extremities. Following commands BP 101/51 | Pulse 88 | Temp (!) 38.4 ?C (101.1 ?F) | Resp (!) 9 | Ht 1.651 m(5' 5") | Wt 85.7 kg (189 lb) | SpO2 98% | BMI 31.45 kg/m? artificial tears, 1 Application, Both Eyes, q6h SCHaspirin, 81 mg, Oral, Daily atorvastatin, 80 mg, Oral, Daily cefepime, 1 g, Intravenous, q12h chlorhexidine, 15 mL, Swish & Spit, 4x daily Enteral Free water Flush, 30 mL, Nasogastric, q4h heparin, 5,000 Units, Subcutaneous, q8h pantoprazole, 40 mg, Intravenous, q24h DIRK polyethylene glycol (PEG) 3350, 17 g, Oral, Daily sennosides, 2 tablet, Oral, q12h DIRK ticagrelor, 90 mg, Oral, q12h DIRK peptamen AF, , Last Rate: Stopped (03/27/24 1315) Encounter Date: 03/27/24XR chest 1 view Narrative EXAM: XR CHEST 1 VIEW DATE: 03/27/2024 2:49 INDICATION: trauma COMPARISON: None. TECHNIQUE: AP chest. FINDINGS: Lines, tubes and hardware: None. Lungs and pleura: Low lung volumes with vascular crowding and scattered atelectasis. No focal consolidation. No pleural effusions or pneumothorax. Heart and mediastinum: The heart size is normal for technique. The mediastinal contours are normal. Note made of aortic arch calcifications. Bones and soft tissues: No acute abnormality. Impression1. No acute abnormality. No echocardiogram results found for the past 12 months Principal Problem:ST elevation myocardial infarction (STEMI) of inferior wall (HCC) Active Problems: Heart block Hyperglycemia due to diabetes mellitus (CMS/HCC) (HCC) On mechanically assisted ventilation (CMS/HCC) (HCC) Fall GUILHERME (acute kidney injury) (HCC) Acute respiratory alkalosis Anemia of chronic disease Toxic metabolic encephalopathy Acute hypoxemic respiratory failure (HCC) Atelectasis Cardiogenic shock (HCC) Severe sepsis (HCC) Shock liver Hyperkalemia Pleural effusion, bilateral Adrenal nodule (HCC) Plan: Neuro/Psych:-Remains off sedation. Intact mental status. Likely extubation this morning -CT brain showing no acute abnormality. CT cervical spine also showing no fracture or traumatic malalignment -Pain control with Tylenol PRN -Continue delirium precautions and adherence to sleep-wake cycle. CV:-s/p temp pacer 03/27 and LHC with PCI x 1 to RCA on 03/27 -Continue aspirin and Brilinta. Statin held owing to elevated LFTs -ECHO showing EF 45%, normal RV size and systolic function Resp:-Tolerating PSV. Passed SBT. Extubate today -CT chest showing no acute abnormalities with trace pleural effusions, atelectasis -Duonebs prn -Continue volume expansion protocol and incentive spirometry GI/Nutrition: -NPO for extubation -Protonix ppx -Continue bowel regimen and titrate for 1-2 BMs daily -CT abdomen and pelvis showing no acute traumatic abnormalities and heterogeneous left adrenal nodule measuring 3.2 cm -Elevated LFTs likely 2/2 ischemia from CHB. Trend Renal/Electrolytes:-GUILHERME could be 2/2 ischemia in the setting of CHB. Also could have chronic component. Get Renal US -Monitor UOP with strict I's/O's -Trend BUN/Cr -Avoid nephrotoxic agents -Replace electrolytes as needed Endo: -Hgb A1c 10.4 -Continue strict glycemic control with sliding scale insulin to keep blood glucose 100-180 -Would recommend endocrine consult Heme/Onc:-Monitor for bleeding and coagulopathies -Maintain Hgb > 7 and Platelets > 10k ID: -Found down. Possible aspiration. Started on empiric Vancomycin and Cefepime day 2 -Procal mildly elevated. Cultures pending. T max 101.7 -Sent for MRSA nares and strep pna/legionella -Consider de escalation to Ceftriaxone and azithromycin -Send respiratory culture and pro calcitonin Musculoskeletal/Skin: -Continue wound care and sacral decubitus prevention -PT/OT and out of be to chair daily Prophylaxis:-DVT ppx: Heparin -PUD ppx: Protonix Vascular/ access:Peripheral IV 03/27/24 Right Antecubital (Active) Peripheral IV 03/27/24 Anterior;Left Wrist (Active) Arterial Line 03/27/24 Right Radial (Active) Urethral Catheter Temperature probe 16 Fr. (Active) Gastric Tube 03/27/24 Orogastric 16 Fr Right mouth (Active) Compliance: Restraints: Needed for pulling at lines and not redirectable Indwelling Guevara Catheter: Required for acute output, retention Central Venous Access: None Arterial Access: Arterial line required for strict hemodynamic monitoring / Frequent ABGs Code Status: Full Disposition: CCU I spent a total of 25 minutes of critical care time with this patient independently, not including procedure time, then plan was discussed with [facility] Attending Dr. Melissa Kennedy, MSN, AGACNPNOR[facility] [id number] Division of Pulmonary Critical Care MedicineSouth [facility] [email or web address] Cosigned by Jessa Torres MD at 03/28/2024 12:26 PM CDT * Arturo Guillen MD - 03/28/2024 6:18 AM CDT CCU Progress Note Admission Date: 03/27/2024 CCU Day: 1 Problem List Principal Problem: Heart block Active Problems: Hyperglycemia due to diabetes mellitus (CMS/HCC) (HCC) On mechanically assisted ventilation (CMS/HCC) (HCC) Fall GUILHERME (acute kidney injury) (HCC) Acute respiratory alkalosis Anemia of chronic disease Toxic metabolic encephalopathy Acute hypoxemic respiratory failure (HCC) Atelectasis Cardiogenic shock (HCC) Severe sepsis (HCC) Shock liver Hyperkalemia Pleural effusion, bilateral Adrenal nodule (HCC) Assessment & Plan Ms. Freeman is a 63-year-old female presented by EMS after being found down and unresponsive by family and determined to be in complete heart block, now s/p placement of temporary pacer -- CHB/ECG changes concerning for STEMI - s/p Temp Pacer, LHC showed 100% RCA occlusion s/p PCI with HARI x1 to mid RCA (via R Fem access). Changes - 03/28/24: -STEMI s/p PCI with LHC showing 100% RCA occlusion, s/p HARI x1 to mid RCA -This morning was not being paced by Transvenous pacer - plan for transvenous pacer removal -Passed Spontaneous Breathing Trial - Extubated today -Febrile overnight, Tmax 101 - Cultures drawn overnight, started Cefepime -GUILHERME on ?CKD, up-trending Cr to 3.30 - Consulted Nephrology - Labs ordered including Urine Lytes, Urine Protein/Creatinine, Kidney Ultrasound -Anemia, Hgb at 7.1 this AM with yesterday at 8.0 - trend CBC in Afternoon, transfuse as needed. -Continue GI and DVT prophylaxis per ICU protocol Cardiovascular: #STEMI s/p PCI with HARI to mid RCA (100% RCA occlusion) #CAD #Complete Heart Block - EP to evaluate for permanent pacemaker - EKG now paced - troponin initially 1846 > 2205 > 8000 -Patient s/p PCI with HARI, currently HDS and extubated today, loaded with Brilinta/Aspirin during procedure -Today, patient denies any current symptoms Plan -Continue ASA 81, Brilinta 90mg daily -Holding Statin for now given elevated LFT's, will resume when resolved Neurology: - Pain control: Tyelenol prn - Fall precautions - CT head negative. Respiratory: Acute respiratory failure Pulmonary edema - Extubated today - Continue to monitor respiratory status - Aspiration precautions -CTM Gastroenterology: #Transaminitis - Nutrition, heart healthy diet - PUD ppx - BM Plan: -Trend LFT's Renal: #GUILHERME on CKD? - Cr 2.75, unknown baseline - monitor UOP -Cr uptrending today to 3.30, with urine output overnight 500cc's Plan: -Consulted Nephrology -Urine Lytes, Renal Ultrasound, Urine Protein/Creatinine Infectious Disease: #Persistent Fever, concern for Sepsis #Leukocytosis -Patient persistently febrile overnight - Tmax, leukocytosis at 17 today -Started Cefepime 1g Q12H Hematology: #Anemia - family reports no hx - Hb 8.0 yesterday - Hb 7.1, after PCI - no signs of bleeding Plan -CTM -Trend CBC, follow-up PM CBC -Follow-up Iron studies - Will transfuse to keep Hgb >7.0 Endocrinology: - on home insulin +/- metformin - Goal BS: 140-180 - glucose checks q4 - A1c 10.4 - TSH 0.914 Plan: -SSI -CTM DVT PPX: Heparin SubQ PUD PPX : Protonix Diet: Heart healthy PT/OT indicated: Will consult Lines: Peripheral IV x 2, G tube, Guevara Catheter Guevara: day 1 Code status: FULL Dispo: pending clinical stablility Contact: see separate note for contact info Patient staffed with attending physician, MD Arturo Stauffer MD Internal Medicine | PGY-1 [facility] | [facility] Subjective Patient reporting new symptoms this morning. Denies any current pain. Extubated Objective Vital Signs Current: Visit Vitals BP 130/59 Pulse 101 Temp (!) 38.7 ?C (101.7 ?F) Resp 13 24 Hour: Vitals: 03/28/24 0416 03/28/24 0430 03/28/24 0445 03/28/24 0500 BP: 116/57 130/59 Pulse: 96 96 101 Resp: (!) 7 (!) 0 13 Temp: (!) 38.6 ?C (101.5 ?F) (!) 38.7 ?C (101.7 ?F) (!) 38.7 ?C (101.7 ?F) SpO2: 98% 95% 95% 96% Intake/Output: I/O last 3 completed shifts: In: 5 (0.1 mL/kg) [IV Piggyback:5] Out: 585 (6.8 mL/kg) [Urine:575 (0.2 mL/kg/hr); Blood:10] Weight: 85.9 kg Intake/Output Summary (Last 24 hours) at 03/28/2024618Last data filed at 03/28/2024 0000 Gross per 24 hour Intake 69.35 ml Output 585 ml Net -515.65 ml Net intake/output since admission: Net IO Since Admission: -510.65 mL [03/28/24618] PHYSICAL EXAM General Appearance: no acute distress, no pallorHEENT: Extra ocular movements intact, no scleral icterus, mucous membrane moist, external ears normal Neck: Supple, FROM Lungs: respiratory effort normal, CTA bilaterally, no wheezes/rales/rhonchi Heart: Regular rate and regular rhythm, no murmur Abdomen: soft, non-tender, non-distended MSK/Extremities: No edema, pulses 2+. No obvious deformity. Skin: No lesions, no rash. No jaundice. Neurologic: AOx3, no focal deficits, speech clear Psych: Mood congruent affect, responds appropriately to questions. SCHEDULED HOSPITAL MEDICATIONSartificial tears, 1 Application, Both Eyes, q6h DIRK aspirin, 81 mg, Oral, Daily atorvastatin, 80 mg, Oral, Daily cefepime, 1 g, Intravenous, q12h chlorhexidine, 15 mL, Swish & Spit, 4x daily Enteral Free water Flush, 30 mL, Nasogastric, q4h heparin, 5,000 Units, Subcutaneous, q8h pantoprazole, 40 mg, Intravenous, q24h DIRK polyethylene glycol (PEG) 3350, 17 g, Oral, Daily sennosides, 2 tablet, Oral, q12h DIRK ticagrelor, 90 mg, Oral, q12h DIRK PRN Medications:PRN medications: acetaminophen, chlorhexidine, dextrose, dextrose, dextrose, dextrose, fentaNYL, glucagon, glucagon, insulin lispro, [COMPLETED] Insert peripheral IV AND [COMPLETED] Saline lock IV AND sodium chloride, [COMPLETED] Insert peripheral IV AND [COMPLETED] Saline lock IV AND sodium chloride, Pharmacy to dose vancomycin AND Vancomycin Pharmacy Dosing Drips: peptamen AF, , Last Rate: Stopped (03/27/24 1315) LABSResults from last 7 days Lab Units 03/28/2415803/27/24219 WBC 10*3/uL 17.74* 16.30* HEMOGLOBIN g/dL 7.1* 8.0* MCV fL 88.5 88.6 Results from last 7 daysLab Units 03/28/24 01503/27/24219 WBC 10*3/uL 17.74* 16.30* HEMOGLOBIN g/dL 7.1* 8.0* MCV fL 88.5 88.6 Results from last 7 daysLab Units 03/28/24 0159 03/27/24 1556 03/27/24 1220 03/27/24 1117 03/27/24 0837 03/27/24 0420 03/27/24 0317 03/27/24 0220 POC SODIUM, ARTERIAL mEq/L -- 136 -- 136 -- -- -- -- SODIUM mEq/L 138 -- -- -- 137 136 -- 138 POC POTASSIUM, ARTERIAL mEq/L -- 4.6 -- 4.8 -- -- -- -- POTASSIUM mEq/L 4.3 -- 4.5 -- 4.4 4.8* -- 4.3 POTASSIUM WHOLE BLOOD -- -- -- -- -- -- < > -- POC CHLORIDE mEq/L -- 106 -- 106 -- -- -- -- CHLORIDE mEq/L 107 -- -- -- 105 104 -- 104 CO2 mEq/L 21.5 -- -- -- 22.6 21.8 -- 19.5* BUN mg/dL 45* -- -- -- 45* -- -- 41* PHOSPHORUS mg/dL 4.8 -- 5.0 -- 3.7 -- -- -- < > = values in this interval not displayed. Results from last 7 daysLab Units 03/28/24 0159 03/27/24 0313 AST U/L 231* 262* ALT U/L 189* 166* Results from last 7 daysLab Units 03/27/24 0328 INR 1.20* PROTIME Seconds 15.5* PTT Seconds 30.1 No lab exists for component: "APH", "APCO2", "APO2"No lab exists for component: "POCGLU" Microbiology:No results found for the last 90 days. OTHER DATA Radiology Review:No results found. Cosigned by Yakov Cuadra MD at 03/28/2024 4:48 PM CDT Associated attestation - Yakov Cuadra MD - 03/28/2024 4:48 PM CDT The patient was seen and examined with the resident. The relevant lab results, imaging and EKGs were personally reviewed, and the medications were reconciled. I agree with above mentioned assessment and plan. Total amount of critical care time spent throughout the day excluding procedural time was - 35 minutes. The patient remain critically ill, and requires ICU level of care. -- Febrile today, pancx, empiric abx-- no longer pacing, reduce pacer to 30 bpm if not needing pacing will remove temp by tomorrow -- awake and responsive, SBT today, hopeful soon extubation -- ARF - renal consult -- Continue GI and DVT prophylaxis per ICU protocol -- Appreciate PCCM input on non-cardiac critical issues Patient Active Problem ListDiagnosis Date Noted ST elevation myocardial infarction (STEMI) of inferior wall ([facility]) 03/28/2024 Heart block 03/27/2024 Hyperglycemia due to diabetes mellitus ([facility]) ([facility]) 03/27/2024 On mechanically assisted ventilation ([facility] ([facility]) 03/27/2024 Fall 03/27/2024 GUILHERME (acute kidney injury) ([facility]) 03/27/2024 Acute respiratory alkalosis 03/27/2024 Anemia of chronic disease 03/27/2024 Toxic metabolic encephalopathy 03/27/2024 Acute hypoxemic respiratory failure ([facility]) 03/27/2024 Atelectasis 03/27/2024 Cardiogenic shock ([facility]) 03/27/2024 Severe sepsis ([facility]) 03/27/2024 Shock liver 03/27/2024 Hyperkalemia 03/27/2024 Pleural effusion, bilateral 03/27/2024 Adrenal nodule ([facility]) 03/27/2024 * Tavares Patton MD - 03/27/2024 8:36 AM CDT Associated Order(s): Inpatient consult to Cardiology Inpatient consult to Cardiology Performed by: Tavares Patton MD Authorized by: Madisyn Prather MD Assessment/Recommendations: Patient to be admitted to cardiology. Full H&P to follow * Richard Lobo MD - 03/27/2024 4:25 AM CDT Brief EP Note Female appearing to be roughly 61 years of age presents by EMS after being found down. On presentation to the emergency department she was intubated for airway protection. Afterwards found to have complete heart block with a narrow complex escape rhythm at 36, blood pressure was soft with a MAP in the 50s on arterial line. She was transcutaneously paced with concomitant improvement in her heart rate and blood pressure Bradycardia - Recommend dopamine 5 to start, can titrate up to 10. For dopamine titratation will need to pause the transcutaneous pacing to assess the underlying rhythm. - If dopamine is insufficient to get MAP >65 recommend transvenous pacing - If we are unable to reliably capture with a balloon-tip transvenous pacing, please call EP back and we will discuss screw in device Richard Lobo M.D. General Perfusionist Patient discussed with Dr. Will [id number] 16:56:07Pending Results Scheduled Orders Name Type Priority Associated Diagnoses Order Schedule UA with microscopic no culture Lab STAT STAT (Lab) for 1 Occurrences starting 03/27/2024 until 03/27/2024 POCT glucose Point of Care Testing - Docked Device Routine As needed (Lab) until discontinued starting 03/27/2024, 3 completed POCT Glucose Point of Care Testing - Docked Device Routine Every 15 minutes as needed until discontinued starting 03/27/2024 Complete Blood Count w/Manual Diff Lab STAT STAT (Lab) f or 1 Occurrences starting 03/28/2024 until 03/28/2024 Complete Blood Count Lab Timed Once for 1 Occurrences starting 03/28/2024 until 03/28/2024 Protein and Creatinine Random Urine with Ratio Lab Add-On Once (Lab) for 1 Occurrences starting 03/28/2024 until 03/28/2024 Sodium Level Urine Lab Add-On Once ( Lab) for 1 Occurrences starting 03/28/2024 until 03/28/2024 Chloride Level Urine Lab Add-On Once (Lab) for 1 Occurrences starting 03/28/2024 until 03/28/2024 Potassium Level Urine Lab Add-On Once (Lab) for 1 Occurrences starting 03/28/2024 until 03/28/2024 Creatinine Urine Lab Add-On Once (La b) for 1 Occurrences starting 03/28/2024 until 03/28/2024 Osmolality Urine Lab Add-On Once (La b) for 1 Occurrences starting 03/28/2024 until 03/28/2024 Basic Metabolic Panel Lab Add-On Once (Lab) for 1 Occurrences starting 03/28/2024 until 03/28/2024 Troponin I High Sensitivity Panel with 1 hour reflex Lab STAT STAT (Lab) fo r 1 Occurrences starting 03/29/2024 until 03/29/2024 Troponin I High Sensitivity Careset (Baseline) Lab Timed Once for 1 Occurrences starting 03/29/2024 until 03/29/2024 POCT glucose meter docked device Point of Care Testing - Docked Device Routine 4x daily - PC and at bedtime until discontinued starting 03/29/2024, 48 completed Basic Metabolic Panel Lab STAT STAT (Lab) for 1 Occurrences starting 03/29/2024 until 03/29/2024 Calcium Level Ionized Whole Blood Lab STAT STAT (Lab) f or 1 Occurrences starting 03/29/2024 until 03/29/2024 Potassium Level Urine Lab Routine Once (Lab) for 1 Occurrences starting 03/30/2024 until 03/30/2024 Sodium Level Urine Lab Routine Once ( Lab) for 1 Occurrences starting 03/30/2024 until 03/30/2024 Chloride Level Urine Lab Routine Once (Lab) for 1 Occurrences starting 03/30/2024 until 03/30/2024 Creatinine Urine Lab Routine Once (La b) for 1 Occurrences starting 03/30/2024 until 03/30/2024 Albumin-Creatinine Ratio Urine Lab Routine Once (Lab) for 1 Occurrences starting 03/30/2024 until 03/30/2024 Osmolality Urine Lab Routine Once (La b) for 1 Occurrences starting 03/30/2024 until 03/30/2024 POCT Glucose Point of Care Testing - Docked Device Routine 3 times daily before meals (Lab) for 30 Days starting 03/31/2024 until 04/29/2024, 33 completed POCT Glucose Point of Care Testing - Docked Device Routine Every 15 minutes as needed until discontinued starting 03/30/2024 Oxygen Therapy - Patient Type: Adult; Device: Nasal Cannula; Rate in liters per minute: 5 Lpm; Follow Respiratory Pathway: Yes Respiratory Care Routine For RT frequenc y use only for continuous procedures with task-based reminders at 8a and 8p until discontinued starting 04/01/2024 Check puncture site for bleeding or hematoma with each vital sign check. If bleeding or hematoma occurs, apply manual pressure immediately. Wound Ostomy Routine Until discontinu ed until discontinued starting 04/07/2024 Cardiac event monitor Cardiac Services Routine Once for 1 Occurrences starting 04/08/2024 until 04/08/2024 POCT Glucose Point of Care Testing - Docked Device Routine 3 times daily before meals (Lab) for 30 Days starting 04/09/2024 until 05/09/2024, 6 completed POCT Glucose Point of Care Testing - Docked Device Routine Every 15 minutes as needed until discontinued starting 04/09/2024 Basic Metabolic Panel AM Lab Routine Morning draw (La b) until discontinued starting 04/11/2024, 1 completed Complete Blood Count w/Diff and Platelet AM Lab Routine Morning draw (La b) until discontinued starting 04/11/2024, 1 completed Basic metabolic panel Lab Routine GUILHERME (acute kidney injury) (HCC) [N17.9] Expected: 04/18/2024 (Approximate), Expires: 04/11/2025 Cardiac event monitor Cardiac Services Routine Atrial fibrillation, unspecified type (CMS/HCC) (HCC) Expected: 04/11/2024 (Approximate), Expires: 04/11/2026 Scheduled Referrals Name Type Priority Associated Diagnoses Order Schedule Cardiac Rehabilitation Phase II Referral Outpatient Referral Routine ST elevation myocardial infarction (STEMI) of inferior wall (HCC) Expected: 03/29/2024 (Approximate), Expires: 09/26/2024 Cardiac Rehabilitation Phase II Referral Outpatient Referral Routine ST elevation myocardial infarction (STEMI) involving other coronary artery of inferior wall (HCC) Expected: 04/04/2024 (Approximate), Expires: 10/02/2024 Ambulatory referral to Cardiology Outpatient Referral Routine ST elevation myocardial infarction (STEMI) involving other coronary artery of inferior wall (HCC) Expected: 04/11/2024 (Approximate), Expires: 10/09/2024 Ambulatory referral to Cardiac Electrophysiology Outpatient Referral Routine Heart block Expected: 04/11/2024 (Approximate), Expires: 10/09/2024 Ambulatory referral to Nephrology Outpatient Referral Routine GUILHERME (acute kidney injury) (HCC) [N17.9] Expected: 04/11/2024 (Approximate), Expires: 10/09/2024 Health Maintenance Due Date Last Done Comments CT Colonography 1961 Colonoscopy 1961 Colorectal Cancer Screening 1961 FIT-DNA 1961 FIT 1961 FOBT 1961 Sigmoidoscopy 1961 Annual Physical 1964 Pneumococcal Vaccine: Pediatrics (0 to 5 Years) and At-Risk Patients (6 to 64 Years) (1 of 2 - PCV) 1967 Diabetes: Foot Exam 1971 Diabetes: Retinopathy Screening 1971 Hepatitis A Vaccines (1 of 2 - Risk 2-dose series) 1980 Pap Smear 1982 Cervical Cancer Screening 1991 HPV/Cotest 1991 Mammogram 2001 Zoster Vaccines (1 of 2) 2011 Diabetes: Urine Protein Screening 10/26/2018 10/26/2017 DTaP/Tdap/Td Vaccines (1 - Tdap) 01/10/2021 01/09/2021 Hepatitis B Vaccines (1 of 3 - Risk 3-dose series) 2021 Respiratory Syncytial Virus (RSV) or >=60 (1 - Risk 60-74 years 1-dose series) 2021 Influenza Vaccine (#1) 2024 3, 03/31/2020, 04/04/2018 Diabetes: Hemoglobin A1C 06/27/2024 024, 06/26/2021 Lipid Panel 03/27/2025 03/27/2024, 06/26/2021 HIB Vaccines Aged Out No longer eligi ble based on patient's age to complete this topic HPV Vaccines Aged Out No longer eligi ble based on patient's age to complete this topic IPV Vaccines Aged Out No longer eligi ble based on patient's age to complete this topic Meningococcal Vaccine Aged Out No kulwant rex eligible based on patient's age to complete this topic Rotavirus Vaccines Aged Out No longer eligible based on patient's age to complete this topic [facility] [id number] 16:56:07 [id number] 16:56:[address] elevation myocardial infarction (STEMI) of inferior wall (HCC) - Primary Acute myocardial infarction of other inferior wall, episode of care unspecified Heart block Unspecified conduction disorder ST elevation myocardial infa rction (STEMI) involving other coronary artery of inferior wall (HCC) Complete heart block (CMS/HCC) (HCC) Atrioventricular block, complete Severe sepsis (HCC) Shock (CMS/HCC) (HCC) Unspecified shock GUILHERME (acute kidney injury) (H CC) [N17.9] Cardiogenic shock (HCC) Cardiogenic shock Atrial fibrillation, unspeci fied type (CMS/HCC) (HCC) Heart block Unspecified conduction disorder Hyperglycemia due to diabete s mellitus (CMS/HCC) (HCC) On mechanically assisted johanna tilation (CMS/HCC) (HCC) Fall Unspecified fall GUILHERME (acute kidney injury) (H CC) Acute respiratory alkalosis Alkalosis Anemia of chronic disease Anemia of other chronic disease Toxic metabolic encephalopat hy Acute hypoxemic respiratory failure (HCC) Atelectasis Pulmonary collapse Cardiogenic shock (HCC) Cardiogenic shock Severe sepsis (HCC) Shock liver Acute and subacute necrosis of liver Hyperkalemia Hyperpotassemia Pleural effusion, bilateral Unspecified pleural effusion Adrenal nodule (HCC) Benign neoplasm of adrenal gland Shock (CMS/HCC) (HCC) Unspecified shock Pleuritic chest pain Painful respiration ST elevation myocardial infarction (STEMI) of inferior wall (HCC) Acute myocardial infarction of other inferior wall, episode of care unspecified Heart block Unspecified conduction disorder [facility]56[facility]07 [id number] 15:27:14 Images from the original note were not included. [id number] Diet for Chronic Kidney Disease Following a special diet when you have kidney disease can help you stay as healthy as possible. Your healthcare provider or dietitian should make a special diet plan just for you. Eating right Here are some good eating rules to follow: ? Protein. Eating protein is important for your body. But too much protein can put a strain on your kidneys. Eating less protein may slow the progression of chronic kidney disease. Foods high in protein include meat, fish, beans, nuts, eggs, cheese, and other dairy products. A registered dietitian can help you plan a diet that has the right amount of protein for you. ? Sodium. Having too much salt in your diet can make your body to hold onto (retain) water. Ask your provider or dietitian how much sodium per day you are allowed. This will help you prevent fluid buildup in your body (fluid retention). It can also help control high blood pressure. Learn to read food labels to find how much sodium is in one serving. Foods high in salt include processed meats, canned and boxed foods, sauces, salted chips and snacks, pickled foods, frozen dinners, and restaurant and fast food. ? Fluids. If you have advanced kidney disease, you will need to limit the water and fluids you drink. If you don?t, then too much water will build up in your body. The exact amount of fluid you can drink depends on how well your kidneys are working. Ask your provider how much water you can safely drink each day. ? Potassium. In advanced kidney disease, your potassium level can get dangerously high. This affects your heart. It can cause an irregular heartbeat (arrhythmia). Ask your provider or dietitian if you should limit potassium in your diet. Foods high in potassium include dairy products (milk, yogurt, cheese), beans, bananas, oranges, potatoes, tomatoes, spinach, cantaloupe, honeydew melon, dried fruits, and nuts. Some salt substitutes also contain potassium, so be sure to read the label before using them. ? Calcium. Calcium is important to build strong bones. But foods high in calcium are also high in phosphorus, which can take calcium from your bones. Limiting foods high in phosphorus will help keep calcium in your bones. Ask your provider how much calcium you should get each day. ? Phosphorus. In advanced kidney disease, your phosphorus level can get dangerously high. This affects many systems in the body and can damage your heart. Limit your intake of phosphorus-rich foods. These include beans and peas, nuts, peanut butter, cocoa, beer, cola drinks, and dairy products. Last Reviewed Date: 2021 00:00:00 ? [id number] [employer]. All rights reserved. This information is not intended as a substitute for professional medical care. Always follow your healthcare professional's instructions. -[facility] MedicineUniversity [id number] 15:27:13 Images from the original note were not included. [id number] Sevelamer Brand Name(s): Renagel?, Renvela?; also available generically WHY is this medicine prescribed? Sevelamer is used to control high blood levels of phosphorus in people with chronic kidney disease who are on dialysis (medical treatment to clean the blood when the kidneys are not working properly). Sevelamer is in a class of medications called phosphate binders. It binds phosphorus that you get from foods in your diet and prevents it from being absorbed into your blood stream. HOW should this medicine be used? Sevelamer comes as a tablet and as a powder for suspension to take by mouth. It is usually taken three times a day with meals. Follow the directions on your prescription label carefully, and ask your doctor or pharmacist to explain any part you do not understand. Take sevelamer exactly as directed. Do not take more or less of it or take it more often than prescribed by your doctor. Do not break or crush the tablets. Your doctor will probably adjust your dose based on your phosphorus blood levels, not more often than once every 2 weeks. If you are taking the powder for suspension, carefully read the [employer]'s instructions for use that come with the medication. These instructions describe how to prepare and measure your dose. Mix the powder with the recommended amount of water for your dose and stir the mixture vigorously. The mixture will be cloudy as the powder does not dissolve. Alternatively, you can mix the powder with a food or beverage. Do not microwave the mixture or add the powder to heated foods or liquids. Take the mixture immediately after preparation (within 30 minutes), as part of your meal. If the mixture is not taken within 30 minutes of preparing it, dispose of the mixture. Are there OTHER USES for this medicine? This medication may be prescribed for other uses; ask your doctor or pharmacist for more information. What SPECIAL PRECAUTIONS should I follow? Before taking sevelamer, ? tell your doctor and pharmacist if you are allergic to sevelamer, any other medications, or any of the ingredients in sevelamer tablets or powder for suspension. Ask your pharmacist for a list of the ingredients. ? tell your doctor and pharmacist what prescription and nonprescription medications, vitamins, nutritional supplements, and herbal products you are taking or plan to take while taking sevelamer. Your doctor may need to change the doses of your medications or monitor you carefully for side effects.. ? if you are taking cyclosporine (Gengraf, Neoral, Sandimmune), levothyroxine (Levo-T, Synthroid, Tirosint, others), or tacrolimus (Astagraf, Prograf, Protopic), you should take them at least 1 hour before or 3 hours after you have taken sevelamer. Take ciprofloxacin (Cipro) at least 2 hours before or 6 hours after taking sevelamer. Also, take mycophenolate (Cellcept) at least 2 hours before taking sevelamer. ? tell your doctor if you have a blockage of your stomach or intestines. Your doctor will probably tell you not to take sevelamer. ? tell your doctor if you have difficulty swallowing, or have or have ever had stomach or bowel problems including ulcers (sores in the lining of the stomach or intestine), an inflammatory bowel disease, constipation, or have had surgery on your stomach or intestines. ? tell your doctor if you are , plan to become , or are . If you become while taking sevelamer, call your doctor. ? you should know that sevelamer may decrease levels of vitamins and folic acid in the body. Talk to your doctor to see if you need to take additional amount of these vitamins during your treatment with sevelamer. What SPECIAL DIETARY instructions should I follow? Your doctor may instruct you to follow a low-phosphorus diet. Follow these directions carefully. Talk to your doctor about foods that contain high amounts of phosphorus. What should I do IF I FORGET to take a dose? Skip the missed dose and continue your regular dosing schedule. Do not take a double dose to make up for a missed one. What SIDE EFFECTS can this medicine cause? Sevelamer may cause side effects. Tell your doctor if any of these symptoms are severe or do not go away: ? diarrhea ? vomiting ? nausea ? stomach pain ? gas ? heartburn ? new or worsening constipation Some side effects can be serious. If you experience any of these symptoms, call your doctor immediately or get emergency medical treatment: ? black and tarry stools ? red blood in stools Sevelamer may cause other side effects. Call your doctor if you have any unusual problems while taking this medication. If you experience a serious side effect, you or your doctor may send a report to the Food and Drug Administration's (FDA) MedWatch Adverse Event Reporting program online (https://www.fda.gov/Safety/MedWatch) or by phone ( ). What should I know about STORAGE and DISPOSAL of this medication? Keep this medication in the container it came in, tightly closed, and out of reach of children. Store it at room temperature and away from excess heat and moisture (not in the bathroom). It is important to keep all medication out of sight and reach of children as many containers (such as weekly pill minders and those for eye drops, creams, patches, and inhalers) are not child-resistant and young children can open them easily. To protect young children from poisoning, always lock safety caps and immediately place the medication in a safe location - one that is up and away and out of their sight and reach. https://www.[employer].org Unneeded medications should be disposed of in special ways to ensure that pets, children, and other people cannot consume them. However, you should not flush this medication down the toilet. Instead, the best way to dispose of your medication is through a medicine take-back program. Talk to your pharmacist or contact your local garbage/recycling department to learn about take-back programs in your community. See the FDA's Safe Disposal of Medicines website (https://goo.gl/c4Rm4p) for more information if you do not have access to a take-back program. What OTHER INFORMATION should I know? Keep all appointments with your doctor and the laboratory. Your doctor will order certain lab tests to determine your response to sevelamer. Do not let anyone else take your medication. Ask your pharmacist any questions you have about refilling your prescription. It is important for you to keep a written list of all of the prescription and nonprescription ([id number]) medicines you are taking, as well as any products such as vitamins, minerals, or other dietary supplements. You should bring this list with you each time you visit a doctor or if you are admitted to a hospital. It is also important information to carry with you in case of emergencies. This report on medications is for your information only, and is not considered individual patient advice. Because of the changing nature of drug information, please consult your physician or pharmacist about specific clinical use. The [employer] represents that the information provided hereunder was formulated with a reasonable standard of care, and in conformity with professional standards in the field. The [employer] makes no representations or warranties, express or implied, including, but not limited to, any implied warranty of merchantability and/or fitness for a particular purpose, with respect to such information and specifically disclaims all such warranties. Users are advised that decisions regarding drug therapy are complex medical decisions requiring the independent, informed decision of an appropriate health care professionals, and the information is provided for informational purposes only. The entire monograph for a drug should be reviewed for a thorough understanding of the drug's actions, uses and side effects. The [employer] does not endorse or recommend the use of any drug. The information is not a substitute for medical care. AHFS? Patient Medication Information?. ? Copyright, 2023. [employer]?, [address], [address], [place], [place]. All Rights Reserved. Duplication for commercial use must be authorized by [facility]. Selected Revisions: December 17, 2023. AHFS? Patient Medication Information?. ? Copyright, 2023 [facility]2024-11-13 12:08:09 Images from the original note were not included. [id number] Tunneled Catheters for Hemodialysis Hemodialysis is a type of treatment for kidney failure (end-stage kidney disease or ESRD). During hemodialysis, blood is removed from your body and filtered through a dialysis machine (dialyzer). The filtered blood is then returned to your body. Before hemodialysis can be done, you need a way to access your bloodstream (called a vascular access). There are 3 types of vascular access for hemodialysis: ? Arteriovenous (AV) fistula ? AV graft ? Tunneled catheter This sheet focuses on tunneled catheters. What is a tunneled catheter? Both the AV fistula and AV graft are the main types of vascular access. They are used for permanent access. Both require surgery to put in place. And it can take a few weeks for them to be ready to use. A tunneled catheter is an option for short-term use or when other vascular access can?t be used. The catheter is a thin, plastic tube that?s put into a large blood vessel, usually in the neck or chest. It?s called tunneled because it?s inserted under the skin. One end of the catheter is put into the blood vessel. The other end remains outside your body. There is a cap on the end that?s outside your body. This cap must stay tightly closed except when you have hemodialysis. Then a dialysis steam pan sponger removes the cap and attaches the catheter to the dialysis machine. The cap is put back on again after dialysis. Unlike an AV fistula or graft, a tunneled catheter doesn?t require any surgery. So once the catheter is in place, it can be used right away. There?s also no need to puncture the skin to access the vein each time you have dialysis. A tunneled catheter has 2 access ports: ? Red (arterial). This port is used to take blood out of your vein and into the dialysis machine. ? Blue (venous). This port is used to return the cleaned blood to your body. When is a tunneled catheter used? A tunneled catheter is used when vascular access is needed right away. It?s used when someone: ? Needs emergency (acute) dialysis ? Is waiting for a kidney transplant ? Is waiting to have an AV fistula or graft put in ? Can?t have an AV fistula or graft because their blood vessels are too weak There are 2 types of tunneled catheters: non-cuffed and cuffed. ? Non-cuffed tunneled catheters. These are used in emergency dialysis. They can be used for about 3 weeks. ? Cuffed tunneled catheters. These may be used for longer than 3 weeks in some cases. For instance, if someone is getting an AV fistula or graft, but it?s not ready yet. Or if someone is unable to have a fistula or graft. Caring for a tunneled catheter To prevent infection, it?s vital to keep a tunneled catheter clean and dry at all times. Follow these tips to keep your catheter working well and prevent complications: ? Always keep the dressing around the catheter dry and clean. ? Always keep the cap at the end of the catheter closed. Never open it. Only a dialysis steam pan sponger should open the cap. ? Be sure your dialysis care team always changes the dressing each time you get dialysis. ? Don?t touch the catheter. Doing so can lead to infection. ? Never use scissors or other sharp objects near the catheter. ? Keep a mask over your mouth and nose whenever a dialysis steam pan sponger opens the catheter. This prevents bacteria from getting into the catheter and into your blood. Dialysis team members who change your dressing should always use a mask and gloves too. ? Be very careful when bathing or showering. Always use a clear, waterproof dressing. This should stick to the catheter site and the skin around it. It also lets you see if there?s an infection. Never let the catheter get wet or go under water. If possible, use a handheld shower head. Keep the water spray away from your catheter. ? Always have emergency dressing supplies on hand. There may be times when you need to redo the dressing. Your dialysis team can show you how to do this. Risks and possible complications A tunneled catheter has the following risks and possible complications: ? The catheter can get infected ? Blood clots can form, reducing blood flow ? It can damage the vein in your neck ? It may not be comfortable When to call your healthcare provider Call your healthcare provider or your dialysis team right away if any of these occur after a tunneled catheter is inserted: ? Signs of a catheter infection, such as: o Redness, warmth, or pain at the catheter exit site o Itching or swelling around your catheter o Fluid leaking from the catheter exit site o Fever o Chills ? The catheter is pulled out by mistake and there?s bleeding at the exit site ? The catheter is damaged (there is a crack, cut, or hole in it) ? You?re injured at the catheter exit site Last Reviewed Date: 2021 00:00:00 ? [id number] [employer]. All rights reserved. This information is not intended as a substitute for professional medical care. Always follow your healthcare professional's instructions. [facility]2024-11-13 12:08:09 Images from the original note were not included. [id number] Hemodialysis Hemodialysis is a type of treatment for kidney failure (end-stage kidney disease or ESRD). It uses a machine that holds a filter called a dialyzer. As blood flows through the dialyzer, waste is removed and fluid and chemicals are balanced. Hemodialysis treatments are usually done at a special dialysis center. In some cases, treatments may be done at home. As the kidney failure is getting worse, your doctor may advise you to have access placed by a surgeon into one of your arms ahead of time. This access may take several weeks to mature before it can be used for hemodialysis. How hemodialysis is done Two needles are inserted into a blood vessel (called an arteriovenous fistula or AV fistula) or arteriovenous graft (or AV graft), usually in your arm. Each needle is attached to a tube. One tube carries your blood into the dialyzer, where it's cleaned. Clean blood returns to your body through a second tube and needle. If the AV fistula or graft has been placed but it's not ready to use, or if options for permanent access aren't appropriate, you may have a dialysis catheter placed in a large blood vessel. The catheter is usually for temporary access. But if there is no other option, it may be used long-term (permanently). This catheter helps carry blood to and from the dialysis machine. Your experience: Problems to watch for ? Hemodialysis usually takes about 3 to 5 hours. It's usually done 3 times a week. ? You?ll have a regular schedule for your hemodialysis. Many centers have evening and weekend hours as well as weekday hours to help you continue working. Some centers also offer overnight treatments. ? A trained nurse or windshield repair technician connects you to the dialysis machine. They watch for problems and make sure you are comfortable. ? During treatment, only a small amount of blood (about 1 cup) is out of your body at any one time. ? During your treatments, you may have a headache, muscle cramps, nausea and vomiting, chest and back pain, itching, and fever and chills. Make sure you tell your nurse or windshield repair technician if you have any of these symptoms. ? Some people are able to learn to use a dialysis machine at home. Home dialysis lets you schedule treatments when it's most convenient. You may have more frequent treatments, but for shorter periods of time. You may also do overnight treatments. Get immediate medical help or call your healthcare provider, nurse, or copier field service technician if you have any of these symptoms after treatment: ? Chest or back pain ? Tiredness (fatigue) ? Bleeding from the needle site, if your dialysis access is through an AV fistula or graft ? Drainage from the catheter exit site, if your dialysis access is through a catheter ? Shortness of breath ? Fever or chills ? Headache or lightheadedness ? Nausea or vomiting ? Itching ? Muscle cramps ? Pain, warmth, or redness at your access site ? Inability to feel your blood flow (called a thrill) in your AV fistula or graft, if your dialysis access is through an AV fistula or graft Last Reviewed Date: 2024 00:00:00 ? [id number] [employer]. All rights reserved. This information is not intended as a substitute for professional medical care. Always follow your healthcare professional's instructions. [facility]2024-11-13 12:08:09 Images from the original note were not included. End Stage Renal Disease - Video More than 600,000 Americans have End Stage Renal Disease, where their kidneys only function at 15% of normal. At this stage of kidney disease, a patient must go on dialysis or receive a kidney transplant in order to survive. This program will explain what ESRD looks like and will offer suggestions for transitioning into this stage of chronic kidney disease. To view the video go to this web address: https://bit.[email or web address] Or, scan this QR code with your smart phone ? [facility] 12[facility]08:08 Images from the original note were not included. [id number] Clopidogrel Brand Name(s): Plavix?; also available generically IMPORTANT WARNING: Clopidogrel must be changed to an active form in your body so that it can treat your condition. Some people do not change clopidogrel to its active form in the body as well as other people. Because the medication does not work as well in these people, they may be at a higher risk of having a heart attack or stroke. There are tests available to identify people who have trouble changing clopidogrel to an active form. Talk to your doctor about whether you should be tested. If you are found to have difficulty converting clopidogrel to its active form, your doctor may change your dose of clopidogrel or tell you not to take clopidogrel. Your doctor or pharmacist will give you the [employer]'s patient information sheet (Medication Guide) when you begin treatment with clopidogrel and each time you refill your prescription. Read the information carefully and ask your doctor or pharmacist if you have any questions. You can also visit the Food and Drug Administration (FDA) website (https://www.fda.gov/Drugs/DrugSafety/gep516808.htm) or the [employer] professor's website to obtain the Medication Guide. Talk to your doctor about the risks of taking clopidogrel. WHY is this medicine prescribed? Clopidogrel is used alone or with aspirin to prevent serious or life-threatening problems with the heart and blood vessels in people who have had a stroke, heart attack, or severe chest pain. This includes people who have percutaneous coronary intervention (PCI; angioplasty; a type of heart surgery) that may involve inserting coronary stents (metal tubes surgically placed in clogged blood vessels to improve blood flow) or who have coronary artery bypass grafting (CABG; a type of heart surgery). Clopidogrel is also used to prevent serious or life-threatening problems with the heart and blood vessels in people who have peripheral arterial disease (poor circulation in the blood vessels that supply blood to the legs). Clopidogrel is in a class of medications called antiplatelet medications. It works by preventing platelets (a type of blood cell) from collecting and forming clots that may cause a heart attack or stroke. HOW should this medicine be used? Clopidogrel comes as a tablet to take by mouth. It is usually taken once a day with or without food. Take clopidogrel at around the same time every day. Follow the directions on your prescription label carefully, and ask your doctor or pharmacist to explain any part you do not understand. Take clopidogrel exactly as directed. Do not take more or less of it or take it more often than prescribed by your doctor. Clopidogrel will help prevent serious problems with your heart and blood vessels only as long as you take the medication. Continue to take clopidogrel even if you feel well. Do not stop taking clopidogrel without talking to your doctor. If you stop taking clopidogrel, there is a higher risk that you may have a heart attack or stroke. If you have a stent, there is also a higher risk that you could develop a blood clot in the stent if you stop taking clopidogrel too soon. Are there OTHER USES for this medicine? Clopidogrel is also sometimes used to prevent blood clots in people with atrial fibrillation (a condition in which the heart beats irregularly). Talk to your doctor about the possible risks of using this medication for your condition. This medication may be prescribed for other uses; ask your doctor or pharmacist for more information. What SPECIAL PRECAUTIONS should I follow? Before taking clopidogrel, ? tell your doctor and pharmacist if you are allergic to clopidogrel, prasugrel (Effient), ticlopidine, any other medications, or any ingredient in clopidogrel tablets. Ask your pharmacist or check the Medication Guide for a list of the ingredients. ? tell your doctor and pharmacist what other prescription and nonprescription medications, vitamins, nutritional supplements, and herbal products you are taking or plan to take while taking clopidogrel. Your doctor may need to change the doses of your medications or monitor you carefully for side effects. . ? The following nonprescription products may interact with clopidogrel: omeprazole (Prilosec, Prilosec OTC, Zegerid); esomeprazole (Nexium); aspirin and other nonsteroidal anti-inflammatory drugs (NSAIDs) such as ibuprofen (Advil, Motrin) and naproxen (Aleve, Naprosyn). Be sure to let your doctor and pharmacist know that you are taking these medications before you start taking clopidogrel. Do not start any of these medications while taking clopidogrel without discussing with your healthcare provider. ? tell your doctor if you have bleeding ulcers (sores in the lining of the stomach or small intestine that are bleeding), bleeding in the brain, or any other condition that causes severe bleeding. Your doctor may tell you that you should not take clopidogrel. ? tell your doctor if you have recently been injured and if you have or have ever had liver or kidney disease or any condition that may cause bleeding, including stomach problems such as ulcers. ? tell your doctor if you are , plan to become , or are breast-feeding. If you become while taking clopidogrel, call your doctor. ? if you are having surgery, including dental surgery, tell the doctor or dentist that you are taking clopidogrel. Your doctor may tell you to stop taking clopidogrel at least 5 days prior to your surgery to avoid excessive bleeding during surgery. Your doctor will tell you when to start taking clopidogrel again after your surgery. ? you should know that you may bleed more easily or for a longer time than usual while you are taking clopidogrel. Be careful not to cut or hurt yourself while you are taking clopidogrel. What SPECIAL DIETARY instructions should I follow? Unless your doctor tells you otherwise, continue your normal diet. What should I do IF I FORGET to take a dose? Take the missed dose as soon as you remember it. However, if it is almost time for the next dose, skip the missed dose and continue your regular dosing schedule. Do not take a double dose to make up for a missed one. What SIDE EFFECTS can this medicine cause? Clopidogrel may cause side effects. Tell your doctor if any of these symptoms are severe or do not go away: ? excessive tiredness ? headache ? dizziness ? nausea ? vomiting ? stomach pain ? diarrhea ? nosebleed Some side effects can be serious. If you experience any of the following symptoms, call your doctor immediately: ? hives ? rash ? itching ? difficulty breathing or swallowing ? swelling of the face, throat, tongue, lips, eyes, hands, feet, ankles, or lower legs ? hoarseness ? black and tarry stools ? red blood in stools ? bloody vomit ? vomit that looks like coffee grounds ? unusual bleeding or bruising ? pink or brown urine ? slow or difficult speech ? weakness or numbness of an arm or a leg ? changes in vision ? fever ? shortness of breath ? fast heartbeat ? pale skin ? purple patches or bleeding under the skin ? confusion ? yellowing of the skin or eyes ? seizures Clopidogrel may cause other side effects. Call your doctor if you have any unusual problems while taking this medication. If you experience a serious side effect, you or your doctor may send a report to the Food and Drug Administration's (FDA) MedWatch Adverse Event Reporting program online (https://www.fda.gov/Safety/MedWatch) or by phone ( ). What should I know about STORAGE and DISPOSAL of this medication? Keep this medication in the container it came in, tightly closed, and out of reach of children. Store it at room temperature and away from excess heat and moisture (not in the bathroom). Unneeded medications should be disposed of in special ways to ensure that pets, children, and other people cannot consume them. However, you should not flush this medication down the toilet. Instead, the best way to dispose of your medication is through a medicine take-back program. Talk to your pharmacist or contact your local garbage/recycling department to learn about take-back programs in your community. See the FDA's Safe Disposal of Medicines website (https://goo.gl/c4Rm4p) for more information if you do not have access to a take-back program. It is important to keep all medication out of sight and reach of children as many containers (such as weekly pill minders and those for eye drops, creams, patches, and inhalers) are not child-resistant and young children can open them easily. To protect young children from poisoning, always lock safety caps and immediately place the medication in a safe location - one that is up and away and out of their sight and reach. https://www.upandaway.org What should I do in case of OVERDOSE? In case of overdose, call the poison control helpline at . Information is also available online at https://www.poisonhelp.org/help. If the victim has collapsed, had a seizure, has trouble breathing, or can't be awakened, immediately call emergency services at 662. Symptoms of overdose may include the following: ? unusual bruising or bleeding What OTHER INFORMATION should I know? Keep all appointments with your doctor. Do not let anyone else take your medication. Ask your pharmacist any questions you have about refilling your prescription. It is important for you to keep a written list of all of the prescription and nonprescription (erww-zrn-nmcfmuz) medicines you are taking, as well as any products such as vitamins, minerals, or other dietary supplements. You should bring this list with you each time you visit a doctor or if you are admitted to a hospital. It is also important information to carry with you in case of emergencies. This report on medications is for your information only, and is not considered individual patient advice. Because of the changing nature of drug information, please consult your physician or pharmacist about specific clinical use. The [employer] represents that the information provided hereunder was formulated with a reasonable standard of care, and in conformity with professional standards in the field. The [employer] makes no representations or warranties, express or implied, including, but not limited to, any implied warranty of merchantability and/or fitness for a particular purpose, with respect to such information and specifically disclaims all such warranties. Users are advised that decisions regarding drug therapy are complex medical decisions requiring the independent, informed decision of an appropriate health care professionals, and the information is provided for informational purposes only. The entire monograph for a drug should be reviewed for a thorough understanding of the drug's actions, uses and side effects. The [employer] does not endorse or recommend the use of any drug. The information is not a substitute for medical care. AHFS? Patient Medication Information?. ? Copyright, 2023. [employer]?, [address], [address], [place], [place]. All Rights Reserved. Duplication for commercial use must be authorized by [facility]. Selected Revisions: November 17, 2023. AHFS? Patient Medication Information?. ? Copyright, 2023 [facility]2024-11-13 12:08:08 Images from the original note were not included. [id number] Bumetanide Brand Name(s): Bumex?; also available generically IMPORTANT WARNING: Bumetanide is a strong diuretic ('water pill') and may cause dehydration and electrolyte imbalance. It is important that you take it exactly as told by your doctor. If you experience any of the following symptoms, call your doctor immediately: rapid, excessive weight loss; decreased urination; dry mouth; thirst; nausea; vomiting; weakness; drowsiness; confusion; muscle pain or cramps; or rapid or pounding heartbeats. WHY is this medicine prescribed? Bumetanide is used to treat edema (fluid retention; excess fluid held in body tissues) caused by various medical problems, including heart, kidney, and liver disease. Bumetanide is in a class of medications called diuretics ('water pills'). It works by causing the kidneys to get rid of unneeded water and salt from the body into the urine. HOW should this medicine be used? Bumetanide comes as a tablet to take by mouth. It usually is taken once a day. When used to treat edema, a second or third dose may be given every 4 to 5 hours depending on the amount of swelling. Follow the directions on your prescription label carefully, and ask your doctor or pharmacist to explain any part you do not understand. Take bumetanide exactly as directed. Do not take more or less of it or take it more often than prescribed by your doctor. Bumetanide controls edema but does not cure it. Continue to take bumetanide even if you feel well. Do not stop taking bumetanide without talking to your doctor. Are there OTHER USES for this medicine? Bumetanide is also sometimes used to treat high blood pressure. Talk to your doctor about the risks of using this medication for your condition. This medicine is sometimes prescribed for other uses; ask your doctor or pharmacist for more information. What SPECIAL PRECAUTIONS should I follow? Before taking bumetanide, ? tell your doctor and pharmacist if you are allergic to bumetanide, sulfonamide medications, any other medications, or any ingredients in bumetanide tablets. Ask your pharmacist or check the patient information for a list of the ingredients. ? tell your doctor and pharmacist what prescription and nonprescription medications, vitamins, nutritional supplements, and herbal products you are taking or plan to take while taking bumetanide. Your doctor may need to change the doses of your medications or monitor you carefully for side effects. ? tell your doctor if you have kidney disease. Your doctor may tell you not to take bumetanide. ? tell your doctor if you have or have ever had diabetes, or heart, or liver disease. ? tell your doctor if you are , plan to become , or are breast-feeding. Do not breast-feed while taking this medicine. If you become while taking bumetanide, call your doctor. ? if you are having surgery, including dental surgery, tell the doctor or dentist that you are taking bumetanide. What SPECIAL DIETARY instructions should I follow? If your doctor prescribes a low-salt or low-sodium diet, or to eat or drink increased amounts of potassium-rich foods (e.g., bananas, prunes, raisins, and orange juice) in your diet, follow these instructions carefully. What should I do IF I FORGET to take a dose? Take the missed dose as soon as you remember it. However, if it is almost time for your next dose, skip the missed dose and continue your regular dosing schedule. Do not take a double dose to make up for a missed one. What SIDE EFFECTS can this medicine cause? Tell your doctor if any of these symptoms are severe or do not go away: ? frequent urination ? dizziness ? upset stomach ? diarrhea Some side effects can be serious. If you have any of these symptoms or those listed in the IMPORTANT WARNING section, call your doctor immediately or get emergency medical treatment:: ? ringing in ears ? loss of hearing ? unusual bleeding or bruising ? severe rash with peeling skin ? difficulty breathing or swallowing ? hives If you experience a serious side effect, you or your doctor may send a report to the Food and Drug Administration's (FDA) MedWatch Adverse Event Reporting program online (https://www.fda.gov/Safety/MedWatch) or by phone ( ). What should I know about STORAGE and DISPOSAL of this medication? Keep this medicine in the container it came in, tightly closed, and out of reach of children. Store it at room temperature and away from excess heat and moisture (not in the bathroom). It is important to keep all medication out of sight and reach of children as many containers (such as weekly pill minders and those for eye drops, creams, patches, and inhalers) are not child-resistant and young children can open them easily. To protect young children from poisoning, always lock safety caps and immediately place the medication in a safe location - one that is up and away and out of their sight and reach. https://www.[employer].org Unneeded medications should be disposed of in special ways to ensure that pets, children, and other people cannot consume them. However, you should not flush this medication down the toilet. Instead, the best way to dispose of your medication is through a medicine take-back program. Talk to your pharmacist or contact your local garbage/recycling department to learn about take-back programs in your community. See the FDA's Safe Disposal of Medicines website (https://goo.gl/c4Rm4p) for more information if you do not have access to a take-back program. What should I do in case of OVERDOSE? In case of overdose, call the poison control helpline at . Information is also available online at https://www.poisonhelp.org/help. If the victim has collapsed, had a seizure, has trouble breathing, or can't be awakened, immediately call emergency services at 911. Symptoms of overdose may include: ? weakness ? dizziness ? confusion ? extreme tiredness ? loss of appetite ? vomiting ? stomach cramps What OTHER INFORMATION should I know? Keep all appointments with your doctor and the laboratory. Before having any laboratory test, tell your doctor and the laboratory personnel that you are taking bumetanide. Do not let anyone else take your medicine. Ask your pharmacist any questions you have about refilling your prescription. It is important for you to keep a written list of all of the prescription and nonprescription (ccdw-tgv-vkulovt) medicines you are taking, as well as any products such as vitamins, minerals, or other dietary supplements. You should bring this list with you each time you visit a doctor or if you are admitted to a hospital. It is also important information to carry with you in case of emergencies. This report on medications is for your information only, and is not considered individual patient advice. Because of the changing nature of drug information, please consult your physician or pharmacist about specific clinical use. The [employer] represents that the information provided hereunder was formulated with a reasonable standard of care, and in conformity with professional standards in the field. The [employer] makes no representations or warranties, express or implied, including, but not limited to, any implied warranty of merchantability and/or fitness for a particular purpose, with respect to such information and specifically disclaims all such warranties. Users are advised that decisions regarding drug therapy are complex medical decisions requiring the independent, informed decision of an appropriate health care professionals, and the information is provided for informational purposes only. The entire monograph for a drug should be reviewed for a thorough understanding of the drug's actions, uses and side effects. [employer] does not endorse or recommend the use of any drug. The information is not a substitute for medical care. AHFS? Patient Medication Information?. ? Copyright, 2023. [employer]?, [address], [address], [place], [place]. All Rights Reserved. Duplication for commercial use must be authorized by [facility]. Selected Revisions: March 13, 2017. AHFS? Patient Medication Information?. ? Copyright, 2023 [facility] [id number] 12:08:08 Images from the original note were not included. [id number] Coronary Stents A stent is a small metal coil or mesh tube that is placed in a narrowed artery to hold it open. This helps improve blood flow to your heart. The stent also helps keep the artery from re-narrowing (restenosis). Most stents are coated and slowly release medicine over a time. This reduces the amount of scar tissue that forms in the artery, helping prevent restenosis. A emergency management specialist called an quality assurance auditor does coronary angioplasty and stenting. During the procedure ? A member of your healthcare team will numb the skin at the insertion site with a local anesthetic. This is usually the groin or the wrist with a local anesthetic. They will make a needle puncture to insert the catheter. ? Your doctor will insert a guide wire through the thin, flexible tube (catheter) and move it to the narrow spot in your heart's artery. Your doctor tracks its movement using pulsed X-ray called fluoroscopy. An angiogram will be done which is an X-ray movie of heart artery blood flow using contrast. This identifies the location of the stenosis. ? Your doctor will then insert a balloon-tipped catheter through the guide catheter and thread it over the guide wire. They will position it at the narrow part of the artery. ? Your doctor will deliver a stent mounted on a balloon-tipped catheter to the blockage in your artery. ? They will inflate the balloon to expand the stent. ? The expanded stent further compresses the plaque against the artery wall, increasing and restoring the blood flow to the heart muscle. After the procedure ? Your doctor will give you medicine to prevent blood clots from forming on the new stent. You will continue to take this medicine until the stent and artery have healed. Your healthcare team will tell you how long you should take this. Your doctor will give you a prescription before you go home. This prescription is often for a medicine called clopidogrel or others like it. This medicine is taken with aspirin to prevent blood clots from forming inside the newly opened area of the artery. ? If the insertion site was in your groin, you may need to lie down with your leg still for several hours. The amount of time may depend on whether a closure device such as a stitch or collagen plug was used to close the opening made in your artery. The time you must be still may be shorter if one of these devices was used. The amount of time will also depend on if there is any bleeding at the artery site. ? If the insertion site was in your wrist, a pressure band may be used to hold pressure on the wrist. It's slowly removed once there is no sign of bleeding. ? A nurse will check your blood pressure and the insertion site. ? You may be asked to drink fluid to help flush the contrast liquid out of your system. ? You will likely be given other prescriptions to prevent other areas of the arteries from narrowing. This includes medicine to control cholesterol, such as statins. You may also get a beta zac to prevent a heart attack. Nitroglycerin is prescribed to treat episodes of chest pain (angina) if this occurs. Don't mix nitroglycerin with medicines that are used to treat erectile dysfunction or pulmonary hypertension. This can cause a dangerous drop in your blood pressure. ? You need to have a follow up appointments to check how well you respond to the stent and new medicines. This can be as early as a week or maybe within 2 to 4 weeks after your coronary stent placement. ? You may be able to go home the same day. Or you may spend the night in the hospital after your procedure. Your stay may be longer depending on your condition and the results of your procedure. You will get instructions for what to do when you go home to help you recover. ? Have someone drive you home from the hospital. ? It?s normal to find a small bruise or lump at the insertion site. This should disappear within a few weeks. Let your healthcare provider know if the bruise is large or very uncomfortable. ? You will be given discharge instructions that tell you how to keep the puncture site clean and dry and what activity restrictions you may have after your procedure. Make sure you ask your healthcare team about any questions or concerns you have after your procedure. When to call your healthcare provider Call your healthcare provider right away if you have any of the following: ? Increasing pain, swelling, redness, bleeding, extensive bruising, or drainage at the insertion site ? Fever of 100.4?F (38?C) or higher, or as directed by your healthcare provider ? Symptoms of infection such as redness, swelling, drainage, or warmth at the insertion site ? Trouble urinating ? Blood in your urine ? Black or tarry stools ? Any unusual bleeding ? Irregular, very slow, or fast heartbeat ? Dizziness Call 911 Call 911 if any of the following occur: ? Pain or discomfort in the chest, back, neck, throat, jaw, arms, or shoulders ? Trouble breathing ? Sudden numbness or weakness in arms, legs, or face, or difficulty speaking ? The insertion site swells up very fast ? Bleeding from the insertion site that does not slow down with firm pressure ? Severe pain, coldness, numbness, or a bluish color in the leg or arm that held the catheter Last Reviewed Date: 2023 00:00:00 ? [id number] [employer]. All rights reserved. This information is not intended as a substitute for professional medical care. Always follow your healthcare professional's instructions. [facility]2024-11-13 12:08:07 Images from the original note were not included. [id number] Apixaban Brand Name(s): Eliquis?; also available generically IMPORTANT WARNING: If you have atrial fibrillation (a condition in which the heart beats irregularly, increasing the chance of clots forming in the body, and possibly causing strokes) and are taking apixaban to help prevent strokes or serious blood clots, you are at a higher risk of having a stroke after you stop taking this medication. Do not stop taking apixaban without talking to your doctor. Continue to take apixaban even if you feel well. Be sure to refill your prescription before you run out of medication so that you will not miss any doses of apixaban. If you need to stop taking apixaban, your doctor may prescribe another anticoagulant ('blood thinner') to help prevent a blood clot from forming and causing you to have a stroke. If you have epidural or spinal anesthesia or a spinal puncture while taking a 'blood thinner' such as apixaban, you are at risk of having a blood clot form in or around your spine that could cause you to become paralyzed. Tell your doctor if you have an epidural catheter that is left in your body or have or have ever had repeated epidural or spinal punctures, spinal deformity, or spinal surgery. Tell your doctor and pharmacist if you are taking any of the following: anagrelide (Agrylin); aspirin and other nonsteroidal anti-inflammatory drugs (NSAIDs) such as ibuprofen (Advil, Motrin, others), indomethacin (Indocin, Tivorbex), ketoprofen, and naproxen (Aleve, Anaprox, others); cilostazol (Pletal); clopidogrel (Plavix); dipyridamole (Persantine); eptifibatide (Integrilin); heparin; prasugrel (Effient); ticagrelor (Brilinta); ticlopidine; tirofiban (Aggrastat), and warfarin (Coumadin, Jantoven). If you experience any of the following symptoms, call your doctor immediately: muscle weakness (especially in your legs and feet), numbness or tingling (especially in your legs), or loss of control of your bowels or bladder. Your doctor or pharmacist will give you the [employer]'s patient information sheet (Medication Guide) when you begin treatment with apixaban and each time you refill your prescription. Read the information carefully and ask your doctor or pharmacist if you have any questions. You can also visit the Food and Drug Administration (FDA) website (https://www.fda.gov/Drugs/DrugSafety/hmz804086.htm) or the [employer]'s website to obtain the Medication Guide. Talk to your doctor about the risks of taking apixaban. WHY is this medicine prescribed? Apixaban is used to help prevent strokes or blood clots in people who have atrial fibrillation (a condition in which the heart beats irregularly, increasing the chance of clots forming in the body and possibly causing strokes) that is not caused by heart valve disease. Apixaban is also used to prevent deep vein thrombosis (DVT; a blood clot, usually in the leg) and pulmonary embolism (PE; a blood clot in the lung) in people who are having hip replacement or knee replacement surgery. Apixaban is also used to treat DVT and PE and may be continued to prevent DVT and PE from happening again after the initial treatment is completed. Apixaban is in a class of medications called factor Xa inhibitors. It works by blocking the action of a certain natural substance that helps blood clots to form. HOW should this medicine be used? Apixaban comes as a tablet to take by mouth. It is usually taken with or without food twice a day. When apixaban is taken to prevent DVT and PE after hip or knee replacement surgery, the first dose should be taken at least 12 to 24 hours after surgery. Apixaban is usually taken for 35 days after a hip replacement surgery and for 12 days after knee replacement surgery. Take apixaban at around the same times every day. Follow the directions on your prescription label carefully, and ask your doctor or pharmacist to explain any part you do not understand. Take apixaban exactly as directed. Do not take more or less of it or take it more often than prescribed by your doctor. If you are unable to swallow the tablets, you can crush them and mix with water, apple juice, or applesauce. Swallow the mixture right after you prepare it. Apixaban can also be given in certain types of feeding tubes. Ask your doctor if you should take this medication in your feeding tube. Follow your doctor's directions carefully. Continue to take apixaban even if you feel well. Do not stop taking apixaban without talking to your doctor. If you stop taking apixaban, your risk of a blood clot may increase. Are there OTHER USES for this medicine? This medication may be prescribed for other uses; ask your doctor or pharmacist for more information. What SPECIAL PRECAUTIONS should I follow? Before taking apixaban, ? tell your doctor and pharmacist if you are allergic to apixaban, any other medications, or any of the ingredients in apixaban tablets. Ask your pharmacist or check the Medication Guide for a list of the ingredients. ? Tell your doctor and pharmacist what prescription and nonprescription medications, vitamins, nutritional supplements, and herbal products you are taking or plan to take while taking apixaban. Your doctor may need to change the doses of your medications or monitor you carefully for side effects.. ? The following nonprescription or herbal products may interact with apixaban: [place]'s wort; aspirin; NSAIDs (such as ibuprofen [Advil, Motrin] and naproxen [Aleve, Naprosyn]). Be sure to let your doctor and pharmacist know that you are taking these medications before you start taking apixaban. Do not start any of these medications while taking apixaban without discussing with your healthcare provider. ? you should know that apixaban may interact with certain medications that may be used to treat you if you have a stroke or other medical emergency. In case of an emergency, you or a family member should tell the doctor or emergency room staff who treat you that you are taking apixaban. ? tell your doctor if you have an artificial heart valve or if you have heavy bleeding anywhere in your body that cannot be stopped. Your doctor will probably tell you not to take apixaban. ? tell your doctor if you have or have ever had any type of bleeding problem, antiphospholipid syndrome (APS; a condition that causes blood clots), or kidney or liver disease. ? tell your doctor if you are , plan to become , or are . If you become while taking apixaban, call your doctor. ? if you are having surgery, including dental surgery, tell the doctor or dentist that you are taking apixaban. Your doctor may tell you to stop taking apixaban before the surgery or procedure. If you need to stop taking apixaban because you are having surgery, your doctor may prescribe a different medication to prevent blood clots during this time. Your doctor will tell you when you should start taking apixaban again after your surgery. Follow these directions carefully. ? Call your doctor right away if you fall or injure yourself, especially if you hit your head. Your doctor may need to check you. What SPECIAL DIETARY instructions should I follow? Unless your doctor tells you otherwise, continue your normal diet. What should I do IF I FORGET to take a dose? Take the missed dose as soon as you remember it. However, if it is almost time for the next dose, skip the missed dose and continue your regular dosing schedule. Do not take a double dose to make up for a missed one. What SIDE EFFECTS can this medicine cause? Some side effects can be serious. If you experience any of these symptoms, call your doctor immediately or get emergency medical treatment: ? bleeding gums ? nosebleeds ? heavy vaginal bleeding ? red, pink, or brown urine ? red or black, tarry stools ? coughing up or vomiting blood or material that looks like coffee grounds ? swelling or joint pain ? headache ? rash ? chest pain or tightness ? swelling of the face or tongue ? trouble breathing ? wheezing ? feeling dizzy or faint Apixaban prevents blood from clotting normally, so it may take longer than usual for you to stop bleeding if you are cut or injured. This medication may also cause you to bruise or bleed more easily. Call your doctor right away if bleeding or bruising is unusual, severe, or cannot be controlled. Apixaban may cause other side effects. Call your doctor if you have any unusual problems while taking this medication. If you experience a serious side effect, you or your doctor may send a report to the Food and Drug Administration's (FDA) MedWatch Adverse Event Reporting program online (https://www.fda.gov/Safety/MedWatch) or by phone ( ). What should I know about STORAGE and DISPOSAL of this medication? Keep this medication in the container it came in, tightly closed, and out of reach of children. Store it at room temperature and away from light, excess heat and moisture (not in the bathroom). Unneeded medications should be disposed of in special ways to ensure that pets, children, and other people cannot consume them. However, you should not flush this medication down the toilet. Instead, the best way to dispose of your medication is through a medicine take-back program. Talk to your pharmacist or contact your local garbage/recycling department to learn about take-back programs in your community. See the FDA's Safe Disposal of Medicines website (https://goo.gl/c4Rm4p) for more information if you do not have access to a take-back program. It is important to keep all medication out of sight and reach of children as many containers (such as weekly pill minders and those for eye drops, creams, patches, and inhalers) are not child-resistant and young children can open them easily. To protect young children from poisoning, always lock safety caps and immediately place the medication in a safe location - one that is up and away and out of their sight and reach. https://www.upandaway.org What should I do in case of OVERDOSE? In case of overdose, call the poison control helpline at . Information is also available online at https://www.poisonhelp.org/help. If the victim has collapsed, had a seizure, has trouble breathing, or can't be awakened, immediately call emergency services at 911. Symptoms of overdose may include the following: ? unusual bleeding or bruising ? red, brown, or pink urine ? red or black, tarry stools ? coughing up or vomiting blood or material that looks like coffee grounds What OTHER INFORMATION should I know? Keep all appointments with your doctor. Do not let anyone else take your medication. Ask your pharmacist any questions you have about refilling your prescription. It is important for you to keep a written list of all of the prescription and nonprescription (oona-epe-srsippk) medicines you are taking, as well as any products such as vitamins, minerals, or other dietary supplements. You should bring this list with you each time you visit a doctor or if you are admitted to a hospital. It is also important information to carry with you in case of emergencies. This report on medications is for your information only, and is not considered individual patient advice. Because of the changing nature of drug information, please consult your physician or pharmacist about specific clinical use. The [employer] represents that the information provided hereunder was formulated with a reasonable standard of care, and in conformity with professional standards in the field. The [employer] makes no representations or warranties, express or implied, including, but not limited to, any implied warranty of merchantability and/or fitness for a particular purpose, with respect to such information and specifically disclaims all such warranties. Users are advised that decisions regarding drug therapy are complex medical decisions requiring the independent, informed decision of an appropriate health care professionals, and the information is provided for informational purposes only. The entire monograph for a drug should be reviewed for a thorough understanding of the drug's actions, uses and side effects. The [employer] does not endorse or recommend the use of any drug. The information is not a substitute for medical care. AHFS? Patient Medication Information?. ? Copyright, 2023. The [employer]?, [address], [address], [place], [place]. All Rights Reserved. Duplication for commercial use must be authorized by [facility]. Selected Revisions: April 13, 2023. AHFS? Patient Medication Information?. ? Copyright, 2023 [facility]2024-11-13 11:45:39 Problem: Excessive Fluid Volume Goal: Fluid and electrolyte balance are achieved/maintained 04/11/2024 1145 by Humza Garcia RN Outcome: Progressing 04/11/2024 1145 by Humza Garcia RN Outcome: Progressing The patient is Moderately Stable - Low risk of patient condition declining or worsening The patient's goals for the shift include Hemodialysis. Patient completed 3.5hrs of hemodialysis with 2.5L UF removal. -[facility] Internal [facility]2024-11-13 09:44:23 The patient is Moderately Stable - Low risk of patient condition declining or worsening The patient's goals for the shift include VSS, HD The clinical goals for the shift include feel better Over the shift, the patient did not make progress toward the following goals. Barriers to progression include pending outpatient dialysis chair. Recommendations to address these barriers include . [facility]2024-11-13 05:47:42 Problem: Knowledge Deficit Goal: Patient/family/caregiver demonstrates understanding of disease process, treatment plan, medications, and discharge instructions Outcome: Ongoing Problem: Excessive Fluid Volume Goal: Fluid and electrolyte balance are achieved/maintained Outcome: Ongoing The patient is Moderately Stable - Low risk of patient condition declining or worsening The patient's goals for the shift include VSS The clinical goals for the shift include feel better -[facility] Internal [facility]2024-11-12 07:36:03 The patient is Moderately Stable - Low risk of patient condition declining or worsening The patient's goals for the shift include stable VS,comfort and safety The clinical goals for the shift include get some rest and sleep,no pain,no fall Over the shift, the patient did not make progress toward the following goals. Barriers to progression include pending HD chair. Recommendations to address these barriers include . [facility]2024-11-12 02:19:52 The patient is Moderately Stable - Low risk of patient condition declining or worsening The patient's goals for the shift include safety The clinical goals for the shift include safety ,stable vitals Problem: Cardiac functions impaired Goal: Cardiac: Symptoms and strategies for management understood Outcome: Ongoing Problem: Cardiac functions impaired Goal: Cardiac: Symptoms managed (mcc) Outcome: Ongoing Problem: Knowledge Deficit Goal: Patient/family/caregiver demonstrates understanding of disease process, treatment plan, medications, and discharge instructions Outcome: Ongoing Problem: Excessive Fluid Volume Goal: Fluid and electrolyte balance are achieved/maintained Outcome: Ongoing -[facility] [id number] 10:06:57 Problem: Knowledge Deficit Goal: Patient/family/caregiver demonstrates understanding of disease process, treatment plan, medications, and discharge instructions 04/09/2024 1005 by Burton Shah RN Outcome: Progressing 04/09/2024 1000 by Burton Shah RN Outcome: Progressing Problem: Excessive Fluid Volume Goal: Fluid and electrolyte balance are achieved/maintained 04/09/2024 1005 by Burton Shah RN Outcome: Progressing 04/09/2024 1000 by Burton Shah RN Outcome: Progressing Problem: Cardiac functions impaired Goal: Cardiac: Symptoms and strategies for management understood Outcome: Progressing [facility]2024-11-11 07:32:50 The patient is Moderately Unstable - Medium risk of patient condition declining or worsening The patient's goals for the shift include safety, hemodynamically stable The clinical goals for the shift include safety, hemodynamically stable [facility]2024-11-11 04:56:53 Problem: Knowledge Deficit Goal: Patient/family/caregiver demonstrates understanding of disease process, treatment plan, medications, and discharge instructions Outcome: Progressing Problem: Excessive Fluid Volume Goal: Fluid and electrolyte balance are achieved/maintained Outcome: Progressing [facility]2024-11-10 09:58:25 The patient is Moderately Stable - Low risk of patient condition declining or worsening The patient's goals for the shift include safety, hemodynamicaly stable The clinical goals for the shift include safety, hemodynamicaly stable Over the shift, the patient did not make progress toward the following goals. Barriers to progression include dialysis 04/09. Recommendations to address these barriers include complete dialysis as ordered. [facility]2024-11-10 04:38:55 Problem: Cardiac functions impaired Goal: Cardiac: Symptoms and strategies for management understood Outcome: Progressing Goal: Cardiac: Symptoms managed (mcc) Outcome: Progressing Problem: Knowledge Deficit Goal: Patient/family/caregiver demonstrates understanding of disease process, treatment plan, medications, and discharge instructions Outcome: Progressing Problem: Excessive Fluid Volume Goal: Fluid and electrolyte balance are achieved/maintained Outcome: Progressing [facility]2024-11-09 14:18:53 The patient is Moderately Stable - Low risk of patient condition declining or worsening The patient's goals for the shift include to remain stable The clinical goals for the shift include to get some sleep Over the shift, the patient did make progress toward the following goals. Barriers to progression include none. Recommendations to address these barriers include none. [facility]2024-11-09 04:22:38 The patient is Moderately Stable - Low risk of patient condition declining or worsening The patient's goals for the shift include remain stable The clinical goals for the shift include get some rest while on bipap Over the shift, the patient did make progressions towards goal and bipap was used majority of shift -[facility] [place] [id number] 23:42:43 Patient took off her Bipap. Only wore for one hour. Bipap is on stand by at this time. -[facility] Respiratory TherapyUniversity [id number] 20:29:05 Bipap is on standby at this time. [facility]2024-11-08 05:30:00 MERA Steele and CCU resident Tabitha notified that patient with complaints of SOB, X-ray ordered. Oxygen liters increased, patient no longer complaining of SOB. FISH PROCESSING SUPERVISOR and CCU Tabitha updated with new x-ray, concern for worsening chest x-ray. FISH PROCESSING SUPERVISOR bedside to educate patient on wearing BiPap, patient agreed to wear BiPap. Patient no longer with complaints of SOB. -[facility] Internal MedicineUniversity [id number] 22:30:00 MERA Steele informed patient's blood sugar 182, patient with known history of DM, on home Novolin per patient. Inquired if we wanted to increase sliding scale to Q6. Will reassess with morning labs. No new orders. [place] [id number] 22:00:00 The patient is Moderately Stable - Low risk of patient condition declining or worsening The patient's goals for the shift include remain stable The clinical goals for the shift include stay off pressor [facility]2024-11-07 04:56:06 Problem: Cardiac functions impaired Goal: Cardiac: Symptoms and strategies for management understood Outcome: Progressing Goal: Cardiac: Symptoms managed (mcc) Outcome: Progressing Problem: Physical Restraint Goal: I will require minimum level of restraint Outcome: Progressing Problem: Knowledge Deficit Goal: Patient/family/caregiver demonstrates understanding of disease process, treatment plan, medications, and discharge instructions Outcome: Progressing Problem: Excessive Fluid Volume Goal: Fluid and electrolyte balance are achieved/maintained Outcome: Progressing -[facility] Internal MedicineUniversity [id number] 23:16:03 Brief Event Note: 2000: notified by RN that patient is feeling SOB and CP. She was previously on 2L NC and now required 4L NC for subjective SOB. Physical exam notable for 1+ pitting edema of the bilateral lower extremities and lungs sounds were without wheezing or crackles. Patient was awake and alert, did not appear to be in any acute distress and did not speak in labored sentences. On review of telemetry, patient appeared to be in afib vs aflutter with rates varying from 50s to 80s >EKG was ordered which showed ST changes but did not meet ACS criteria. There was a 1mm J point elevation which was not previously seen on prior EKG. There also was a 1.5mm J point elevation on lead II. >troponin was ordered which was 9,866 from 15,637 on 04/01 >patient was already on heparin gtt, aspirin, and plavix. A repeat EKG and troponin were ordered for follow-up to evaluate for any dynamic changes. 21:15: notified by RN that patient is feeling more SOB and was in tripod position. Upon arrival to bedside, patient was sitting on edge of hospital and reported difficulty breathing when laying flat or when sitting up for too long. She reported pleuritic chest pain on inspiration. She reported that her CP started 3 days ago. -patient was now on 6L NC due to subjective dyspnea. SBP was 150s. -stat VBG was 7.42/ 41/ 32/ 27 -stat CXR showed bilateral pleural effusions and evidence of vascular congestion -repeat EKG with concern for more diffuse J point elevations, concerning for pericarditis. TN interval unable to be read given patient was in a-fib. -bedside US with possible decrease in EF (was previously 60-65%) and small (<1cm) pericardial effusion. Plan: -nephrology consulted for HD vs CRRT for volume removal. Per nephro, will plan to do full HD session in AM unless patient with worsening O2 requirement overnight. -will treat for pericarditis. Given patient with GUILHERME non-recovery/ESRD, unable to do colchicine per nephro. Unable to do prednisone given recent DE posing increased risk of myocardial rupture. >Aspirin 162mg q8h ordered -will f/u EKG and troponin -TTE ordered Tabitha Bedoya MD Internal Medicine, PGY-3 [facility] Cosigned by Carla Gayle MD at 04/05/2024 1:20 PM WHEEL PRESSER L PRESSER L PRESSER Internal MedicineUniversity [id number] 15:10:48 Care plan reviewed and updated. -[facility]Child[facility] [id number] 14:50:36 The patient is Moderately Unstable - Medium risk of patient condition declining or worsening The patient's goals for the shift include remain stable The clinical goals for the shift include stay off pressors, monitor cardiac and respiratory statu -[facility] Internal MedicineUniversity [id number] 03:09:57 Problem: Physical Restraint Goal: I will require minimum level of restraint Outcome: Met Problem: Cardiac functions impaired Goal: Cardiac: Symptoms and strategies for management understood Outcome: Progressing Goal: Cardiac: Symptoms managed (buttermaker continuous churn) Outcome: Progressing [facility]2024-11-05 14:14:57 Problem: Cardiac functions impaired Goal: Cardiac: Symptoms and strategies for management understood Outcome: Progressing Goal: Cardiac: Symptoms managed (mcc) Outcome: Progressing [facility]2024-11-05 03:56:10 Problem: Cardiac functions impaired Goal: Cardiac: Symptoms and strategies for management understood Outcome: Progressing Goal: Cardiac: Symptoms managed (buttermaker continuous churn) Outcome: Progressing [facility]2024-11-04 17:51:31 Problem: Cardiac functions impaired Goal: Cardiac: Symptoms and strategies for management understood Outcome: Progressing Goal: Cardiac: Symptoms managed (mcc) Outcome: Progressing Problem: Physical Restraint Goal: I will require minimum level of restraint Outcome: Progressing [facility]2024-11-03 20:32:55 The patient is Moderately Unstable - Medium risk of patient condition declining or worsening The patient's goals for the shift include remain stable (hemodynamically) The clinical goals for the shift include stay off pressors, monitor cardiac and respiratory statu [facility]2024-11-03 12:48:28 T Problem: Cardiac functions impaired Goal: Cardiac: Symptoms and strategies for management understood Outcome: Not Progressing Goal: Cardiac: Symptoms managed (buttermaker continuous churn) Outcome: Ongoing Problem: Physical Restraint Goal: I will require minimum level of restraint Outcome: Deferred -[facility] Internal [facility]2024-11-02 22:26:33 The patient is Moderately Unstable - Medium risk of patient condition declining or worsening The patient's goals for the shift include remain hemodynamically stable The clinical goals for the shift include wean off levophed [facility]2024-11-02 15:00:26 Problem: Cardiac functions impaired Goal: Cardiac: Symptoms and strategies for management understood Outcome: Ongoing Goal: Cardiac: Symptoms managed (mcc) Outcome: Ongoing Problem: Physical Restraint Goal: I will require minimum level of restraint Outcome: Ongoing [facility]2024-11-02 07:13:21 At the beginning of shift, RN draws venous gas to check lactic and potassium. Potassium was in the 5s and lactic acid was around 4s. CCU team has been notified at the time. Patient was hemodynamically stable, 4x orientated. Renal team switched 4k bags to 2k bags. Around 2300, patient was hypotensive. MAP 40s/SBP 50s. CCU team came to bedside. RN started levo and CCU team placed arterial line. RN trends lactic acid and troponin throughout the night. Lactic acid -> 5.23 -> 4.11 -> 2.34 Troponin -> 22k -> 16k -> 15,600 CCU team fellow, Doug Hale MD was following closely with RN and patient throughout the night. CCU fellow approved and acknowledged all critical labs throughout the night. [facility] Internal [facility]2024-11-01 22:43:18 The patient is Moderately Unstable - Medium risk of patient condition declining or worsening The patient's goals for the shift include Comfort The clinical goals for the shift include patient remains hemodynamically stable [place] 018134-11-01 03:18:39 Problem: Cardiac functions impaired Goal: Cardiac: Symptoms and strategies for management understood Outcome: Ongoing Goal: Cardiac: Symptoms managed (buttermaker continuous churn) Outcome: Ongoing Problem: Physical Restraint Goal: I will require minimum level of restraint Outcome: Ongoing [facility] Internal [facility]2024-11-01 00:43:50 [place] 84884-11-01 00:43:50 [place] 84884-11-01 00:43:50 [place] 84884-10-31 04:12:48 Problem: Cardiac functions impaired Goal: Cardiac: Symptoms and strategies for management understood Outcome: Ongoing Goal: Cardiac: Symptoms managed (buttermaker continuous churn) Outcome: Ongoing [facility]2024-10-30 00:38:01 Problem: Cardiac functions impaired Goal: Cardiac: Symptoms and strategies for management understood Outcome: Progressing Goal: Cardiac: Symptoms managed (buttermaker continuous churn) Outcome: Progressing Problem: Physical Restraint Goal: I will require minimum level of restraint Outcome: Progressing [facility]2024-10-29 17:27:19 Problem: Cardiac functions impaired Goal: Cardiac: Symptoms and strategies for management understood Outcome: Progressing Goal: Cardiac: Symptoms managed (buttermaker continuous churn) Outcome: Progressing Problem: Physical Restraint Goal: I will require minimum level of restraint Outcome: Progressing [facility]2024-10-29 16:45:00 Patient left the unit at 1405 to go to flower shop laborer/designer. She returned at 1629. Marissa Damico RNOklance [id number] 14:35:00 pt is scheduled for flower shop laborer/designer procedure today. Chart has been reviewed for any contraindications to proceed with procedure. pt's Labs, Meds, ECHO, and all pertinent orders have been reviewed. Spoke with pt's, they are well educated over the procedure. Pt has ET tube in place and is currently being paced with temp pacer. IV line in place and all necessary arm bands present. Reviewed all consents. Communicated with nurse caring for pt over plan of care and any necessary orders to complete. CardiologyOklance DanielsKltjjkm5421-68-77 02:14:00 Associated Order(s): Intubation; Arterial Line; Central Line History of Present Illness: Chief Complaint: Patient presents with Fall Patient with hx of DM presents via lifeflight as a level 1 trauma after reported fall from bed. Was noted to be in complete heart block in the field and transcutaneous pacing was initiated. On arrival to the trauma bay she is GCS 11 (E4, V1, M6), C collar in place. She was downgraded from a level 1 trauma as her problems were medical and less so trauma. Family at later time provided history that patient was seen by her PCP this week as she was not feeling well. The evening before the incident she told her family she did not feel well. At 2 AM she woke up, attempted to go to the restroom however collapsed and was minimally responsive to her family. EMS was called. Patient History No past medical history on file. No past surgical history on file. No family history on file. Social History: Tobacco Use Smoking status: Not on file Smokeless tobacco: Not on file Substance Use Topics Alcohol use: Not on file Drug use: Not on file Review of Systems: Review of Systems Physical Exam: Constitutional: Appearance: She is ill-appearing. Comments: GCS 11 (E4,M6,V1). Sonorous respirations, C collar in place, no obvious external signs of trauma, HENT: Head: Atraumatic. Pulmonary: Comments: Sonorous respirations. Rhonchorus breath sounds. Bilateral chest rise. Abdominal: Palpations: Abdomen is soft. Musculoskeletal: Comments: Moving all extremities spontaneously, following commands. Skin: General: Skin is dry. Neurological: Comments: Minimally interactive Triage Vitals: BP: 84/60, Heart Rate: (!) 39, Resp: 25, SpO2: 98 % Last Recorded Vitals: BP: 139/60, Heart Rate: (!) 49, Resp: (!) 70, SpO2: 100 % Procedures Performed: Intubation Performed by: Madisyn Prather MD Authorized by: Dahlia Mohr MD Consent: Consent obtained: Emergent situation Pre-procedure details: Indications: airway protection and altered consciousness Patient status: Altered mental status C-collar present: yes Pharmacologic strategy: RSI Induction agents: Etomidate Paralytics: Rocuronium Procedure details: Preoxygenation: Bag valve mask CPR in progress: no Number of attempts: 1 Successful intubation attempt details: Intubation method: Oral Intubation technique: video assisted Laryngoscope blade: Hypercurved Bougie used: no Grade view: I Tube size (mm): 7.5 Tube type: Cuffed Tube visualized through cords: yes Placement assessment: Tube secured with: ETT goldberg Breath sounds: Equal Placement verification: chest rise, colorimetric ETCO2 and CXR verification CXR findings: Appropriate position Post-procedure details: Procedure completion: Tolerated Arterial Line Performed by: Madisyn Prather MD Authorized by: Dahlia Mohr MD Consent: Consent obtained: Emergent situation Indications: Indications: hemodynamic monitoring Pre-procedure details: Skin preparation: Chlorhexidine Sedation: Sedation type: None Anesthesia: Anesthesia method: None Procedure details: Location: R radial Needle gauge: 18 G Placement technique: Ultrasound guided Number of attempts: 5 or more Transducer: waveform confirmed Post-procedure details: Post-procedure: Sterile dressing applied and sutured CMS: Normal Procedure completion: Tolerated Central Line Performed by: Madisyn Prather MD Authorized by: Dahlia Mohr MD Consent: Consent obtained: Emergent situation Transvenous Pacer Placement Attending: Dahlai Mohr Emergent procedure was identified and a time-out was completed verifying correct patient, procedure, site, and positioning. The patient’s right neck was prepped and draped in sterile fashion. 1% Lidocaine was used to anesthetize the surrounding skin area. Ultrasound was used to identify Internal Jugular Vein. A needle was used to access the vein. A guide wire was threaded over this and a Cordis was placed with proper technique. Ultrasound was used to confirm proper line placement. A transvenous pacemaker was floated and placed into the right ventricle with capture. The patient tolerated the procedure well and there were no complications. Blood loss was minimal. ED Course : ED Course: as of 03/27/24 1650 Tue Mar 27, 2024 0345 HS Troponin I(!): 1,846 [] 0345 Lactic Acid Lvl(!!): 7.05 [] ED Course: User Index [] Madisyn Prather MD Disposition: Medical Decision Making Middle aged female presenting after collapsing and being noted in complete heart block in the field. Transcutaneous pacing was initiated. On arrival to the trauma bay she was noted to be GCS 11 and with complete heart block, only intermittent capture at 150 amps transcutaneous pacing. Atropine was given in the field. Another 0.5 mg atropine push was given as well as epinephrine which did not show improvement. Radial arterial line was placed in the R wrist. Patient was intubated for airway protection. Proper placement was confirmed with chest xray, which was notable for consolidations consistent with possible aspiration vs PNA. At this time she was downgraded from a level 1 trauma as there were minimal signs of trauma and history/exam was more consistent with a medical emergency. MAPs were noted to be intermittently in the 50's, but then improved to 70. No pressors were required. At this time she was deemed in stable condition to go to CT scan for CTH CT C spine to r/o ICH or traumatic central injury. Her poor mental status was suspected to be 2/2 poor perfusion. She was moving all extremities prior to intubation and there were no external signs of trauma so xrays of the extremities and CTCAP were deferred. While in scanner cardiology was consulted about this patient. It was determined that transvenous pacer would be placed in the ED. This was performed without complications and the patient was paced at 80 BPM. Labs were notable for leukocytosis. In the setting of consolidations in the lung and undifferentiated patient blood cultures were sent and antibiotics were given. Troponin is elevated. Suspected heart block 2/2 ischemia vs structural heart defect as the patient does not take any cardiac medications and she was not hyperkalemic. Will require ICU cardiology admission and possible flower shop laborer/designer vs pacemaker placement for definitive management. MEDICAL DECISION MAKING Complexity of Problems Addressed High: I am concerned about a severe complexity problem which was evidenced by the differential, and associated workup to rule out the severe problem: complete heart block, which is a new problem for this patient as evidenced by EKG, collapse. Complexity of Data Review Category 1: (# Of Data Points) Ordered the following tests: cbc, bmp, troponin, ekg and (Alternate Historian) For improved patient care, I received an additional history from who states patient was feeling ill the evening prior to the incident. Category 2: (Image/Tracing Interpretation): I contemporaneously during the patient encounter interpreted the following: CXR of the patient and these are my findings: proper ET tube placement, consolidations Category 3: (Network Field Engineer) I consulted and spoke with cardiolgy about the patient and they stated they agree and will see the patient. Risk of Management (Admission) Patient to be admitted to the hospital. Madisyn Prather DO PGY-2 Department of Emergency Medicine Amount and/or Complexity of Data Reviewed Labs: ordered. Decision-making details documented in ED Course. Radiology: ordered. Risk Prescription drug management. Scoring Tools Madisyn Prather MD 03/27/241720 Cosigned by Dahlia Mohr MD at 03/31/2024 11:52 AM CDT Associated attestation - Dahlia Mohr MD - 03/31/2024 11:52 AM CDT Teaching Attending Attestation: The patient was seen and examined by me in the presence of, or jointly with, the resident, and I agree with the History/Exam/Medical Decision Making documented unless further documented below.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
[2024-09-02] MEDS ORDERED: ONDANSETRON 4 MG/2 ML VIAL ONE (08:36)
[2024-09-02] MEDS ORDERED: MORPHINE 4 MG/ML SYR ONE (08:36)
[2024-09-02 09:13] LABS: Specific Gravity 1.013 (1.005-1.030); Sqamous Epithelial <5 /HPF (None Seen); Urine Bacteria None Seen /HPF (<20); Urine Bilirubin NEGATIVE (Negative); Urine Blood 1+ (Negative); Urine Clarity Clear (Clear); Urine Color Light-Yellow (Yellow); Urine Culture Reflex Order NOT NEEDED; Urine Glucose 4+ (Over) (Negative); Urine Ketones NEGATIVE (Negative); Urine Microscopic Reflex YN ORDER UMIC; Urine Nitrite NEGATIVE (Negative); Urine Protein 3+ (Negative); Urine Urobilinogen Normal (Normal); Urine WBC <5 /HPF (<5)
[2024-09-02 09:17] LABS: Absolute Basophils 0.1 K/uL (0-0.5); Absolute Eosinophils 0.2 K/uL (0-0.5); Absolute Lymphocytes (CBC) 1.6 K/uL (0.7-4.9); Absolute Monocytes 0.6 K/uL (0.1-1.3); Absolute Neutrophil 4.4 K/uL (1.8-8.0); Basophils % 1.2 % (0-1.3); Eosinophils % 2.7 % (0-4.4); Hematocrit 40.7 % (36.0-45.0); Hemoglobin 13.4 g/dL (12.0-15.0); Lymphocytes % 23.5 % (15.3-44.8); MCH 29.3 pg (27.0-35.0); MCV 88.7 fL (80-100); MPV 8.3 fL (7.6-11.3); Monocytes % 8.4 % (3.3-12.3); Neutrophils % 64.2 % (41.7-73.7); Nucleated Red Blood Cells % 0.1 % (0-0); Platelets 412 thou/uL (152-406); RBC Red Blood Cell Count 4.59 M/uL (3.86-4.86); Red Cell Distribution Width 18.2 % (12.1-15.2)
--- NOTE | 2024-09-02 09:20 | RAD REPORT ---
EXAMINATION: CT Abdomen Pelvis Wo Contrast CLINICAL INDICATION: Female, 64 years old. ABD PAIN TECHNIQUE: CT abdomen and pelvis was performed, without IV contrast, as per department protocol. Axia l, sagittal and coronal reconstructions were obtained. One or more of the following dose reduction techniques were used: Automated exposure control, adjustment of the mA and kV according to the patien t size, and iterative reconstruction. Unless otherwise specified, incidental findings do not require dedicated imaging follow-up. COMPARISON: 03/22/2015. FINDINGS: The lack of intravenous contrast limits the sensitivity of this exam for evaluation of solid visceral organs, vascular structures, and retroperitoneum. LOWER CHEST: The visualized lung bases are clear. LIVER: Normal in size and contour. No focal lesion. BILIARY SYSTEM: Status post cholecystectomy. SPLEEN: Normal size. No focal lesion. PANCREAS: No mass, ductal dilation, or rafa-pancreatic fluid. ADRENALS: Left adrenal 3.0 x 2.9 cm mass, not significantly changed. KIDNEYS AND URETERS: Numerous pelvic punctate radiodensities not exceeding 4 mm, favoring vascular ca lcifications although some may represent nonobstructing small calculi. Normal size and contour. No hydronephrosis. URINARY BLADDER: Normal contour. GASTROINTESTINAL TRACT: No evidence of bowel obstruction, significant free fluid, free air or abscess . APPENDIX: Normal appendix. LYMPH NODES: No lymphadenopathy. MUSCULOSKELETAL: No acute or suspicious osseous abnormality. ADDITIONAL FINDINGS: None. IMPRESSION: No acute or concerning abnormalities in the abdomen or pelvis, with evaluation limited by lack of IV contrast. Numerous bilateral renal pelvis punctate radiodensities not exceeding 4 mm, favoring vascular calcifi cations, although some may represent small nonobstructing calculi. Left adrenal mass, without significant interval change, favoring a benign process given interval stab ility.
[2024-09-02 10:12] LABS: Albumin/Globulin Ratio 0.7 (1.1-1.8); Bilirubin Total 0.5 mg/dL (0.2-1.0); Globulin 4.6 g/dL (2.3-3.5); Protein, Total 7.6 g/dL (6.4-8.2)
--- NOTE | 2024-09-02 10:46 | EDPHYS ---
Physician Documentation [facility] Name: Emilee Wright Age: 64 yrs Sex: Female : 1960 Arrival Date: 09/02/2024 Time: 07:48 Bed 6 Private MD: ED Physician Wilver Mary HPI: 09/02 08:22 This 64 yrs old Female presents to ER via Ambulatory with complaints of Abdominal Pain. sp3 08:22 64-year-old female with history of diabetes, hypertension, currently on dialysis and sp3 prior history of pancreatitis now presents to the ED with chief complaint epigastric abdominal pain radiating is a band across her upper abdomen over the last 48 hours. She denies any other symptoms except nausea. She denies headache, fever, chest pain, shortness of breath, lower abdominal pain, back pain, flank pain, urinary symptoms, POWERHOUSE TENDER symptoms, rash, syncope, neurological symptoms, travel history, prolonged immobilization, known sick contacts, or any other signs or symptoms on ROS at this time.. Historical: - Allergies: 08:01 diphenhydramine HCl; iw 08:01 loratadine; iw 08:01 Phenergan; iw - PMHx: 08:01 Diabetes - IDDM; Hypertension; Pancreatitis; dialysis; iw - PSHx: 08:01 Cholecystectomy; iw - Immunization history:: Adult Immunizations up to date. - Infectious Disease History:: Denies. - Social history:: Smoking status: Patient denies any tobacco usage or history of. ROS: 08:23 Constitutional: Negative for fever, chills, and weight loss, Eyes: Negative for injury, sp3 pain, redness, and discharge, ENT: Negative for injury, pain, and discharge, Neck: Negative for injury, pain, and swelling, Cardiovascular: Negative for chest pain, palpitations, and edema, Respiratory: Negative for shortness of breath, cough, wheezing, and pleuritic chest pain, Back: Negative for injury and pain, MS/Extremity: Negative for injury and deformity, Skin: Negative for injury, rash, and discoloration, Neuro: Negative for headache, weakness, numbness, tingling, and seizure, Psych: Negative for depression, anxiety, suicide ideation, homicidal ideation, and hallucinations, Allergy/Immunology: Negative for hives, rash, and allergies, Endocrine: Negative for neck swelling, polydipsia, polyuria, polyphagia, and marked weight changes, 08:23 All other systems are negative, Exam: 08:23 Constitutional: This is a well developed, well nourished patient who is awake, alert, sp3 and in no acute distress. Head/Face: Normocephalic, atraumatic. Eyes: Pupils equal round and reactive to light, extra-ocular motions intact. Lids and lashes normal. Conjunctiva and sclera are non-icteric and not injected. Cornea within normal limits. Periorbital areas with no swelling, redness, or edema. ENT: Nares patent. No nasal discharge, no septal abnormalities noted. External auditory canals are clear. Oropharynx with no redness, swelling, or masses, exudates, or evidence of obstruction, uvula midline. Mucous membranes moist. Neck: Trachea midline, no thyromegaly or masses palpated, and no cervical lymphadenopathy. Supple, full range of motion without nuchal rigidity, or vertebral point tenderness. No Meningismus. Chest/axilla: Normal chest wall appearance and motion. Nontender with no deformity. No lesions are appreciated. Cardiovascular: Regular rate and rhythm with a normal S1 and S2. No gallops, murmurs, or rubs. Normal PMI, no JVD. No pulse deficits. Respiratory: Lungs have equal breath sounds bilaterally, clear to auscultation and percussion. No rales, rhonchi or wheezes noted. No increased work of breathing, no retractions or nasal flaring. Back: No spinal tenderness. No costovertebral tenderness. Full range of motion. Skin: Warm, dry with normal turgor. Normal color with no rashes, no lesions, and no evidence of cellulitis. MS/ Extremity: Pulses equal, no cyanosis. Neurovascular intact. Full, normal range of motion. Neuro: Awake and alert, GCS 15, oriented to person, place, time, and situation. Cranial nerves II-XII grossly intact. Motor strength 5/5 in all extremities. Sensory grossly intact. Cerebellar exam normal. Normal gait. Psych: Awake, alert, with orientation to person, place and time. Behavior, mood, and affect are within normal limits. 08:23 ECG was reviewed by the Attending Physician. EKG demonstrates normal sinus rhythm at 82 bpm with normal intervals except QTc of 490, slightly leftward axis, normal QRS and nonspecific diffuse ST/T changes without evidence of acute ischemia. 08:23 Abdomen/GI: Pain to palpation epigastrically without peritoneal signs, rebound or guarding. Nonsurgical abdomen. No flank pain or lower abdominal pain noted. CVA tenderness negative., Vital Signs: 07:59 BP 200 / 83; Pulse 77; Resp 16; Temp 97.9; Pulse Ox 100% ; Weight 72.57 kg; Height 5 iw ft. 3 in. ; Pain 10/10; 09:30 BP 195 / 88; Pulse 86; Resp 16; Pulse Ox 99% on R/A; hb 10:47 BP 217 / 96; Pulse 78; Resp 15; Pulse Ox 97% on R/A; hb 11:01 BP 154 / 64; Pulse 74; Resp 16; Pulse Ox 99% on R/A; Pain 4/10; hb 07:59 Body Mass Index 28.34 (72.57 kg, 160.02 cm) iw 07:59 Pain Scale: Adult iw 11:01 Pain Scale: Adult hb MDM: 08:05 Medical Screening Exam initiated sp3 08:25 Data reviewed: vital signs, nurses notes, old medical records, lab test result(s), EKG, sp3 radiologic studies. ED course: 64-year-old female with PMH above now with epigastric pain. Differential diagnosis includes pancreatitis, gastritis, colitis, other biliary pathology, skeletal pain, functional abdominal pain, constipation, other small bowel pathology, UTI, kidney stone, among others. I am not highly suspicious of POWERHOUSE TENDER pathology, vascular pathology including aorta, acute coronary syndrome, sepsis, shock or any other critical pathology at this time. Workup include CT scan of the abdomen pelvis noncontrast, general labs, UA, pain and nausea control and general supportive care. Disposition pending workup and patient course.. 10:39 ED course: Patient with elevated troponin at 215. Patient has no current symptoms or sp3 complaints. Creatinine at 2. Will transfer to [facility] where her assistant spa director is as patient request.. 09/02 08:12 Order name: CBC with Diff; Complete Time: 10: sp3 09/02 08:12 Order name: CMP; Complete Time: 10:25 sp3 09/02 08:12 Order name: Lipase; Complete Time: 10: sp3 09/02 08:12 Order name: Urinalysis w/ reflexes; Complete Time: 09:22 sp3 09/02 08:12 Order name: Lactate w/ 2H reflex if indic.; Complete Time: 09:22 sp3 09/02 08:12 Order name: Troponin High Sensitivity; Complete Time: 10:25 sp3 09/02 08:12 Order name: CT Abd/Pelvis - Without Contrast; Complete Time: 09:22 sp3 09/02 08:12 Order name: EKG; Complete Time: 08:13 sp3 09/02 08:12 Order name: IV Saline Lock; Complete Time: 08:35 sp3 09/02 08:12 Order name: Labs collected and sent; Complete Time: 08:35 sp3 09/02 08:12 Order name: EKG - Nurse/Tech; Complete Time: 08:23 sp3 09/02 08:46 Order name: Labs - recollect needed: green, lavender; Complete Time: 09:07 iw Administered Medications: 08:50 Drug: Ondansetron IVP 4 mg IVP once; over 2 minutes Route: IVP; Site: right forearm; hb 09:42 Follow up: Response: No adverse reaction hb 08:50 Drug: morphine IVP or IV 4 mg IVP once over 4 mins Route: IVP; Infused Over: 4 mins; hb Site: right forearm; 09:42 Follow up: Response: No adverse reaction hb 10:51 Drug: Nitroglycerin Sublingual 0.4 mg Sublingual once; every five minute if needed hb (hold for SBP 150) x3 Route: Sublingual; 11:50 Drug: Nitroglycerin Sublingual 0.4 mg Sublingual once; every five minute if needed hb (hold for SBP 150) x3 Route: Sublingual; Disposition Summary: 09/02/24 10:46 Transfer Ordered Notes: Transfer Location: [facility] System sp3 Reason: Higher level of care sp3 Condition: Stable sp3 Problem: an acute exacerbation sp3 Symptoms: have worsened sp3 Accepting Physician: JOSE SIDDIQUI(09/02/24 11:57) hb Diagnosis - NSTEMI, epigastric pain sp3 - NSTEMI, epigastric pain, hypertensive urgency sp3 Forms: - Medication Reconciliation Form sp3 - SBAR form sp3 Critical care time excluding procedures: 10:46 Critical care time: Bedside Care: 10 minutes, Consultation: 10 minutes, Family sp3 Intervention: 10 minutes. Total time: 30 minutes Signatures: Dispatcher [employer] EDMS Alyson Portillo, RN RN iw Stephanie Guadarrama RN RN hb Wilver Mary MD MD sp3 Corrections: (The following items were deleted from the chart) 08:13 08:13 CBC+H.LAB.BRZ ordered. EDMS EDMS 08:13 08:13 COMPREHENSIVE METABOLIC PANEL+C.LAB.BRZ ordered. EDMS EDMS 08:13 08:13 LIPASE+C.LAB.BRZ ordered. EDMS EDMS 08:13 08:13 Urinalysis+U.LAB.BRZ ordered. EDMS EDMS 08:13 08:13 LACTATE+C.LAB.BRZ ordered. EDMS EDMS 08:13 08:13 Troponin High Sensitivity+C.LAB.BRZ ordered. EDMS EDMS 10:46 10:46 TBD HCA sp3 sp3 11:57 10:46 TBD HCA sp3 hb
--- NOTE | 2024-09-02 10:46 | ER ---
Nurse's Notes [facility] Name: Emilee Wright Age: 64 yrs Sex: Female : 1960 Arrival Date: 09/02/2024 Time: 07:48 Bed 6 Private MD: Diagnosis: NSTEMI, epigastric pain;NSTEMI, epigastric pain, hypertensive urgency Presentation: 09/02 07:59 Chief complaint: Patient states: pain across entire abdomen X 3 days , + nausea, no iw diarrhea , no vomiting , constant pain, sharp pain. Coronavirus screen: At this time, the client does not indicate any symptoms associated with coronavirus-19. Ebola Screen: No symptoms or risks identified at this time. Initial Sepsis Screen: Does the patient meet any 2 criteria? No. Patient's initial sepsis screen is negative. Does the patient have a suspected source of infection? No. Patient's initial sepsis screen is negative. Risk Assessment: Do you want to hurt yourself or someone else? Patient reports no desire to harm self or others. Onset of symptoms was August 30, 2024. 07:59 Method Of Arrival: Ambulatory iw 07:59 Acuity: CARLYLE 3 iw Historical: - Allergies: 08:01 diphenhydramine HCl; iw 08:01 loratadine; iw 08:01 Phenergan; iw - PMHx: 08:01 Diabetes - IDDM; Hypertension; Pancreatitis; dialysis; iw - PSHx: 08:01 Cholecystectomy; iw - Immunization history:: Adult Immunizations up to date. - Infectious Disease History:: Denies. - Social history:: Smoking status: Patient denies any tobacco usage or history of. Screenin:15 [facility] ED Fall Risk Assessment (Adult) History of falling in the last 3 months, hb including since admission No falls in past 3 months (0 pts) Confusion or Disorientation No (0 pts) Intoxicated or Sedated No (0 pts) Impaired Gait No (0 pts) Mobility Assist Device Used No (0 pt) Altered Elimination No (0 pt) Score/Fall Risk Level 0 - 2 = Low Risk Oriented to surroundings, Maintained a safe environment, Educated pt \T\ family on fall prevention, incl call for assistance when getting out of bed. Abuse screen: Denies threats or abuse. Denies injuries from another. Nutritional screening: No deficits noted. Tuberculosis screening: No symptoms or risk factors identified. Assessment: 08:15 General: Appears in no apparent distress. uncomfortable, Behavior is calm, cooperative. hb Pain: Pain currently is 10 out of 10 on a pain scale. Neuro: Level of Consciousness is awake, alert, obeys commands, Oriented to person, place, time, situation. Cardiovascular: Patient's skin is warm and dry. Respiratory: Respiratory effort is even, unlabored, Respiratory pattern is regular, symmetrical. GI: Reports lower abdominal pain, upper abdominal pain, nausea. : No signs and/or symptoms were reported regarding the genitourinary system. EENT: No signs and/or symptoms were reported regarding the EENT system. Derm: Skin is pink, warm \T\ dry. Musculoskeletal: No signs and/or symptoms reported regarding the musculoskeletal system. 09:30 Reassessment: Patient appears in no apparent distress at this time. Patient and/or hb family updated on plan of care and expected duration. Pain level reassessed. Patient is alert, oriented x 3, equal unlabored respirations, skin warm/dry/pink. 10:30 Reassessment: Patient appears in no apparent distress at this time. Patient and/or hb family updated on plan of care and expected duration. Pain level reassessed. Patient is alert, oriented x 3, equal unlabored respirations, skin warm/dry/pink. 11:07 Reassessment: Report called to Albertina KIM at [facility]. Vital Signs: 07:59 BP 200 / 83; Pulse 77; Resp 16; Temp 97.9; Pulse Ox 100% ; Weight 72.57 kg; Height 5 iw ft. 3 in. ; Pain 10/10; 09:30 BP 195 / 88; Pulse 86; Resp 16; Pulse Ox 99% on R/A; hb 10:47 BP 217 / 96; Pulse 78; Resp 15; Pulse Ox 97% on R/A; hb 11:01 BP 154 / 64; Pulse 74; Resp 16; Pulse Ox 99% on R/A; Pain 4/10; hb 07:59 Body Mass Index 28.34 (72.57 kg, 160.02 cm) iw 07:59 Pain Scale: Adult iw 11:01 Pain Scale: Adult hb ED Course: 07:51 Patient arrived in ED. mr 07:56 Wilver Mary MD is Attending Physician. sp3 08:01 Triage completed. iw 08:03 Arm band placed on. iw 08:15 Patient has correct armband on for positive identification. Bed in low position. Call hb light in reach. Provided Education on: tests, result times, medications, use of call light, bathroom location . Client placed on continuous cardiac and pulse oximetry monitoring. NIBP monitoring applied. phototypesetting equipment monitor on. Pulse ox on. NIBP on. 08:23 EKG done, by ED staff, reviewed by Wilver Mary MD. em1 08:31 Initial lab(s) drawn, by me, sent to lab. Inserted saline lock: 22 gauge in right hb forearm, using aseptic technique. Blood collected. Flushed with 10 mL NS. 08:34 Stephanie Guadarrama, RN is Primary Nurse. hb 08:[address] via wheelchair. hb 08:35 Troponin High Sensitivity Sent. hb 08:35 Lactate w/ 2H reflex if indic. Sent. hb 08:35 CBC with Diff Sent. hb 08:35 CMP Sent. hb 08:35 Lipase Sent. hb 08:38 CT Abd/Pelvis - Without Contrast In Process Unspecified. EDMS 10:31 initiated a transfer with Sharifa from the [facility] transfer center. eb 10:40 administrative approval given by Sharifa Bowling Rn T.C / patient has been accepted to [facility] ED/ Dr. Mary Ayon has accepted the patient in transfer without conference with Dr. Mary/ report to be called to [phone]. 11:08 No provider procedures requiring assistance completed. Patient transferred, IV remains hb in place. Administered Medications: 08:50 Drug: Ondansetron IVP 4 mg IVP once; over 2 minutes Route: IVP; Site: right forearm; hb 09:42 Follow up: Response: No adverse reaction hb 08:50 Drug: morphine IVP or IV 4 mg IVP once over 4 mins Route: IVP; Infused Over: 4 mins; hb Site: right forearm; 09:42 Follow up: Response: No adverse reaction hb 10:51 Drug: Nitroglycerin Sublingual 0.4 mg Sublingual once; every five minute if needed hb (hold for SBP 150) x3 Route: Sublingual; 11:50 Drug: Nitroglycerin Sublingual 0.4 mg Sublingual once; every five minute if needed hb (hold for SBP 150) x3 Route: Sublingual; Medication: 11:08 VIS not applicable for this client. hb Outcome: 10:46 ER care complete, transfer ordered by . sp3 11:08 Transferred by ground EMS Note: [facility] - [facility] hb 11:08 Condition: stable 11:08 Instructed on the need for transfer, Demonstrated understanding of instructions, 11:57 Patient left the ED. hb Signatures: Dispatcher [employer] EDPA Jalyn Horner, Reg Reg mr Alyson Portillo RN RN iw Franco Daniel em1 Stephanie Guadarrama RN RN hb Botello, Elizabeth eb Patel, Setul, MD MD sp3 Corrections: (The following items were deleted from the chart) 08:03 07:59 BP 200 / 83; Pulse 77bpm; Resp 16bpm; Pulse Ox 100%; Temp 97.9F; Pain 10/10, iw Adult; iw
[2024-09-02] MEDS ORDERED: NITROGLYCERIN 0.4 MG/TAB SL ONE (10:49)
[2024-09-02 12:08] VITALS: TEMP 97.9
[2024-09-02 12:25] VITALS: BP 154/64; O2SAT 99
--- NOTE | 2024-09-03 11:31 | EKG ---
Test Date: 2024-09-02 Test Time: 08:22:03 [employer] Advisor: CL MEASUREMENT RESULTS: Intervals: Rate: 82 MN: 198 QRSD: 98 QT: 420 QTc: 490 [place]: P: 60 MN: 198 QRS: -4 T: 67 INTERPRETIVE STATEMENTS: Normal sinus rhythm Inferior infarct, age undetermined Anterolateral infarct, age undetermined Abnormal ECG No previous ECG available for comparison Electronically Signed On 09-03-24 11:28:56 CDT by Christiano Ash
== END 2024-09-02 11:57 | disposition short-term general hospital (02) ==
LOC: ER 07:48
DX: I21.4 Non-ST elevation (NSTEMI) myocardial infarction (principal); I16.0 Hypertensive urgency
CPT/HCPCS: 36415; 74176; 80053; 81001; 83605; 83690; 84484; 85025; 93005; 96374; 96375; 99285; J2405